=== PATIENT | male | born 1945 | race Caucasian/White ===

== ENCOUNTER 2019-11-11 06:45 | Outpatient (CLI) | payer OTHER, SELFPAY ==
--- NOTE | 2019-11-11 07:15 | US_ITS ---
WS: [id number] RIGHT UPPER QUADRANT ULTRASOUND HISTORY: epigastric pain COMPARISON: None available. Liver: 11.0 cm in length. Normal size and echogenicity with no intrahepatic dilatation. No mass. Gallbladder: Normally distended gallbladder with no stones or wall thickening. CBD: 0.3 cm Pancreas: Normal size and echogenicity. Right kidney: 10.6 cm in length. Normal echogenicity with no mass or hydronephrosis. Aorta and IVC: Unremarkable. No ascites. Stomach mucosa was prominent and the antrum was distended during the examination. US/US gall bladder [id number] IMPRESSION: Normal RIGHT upper quadrant ultrasound. Thickening of the stomach mucosa and distention of the antrum. Consider gastroe nteritis.
== END 2019-11-11 06:46 | disposition home or self-care (01) ==
PROVIDERS: Visit Provider Surgery
DX: R10.13 Epigastric pain (principal)
CPT/HCPCS: 76705

== ENCOUNTER 2019-11-18 07:29 | Outpatient (CLI) | payer OTHER, SELFPAY ==
--- NOTE | 2019-11-18 08:00 | NM_ITS ---
WS: [id number] NUCLEAR MEDICINE HIDA SCAN CLINICAL INFORMATION: epigastric pain TECHNIQUE: Following intravenous administration of 8.1 mCi of technetium 99m mebrofenin, images of th e abdomen were obtained over the course of 60 minutes. Next, gallbladder ejection fraction was determ ined by obtaining preprandial and one-hour postprandial images of the gallbladder following oral vijaya stion of Ensure. COMPARISON: None. FINDINGS: Normal hepatic uptake at 5 minutes. Gallbladder is visualized by 20 minutes. Normal common bile duct and small bowel. No evidence of acute cholecystitis or choledocholithiasis. Gallbladder ejection fraction 38% at the lower end of the range but within normal limits. No evidence of chronic cholecystitis. NM/NM hepatobiliary w phar* [id number] IMPRESSION: 1. No evidence of acute cholecystitis. 2. Gallbladder ejection fraction 38% at the lower end of the range within norm al limits. No evidence of chronic cholecystitis.
== END 2019-11-18 07:30 | disposition home or self-care (01) ==
LOC: RAD 07:30
PROVIDERS: PCP Internal Medicine; Visit Provider Surgery
DX: R10.13 Epigastric pain (principal)
CPT/HCPCS: 78227; A9537

== ENCOUNTER 2019-12-01 05:51 | Day surgery (SDC) | payer OTHER, SELFPAY ==
[2019-12-01] VITALS (9 sets, daily range): BP systolic 99–128; BP diastolic 48–62; PULSE 60–75; RESP 14–18; TEMP 36–36.9; O2SAT 95–100
[2019-12-01] MEDS: sodium chloride 0.9% 1,000 ML 30 ML IV (06:25)
--- NOTE | 2019-12-01 06:30 | ANES.PREANE2 ---
Pre-Anesthetic Assessment Pre-Anesthetic Assessment: Height/Weight: Height 1.78 m Weight 86.183 kg Temp Pulse Resp BP Pulse Ox 96.8 F L 65 18 128/62 98 12/01/19 06:06 12/01/19 06:06 12/01/19 06:06 12/01/19 06:06 12/01/19 06:06 Preop Diagnosis: Chronic cholecystitis Proposed Procedure: Operation Date: 12/01/19 07:00 Proposed Procedures p Laparoscopic Cholecystectomy 16353 R10.9(Not Applicable) - Ever De Souza MD Familial anesthetic complications: None Was Beta Tressa taken within 24 hours: Yes Last intake: Intake Last Liquid Date 11/30/19 Last Liquid Time 21:30 Last Solid Date 11/30/19 Last Solid Time 21:30 Social: Social History: No alcohol and No tobacco Exam: Pre-Anes Outpt Exam: alert, oriented x 3, clear to auscultation bilaterally and regular rate & rhythm Airway: Cervical ROM: WNL MP: 4 Additional comments: plates Pulmonary: Pulmonary: COPD and Sleep apnea (cpap) CV/HEM: CV/HEM: HTN : : None reported Hepatic: Hepatic: None reported GI: GI: None reported Metabolic: Metabolic: DM (on insulin) Musc/skel: Musc/skel: Lower Back Pain Neuropsych: Neuropsych: CVA (8 years ago - L carotid now has stent (residual numbness on R side, some trouble gripping and walking with right leg))), Neuropathy and Seizure (prior to stroke) Anesthetic Plan: ASA status: 3 Anesthesia: General Risk of > 500 ml blood loss (7ml/kg in children): No Meds/Allergies Current Medications: Current Medications Generic Name Dose Route Start Last Admin Trade Name Freq PRN Reason Stop Dose Admin Sodium Chloride 1,000 mls @ 30 ml s/hr 12/01/19 06:00 12/01/19 06:25 Sodium Chloride 0.9% IV 12/02/19 05:59 30 mls/hr .Q24H TRISH Administration PFSH Anesthesia PFSH: Social History Smoking and tobacco status: former smoker Data Anesthesia Cardiac Studies: No Data to Display
[2019-12-01 06:53] LABS: Glucose Point of Care 127 mg/dL (70-110)
--- NOTE | 2019-12-01 06:54 | W.PM.OPSUD ---
Surgery/Procedure H&P Update DATE OF PROCEDURE: December 01, 2019 DATE H&P PERFORMED: 11/26/19 H&P UPDATE INFORMATION: I have reviewed H&P completed within last 30 days, I have examined patient prior to procedure and No changes to prior documentation PREOP DIAGNOSIS: Chronic cholecystitis PLANNED PROCEDURE: Operation Date: 12/01/19 07:00 Proposed Procedures p Laparoscopic Cholecystectomy 19943 R10.9(Not Applicable) - Ever De Souza MD
--- NOTE | 2019-12-01 07:36 | PM.OP ---
Operative Report Date of procedure: December 01, 2019 Pre-op Diagnosis: Chronic cholecystitis Post-op diagnosis: same Procedure Done: Laparoscopic cholecystectomy. Specimens removed/disposition: Gallbladder Surgeon: Ever De Souza Anesthesia: General Estimated blood loss (mL): 5 Condition: stable Disposition: PACU Procedure: The patient was taken to the operating room and was intubated under general anesthesia. After the antibiotic had been administered, the abdomen was prepped and draped in a sterile manner. Using a #15 blade, a 1 centimeter infraumbilical curvilinear incision was made and using an open Christiane technique the peritoneal cavity was entered. A 10 millimeter port was placed and 15 millimeters of pneumoperitoneum was created. A 10 millimeter, 30 degrees scope was then introduced. Three 5 millimeter ports were placed in the epigastric, midclavicular and the anterior axillary line two fingerbreadths below the costal margin on the right side under the direct visualization. Ratcheted forceps were introduced into the lateral most port and was used to retract the fundus of the gallbladder cephalad and using forceps the infundibulum of the gallbladder was retracted laterally. Using L-hook cautery the peritoneum overlying the Calot's triangle was opened medially and laterally until the cystic duct and the cystic artery were skeletonized. Dissection was carried along the body of the gallbladder and after ensuring critical view of safety, 4 clips applied on the cystic duct and 3 clips applied on the cystic artery and cut leaving, 3 clips on the remaining portion of the duct and 2 clips on the remaining portion of the artery. The rest of the gallbladder was dissected off the liver using L-hook cautery. There was no bleeding or bile leaking noted from the gallbladder fossa and the clips appeared to be in place. An EndoCatch bag was introduced to remove the gallbladder. All the ports were removed under direct visualization and there was no bleeding noted from the port sites. The fascia of the umbilicus was closed using [id number] 0 Vicryl sutures and the subcutaneous tissue was approximated using 3-0 Vicryl sutures. The skin at all four ports were closed using 4-0 Monocryl and Dermabond. A total of 10 millimeters of 0.5% Marcaine was infiltrated around the port sites. The patient was stable throughout the procedure.
--- NOTE | 2019-12-01 08:04 | SUR.PHASEI ---
0755 pt awakeseasily to voice oral airway out pt verbalized no pain or nausea, pt on ra trial.
[2019-12-01 08:07] LABS: Glucose Point of Care 130 mg/dL (70-110)
== END 2019-12-01 09:00 | disposition home or self-care (01) ==
PROVIDERS: PCP Emergency Medicine Emergency Medical Services; Visit Provider Surgery
PROC: 0FT44ZZ Resection of Gallbladder, Percutaneous Endoscopic Approach (ICD-10-PCS; CPT 47562; principal; 2019-12-01 07:00)
DX: K81.1 Chronic cholecystitis (principal); J44.9 Chronic obstructive pulmonary disease, unspecified; I10 Essential (primary) hypertension; G47.30 Sleep apnea, unspecified; E11.9 Type 2 diabetes mellitus without complications; I69.851 Hemiplegia and hemiparesis following other cerebrovascular disease affecting right dominant side; Z87.891 Personal history of nicotine dependence; Z79.4 Long term (current) use of insulin
CPT/HCPCS: 47562; 12345; 36416; 82962; 88304; J0131; J0690; J2001; J2405; J2704; J2710; J2765; J3010; J3490; J7030

== ENCOUNTER 2020-08-14 06:53 | Outpatient (CLI) | payer OTHER, SELFPAY ==
--- NOTE | 2020-08-14 07:06 | USCV_ITS ---
Fidel Holliday Age: 75 Gender: M : 1945 Exam Date: 08/14/2020 07:14 Ordering Phys: Pete Pope DO Technologist: Iram Espana [place] [facility] [place]ication: BLE PAIN IN FEET, NUMBNESS, DM Risk Factors: DM X 50 YEARS, EX SMOKER Previous Vascular Surgery: CAROTID STENT RIGHT LEFT BP: 154.0 / 63.00 BP: 156.0/ 75.00 0 0 Waveform Velocity (cm/s) Velocity (cm/s) Waveform Triphasic 143.3 Iliac Prox 151.2 Triphasic Triphasic Iliac Mid Triphasic 120.9 144.6 Triphasic 127.5 Iliac Distal 159.1 Triphasic Monophasic 149.9 ASSEMBLY LINE WORKER 130.1 Triphasic Monophasic 77.6 SFA Prox 103.9 Triphasic Monophasic 69.7 SFA Mid 145.9 Triphasic Monophasic 76.2 SFA Dist 188.0 Triphasic Monophasic 34.2 POP 166.2 Biphasic SUPERVISOR COLD ROLLING 60.6 Biphasic MYRTLE 0.2 FINDINGS NO FLOW DETECTED RT SUPERVISOR COLD ROLLING DPA NO FLOW DETECTED LT DPA. LT PT PRESSURE 32 Abnormal Doppler waveforms in the femoral and popliteal artery on the right side; popliteal artery and posterior tibial artery on the left side CONCLUSIONS 1. Features of total occlusion of the posterior tibial and dorsalis pedis artery on the right side 2. Features of total occlusion of the dorsalis pedis artery on the left side. 3. Markedly diminished resting MYRTLE on the left side, suggestive of severe obstructive arterial disease, possibly multisegmental. No similar previous studies are available for comparison Dr Lois Last MD [facility] (Electronically Signed) Final Date: 14 August 2020 13:59 S
== END 2020-08-14 06:54 | disposition home or self-care (01) ==
LOC: US 07:01
PROVIDERS: PCP Emergency Medicine Emergency Medical Services; Visit Provider Emergency Medicine Emergency Medical Services
DX: M79.604 Pain in right leg (principal); M79.605 Pain in left leg; R20.0 Anesthesia of skin; E11.9 Type 2 diabetes mellitus without complications
CPT/HCPCS: 93925

== ENCOUNTER 2020-08-31 08:11 | Inpatient (IN) | payer OTHER, MEDICARE, SELFPAY ==
[2020-08-31] VITALS (8 sets, daily range): BP systolic 110–165; BP diastolic 57–86; PULSE 100–128; RESP 15–24; TEMP 37.1–38.1; O2SAT 92–98; BMI 27.2
--- NOTE | 2020-08-31 08:33 | XR_ITS ---
WS: [id number] PORTABLE CHEST HISTORY: sob COMPARISON: None available. Benign granuloma RIGHT lung. No pneumonia. Very slight blunting of the LEFT costophrenic angle. No pn eumothorax. Cardiac size: Normal. Mediastinum/Aorta: Normal mediastinum. Mild bilateral AC joint arthritis. XR/XR chest 1V portable [id number] IMPRESSION: 1. No pneumonia. 2. Prior granulomatous disease. 3. Very tiny LEFT pleural effusion versus pleural thickening.
--- NOTE | 2020-08-31 08:34 | ECG_ITS ---
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 Measurements Intervals [place] Rate: 99 P: 50 AL: 210 QRS: -58 QRSD: 153 T: 58 QT: 341 QTc: 438 Interpretive Statements SINUS RHYTHM WITH FIRST DEGREE AV BLOCK RIGHT BUNDLE BRANCH BLOCK [120+ ms QRS DURATION, UPRIGHT V1, 40+ ms S IN I/aVL/V4/V5/V6] LEFT ANTERIOR FASCICULAR BLOCK [QRS AXIS <= -45, QR IN I, RS IN II] MINIMAL VOLTAGE CRITERIA FOR LVH, CONSIDER NORMAL VARIANT [MEETS CRITERIA IN ONE OF: R(aVL), S(V1), R(V5), R(V5/V6)+S(V1)] POSSIBLE SEPTAL MYOCARDIAL INFARCTION , OF INDETERMINATE AGE [30 ms Q WAVE IN V1/V2] No previous ECG available for comparison Electronically Signed On 08-31-2020 20:21:54 NAVIGATING OFFICER by Em Chand M.D. [email or web address]
--- NOTE | 2020-08-31 08:53 | ED_ITS ---
HPI - COVID General: Chief Complaint: COVID symptoms Stated Complaint: SOB/Neck pain/Fever Time Seen by Provider: 08/31/20 08:31 Triage information: Has fever, cough or shortness of breath . No known COVID + exposure last 14 days History of Present Illness: HPI Narrative: 75-year-old male presents emergency room complaining of fever and neck pain. Has had a temp of 100.5. He is also tachycardic and a little bit tachypneic his oxygen sats are in the mid to low 90s. He has been short of breath along with a neck pain for the last couple of days. Patient has a history of hypertension diabetes mellitus. No diarrhea no nausea or vomiting. He had been doing some heavy lifting several days ago and the neck pain started that seem to precipitate his neck and back pain. He had received his first Covid vaccine 1 week ago he thinks that is when his fever started. MD complaint: has COVID symptoms Prior covid testing: no COVID 19 common symptoms: positive fever(s), chills, cough, productive cough, dyspnea, fatigue and nasal congestion; negative loss of sense of smell and/or taste, nausea or vomiting COVID 19 other sytmptoms: negative chest pain or requiring oxygen Onset (ago): day(s) (3) Severity: mild Pertinent comorbid conditions: diabetes, hypertension and COPD/respiratory disease Treatment prior to arrival: none COVID Results: SARS-CoV-2 Antigen (Rapid) Negative (Negative) 08/31/20 09:04 08/31/20 Nasal/Oral Coronavirus 2019 PCR Pending 08/31/20 14:36 08/31/20 Review of Systems Const: Reports: fever(s) and chills ENMT: Reports: nasal congestion Card: Denies: chest pain Resp: Reports: dyspnea and productive cough GI: Denies: nausea or vomiting : Denies: flank pain, dysuria, urinary frequency or urinary urgency Skin/Breast: Denies: rash or pruritus PFSH ED PFSH: Medical History (Updated 09/01/20 @ 09:13 by Chin Correa DO) Bilateral carotid artery stenosis COPD (chronic obstructive pulmonary disease) Diabetes GERD (gastroesophageal reflux disease) Hearing loss History of left common carotid artery stent placement Hypertension PAD (peripheral artery disease) Peripheral vascular disease Peripheral vascular disease Seizure disorder Sleep apnea Surgical History H/O carotid endarterectomy H/O esophagogastroduodenoscopy H/O knee surgery History of back surgery S/P appendectomy Status post colonoscopy with polypectomy Status post laparoscopic cholecystectomy (12/01/19) Family History Other CAD (coronary artery disease) Cancer Dementia Diabetes Hyperlipidemia Hypertension Pacemaker Stroke Denies family history of Chronic kidney disease (CKD) Anesthesia complication Bleeding disorder Family history of premature coronary artery disease Lung disease Social History Smoking and tobacco status: former smoker Quit status (tobacco): has quit using tobacco Alcohol intake: current Alcohol intake frequency: holidays/special occasions only Physical Exam Const: COMMON NORMALS: no acute distress GENERAL APPEARANCE: cooperative and comfortable ORIENTATION/CONSCIOUSNESS: Yes awake, Yes oriented to person, Yes oriented to place and Yes oriented to time HENMT: COMMON NORMALS: normocephalic, atraumatic and hearing grossly normal bilaterally HEAD & SCALP: normocephalic and atraumatic Neck/C-Spine: COMMON NORMALS: no JVD Resp: COMMON NORMALS: normal respiratory effort, No retractions, No use of accessory muscles and clear to auscultation bilaterally AUSCULTATION: clear to auscultation bilaterally Cardio: COMMON NORMALS: no JVD, regular rate, regular rhythm and No murmurs present (Cardio) RATE: regular rate RHYTHM: regular rhythm GI: COMMON NORMALS: Soft to palpation and No hepatosplenomegaly present AUSCULTATION: Yes normoactive bowel sounds PALPATION: Yes Soft to palpation, No Tenderness to palpation present (GI), No Guarding due to palpation present (GI) and Yes No hepatosplenomegaly present Extremity: COMMON NORMALS: normal to inspection, capillary refill normal, no clubbing, cyanosis or edema, no calf tenderness and no pedal edema Neuro: SENSORIUM/ORIENTATION: Yes oriented to person, Yes oriented to place and Yes oriented to time Skin: COMMON NORMALS: no rashes or lesions noted GENERAL SKIN EXAM: no rashes or lesions noted Course Vital Signs: Vital signs: Vital Signs Temperature 98.4 F 09/01/20 07:25 Pulse Rate 94 09/01/20 07:25 Respiratory Rate 18 09/01/20 07:25 Blood Pressure 152/69 09/01/20 07:25 Pulse Oximetry 95 09/01/20 07:25 MDM - COVID Lab Data: Labs: Lab Results 08/31/20 08/31/20 08/31/20 Range/Units 08:55 08:56 08:56 WBC 18.3 H (4.0-10.0) 10^3/ uL RBC 3.59 L (4.1-5.3) 10^6/u L Hgb 11.3 L (11.7-16.6) g/dL Hct 33.3 L (42.0-52.0) % MCV 92.8 (80-94) fL MCH 31.5 (28.0-34.0) pg MCHC 33.9 (30.0-36.0) g/dL RDW 12.9 (12.1-15.1) % Plt Count 274 (130-400) 10^3/c mm MPV 10.7 H (7.4-10.4) fL Neut % (Auto) 83.2 % Lymph % (Auto) 4.5 % Anderson % (Auto) 11.4 % Eos % (Auto) 0.0 % Baso % (Auto) 0.2 % Neut # (Auto) 15.24 H (1.8-7.7) 10^3/u L Lymph # (Auto) 0.8 (0.8-4.8) 10^3/u L Anderson # (Auto) 2.1 H (0.2-0.9) 10^3/u L Eos # (Auto) 0.0 (0.0-0.8) 10^3/u L Baso # (Auto) 0.0 (0.0-0.1) 10^3/u L Nucleated RBC % (a uto) 0 % Nucleated RBCs # 0.0 /100WBC D-Dimer (0-0.59) ug/mIFE U Sodium 125 L (136-145) mmol/L Potassium 4.6 (3.5-5.1) mmol/L Chloride 94 L (98-107) mmol/L Carbon Dioxide 21 L (22-29) mmol/L Anion Gap 14.6 (5-19) BUN 19 (8-23) mg/dL Creatinine 1.0 (0.7-1.2) mg/dL GFR Calculation Not Reportable Glucose 307 H (65-115) mg/dL POC Glucose 330 H (70-110) mg/dL Calculated Osmolal ity 274 L (285-295) mOsm/k g Lactic Acid (0.5-2.2) mmol/L Calcium 9.1 (8.5-10.5) mg/dL Total Bilirubin 0.8 (0.15-1.2) mg/dL AST 15 (0-40) U/L ALT 14 (0-41) U/L Alkaline Phosphata se 73 (40-130) IU/L Troponin T Baselin e (0-15) ng/L Troponin T 120 Min grand traverse (0-15) ng/L Delta Troponin T (0-10) ABS# Troponin T Hi Sens 6Hr (0-15) ng/L Troponin T Hi Sens 6Hr Delta (0-12) ng/L NT-Pro-B Natriuret Pep 1116 H (0-450) pg/mL Total Protein 6.2 L (6.6-8.7) g/dL Albumin 3.5 (3.5-5.2) g/dL Globulin 2.7 (1.3-4.6) g/dL Urine Color Urine Appearance Urine pH Ur Specific Gravit y Urine Protein Urine Glucose (UA) Urine Ketones Urine Blood Urine Nitrate Urine Bilirubin Prot Sulfosalicyli c Acd Urine Urobilinogen Ur Leukocyte Soila ase Urine RBC Urine WBC Ur Squamous Epith Cells Ur Transition Epit h Cell Ur Renal Epithelia l Cell Calcium Oxalate Cr ystal Uric Acid Crystals Triple Phos Leticia ls Other Crystals Amorphous Sediment Urine Bacteria Hyaline Casts Fine Granular Cast s Coarse Granular Ca sts RBC Casts Other Casts Urine Mucus Urine Trichomonas Urine Yeast Urine Sperm Ur Oval Fat Bodies SARS-CoV-2 Ag (Rap id) (Negative) 08/31/20 08/31/20 08/31/20 Range/Units 08:56 08:56 08:56 WBC (4.0-10.0) 10^3/ uL RBC (4.1-5.3) 10^6/u L Hgb (11.7-16.6) g/dL Hct (42.0-52.0) % MCV (80-94) fL MCH (28.0-34.0) pg MCHC (30.0-36.0) g/dL RDW (12.1-15.1) % Plt Count (130-400) 10^3/c mm MPV (7.4-10.4) fL Neut % (Auto) % Lymph % (Auto) % Anderson % (Auto) % Eos % (Auto) % Baso % (Auto) % Neut # (Auto) (1.8-7.7) 10^3/u L Lymph # (Auto) (0.8-4.8) 10^3/u L Anderson # (Auto) (0.2-0.9) 10^3/u L Eos # (Auto) (0.0-0.8) 10^3/u L Baso # (Auto) (0.0-0.1) 10^3/u L Nucleated RBC % (a uto) % Nucleated RBCs # /100WBC D-Dimer 2.29 H (0-0.59) ug/mIFE U Sodium (136-145) mmol/L Potassium (3.5-5.1) mmol/L Chloride (98-107) mmol/L Carbon Dioxide (22-29) mmol/L Anion Gap (5-19) BUN (8-23) mg/dL Creatinine (0.7-1.2) mg/dL GFR Calculation Glucose (65-115) mg/dL POC Glucose (70-110) mg/dL Calculated Osmolal ity (285-295) mOsm/k g Lactic Acid 1.5 (0.5-2.2) mmol/L Calcium (8.5-10.5) mg/dL Total Bilirubin (0.15-1.2) mg/dL AST (0-40) U/L ALT (0-41) U/L Alkaline Phosphata se (40-130) IU/L Troponin T Baselin e 41 H (0-15) ng/L Troponin T 120 Min grand traverse (0-15) ng/L Delta Troponin T (0-10) ABS# Troponin T Hi Sens 6Hr (0-15) ng/L Troponin T Hi Sens 6Hr Delta (0-12) ng/L NT-Pro-B Natriuret Pep (0-450) pg/mL Total Protein (6.6-8.7) g/dL Albumin (3.5-5.2) g/dL Globulin (1.3-4.6) g/dL Urine Color Urine Appearance Urine pH Ur Specific Gravit y Urine Protein Urine Glucose (UA) Urine Ketones Urine Blood Urine Nitrate Urine Bilirubin Prot Sulfosalicyli c Acd Urine Urobilinogen Ur Leukocyte Soila ase Urine RBC Urine WBC Ur Squamous Epith Cells Ur Transition Epit h Cell Ur Renal Epithelia l Cell Calcium Oxalate Cr ystal Uric Acid Crystals Triple Phos Leticia ls Other Crystals Amorphous Sediment Urine Bacteria Hyaline Casts Fine Granular Cast s Coarse Granular Ca sts RBC Casts Other Casts Urine Mucus Urine Trichomonas Urine Yeast Urine Sperm Ur Oval Fat Bodies SARS-CoV-2 Ag (Rap id) (Negative) 08/31/20 08/31/20 08/31/20 Range/Units 09:04 11:00 13:59 WBC (4.0-10.0) 10^3/ uL RBC (4.1-5.3) 10^6/u L Hgb (11.7-16.6) g/dL Hct (42.0-52.0) % MCV (80-94) fL MCH (28.0-34.0) pg MCHC (30.0-36.0) g/dL RDW (12.1-15.1) % Plt Count (130-400) 10^3/c mm MPV (7.4-10.4) fL Neut % (Auto) % Lymph % (Auto) % Anderson % (Auto) % Eos % (Auto) % Baso % (Auto) % Neut # (Auto) (1.8-7.7) 10^3/u L Lymph # (Auto) (0.8-4.8) 10^3/u L Anderson # (Auto) (0.2-0.9) 10^3/u L Eos # (Auto) (0.0-0.8) 10^3/u L Baso # (Auto) (0.0-0.1) 10^3/u L Nucleated RBC % (a uto) % Nucleated RBCs # /100WBC D-Dimer (0-0.59) ug/mIFE U Sodium (136-145) mmol/L Potassium (3.5-5.1) mmol/L Chloride (98-107) mmol/L Carbon Dioxide (22-29) mmol/L Anion Gap (5-19) BUN (8-23) mg/dL Creatinine (0.7-1.2) mg/dL GFR Calculation Glucose (65-115) mg/dL POC Glucose (70-110) mg/dL Calculated Osmolal ity (285-295) mOsm/k g Lactic Acid (0.5-2.2) mmol/L Calcium (8.5-10.5) mg/dL Total Bilirubin (0.15-1.2) mg/dL AST (0-40) U/L ALT (0-41) U/L Alkaline Phosphata se (40-130) IU/L Troponin T Baselin e (0-15) ng/L Troponin T 120 Min grand traverse 40.20 H (0-15) ng/L Delta Troponin T -0.80 L (0-10) ABS# Troponin T Hi Sens 6Hr (0-15) ng/L Troponin T Hi Sens 6Hr Delta (0-12) ng/L NT-Pro-B Natriuret Pep (0-450) pg/mL Total Protein (6.6-8.7) g/dL Albumin (3.5-5.2) g/dL Globulin (1.3-4.6) g/dL Urine Color Cancelled Urine Appearance Cancelled Urine pH Cancelled Ur Specific Gravit y Cancelled Urine Protein Cancelled Urine Glucose (UA) Cancelled Urine Ketones Cancelled Urine Blood Cancelled Urine Nitrate Cancelled Urine Bilirubin Cancelled Prot Sulfosalicyli c Acd Cancelled Urine Urobilinogen Cancelled Ur Leukocyte Soila ase Cancelled Urine RBC Cancelled Urine WBC Cancelled Ur Squamous Epith Cells Cancelled Ur Transition Epit h Cell Cancelled Ur Renal Epithelia l Cell Cancelled Calcium Oxalate Cr ystal Cancelled Uric Acid Crystals Cancelled Triple Phos Leticia ls Cancelled Other Crystals Cancelled Amorphous Sediment Cancelled Urine Bacteria Cancelled Hyaline Casts Cancelled Fine Granular Cast s Cancelled Coarse Granular Ca sts Cancelled RBC Casts Cancelled Other Casts Cancelled Urine Mucus Cancelled Urine Trichomonas Cancelled Urine Yeast Cancelled Urine Sperm Cancelled Ur Oval Fat Bodies Cancelled SARS-CoV-2 Ag (Rap id) Negative (Negative) 08/31/20 08/31/20 Range/Units 15:19 15:39 WBC (4.0-10.0) 10^3/ uL RBC (4.1-5.3) 10^6/u L Hgb (11.7-16.6) g/dL Hct (42.0-52.0) % MCV (80-94) fL MCH (28.0-34.0) pg MCHC (30.0-36.0) g/dL RDW (12.1-15.1) % Plt Count (130-400) 10^3/c mm MPV (7.4-10.4) fL Neut % (Auto) % Lymph % (Auto) % Anderson % (Auto) % Eos % (Auto) % Baso % (Auto) % Neut # (Auto) (1.8-7.7) 10^3/u L Lymph # (Auto) (0.8-4.8) 10^3/u L Anderson # (Auto) (0.2-0.9) 10^3/u L Eos # (Auto) (0.0-0.8) 10^3/u L Baso # (Auto) (0.0-0.1) 10^3/u L Nucleated RBC % (a uto) % Nucleated RBCs # /100WBC D-Dimer (0-0.59) ug/mIFE U Sodium (136-145) mmol/L Potassium (3.5-5.1) mmol/L Chloride (98-107) mmol/L Carbon Dioxide (22-29) mmol/L Anion Gap (5-19) BUN (8-23) mg/dL Creatinine (0.7-1.2) mg/dL GFR Calculation Glucose (65-115) mg/dL POC Glucose (70-110) mg/dL Calculated Osmolal ity (285-295) mOsm/k g Lactic Acid (0.5-2.2) mmol/L Calcium (8.5-10.5) mg/dL Total Bilirubin (0.15-1.2) mg/dL AST (0-40) U/L ALT (0-41) U/L Alkaline Phosphata se (40-130) IU/L Troponin T Baselin e (0-15) ng/L Troponin T 120 Min grand traverse (0-15) ng/L Delta Troponin T (0-10) ABS# Troponin T Hi Sens 6Hr 38.07 H (0-15) ng/L Troponin T Hi Sens 6Hr Delta -2.93 L (0-12) ng/L NT-Pro-B Natriuret Pep (0-450) pg/mL Total Protein (6.6-8.7) g/dL Albumin (3.5-5.2) g/dL Globulin (1.3-4.6) g/dL Urine Color Yellow Urine Appearance Clear Urine pH 5 Ur Specific Gravit y 1.015 Urine Protein 1+ H Urine Glucose (UA) 4+ H Urine Ketones Negative Urine Blood Neg Urine Nitrate Negative Urine Bilirubin Neg Prot Sulfosalicyli c Acd Urine Urobilinogen 1 H Ur Leukocyte Soila ase Negative Urine RBC 0-4 H Urine WBC 0-4 H Ur Squamous Epith Cells 0-4 H Ur Transition Epit h Cell Ur Renal Epithelia l Cell Calcium Oxalate Cr ystal Uric Acid Crystals Triple Phos Leticia ls Other Crystals Amorphous Sediment 2+ Urine Bacteria Trace Hyaline Casts Fine Granular Cast s Coarse Granular Ca sts RBC Casts Other Casts Urine Mucus 2+ Urine Trichomonas Urine Yeast Urine Sperm Ur Oval Fat Bodies SARS-CoV-2 Ag (Rap id) (Negative) COVID Results: SARS-CoV-2 Antigen (Rapid) Negative (Negative) 08/31/20 09:04 08/31/20 Nasal/Oral Coronavirus 2019 PCR Pending 08/31/20 14:36 08/31/20 Discharge Plan Discharge Patient Disposition: Admitted As Inpatient Admit Provider: Sudeep Bhatti Clinical Impression: Acute pyelonephritis, Community acquired pneumonia, Dehydration with hyponatremia, Diabetes mellitus type 2 in nonobese, COPD (chronic obstructive pulmonary disease) Condition: Stable Coding Level of Care Code ED It Security Consultant for Katherine Fwd Exam Comprehensive
[2020-08-31 09:01] LABS: Glucose Point of Care 330 mg/dL (70-110)
[2020-08-31 09:11] LABS: Basophils % 0.2 %; Hematocrit 33.3 % (42.0-52.0); Hemoglobin 11.3 g/dL (11.7-16.6); Lymphocytes # 0.8 10^3/uL (0.8-4.8); Lymphocytes % 4.5 %; Mean Corpuscular HGB Conc 33.9 g/dL (30.0-36.0); Mean Corpuscular Hemoglobin 31.5 pg (28.0-34.0); Mean Corpuscular Volume 92.8 fL (80-94); Mean Platelet Volume 10.7 fL (7.4-10.4); Monocytes # 2.1 10^3/uL (0.2-0.9); Monocytes % 11.4 %; Neutrophils # 15.24 10^3/uL (1.8-7.7); Neutrophils % 83.2 %; Nucleated Red Blood Cells % 0 %; Platelet Count 274 10^3/cmm (130-400); Red Blood Count 3.59 10^6/uL (4.1-5.3); Red Cell Distribution Width 12.9 % (12.1-15.1); White Blood Count 18.3 10^3/uL (4.0-10.0)
[2020-08-31 09:33] LABS: Lactic Sepsis W/Reflex 1.5 mmol/L (0.5-2.2)
[2020-08-31 09:36] LABS: Troponin(5th) Baseline 41 ng/L (0-15)
[2020-08-31 09:41] LABS: Alanine Aminotransferase 14 U/L (0-41); Albumin Level 3.5 g/dL (3.5-5.2); Alkaline Phosphatase 73 IU/L (40-130); Anion Gap 14.6 (5-19); Aspartate Amino Transferase 15 U/L (0-40); Blood Urea Nitrogen 19 mg/dL (8-23); Calcium 9.1 mg/dL (8.5-10.5); Carbon Dioxide 21 mmol/L (22-29); Chloride 94 mmol/L (98-107); Creatinine Clr Calc Pharmacy 68.4891; Globulin 2.7 g/dL (1.3-4.6); Glucose 307 mg/dL (65-115); NT Pro B Type Natriuretic Pept 1116 pg/mL (0-450); Osmolality Calculated 274 mOsm/kg (285-295); Potassium 4.6 mmol/L (3.5-5.1); Sodium 125 mmol/L (136-145); Total Bilirubin 0.8 mg/dL (0.15-1.2); Total Protein 6.2 g/dL (6.6-8.7)
[2020-08-31 09:49] LABS: D Dimer 2.29 ug/mIFEU (0-0.59)
[2020-08-31 09:55] LABS: SARS Covid-2 Antigen Negative (Negative)
--- NOTE | 2020-08-31 10:34 | ECG_ITS ---
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 Measurements Intervals [place] Rate: 116 P: 199 WA: 203 QRS: -58 QRSD: 135 T: 71 QT: 329 QTc: 457 Interpretive Statements SINUS TACHYCARDIA RIGHT BUNDLE BRANCH BLOCK [120+ ms QRS DURATION, UPRIGHT V1, 40+ ms S IN I/aVL/V4/V5/V6] LEFT ANTERIOR FASCICULAR BLOCK [QRS AXIS <= -45, QR IN I, RS IN II] WARNING: DATA QUALITY MAY AFFECT INTERPRETATION Compared to ECG 08/31/2020 14:57:54 Atrial flutter no longer present Myocardial infarct finding no longer present Electronically Signed On 08-31-2020 20:26:13 TRANSMISSION OPERATOR by Em Chand M.D. [id number]
[2020-08-31] MEDS: sodium chloride 0.9% 1,000 ML 999 ML IV ×2 (10:41→15:36)
--- NOTE | 2020-08-31 11:53 | CT_ITS ---
WS: [id number] CT CHEST ANGIOGRAPHY WITH REFORMATS HISTORY: dyspnea TECHNIQUE: Contiguous axial images are obtained through the chest during arterial injection of intrav enous contrast. Images are reconstructed to evaluate the pulmonary arteries. MIP imaging also reviewe d. All CT scans at [facility] use at least one of these dose optimization techniques: aut omated exposure control; mA and/or kV adjustment per patient size (includes targeted exams where dose is matched to clinical indication); or iterative reconstruction. CONTRAST: Omnipaque 350; 95 mL IV. DLP: 552.93 mGy.cm COMPARISON: 01/31/2010 Good opacification of the pulmonary arteries. There are no filling defects or pulmonary emboli. Nan l size pulmonary artery. Mild atherosclerosis aorta with no aneurysm. Heart size is mildly enlarged. Small amount of pericardial fluid versus pericardial thickening. Mildly prominent mediastinal and hil ar lymph nodes are indeterminate measuring up to 11 mm in diameter. Prior granulomatous disease. No pulmonary congestion. Atelectasis in the medial LEFT lower lobe. Ther e is additional bronchiectasis within the area of atelectasis which has progressed since the prior st udy. Very minimal dependent changes at the lung bases bilaterally. Bilateral perinephric stranding and edema. Increase in thoracic kyphosis. CT/CT angio chest PE protcl [id number] IMPRESSION: 1. No pulmonary embolism. 2. Subsegmental but progressive atelectasis in the medial LEFT lower lobe with associated bronchiectasis. 3. Mild cardiomegaly with a small pericardial effusion. 4. Mild bilateral perinephric stranding. This may be chronic or acute. Correla te for possible pyelonephritis.
[2020-08-31] MEDS: iohexol 350 mg/mL 100 mL Btl IV (13:12)
--- NOTE | 2020-08-31 13:32 | CT_ITS ---
WS: [id number] CT ABDOMEN AND PELVIS WITH CONTRAST HISTORY: Diffuse abdominal pain. TECHNIQUE: Imaging performed of the abdomen and pelvis with IV contrast. Single phase imaging of the abdomen. Coronal and sagittal reformats are submitted. All CT scans at [facility] use at least one of these dose optimization techniques: automated exposure control; mA and/or kV adjustment per patient size (includes targeted exams where dose is matched to clinical indication); or iterativ e reconstruction. IV CONTRAST: Omnipaque 300; 95 mL IV. Oral contrast: No DLP: 1049.81 mGy.cm COMPARISON: 02/25/2011. Lower thorax: Dependent changes at the lung bases. Partial atelectasis medial LEFT lower lobe with as sociated bronchiectasis. Mild enlargement of the heart and a small amount of pericardial fluid versus pericardial thickening. No hiatal hernia. Liver/biliary system: Normal size with no intrahepatic dilatation. Gallbladder: Status post cholecystectomy. Pancreas: Moderate atrophy of the pancreas. No adjacent inflammation. No duct dilatation. Spleen: Normal. Adrenal glands: Normal. Right kidney: Normal size RIGHT kidney with no obstruction. There is moderate to severe perinephric s tranding. Increasing fluid along the inferior pole. Left kidney: Moderate amount of perinephric stranding. No obstruction or mass. Aorta: Severe atherosclerosis of aorta and mesenteric branches. There is mild narrowing of the infrar enal aorta with at least moderate stenosis involving the proximal iliac arteries. Lymphadenopathy: None. Free fluid: None. GI tract: There is marked fecal retention throughout the colon with constipation. No focal area of ob struction. There are a few small bowel loops which are mildly distended with fluid measuring up to 2. 6 cm. The appendix is normal. Mild thickening of the pylorus and antrum of the stomach. May be due to peristalsis. Abdominal wall: Unremarkable abdominal wall. No hernia. Pelvis: Moderately well distended urinary bladder. High density contrast fills a large portion of the bladder from a prior contrast injection the same day. No free fluid in the pelvis. Bones: L4 anterolisthesis by 7 mm with bilateral pars defects at L4. CT/CT abdomen pelvis w con* [id number] IMPRESSION: 1. Significant bilateral perinephric stranding and fluid. Correlate for possib le pyelonephritis. No focal abscess or obstruction. 2. Mild thickening of the pylorus and antrum. May be due to peristalsis or mil d gastritis. 3. Marked constipation. 4. No GI tract obstruction. 5. Prior cholecystectomy. 6. Advanced atherosclerosis in the infrarenal aorta with stenosis involving th e proximal iliac arteries bilaterally, LEFT greater than RIGHT. 7. Grade 1 spondylolisthesis of L4 with bilateral pars defects.
[2020-08-31] MEDS: cefTRIAXone 1,000 MG in sodium chloride 0.9% (plus) 50 ML 100 MG IV (14:10)
--- NOTE | 2020-08-31 14:34 | ECG_ITS ---
[facility] Test Date: 2020-08-31 Pat Name: Fidel Holliday Department: Room: Gender: Male Transitional Care Nurse: : 1945 Requested By: Randall Duarte Order Number: [id number] Hortensia MD: VENICE TREVINO Measurements Intervals [place] Rate: 112 P: HI: QRS: -61 QRSD: 134 T: 72 QT: 328 QTc: 448 Interpretive Statements ATRIAL FLUTTER/TACHYCARDIA WITH RAPID VENTRICULAR RESPONSE RIGHT BUNDLE BRANCH BLOCK [120+ ms QRS DURATION, UPRIGHT V1, 40+ ms S IN I/aVL/V4/V5/V6] LEFT ANTERIOR FASCICULAR BLOCK [QRS AXIS <= -45, QR IN I, RS IN II] POSSIBLE SEPTAL MYOCARDIAL INFARCTION , PROBABLY OLD [30 ms Q WAVE IN V1/V2] Compared to ECG 08/31/2020 10:33:12 Sinus rhythm no longer present First degree AV block no longer present Myocardial infarct finding still present Electronically Signed On 09-02-2020 21:35:40 VEGETABLE HANDLER by VENICE TREVINO [id number]
[2020-08-31] MEDS: iodixanol 320 mg/mL 100mL Btl IV (14:51)
--- NOTE | 2020-08-31 15:02 | PC.NURSE ---
EKG done at 1500 and shown to ER doctor
[2020-08-31] MEDS: dexamethasone 4 mg/mL INJ 6 MG IVP (15:34)
[2020-08-31 15:50] LABS: Troponin 5 6HR 38.07 ng/L (0-15)
[2020-08-31 15:51] LABS: Troponin 5 6HR Delta -2.93 ng/L (0-12)
[2020-08-31 16:05] LABS: Amorphous Sediment Urine 2+ /hpf; Bacteria Urine TRACE /hpf; Bilirubin Urine Neg (Negative); Blood Urine Neg (Negative); Glucose Urine UA 4+ (Normal); Ketones Urine Negative (Negative); Leukocyte Esterase Urine Negative (Negative); Mucus Urine 2+ /hpf; Nitrate Urine Negative (Negative); Protein Urine 1+ (Negative); RBC Urine 0-4 /hpf (0-2); Specific Gravity, Urine 1.015 (1.005-1.030); Squamous Epithelial Cell Urine 0-4 /hpf (0-5); Urine Appearance Clear (CLEAR); Urine Color Yellow (Yellow); Urobilinogen Urine 1 mg/dL (Negative); WBC Urine 0-4 /hpf (0-5); pH Urine 5 (5-7)
--- NOTE | 2020-08-31 17:07 | P.HP_ITS ---
Providers/Chief Complaint Admitting Physician: Sudeep Bhatti MD Primary Care Provider: Pete Pope DO Chief Complaint: DIABETIC, FLUNCUATING BLOOD SUGAR, SOB History of Present Illness Fidel Holliday is a 75 year old male presents to emergency department with gradually worsening generalized weakness/malaise and some dyspnea on exertion. Patient has been febrile in the last couple of days with temperature 101 yesterday. He reports having clear phlegm productive cough which is chronic due to environmental allergies. He reports having difficulty with urination. Slow stream and frequent urinations but otherwise denies any significant odynuria. Reports that in the last couple days he has been more constipated. He has been having decreased appetite and oral intake. He denies any problems with tasting food. For the last 1 week he has been having neck and bilateral shoulder pain but mostly on the right. Reports that this reminded him similar pain approxima tely [address] Pope was treated with muscle relaxant. Reports that in the last 1 week he feels his pain slightly improved. Kernig's and Brudzinski test performed in ER were negative. Patient reports that lately he has not been able to ambulate much because of right lower extremity pain/claudication. He has severe peripheral vascular disease and Dr. Dennis ordered CT angiogram which was not done yet. He denies any sick contacts. He lives with his who is doing well. His rapid COVID-19 test was negative. He does report some lightheadedness whenever he gets up and walks. He has been having trouble with urination and previously was on finasteride which was discontinued because it did not do any good. In emergency department Harris catheter was placed there is very minimal urinary return after he was given IV fluids. CT scan showed mild bilateral perinephric stranding which was concerning for pyelonephritis. There was also a concern for left lower lobe pneumonia. Patient met sepsis criteria. Review of Systems Const: Reports: fever(s); Denies: chills Eyes: Denies: change in vision ENMT: Denies: throat pain or change in hearing Card: Reports: lightheadedness; Denies: chest pain or edema Resp: Reports: dyspnea; Denies: productive cough (Except as mentioned.) GI: Reports: constipation; Denies: abdominal pain, nausea, vomiting, dysphagia, diarrhea, hematochezia or melena : Reports: difficulty urinating, urinary frequency, urinary urgency and difficulty starting urination; Denies: dysuria Musc: Denies: joint pain or joint swelling Skin/Breast: Denies: rash or erythema Neuro: Denies: headache(s) or weakness in extremities (Except may be very minimal weakness on the right side after he had stroke.) Psych: Denies: depression or suicidal ideation Endo: Denies: excessive sweating Brando/Lymph: Denies: easy bleeding or tender lymph nodes All/Imm: Denies: throat swelling Medications/Allergies Home Medications Medication Instructions Recorded Confirmed Last Taken Type albuterol sulfate 90 mcg/actuation 2 inh INHALATION Q6H PRN 11/08/19 08/31/20 11/29/19 History breath activated powder inhaler cetirizine 10 mg capsule 10 mg PO DAILY@1800 cap 11/08/19 08/31/20 08/30/20 History fluticasone propionate 50 2 inh INHALATION DAILY PRN each 11/08/19 08/31/20 Unknown History mcg/actuation blister powder for inhalation insulin glargine 100 unit/mL (3 50 unit SUBCUT DAILY@2100 ml 11/08/19 08/31/20 08/30/20 History mL) subcutaneous pen losartan 100 mg tablet 100 mg PO DAILY@0800 11/08/19 08/31/20 08/31/20 History montelukast 10 mg tablet 10 mg PO DAILY@0800 11/08/19 08/31/20 08/31/20 History pantoprazole 40 mg tablet,delayed 40 mg PO DAILY@0800 11/08/19 08/31/20 08/31/20 History release simvastatin 20 mg tablet 10 mg PO DAILY@1800 tab 11/08/19 08/31/20 08/30/20 History aspirin 325 mg PO DAILY@1800 11/30/19 08/31/20 08/30/20 History amlodipine 10 mg tablet 5 mg PO DAILY@1800 tab 08/28/20 08/31/20 08/30/20 History metoprolol tartrate 50 mg tablet 25 mg PO BID@0800,1800 tab 08/28/20 08/31/20 08/31/20 History Probiotic 1 tab PO DAILY@0800 08/31/20 08/31/20 08/31/20 History Vitamin D3 1 tab PO DAILY@0800 08/31/20 08/31/20 08/31/20 History cilostazol 50 mg PO BID@0800,1800 08/31/20 08/31/20 08/30/20 History docusate sodium [Colace] 100 mg PO BID@0800,1800 08/31/20 08/31/20 Unknown History fluticasone propionate [Flonase See Rx Instructions .ROUTE .COMPLEX 08/31/20 08/31/20 08/31/20 History Allergy Relief] insulin aspart U-100 [Novolog 10 unit SUBCUT DAILY@0800 08/31/20 08/31/20 08/31/20 History Flexpen U-100 Insulin] Allergies Allergy/AdvReac Type Severity Reaction Status Date / Time No Known Allergies Allergy Verified 12/13/19 15:06 PFSH Acute PFSH: Medical History Bilateral carotid artery stenosis COPD (chronic obstructive pulmonary disease) Diabetes GERD (gastroesophageal reflux disease) Hearing loss History of left common carotid artery stent placement Hypertension PAD (peripheral artery disease) Peripheral vascular disease Seizure disorder Sleep apnea Surgical History H/O carotid endarterectomy H/O esophagogastroduodenoscopy H/O knee surgery History of back surgery S/P appendectomy Status post colonoscopy with polypectomy Status post laparoscopic cholecystectomy (12/01/19) Family History Other CAD (coronary artery disease) Cancer Dementia Diabetes Hyperlipidemia Hypertension Pacemaker Stroke Denies family history of Chronic kidney disease (CKD) Anesthesia complication Bleeding disorder Family history of premature coronary artery disease Lung disease Social History Smoking and tobacco status: former smoker Quit status (tobacco): has quit using tobacco Alcohol intake: current Alcohol intake frequency: holidays/special occasions only Vitals/I&O/Wt Last Vital Signs Temp 100.5 F H 08/31/20 08:16 Pulse 107 H 08/31/20 16:49 Resp 18 08/31/20 16:49 BP 158/76 08/31/20 16:49 Pulse Ox 98 08/31/20 16:49 08/31/20 08/31/20 08/31/20 06:59 14:59 22:59 Intake Total 1050 / 1050 999 / 0 Balance 1050 / 1050 999 / 2049 Weight last 48 hrs Weight 86.183 kg Physical Exam Const: COMMON NORMALS: no acute distress, patient oriented x3 and alert HENMT: COMMON NORMALS: normocephalic and atraumatic HEAD & SCALP: normocephalic and atraumatic Eye: COMMON NORMALS: EOMs intact bilaterally, conjunctivae normal and no s cleral icterus CONJUNCTIVA: Yes conjunctivae normal Neck/C-Spine: COMMON NORMALS: no lymphadenopathy and no meningeal signs Lymph: LYMPHATIC: no lymphadenopathy noted Chest: COMMONS NORMALS: normal palpation of entire chest wall Resp: COMMON NORMALS: No use of accessory muscles and clear to auscultation bilaterally AUSCULTATION: clear to auscultation bilaterally Cardio: COMMON NORMALS: regular rate, regular rhythm and No murmurs present (Cardio) RATE: regular rate RHYTHM: regular rhythm OTHER: No lower extremity edema GI: COMMON NORMALS: Soft to palpation and non-tender PALPATION: Yes Soft to palpation RECTAL EXAM: Yes deferred : COMMON NORMALS: Yes no CVA tenderness BLADDER/KIDNEY EXAM: Yes no CVA tenderness Back/Pelvis: COMMON NORMALS: no CVA tenderness and thoracic and lumbar spine normal to inspection Extremity: COMMON NORMALS: normal to inspection and capillary refill normal Neuro: COMMON NORMALS: patient oriented x3 and no focal motor deficits SENSORIUM/ORIENTATION: Yes alert MENINGEAL SIGNS: Yes no meningeal signs Psych: COMMON NORMALS: mental status grossly normal, Normal thought process present and cooperative THOUGHT PROCESS: Normal thought process present Skin: COMMON NORMALS: no rashes or lesions noted GENERAL SKIN EXAM: no rashes or lesions noted Urinary Catheter Management^: Harris: Cath Placed During This Visit: yes Urinary Catheter Date of Insertion: 08/31/20 Urinary Catheter Time of Insertion: 15:40 Data : 08/31/20 08:56 08/31/20 08:56 Micro: Microbiology 08/31/20 09:04 Blood Culture - Preliminary Blood SPECIMEN COLLECTED 08/31/20 08:56 Blood Culture - Preliminary Blood SPECIMEN COLLECTED A&P Assessment and plan (1) Acute pyelonephritis: Status: Acute (2) Community acquired pneumonia: Status: Acute (3) Sepsis: Status: Acute (4) Dehydration with hyponatremia: Status: Acute (5) Diabetes mellitus type 2 in nonobese: Status: Acute (6) Peripheral vascular disease: Status: Acute (7) Benign prostatic hyperplasia: Status: Acute (8) COPD (chronic obstructive pulmonary disease): Not in exacerbation. Status: Acute Additional A&P Information PLAN: We will start patient on ceftriaxone and Levaquin and closely monitor. Gentle IV hydration with close monitoring of respiratory status. We will obtain echocardiogram to evaluate wall motion and ejection fraction. We have discussed regarding possibility of meningitis and although at this point it felt unlikely as patient has been having pain for the last 1 week and it is clinically getting better but meningitis cannot be completely ruled out. We have decided to consider lumbar puncture tomorrow if his neck/shoulder pain is not improving. If blood pressure permits we will start patient on Flomax and request outpatient follow-up with Dr. Phan. We will keep Harris catheter for now in. Awaiting culture results. Attestations Medical Necessity Statement*: Patient with sepsis requires close inpatient monitoring and treatment. I expect patient will require more than 2 midnights. 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
[2020-08-31] MEDS: lactated ringers 1,000 ML 50 ML IV (19:32)
[2020-08-31] MEDS: enoxaparin 40 mg/0.4 mL Syringe SUBCUT (19:32)
[2020-08-31] MEDS: levofloxacin-dextrose 5 % 750 MG/150 ML PREMIX 100 MG IV (19:32)
[2020-08-31 21:05] LABS: Glucose Urine UA 2+ (Normal); Ketones Urine 1+ (Negative); Protein Urine 1+ (Negative); Urine Appearance SL Hazy (CLEAR); Urine Color Yellow (Yellow); pH Urine 6.5 (5-7)
[2020-08-31 21:06] LABS: Bilirubin Urine Neg (Negative); Blood Urine 2+ (Negative); Leukocyte Esterase Urine Trace (Negative); Nitrate Urine Negative (Negative); Urobilinogen Urine 1 mg/dL (Negative)
[2020-08-31 21:26] LABS: Glucose Point of Care 262 mg/dL (70-110)
[2020-08-31 21:41] LABS: Add Urine Microscopic? YES
[2020-09-01] VITALS (8 sets, daily range): BP systolic 141–156; BP diastolic 62–71; PULSE 94–117; RESP 16–22; TEMP 36.5–37.1; O2SAT 94–96
[2020-09-01 06:22] LABS: Basophils % 0.1 %; Hematocrit 32.3 % (42.0-52.0); Lymphocytes # 0.6 10^3/uL (0.8-4.8); Lymphocytes % 4.9 %; Mean Corpuscular HGB Conc 34.1 g/dL (30.0-36.0); Mean Corpuscular Hemoglobin 31.3 pg (28.0-34.0); Mean Corpuscular Volume 91.8 fL (80-94); Mean Platelet Volume 10.4 fL (7.4-10.4); Monocytes # 0.6 10^3/uL (0.2-0.9); Monocytes % 5.1 %; Neutrophils # 10.52 10^3/uL (1.8-7.7); Neutrophils % 89.5 %; Nucleated Red Blood Cells % 0 %; Platelet Count 267 10^3/cmm (130-400); Red Blood Count 3.52 10^6/uL (4.1-5.3); Red Cell Distribution Width 12.7 % (12.1-15.1); White Blood Count 11.8 10^3/uL (4.0-10.0)
[2020-09-01 06:45] LABS: Estmated Average Glucose 157; Hemoglobin A1C 7.1 % (4.0-6.0)
[2020-09-01 06:51] LABS: Glucose Point of Care 353 mg/dL (70-110)
[2020-09-01 06:52] LABS: NT Pro B Type Natriuretic Pept 1414 pg/mL (0-450); Procalcitonin 0.26 ng/mL (0-0.5)
[2020-09-01 07:09] LABS: Alanine Aminotransferase 14 U/L (0-41); Albumin Level 3.1 g/dL (3.5-5.2); Alkaline Phosphatase 72 IU/L (40-130); Anion Gap 15.7 (5-19); Aspartate Amino Transferase 15 U/L (0-40); Blood Urea Nitrogen 21 mg/dL (8-23); Carbon Dioxide 18 mmol/L (22-29); Chloride 94 mmol/L (98-107); Globulin 3.5 g/dL (1.3-4.6); Glucose 353 mg/dL (65-115); Magnesium 1.9 mg/dL (1.7-2.3); Osmolality Calculated 273 mOsm/kg (285-295); Phosphorus 3.4 mg/dL (2.5-4.5); Potassium 4.7 mmol/L (3.5-5.1); Sodium 123 mmol/L (136-145); Total Bilirubin 0.6 mg/dL (0.15-1.2); Total Protein 6.6 g/dL (6.6-8.7)
[2020-09-01] MEDS: pantoprazole DR 40 mg Tablet PO (08:34)
--- NOTE | 2020-09-01 10:47 | PC.OT ---
OT EVALUATION ORDERS RECEIVED. OT SCREEN COMPLETED. PATIENT DEMONSTRATED NO DEFICITS IN ADL. NO FURTHER SKILLED OT REQUIRED AT THIS TIME.
--- NOTE | 2020-09-01 10:54 | P.PN_ITS ---
Subjective Subjective: Interval history: Patient reports that he is doing much better this morning but did have 2 episodes of diarrhea since 4 AM this morning. His neck and shoulder pain much improved and only has residual discomfort whenever he moves his head to the right. He denies chest pain but does report some shortness of breath which overall better. Reports that he has some residual c ough which is dry now. Vitals/I&O/Wt Last Vital Signs Temp 98.4 F 09/01/20 07:25 Pulse 94 09/01/20 07:25 Resp 18 09/01/20 07:25 BP 152/69 09/01/20 07:25 Pulse Ox 95 09/01/20 07:25 08/31/20 09/01/20 09/01/20 22:59 06:59 14:59 Intake Total 999 / 0 150 / 2200 240 / 240 Output Total 600 / 600 Balance 999 / 2049 -450 / 1600 240 / 240 Weight last 48 hrs Weight 86.183 kg Physical Exam Narrative: EXAM NARRATIVE: Minimal right basilar Rales. Heart is regular. Lower extremities no edema. Abdomen is soft and nontender with positive bowel sounds. Urinary Catheter Management^: Harris: Cath Placed During This Visit: yes Urinary Catheter Date of Insertion: 08/31/20 Urinary Catheter Time of Insertion: 15:40 Data : 09/01/20 06:06 09/01/20 06:06 Micro: Microbiology 08/31/20 09:04 Blood Culture - Preliminary Blood NEGATIVE TO DATE 08/31/20 08:56 Blood Culture - Preliminary Blood NEGATIVE TO DATE A&P Assessment and plan (1) Acute pyelonephritis: Status: Acute (2) Community acquired pneumonia: Status: Acute (3) Sepsis: Status: Acute (4) Dehydration with hyponatremia: Status: Acute (5) Diabetes mellitus type 2 in nonobese: Status: Acute (6) Peripheral vascular disease: Status: Acute (7) Benign prostatic hyperplasia: Status: Acute (8) COPD (chronic obstructive pulmonary disease): Not in exacerbation. Status: Acute (9) Diarrhea: Status: Acute Additional A&P Information PLAN: Discontinue Levaquin and continue ceftriaxone for now. Obtain stool studies if patient continues to have diarrhea. Awaiting echocardiogram. Continue with physical therapy. We will start patient on Flomax and monitor blood pressure. Start patient on small dose aspirin and continue PPI. Attestations Medical Necessity Statement*: Patient with significant infectious process and now with diarrhea requires close inpatient monitoring and treatment. 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
[2020-09-01 11:31] LABS: Glucose Point of Care 417 mg/dL (70-110)
[2020-09-01] MEDS: tamsulosin 0.4 mg Capsule PO (13:13)
[2020-09-01] MEDS: cefTRIAXone 2,000 MG in sodium chloride 0.9% (plus) 50 ML 100 MG IV (15:41)
[2020-09-01 16:34] LABS: Coronavirus Test Green County Not Detected
[2020-09-01 17:39] LABS: Glucose Point of Care 386 mg/dL (70-110)
[2020-09-01] MEDS: metoprolol tartrate 25 mg Tablet PO (17:39)
[2020-09-01] MEDS: atorvastatin 40 mg Tablet 20 MG PO (17:39)
[2020-09-01] MEDS: lactated ringers 1,000 ML 50 ML IV (17:50)
[2020-09-01] MEDS: enoxaparin 40 mg/0.4 mL Syringe SUBCUT (18:11)
--- NOTE | 2020-09-01 18:32 | USCV_ITS ---
Fidel Holliday Age: 75 Gender: M : 1945 Exam Date: 09/01/2020 06:18 Ordering Phys: Sudeep Bhatti MD Technologist: Gina Munoz [place] [facility] [place]: DYSPNEA BP: 146 / 62 HR: 115 Rhythm: Sinus Technical Quality: Adequate MEASUREMENTS (Male / Female) Normal Values 2D ECHO LV Diastolic Diameter PLAX 4.0 cm 4.2 - 5.9 / 3.9 - 5.3 cm LV Systolic Diameter PLAX 3.1 cm LV Chamber Size 2.6 cm IVS Diastolic Thickness 1.0 cm 0.6 - 1.0 / 0.6 - 0.9 cm IVS Systolic Thickness 1.5 cm LVPW Diastolic Thickness 1.4 cm 0.6 - 1.0 / 0.6 - 0.9 cm LVPW Systolic Thickness 1.5 cm RV Chamber Size 3.3 cm LVOT Diameter 2.1 cm LV Ejection Fraction 2D Teich 43.7 % LV Ejection Fraction MOD 2C 54.9 % LV Ejection Fraction 2C AL 54.3 % LA Diameter 3.2 cm LA Width 3.4 cm LA Height 3.4 cm RA Width 2.9 cm RA Height 3.7 cm Aorta at Sinotubular Diameter 3.2 cm M-MODE LV Diastolic Diameter MM 5.1 cm 4.2 - 5.9 / 3.9 - 5.3 cm LV Systolic Diameter MM 2.9 cm LV Ejection Fraction MM Teich 75.3 % IVS Diastolic Thickness MM 1.1 cm 0.6 - 1.0 / 0.6 - 0.9 cm IVS Systolic Thickness MM 1.5 cm LVPW Diastolic Thickness MM 1.2 cm 0.6 - 1.0 / 0.6 - 0.9 cm LVPW Systolic Thickness MM 1.5 cm Aortic Annulus Diameter 3.3 cm LA Ao Ratio MM 1.1 MV E Point Septal Separation 0.4 cm DOPPLER AV Peak Velocity 119.0 cm/s LVOT Peak Velocity 93.0 cm/s AV Area Cont Eq vti 3.2 cm squared AV Area Cont Eq pk 2.7 cm squared MV Area PHT 5.4 cm squared MV E' Velocity 71.5 cm/s Mitral E to MV E' Ratio 13.9 Mitral E to LV E' Lateral Ratio 15.7 Mitral E to LV E' Septal Ratio 12.6 TR Peak Velocity 104.1 cm/s TR Peak Gradient 4.3 mmHg TR Mean Velocity 122.8 cm/s TR Mean Gradient 6.5 mmHg TR Velocity Time Integral 36.5 cm TV Peak E Velocity 96.0 cm/s Right Atrial Pressure 3.0 mmHg Pulmonary Artery Systolic Pressu 7.3 mmHg PV Peak Velocity 116.0 cm/s RV Acceleration Time 0.1 s RV Ejection Time 0.3 s RV AcT/ET 0.4 FINDINGS Left Ventricle Normal left ventricular cavity size. Normal left ventricular systolic function. No regional wall motion abnormalities. Left ventricular ejection fraction is estimated at 65 %. Right Ventricle The right ventricle is normal in size and function. Right Atrium The right atrium is normal in size. Left Atrium The left atrium is normal in size. Mitral Valve Mildly thickened mitral valve. No mitral valve stenosis. Trace mitral valve regurgitation. Aortic Valve Severe aortic valve calcification. No aortic valve stenosis. No aortic valve regurgitation. Tricuspid Valve Structurally normal tricuspid valve without significant stenosis or regurgitation. Pulmonary artery systolic pressure is normal. Pulmonic Valve Structurally normal pulmonic valve without significant stenosis. There is no pulmonic regurgitation. Pericardium Normal pericardium without effusion. Aorta Normal ascending aorta dimension. CONCLUSIONS 1-Normal left ventricular cavity size. Normal left ventricular systolic function. No regional wall motion abnormalities. Left ventricular ejection fraction is estimated at 65 %. 2-Severe aortic valve calcification. No aortic valve stenosis. No aortic valve regurgitation. 3-There is no pericardial effusion. 4-Pulmonary artery systolic pressure is within normal limits. 5-Right atrial pressure is around 5 mm of mercury. 6-There are no prior echocardiogram studies to compare. Kishan Johnson MD (Electronically Signed) Final Date: 01 September 2020 19:26 S
[2020-09-01 20:31] LABS: Glucose Point of Care 394 mg/dL (70-110)
[2020-09-02] VITALS (7 sets, daily range): BP systolic 122–172; BP diastolic 68–82; PULSE 87–120; RESP 18–24; TEMP 36.3–36.8; O2SAT 93–98
[2020-09-02 06:22] LABS: Alanine Aminotransferase 24 U/L (0-41); Albumin Level 3.2 g/dL (3.5-5.2); Alkaline Phosphatase 79 IU/L (40-130); Aspartate Amino Transferase 27 U/L (0-40); Blood Urea Nitrogen 28 mg/dL (8-23); Carbon Dioxide 20 mmol/L (22-29); Chloride 93 mmol/L (98-107); Creatinine Clr Calc Pharmacy 76.0989; Globulin 3.6 g/dL (1.3-4.6); Glucose 457 mg/dL (65-115); Magnesium 2.1 mg/dL (1.7-2.3); Osmolality Calculated 287 mOsm/kg (285-295); Phosphorus 2.8 mg/dL (2.5-4.5); Sodium 126 mmol/L (136-145); Total Bilirubin 0.5 mg/dL (0.15-1.2); Total Protein 6.8 g/dL (6.6-8.7)
[2020-09-02 06:54] LABS: Glucose Point of Care 399 mg/dL (70-110)
[2020-09-02 07:37] LABS: Glucose Point of Care 451 mg/dL (70-110)
[2020-09-02] MEDS: pantoprazole DR 40 mg Tablet PO (08:14)
[2020-09-02] MEDS: aspirin 81 mg EC Tablet PO (08:14)
[2020-09-02] MEDS: tamsulosin 0.4 mg Capsule PO (08:14)
[2020-09-02] MEDS: cholecalciferol (vitamin D3) 1,000 unit Tablet 1000 UNIT PO (08:14)
[2020-09-02] MEDS: lactobacillus 1 Tablet 1 TAB PO (08:14)
[2020-09-02] MEDS: metoprolol tartrate 25 mg Tablet PO ×2 (09:32→16:59)
[2020-09-02 11:38] LABS: Glucose Point of Care 391 mg/dL (70-110)
[2020-09-02] MEDS: cefTRIAXone 2,000 MG in sodium chloride 0.9% (plus) 50 ML 100 MG IV (12:56)
--- NOTE | 2020-09-02 15:56 | PM.PN ---
Subjective Subjective: Interval history: Patient reports feeling much better. Reports that his oral intake improved. He is neck pain is gone. Patient denies significant heartburn. Reports that his physician switched patient to full dose aspirin from Plavix for stroke prevention. Apparently patient had stroke while on baby aspirin therefore it felt that full dose aspirin would be beneficial. Reports that he has Jell-O like bowel movements but denies watery diarrhea. Vitals/I&O/Wt Last Vital Signs Temp 98.2 F 09/02/20 15:32 Pulse 94 09/02/20 15:32 Resp 18 09/02/20 15:32 BP 136/68 09/02/20 15:32 Pulse Ox 96 09/02/20 15:32 09/02/20 09/02/20 09/02/20 06:59 14:59 22:59 Intake Total 2250 / 2250 Output Total 1700 / 3375 Balance -1700 / -1485 2250 / 2250 Physical Exam Narrative: EXAM NARRATIVE: Lungs are clear heart is regular. Lower extremities no edema. Abdomen is soft and nontender with positive bowel sounds. Urinary Catheter Management^: Harris: Cath Placed During This Visit: yes, but has since been removed by the nurse Reason for Continuing Indwelling Catheter: Decision to DC Catheter Urinary Catheter Date of Insertion: 08/31/20 Urinary Catheter Time of Insertion: 15:40 Date Urinary Catheter Removed: 09/02/20 Time Urinary Catheter Discontinued: 14:32 Data : 09/01/20 06:06 09/02/20 05:38 Micro: Microbiology 08/31/20 20:30 Urine Culture - Preliminary Urine Catheterized 09/01/20 14:52 C.difficile Toxin B Gene (PCR) - Final Stool Routine Collection Occult Blood (FIT) - Final A&P Assessment and plan (1) Acute pyelonephritis: Status: Acute (2) Community acquired pneumonia: Status: Acute (3) Sepsis: Status: Acute (4) Dehydration with hyponatremia: Status: Acute (5) Diabetes mellitus type 2 in nonobese: Status: Acute (6) Peripheral vascular disease: Status: Acute (7) Benign prostatic hyperplasia: Status: Acute (8) COPD (chronic obstructive pulmonary disease): Not in exacerbation. Status: Acute (9) Diarrhea: Status: Acute Additional A&P Information PLAN: We will remove Harris catheter make sure patient can urinate. We will get physical therapy and get patient up and walking. Continue antibiotic with plan to transition to Omnicef for several more days. If continues to improve we will likely be able to dismiss patient home tomorrow. Attestations Medical Necessity Statement*: Patient with pneumonia and pyelonephritis requires close inpatient monitoring and treatment until deemed safe for discharge. Time Spent in Patient Care: 16 - 35 minutes Coding Level of Care Code Acute Lan/Wan Engineer for [facility] Fwd Diagnoses Acute pyelonephritis N10 Community acquired pneumonia J18.9 Sepsis A41.9 Dehydration with hyponatremia E86.0; E87.1 Diabetes mellitus type 2 in nonobese E11.9 Peripheral vascular disease I73.9 Benign prostatic hyperplasia N40.0 COPD (chronic obstructive pulmonary disease) J44.9 Diarrhea R19.7
[2020-09-02] MEDS: atorvastatin 40 mg Tablet 20 MG PO (16:58)
[2020-09-02] MEDS: enoxaparin 40 mg/0.4 mL Syringe SUBCUT (16:59)
[2020-09-02 17:10] LABS: Glucose Point of Care 372 mg/dL (70-110)
[2020-09-02 20:42] LABS: Glucose Point of Care 339 mg/dL (70-110)
[2020-09-02] MEDS: insulin glargine 100 units/1 mL 50 UNIT SUBCUT (21:47)
[2020-09-03] VITALS: BP 160/74; PULSE 94; RESP 20; TEMP 36.8
[2020-09-03 00:27] VITALS: BP 160/74; O2SAT 94
[2020-09-03 04:00] VITALS: BP 163/82; PULSE 91; RESP 19; TEMP 36.7; O2SAT 94
[2020-09-03 04:57] LABS: Basophils % 0.2 %; Eosinophils # 0.7 10^3/uL (0.0-0.8); Eosinophils % 6.8 %; Hematocrit 33.8 % (42.0-52.0); Hemoglobin 11.4 g/dL (11.7-16.6); Lymphocytes # 1.9 10^3/uL (0.8-4.8); Lymphocytes % 19.2 %; Mean Corpuscular HGB Conc 33.7 g/dL (30.0-36.0); Mean Corpuscular Hemoglobin 31.2 pg (28.0-34.0); Mean Corpuscular Volume 92.6 fL (80-94); Mean Platelet Volume 10.1 fL (7.4-10.4); Monocytes # 1.2 10^3/uL (0.2-0.9); Monocytes % 12.3 %; Neutrophils # 6.15 10^3/uL (1.8-7.7); Neutrophils % 61.1 %; Nucleated Red Blood Cells % 0 %; Platelet Count 324 10^3/cmm (130-400); Red Blood Count 3.65 10^6/uL (4.1-5.3); Red Cell Distribution Width 12.8 % (12.1-15.1); White Blood Count 10.1 10^3/uL (4.0-10.0)
[2020-09-03 05:27] LABS: Alanine Aminotransferase 22 U/L (0-41); Alkaline Phosphatase 61 IU/L (40-130); Anion Gap 13.5 (5-19); Aspartate Amino Transferase 21 U/L (0-40); Blood Urea Nitrogen 21 mg/dL (8-23); Calcium 8.3 mg/dL (8.5-10.5); Carbon Dioxide 24 mmol/L (22-29); Chloride 93 mmol/L (98-107); Globulin 3.3 g/dL (1.3-4.6); Glucose 291 mg/dL (65-115); Magnesium 1.9 mg/dL (1.7-2.3); NT Pro B Type Natriuretic Pept 884 pg/mL (0-450); Osmolality Calculated 276 mOsm/kg (285-295); Phosphorus 2.2 mg/dL (2.5-4.5); Potassium 4.5 mmol/L (3.5-5.1); Sodium 126 mmol/L (136-145); Total Bilirubin 0.3 mg/dL (0.15-1.2); Total Protein 6.3 g/dL (6.6-8.7)
[2020-09-03 06:31] LABS: Glucose Point of Care 306 mg/dL (70-110)
[2020-09-03 07:50] VITALS: BP 166/80; PULSE 87; RESP 18; TEMP 36.8; O2SAT 95
[2020-09-03] MEDS: aspirin 81 mg EC Tablet PO (08:20)
[2020-09-03] MEDS: cholecalciferol (vitamin D3) 1,000 unit Tablet 1000 UNIT PO (08:20)
[2020-09-03] MEDS: pantoprazole DR 40 mg Tablet PO (08:20)
[2020-09-03] MEDS: tamsulosin 0.4 mg Capsule PO (08:20)
[2020-09-03] MEDS: lactobacillus 1 Tablet 1 TAB PO (08:20)
[2020-09-03] MEDS: metoprolol tartrate 25 mg Tablet PO (08:28)
--- NOTE | 2020-09-03 09:18 | DCPLANNER ---
Pg 2 of IM updated and reviewed with pt. No questions. Copy provided.
--- NOTE | 2020-09-03 09:20 | PM.DCS ---
Discharge Providers Date of Admission: 08/31/20 15:50 Date of Discharge: September 03, 2020 Attending Provider at Admission: Sudeep Bhatti MD Attending Provider at Discharge: Sudeep Bhatti MD Primary Care Provider: Pete Pope DO Diagnoses at Discharge Discharge Diagnosis (1) Acute pyelonephritis: Status: Acute (2) Community acquired pneumonia: Status: Acute (3) Sepsis: Status: Acute (4) Dehydration with hyponatremia: Status: Acute (5) Diabetes mellitus type 2 in nonobese: Status: Acute (6) Peripheral vascular disease: Status: Acute (7) Benign prostatic hyperplasia: Status: Acute (8) COPD (chronic obstructive pulmonary disease): Status: Acute (9) Diarrhea: Status: Acute Reason for Visit Reason for Visit: DIABETIC, FLUNCUATING BLOOD SUGAR, SOB Hospital Course Hospital Course Patient presented septic and dehydrated. He was found to have evidence of community-acquired pneumonia and acute pyelonephritis. He has been complaining of neck and shoulder pain which felt to be musculoskeletal in origin. He was started on antibiotics and gradually improved and this morning reports feeling much better and wants to go home. This morning patient denies shortness of breath or chest pain. Denies any headache. Ambulates without difficulty. Harris catheter was removed and patient urinates well. Because of concern for acute pyelonephritis patient was started on Flomax and therefore amlodipine will be discontinued at this point. Patient was told to keep blood pressure and heart rate log to present to PCP for further medication adjustment. I will continue Omnicef for 5 more days. Patient's diarrhea completely resolved and he had normal formed stool this morning without evidence of melena or hematochezia. Patient is scheduled to see Dr. Johnson on outpatient basis for further evaluation and treatment of his peripheral vascular disease. I will continue patient's full dose aspirin as was recommended by his physician and add small dose of omeprazole for GI protection. Physical Exam Narrative: EXAM NARRATIVE: Exam this morning shows clear lungs and regular heart. No lower extremity edema. Abdomen is soft and nontender with positive bowel sounds. Patient has no Harris catheter. Urinary Catheter Management^: Harris: Cath Placed During This Visit: yes, but has since been removed by the nurse Reason for Continuing Indwelling Catheter: Decision to DC Catheter Urinary Catheter Date of Insertion: 08/31/20 Urinary Catheter Time of Insertion: 15:40 Date Urinary Catheter Removed: 09/02/20 Time Urinary Catheter Discontinued: 14:32 Discharge Data Data Completed and Pending: Completed Studies During Hospitalization Category Date Time Status CT abdomen pelvis w con* [id number] Stat Cat Scan 08/31/20 13:[address] angio chest PE protcl [id number] Stat Cat Scan 08/31/20 11:53 Completed XR chest 1V osito ble [id number] Stat Exams 08/31/20 08:33 Completed CV echo complete* [id number] Routine Ultrasound 09/01/20 18:32 Completed Pending at discharge Category Date Time Status Blood Culture Sta t Lab 08/31/20 09:04 Results Complete Blood Co unt w/Auto AM LABS Lab 09/04/20 04:00 Ordered Complete Blood Co unt w/Auto AM LABS Lab 09/05/20 04:00 Ordered Enteric Bacterial Panel by PCR Rout ine Lab 09/02/20 07:13 Uncollected Immunochemical Fe kate OCB Routine Lab 09/02/20 07:13 Uncollected Urine Culture Sta t Lab 08/31/20 20:30 Results Labs from last 24 hours 09/03/20 09/03/20 09/03/20 06:15 04:44 04:44 WBC 10.1 H RBC 3.65 L Hgb 11.4 L Hct 33.8 L MCV 92.6 MCH 31.2 MCHC 33.7 RDW 12.8 Plt Count 324 MPV 10.1 Neut % (Auto) 61.1 Lymph % (Auto) 19.2 [place] % (Auto) 12.3 Eos % (Auto) 6.8 Baso % (Auto) 0.2 Neut # (Auto) 6.15 Lymph # (Auto) 1.9 [place] # (Auto) 1.2 H Eos # (Auto) 0.7 Baso # (Auto) 0.0 Nucleated RBC % (a uto) 0 Nucleated RBCs # 0.0 Sodium 126 L Potassium 4.5 Chloride 93 L Carbon Dioxide 24 Anion Gap 13.5 BUN 21 Creatinine 0.7 GFR Calculation Not Reportable Glucose 291 H POC Glucose 306 H Calculated Osmolal ity 276 L Calcium 8.3 L Phosphorus 2.2 L Magnesium 1.9 Total Bilirubin 0.3 AST 21 ALT 22 Alkaline Phosphata se 61 NT-Pro-B Natriuret Pep 884 H Total Protein 6.3 L Albumin 3.0 L Globulin 3.3 02/01/1509/02/20 09/02/20 20:33 17:02 11:20 WBC RBC Hgb Hct MCV MCH MCHC RDW Plt Count MPV Neut % (Auto) Lymph % (Auto) [place] % (Auto) Eos % (Auto) Baso % (Auto) Neut # (Auto) Lymph # (Auto) [place] # (Auto) Eos # (Auto) Baso # (Auto) Nucleated RBC % (a uto) Nucleated RBCs # Sodium Potassium Chloride Carbon Dioxide Anion Gap BUN Creatinine GFR Calculation Glucose POC Glucose 339 H 372 H 391 H Calculated Osmolal ity Calcium Phosphorus Magnesium Total Bilirubin AST ALT Alkaline Phosphata se NT-Pro-B Natriuret Pep Total Protein Albumin Globulin Vitals: Last Vital Signs Temp 98.3 F 09/03/20 07:50 Pulse 87 09/03/20 07:50 Resp 18 09/03/20 07:50 BP 166/80 09/03/20 07:50 Pulse Ox 95 09/03/20 07:50 Discharge Plan Discharge Patient Disposition: Home Condition: Stable Prescriptions: New tamsulosin 0.4 mg Capsule 0.4 mg PO DAILY Qty: 30 RF: 0 cefdinir 300 mg capsule 300 mg PO BID 5 Days Qty: 10 RF: 0 omeprazole 10 mg capsule,delayed release(DR/EC) 10 mg PO DAILY Qty: 30 RF: 0 Continued albuterol sulfate 90 mcg/actuation aerosol powdr breath activated 2 inh INHALATION Q6H PRN (Reason: breathing) RF: 0 fluticasone propionate 50 mcg/actuation blister with device 2 inh INHALATION DAILY PRN (Reason: Dry Nasal Passages) RF: 0 cetirizine 10 mg capsule 10 mg PO DAILY@1800 RF: 0 insulin glargine 100 unit/mL (3 mL) insulin pen 50 unit SUBCUT DAILY@2100 RF: 0 losartan 100 mg tablet 100 mg PO DAILY@0800 RF: 0 montelukast [Singulair] 10 mg tablet 10 mg PO DAILY@0800 RF: 0 pantoprazole 40 mg tablet,delayed release (DR/EC) 40 mg PO DAILY@0800 RF: 0 simvastatin 20 mg tablet 10 mg PO DAILY@1800 RF: 0 metoprolol tartrate 50 mg tablet 25 mg PO BID@0800,1800 RF: 0 aspirin 325 mg 325 mg PO DAILY@1800 RF: 0 Hold Instructions: Resume on 12/04/19. Flonase Allergy Relief 50 mcg/actuation [place],Suspension See Rx Instructions .ROUTE .COMPLEX RF: 0 Novolog Flexpen U-100 Insulin 100 unit/mL (3 mL) insulin pen 10 unit SUBCUT DAILY@0800 RF: 0 Probiotic 1 tab PO DAILY@0800 RF: 0 Vitamin D3 1 tab PO DAILY@0800 RF: 0 cilostazol 50 mg tablet 50 mg PO BID@0800,1800 RF: 0 Colace 100 mg capsule 100 mg PO BID@0800,1800 RF: 0 Discontinued amlodipine 10 mg tablet 5 mg PO DAILY@1800 RF: 0 Discharge Orders: Discharge Order (Routine); Ordered 09/03/20 Ordered By: Sudeep Bhatti Other Ambulatory Orders: DME: Pritesh (Order) Location: None Selected Ordered By: Sudeep Bhatti Referrals: Pete Pope, [Primary Care Provider] - 4-7 days (Please call Friday and make an appointment with your Primary care Dr Pope at [phone] for 4 to 7 days.) Discharge Diet: Usual diet Discharge Activity: Increase activity as tolerated Activity Restrictions/Additional Instructions: Please call your doctor or present to emergency department if your condition worsens or you develop diarrhea, lightheadedness, fatigue or see blood in your stool or black stool. Please keep blood sugar, blood pressure and heart rate log 3 times daily to present to primary care physician next visit for medication adjustment. Please note that amlodipine is currently discontinued because of initiation of Flomax and your blood pressure medication may need to be further adjusted. Discharge Attestations Time Spent in Discharge Care*: greater than 30 min Quality Metrics Clinical Quality Measures During this hospital stay, did patient experience: None Coding Level of Care Code Acute Filteration Operator for g Fwd Diagnoses Acute pyelonephritis N10 Community acquired pneumonia J18.9 Sepsis A41.9 Dehydration with hyponatremia E86.0; E87.1 Diabetes mellitus type 2 in nonobese E11.9 Peripheral vascular disease I73.9 Benign prostatic hyperplasia N40.0 COPD (chronic obstructive pulmonary disease) J44.9 Diarrhea R19.7
[2020-09-03 10:06] VITALS: BP 166/80; PULSE 87; RESP 18; TEMP 36.8; O2SAT 95
--- NOTE | 2020-09-03 10:19 | PC.NURSE ---
DISCHARGE INSTRUCTIONS DISCHARGE INSTRUCTIONS GIVEN TO PATIENT PER THIS NURSE - PT VERBALIZES UNDERSTANDING - TAKEN TO PRIVATE CARE VIA W/C WITH STAFF AT SIDE
--- NOTE | 2020-09-04 16:16 | PC.RESP ---
Pulmonary Rehab information sent to patient.
== END 2020-09-03 10:21 | disposition home or self-care (01) | DRG 871 ==
LOC: ER 08:31 → MEDSURG 16:19
PROVIDERS: Physician Assistant; Admitting Provider Internal Medicine; Emergency Provider Family Medicine; PCP Emergency Medicine Emergency Medical Services; Visit Provider Internal Medicine
DX: A41.9 Sepsis, unspecified organism (principal); J18.9 Pneumonia, unspecified organism; N10 Acute pyelonephritis; J44.0 Chronic obstructive pulmonary disease with (acute) lower respiratory infection; E87.1 Hypo-osmolality and hyponatremia; N40.1 Benign prostatic hyperplasia with lower urinary tract symptoms; R35.0 Frequency of micturition; R39.12 Poor urinary stream; K59.00 Constipation, unspecified; I65.23 Occlusion and stenosis of bilateral carotid arteries; Z95.820 Peripheral vascular angioplasty status with implants and grafts; E11.51 Type 2 diabetes mellitus with diabetic peripheral angiopathy without gangrene; K21.9 Gastro-esophageal reflux disease without esophagitis; I10 Essential (primary) hypertension; G40.909 Epilepsy, unspecified, not intractable, without status epilepticus; G47.30 Sleep apnea, unspecified; Z87.891 Personal history of nicotine dependence; E86.0 Dehydration; R19.7 Diarrhea, unspecified; M25.519 Pain in unspecified shoulder; M54.2 Cervicalgia; Z79.4 Long term (current) use of insulin
CPT/HCPCS: 12345; 36415; 36416; 51702; 71045; 71275; 74177; 80053; 81001; 82274; 82962; 83036; 83605; 83735; 83880; 84100; 84145; 84484; 85025; 85378; 87040; 87086; 87426; 87493; 87506; 87635; 93005; 93306; 96372; 97161; 99283; J0696; J1100; J1650; J1815 ×2; J1956; J7030; Q9967

== ENCOUNTER 2020-09-18 11:05 | Outpatient (CLI) | payer OTHER, SELFPAY ==
--- NOTE | 2020-09-18 11:00 | CT_ITS ---
WS: [id number] CT ANGIOGRAPHY OF THE ABDOMINAL AORTA WITH RUNOFF TO THE ANKLES HISTORY: I73.9 - Peripheral vascular disease, unspecified TECHNIQUE: Arterial injection is performed during imaging to evaluate the aorta and runoff vessels to the ankles. MIP and volume rendering imaging has also been performed. All images are reviewed. All C T scans at [facility] use at least one of these dose optimization techniques: automated ex posure control; mA and/or kV adjustment per patient size (includes targeted exams where dose is match ed to clinical indication); or iterative reconstruction. Contrast: Omnipaque 350; 95 mL IV. DLP: 1437.42 mGycm COMPARISON: 08/14/2020 Abdominal aorta: Moderate atherosclerotic plaque is nearly circumferential. Stenosis in the infrarena l aorta at 6 mm in diameter. No aneurysm. High-grade stenosis involving the origin of the celiac axis , greater than 70%. Intact origin of the SMA. Within the mid to distal SMA there is heavy calcificati on with areas of stenosis approaching and greater than 50%. Origin of the renal arteries are both pat ent. Greater atherosclerotic plaque on the LEFT. Normal enhancement of each kidney. RIGHT lower extremity arterial system: There is heavy calcified plaque throughout the RIGHT common il iac artery with a high-grade stenosis greater than 70% distally. Calcifications continue into the int ernal and external iliac arteries. Multifocal areas of [id number] stenosis through the external iliac and the femoral artery. There is significant atherosclerotic plaque with multifocal areas of s ignificant stenosis throughout the SFA. Reconstitution distally near Farnk's canal. Complete occlusi on involving distal Frank's canal. Very limited flow through the popliteal artery. Multifocal areas of high-grade stenosis and plaque. Calcified plaque throughout the posterior tibial and the peroneal artery. Small vessel runoff to the ankle. LEFT lower extremity just system: High-grade stenosis involving the LEFT common iliac artery at multi ple levels. Severe plaque and stenoses throughout a large portion of the external iliac artery. Mild stenosis in the external iliac artery. There is heavy calcified plaque in the femoral artery. Multifo kate areas of significant plaque in the SFA and deep profunda. Multiple areas of stenoses greater than 60% in the mid to distal SFA. SFA may be completely occluded as the plaque may be obscuring the enha ncing lumen. Multifocal areas of high-grade stenosis through Frank's canal and the popliteal artery. Small vessel runoff to the ankle. Peroneal artery is probably completely occluded. Calcification in the anterior tibial artery and the lumen may also be occluded. Visualized liver, spleen and pancreas are negative. Gallbladder is not identified. No adrenal mass. D iffuse mild constipation. No ascites or adenopathy. Mildly enlarged prostate gland. L4 anterolisthesis by 8 mm with bilateral L4 pars defects. CT/CT angio abd aorta runof [id number] IMPRESSION: 1. Multifocal areas of moderate to severe stenoses and occlusions bilaterally from the common iliac arteries to the popliteal arteries. 2. Bilateral high-grade stenoses involving the common iliac arteries, LEFT gre ater than RIGHT. 3. Multifocal areas of high-grade stenosis and occlusions involving the superf icial femoral arteries through Frank's canal and the popliteal arteries. 4. Small caliber arterial runoff to the ankles. Intermittent visualization of the tibial and peroneal arteries with calcification obscuring the lumen. 5. Distal SMA moderate atherosclerosis.
[2020-09-18] MEDS: iohexol 350 mg/mL 100 mL Btl IV (11:40)
== END 2020-09-18 11:06 | disposition home or self-care (01) ==
LOC: RADWPI 11:12
PROVIDERS: PCP Emergency Medicine Emergency Medical Services; Visit Provider Internal Medicine Cardiovascular Disease
DX: I73.9 Peripheral vascular disease, unspecified (principal); I70.8 Atherosclerosis of other arteries
CPT/HCPCS: 75635; Q9967

== ENCOUNTER 2020-10-11 08:29 | Outpatient (CLI) | payer OTHER, SELFPAY ==
[2020-10-11 08:57] LABS: Basophils # 0.1 10^3/uL (0.0-0.1); Eosinophils # 0.4 10^3/uL (0.0-0.8); Eosinophils % 5.4 %; Hematocrit 40.4 % (42.0-52.0); Hemoglobin 13.2 g/dL (11.7-16.6); Lymphocytes # 1.4 10^3/uL (0.8-4.8); Lymphocytes % 19.8 %; Mean Corpuscular HGB Conc 32.7 g/dL (30.0-36.0); Mean Corpuscular Hemoglobin 30.6 pg (28.0-34.0); Mean Corpuscular Volume 93.5 fL (80-94); Mean Platelet Volume 10.6 fL (7.4-10.4); Monocytes # 0.8 10^3/uL (0.2-0.9); Monocytes % 11.3 %; Neutrophils # 4.36 10^3/uL (1.8-7.7); Neutrophils % 62.2 %; Nucleated Red Blood Cells % 0 %; Platelet Count 272 10^3/cmm (130-400); Red Blood Count 4.32 10^6/uL (4.1-5.3); Red Cell Distribution Width 13.8 % (12.1-15.1)
[2020-10-11 09:14] LABS: Blood Urea Nitrogen 12 mg/dL (8-23); Calcium 9.2 mg/dL (8.5-10.5); Carbon Dioxide 27 mmol/L (22-29); Chloride 97 mmol/L (98-107); Glucose 117 mg/dL (65-115); Osmolality Calculated 279 mOsm/kg (285-295); Sodium 134 mmol/L (136-145)
== END 2020-10-11 08:30 | disposition home or self-care (01) ==
LOC: LAB 08:35
PROVIDERS: PCP Emergency Medicine Emergency Medical Services; Visit Provider Internal Medicine Cardiovascular Disease
DX: I73.9 Peripheral vascular disease, unspecified (principal)
CPT/HCPCS: 36415; 80048; 85025; 87635

== ENCOUNTER 2020-10-16 06:55 | Day surgery (SDC) | payer OTHER, MEDICARE, SELFPAY ==
[2020-10-13 12:54] VITALS: BMI 26.8
[2020-10-16] VITALS (40 sets, daily range): BP systolic 102–164; BP diastolic 45–91; PULSE 59–78; RESP 5–20; TEMP 36.6–36.9; O2SAT 83–100; BMI 26.8
--- NOTE | 2020-10-16 07:30 | XACV_ITS ---
Wt: 85 kg BSA: 2.06 m2 Any Known Allergies: No known allergies Gender: Male : 1945 Exam Type: Invasive Peripheral Vascular Procedure(s): Procedure Description: Peripheral Cath Diagnostic Procedure Procedure Description: Abdominal aortic angiography Procedure Description: Iliac arterial aortic angiography Procedure Description: Lower extremities' angiography Procedure Description: Peripheral vascular Intervention Procedure Description: PV Balloon Procedure Description: PV Atherectomy Exam Priority: Routine Lower Extremity Interventional Findings Left common femoral artery approach was used to engage and cross the lesion in the proximal to mid common femoral artery on the right side. We were able to cross with the help of seeker and Glidewire through right proximal superficial femoral artery and mid to distal superficial femoral artery and proximal popliteal artery into the tibioperoneal trunk. CSI atherectomy was performed after exchanging Glidewire with Viper wire in the proximal to distal SFA through the lesion in the proximal SFA and mid to distal SFA and popliteal lesion. It was also noted the proximal common iliac artery there was dampening of the pressure when we were able to cross through the proximal common iliac vessel with somewhat difficulty. Proximal common right iliac artery was treated with balloon angioplasty. Multiple balloon angioplasty of the proximal and distal SFA was performed please see inventory. Relatively good result in the proximal SFA was noted however excellent angiographic result in the mid to distal right SFA and the popliteal artery was noted. Good three-vessel runoff was noted below the right knee.. Conclusions Indication for peripheral angiogram: Lifestyle limiting claudicationAbdominal aortogram: Normal abdominal aortaRight renal artery has luminal irregularity left renal artery is not well visualizedRight common iliac artery appeared to have calcified moderate stenosis left common iliac artery does not have any significant stenosisRight and left external and internal iliac arteries has luminal irregularitiesRight proximal severely calcified common femoral artery has significant stenosis, left common femoral artery has luminal irregularityRight and left profundofemoral artery has luminal irregularityRight SFA in the mid to distal segment has moderate to severe long stenosis which is highly calcified.Right popliteal artery has proximal severe stenosisRight tibioperoneal trunk has luminal irregularity below the knee three-vessel runoff was noted it appeared to me that patient has proximal left posterior tibial artery occlusion which may constitute in the distal segment.Left SFA has mid to distal moderate stenosis with calcification. Left tibioperoneal trunk has luminal irregularity, below the knee artery was not able to be assessed due to insufficient injection.. Recommendations 1-Return to inpatient for close monitoring and routine cath care 2-Risk factor modification for secondary prevention 3-Statin and aspirin 81 mg life--long, if tolerated 4-Patient was pre-loaded with 300 mg of Plavix, continue Plavix 75mg p.o. daily for at least three months. We will assess at the end of one year again to continue if further or not 5-Continue optimal medical management, if patient continues to have problem in the right leg may will consider stenting of the proximal SFA on the right side. 6-Follow up with Dr. Johnson in four weeks and your primary care in 10 days. Hemodynamic Data Phase:Rest AO : 146.0 / 44.0 ( 80.0 ) @ 4:37:00 AM 106.0 / 46.0 ( 70.0 ) @ 4:55:00 AM 127.0 / 52.0 ( 81.0 ) @ 5:51:00 AM 97.0 / 47.0 ( 69.0 ) @ 5:58:00 AM Access Site Site: Left Femoral artery Sheath Size: 6 Fr Hemost... Method: Suture Hemost... Success: Successful Procedure Details Findings Procedure Consent Obtained. Pre-Procedure Time Out. Identified patient by full name and date of as verbalized by the patient/guarantor. Does the consent match the physician's order: Yes. Accurate & Complete Informed Consent: Yes. Inpatient/Outpatient History & Physical on Chart: Yes. If H&P is completed, is and addenduem needed: No; If yes, is the addendum complete: N/A. Visualize and Verify Site with Patient/Guarantor: N/A. Relevant Radiology Images available: N/A. Pre-op teaching completed and patient verbalized understanding. The risks, benefits, and alternatives of sedation and/or procedure were discussed by physician. The patient agrees to continue. Procedure started. Correct patient, site and procedure confirmed by cath team. PERRLA. Strong, equal hand case mgr bilaterally. Lungs clear x 5 lobes. IV Site on Arrival: 20 gauge in the left anticubital. IV Fluids: D50 at KVO. 0 mL infused prior to [place] laborer. Pre Procedural Pulses: right dorsalis pedis was Doppled. Pre Procedural Pulses: left dorsalis pedis was Absent. Pre Procedural Pulses: bilateral posterior tibial was 1+. Oxygen started at 2liters/min via nasal canula. Baseline sample Acquired. HR: 62 BPM. Physician notified. bilateral groins was prepped with chloroprep then draped in the usual sterile fashion. Equipment: Peripheral. Cardiac Cath Pack. ACIST Manifold Kit Model BT 2000. Heparinized Saline (2 units/mL), 1000 mL bag. Inventory is JJ 6F 11cm Sierra Plus Sheath. Physician scrubbed in. Immediate Pre-Procedure Time Out. Correct Patient: Yes; Correct Procedure: Yes; Correct Site: Yes; Correct Patient Position: Yes; Correct Supplies: Yes; Dried Flammable Prep: Yes; Blood Products Available: N/A;. Lidocaine 1% infiltrated to the left groin. Arterial access obtained with micropuncture set. A 5 kiswahili Short Straight Marker Pig catheter in over wire. Abdominal aortogram performed in AP @ 10 mL/sec for a total of 30 mL. Glidewire inserted. PIG catheter removed over glidewire. Glidewire out. A JJ 5F RIM 65 cm Diagnostic Catheter was advanced over the wire and used for Lower extremity arteriography. Glidewire out. Right leg runoff 10 ml for total of 30 ml. Glidewire inserted. Glidewire inserted. Catheter removed over the glide wire. Short 6 fr sheath exchanged for 45 cm 6 fr Flexor sheath. Inventory is 6 FR FLEXOR SHEATH 45CM. Right common iliac selected and arteriogram performed. Side port of sheath attached to Normal Saline flush at KVO to maintain patency. Inflation number : 1 A AB ARMADA 35 OTW [id number] was prepped and advanced across the Common Iliac, Right , then inflated to 12 JAVIER for 1:02 seconds. Balloon out over wire. Results checked. A EV3 5 Fr Trailblazer Support Catheter was advanced over the wire and used for Lower extremity arteriography. Hand injection through Trailblazer. Glidewire out. Hand injection through Trailblazer. Command wire inserted. Command wire out. Hand injection through Trailblazer. Inventory: Viper wire. Viper wire inserted. Catheter removed over the Viper wire. VIPER wire seated below the knee. 2.00 Diamondback 360 Orbital atherectomy device inserted over VIPER wire. Orbital atherectomy performed in prox SFA. Orbital atherectomy performed in Mid to Distal SFA. Orbital atherectomy performed in Mid to Distal SFA. Orbital atherectomy performed in Mid to Distal SFA. Orbital atherectomy performed in Distal SFA. Atherectomy device removed over wire. Trailblazer catheter inserted over VIPER wire. Viper wire out. Glidewire inserted. Catheter removed over the glide wire. Inflation number : 1 A AB [place] 35 SUPERVISOR [employer] DIV[employer] Catheter [id number] was prepped and advanced across the Superficial Femoral, Right , then inflated to 7 JAVIER for 1:03 seconds. Inflation number: 2 The AB [place] 35 SUPERVISOR [employer] DIV[employer] Catheter [id number] was reinflated across the Superficial Femoral, Right, to 12 JAVIER for 1:04 seconds. Balloon out over glidewire. Inflation number : 3 A BARD 5FR Lutinox [id number] drug coated balloon was prepped and advanced across the Superficial Femoral, Right , then inflated to 4 JAVIER for 1:03 seconds. Inflation number: 4 The BARD 5FR Lutinox [id number] drug coated balloon was reinflated across the Superficial Femoral, Right, to 12 JAVIER for 2:03 seconds. Balloon out over wire. Inflation number: 1 The AB ARMADA 35 OTW [id number] was reinflated across the Superficial Femoral, Right1, to 6 JAVIER for 1:04 seconds. Inflation number: 2 The AB ARMADA 35 OTW [id number] was reinflated across the Superficial Femoral, Right1, to 6 JAVIER for 0:34 seconds. Inflation number: 3 The AB ARMADA 35 OTW [id number] was reinflated across the Superficial Femoral, Right1, to 6 JVAIER for 0:12 seconds. Inflation number: 4 The AB ARMADA 35 OTW [id number] was reinflated across the Superficial Femoral, Right1, to 10 JAVIER for 0:43 seconds. Inflation number: 5 The AB ARMADA 35 OTW [id number] was reinflated across the Superficial Femoral, Right1, to 10 JAVIER for 0:54 seconds. Balloon out over wire. Results checked. Long 45 cm 6 fr Flexor sheath exchanged for short 6 fr sheath. Left leg runoff through the sheath 10 ml for total of 30 ml. A Suture was successful obtaining hemostatsis at the Left Femoral artery insertion site. Sheath(s) sutured into position with 2-0 silk and sterile 4x4's and Op-site applied over the site. No oozing or signs and symptoms of hematoma noted. Post Procedure: Pulses reassessed and unchanged. PERRLA. Strong, equal hand case mgr bilaterally. No VTE prophylaxis required. Medication's Wasted: Heparin = 3000 units. Medication's Wasted: Nitro = 48.6 mg. Medication's Wasted: Other = fentanyl 50 mcg. Total IV fluids: 125 mL. Contrast type used: Visipaque 320 mgI/mL, 500 mL bottle. Post-op diagnosis: severe PVD. Complications: none. Estimated blood loss: 5mL-10mL. Procedure completed. Patient transferred by bed to 1st floor. Vital chart was stopped. Procedure Medications Start: 9:28 AM Stop: 9:28 AM Medication: D50W Amount: 1 Route: I.V. Start: 9:29 AM Stop: 9:29 AM Medication: Versed Amount: 1 mg Route: I.V. Start: 9:29 AM Stop: 9:29 AM Medication: Fentanyl Amount: 50 mcg Route: I.V. Start: 9:41 AM Stop: 9:41 AM Medication: Versed Amount: 1 mg Route: I.V. Start: 9:42 AM Stop: 9:42 AM Medication: Fentanyl Amount: 25 mcg Route: I.V. Start: 9:55 AM Stop: 9:55 AM Medication: Versed Amount: 1 mg Route: I.V. Start: 10:04 AM Stop: 10:04 AM Medication: Heparin Amount: 4000 units Route: I.V. Start: 10:25 AM Stop: 10:25 AM Medication: Fentanyl Amount: 25 mcg Route: I.V. Start: 10:31 AM Stop: 10:31 AM Medication: Heparin Amount: 2000 units Route: I.V. Start: 10:32 AM Stop: 10:32 AM Medication: Versed Amount: 1 mg Route: I.V. Start: 10:48 AM Stop: 10:48 AM Medication: Versed Amount: 1 mg Route: I.V. Start: 10:57 AM Stop: 10:57 AM Medication: Fentanyl Amount: 50 mcg Route: I.V. Start: 10:57 AM Stop: 10:57 AM Medication: Nitrogylcerin Amount: 400 mcg Route: I.A. I, the attending physician, have reviewed and verified all procedure medications. Yes, all medications given per verbal order History/Risk Factors Hypertension: Yes Dyslipidemia: Yes Peripheral Arterial Disease (PAD): Yes Obesity: No Renal Disease: No Tobacco Use: Former Prior Interventions PCI: No CABG: No Valve Surgery: No Report Signatures Finalized by Kishan Johnson MD on 10/29/2020 07:48 PM
[2020-10-16] MEDS: diphenhydrAMINE 50 mg Capsule PO (08:30)
--- NOTE | 2020-10-16 09:10 | W.PM.OPSUD ---
Surgery/Procedure H&P Update DATE OF PROCEDURE: October 16, 2020 DATE H&P PERFORMED: 10/05/20 H&P UPDATE INFORMATION: I have reviewed H&P completed within last 30 days, I have examined patient prior to procedure and No changes to prior documentation PREOP DIAGNOSIS: life style limiting claudication PLANNED PROCEDURE: Operation Date: 10/16/20 08:30 Proposed Procedures p Peripheral Angiogram 83455 I73.9(Not Applicable) - Kishan Johnson MD PATIENT REASSESSED PRIOR TO SEDATION, WITH NO CHANGE NOTED: Yes PHYSICAL EXAM: alert, oriented x 3 and clear to auscultation bilaterally AIRWAY EVAL/ANESTHESIA PLAN: ASA II, Risks, benefits & alternatives of sedation and/or procedure discussed and Patient agrees to continue as planned
[2020-10-16 10:02] LABS: Glucose Point of Care 71 mg/dL (70-110)
[2020-10-16 12:07] LABS: Glucose Point of Care 132 mg/dL (70-110)
--- NOTE | 2020-10-16 13:25 | PC.RESP ---
PULMONARY REHAB INFORMATION SENT TO PATIENT.
[2020-10-16] MEDS: tamsulosin 0.4 mg Capsule PO (13:50)
[2020-10-16] MEDS: losartan 50 mg Tablet 100 MG PO (13:50)
[2020-10-16] MEDS: atorvastatin 40 mg Tablet 20 MG PO (13:51)
[2020-10-16] MEDS: clopidogrel 300 mg Tablet PO (13:51)
[2020-10-16] MEDS: montelukast sodium 10 mg Tablet PO (13:51)
[2020-10-16] MEDS: amlodipine 5 mg Tablet PO (13:51)
[2020-10-16] MEDS: pantoprazole DR 40 mg Tablet PO (13:54)
[2020-10-16 15:00] LABS: Partial Thromboplastin Time 28.9 SECONDS (23.9-36.7)
--- NOTE | 2020-10-16 15:30 | PC.NURSE ---
[address] browne ok to pull sheath from groin PTT noted 28.[address] browne to pull sheath per protocol
--- NOTE | 2020-10-16 16:18 | PC.NURSE ---
Sheath Removal Left femoral sheath removed per protocol. Pt tolerated well. No hematoma present. Vital signs stable throughout. Will continue to monitor.
[2020-10-16 17:11] LABS: Glucose Point of Care 119 mg/dL (70-110)
--- NOTE | 2020-10-16 20:04 | ECG_ITS ---
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 Measurements Intervals [place] Rate: 64 P: 52 MI: 242 QRS: -68 QRSD: 137 T: 61 QT: 403 QTc: 416 Interpretive Statements SINUS RHYTHM WITH FIRST DEGREE AV BLOCK RIGHT BUNDLE BRANCH BLOCK [120+ ms QRS DURATION, UPRIGHT V1, 40+ ms S IN I/aVL/V4/V5/V6] LEFT ANTERIOR FASCICULAR BLOCK [QRS AXIS <= -45, QR IN I, RS IN II] POSSIBLE SEPTAL MYOCARDIAL INFARCTION [30 ms Q WAVE IN V1/V2], OF INDETERMINATE AGE Compared to ECG 08/31/2020 19:52:18 First degree AV block now present Myocardial infarct finding now present Sinus tachycardia no longer present Electronically Signed On 10-17-2020 20:14:31 CDT by Lois Last M.D. [id number]
--- NOTE | 2020-10-16 20:47 | PC.NURSE ---
Dr. Johnson notified of patient having two short episodes, only lasting a few seconds, of nausea, bradycardia, and hypotension. Patient reports not feeling well. EKG taken.
[2020-10-16 20:58] LABS: Glucose Point of Care 142 mg/dL (70-110)
--- NOTE | 2020-10-16 21:21 | PC.NURSE ---
Addendum entered by Nora Echeverria RN 10/16/20 22:12: Awaiting orders. Original Note: Dr. Medeiros notified of patient having a blood sugar of 142. 46 units Lantus due at this time. Patient is asking that his Lantus dose be decreased, stating, I don't want my sugar to bottom out.
[2020-10-16] MEDS: metoprolol tartrate 25 mg Tablet PO (21:24)
--- NOTE | 2020-10-16 22:38 | PC.NURSE ---
Patient's laying blood pressure is 116/49. Patient's sitting blood pressure is 93/41. There was no change in heart rate. Patient became very dizzy when sitting on the side and was unable to get up to walk. Dr. Johnson notified. Ordered to give NS at 150 ml/hr for one bag only and check CBC and BMP in AM.
--- NOTE | 2020-10-16 22:42 | PC.NURSE ---
Addendum entered by Nora Echeverria RN 10/16/20 22:46: Dr. Medeiros notified. Original Note: Patient is refusing Lantus at this time.
[2020-10-16] MEDS: sodium chloride 0.9% 1,000 ML 150 ML IV (23:50)
--- NOTE | 2020-10-16 23:54 | PC.NURSE ---
Addendum entered by Nora Echeverria RN 10/16/20 23:59: Dr. Johnson notified of patient already having Protonix ordered daily. Original Note: Dr. Johnson notified of patient complaining of right leg pain, nausea, and being diaphoretic. Ordered to give Hydrocodone, Zofran, and Protonix.
[2020-10-17] VITALS (7 sets, daily range): BP systolic 117–130; BP diastolic 44–60; PULSE 69–93; RESP 14–17; TEMP 36.8–37.3; O2SAT 92–96
[2020-10-17 00:08] LABS: Glucose Point of Care 100 mg/dL (70-110)
[2020-10-17] MEDS: ondansetron 2 mg/ML SDV 2 mL 4 MG IVP (00:13)
[2020-10-17] MEDS: HYDROcodone-acetaminophen 5-325 mg Tablet 1 TAB PO (00:13)
[2020-10-17 04:56] LABS: Basophils % 0.2 %; Eosinophils % 0.2 %; Hematocrit 36.2 % (42.0-52.0); Lymphocytes # 0.9 10^3/uL (0.8-4.8); Lymphocytes % 7.6 %; Mean Corpuscular HGB Conc 33.1 g/dL (30.0-36.0); Mean Corpuscular Hemoglobin 30.8 pg (28.0-34.0); Mean Corpuscular Volume 93.1 fL (80-94); Mean Platelet Volume 10.6 fL (7.4-10.4); Monocytes # 1.1 10^3/uL (0.2-0.9); Monocytes % 8.6 %; Neutrophils # 10.23 10^3/uL (1.8-7.7); Nucleated Red Blood Cells % 0 %; Platelet Count 218 10^3/cmm (130-400); Red Blood Count 3.89 10^6/uL (4.1-5.3); Red Cell Distribution Width 13.8 % (12.1-15.1); White Blood Count 12.3 10^3/uL (4.0-10.0)
[2020-10-17 05:19] LABS: Anion Gap 13.8 (5-19); Blood Urea Nitrogen 15 mg/dL (8-23); Calcium 8.6 mg/dL (8.5-10.5); Carbon Dioxide 23 mmol/L (22-29); Chloride 96 mmol/L (98-107); Glucose 199 mg/dL (65-115); Osmolality Calculated 272 mOsm/kg (285-295); Potassium 4.8 mmol/L (3.5-5.1); Sodium 128 mmol/L (136-145)
--- NOTE | 2020-10-17 06:40 | PC.NURSE ---
Patient ambulated with nurse at this time. Blood pressure is 130/66. Patient stated he did not feel dizzy, but did have some right leg pain.
--- NOTE | 2020-10-17 06:41 | PC.NURSE ---
Addendum entered by Nora Echeverria RN 10/17/20 06:41: *left* Original Note: Right groin site WNL.
[2020-10-17 06:55] LABS: Glucose Point of Care 259 mg/dL (70-110)
[2020-10-17] MEDS: aspirin 325 mg Tablet PO (09:12)
[2020-10-17] MEDS: tamsulosin 0.4 mg Capsule PO (09:12)
[2020-10-17] MEDS: montelukast sodium 10 mg Tablet PO (09:12)
[2020-10-17] MEDS: pantoprazole DR 40 mg Tablet PO (09:12)
[2020-10-17] MEDS: atorvastatin 40 mg Tablet 20 MG PO (09:12)
[2020-10-17] MEDS: losartan 50 mg Tablet 100 MG PO (09:12)
[2020-10-17] MEDS: metoprolol tartrate 25 mg Tablet PO (09:54)
--- NOTE | 2020-10-17 10:26 | PC.CHAP ---
Pastoral Care Encounter/Spiritual Assessment Type of Contact [] Declined cable tool operator visit [] Patient/Family/Request visit [] Outpatient visit [] Follow-up visit [] Physician referral [] Code/Alert [x] Routine visit [] Staff referral [] Actively dying [] Patient sleeping [] Family support [] [] Out of room [] Palliative care [] [] Receiving care in room [] Pre-surgical visit [] Trauma [] Long length of stay [] ICU visit [] Other: Relational/Emotional Strength [] Patient feels connected with others/family/visitors/staff [] Distress [] Loneliness/isolation [] Abandonment Spirituality of Patient [] Person of Jen [] Attends Sikhism of their Jen [] Believes in Prayer [] Reads Bible or Jain materials [] There are Spiritual issues to be addressed Retirement Officer Interventions [x] Prayer [x] Active listening [x] Non-anxious presence [x] Spiritual/emotional support [] Crisis/trauma care [] Spiritual counseling [] Bereavement support [] Provided bereavement packet [] Provided Bible/devotional materials [] Provided toy/stuffed animal, coloring book to patient or family member [] Provided Communion [] Anointing/[place] [] Salvation [x] Completed spiritual assessment [] Other: Impact on Illness or Injury [] Angry [] Fearful [] Anxious [] Often cries [] Exhaustion [] Unable to work [] Unable to attend mosque [] Unable to walk/stand [] Unable to read [] Unable to drive [] Unable to eat/drink [] Unable to sleep [] Unable to be with family [] Patient intubated [] Other: Summary feeling stronger.. gets to go home today... good spirits Time spent with patient 10 min
[2020-10-17 10:54] LABS: Glucose Point of Care 181 mg/dL (70-110)
--- NOTE | 2020-10-17 11:45 | P.SS_ITS ---
Short Stay Summary Providers Date of Admit/Discharge: 10/29/20 Attending Provider: Kishan Johnson MD Primary Care Provider: Pete Pope DO Chief Complaint: Peripheral Diagnostic HPI History of Present Illness Fidel Holliday is a 75 year old male who underwent with balloon angioplasty of right common iliac, proximal mid to distal right SFA and proximal right popliteal artery for lifestyle limiting claudication. CSI atherectomy was also performed followed by drug-coated balloon of the proximal right SFA and mid to distal SFA. Good angiographic result was obtained. There was residual 50% stenosis of the proximal SFA, it was left alone as I try to avoid the stenting. We will see how the patient perform over period of time. Post balloon angioplasty moderate hematoma observed after pulling the sheath of the left groin. In the morning large bruise was noted. Vascular ultrasound rule out pseudoaneurysm. Overall he is doing fine from a vascular perspective. He will be discharged home and followed up by us in the clinic. We will assess him in few weeks for any worsening of claudication to consider any further angioplasty of the right proximal SFA. Home Meds/Allergies Home Medications and Allergies Home Medications Medication Instructions Recorded Confirmed Type albuterol sulfate 90 mcg/actuation 2 inh INHALATION Q6H PRN 11/08/19 10/26/20 History breath activated powder inhaler cetirizine 10 mg capsule 10 mg PO DAILY cap 11/08/19 10/26/20 History fluticasone propionate 50 2 inh INHALATION DAILY PRN each 11/08/19 10/26/20 History mcg/actuation blister powder for inhalation insulin glargine 100 unit/mL (3 46 unit SUBCUT DAILY@2100 ml 11/08/19 10/26/20 History mL) subcutaneous pen losartan 100 mg tablet 100 mg PO DAILY 11/08/19 10/26/20 History montelukast 10 mg tablet 10 mg PO DAILY 11/08/19 10/26/20 History pantoprazole 40 mg tablet,delayed 40 mg PO DAILY 11/08/19 10/26/20 History release simvastatin 20 mg tablet 10 mg PO DAILY tab 11/08/19 10/26/20 History metoprolol tartrate 50 mg tablet 25 mg PO BID tab 08/28/20 10/26/20 History Probiotic 1 tab PO DAILY 08/31/20 10/26/20 History Vitamin D3 1 tab PO DAILY 08/31/20 10/26/20 History fluticasone propionate [Flonase See Rx Instructions .ROUTE .COMPLEX 08/31/20 10/26/20 History Allergy Relief] insulin aspart U-100 [Novolog 10 unit SUBCUT TIDWM 08/31/20 10/26/20 History Flexpen U-100 Insulin] amlodipine 5 mg PO DAILY 10/13/20 10/26/20 History Allergies Allergy/AdvReac Type Severity Reaction Status Date / Time No Known Allergies Allergy Verified 10/26/20 10:43 PFSH Acute PFSH: Medical History Bilateral carotid artery stenosis COPD (chronic obstructive pulmonary disease) Diabetes GERD (gastroesophageal reflux disease) Hearing loss History of left common carotid artery stent placement Hypertension PAD (peripheral artery disease) Peripheral vascular disease Peripheral vascular disease Seizure disorder Sleep apnea Surgical History H/O carotid endarterectomy H/O esophagogastroduodenoscopy H/O knee surgery History of back surgery S/P appendectomy Status post colonoscopy with polypectomy Status post laparoscopic cholecystectomy (12/01/19) Family History Other CAD (coronary artery disease) Cancer Dementia Diabetes Hyperlipidemia Hypertension Pacemaker Stroke Denies family history of Chronic kidney disease (CKD) Anesthesia complication Bleeding disorder Family history of premature coronary artery disease Lung disease Social History Smoking and tobacco status: former smoker Quit status (tobacco): has quit using tobacco Alcohol intake: current Alcohol intake frequency: holidays/special occasions only Dietary Habits: Current diet type/program: regular Caffeine: Yes High- fat food intake: 2 times daily Daily servings fruits/vegetables: 0-1 Daily servings of milk/calcium: 0-1 Eating out: rarely or never Reads food labels: usually or always During the past year weight has: remained stable Exercise: What type of physical activity do you participate in?: walking Physical activity functional status: independent ambulation How many days of moderate to strenuous exercise, like a brisk walk, did you do in the last 7 days: 2 Safety: Seatbelt use: always Helmet use: No Drive intoxicated or ride with intoxicated auto crane driver?: never Home Safety: Water heater temperature set < 120 degrees: No Working smoke detector in home: Yes Fire extinguisher in home: No Carbon monoxide detector in home: Yes Firearms in home: Yes Personal Safety: Do you feel safe at home: No Victim of physical abuse: No Victim of emotional abuse: No Victim of sexual abuse: No Would you like help information on resources?: No NHANES Social Connection/Isolation: Are you now , , , , never or living with a partner?: In a typical week, how many times do you talk on the telephone with family, friends, or neighbors?: Three or More Times per Week How often do you get together with friends or relatives?: Three or More Times per Week Do you belong to any clubs or organizations such as jainism groups unions, fraternal or athletic groups, or school groups?: No Social isolation score (0-1 are the most socially isolated patients): 2 Social isolation score reviewed/action taken: No Vitals/I&O/Wt Last Vital Signs Temp 99.2 F 10/17/20 04:08 Pulse 77 10/17/20 07:15 Resp 17 10/17/20 07:15 BP 129/56 10/17/20 09:12 Pulse Ox 94 10/17/20 07:15 10/16/20 10/17/20 10/17/20 22:59 06:59 14:59 Intake Total 300 / 300 1200 / 1500 120 / 120 Output Total 100 / 100 225 / 325 Balance 200 / 200 975 / 1175 120 / 120 Weight last 48 hrs Weight 187 lb Physical Exam Narrative: EXAM NARRATIVE: GENERAL: Patient is alert, awake and oriented x3. NECK: No jugular vein distension. HEENT: No cyanosis. No icterus. No pallor. HEART: Regular S1 and S2. No murmur, rub or gallop. LUNGS: Clear to auscultate bilaterally. ABDOMEN: Soft, nontender and nondistended. Positive bowel sounds. No guarding, rebound or tenderness. CENTRAL NERVOUS SYSTEM: Grossly nonfocal. EXTREMITIES: Lower extremities without edema bilaterally. Left mild hematoma with large bruising. 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 Routin e Exams 10/16/20 07:30 Taken Discharge Plan Discharge Patient Disposition: Home Condition: Stable Prescriptions: New clopidogrel 75 mg tablet 75 mg PO DAILY Qty: 90 RF: 0 Adult Aspirin Regimen 81 mg tablet,delayed release (DR/EC) 81 mg PO DAILY Qty: 90 RF: 5 Continued albuterol sulfate 90 mcg/actuation aerosol powdr breath activated 2 inh INHALATION Q6H PRN (Reason: breathing) RF: 0 fluticasone propionate 50 mcg/actuation blister with device 2 inh INHALATION DAILY PRN (Reason: Dry Nasal Passages) RF: 0 cetirizine 10 mg capsule 10 mg PO DAILY RF: 0 insulin glargine 100 unit/mL (3 mL) insulin pen 46 unit SUBCUT DAILY@2100 RF: 0 losartan 100 mg tablet 100 mg PO DAILY RF: 0 montelukast [Singulair] 10 mg tablet 10 mg PO DAILY RF: 0 pantoprazole 40 mg tablet,delayed release (DR/EC) 40 mg PO DAILY RF: 0 simvastatin 20 mg tablet 10 mg PO DAILY RF: 0 metoprolol tartrate 50 mg tablet 25 mg PO BID RF: 0 amlodipine 5 mg Tablet 5 mg PO DAILY RF: 0 fluticasone propionate [Flonase Allergy Relief] 50 mcg/actuation [place],Suspension See Rx Instructions .ROUTE .COMPLEX RF: 0 insulin aspart U-100 [Novolog Flexpen U-100 Insulin] 100 unit/mL (3 mL) insulin pen 10 unit SUBCUT TIDWM RF: 0 Probiotic 1 tab PO DAILY RF: 0 Vitamin D3 1 tab PO DAILY RF: 0 tamsulosin 0.4 mg Capsule 0.4 mg PO DAILY Qty: 30 RF: 0 Discontinued aspirin 325 mg 325 mg PO DAILY RF: 0 Hold Instructions: Resume on 12/04/19. Discharge Orders: Discharge Order (Routine); Ordered 10/17/20 Ordered By: Kishan Johnson Referrals: Kishan Johnson MD [Physician] - 1 month (Please follow-up with Dr. Johnson on November 30 at 3:00P.M. If you have any questions or need to reschedule. Please call ) Mansi Moreno FNP [Nurse Practitioner] - 1 week (Please follow-up with Mansi Moreno on at 10:30A.M. If you have any questions or need to reschedule. Please call ) Discharge Diet: Cardiac and Diabetic Discharge Activity: Increase activity as tolerated Patient Instructions: Aspirin (By mouth), Clopidogrel (By mouth), Peripheral Vascular Angioplasty (DC), Post Angiogram Home Care Instructions Activity Restrictions/Additional Instructions: Follow-up with Mansi Moreno cardiology nurse practitioner in 7 to 10 days. Follow-up with Dr. Johnson in 6 to 8 weeks. Attestations Medical Necessity Statement*: Patient can be discharged home today Time Spent in Patient Care*: other Specific Discharge Activities: Specific discharge activities: educating patient and educating and/or supporting family/caregiver Quality Metrics Clinical Quality Measures: During this hospital stay, did patient experience: None Coding Level of Care Code Acute Career Development Specialist for Chg Fwd Exam Expanded Problem Focused
--- NOTE | 2020-10-17 14:09 | PC.NURSE ---
Discharge Discharge instructions, new medication education, and follow-up appointments explained to patient. Patient verbalized understanding. Patient transported via wheelchair to spouse waiting outside.
== END 2020-10-17 13:58 | disposition home or self-care (01) ==
LOC: CCL 06:55 → CSU 10-17 07:49
PROVIDERS: PCP Emergency Medicine Emergency Medical Services; Visit Provider Internal Medicine Cardiovascular Disease
DX: I70.203 Unspecified atherosclerosis of native arteries of extremities, bilateral legs (principal); J44.9 Chronic obstructive pulmonary disease, unspecified; E11.9 Type 2 diabetes mellitus without complications; K21.9 Gastro-esophageal reflux disease without esophagitis; I10 Essential (primary) hypertension; G47.30 Sleep apnea, unspecified; Z87.891 Personal history of nicotine dependence; Z82.49 Family history of ischemic heart disease and other diseases of the circulatory system; Z83.3 Family history of diabetes mellitus
CPT/HCPCS: 36415; 36416; 37220; 37225; 75625; 75716; 80048; 82962; 85025; 85730; 93005; 96372; C1724; C1725; C1769; C1887; C1894; C2623; J1644; J1815; J2250; J2405; J3010; J3490; J7030; Q0163; Q9967

== ENCOUNTER → 2020-10-26 11:22 | Outpatient (BNVA) | payer OTHER, MEDICARE, SELFPAY | PROVIDERS: PCP Emergency Medicine Emergency Medical Services; Visit Provider Nurse Practitioner Family | DX: I73.9 Peripheral vascular disease, unspecified (principal); I10 Essential (primary) hypertension; J44.9 Chronic obstructive pulmonary disease, unspecified; E11.9 Type 2 diabetes mellitus without complications | CPT/HCPCS: 80048 ==

== ENCOUNTER → 2020-11-15 09:21 | Outpatient (BNVA) | payer OTHER, MEDICARE, SELFPAY | PROVIDERS: PCP Emergency Medicine Emergency Medical Services; Visit Provider Internal Medicine Cardiovascular Disease | DX: I73.9 Peripheral vascular disease, unspecified (principal); Z20.822 Contact with and (suspected) exposure to COVID-19 | CPT/HCPCS: 87635 ==

== ENCOUNTER 2020-11-20 08:43 | Day surgery (SDC) | payer OTHER, MEDICARE, SELFPAY ==
[2020-11-15 09:17] LABS: Basophils # 0.1 10^3/uL (0.0-0.1); Basophils % 1.1 %; Eosinophils # 0.4 10^3/uL (0.0-0.8); Eosinophils % 5.7 %; Hematocrit 42.8 % (42.0-52.0); Lymphocytes # 1.4 10^3/uL (0.8-4.8); Lymphocytes % 18.8 %; Mean Corpuscular HGB Conc 32.7 g/dL (30.0-36.0); Mean Corpuscular Hemoglobin 30.4 pg (28.0-34.0); Mean Corpuscular Volume 92.8 fL (80-94); Mean Platelet Volume 10.3 fL (7.4-10.4); Monocytes % 13.2 %; Neutrophils # 4.65 10^3/uL (1.8-7.7); Neutrophils % 61.1 %; Nucleated Red Blood Cells % 0 %; Platelet Count 271 10^3/cmm (130-400); Red Blood Count 4.61 10^6/uL (4.1-5.3); Red Cell Distribution Width 13.8 % (12.1-15.1); White Blood Count 7.6 10^3/uL (4.0-10.0)
[2020-11-15 09:29] LABS: INR 1.04 (0.83-1.21); Prothrombin Time (Patient) 13.9 Seconds (12.0-15.1)
[2020-11-15 09:39] LABS: Anion Gap 10.4 (5-19); Blood Urea Nitrogen 11 mg/dL (8-23); Calcium 9.5 mg/dL (8.5-10.5); Carbon Dioxide 31 mmol/L (22-29); Chloride 97 mmol/L (98-107); Glucose 62 mg/dL (65-115); Osmolality Calculated 275 mOsm/kg (285-295); Potassium 4.4 mmol/L (3.5-5.1); Sodium 134 mmol/L (136-145)
[2020-11-17 08:57] VITALS: BMI 27.2
[2020-11-20] VITALS (44 sets, daily range): BP systolic 133–189; BP diastolic 7–117; PULSE 59–83; RESP 12–19; TEMP 36.4–36.8; O2SAT 91–99; BMI 27.2
[2020-11-20] MEDS: diphenhydrAMINE 50 mg Capsule PO (10:00)
--- NOTE | 2020-11-20 10:00 | XACV_ITS ---
Ht: 178 cm Wt: 86 kg BSA: 2.08 m2 Any Known Allergies: No known allergies Gender: Male : 1945 Exam Type: Invasive Peripheral Vascular Procedure(s): Procedure Description: Peripheral Cath Diagnostic Procedure Procedure Description: Iliac arterial aortic angiography Procedure Description: Lower extremities' angiography Procedure Description: Peripheral vascular Intervention Procedure Description: PV Balloon Procedure Description: PV Atherectomy Exam Priority: Routine Lower Extremity Interventional Findings Using left common femoral artery approach we were able to cross into the right SFA. Viper wire was exchanged with a Glidewire. Using 2.0 CSI atherectomy device atherectomy was performed with multiple runs. Ostial right SFA lesion was then dilated with 7.0x20 ARMADA balloon. Excellent angiographic result was noted. Good flow was noted from common iliac to below the knee three-vessel runoff.. Conclusions Recently patient underwent percutaneous angioplasty of ostial to distal SFA with excellent result however after a few weeks he started having lifestyle limiting claudication therefore he was brought back and noted to have ostial significant stenosis of the right SFA though in short segment.Right common iliac, external iliac, internal iliac, profunda femoral artery has luminal irregularity. Right ostial SFA has significant calcified 80% stenosis which appear to be hemodynamically significant. Right SFA, popliteal, tibioperoneal trunk has luminal irregularity. Below the knee three-vessel runoff was noted.. Recommendations Continue medical management and risk factor modification. Hemodynamic Data Phase:Rest AO : 120.0 / 52.0 ( 80.0 ) @ 10:15:00 AM 115.0 / 48.0 ( 75.0 ) @ 10:27:00 AM 125.0 / 51.0 ( 80.0 ) @ 10:49:00 AM 146.0 / 53.0 ( 89.0 ) @ 10:50:00 AM 154.0 / 51.0 ( 90.0 ) @ 10:51:00 AM Access Site Site: Left Femoral artery Sheath Size: 6 Fr Hemost... Method: Suture Hemost... Success: Successful Procedure Details Findings Procedure Consent Obtained. Pre-Procedure Time Out. Identified patient by full name and date of as verbalized by the patient/guarantor. Does the consent match the physician's order: Yes. Accurate & Complete Informed Consent: Yes. Inpatient/Outpatient History & Physical on Chart: Yes. If H&P is completed, is and addenduem needed: No; If yes, is the addendum complete: N/A. Visualize and Verify Site with Patient/Guarantor: N/A. Relevant Radiology Images available: N/A. Pre-op teaching completed and patient verbalized understanding. The risks, benefits, and alternatives of sedation and/or procedure were discussed by physician. The patient agrees to continue. Inventory is TR Glidewire Angled Stiff Shaft .035 260cm. Equipment: Peripheral. Physician arrived. Cardiac Cath Pack. ACIST Manifold Kit Model BT 2000. Heparinized Saline (2 units/mL), 1000 mL bag. Inventory is JJ 6F 11cm Sierra Plus Sheath. Procedure started. Correct patient, site and procedure confirmed by cath team. PERRLA. Strong, equal hand chain maker bilaterally. Lungs clear x 5 lobes. IV Site on Arrival: 20 gauge in the left anticubital. IV Fluids: 0.9% NaCl at KVO. 0 mL infused prior to calibration laboratory technician. Pre Procedural Pulses: bilateral dorsalis pedis was Doppled. Pre Procedural Pulses: bilateral posterior tibial was Doppled. Pre Procedural Pulses: bilateral radial was 3+. Oxygen started at 2liters/min via nasal canula. Baseline sample Acquired. HR: 75 BPM. Physician scrubbed in. Immediate Pre-Procedure Time Out. Time out performed with cath team. Lidocaine 1% infiltrated to the left groin. Arterial access obtained with micropuncture set. A JJ 5F RIM 65 cm Diagnostic Catheter was advanced over the glidewire and used to advance wire to mid SFA. Catheter out over glide wire. Short 6 fr sheath exchanged for long 45 cm 6 fr Flexor sheath. Right leg runoff 10 ml for total of 30 ml. Side port of sheath attached to Normal Saline flush at KVO to maintain patency. SEEKER support catheter inserted over glidewire. Glidewire out. VIPER wire inserted into right SFA. SEEKER removed over Viper wire. A 2.00 Diamondback 360 orbital atherectomy device inserted over VIPER wire. Orbital atherectomy performed in ostial Right SFA. Orbital atherectomy performed in ostial Right SFA. Atherectomy device removed over VIPER wire. SEEKER support catheter inserted over VIPER wire. Viper wire out. Glidewire inserted. Seeker catheter removed over glidewire. Inflation number : 1 A AB ARMADA 35 OTW [id number] was prepped and advanced across the Ostial Superficial Femoral, Right , then inflated to 16 JAVIER for 1:05 seconds. Inflation number: 2 The AB ARMADA 35 OTW [id number] was reinflated across the Ostial Superficial Femoral, Right, to 8 JAVIER for 0:09 seconds. Inflation number: 3 The AB ARMADA 35 OTW [id number] was reinflated across the Ostial Superficial Femoral, Right, to 16 JAVIER for 1:01 seconds. Inflation number: 4 The AB ARMADA 35 OTW [id number] was reinflated across the Ostial Superficial Femoral, Right, to 16 JAVIER for 1:02 seconds. Inflation number: 5 The AB ARMADA 35 OTW [id number] was reinflated across the Ostial Superficial Femoral, Right, to 18 JAVIER for 1:01 seconds. Balloon out over wire. Results checked. Iliac angiography performed with DSA. Right leg runoff 10 ml for total of 30 ml. Long 45 cm 6 fr flexor sheath exchanged for short 6 fr sheath. Angiography with DSA performed to left iliacs. Angiography with DSA performed to left SFA. Dr Johnson scrubbed out. A Suture was successful obtaining hemostatsis at the Left Femoral artery insertion site. Sheath(s) sutured into position with 2-0 silk and sterile 4x4's and Op-site applied over the site. No oozing or signs and symptoms of hematoma noted. Arterial sheath flushed and connected to tranducer and pressure bag with heparinized saline. Post Procedure: Pulses reassessed and unchanged. PERRLA. Strong, equal hand chain maker bilaterally. No VTE prophylaxis required. Medication's Wasted: Nitro = 49 mg. Total IV fluids: 50 mL. Contrast type used: Visipaque 320 mgI/mL, 500 mL bottle. Complications: none. Estimated blood loss: 5mL-10mL. Post-op diagnosis: lifestyle limiting claudication, severe ostial lesion of right SFA. Procedure completed. Patient transferred by bed to ICU. Vital chart was stopped. Procedure Medications Start: 10:50 AM Stop: 10:50 AM Medication: Versed Amount: 1 mg Route: I.V. Start: 10:50 AM Stop: 10:50 AM Medication: Fentanyl Amount: 50 mcg Start: 11:20 AM Stop: 11:20 AM Medication: Heparin Amount: 5000 units Route: I.V. Start: 11:35 AM Stop: 11:35 AM Medication: Versed Amount: 1 mg Route: I.V. Start: 11:35 AM Stop: 11:35 AM Medication: Fentanyl Amount: 50 mcg Start: 11:55 AM Stop: 11:55 AM Medication: Heparin Amount: 2000 units Route: I.V. I, the attending physician, have reviewed and verified all procedure medications. Yes, all medications given per verbal order History/Risk Factors Hypertension: Yes Dyslipidemia: No Peripheral Arterial Disease (PAD): Yes Obesity: No Renal Disease: No Tobacco Use: Former Prior Interventions PCI: No CABG: No Valve Surgery: No Report Signatures Finalized by Kishan Johnson MD on 12/03/2020 06:13 PM
--- NOTE | 2020-11-20 10:45 | W.PM.OPSUD ---
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 He was also noted to have moderate lesion in mid to distal left SFA on angiogram. Since patient continues to have claudication in both legs it was decided that we will bring him back for left SFA however according to the patient for the past 3-week he did good with the right leg which underwent balloon angioplasty but started back in hurting again and not to the point that he cannot walk 100 feet without having pain cramps aching and sometimes at rest. During our balloon angioplasties and arthrectomy of the right SFA there was ostial SFA lesion which was very calcified and stubborn to balloon angioplasty after multiple balloon angioplasty with noted to have suboptimal result. At that time we thought that we will see how patient perform if he continues to have claudication I may will bring him back and proceed with possible stent placement of ostial SFA. As defined above post intervention patient did fine for 3 weeks but he think he is back to symptomatic again in the right leg which is bothering him more than the left at this point instead of doing left angiogram we will proceed with right angiogram and fixed if there is any problem. Patient has been explained all risk benefit and already for the procedure. Patient has been explained the risk of stroke major minor bleed urgent emergent surgery. Patient has been explained the risk and FDA warning regarding drug-coated balloon. He would like to proceed with it. PLANNED PROCEDURE: Operation Date: 11/20/20 10:00 Proposed Procedures p Peripheral Diagnostic [id number] I73.9(Left) - Kishan Johnson MD PATIENT REASSESSED PRIOR TO SEDATION, WITH NO CHANGE NOTED: Yes PHYSICAL EXAM: alert, oriented x 3 and clear to auscultation bilaterally AIRWAY EVAL/ANESTHESIA PLAN: ASA II, Risks, benefits & alternatives of sedation and/or procedure discussed and Patient agrees to continue as planned
--- NOTE | 2020-11-20 12:29 | PC.CHAP ---
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 operator visit [] Patient/Family/Request visit [] Outpatient visit [] Follow-up visit [] Physician referral [] Code/Alert [] Routine visit [] Staff referral [] Actively dying [] Patient sleeping [] Family support [] [] Out of room [] Palliative care [] [] Receiving care in room [] Pre-surgical visit [] Trauma [] Long length of stay [] ICU visit [] Other: Relational/Emotional Strength [] Patient feels connected with others/family/visitors/staff [] Distress [] Loneliness/isolation [] Abandonment Spirituality of Patient [] Person of Jen [] Attends Jain of their Jen [] Believes in Prayer [] Reads Bible or Tenriism materials [] There are Spiritual issues to be addressed Front Desk Assistant Interventions [] Prayer [] Active listening [] Non-anxious presence [] Spiritual/emotional support [] Crisis/trauma care [] Spiritual counseling [] Bereavement support [] Provided bereavement packet [] Provided Bible/devotional materials [] Provided toy/stuffed animal, coloring book to patient or family member [] Provided Communion [] Anointing/[place] [] Salvation [] Completed spiritual assessment [] Other: Impact on Illness or Injury [] Angry [] Fearful [] Anxious [] Often cries [] Exhaustion [] Unable to work [] Unable to attend muslim [] Unable to walk/stand [] Unable to read [] Unable to drive [] Unable to eat/drink [] Unable to sleep [] Unable to be with family [] Patient intubated [] Other: Summary Time spent with patient
[2020-11-20] MEDS: montelukast sodium 10 mg Tablet PO (13:08)
[2020-11-20] MEDS: pantoprazole DR 40 mg Tablet PO (13:08)
[2020-11-20] MEDS: sodium chloride 0.9% 1,000 ML 100 ML IV (13:13)
--- NOTE | 2020-11-20 13:29 | PC.NURSE ---
Recieved patient from lab instructor staff at 120. Vitals within normal limits: HR: 75, O@: 96% on Room air, BP: 142/107, Temp: 97.6, RR: 20. No pain reported. Patient recovered in ICU. VItals continued to be within normal limits and charted in worklist.
[2020-11-20 14:27] LABS: Glucose Point of Care 41 mg/dL (70-110)
[2020-11-20 14:27] LABS: Glucose Point of Care 38 mg/dL (70-110)
[2020-11-20 14:31] LABS: Glucose Point of Care 79 mg/dL (70-110)
--- NOTE | 2020-11-20 14:32 | PC.NURSE ---
Patient continues to be alert, but still lethargic after procedure. Nurse checked his Blood glucose levels. Result is 41. Nurse gave patient 240 mL of orange juice. Nurse reched blood sugar. it is now 79 and patient is less lethargic.
[2020-11-20 15:47] LABS: Partial Thromboplastin Time 57.4 SECONDS (23.9-36.7)
--- NOTE | 2020-11-20 16:09 | PC.NURSE ---
PTT resulted: 57. Too high to pull sheath. New order placed for another ptt check. Timed for 1700.
--- NOTE | 2020-11-20 16:42 | PC.RESP ---
Pulmonary Rehab information sent to patient.
[2020-11-20 17:02] LABS: Glucose Point of Care 81 mg/dL (70-110)
--- NOTE | 2020-11-20 17:31 | PC.NURSE ---
Patient continues to produce urine, but his blood pressure is increasing and he has some abdominal discomfort. nurse bladder scanned patient. Retaining 800mL. Nurse explained to patient urinary retention and likelihood of catheter if he is unable to void. Patient attempted to urinate more freequently and was able to have 650 more mL of urine output. Abdominal discomfort relieved.
[2020-11-20] MEDS: metoprolol tartrate 50 mg Tablet 25 MG PO (17:59)
[2020-11-20 18:02] LABS: Partial Thromboplastin Time 25.8 SECONDS (23.9-36.7)
--- NOTE | 2020-11-20 18:07 | PC.NURSE ---
Report Given to Maria Guadalupe in [facility]. Pt transferred to [facility]. Swapped beds with [facility] rather than moving patient to prevent disturbing the Sheath site.
--- NOTE | 2020-11-20 19:13 | PC.NURSE ---
Patient brought to [facility] per EL Franks and EL Munoz. Patient sheath pulled at 1814 per newspaper writer. No complaints by patient. No hematomas or other complications noted. Will continue to monitor patient.
[2020-11-20 19:59] LABS: Glucose Point of Care 176 mg/dL (70-110)
--- NOTE | 2020-11-20 20:00 | PC.NURSE ---
Patient's blood glucose is 176 at this time. Patient is refusing Lantus.
--- NOTE | 2020-11-20 22:46 | PC.NURSE ---
Left groin WNL. Pedal pulse present. VSS. Will monitor.
[2020-11-21] VITALS (7 sets, daily range): BP systolic 144–164; BP diastolic 62–66; PULSE 65–75; RESP 12–19; TEMP 36.6–36.8; O2SAT 94–98
[2020-11-21] MEDS: sodium chloride 0.9% 1,000 ML 100 ML IV
--- NOTE | 2020-11-21 00:21 | PC.NURSE ---
Patient ambulated with nurse as stand by assist. VSS. Left groin site WNL. Will monitor.
[2020-11-21 05:13] LABS: Basophils # 0.1 10^3/uL (0.0-0.1); Basophils % 0.7 %; Eosinophils # 0.4 10^3/uL (0.0-0.8); Eosinophils % 3.4 %; Hematocrit 41.1 % (42.0-52.0); Hemoglobin 13.4 g/dL (11.7-16.6); Lymphocytes # 1.3 10^3/uL (0.8-4.8); Mean Corpuscular HGB Conc 32.6 g/dL (30.0-36.0); Mean Corpuscular Hemoglobin 30.2 pg (28.0-34.0); Mean Corpuscular Volume 92.8 fL (80-94); Mean Platelet Volume 10.8 fL (7.4-10.4); Monocytes # 1.3 10^3/uL (0.2-0.9); Neutrophils # 8.58 10^3/uL (1.8-7.7); Neutrophils % 73.6 %; Nucleated Red Blood Cells % 0 %; Platelet Count 248 10^3/cmm (130-400); Red Blood Count 4.43 10^6/uL (4.1-5.3); Red Cell Distribution Width 13.9 % (12.1-15.1); White Blood Count 11.6 10^3/uL (4.0-10.0)
[2020-11-21 05:59] LABS: Anion Gap 14.5 (5-19); Blood Urea Nitrogen 9 mg/dL (8-23); Calcium 8.7 mg/dL (8.5-10.5); Carbon Dioxide 24 mmol/L (22-29); Chloride 97 mmol/L (98-107); Glucose 152 mg/dL (65-115); Osmolality Calculated 274 mOsm/kg (285-295); Potassium 4.5 mmol/L (3.5-5.1); Sodium 131 mmol/L (136-145)
[2020-11-21 06:51] LABS: Glucose Point of Care 179 mg/dL (70-110)
[2020-11-21] MEDS: clopidogrel 75 mg Tablet PO (08:07)
[2020-11-21] MEDS: tamsulosin 0.4 mg Capsule PO (08:07)
[2020-11-21] MEDS: pantoprazole DR 40 mg Tablet PO (08:07)
[2020-11-21] MEDS: atorvastatin 40 mg Tablet 20 MG PO (08:07)
[2020-11-21] MEDS: cetirizine 10 mg Tablet PO (08:08)
[2020-11-21] MEDS: aspirin 81 mg EC Tablet PO (08:08)
[2020-11-21] MEDS: metoprolol tartrate 50 mg Tablet 25 MG PO (08:08)
[2020-11-21] MEDS: losartan 50 mg Tablet 100 MG PO (08:08)
[2020-11-21] MEDS: amlodipine 5 mg Tablet PO (08:08)
[2020-11-21] MEDS: montelukast sodium 10 mg Tablet PO (08:08)
--- NOTE | 2020-11-21 09:10 | PM.SDS ---
Short Stay Summary Providers Date of Admit/Discharge: 11/21/20 Attending Provider: Kishan Johnson MD Consults: 75-year-old male past medical history significant for severe peripheral vascular disease hypertension hyperlipidemia diabetes mellitus underwent peripheral angiogram for worsening of lifestyle limiting claudication of previously treated right leg. Patient few weeks ago underwent percutaneous intervention of right common, external iliac and proximal to distal SFA with good angiographic result. Patient did fine for couple of weeks after that he started noticing similar kind of heaviness cramps pain in the legs upon walking. He was scheduled to undergo peripheral angiogram of the left leg however since right leg got worse he decided to get it treated for it first. It is the reason yesterday he went through peripheral angiogram. He was noted to have ostial right SFA restenosis for heavily calcified lesion which was previously dilated with the balloon angioplasty. Rest of all vessel including common, external iliac and proximal to distal right SFA was patent with good angiographic runoff. Since right ostial SFA restenosis was the culprit we treated with 2.0 mm bur CSI atherectomy using multiple passes followed by 7.0 x 20 mm [place] balloon angioplasty. Excellent angiographic result was achieved. Good runoff was confirmed from common iliac to pedal arteries. Postprocedure patient denies any complaint. Left groin looks good no hematoma no bruising he is walking around without any difficulty. He is being discharged. Continue Plavix. Continue aspirin statin. Primary Care Provider: Pete Pope DO Chief Complaint: left peripheral HPI History of Present Illness Fidel Holliday is a 75 year old male Home Meds/Allergies Home Medications and Allergies Home Medications Medication Instructions Recorded Confirmed Type albuterol sulfate 90 mcg/actuation 2 inh INHALATION Q6H PRN 11/08/19 11/20/20 History breath activated powder inhaler cetirizine 10 mg capsule 10 mg PO DAILY cap 11/08/19 11/17/20 History fluticasone propionate 50 2 inh INHALATION DAILY PRN each 11/08/19 11/17/20 History mcg/actuation blister powder for inhalation insulin glargine 100 unit/mL (3 52 unit SUBCUT DAILY@2100 ml 11/08/19 11/17/20 History mL) subcutaneous pen losartan 100 mg tablet 100 mg PO DAILY 11/08/19 11/17/20 History montelukast 10 mg tablet 10 mg PO DAILY 11/08/19 11/17/20 History pantoprazole 40 mg tablet,delayed 40 mg PO DAILY 11/08/19 11/17/20 History release simvastatin 20 mg tablet 10 mg PO DAILY tab 11/08/19 11/17/20 History metoprolol tartrate 50 mg tablet 25 mg PO BID tab 08/28/20 11/17/20 History Probiotic 1 tab PO DAILY 08/31/20 10/26/20 History Vitamin D3 1 tab PO DAILY 08/31/20 10/26/20 History fluticasone propionate [Flonase See Rx Instructions .ROUTE .COMPLEX 08/31/20 11/17/20 History Allergy Relief] insulin aspart U-100 [Novolog 10 unit SUBCUT TIDWM 08/31/20 11/17/20 History Flexpen U-100 Insulin] amlodipine 5 mg PO DAILY 10/13/20 11/17/20 History Allergies Allergy/AdvReac Type Severity Reaction Status Date / Time No Known Allergies Allergy Verified 11/17/20 08:47 PFSH Acute PFSH: Medical History Bilateral carotid artery stenosis COPD (chronic obstructive pulmonary disease) Diabetes GERD (gastroesophageal reflux disease) Hearing loss History of left common carotid artery stent placement Hypertension PAD (peripheral artery disease) Peripheral vascular disease Peripheral vascular disease Seizure disorder Sleep apnea Surgical History H/O carotid endarterectomy H/O esophagogastroduodenoscopy H/O knee surgery History of back surgery S/P appendectomy Status post colonoscopy with polypectomy Status post laparoscopic cholecystectomy (12/01/19) Family History Other CAD (coronary artery disease) Cancer Dementia Diabetes Hyperlipidemia Hypertension Pacemaker Stroke Denies family history of Chronic kidney disease (CKD) Anesthesia complication Bleeding disorder Family history of premature coronary artery disease Lung disease Social History Smoking and tobacco status: former smoker Quit status (tobacco): has quit using tobacco Alcohol intake: current Alcohol intake frequency: holidays/special occasions only Vitals/I&O/Wt Last Vital Signs Temp 98.1 F 11/21/20 07:25 Pulse 75 11/21/20 07:25 Resp 12 11/21/20 07:25 BP 164/66 11/21/20 08:08 Pulse Ox 96 11/21/20 07:25 11/20/20 11/21/20 11/21/20 22:59 06:59 14:59 Intake Total 1300 / 1300 766.667 / 766.667 Output Total 1350 / 1350 300 / 1650 Balance -1350 / -1350 1000 / -350 766.667 / 766.667 Weight last 48 hrs Weight 190 lb Physical Exam Narrative: EXAM NARRATIVE: GENERAL: Patient is alert, awake and oriented x3. NECK: No jugular vein distension. HEENT: No cyanosis. No icterus. No pallor. HEART: Regular S1 and S2. No murmur, rub or gallop. LUNGS: Clear to auscultate bilaterally. ABDOMEN: Soft, nontender and nondistended. Positive bowel sounds. No guarding, rebound or tenderness. CENTRAL NERVOUS SYSTEM: Grossly nonfocal. EXTREMITIES: Lower extremities without edema bilaterally. Good palpable anterior posterior tibial pulse of the left. Hospital Course Discharge Summary As above SSS Data Data Completed and Pending: Pending at discharge Category Date Time Status ENGINEERING TECHNOLOGIST request for service Routin e Exams 11/20/20 10:00 Taken Discharge Plan Discharge Patient Disposition: Home Condition: Stable Prescriptions: Continued albuterol sulfate 90 mcg/actuation aerosol powdr breath activated 2 inh INHALATION Q6H PRN (Reason: breathing) RF: 0 fluticasone propionate 50 mcg/actuation blister with device 2 inh INHALATION DAILY PRN (Reason: Dry Nasal Passages) RF: 0 cetirizine 10 mg capsule 10 mg PO DAILY RF: 0 insulin glargine 100 unit/mL (3 mL) insulin pen 52 unit SUBCUT DAILY@2100 RF: 0 losartan 100 mg tablet 100 mg PO DAILY RF: 0 montelukast [Singulair] 10 mg tablet 10 mg PO DAILY RF: 0 pantoprazole 40 mg tablet,delayed release (DR/EC) 40 mg PO DAILY RF: 0 simvastatin 20 mg tablet 10 mg PO DAILY RF: 0 metoprolol tartrate 50 mg tablet 25 mg PO BID RF: 0 amlodipine 5 mg Tablet 5 mg PO DAILY RF: 0 clopidogrel 75 mg tablet 75 mg PO DAILY Qty: 90 RF: 0 aspirin [Adult Aspirin Regimen] 81 mg tablet,delayed release (DR/EC) 81 mg PO DAILY Qty: 90 RF: 5 fluticasone propionate [Flonase Allergy Relief] 50 mcg/actuation [place],Suspension See Rx Instructions .ROUTE .COMPLEX RF: 0 insulin aspart U-100 [Novolog Flexpen U-100 Insulin] 100 unit/mL (3 mL) insulin pen 10 unit SUBCUT TIDWM RF: 0 Probiotic 1 tab PO DAILY RF: 0 Vitamin D3 1 tab PO DAILY RF: 0 tamsulosin 0.4 mg Capsule 0.4 mg PO DAILY Qty: 30 RF: 0 Discharge Orders: Discharge Order (Routine); Ordered 11/21/20 Ordered By: Kishan Johnson Referrals: Kishan Johnson MD [Physician] - Mansi Moreno FNP [Nurse Practitioner] - Discharge Diet: Diabetic Discharge Activity: Increase activity as tolerated Patient Instructions: Peripheral Vascular Angioplasty (DC), Post Angiogram Home Care Instructions Activity Restrictions/Additional Instructions: Follow-up with Mansi Moreno in 7 days, follow-up with Dr. Johnson in 3 months Attestations Medical Necessity Statement*: Patient can be discharged home Time Spent in Patient Care*: less than 30 min Specific Discharge Activities: Specific discharge activities: educating patient Quality Metrics Clinical Quality Measures: During this hospital stay, did patient experience: None Coding Level of Care Code Established Pt Acute Staff Nurse Midwife for Carmelog Fwd Patient Type Established History Expanded Problem Focused Exam Expanded Problem Focused Medical Decision Making Moderate Complexity
== END 2020-11-21 10:17 | disposition home or self-care (01) ==
LOC: CCL 08:44 → ICU 11-21 08:13 → CSU 11-21 08:14
PROVIDERS: PCP Emergency Medicine Emergency Medical Services; Visit Provider Internal Medicine Cardiovascular Disease
DX: I70.201 Unspecified atherosclerosis of native arteries of extremities, right leg (principal); Z87.891 Personal history of nicotine dependence; E11.9 Type 2 diabetes mellitus without complications; I10 Essential (primary) hypertension; I25.10 Atherosclerotic heart disease of native coronary artery without angina pectoris; Z95.5 Presence of coronary angioplasty implant and graft; Z86.73 Personal history of transient ischemic attack (TIA), and cerebral infarction without residual deficits; Z79.82 Long term (current) use of aspirin; Z79.4 Long term (current) use of insulin; J44.9 Chronic obstructive pulmonary disease, unspecified; K21.9 Gastro-esophageal reflux disease without esophagitis; G47.30 Sleep apnea, unspecified; Z82.49 Family history of ischemic heart disease and other diseases of the circulatory system
CPT/HCPCS: 36415; 36416; 37225; 75625; 75716; 80048; 82962; 85025; 85610; 85730; 96372; C1724; C1725; C1769; C1887; C1894; J1644; J1815; J2250; J3010; J3490; J7030; Q0163; Q9967

== ENCOUNTER → 2020-11-28 11:41 | Outpatient (BNVA) | payer OTHER, MEDICARE, SELFPAY | PROVIDERS: PCP Emergency Medicine Emergency Medical Services; Visit Provider Nurse Practitioner Family | DX: I73.9 Peripheral vascular disease, unspecified (principal) | CPT/HCPCS: 80048 ==

== ENCOUNTER 2020-12-05 09:14 | Emergency (ER) | payer OTHER, MEDICARE, SELFPAY ==
[2020-12-05 09:16] VITALS: BP 155/62; PULSE 84; RESP 18; TEMP 36.6; O2SAT 98; BMI 27.2
--- NOTE | 2020-12-05 10:02 | XRR_ITS ---
PROCEDURE INFORMATION: Exam: XR Chest Exam date and time: 12/05/2020 10:04 AM Age: 75 years old Clinical indication: Cough TECHNIQUE: Imaging protocol: XR of the chest. Views: 1 view. COMPARISON: CR XR chest 1V portable [id number] 08/31/2020 8:33 AM FINDINGS: Lungs: Calcified granuloma is seen in the right upper lobe. The lungs are otherwise expanded and clear. No consolidation. Pleural spaces: Unremarkable. No pleural effusion. No pneumothorax. Heart/Mediastinum: Unremarkable. No cardiomegaly. Bones/joints: Unremarkable. Similar findings seen comparing to prior examination. XR/XR chest 1V portable [id number] IMPRESSION: No acute findings. Stable granulomas right upper lobe
--- NOTE | 2020-12-05 10:03 | ED_ITS ---
HPI - URI/Sore Throat General: Chief Complaint: Upper Respiratory Infection Stated Complaint: POSS SINUS INFECTION[facility] Time Seen by Provider: 12/05/20 09:17 Source: patient and family Mode of arrival: ambulatory Limitations: no limitations History of Present Illness: HPI Narrative: Patient is a nice 75-year-old male who presents to ED today along with his for complaints of nasal congestion, sinus pain/pressure, postnasal drainage, and a cough. Patient states symptoms have been present over the past few days. He does have a history of allergic rhinitis in which he treats with montelukast and cetirizine. He states he also uses Flonase regularly. Patient states he is having more pain and pressure than normal and feels like a lot of the drainage is going down the back of his throat causing his throat to feel sore. He feels like his cough is secondary to the postnasal drainage. He does not complain of chest pain, shortness of breath, difficulty breathing. No fevers. MD elicited complaint: cough, nasal congestion and sinus pain Pertinent past history: sinusitis and seasonal allergies Onset (ago): day(s) Consistency: constant Severity: moderate Description of mucous: clear Able to tolerate fluids by mouth: Yes Exacerbating factors: nothing Relieving factors: nothing Associated symptoms: Reports nasal congestion and sinus pain; Deny chills, chest pain, ear or mastoid pain, fever(s), headache(s), nausea or vomiting Treatments prior to arrival: other (normally takes allergy medication and intranasal steroids) Review of Systems Const: Denies: fever(s), chills, body aches, fatigue or malaise Eyes: Denies: change in vision, blurry vision, photophobia, eye discomfort, eye discharge, floaters or seeing flashes ENMT: Reports: throat pain, nasal discharge, nasal congestion, post nasal drip and sinus pain; Denies: hoarseness, oral sores, ear or mastoid pain, ear discharge, change in hearing, tinnitus or disequilibrium Card: Denies: chest pain Resp: Reports: productive cough and chest congestion; Denies: dyspnea, wheezing, stridor, pain on inspiration or hemoptysis GI: Denies: nausea or vomiting Musc: Denies: neck pain or back pain Skin/Breast: Denies: rash Neuro: Denies: headache(s) PFSH ED PFSH: Medical History Bilateral carotid artery stenosis COPD (chronic obstructive pulmonary disease) Diabetes GERD (gastroesophageal reflux disease) Hearing loss History of left common carotid artery stent placement Hypertension PAD (peripheral artery disease) Peripheral vascular disease Peripheral vascular disease Seizure disorder Sleep apnea Surgical History H/O carotid endarterectomy H/O esophagogastroduodenoscopy H/O knee surgery History of back surgery S/P appendectomy Status post colonoscopy with polypectomy Status post laparoscopic cholecystectomy (12/01/19) Family History Other CAD (coronary artery disease) Cancer Dementia Diabetes Hyperlipidemia Hypertension Pacemaker Stroke Denies family history of Chronic kidney disease (CKD) Anesthesia complication Bleeding disorder Family history of premature coronary artery disease Lung disease Social History Smoking and tobacco status: former smoker Quit status (tobacco): has quit using tobacco Alcohol intake: current Alcohol intake frequency: holidays/special occasions only Physical Exam Const: COMMON NORMALS: no acute distress, average body habitus, patient oriented x3, no limitations, healthy appearing, alert and well nourished GENERAL APPEARANCE: cooperative ORIENTATION/CONSCIOUSNESS: Yes awake, Yes oriented to person, Yes oriented to place and Yes oriented to time HENMT: COMMON NORMALS: normocephalic, atraumatic, hearing grossly normal bilaterally, external ears normal, EAC's normal, TM's normal bilaterally, Normal external nose present, moist oral mucous membranes, oropharynx normal, dentition normal and gingiva normal HEAD & SCALP: normal to inspection, normocephalic and atraumatic FACE & SINUS: sinus tenderness maxillary NOSE: Normal external nose present and Other nasal findings present (sounds congested) EXTERNAL EAR: Yes external ears normal EXTERNAL AUDITORY CANAL: EAC's normal TYMPANIC MEMBRANE: TM's normal bilaterally MOUTH: Normal oral and palatal mucosa present, lip normal and tongue normal THROAT: posterior oropharynx normal, tonsils normal and uvula midline Neck/C-Spine: COMMON NORMALS: full ROM and no lymphadenopathy Resp: COMMON NORMALS: normal respiratory effort and clear to auscultation bilaterally AUSCULTATION: clear to auscultation bilaterally Cardio: COMMON NORMALS: regular rate and regular rhythm RATE: regular rate RHYTHM: regular rhythm Neuro: COMMON NORMALS: patient oriented x3 SENSORIUM/ORIENTATION: Yes alert, Yes oriented to person, Yes oriented to place and Yes oriented to time Skin: COMMON NORMALS: no rashes or lesions noted GENERAL SKIN EXAM: no rashes or lesions noted Course Vital Signs: Vital signs: Vital Signs Temperature 97.9 F 12/05/20 09:16 Pulse Rate 84 12/05/20 09:16 Respiratory Rate 18 12/05/20 09:16 Blood Pressure 155/62 12/05/20 09:16 Pulse Oximetry 98 12/05/20 09:16 MDM - URI/Sore Throat Imaging Data^: CXR: Radiologist's impression: [address] [address] XRay Report Signed Patient: Fidel Holliday Unit #: [id number] : 1945 Age/Sex: 75 / M ADM Date: 12/05/20 Loc: ER Room/Bed: Attending Dr: Ordering Provider/Ordering MD: Jennifer Hurtado Date of Service: 12/05/20 Procedure(s): XR chest 1V portable [id number] Accession Number(s): [id number] Report Number: [id number] PROCEDURE INFORMATION: Exam: XR Chest Exam date and time: 12/05/2020 10:04 AM Age: 75 years old Clinical indication: Cough TECHNIQUE: Imaging protocol: XR of the chest. Views: 1 view. COMPARISON: CR XR chest 1V portable [id number] 08/31/2020 8:33 AM FINDINGS: Lungs: Calcified granuloma is seen in the right upper lobe. The lungs are otherwise expanded and clear. No consolidation. Pleural spaces: Unremarkable. No pleural effusion. No pneumothorax. Heart/Mediastinum: Unremarkable. No cardiomegaly. Bones/joints: Unremarkable. Similar findings seen comparing to prior examination. XR/XR chest 1V portable [id number] IMPRESSION: No acute findings. Stable granulomas right upper lobe Dictated By: Constantin Robison Signed By: Constantin Robison Signed Date/Time: 105 DD/ 1052 Discharge Plan Discharge Patient Disposition: Home Clinical Impression: Sinusitis Qualifiers: Sinusitis location: maxillary Chronicity: acute Recurrence: non-recurrent Qualified Code(s): J01.00 - Acute maxillary sinusitis, unspecified Condition: Stable Prescriptions: New levofloxacin 750 mg tablet 750 mg PO DAILY 5 Days Qty: 5 RF: 0 No Action albuterol sulfate 90 mcg/actuation aerosol powdr breath activated 2 inh INHALATION Q6H PRN (Reason: breathing) RF: 0 cetirizine 10 mg capsule 10 mg PO QPM RF: 0 losartan 100 mg tablet 100 mg PO QAM RF: 0 montelukast [Singulair] 10 mg tablet 10 mg PO QPM RF: 0 pantoprazole 40 mg tablet,delayed release (DR/EC) 40 mg PO QAM RF: 0 simvastatin 20 mg tablet 10 mg PO QPM RF: 0 metoprolol tartrate 50 mg tablet 25 mg PO BID RF: 0 gabapentin 300 mg capsule 300 mg PO BID 7 Days Qty: 14 RF: 0 fluticasone propionate [Flonase Allergy Relief] 50 mcg/actuation [place],Suspension 1 spray intranasal BID RF: 0 insulin aspart U-100 [Novolog Flexpen U-100 Insulin] 100 unit/mL (3 mL) insulin pen 10 unit SUBCUT TIDWM RF: 0 Probiotic 1 tab PO QPM RF: 0 Vitamin D3 1 tab PO QAM RF: 0 Lantus U-100 Insulin 100 unit/mL Solution 52 unit SUBCUT DAILY@21 RF: 0 clopidogrel 75 mg tablet 75 mg PO QAM RF: 0 aspirin 81 mg tablet,delayed release (DR/EC) 81 mg PO QAM RF: 0 Tylenol Extra Strength 500 mg Tablet 1,000 mg PO PRN RF: 0 tamsulosin 0.4 mg capsule 0.4 mg PO QAM RF: 0 amlodipine 10 mg tablet 10 mg PO BEDTIME RF: 0 ibuprofen 200 mg Tablet 200 mg PO PRN RF: 0 ipratropium bromide 21 mcg (0.03 %) spray,non-aerosol 1 spray INTRANASAL BID RF: 0 Multivitamin-Minerals Tablet 1 tab PO QAM RF: 0 Discharge Orders: Discharge ED (Routine); Ordered 12/05/20 Ordered By: Jennifer Hurtado Referrals: Pete Pope DO [Primary Care Provider] - Patient Instructions: Bronchitis (Acute) - Adult, Sinusitis (ED) Activity Restrictions/Additional Instructions: [facility] if symptoms do not seem to be improving. You may return to the emergency department for chest pain, shortness of breath, difficulty breathing, fevers, or any other concerns you may have. Hope you begin to feel better soon. Coding Level of Care Code ED Telegraphic Typewriter Operator for Katherine Fwd Exam Detailed
== END 2020-12-05 10:32 | disposition home or self-care (01) ==
PROVIDERS: Emergency Provider Physician Assistant; PCP Emergency Medicine Emergency Medical Services
DX: J01.00 Acute maxillary sinusitis, unspecified (principal); Z79.82 Long term (current) use of aspirin; Z79.4 Long term (current) use of insulin; J44.9 Chronic obstructive pulmonary disease, unspecified; E11.9 Type 2 diabetes mellitus without complications; I10 Essential (primary) hypertension; Z87.891 Personal history of nicotine dependence
CPT/HCPCS: 71045; 99282

== ENCOUNTER → 2021-10-09 08:22 | Outpatient (BNVA) | payer OTHER, SELFPAY | PROVIDERS: PCP Emergency Medicine Emergency Medical Services; Visit Provider Nurse Practitioner Family | DX: I73.9 Peripheral vascular disease, unspecified (principal); I10 Essential (primary) hypertension; Z87.891 Personal history of nicotine dependence | CPT/HCPCS: 99214 ==

== ENCOUNTER 2021-11-01 09:18 | Outpatient (RCR) | payer OTHER, SELFPAY | END 2021-11-24 23:59 | disposition home or self-care (01) | LOC: SPT 09:18 | PROVIDERS: PCP Emergency Medicine Emergency Medical Services; Referring Provider Emergency Medicine Emergency Medical Services; Visit Provider Emergency Medicine Emergency Medical Services | DX: R42 Dizziness and giddiness (principal) | CPT/HCPCS: 95992; 97162 ==

== ENCOUNTER 2021-11-13 07:10 | Outpatient (CLI) | payer OTHER, SELFPAY ==
--- NOTE | 2021-11-13 07:20 | USCV_ITS ---
Fidel Holliday Age: 76 Gender: M : 1945 Exam Date: 11/13/2021 07:40 Ordering Phys: Pete Pope DO Technologist: Exam Location: [facility] – [place] Indication: lt cca stent Risk Factors: Previous Vascular Surgery: Right Brachial BP: / Left Brachial BP: / Right Left Velocity (cm/s) Spectral Plaque Velocity (cm/s) Spectral Plaque Syst/Diast Broadening Syst/Diast Broadening 103.60/9.90 Prox CCA 71.70 / 5.50 102.50/7.70 Mid CCA 68.40 / 7.70 93.70/ 7.70 Hetro Distal CCA 68.40 / 13.20 147.60/23.30 Hetro Prox ICA 60.60 / 6.60 172.50/26.40 Hetro Mid ICA 133.40/ 20.90 188.00/18.60 Distal ICA 133.40/ 20.90 177.10 ECA 136.70 1.81 ICA/CCA 1.86 Antegrade Vertebral Antegrade 55.10/ 18.70 cm/s / cm/s Bi Subclavian Tri 104.7 108.8 0 0 FINDINGS Comparison: none available. Irregular plaque proximal right CCA and bifurcation. No stenosis on the right of significance. Left common carotid stent is patent. Variable waveform left ICA but patent , no stenosis. Bilateral antegrade vertebral arteries. CONCLUSIONS Bilateral ICA stenosis less than 50%. Patent left CCA stent. Dr. Tammy Bradley DO (Electronically Signed) Final Date: 13 November 2021 08:20 S
== END 2021-11-13 07:11 | disposition home or self-care (01) ==
LOC: RAD 07:11
PROVIDERS: PCP Emergency Medicine Emergency Medical Services; Visit Provider Emergency Medicine Emergency Medical Services
DX: I65.21 Occlusion and stenosis of right carotid artery (principal)
CPT/HCPCS: 93880

== ENCOUNTER → 2021-12-10 11:09 | Outpatient (BNVA) | payer OTHER, SELFPAY | PROVIDERS: PCP Emergency Medicine Emergency Medical Services; Visit Provider Internal Medicine Cardiovascular Disease | DX: I10 Essential (primary) hypertension (principal); I73.9 Peripheral vascular disease, unspecified; I45.2 Bifascicular block; I44.0 Atrioventricular block, first degree; R94.31 Abnormal electrocardiogram [ECG] [EKG]; J44.9 Chronic obstructive pulmonary disease, unspecified; E11.9 Type 2 diabetes mellitus without complications; Z87.891 Personal history of nicotine dependence; Z79.4 Long term (current) use of insulin; M79.89 Other specified soft tissue disorders | CPT/HCPCS: 93005; 99214 ==

== ENCOUNTER 2022-03-21 14:46 | Outpatient (CLI) | payer OTHER, SELFPAY ==
--- NOTE | 2022-03-21 15:00 | USCV_ITS ---
Fidel Holliday Age: 76 Gender: M : 1945 Exam Date: 03/21/2022 15:08 Ordering Phys: Mansi Moreno Technologist: WILLY Exam Location: [facility] [place]_ Indication: RLE PAIN HISTORY: Lower extremity pain. PROCEDURES: Venous duplex imaging was performed in only the right lower extremity. The following venous structures were evaluated: common femoral vein, profunda vein, proximal portion of the greater saphenous vein, superficial femoral vein, and the popliteal vein. In addition, the posterior tibial and peroneal trunk were evaluated. Serial compression, augmentation maneuvers, and spectral Doppler flow evaluation were performed. FINDINGS: No evidence of DVT seen in any vessel visualized at this time. CONCLUSIONS No evidence of right lower extremity DVT. Adebayo Lu MD (Electronically Signed) Final Date: 22 March 2022 09:52 S
== END 2022-03-21 14:47 | disposition home or self-care (01) ==
PROVIDERS: PCP Emergency Medicine Emergency Medical Services; Visit Provider Nurse Practitioner Family
DX: I73.9 Peripheral vascular disease, unspecified (principal); M79.604 Pain in right leg
CPT/HCPCS: 93971

== ENCOUNTER 2022-03-27 09:23 | Outpatient (CLI) | payer OTHER, SELFPAY ==
--- NOTE | 2022-03-27 09:30 | USCV_ITS ---
Fidel Holliday Age: 76 Gender: M : 1945 Exam Date: 03/27/2022 09:51 Ordering Phys: Mansi Moreno Technologist: SHANE Exam Location: [facility] – [place] Indication: Worsening symptoms in Rt Leg Risk Factors: DM Previous Vascular Surgery: Pt has had Plasty on vessels RIGHT LEFT BP: 152.0 / 50.00 BP: 159.0/ 50.00 0 0 Waveform Velocity (cm/s) Velocity (cm/s) Waveform Biphasic 83.5 Iliac Prox Monophasic 69.7 Iliac Mid Monophasic Iliac Distal 55.7 Monophasic 53.1 TIRE SETTER Monophasic 37.1 SFA Prox Monophasic 130.2 SFA Mid Monophasic 37.1 SFA Dist Monophasic 51.1 POP Monophasic 12.5 BUSINESS INTELLIGENCE REPORTING ANALYST Monophasic 112.2 DPA 0.4 MYRTLE FINDINGS Rt BUSINESS INTELLIGENCE REPORTING ANALYST 50 Rt DP moderate to heavy plaque in the iliac and femoral artery on the right side. Resting MYRTLE of 0.4 CONCLUSIONS 1. Abnormal resting MYRTLE on the right side, suggesting severe peripheral artery disease, possibly multisegmental Compared to the study from 08/14/2020, the dorsalis pedis and posterior tibial arteries appear to be patent now. Dr Lois Last MD [facility] (Electronically Signed) Final Date: 27 March 2022 16:57 S
== END 2022-03-27 09:24 | disposition home or self-care (01) ==
LOC: RAD 09:23
PROVIDERS: PCP Emergency Medicine Emergency Medical Services; Visit Provider Nurse Practitioner Family
DX: I73.9 Peripheral vascular disease, unspecified (principal); E11.9 Type 2 diabetes mellitus without complications
CPT/HCPCS: 93926

== ENCOUNTER 2022-04-11 06:00 | Outpatient (RCR) | payer OTHER, SELFPAY | END 2022-04-26 23:59 | disposition home or self-care (01) | LOC: SPT 06:00 | PROVIDERS: PCP Emergency Medicine Emergency Medical Services; Visit Provider Emergency Medicine Emergency Medical Services | DX: H81.4 Vertigo of central origin (principal) | CPT/HCPCS: 97110; 97162 ==

== ENCOUNTER 2022-04-27 06:00 | Outpatient (RCR) | payer OTHER, SELFPAY | END 2022-05-15 23:59 | disposition home or self-care (01) | LOC: SPT 06:00 | PROVIDERS: PCP Emergency Medicine Emergency Medical Services; Visit Provider Emergency Medicine Emergency Medical Services | DX: H81.90 Unspecified disorder of vestibular function, unspecified ear (principal); H81.4 Vertigo of central origin | CPT/HCPCS: 97110; 97112 ==

== ENCOUNTER 2022-05-21 07:57 | Outpatient (CLI) | payer OTHER, SELFPAY ==
--- NOTE | 2022-05-21 08:00 | CT_ITS ---
WS: [id number] CT ANGIOGRAPHY OF THE ABDOMINAL AORTA WITH RUNOFF TO THE ANKLES HISTORY: MYRTLE of 0.4 right leg, claudication, prior RIGHT leg angioplasty. TECHNIQUE: Arterial injection is performed during imaging to evaluate the aorta and runoff vessels to the ankles. MIP and volume rendering imaging has also been performed. All images are reviewed. All C T scans at [facility] use at least one of these dose optimization techniques: automated exposu re control; mA and/or kV adjustment per patient size (includes targeted exams where dose is matched t o clinical indication); or iterative reconstruction. Contrast: Omnipaque 350; 95 mL IV. DLP: 917.88 mGy.cm COMPARISON: 09/16/2020 Abdominal aorta: Heavy calcified plaque throughout the abdominal aorta. No aneurysm. Moderate stenosi s due to multilevel of the renal arteries. High-grade stenosis origin of the celiac axis. Patent orig in of the SMA. Mid to distal SMA contains increasing calcified plaque in the lumen is narrowed. Renal arteries are patent with atherosclerotic plaque. PAMELA is patent. RIGHT lower extremity arterial system: Extensive calcified plaque with luminal narrowing extends into the common iliac artery. Multifocal areas of stenosis near 50%. Calcified plaque continues into the internal and external iliac arteries. Internal iliac artery is occluded with distal reconstitution. E xternal iliac artery and femoral artery patent. Deep profunda and SFA bifurcation is intact. High-gra de stenosis with intimal thickening and calcified plaque involving entire SFA. There may be areas of complete occlusion with reconstitution. Very little flow was noted in the distal SFA to popliteal art jesusita. This represents progression of disease. Reconstitution into a small popliteal artery. Anterior t ibial artery is nonenhancing. Calcified plaque in the posterior tibial and peroneal arteries. Poor ru noff to the ankle. LEFT lower extremity arterial system: Moderate stenosis throughout the common iliac artery. Internal iliac artery is occluded. The external iliac artery moderately diseased with no high-grade stenosis. Increasing plaque proximal superficial femoral artery and deep profunda. Greater than 50% stenosis at the origin of the SFA. There is extensive plaque and multifocal areas of stenosis and luminal narrow ing. There may be areas of complete occlusion to the popliteal artery. Very heavily diseased. Intermi ttent flow in the popliteal artery. Small caliber artery runoff to the ankle. There may be areas of s tenosis. Plaque is obscuring the lumen. Atelectasis with bronchiectasis involving a segment of the LEFT lower lobe. Liver and spleen are nega tive. No adrenal mass. Atrophied pancreas. No duct dilatation. No renal obstruction. No GI tract obst ruction. No adenopathy or free fluid. L4 anterolisthesis by 6 mm and bilateral pars defects. CT/CT angio abd aorta runof [id number] IMPRESSION: 1. Progression of peripheral arterial disease with multifocal areas of stenosi s and occlusion since 09/18/2020. 2. Extensive high-grade stenosis throughout the RIGHT SFA with areas of comple te occlusion. 3. Moderate stenosis LEFT common iliac artery. 4. Extensive atherosclerotic plaque continues through the LEFT external iliac artery. Increasing plaque with multifocal areas of stenosis throughout the LEFT SFA to popliteal artery. 5. Bilateral small caliber vessel runoff to the ankles. Segments of the arteri es below the knee. Difficult to evaluate accurately. This is due to the small c aliber vessels and calcified plaque. 6. Severe stenosis with near complete occlusion origin of the celiac axis. 7. Moderate calcified plaque in the mid to distal SMA. 8. Moderate stenosis abdominal aorta but no aneurysm.
[2022-05-21 08:30] LABS: Blood Urea Nitrogen 12 mg/dL (8-23)
[2022-05-21] MEDS: iohexol 350 mg/mL 100 mL Btl IV (08:46)
== END 2022-05-21 07:58 | disposition home or self-care (01) ==
LOC: RAD 07:58
PROVIDERS: PCP Emergency Medicine Emergency Medical Services; Visit Provider Nurse Practitioner Family
DX: I73.9 Peripheral vascular disease, unspecified (principal); I70.0 Atherosclerosis of aorta; I77.1 Stricture of artery
CPT/HCPCS: 75635; 82565; 84520

== ENCOUNTER → 2022-05-31 10:21 | Outpatient (BNVA) | payer OTHER, SELFPAY | PROVIDERS: PCP Emergency Medicine Emergency Medical Services; Visit Provider Internal Medicine Cardiovascular Disease | DX: I10 Essential (primary) hypertension (principal); I73.9 Peripheral vascular disease, unspecified; Z87.891 Personal history of nicotine dependence | CPT/HCPCS: 99214 ==

== ENCOUNTER → 2022-09-24 14:53 | Outpatient (BNVA) | payer OTHER, SELFPAY | PROVIDERS: PCP Emergency Medicine Emergency Medical Services; Visit Provider Nurse Practitioner Family | DX: I73.9 Peripheral vascular disease, unspecified (principal); Z87.891 Personal history of nicotine dependence | CPT/HCPCS: 99213 ==

== ENCOUNTER → 2022-10-23 13:20 | Outpatient (BNVA) | payer OTHER, SELFPAY | PROVIDERS: PCP Emergency Medicine Emergency Medical Services; Visit Provider Internal Medicine | DX: I73.9 Peripheral vascular disease, unspecified (principal); Z98.890 Other specified postprocedural states; E11.621 Type 2 diabetes mellitus with foot ulcer; Z79.4 Long term (current) use of insulin; L97.519 Non-pressure chronic ulcer of other part of right foot with unspecified severity; I10 Essential (primary) hypertension; J44.9 Chronic obstructive pulmonary disease, unspecified; Z87.891 Personal history of nicotine dependence; Z79.82 Long term (current) use of aspirin | CPT/HCPCS: 99214 ==

== ENCOUNTER 2022-11-20 13:25 | Outpatient (CLI) | payer OTHER, SELFPAY ==
[2022-11-20 15:04] LABS: Basophils # 0.1 10^3/uL (0.0-0.1); Basophils % 0.7 %; Eosinophils # 0.5 10^3/uL (0.0-0.8); Eosinophils % 4.3 %; Hematocrit 35.9 % (42.0-52.0); Hemoglobin 12.2 g/dL (11.7-16.6); Lymphocytes # 1.5 10^3/uL (0.8-4.8); Lymphocytes % 14.4 %; Mean Corpuscular Hemoglobin 31.4 pg (28.0-34.0); Mean Corpuscular Volume 92.5 fl (80-94); Mean Platelet Volume 10.1 fL (7.4-10.4); Monocytes # 1.3 10^3/uL (0.2-0.9); Monocytes % 12.1 %; Neutrophils # 7.19 10^3/uL (1.8-7.7); Neutrophils % 68.2 %; Nucleated Red Blood Cells % 0 %; Platelet Count 331 10^3/cmm (130-400); Red Blood Count 3.88 10^6/uL (4.1-5.3); White Blood Count 10.5 10^3/uL (4.0-10.0)
[2022-11-20 15:24] LABS: INR 1.02 (0.83-1.21); Prothrombin Time (Patient) 13.8 Seconds (12.0-15.1)
[2022-11-20 15:30] LABS: Anion Gap 14.4 (5-19); Blood Urea Nitrogen 12 mg/dL (8-23); Calcium 9.3 mg/dL (8.5-10.5); Carbon Dioxide 26 mmol/L (22-29); Chloride 91 mmol/L (98-107); Glucose 128 mg/dL (65-115); Osmolality Calculated 265 mOsm/kg (285-295); Potassium 4.4 mmol/L (3.5-5.1); Sodium 127 mmol/L (136-145)
== END 2022-11-20 13:26 | disposition home or self-care (01) ==
LOC: LAB 13:53
PROVIDERS: PCP Emergency Medicine Emergency Medical Services; Visit Provider Internal Medicine
DX: I73.9 Peripheral vascular disease, unspecified (principal); I10 Essential (primary) hypertension
CPT/HCPCS: 36415; 80048; 85025; 85610

== ENCOUNTER 2022-11-21 05:46 | Outpatient (CLI) | payer OTHER, SELFPAY ==
[2022-11-21] VITALS (21 sets, daily range): BP systolic 80–141; BP diastolic 38–61; PULSE 56–94; RESP 8–27; TEMP 36.9; O2SAT 93–96; BMI 27.2
--- NOTE | 2022-11-21 06:00 | XACV_ITS ---
Ht: 178 cm Wt: 86 kg BSA: 2.08 m2 Any Known Allergies: No known allergies Gender: Male : 1945 Exam Type: Invasive Peripheral Vascular Procedure(s): Procedure Description: Diagnostic procedure Procedure Description: Peripheral Cath Diagnostic Procedure Procedure Description: Abdominal aortic angiography Procedure Description: Lower extremities' angiography Procedure Description: Peripheral vascular Intervention Procedure Description: PV Balloon Procedure Description: PV Atherectomy Procedure Description: Miscellaneous Procedure Description: ACT Exam Priority: Routine Abdominal Diagnostic Findings Distal abdominal aorta: Patent. Lower Extremity Diagnostic Findings INDICATION: Non healing right foot ulcer/ Severe peripheral artery disease. Right lower extremity findings: Right common iliac artery is patent. Right external iliac artery is patent. Right common femoral artery is patent. Patient has high bifurcation of the profunda and SFA. Profunda is patent. SFA has diffuse severe disease from ostium to mid segment. Distal SFA is totally occluded with reconstitution of popliteal artery via collaterals. TP segment is patent. Patient has three-vessel runoff to the foot.. Left lower extremity: Left common iliac artery is patent. Left external iliac artery is patent. Left common femoral artery is a calcified vessel but is patent. Access was obtained in it. Runoff of left leg was not performed.. Right Mid-longitudinal Superficial Femoral Artery: 70% stenosis. Lower Extremity Interventional Findings Right Mid-longitudinal Superficial Femoral Artery: 100% stenosis treated with AB [place] 35 RABIES INSPECTOR Catheter [id number] and AB ARMADA 35 OTW [id number]. Procedure detail: After performing peripheral angiogram we decided to intervene on right lower extremity. IV heparin was administered to maintain anticoagulation. Using a seeker support catheter and Glidewire we crossed totally occluded mid to distal SFA and was put in popliteal artery. Through this a seeker support catheter Glidewire was switched to a [employer] wire for arthrectomy. Multiple runs of orbital atherectomy were performed from proximal to distal SFA. We then proceeded with balloon angioplasty of mid to distal SFA with 5.0 x 250 mm balloon. This was followed by proximal vessel balloon angioplasty with same balloon. There was an area of underexpansion in the proximal vessel. We performed balloon angioplasty with 6.0 x 100 mm balloon. Patient had faith of flow through SFA and final angiogram showed brisk flow. Patient left the Hand Paint Mixer in a stable condition. Conclusions Severe right lower extremity peripheral artery disease with total occlusion of mid to distal SFA . S/p successful revascularization with orbital arthrectomy and balloon angioplasty. Right Mid-longitudinal Superficial Femoral Artery was treated with two Balloon. Recommendations Dual antiplatelet therapy with aspirin and Plavix. Continue following with wound care clinic. Outpatient cardiology follow-up in 2 to 4 weeks. Hemodynamic Data Phase:Rest AO : 139.0 / 48.0 ( 80.0 ) @ 9:00:00 AM 90.0 / 55.0 ( 72.0 ) @ 9:10:00 AM 93.0 / 54.0 ( 73.0 ) @ 9:15:00 AM 115.0 / 46.0 ( 72.0 ) @ 9:23:00 AM 107.0 / 47.0 ( 70.0 ) @ 9:37:00 AM 122.0 / 49.0 ( 77.0 ) @ 9:56:00 AM Access Site Site: Left Femoral artery Sheath Size: 6 Fr Hemost... Method: Suture Hemost... Success: Successful Procedure Details Findings Procedure Consent Obtained. Admit Source: Out Patient. Pre-Procedure Time Out. Identified patient by full name and date of as verbalized by the patient/guarantor. Does the consent match the physician's order: Yes. Accurate & Complete Informed Consent: Yes. Inpatient/Outpatient History & Physical on Chart: Yes. If H&P is completed, is and addenduem needed: No; If yes, is the addendum complete: N/A. Visualize and Verify Site with Patient/Guarantor: N/A. Relevant Radiology Images available: Yes. The risks, benefits, and alternatives of sedation and/or procedure were discussed by physician. The patient agrees to continue. Procedure started. PERRLA. Strong, equal hand cyber security instructor bilaterally. Lungs clear x 5 lobes. IV Site on Arrival: 20 gauge in the right anticubital. IV Fluids: 0.9% NaCl at KVO. 0 mL infused prior to farm laborer. Pre Procedural Pulses: bilateral posterior tibial was Doppled. Pre Procedural Pulses: bilateral dorsalis pedis was Doppled. Pre Procedural Pulses: bilateral radial was 1+. Oxygen started at 2liters/min via nasal canula. bilateral groins was prepped with chloroprep then draped in the usual sterile fashion. Physician notified. Baseline sample Acquired. HR: 71 BPM. Physician arrived. Physician scrubbed in. Time out performed with cath team. Lidocaine 1% infiltrated to the left groin. An attempt to gain access to the left femoral artery was unsuccessful. Manual pressure was held as needed to stop the bleeding. Ultrasound requested by Dr to assist in access. Arterial access obtained with micropuncture set. Hand injection perfomed. A 5FrFr UF catheter in over wire. Abdominal aortogram performed in STEELE @ 10 mL/sec for a total of 30 mL. Glidewire inserted. UF out over glidewire. 6F Short sheath exchanged for 6F flexor sheath. Right common femoral selected and arteriogram with runoff performed @ 10 mL/sec for a total of 30 mL. Seeker inserted over the glidewire. Seeker seated in popliteal artery. Viper wire in through seeker. Seeker out over viper wire. Athrectomy device Diamondback 360 inserted over viper wire. 1.50mm solid 145 cm. Athrectomy run of Right SFA performed. Athrectomy device removed. Seeker inserted over the viper wire. Viper wire out. Hand injection in DSA through seeker to help better visialize below the knee artery. Glidewire in through seeker. Seeker out over glidewire. Balloon inserted over the wire to the superficial femoral. Inflation number : 1 A AB [place] 35 RABIES INSPECTOR Catheter [id number] was prepped and advanced across the Superficial Femoral, Right , then inflated to 8 JAVIER for 1:31 seconds. Inflation number: 2 The AB [place] 35 RABIES INSPECTOR Catheter [id number] was reinflated across the Superficial Femoral, Right, to 8 JAVIER for 1:28 seconds. Inflation number: 3 The AB [place] 35 RABIES INSPECTOR Catheter [id number] was reinflated across the Superficial Femoral, Right, to 8 JAVIER for 1:27 seconds. Balloon out over wire. Right common femoral selected and arteriogram with runoff performed @ 10 mL/sec for a total of 30 mL. Flexor dilator in over wire. Dilator out over wire. Balloon inserted over the wire to the superficial femoral. Inflation number : 4 A AB ARMADA 35 OTW [id number] was prepped and advanced across the Superficial Femoral, Right , then inflated to 6 JAVIER for 1:02 seconds. Inflation number: 5 The AB ARMADA 35 OTW [id number] was reinflated across the Superficial Femoral, Right, to 5 JAVIER for 0:47 seconds. Balloon out. Right common femoral selected and arteriogram with runoff performed @ 10 mL/sec for a total of 30 mL. ACT drawn. Results 262 seconds. Therapeutic limits - pre-heparin administration 90-150 seconds and monitoring heparin during a vascular procedure >250 seconds. Exchanging 6F flexor for short sheath. Glidewire out. A Suture was successful obtaining hemostatsis at the Left Femoral artery insertion site. PERRLA. Strong, equal hand cyber security instructor bilaterally. No VTE prophylaxis required. Post-op diagnosis: totally occluded SFA, status post angioplasty and athrectomy of R SFA. Medication's Wasted: Nitro = 49.7 mL. Medication's Wasted: Heparin = 200 units. Total IV fluids: 120 mL. Complications: none. Estimated blood loss: 5mL-10mL. Responsiveness - Normal response to verbal stimuli; alert and oriented, PERRLA. Airway - Unaffected, no intervention required; spontaneous ventilation. Circulation: W/N/L, pulses unchanged. Nausea/Vomiting: No. Procedure completed. Patient transferred by bed to 1st floor. Vital chart was stopped. Procedure Medications Start: 7:45 AM Stop: 7:45 AM Medication: Versed Amount: 1 mg Route: I.V. Start: 7:45 AM Stop: 7:45 AM Medication: Fentanyl Amount: 50 mcg Route: I.V. Start: 7:58 AM Stop: 7:58 AM Medication: Versed Amount: 1 mg Route: I.V. Start: 8:13 AM Stop: 8:13 AM Medication: Versed Amount: 1 mg Route: I.V. Start: 8:16 AM Stop: 8:16 AM Medication: Heparin Amount: 4000 units Route: I.V. Start: 8:32 AM Stop: 8:32 AM Medication: Fentanyl Amount: 25 mcg Route: I.V. Start: 8:45 AM Stop: 8:45 AM Medication: Heparin Amount: 2000 units Route: I.V. Start: 8:52 AM Stop: 8:52 AM Medication: Fentanyl Amount: 25 mcg Route: I.V. Start: 8:55 AM Stop: 8:55 AM Medication: Versed Amount: 1 mg Route: I.V. Start: 9:04 AM Stop: 9:04 AM Medication: Heparin Amount: 1000 units Route: I.V. Start: 9:05 AM Stop: 9:05 AM Medication: Nitrogylcerin Amount: 300 mcg Route: I.A. Start: 9:18 AM Stop: 9:18 AM Medication: Plavix Amount: 300 mg Route: P.O. I, the attending physician, have reviewed and verified all procedure medications. Yes, all medications given per verbal order History/Risk Factors Hypertension: Yes Dyslipidemia: No Peripheral Arterial Disease (PAD): Yes Obesity: No Tobacco Use: Former Prior Interventions PCI: No CABG: No Valve Surgery: No Report Signatures Finalized by Deniz Buckley MD on 11/24/2022 03:56 PM
[2022-11-21 06:33] LABS: Basophils # 0.1 10^3/uL (0.0-0.1); Basophils % 0.6 %; Eosinophils # 0.5 10^3/uL (0.0-0.8); Eosinophils % 5.7 %; Hematocrit 35.2 % (42.0-52.0); Lymphocytes # 1.5 10^3/uL (0.8-4.8); Lymphocytes % 17.3 %; Mean Corpuscular HGB Conc 34.1 g/dL (30.0-36.0); Monocytes # 1.1 10^3/uL (0.2-0.9); Monocytes % 13.4 %; Neutrophils # 5.32 10^3/uL (1.8-7.7); Neutrophils % 62.6 %; Nucleated Red Blood Cells % 0 %; Platelet Count 306 10^3/cmm (130-400); Red Blood Count 3.87 10^6/uL (4.1-5.3); Red Cell Distribution Width 12.8 % (12.1-15.1); White Blood Count 8.5 10^3/uL (4.0-10.0)
[2022-11-21 06:47] LABS: Anion Gap 13.4 (5-19); Blood Urea Nitrogen 11 mg/dL (8-23); Calcium 9.2 mg/dL (8.5-10.5); Carbon Dioxide 25 mmol/L (22-29); Chloride 86 mmol/L (98-107); Glucose 285 mg/dL (65-115); Osmolality Calculated 260 mOsm/kg (285-295); Potassium 4.4 mmol/L (3.5-5.1); Sodium 120 mmol/L (136-145)
[2022-11-21] MEDS: diphenhydrAMINE 50 mg Capsule PO (06:50)
[2022-11-21] MEDS: aspirin 325 mg Tablet PO (06:50)
--- NOTE | 2022-11-21 07:41 | W.PM.OPSUD ---
Surgery/Procedure H&P Update DATE OF PROCEDURE: November 21, 2022 DATE H&P PERFORMED: 10/23/22 H&P UPDATE INFORMATION: I have reviewed H&P completed within last 30 days, I have examined patient prior to procedure and Changes to prior documentation as noted here CHANGES TO PREVIOUS DOCUMENTATION: Patient has chronic hyponatremia and sodium level is significantly low today. I discussed all options,he is asymptomatic and wants to proceed with the procedure. PREOP DIAGNOSIS: Non healing right foot ulcer/ Severe peripheral artery disease PRIMARY INDICATION FOR PROCEDURE: Non healing right foot ulcer/ Severe peripheral artery disease PLANNED PROCEDURE: Operation Date: 11/21/22 07:00 Proposed Procedures p PERIP ANGIOGRAM 64421,R94.39(Not Applicable) - Deniz Buckley M.D Possible percutaneous intervention PATIENT REASSESSED PRIOR TO SEDATION, WITH NO CHANGE NOTED: Yes PHYSICAL EXAM: alert, oriented x 3, clear to auscultation bilaterally and regular rate & rhythm AIRWAY EVAL/ANESTHESIA PLAN: normal airway, ASA III, Local Anesthesia, Risks, benefits & alternatives of sedation and/or procedure discussed and Patient agrees to continue as planned ADDITIONAL INFORMATION: Moderate sedation
[2022-11-21 08:36] LABS: Glucose Point of Care 287 mg/dL (70-110)
--- NOTE | 2022-11-21 10:12 | PC.NURSE ---
Patient arrived via bed around 0930am from [facility]. Patient has a left arterial sheath in place connected to a pressure bag. No hematoma formation or bleeding at site. Patient and family oriented to room and call james. Nurse educated on activity restrictions and will continue to monitor q15m.
[2022-11-21 11:55] LABS: Glucose Point of Care 290 mg/dL (70-110)
[2022-11-21] MEDS: insulin lispro 100 unit/1 mL SUBCUT ×3 (12:03→20:41)
[2022-11-21 12:42] LABS: Partial Thromboplastin Time 49.7 SECONDS (23.9-36.7)
[2022-11-21 12:46] LABS: Blood Urea Nitrogen 10 mg/dL (8-23); Carbon Dioxide 24 mmol/L (22-29); Chloride 87 mmol/L (98-107); Glucose 294 mg/dL (65-115); Osmolality Calculated 260 mOsm/kg (285-295); Sodium 120 mmol/L (136-145)
[2022-11-21 13:04] LABS: Anion Gap 13.7 (5-19); Potassium 4.7 mmol/L (3.5-5.1)
--- NOTE | 2022-11-21 13:49 | PC.NURSE ---
Sheath pulled and pressure applied for 20min. No hematoma present, dressing applied. Nurse will continue to monitor.
[2022-11-21] MEDS: montelukast sodium 10 mg Tablet PO (16:41)
[2022-11-21 16:48] LABS: Glucose Point of Care 183 mg/dL (70-110)
[2022-11-21 19:32] LABS: Glucose Point of Care 193 mg/dL (70-110)
[2022-11-21] MEDS: atorvastatin 40 mg Tablet 20 MG PO (20:26)
[2022-11-21] MEDS: pregabalin 50 mg Capsule PO (20:28)
[2022-11-22] VITALS (40 sets, daily range): BP systolic 117–156; BP diastolic 48–69; PULSE 79–111; RESP 7–26; TEMP 36.8–36.9; O2SAT 90–98
[2022-11-22 03:23] LABS: Basophils # 0.1 10^3/uL (0.0-0.1); Basophils % 0.4 %; Eosinophils # 0.2 10^3/uL (0.0-0.8); Eosinophils % 1.4 %; Hematocrit 35.8 % (42.0-52.0); Lymphocytes # 0.9 10^3/uL (0.8-4.8); Lymphocytes % 7.6 %; Mean Corpuscular HGB Conc 33.5 g/dL (30.0-36.0); Mean Corpuscular Hemoglobin 30.6 pg (28.0-34.0); Mean Corpuscular Volume 91.3 fl (80-94); Mean Platelet Volume 10.5 fL (7.4-10.4); Monocytes # 1.2 10^3/uL (0.2-0.9); Monocytes % 10.8 %; Neutrophils # 8.94 10^3/uL (1.8-7.7); Neutrophils % 79.5 %; Nucleated Red Blood Cells % 0 %; Platelet Count 294 10^3/cmm (130-400); Red Blood Count 3.92 10^6/uL (4.1-5.3); Red Cell Distribution Width 12.9 % (12.1-15.1); White Blood Count 11.3 10^3/uL (4.0-10.0)
[2022-11-22 03:49] LABS: Anion Gap 16.5 (5-19); Blood Urea Nitrogen 12 mg/dL (8-23); Calcium 9.1 mg/dL (8.5-10.5); Carbon Dioxide 24 mmol/L (22-29); Chloride 90 mmol/L (98-107); Glucose 188 mg/dL (65-115); Osmolality Calculated 267 mOsm/kg (285-295); Potassium 4.5 mmol/L (3.5-5.1); Sodium 126 mmol/L (136-145)
[2022-11-22] MEDS: pantoprazole DR 40 mg Tablet PO (05:34)
[2022-11-22] MEDS: tamsulosin 0.4 mg Capsule PO (05:34)
[2022-11-22 06:02] LABS: Glucose Point of Care 164 mg/dL (70-110)
[2022-11-22 06:23] LABS: Glucose Point of Care 278 mg/dL (70-110)
--- NOTE | 2022-11-22 07:29 | PM.DCS ---
Discharge Providers Date of Admission: 11/21/22 09:47 Date of Discharge: November 22, 2022 Attending Provider at Admission: Deniz Buckley MD Attending Provider at Discharge: Deniz Buckley M.D Primary Care Provider: Pete Pope DO Reason for Visit Reason for Visit: R94.39 Brief History: 77-year-old man with past medical history of peripheral artery disease, diabetes who has nonhealing right foot ulcer and has been referred for revascularization attempt of right lower extremity. On day of procedure, his sodium level was significantly low at 120. However he has chronic hyponatremia. He is asymptomatic. All options, risks and benefits discussed with patient and family Hospital Course Hospital Course Peripheral angiogram demonstrated severe peripheral artery disease of right lower extremity with severe stenosis of ostial to mid SFA and then total occlusion with reconstitution of popliteal artery via collaterals. He underwent successful revascularization of right SFA with balloon angioplasty and orbital arthrectomy. Patient was observed overnight and received IV fluids. Today his sodium level has improved to 126. Patient feels well. He will be discharged home on 2 antiplatelet therapy and with close follow-up with cardiology. Physical Exam Narrative: GENERAL: Patient is alert, awake and oriented x3. [] NECK: No jugular vein distension. [] HEENT: No cyanosis. No icterus. No pallor. [] HEART: Regular S1 and S2. No murmur, rub or gallop. [] LUNGS: Clear to auscultate bilaterally. [] CENTRAL NERVOUS SYSTEM: Grossly nonfocal. [] EXTREMITIES: Lower extremities are warm with palpable pulses on right lower extremity. No access site complications. 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 request for service Routine Exams 11/21/22 06:00 Taken Laboratory Results WBC 11.3 10^3/uL (4.0-10.0) H 11/22/22 02:00 RBC 3.92 10^6/uL (4.1-5.3) L 11/22/22 02:00 Hgb 12.0 g/dL (11.7-16.6) 11/22/22 02:00 Hct 35.8 % (42.0-52.0) L 11/22/22 02:00 MCV 91.3 fl (80-94) 11/22/22 02:00 MCH 30.6 pg (28.0-34.0) 11/22/22 02:00 MCHC 33.5 g/dL (30.0-36.0) 11/22/22 02:00 RDW 12.9 % (12.1-15.1) 11/22/22 02:00 Plt Count 294 10^3/cmm (130-400) 11/22/22 02:00 MPV 10.5 fL (7.4-10.4) H 11/22/22 02:00 Neut % (Auto) 79.5 % 11/22/22 02:00 Lymph % (Auto) 7.6 % 11/22/22 02:00 Hooker % (Auto) 10.8 % 11/22/22 02:00 Eos % (Auto) 1.4 % 11/22/22 02:00 Baso % (Auto) 0.4 % 11/22/22 02:00 Neut # (Auto) 8.94 10^3/uL (1.8-7.7) H 11/22/22 02:00 Lymph # (Auto) 0.9 10^3/uL (0.8-4.8) 11/22/22 02:00 [place]er # (Auto) 1.2 10^3/uL (0.2-0.9) H 11/22/22 02:00 Eos # (Auto) 0.2 10^3/uL (0.0-0.8) 11/22/22 02:00 Baso # (Auto) 0.1 10^3/uL (0.0-0.1) 11/22/22 02:00 Nucleated RBC % (auto) 0 % 11/22/22 02:00 Nucleated RBCs # 0.0 /100WBC 11/22/22 02:00 APTT 49.7 SECONDS (23.9-36.7) H 11/21/22 12:02 Sodium 126 mmol/L (136-145) L 11/22/22 02:00 Potassium 4.5 mmol/L (3.5-5.1) 11/22/22 02:00 Chloride 90 mmol/L (98-107) L 11/22/22 02:00 Carbon Dioxide 24 mmol/L (22-29) 11/22/22 02:00 Anion Gap 16.5 (5-19) 11/22/22 02:00 BUN 12 mg/dL (8-23) 11/22/22 02:00 Creatinine 0.9 mg/dL (0.7-1.2) 11/22/22 02:00 GFR Calculation Not Reportable 11/22/22 02:00 Glucose 188 mg/dL (65-115) H 11/22/22 02:00 POC Glucose 278 mg/dL (70-110) H 11/22/22 06:08 Calculated Osmolality 267 mOsm/kg (285-295) L 11/22/22 02:00 Calcium 9.1 mg/dL (8.5-10.5) 11/22/22 02:00 Vitals Last Vital Signs Temp 98.4 F 11/22/22 04:54 Pulse 90 11/22/22 04:54 Resp 19 H 11/22/22 04:54 BP 156/69 11/22/22 04:54 Pulse Ox 98 11/22/22 04:54 O2 Del Method Room Air 11/22/22 04:54 Discharge Plan Discharge Patient Disposition: Home Health Service Prescriptions: New Plavix 75 mg tablet 75 mg PO DAILY Qty: 90 0RF Continued albuterol sulfate 90 mcg/actuation aerosol powdr breath activated 2 inh INHALATION Q6H PRN (Reason: breathing) cetirizine 10 mg capsule 10 mg PO QPM losartan 100 mg tablet 100 mg PO QAM montelukast [Singulair] 10 mg tablet 10 mg PO QPM pantoprazole 40 mg tablet,delayed release (DR/EC) 40 mg PO QAM simvastatin 20 mg tablet 10 mg PO QPM metoprolol tartrate 50 mg tablet 25 mg PO BID pregabalin 50 mg capsule 50 mg PO BID hydrocodone-acetaminophen 5-325 mg tablet 1 tab PO Q6H PRN (Reason: Pain) fluticasone propionate [Flonase Allergy Relief] 50 mcg/actuation [place],Suspension 1 spray intranasal BID Probiotic 1 tab PO QPM Vitamin D3 1 tab PO QAM insulin aspart U-100 [Novolog FlexPen U-100 Insulin] 100 unit/mL (3 mL) insulin pen 10 unit SUBCUT TID Rx Instructions: sometimes uses less and sometimes uses more-pt states mostly 10 units tid acetaminophen [Tylenol Extra Strength] 500 mg Tablet 1,000 mg PO PRN tamsulosin 0.4 mg capsule 0.4 mg PO QAM amlodipine 10 mg tablet 10 mg PO BEDTIME ibuprofen 200 mg Tablet 200 mg PO PRN multivitamin with iron-mineral Tablet 1 tab PO QAM Lantus U-100 Insulin 100 unit/mL solution 54 unit SUBCUT DAILY@21 ipratropium bromide 21 mcg (0.03 %) spray,non-aerosol 1 spray INTRANASAL BID PRN (Reason: Allergy Symptoms) No Action aspirin [Adult Low Dose Aspirin] 81 mg tablet,delayed release (DR/EC) 81 mg PO DAILY Discharge Orders: Discharge Order (Routine); Ordered 11/22/22 Ordered By: Deniz Buckley Referrals: [facility] [Outside] Mansi Moreno FNP [Nurse Practitioner] - 12/04/22 9:00 am Diet: Diabetic Activity: Increase activity as tolerated Patient Instructions: Clopidogrel (By mouth) (Plavix), Peripheral Vascular Angioplasty (DC), Opioid Safety, Post Angiogram Home Care Instructions Discharge Date/Time: 11/22/22 09:35 Discharge Attestations Time Spent in Discharge Care*: less than 30 min Quality Metrics Clinical Quality Measures [ No reported AMI, CVA or VTE this stay] Coding Level of Care Code Acute Code for Chg Fwd Diagnoses
[2022-11-22] MEDS: metoprolol tartrate 25 mg Tablet PO (08:00)
[2022-11-22] MEDS: aspirin 325 mg Tablet PO (08:00)
[2022-11-22] MEDS: pregabalin 50 mg Capsule PO (08:00)
[2022-11-22] MEDS: clopidogrel 75 mg Tablet PO (08:00)
[2022-11-22] MEDS: insulin lispro 100 unit/1 mL SUBCUT (08:00)
--- NOTE | 2022-11-22 09:34 | PC.NURSE ---
Discharge Note Patient discharged to home via POV accompanied by spouse. Discharge instructions reviewed with patient and/or enrollment representative. Mobile pharmacy medications and/or prescriptions provided. Belongings/home medications returned.
--- NOTE | 2022-11-22 10:17 | PC.NURSE ---
Called two week supply of plavix into [facility] in [place] for patient until [facility] can deliver.
== END 2022-11-22 09:35 | disposition home health service (06) ==
LOC: CCL 05:48 → CSU 13:19
PROVIDERS: PCP Emergency Medicine Emergency Medical Services; Visit Provider Internal Medicine
DX: R94.39 Abnormal result of other cardiovascular function study (principal); E87.1 Hypo-osmolality and hyponatremia; I73.9 Peripheral vascular disease, unspecified; E11.621 Type 2 diabetes mellitus with foot ulcer; L97.519 Non-pressure chronic ulcer of other part of right foot with unspecified severity; E11.51 Type 2 diabetes mellitus with diabetic peripheral angiopathy without gangrene; Z79.82 Long term (current) use of aspirin; Z79.891 Long term (current) use of opiate analgesic; Z79.4 Long term (current) use of insulin; J44.9 Chronic obstructive pulmonary disease, unspecified; G47.30 Sleep apnea, unspecified; I10 Essential (primary) hypertension; K21.9 Gastro-esophageal reflux disease without esophagitis; Z87.891 Personal history of nicotine dependence; I77.1 Stricture of artery
CPT/HCPCS: 36415; 36416; 37225; 37227; 75625; 75710; 80048; 82962; 85025; 85347; 85730; 96365; 96372; 99152; 99153; C1725; C1769; C1887; C1894; J1644; J1815; J2250; J3010; J3490; J7030; Q0163; Q9967

== ENCOUNTER 2022-11-24 09:40 | Emergency (ER) | payer OTHER, SELFPAY ==
[2022-11-24 09:51] VITALS: BP 145/55; PULSE 70; RESP 16; TEMP 36.4; O2SAT 97
--- NOTE | 2022-11-24 10:47 | USR_ITS ---
PROCEDURE INFORMATION: Exam: US Duplex Left Lower Extremity Veins, Limited Exam date and time: 11/24/2022 11:21 AM Age: 77 years old Clinical indication: Pain; Leg, lower; Left; Prior surgery; Surgery date: 3-7 days post-operative; Surgery type: Post cfv access for RT leg angioplasty; Additional info: Left leg pain post 4 days postop angioplasty TECHNIQUE: Imaging protocol: Real-time duplex ultrasound of the left extremity with 2-D brush scale, color Doppler flow and spectral waveform analysis including responses to compression and other maneuvers (when performed) with image documentation. Limited exam focused on the left lower extremity veins. COMPARISON: CT abdomen pelvis w con* [id number] 08/31/2020 2:38 PM FINDINGS: Left deep veins: Unremarkable. The common femoral, femoral, popliteal, posterior tibial and peroneal veins are patent without thrombus. Normal compressibility, augmentation response and Doppler waveforms. Left superficial veins: Unremarkable. Saphenofemoral junction is patent without thrombus. Soft tissues: Unremarkable. US/CV venous duplex [facility] [id number] IMPRESSION: No sonographic evidence of deep vein thrombosis.
--- NOTE | 2022-11-24 10:47 | USR_ITS ---
PROCEDURE INFORMATION: Exam: US Duplex Left Lower Extremity Arteries Or Arterial Bypass Grafts Exam date and time: 11/24/2022 11:26 AM Age: 77 years old Clinical indication: Pain; Leg, lower; Left; Additional info: Left leg pain TECHNIQUE: Imaging protocol: Left Real-time duplex scan of the arteries or arterial bypass grafts of the left lower extremity with 2-D brush scale, color Doppler flow and spectral waveform analysis. Images documented and saved. COMPARISON: [place] [id number] 11/24/2022 11:21 AM FINDINGS: Left common femoral artery: No occlusion or significant stenosis. Monophasic waveform. Left superficial femoral artery: No occlusion or significant stenosis. Monophasic waveform. Left popliteal artery: No occlusion or significant stenosis. Monophasic waveform. Left calf/foot arteries: No occlusion or significant stenosis in the visualized arteries. Monophasic waveforms. Dorsalis pedis artery is patent. US/[place] [id number] IMPRESSION: No hemodynamically significant stenosis or occlusion.
--- NOTE | 2022-11-24 10:49 | W.ED.EXTPRO ---
HPI - Extremity Problem General: Chief complaint: Extremity Problem,Nontraumatic Stated complaint: left leg hurts Time Seen by Provider: 11/24/22 10:23 History of Present Illness: Patient is a 77-year-old male comes to the ED with left leg pain. Past medical history of hypertension, PAD, COPD, GERD and diabetes. Patient had an angioplasty done for right leg back on November 21, 2022. The entry site for the angioplasty is in the left groin region. Yesterday patient started having some pain in his left leg. Pain started in his feet and has radiated up his entire leg. He has soreness in his thigh and calf. Denies any chest pain, shortness of breath or hemoptysis. Associated symptoms: Deny chest pain, fever(s) or rash Review of Systems Const: Denies: fever(s), chills or fatigue Eyes: Denies: change in vision or eye discomfort ENMT: Denies: throat pain, odynophagia, nasal discharge or nasal congestion Card: Denies: chest pain, palpitations, edema, swelling of feet/ankles, dyspnea on exertion or orthopnea Resp: Denies: dyspnea, productive cough or non-productive cough GI: Denies: abdominal pain, nausea, vomiting, diarrhea, constipation or hematochezia : Denies: flank pain, difficulty urinating, dysuria or hematuria Musc: Reports: extremity pain (Left leg pain); Denies: neck pain, back pain or extremity swelling Skin/Breast: Denies: rash or new lesions Neuro: Denies: headache(s), numbness in extremities or weakness in extremities [facility] ED PFSH: Medical History Bilateral carotid artery stenosis COPD (chronic obstructive pulmonary disease) Diabetes GERD (gastroesophageal reflux disease) Hearing loss History of left common carotid artery stent placement Hypertension PAD (peripheral artery disease) Peripheral vascular disease Peripheral vascular disease Seizure disorder Sleep apnea Surgical History H/O carotid endarterectomy H/O esophagogastroduodenoscopy H/O knee surgery History of back surgery S/P appendectomy Status post colonoscopy with polypectomy Status post laparoscopic cholecystectomy (12/01/19) Family History Other CAD (coronary artery disease) Cancer Dementia Diabetes Hyperlipidemia Hypertension Pacemaker Stroke Social History Smoking and tobacco status: former smoker Quit status (tobacco): has quit using tobacco Alcohol intake: current Alcohol intake frequency: holidays/special occasions only Substance/Drug Use: never Physical Exam Const: COMMON NORMALS: patient oriented x3 HENMT: COMMON NORMALS: normocephalic HEAD & SCALP: normocephalic MOUTH: Normal oral and palatal mucosa present THROAT: posterior oropharynx normal and uvula midline Neck/C-Spine: COMMON NORMALS: supple GENERAL: Yes normal visual inspection Resp: COMMON NORMALS: normal respiratory effort, No retractions, No use of accessory muscles and clear to auscultation bilaterally AUSCULTATION: clear to auscultation bilaterally Cardio: COMMON NORMALS: regular rate, regular rhythm, S1 normal heart sound present, S2 normal heart sound present, No gallops present (Cardio), No clicks present (Cardio), No murmurs present (Cardio) and Peripheral pulses 2+ throughout RATE: regular rate RHYTHM: regular rhythm HEART SOUNDS: S1 normal heart sound present and S2 normal heart sound present PERIPHERAL PULSES: Peripheral pulses 2+ throughout GI: COMMON NORMALS: Normal to inspection, nondistended, normoactive bowel sounds present, Soft to palpation, non-tender and no masses PALPATION: Yes Soft to palpation : COMMON NORMALS: Yes no CVA tenderness BLADDER/KIDNEY EXAM: Yes no CVA tenderness Back/Pelvis: COMMON NORMALS: no CVA tenderness Extremity: NARRATIVE EXTREMITY EXAM: Left leg?angioplasty insertion site has some mild ecchymosis and swelling but is not tender. No purulent drainage seen. Patient does have some left calf tenderness upon palpation. rest of exam of the leg is unremarkable. Neuro: COMMON NORMALS: patient oriented x3 GAIT: Yes Normal gait present Skin: GENERAL SKIN EXAM: dry skin Course Vital Signs: Vital signs: Vital Signs Temperature 97.5 F L 11/24/22 09:51 Pulse Rate 70 11/24/22 09:51 Respiratory Rate 16 11/24/22 09:51 Blood Pressure 145/55 11/24/22 09:51 Pulse Oximetry 97 11/24/22 09:51 Oxygen Delivery Me thod Room Air 04/30/23 09:51 MDM - Extremity (Nontraumatic) Medical Decision Making Patient is a 77-year-old male comes to the ED with left leg pain. Patient had an angioplasty done for right leg back on November 21, 2022. The entry site for the angioplasty is in the left groin region. Yesterday patient started having some pain in his left leg. Pain started in his feet and has radiated up his entire leg. He has soreness in his thigh and calf. Denies any chest pain, shortness of breath or hemoptysis. Left leg?angioplasty insertion site has some mild ecchymosis and swelling but is not tender. No purulent drainage seen. Patient does have some left calf tenderness upon palpation. rest of exam of the leg is unremarkable. Vitals are stable. Ultrasound venous duplex of left lower extremity showed no DVTs. Ultrasound arterial duplex scan of left lower extremity showed no significant stenosis or occlusion. Patient was stable for discharge home and diagnosed with left leg pain. Told to follow-up with the doctor performed angioplasty on Friday. Strict return to ED precautions given. Patient understood and agreed with plan Lab Data Radiology Impressions Duplex Scan Lower Extremity Artery 11/24/22 10:47 IMPRESSION: No hemodynamically significant stenosis or occlusion. Venous Duplex 11/24/22 10:47 IMPRESSION: No sonographic evidence of deep vein thrombosis. Discharge Plan Discharge Patient Disposition: Home Clinical Impression: Pain of left leg Condition: Stable Prescriptions: No Action albuterol sulfate 90 mcg/actuation aerosol powdr breath activated 2 inh INHALATION Q6H PRN (Reason: breathing) cetirizine 10 mg capsule 10 mg PO QPM losartan 100 mg tablet 100 mg PO QAM montelukast [Singulair] 10 mg tablet 10 mg PO QPM pantoprazole 40 mg tablet,delayed release (DR/EC) 40 mg PO QAM simvastatin 20 mg tablet 10 mg PO QPM metoprolol tartrate 50 mg tablet 25 mg PO BID pregabalin 50 mg capsule 50 mg PO BID hydrocodone-acetaminophen 5-325 mg tablet 1 tab PO Q6H PRN (Reason: Pain) aspirin [Adult Low Dose Aspirin] 81 mg tablet,delayed release (DR/EC) 81 mg PO DAILY fluticasone propionate [Flonase Allergy Relief] 50 mcg/actuation [place],Suspension 1 spray intranasal BID Probiotic 1 tab PO QPM Vitamin D3 1 tab PO QAM insulin aspart U-100 [Novolog FlexPen U-100 Insulin] 100 unit/mL (3 mL) insulin pen 10 unit SUBCUT TID Rx Instructions: sometimes uses less and sometimes uses more-pt states mostly 10 units tid acetaminophen [Tylenol Extra Strength] 500 mg Tablet 1,000 mg PO PRN tamsulosin 0.4 mg capsule 0.4 mg PO QAM amlodipine 10 mg tablet 10 mg PO BEDTIME ibuprofen 200 mg Tablet 200 mg PO PRN multivitamin with iron-mineral Tablet 1 tab PO QAM Lantus U-100 Insulin 100 unit/mL solution 54 unit SUBCUT DAILY@21 ipratropium bromide 21 mcg (0.03 %) spray,non-aerosol 1 spray INTRANASAL BID PRN (Reason: Allergy Symptoms) Plavix 75 mg tablet 75 mg PO DAILY Qty: 90 0RF Discharge Orders: Discharge ED (Routine); Ordered 11/24/22 Ordered By: Randall Duarte Referrals: Pete Pope DO [Primary Care Provider] - Discharge Diet: Regular Discharge Activity: Increase activity as tolerated Activity Restrictions/Additional Instructions: Follow-up with medical provider as directed. Contact the surgeon who performed angioplasty on Friday morning to let them know about your symptoms and left leg. Continue taking all home medications as previously prescribed. return to the ER or your medical provider if condition worsens. Please read and understand discharge instructions. Thank you for choosing [facility] for your healthcare needs today. Please realize this is an emergency room and that we are providing you with a medical screening exam and this may not be complete and all inclusive of all the testing and or work up that you may need to determine your ailment or severity of your illness. It is very important that you follow up as instructed or that you return to the Emergency Department should you have concerns or if your condition changes or worsens in any way. Print Language: Afghan Coding Level of Care Code ED Restorative Coordinator for Katherine Jalloh
== END 2022-11-24 13:17 | disposition home or self-care (01) ==
PROVIDERS: Emergency Provider Physician Assistant; PCP Emergency Medicine Emergency Medical Services
DX: M79.605 Pain in left leg (principal); Z79.82 Long term (current) use of aspirin; Z79.4 Long term (current) use of insulin; Z87.891 Personal history of nicotine dependence; J44.9 Chronic obstructive pulmonary disease, unspecified; E11.9 Type 2 diabetes mellitus without complications; I10 Essential (primary) hypertension
CPT/HCPCS: 93926; 93971; 99284

== ENCOUNTER → 2022-12-04 08:48 | Outpatient (BNVA) | payer OTHER, SELFPAY | PROVIDERS: PCP Emergency Medicine Emergency Medical Services; Visit Provider Nurse Practitioner Family | DX: I73.9 Peripheral vascular disease, unspecified (principal); I10 Essential (primary) hypertension; Z87.891 Personal history of nicotine dependence | CPT/HCPCS: 99214 ==

== ENCOUNTER → 2023-01-29 14:45 | Outpatient (BNVA) | payer OTHER, SELFPAY | PROVIDERS: PCP Emergency Medicine Emergency Medical Services; Visit Provider Internal Medicine Cardiovascular Disease | DX: I73.9 Peripheral vascular disease, unspecified (principal); I10 Essential (primary) hypertension; Z87.891 Personal history of nicotine dependence | CPT/HCPCS: 99214 ==

== ENCOUNTER 2023-02-11 16:41 | Emergency (ER) | payer OTHER, SELFPAY ==
[2023-02-11] VITALS (9 sets, daily range): BP systolic 154–195; BP diastolic 71–90; PULSE 76–79; RESP 12–18; TEMP 36.7; O2SAT 95–98; BMI 27.5
--- NOTE | 2023-02-11 16:45 | W.ED.RECABL ---
HPI - Recheck/Abnormal Lab/Rx General: Chief Complaint: Recheck/Abnormal Lab/Rx Stated Complaint: sent by va/abn labs Time Seen by Provider: 02/11/23 16:45 History of Present Illness: Mr. Holliday is a 77-year-old gentleman with significant past medical history of insulin-dependent diabetes and chronic hyponatremia presenting due to abnormal labs. He reports feeling generalized fatigue and had labs drawn by PCP yesterday. He was called today for sodium of 120. He does report typically running in the high 120s however has never been this low before. He has had lightheadedness and generalized malaise. Denies fevers or other specific focal neuro symptoms. Intensity is moderate. He is on hydrochlorothiazide. No other specific changes in health, exacerbating, or alleviating factors identified. Review of Systems General: Reports: 10 or more systems reviewed and unremarkable except in HPI and below PFSH ED PFSH: Medical History Bilateral carotid artery stenosis COPD (chronic obstructive pulmonary disease) Diabetes GERD (gastroesophageal reflux disease) Hearing loss History of left common carotid artery stent placement Hypertension PAD (peripheral artery disease) Peripheral vascular disease Peripheral vascular disease Seizure disorder Sleep apnea Surgical History H/O carotid endarterectomy H/O esophagogastroduodenoscopy H/O knee surgery History of back surgery S/P appendectomy Status post colonoscopy with polypectomy Status post laparoscopic cholecystectomy (12/01/19) Family History Other CAD (coronary artery disease) Cancer Dementia Diabetes Hyperlipidemia Hypertension Pacemaker Stroke Social History Smoking and tobacco status: former smoker Quit status (tobacco): has quit using tobacco Alcohol intake: current Alcohol intake frequency: holidays/special occasions only Substance/Drug Use: never Physical Exam Const: COMMON NORMALS: patient oriented x3 and alert GENERAL APPEARANCE: cooperative and well developed HENMT: COMMON NORMALS: normocephalic and atraumatic HEAD & SCALP: normocephalic and atraumatic Eye: COMMON NORMALS: conjunctivae normal CONJUNCTIVA: Yes conjunctivae normal SCLERA: sclerae normal Neck/C-Spine: COMMON NORMALS: supple GENERAL: Yes trachea midline Resp: COMMON NORMALS: clear to auscultation bilaterally EFFORT & INSPECTION: Yes able to speak in complete sentences AUSCULTATION: clear to auscultation bilaterally Cardio: COMMON NORMALS: regular rate and regular rhythm RATE: regular rate RHYTHM: regular rhythm GI: COMMON NORMALS: Soft to palpation PALPATION: Yes Soft to palpation and No Tenderness to palpation present (GI) Extremity: GENERAL: Yes normal exam except as noted and No edema Neuro: COMMON NORMALS: patient oriented x3, CN's II-XII intact bilaterally, moves all extremities, no focal motor deficits and no sensory deficits noted SENSORIUM/ORIENTATION: Yes alert and No Orientation impaired Psych: COMMON NORMALS: mental status grossly normal and Normal thought process present THOUGHT PROCESS: Normal thought process present Course Vital Signs: Vital signs: Vital Signs Temperature 98.0 F 02/11/23 16:43 Pulse Rate 79 02/11/23 19:41 Respiratory Rate 18 02/11/23 19:41 Blood Pressure 154/90 02/11/23 19:41 Pulse Oximetry 96 02/11/23 19:41 Oxygen Delivery Me thod Room Air 02/11/23 16:43 MDM - Recheck/Abnormal Lab/Rx Medical Decision Making 77-year-old gentleman with history of hyponatremia presenting with generalized illness and abnormal labs. Exam as above. No focal neurodeficits. Nontoxic. Labs without significant mortality. Repeat sodium 126. Hyperglycemia without evidence of DKA. No UTI. No indication for imaging. Likely some degree of lab variability however overall low risk for significant osmotic changes with eyelids. LR given. Patient feels improved. The results of ED evaluation were discussed with the patient including prescriptions and/or symptomatic cares (if applicable) including appropriate and responsible use, followup plan, and return precautions. The patient verbalized understanding and felt safe for discharge. Medical Records I reviewed the patient's medical records. Lab Data I reviewed the patient's lab results. 02/11/23 17:20 02/11/23 17:20 Laboratory Results WBC 8.0 10^3/uL (4.0-10.0) 02/11/23 17:20 RBC 4.17 10^6/uL (4.1-5.3) 02/11/23 17:20 Hgb 12.8 g/dL (11.7-16.6) 02/11/23 17:20 Hct 37.2 % (42.0-52.0) L 02/11/23 17:20 MCV 89.2 fl (80-94) 02/11/23 17:20 MCH 30.7 pg (28.0-34.0) 02/11/23 17:20 MCHC 34.4 g/dL (30.0-36.0) 02/11/23 17:20 RDW 12.9 % (12.1-15.1) 02/11/23 17:20 Plt Count 241 10^3/cmm (130-400) 02/11/23 17:20 MPV 10.3 fL (7.4-10.4) 02/11/23 17:20 Neut % (Auto) 62.7 % 02/11/23 17:20 Lymph % (Auto) 16.9 % 02/11/23 17:20 [place] % (Auto) 13.4 % 02/11/23 17:20 Eos % (Auto) 6.3 % 02/11/23 17:20 Baso % (Auto) 0.6 % 02/11/23 17:20 Neut # (Auto) 4.99 10^3/uL (1.8-7.7) 02/11/23 17:20 Lymph # (Auto) 1.4 10^3/uL (0.8-4.8) 02/11/23 17:20 [place] # (Auto) 1.1 10^3/uL (0.2-0.9) H 02/11/23 17:20 Eos # (Auto) 0.5 10^3/uL (0.0-0.8) 02/11/23 17:20 Baso # (Auto) 0.1 10^3/uL (0.0-0.1) 02/11/23 17:20 Nucleated RBC % (auto) 0 % 02/11/23 17:20 Nucleated RBCs # 0.0 /100WBC 02/11/23 17:20 Sodium 126 mmol/L (136-145) L 02/11/23 17:20 Potassium 4.3 mmol/L (3.5-5.1) 02/11/23 17:20 Chloride 90 mmol/L (98-107) L 02/11/23 17:20 Carbon Dioxide 25 mmol/L (22-29) 02/11/23 17:20 Anion Gap 15.3 (5-19) 02/11/23 17:20 BUN 13 mg/dL (8-23) 02/11/23 17:20 Creatinine 0.8 mg/dL (0.7-1.2) 02/11/23 17:20 GFR Calculation Not Reportable 02/11/23 17:20 Glucose 201 mg/dL (65-115) H 02/11/23 17:20 POC Glucose 241 mg/dL (70-110) H 02/11/23 17:16 Calculated Osmolality 268 mOsm/kg (285-295) L 02/11/23 17:20 Calcium 9.1 mg/dL (8.5-10.5) 02/11/23 17:20 Total Bilirubin 0.4 mg/dL (0.15-1.2) 02/11/23 17:20 AST 13 U/L (0-40) 02/11/23 17:20 ALT 13 U/L (0-41) 02/11/23 17:20 Alkaline Phosphatase 76 U/L (40-130) 02/11/23 17:20 Total Protein 7.1 g/dL (6.6-8.7) 02/11/23 17:20 Albumin 4.2 g/dL (3.5-5.2) 02/11/23 17:20 Globulin 2.9 g/dL (1.3-4.6) 02/11/23 17:20 Urine Color Yellow (Yellow) 02/11/23 17:59 Urine Appearance Clear (CLEAR) 02/11/23 17:59 Urine pH 8 (5-7) H 02/11/23 17:59 Ur Specific [place] 1.005 (1.005-1.030) 02/11/23 17:59 Urine Protein Neg (Negative) 02/11/23 17:59 Urine Glucose (UA) 1+ (Normal) H 02/11/23 17:59 Urine Ketones Negative (Negative) 02/11/23 17:59 Urine Blood Neg (Negative) 02/11/23 17:59 Urine Nitrate Negative (Negative) 02/11/23 17:59 Urine Bilirubin Neg (Negative) 02/11/23 17:59 Prot Sulfosalicylic Acd Negative (Negative) 02/11/23 17:59 Urine Urobilinogen Norm mg/dL (Negative) 02/11/23 17:59 Ur Leukocyte Esterase Negative (Negative) 02/11/23 17:59 Serum Ketones Negative (Negative) 02/11/23 17:20 Discharge Plan Discharge Patient Disposition: Home Clinical Impression: Dehydration with hyponatremia, Chronic hyponatremia Condition: Stable Prescriptions: No Action albuterol sulfate 90 mcg/actuation aerosol powdr breath activated 2 inh INHALATION Q6H PRN (Reason: breathing) cetirizine 10 mg capsule 10 mg PO QPM losartan 100 mg tablet 100 mg PO QAM montelukast [Singulair] 10 mg tablet 10 mg PO QPM pantoprazole 40 mg tablet,delayed release (DR/EC) 40 mg PO QAM simvastatin 20 mg tablet 10 mg PO QPM metoprolol tartrate 50 mg tablet 25 mg PO BID pregabalin 50 mg capsule 50 mg PO BID hydrocodone-acetaminophen 5-325 mg tablet 1 tab PO Q6H PRN (Reason: Pain) aspirin [Adult Low Dose Aspirin] 81 mg tablet,delayed release (DR/EC) 81 mg PO DAILY fluticasone propionate [Flonase Allergy Relief] 50 mcg/actuation [place],Suspension 1 spray intranasal BID Probiotic 1 tab PO QPM Vitamin D3 1 tab PO QAM insulin aspart U-100 [Novolog FlexPen U-100 Insulin] 100 unit/mL (3 mL) insulin pen 10 unit SUBCUT TID Rx Instructions: sometimes uses less and sometimes uses more-pt states mostly 10 units tid acetaminophen [Tylenol Extra Strength] 500 mg Tablet 1,000 mg PO PRN tamsulosin 0.4 mg capsule 0.4 mg PO QAM amlodipine 10 mg tablet 10 mg PO BEDTIME ibuprofen 200 mg Tablet 200 mg PO PRN multivitamin with iron-mineral Tablet 1 tab PO QAM Lantus U-100 Insulin 100 unit/mL solution 54 unit SUBCUT DAILY@21 ipratropium bromide 21 mcg (0.03 %) spray,non-aerosol 1 spray INTRANASAL BID PRN (Reason: Allergy Symptoms) Plavix 75 mg tablet 75 mg PO DAILY Qty: 90 0RF Discharge Orders: Discharge ED (Routine); Ordered 02/11/23 Ordered By: Jermaine Burden Referrals: Pete Pope DO [Primary Care Provider] - Discharge Diet: Usual diet Discharge Activity: Increase activity as tolerated Patient Instructions: Hyponatremia (ED) Activity Restrictions/Additional Instructions: Thank you for visiting the emergency department. You were seen and evaluated for abnormal labs. On repeat your sodium is mildly improved and should continue to improve with IV fluids. We are pleased that you had improvement in symptoms. Follow-up with your primary care provider. Return for worsening symptoms, any new neurologic symptoms, or anything else that you are concerned about and feel needs emergency department evaluation. Coding Level of Care Code ED Senior Unix Administrator for Katherine Jalloh
[2023-02-11 17:28] LABS: Basophils # 0.1 10^3/uL (0.0-0.1); Basophils % 0.6 %; Eosinophils # 0.5 10^3/uL (0.0-0.8); Eosinophils % 6.3 %; Hematocrit 37.2 % (42.0-52.0); Hemoglobin 12.8 g/dL (11.7-16.6); Lymphocytes # 1.4 10^3/uL (0.8-4.8); Lymphocytes % 16.9 %; Mean Corpuscular HGB Conc 34.4 g/dL (30.0-36.0); Mean Corpuscular Hemoglobin 30.7 pg (28.0-34.0); Mean Corpuscular Volume 89.2 fl (80-94); Mean Platelet Volume 10.3 fL (7.4-10.4); Monocytes # 1.1 10^3/uL (0.2-0.9); Monocytes % 13.4 %; Neutrophils # 4.99 10^3/uL (1.8-7.7); Neutrophils % 62.7 %; Nucleated Red Blood Cells % 0 %; Platelet Count 241 10^3/cmm (130-400); Red Blood Count 4.17 10^6/uL (4.1-5.3); Red Cell Distribution Width 12.9 % (12.1-15.1)
[2023-02-11 17:47] LABS: Alanine Aminotransferase 13 U/L (0-41); Albumin Level 4.2 g/dL (3.5-5.2); Alkaline Phosphatase 76 U/L (40-130); Anion Gap 15.3 (5-19); Aspartate Amino Transferase 13 U/L (0-40); Blood Urea Nitrogen 13 mg/dL (8-23); Calcium 9.1 mg/dL (8.5-10.5); Carbon Dioxide 25 mmol/L (22-29); Chloride 90 mmol/L (98-107); Globulin 2.9 g/dL (1.3-4.6); Glucose 201 mg/dL (65-115); Ketone (Acetest) Serum Negative (Negative); Osmolality Calculated 268 mOsm/kg (285-295); Potassium 4.3 mmol/L (3.5-5.1); Sodium 126 mmol/L (136-145); Total Bilirubin 0.4 mg/dL (0.15-1.2); Total Protein 7.1 g/dL (6.6-8.7)
[2023-02-11 17:50] LABS: Glucose Point of Care 241 mg/dL (70-110)
[2023-02-11] MEDS: lactated ringers 1,000 ML 999 ML IV (18:10)
[2023-02-11 18:11] LABS: Add Urine Microscopic? NO; Charge for UA Resulting for Rev
[2023-02-11 18:22] LABS: Bilirubin Urine Neg (Negative); Blood Urine Neg (Negative); Glucose Urine UA 1+ (Normal); Ketones Urine Negative (Negative); Leukocyte Esterase Urine Negative (Negative); Nitrate Urine Negative (Negative); Protein Urine Neg (Negative); Specific Gravity, Urine 1.005 (1.005-1.030); Sulfosalicylic Acid Urine Negative (Negative); Urine Appearance Clear (CLEAR); Urine Color Yellow (Yellow); Urobilinogen Urine Norm (Negative); pH Urine 8 (5-7)
== END 2023-02-11 19:43 | disposition home or self-care (01) ==
PROVIDERS: Emergency Provider Emergency Medicine; PCP Emergency Medicine Emergency Medical Services
DX: E87.1 Hypo-osmolality and hyponatremia (principal); E86.0 Dehydration; Z79.82 Long term (current) use of aspirin; Z79.4 Long term (current) use of insulin; J44.9 Chronic obstructive pulmonary disease, unspecified; E11.9 Type 2 diabetes mellitus without complications; I10 Essential (primary) hypertension; Z87.891 Personal history of nicotine dependence
CPT/HCPCS: 36415; 36416; 80053; 81003; 82009; 82962; 85025; 99284; J7120

== ENCOUNTER 2023-02-21 08:24 | Outpatient (CLI) | payer OTHER, MEDICARE, SELFPAY ==
--- NOTE | 2023-02-21 08:33 | XR_ITS ---
WS: [id number] EXAMINATION: XR lumbar spine 2-3V* [id number] REASON FOR EXAM: LUMBAR STENOSIS/S/P ARTHRODESIS COMPARISON: None available. ORDER DATE: 02/21/2023 8:33 AM FINDINGS/IMPRESSION: The upper lumbar vertebral bodies and the disc spaces are normal in width there is posterior fusion f rom L4 to S1 with anterolisthesis of 6 mm of L4 compared with L5. There is prominent aortoiliac calci fied plaque There are areas of significant fecal content in the right colon and small air-fluid levels are presen t small bowel which could reflect either partial obstruction or developing ileus.
== END 2023-02-21 08:25 | disposition home or self-care (01) ==
LOC: RAD 08:29
PROVIDERS: PCP Emergency Medicine Emergency Medical Services; Visit Provider Emergency Medicine Emergency Medical Services
DX: M48.061 Spinal stenosis, lumbar region without neurogenic claudication (principal); Z98.1 Arthrodesis status; I70.0 Atherosclerosis of aorta
CPT/HCPCS: 72100

== ENCOUNTER 2023-04-09 07:02 | Outpatient (CLI) | payer OTHER, SELFPAY ==
--- NOTE | 2023-04-09 | USCV_ITS ---
Fidel Holliday Age: 77 Gender: M : 1945 Exam Date: 04/09/2023 07:18 Ordering Phys: Pete Pope DO Technologist: WILLY [place] [facility] [place]: BRUIT Risk Factors: Previous Vascular Surgery: Right Brachial BP: / Left Brachial BP: / Right Left Velocity (cm/s) Spectral Plaque Velocity (cm/s) Spectral Plaque Syst/Diast Broadening Syst/Diast Broadening 77.80/ 10.30 Prox CCA 95.00 / 10.70 79.80/ 10.50 Mid CCA 82.00 / 12.00 79.80/ 10.50 Distal CCA 76.90 / 12.00 145.70/21.60 Prox ICA 125.80/ 20.20 195.70/24.00 Mid ICA 130.50/ 23.30 101.30/12.80 Distal ICA 91.70 / 17.40 213.90 ECA 287.10 2.45 ICA/CCA 1.37 Antegrade Vertebral Antegrade 52.10/ 8.10 cm/s 59.50/ 12.10 cm/s Tri Subclavian Tri 153.8 141.1 0 0 FINDINGS Comparison:. 11/13/21. Mild increase in plaque and velocity right ICA. Left carotid stent is patent, no stenosis. Mild carotid plaque left ICA. Antegrade vertebral arteries. CONCLUSIONS Right ICA stenosis 50-69%. Mild progression right ICA stenosis. Left ICA stenosis < 50%. Dr. Tammy Bradley DO (Electronically Signed) Final Date: 09 April 2023 08:43 S
== END 2023-04-09 07:03 | disposition home or self-care (01) ==
PROVIDERS: PCP Emergency Medicine Emergency Medical Services; Visit Provider Emergency Medicine Emergency Medical Services
DX: I65.21 Occlusion and stenosis of right carotid artery (principal)
CPT/HCPCS: 93880

== ENCOUNTER → 2023-05-06 13:17 | Outpatient (BNVA) | payer OTHER, SELFPAY | PROVIDERS: PCP Emergency Medicine Emergency Medical Services; Visit Provider Thoracic Surgery (Cardiothoracic Vascular Surgery) | DX: I65.23 Occlusion and stenosis of bilateral carotid arteries (principal); Z87.891 Personal history of nicotine dependence; I10 Essential (primary) hypertension | CPT/HCPCS: 99203 ==

== ENCOUNTER 2023-05-09 15:26 | Outpatient (CLI) | payer OTHER, SELFPAY ==
--- NOTE | 2023-05-09 16:00 | CT_ITS ---
WS: [id number] CTA NECK TECHNIQUE: Contrast enhanced CTA of the neck with coronal and sagittal reformatted images and maximum intensity projection (MIP) images. NASCET criteria utilized. CLINICAL INFORMATION: carotid stenosis COMPARISON: Ultrasound 04/09/2023 DLP: 624.[address] scans at [facility] use at least one of these dose optimization techniques: automated e xposure control; mA and/or kV adjustment per patient size (includes targeted exams where dose is matc hed to clinical indication); or iterative reconstruction. FINDINGS: RIGHT: RIGHT common carotid artery is patent. Moderate atheromatous plaque RIGHT carotid bulb extendi ng into the ICA. RIGHT ICA stenosis measures 76%. RIGHT ICA is patent to the skull base. Cavernous ca rotid calcification. LEFT: LEFT common carotid artery is patent. LEFT carotid stent is patent. No recurrent stenosis. LEFT ICA is patent to the skull base. Chronic calcification LEFT carotid bulb and proximal ICA. Both vertebral arteries are patent. Calcification at both vertebral artery origins with moderate RIGH T and mild LEFT origin stenosis. Proximal basilar artery is patent. Calcified granuloma RIGHT upper lobe. Small bilateral thyroid nodules. Mastoid air cells are well aer ated. Paranasal sinuses are well aerated. Normal posterior nasopharynx. Aortic arch calcification. St raightening normal cervical lordosis. Moderate spondylitic changes. Mild central canal stenosis C5-C6 and C6-C7 due to disc osteophyte complexes. IMPRESSION: 1. RIGHT ICA stenosis measures 76% 2. LEFT carotid stent is patent. No recurrent stenosis. 3. Vertebral arteries are patent with moderate RIGHT and mild LEFT calcified origin stenosis. 4. Mild central canal stenosis C5-C6 and C6-C7 due to disc osteophyte complexes.
[2023-05-09] MEDS: iohexol 350 mg/mL 500 mL Btl (per mL) IV (16:08)
[2023-05-09 16:09] LABS: Blood Urea Nitrogen 17 mg/dL (8-23)
== END 2023-05-09 15:27 | disposition home or self-care (01) ==
LOC: RAD 15:28
PROVIDERS: PCP Emergency Medicine Emergency Medical Services; Visit Provider Thoracic Surgery (Cardiothoracic Vascular Surgery)
DX: I65.23 Occlusion and stenosis of bilateral carotid arteries (principal); M25.78 Osteophyte, vertebrae
CPT/HCPCS: 70498; 82565; 84520; Q9967

== ENCOUNTER → 2023-05-27 13:03 | Outpatient (BNVA) | payer OTHER, SELFPAY | PROVIDERS: PCP Emergency Medicine Emergency Medical Services; Visit Provider Thoracic Surgery (Cardiothoracic Vascular Surgery) | DX: I65.23 Occlusion and stenosis of bilateral carotid arteries (principal); I10 Essential (primary) hypertension; Z87.891 Personal history of nicotine dependence | CPT/HCPCS: 99213 ==

== ENCOUNTER → 2023-08-15 09:49 | Outpatient (BNVA) | payer OTHER, SELFPAY | PROVIDERS: PCP Emergency Medicine Emergency Medical Services; Visit Provider Internal Medicine Cardiovascular Disease | DX: I10 Essential (primary) hypertension (principal); I65.23 Occlusion and stenosis of bilateral carotid arteries; I73.9 Peripheral vascular disease, unspecified; I45.2 Bifascicular block; E11.9 Type 2 diabetes mellitus without complications; J44.9 Chronic obstructive pulmonary disease, unspecified; Z98.890 Other specified postprocedural states; Z95.828 Presence of other vascular implants and grafts | CPT/HCPCS: 99214 ==

== ENCOUNTER 2023-08-27 12:37 | Outpatient (CLI) | payer OTHER, SELFPAY ==
--- NOTE | 2023-08-27 13:00 | USCV_ITS ---
Fidel Holliday Age: 78 Gender: M : 1945 Exam Date: 08/27/2023 12:48 Ordering Phys: Guillermo Duenas MD (Andy) ([email or web address] [place] Technologist: Exam Location: [facility] [place] Indication: bilat stenosis Risk Factors: Previous Vascular Surgery: lt side ica stent Right Brachial BP: / Left Brachial BP: / Right Left Velocity (cm/s) Spectral Plaque Velocity (cm/s) Spectral Plaque Syst/Diast Broadening Syst/Diast Broadening 63.90/ 8.80 Prox CCA 69.70 / 10.50 60.60/ 2.20 Mid CCA 72.30 / 11.80 48.50/ 0.00 Yovani Distal CCA 71.00 / 11.80 179.40/22.80 Hetro Prox ICA 64.90 / 7.70 239.30/31.30 Yovani Mid ICA 166.30/ 27.30 225.00/34.20 Hetro Distal ICA 161.80/ 25.10 146.00 ECA 213.10 3.74 ICA/CCA 2.30 Antegrade Vertebral Antegrade 60.30/ 4.00 cm/s 57.80/ 13.10 cm/s Bi Subclavian Bi 116.6 102.5 0 0 FINDINGS Comparison:. 04/09/23 Increase in velocity and loss of normal waveform right carotid artery. Increase in plaque on the right. Left carotid stent is patent. Mild increase in left carotid velocity. Antegrade vertebral arteries. CONCLUSIONS Right ICA stenosis 50-69%. Increasing velocity and abnormal waveforms. Suspect the stenosis may be greater than 69%. Consider CTA carotid arteries. Left ICA stenosis 50-69%. Dr. Tammy Bradley DO (Electronically Signed) Final Date: 27 August 2023 13:42 S
== END 2023-08-27 12:38 | disposition home or self-care (01) ==
LOC: RAD 12:37
PROVIDERS: PCP Emergency Medicine Emergency Medical Services; Visit Provider Thoracic Surgery (Cardiothoracic Vascular Surgery)
DX: I65.23 Occlusion and stenosis of bilateral carotid arteries (principal)
CPT/HCPCS: 93880

== ENCOUNTER → 2023-09-08 13:31 | Outpatient (BNVA) | payer OTHER, SELFPAY | PROVIDERS: PCP Emergency Medicine Emergency Medical Services; Visit Provider Thoracic Surgery (Cardiothoracic Vascular Surgery) | DX: I65.21 Occlusion and stenosis of right carotid artery (principal); Z87.891 Personal history of nicotine dependence; I10 Essential (primary) hypertension | CPT/HCPCS: 99212 ==

== ENCOUNTER 2023-10-13 12:20 | Inpatient (IN) | payer OTHER, MEDICARE, SELFPAY ==
--- NOTE | 2023-10-09 09:22 | ECG_ITS ---
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 Measurements Intervals [place] Rate: 57 P: 33 VT: 245 QRS: -59 QRSD: 143 T: 32 QT: 407 QTc: 397 Interpretive Statements SINUS BRADYCARDIA WITH FIRST DEGREE AV BLOCK INTRAVENTRICULAR CONDUCTION DELAY [130+ ms QRS DURATION] PROBABLE LATERAL MYOCARDIAL INFARCTION , PROBABLY OLD [35 ms Q WAVE IN I/aVL/V5/V6] Compared to ECG 10/16/2020 20:21:25 Intraventricular conduction delay now present Sinus rhythm no longer present Right bundle-branch block no longer present Left anterior fascicular block no longer present Myocardial infarct finding still present Electronically Signed On 10-09-2023 15:21:07 CDT by Amadeo Aguilar M.D. [id number]
--- NOTE | 2023-10-09 09:53 | ANES.PREANE2 ---
Pre-Anesthetic Assessment Height/Weight: Height 1.78 m Operation Date: 10/13/23 08:35 Proposed Procedures p right carotid surgery 41152,I65.29(Right) - Guillermo Duenas MD Familial anesthetic complications: None Social No alcohol and No tobacco Exam alert, oriented x 3, clear to auscultation bilaterally and regular rate & rhythm Airway Mallampati: Class II Dentition: other (none) Pulmonary Chronic Obstructive Pulmonary Disease and Sleep Apnea CV/HEM Hypertension and Peripheral Vascular Disease hx bifasicular block GI Gastroesophageal Reflux Disease Metabolic hx hypnonatremia Neuropsych Cerebrovascular Accident (stent in L carotid already) Anesthetic Plan ASA status: 3 Anesthesia: General Other: A-line Risk of > 500 ml blood loss (7ml/kg in children): No Medications/Allergies Home Medications Medication Instructions Recorded Confirmed Last Taken Type albuterol sulfate 90 mcg/actuation 2 inh inhalation Q6H PRN breathing 11/08/19 10/09/23 10/15/20 08:00 History breath activated powder inhaler cetirizine 10 mg capsule 10 mg PO QPM 11/08/19 10/09/23 1 Day Ago History ~10/08/23 losartan 100 mg tablet 100 mg PO QAM 11/08/19 10/09/23 1 Day Ago History ~10/08/23 montelukast 10 mg tablet 10 mg PO QPM 11/08/19 10/09/23 1 Day Ago History (Singulair) ~10/08/23 pantoprazole 40 mg tablet,delayed 40 mg PO QAM 11/08/19 10/09/23 1 Day Ago History release ~10/08/23 simvastatin 20 mg tablet 10 mg PO QPM 11/08/19 10/09/23 1 Day Ago History ~10/08/23 metoprolol tartrate 50 mg tablet 25 mg PO BID 08/28/20 10/09/23 1 Day Ago History ~10/08/23 Probiotic 1 tab PO QPM 08/31/20 10/09/23 1 Day Ago History ~10/08/23 Vitamin D3 1 tab PO QAM 08/31/20 10/09/23 1 Day Ago History ~10/08/23 fluticasone propionate 50 1 spray intranasal BID 08/31/20 10/09/23 1 Day Ago History mcg/actuation nasal ~10/08/23 spray,suspension (Flonase Allergy Relief) acetaminophen 500 mg tablet 1,000 mg PO PRN 11/21/20 10/09/23 Unknown History (Tylenol Extra Strength) amlodipine 10 mg tablet 10 mg PO BEDTIME 11/21/20 10/09/23 1 Day Ago History ~10/08/23 ibuprofen 200 mg tablet 200 mg PO PRN 11/21/20 10/09/23 Unknown History multivitamin with iron-mineral 1 tab PO QAM 11/21/20 10/09/23 1 Day Ago History ~10/08/23 tamsulosin 0.4 mg capsule 0.4 mg PO QAM 11/21/20 10/09/23 1 Day Ago History ~10/08/23 insulin aspart U-100 100 unit/mL 10 unit SUBCUT TID 02/16/21 10/09/23 1 Day Ago History (3 mL) subcutaneous pen (Novolog ~10/08/23 FlexPen U-100 Insulin aspart) insulin glargine 100 unit/mL 54 unit SUBCUT DAILY@02/16/21 10/09/23 1 Day Ago History subcutaneous solution (Lantus ~10/08/23 U-100 Insulin) ipratropium bromide 21 mcg (0.03 1 spray intranasal BID PRN Allergy 02/16/21 10/09/23 11/21/22 05:00 History %) nasal spray Symptoms aspirin 81 mg tablet,delayed 81 mg PO DAILY 11/22/22 10/09/23 10/09/23 History release (Adult Low Dose Aspirin) pregabalin 50 mg capsule 75 mg PO BID 05/27/23 10/09/23 1 Day Ago History ~10/08/23 Allergies Allergy/AdvReac Type Severity Reaction Status Date / Time No Known Allergies Allergy Verified 10/09/23 08:53 [facility] Anesthesia Medical History (Updated 09/08/23 @ 14:09 by Guillermo Duenas MD) Peripheral vascular disease PAD (peripheral artery disease) Peripheral vascular disease Bilateral carotid artery stenosis Sleep apnea COPD (chronic obstructive pulmonary disease) Hypertension Seizure disorder Hearing loss History of left common carotid artery stent placement GERD (gastroesophageal reflux disease) Diabetes Surgical History (Updated 09/08/23 @ 14:09 by Guillermo Duenas MD) Status post laparoscopic cholecystectomy (12/01/19) H/O knee surgery History of back surgery S/P appendectomy Status post colonoscopy with polypectomy H/O esophagogastroduodenoscopy Family History Other CAD (coronary artery disease) Cancer Dementia Diabetes Hyperlipidemia Hypertension Postsurgical cardiac pacemaker in situ Stroke Social History Smoking and tobacco/nicotine status: former use of tobacco/nicotine Quit status (tobacco/nicotine): has quit using Alcohol intake: current Alcohol intake frequency: holidays/special occasions only Substance/Drug Use: never Data Anesthesia Cardiac Studies: Echocardiogram Ultrasound 09/01/20
[2023-10-09 10:16] LABS: Add Urine Microscopic? NO; Charge for UA Resulting for Rev
[2023-10-09 10:27] LABS: Basophils # 0.1 10^3/uL (0.0-0.1); Basophils % 0.7 %; Eosinophils # 0.4 10^3/uL (0.0-0.8); Eosinophils % 6.2 %; Hematocrit 40.8 % (37-53); Lymphocytes # 1.1 10^3/uL (0.8-4.8); Lymphocytes % 15.6 %; Mean Corpuscular HGB Conc 33.8 g/dL (30-55); Mean Corpuscular Hemoglobin 31.8 pg (27-33); Mean Platelet Volume 11.6 fL (7.4-10.4); Monocytes # 0.8 10^3/uL (0.2-0.9); Monocytes % 11.8 %; Neutrophils # 4.52 10^3/uL (1.8-7.7); Neutrophils % 65.4 %; Nucleated Red Blood Cells % 0 %; Platelet Count 202 10^3/cmm (157-399); Red Blood Count 4.34 10^6/uL (3.85-5.65); Red Cell Distribution Width 13.5 % (12.1-15.1); White Blood Count 6.92 10^3/uL (3.29-11.43)
[2023-10-09 10:28] LABS: Protein Urine Neg (Negative); Specific Gravity, Urine 1.015 (1.005-1.030); Urine Appearance Clear (CLEAR); Urine Color Yellow (Yellow); pH Urine 6.5 (5-7)
[2023-10-09 10:29] LABS: Bilirubin Urine Neg (Negative); Blood Urine Neg (Negative); Glucose Urine UA 1+ (Normal); Ketones Urine Negative (Negative); Leukocyte Esterase Urine Negative (Negative); Nitrate Urine Negative (Negative); Urobilinogen Urine Norm (Negative)
[2023-10-09 10:41] LABS: Anion Gap 15.5 (5-19); Blood Urea Nitrogen 11 mg/dL (8-23); Carbon Dioxide 27 mmol/L (22-29); Chloride 96 mmol/L (98-107); Glucose 238 mg/dL (65-115); Osmolality Calculated 285 mOsm/kg (285-295); Potassium 4.5 mmol/L (3.5-5.1); Sodium 134 mmol/L (136-145)
--- NOTE | 2023-10-13 06:43 | XRR_ITS ---
PROCEDURE INFORMATION: Exam: XR Chest Exam date and time: 10/13/2023 7:22 AM Age: 78 years old Clinical indication: Pre-operative exam; Cardiovascular screening and respiratory screening exam; Additional info: Pre-op carotid surgery; HX of granulomas TECHNIQUE: Imaging protocol: Radiologic exam of the chest. Views: 1 view. COMPARISON: CR XR chest 1V portable [id number] 12/05/2020 10:03 AM FINDINGS: Lungs: Unremarkable. No consolidation. Pleural spaces: Unremarkable. No pleural effusion. No pneumothorax. Heart/Mediastinum: Unremarkable. No cardiomegaly. Bones/joints: Unremarkable. XR/XR chest 1V portable [id number] IMPRESSION: No acute findings.
[2023-10-13 07:01] VITALS: BP 164/60; PULSE 68; RESP 18; TEMP 36.4; O2SAT 98
[2023-10-13 07:02] VITALS: BMI 28.4
[2023-10-13 07:13] LABS: Glucose Point of Care 142 mg/dL (70-110)
[2023-10-13] MEDS: sodium chloride 0.9% 1,000 ML 30 ML IV (07:26)
--- NOTE | 2023-10-13 08:09 | P.HP_ITS ---
Providers/Chief Complaint 2 Admitting Physician: Dr. Duenas Primary Care Provider: Pete Pope DO Chief Complaint: I65.29 History of Present Illness Fidel Holliday is an 78 year old male whom I first met back in April of last year upon referral for a right carotid bruit. He has a prior history for stenting of the left internal carotid artery back in 2014 following a left hemispheric CVA in [place], [place]. Carotid duplex imaging performed after his noted bruit revealed an ICA/CCA ratio of 2.45 on the right and 1.37 on the left. Peak velocity of 195 cm/s in the right mid ICA at that time. We separately ordered a CTA and he followed back up with us on May 27 of last year. CTA documented a 76% right ICA stenosis. He remained asymptomatic. At that time, he was planning to travel to [place] for a family wedding in June and wished for follow-up back in July. Repeat duplex imaging was completed August 27 and indeed revealed further increase in the velocities of the right ICA up to 239 cm/s with an ICA/CCA ratio 3.74. We discussed these findings with he and his by phone and confirmed that we still recommended consideration for intervention to his right carotid artery. With original presentation and discussion concerning intervention, he had tentatively planned for a carotid stent on the right side similar to what he had performed on the left in [place] in 2014. We therefore recommended referral for carotid stenting as this is not performed here at [facility]. Upon this referral, he reported to us that he was informed that this would be 2 to 3 months prior to his planned intervention. After further discussions with his and family, he subsequently notified us that he wished to proceed with plans for right carotid endarterectomy, stating he has summer travel plans. I discussed very frankly with he and his about the different technique for carotid endarterectomy versus carotid stenting as well as the intrinsic risks related to open procedure including potential for temporary or permanent vocal cord paralysis from nerve injury, hypoglossal nerve injury resulting in deviation of the tongue, infection risk, as well as facial paresthesias with possible facial asymmetry and a 2 to 3% intrinsic stroke risk related to the procedure. He stated he and his have discussed this matter extensively and performed their own research and wishes to proceed with plans for open carotid endarterectomy. Again, he has no neurologic symptoms, amaurosis, or history for recent TIA. Review of Systems 2 Const: Denies: fever(s), chills, change in appetite, change in weight, fatigue or night sweats Eyes: Denies: change in vision or blurry vision ENMT: Denies: odynophagia or hoarseness Card: Denies: chest pain, palpitations, irregular heart rhythm or edema Resp: Denies: dyspnea or productive cough GI: Denies: abdominal pain, nausea, vomiting, dysphagia, heartburn or change in bowel habits : Denies: difficulty urinating, dysuria, urinary frequency, urinary urgency or urinary hesitancy Musc: Denies: extremity pain or extremity swelling Skin/Breast: Denies: rash Neuro: Denies: headache(s), numbness in extremities, weakness in extremities or sensory changes Psych: Denies: anxiety, depression or change in appetite Endo: Denies: polyuria, polydipsia or cold intolerance Brando/Lymph: Denies: easy bruising, easy bleeding, petechiae or enlarged lymph nodes Medications/Allergies Home Medications Medication Instructions Recorded Confirmed Last Taken Type albuterol sulfate 90 mcg/actuation 2 inh inhalation Q6H PRN breathing 11/08/19 10/09/23 10/15/20 08:00 History breath activated powder inhaler cetirizine 10 mg capsule 10 mg PO QPM 11/08/19 10/13/23 10/12/23 History losartan 100 mg tablet 100 mg PO QAM 11/08/19 10/13/23 10/12/23 History montelukast 10 mg tablet 10 mg PO QPM 11/08/19 10/13/23 10/12/23 History (Singulair) pantoprazole 40 mg tablet,delayed 40 mg PO QAM 11/08/19 10/13/23 10/12/23 History release simvastatin 20 mg tablet 10 mg PO QPM 11/08/19 10/13/23 10/12/23 History metoprolol tartrate 50 mg tablet 25 mg PO BID 08/28/20 10/13/23 10/12/23 History Probiotic 1 tab PO QPM 08/31/20 10/13/23 10/12/23 History Vitamin D3 1 tab PO QAM 08/31/20 10/13/23 10/12/23 History fluticasone propionate 50 1 spray intranasal BID 08/31/20 10/13/23 10/12/23 History mcg/actuation nasal spray,suspension (Flonase Allergy Relief) acetaminophen 500 mg tablet 1,000 mg PO PRN 11/21/20 10/09/23 Unknown History (Tylenol Extra Strength) amlodipine 10 mg tablet 10 mg PO BEDTIME 11/21/20 10/13/23 10/12/23 History ibuprofen 200 mg tablet 200 mg PO PRN 11/21/20 10/09/23 Unknown History multivitamin with iron-mineral 1 tab PO QAM 11/21/20 10/13/23 10/12/23 History tamsulosin 0.4 mg capsule 0.4 mg PO QAM 11/21/20 10/13/23 10/12/23 History insulin aspart U-100 100 unit/mL 10 unit SUBCUT TID 02/16/21 10/13/23 10/12/23 History (3 mL) subcutaneous pen (Novolog FlexPen U-100 Insulin aspart) insulin glargine 100 unit/mL 54 unit SUBCUT DAILY@02/16/21 10/13/23 10/12/23 History subcutaneous solution (Lantus U-100 Insulin) ipratropium bromide 21 mcg (0.03 1 spray intranasal BID PRN Allergy 02/16/21 10/09/23 11/21/22 05:00 History %) nasal spray Symptoms aspirin 81 mg tablet,delayed 81 mg PO DAILY 11/22/22 10/09/23 10/09/23 History release (Adult Low Dose Aspirin) pregabalin 50 mg capsule 75 mg PO BID 05/27/23 10/13/23 10/12/23 History Allergies Allergy/AdvReac Type Severity Reaction Status Date / Time No Known Allergies Allergy Verified 10/13/23 06:47 PFSH Acute 2 PFSH: Medical History Peripheral vascular disease PAD (peripheral artery disease) Peripheral vascular disease Bilateral carotid artery stenosis Sleep apnea COPD (chronic obstructive pulmonary disease) Hypertension Seizure disorder Hearing loss History of left common carotid artery stent placement GERD (gastroesophageal reflux disease) Diabetes Surgical History Status post laparoscopic cholecystectomy (12/01/19) H/O knee surgery History of back surgery S/P appendectomy Status post colonoscopy with polypectomy H/O esophagogastroduodenoscopy Family History Other CAD (coronary artery disease) Cancer Dementia Diabetes Hyperlipidemia Hypertension Postsurgical cardiac pacemaker in situ Stroke Social History Smoking and tobacco/nicotine status: former use of tobacco/nicotine Quit status (tobacco/nicotine): has quit using Alcohol intake: current Alcohol intake frequency: holidays/special occasions only Substance/Drug Use: never Vitals/I&O/Wt Last Vital Signs Temp 97.6 F 10/13/23 07:01 Pulse 68 10/13/23 07:01 Resp 18 10/13/23 07:01 BP 164/60 10/13/23 07:01 Pulse Ox 98 10/13/23 07:01 O2 Del Method Room Air 10/13/23 07:01 Weight last 48 hrs Weight 198 lb Physical Exam 2 Const: COMMON NORMALS: patient oriented x3 and alert O RIENTATION/CONSCIOUSNESS: Yes oriented to person, Yes oriented to place and Yes oriented to time HENMT: COMMON NORMALS: normocephalic HEAD & SCALP: normocephalic Neck/C-Spine: COMMON NORMALS: full ROM and supple GENERAL: Yes trachea midline CAROTIDS: Yes bruit positive right and No Carotid tenderness present CERVICAL SPINE: Yes cervical ROM normal Chest: COMMONS NORMALS: normal inspection of the chest and normal palpation of entire chest wall Resp: COMMON NORMALS: normal respiratory effort, No use of accessory muscles, clear to auscultation bilaterally and percussion normal EFFORT & INSPECTION: Yes able to speak in complete sentences and Yes symmetric chest movement A USCULTATION: clear to auscultation bilaterally PERCUSSION: percussion normal Cardio: COMMON NORMALS: regular rate, regular rhythm, S1 normal heart sound present, S2 normal heart sound present, No gallops present (Cardio), No murmurs present (Cardio), No rub (Cardio) and Peripheral pulses 2+ throughout RATE: r egular rate RHYTHM: regular rhythm HEART SOUNDS: S1 normal heart sound present and S2 normal heart sound present PERIPHERAL PULSES: radial pulses present positive bilateral 2+ GI: COMMON NORMALS: Normal to inspection, nondistended, normoactive bowel sounds present, Soft to palpation and non-tender INSPECTION: Yes central obesity Extremity: COMMON NORMALS: no clubbing, cyanosis or edema Neuro: COMMON NORMALS: patient oriented x3, no focal motor deficits and no sensory deficits noted SENSORIUM/ORIENTATION: Yes alert, Yes oriented to person, Yes oriented to place and Yes oriented to time GAIT: Yes Normal gait present Data 10/09/23 09:40 10/09/23 09:40 A&P Assessment and plan (1) Asymptomatic stenosis of right carotid artery without infarction: 78-year-old gentleman with 76% right ICA stenosis. Options for intervention to reduce his statistically increased risk for spontaneous CVA related to this lesion were discussed. Option to consider carotid stenting with referral to a tertiary facility versus open endarterectomy at [facility] was again carefully discussed. He and his have had extensive conversations about this and wished to proceed with plans for surgery here. Increased risk related to open endarterectomy were again carefully discussed as well as unique aspects and potential risk as compared to carotid stenting. They both stated understanding of this and reviewed our informed consent form prior to signing. I again carefully reviewed with him that this would not eliminate his risk for stroke but hopefully reduce it to that of the normal population without substantial carotid stenosis. He stated understanding and his stated we will put it in God's hands . They appear comfortable with the decision for open endarterectomy and stated I have discussed this with her children as well. Attestations 2 Medical Necessity Statement*: 76% right internal carotid artery stenos is with prior history for left hemispheric CVA status post left carotid stenting Coding Level of Care Code Acute Code for [facility] Fwd Diagnoses Asymptomatic stenosis of right carotid artery without infarction I65.21
[2023-10-13] MEDS: ceFAZolin 2,000 MG in sodium chloride 0.9% (plus) 50 ML 100 MG IV (08:32)
[2023-10-13] MEDS: heparin, porcine 1,000 unit/mL INJ 10 mL 1000 UNIT IRRIGATION (09:27)
[2023-10-13] MEDS: vancomycin 1,000 MG SDV 1000 MG IRRIGATION (09:27)
--- NOTE | 2023-10-13 12:35 | ANE.PACU2 ---
Inpatient post-anesthesia follow up: Airway intact: Yes Vital signs: Temperature 97.6 F Pulse Rate 57 Respiratory Rate 14 Blood Pressure 164/60 Pulse Oximetry 94 Oxygen Delivery Me thod Room Air Oxygen Flow Rate Fraction of Inspir ed Oxygen Hydration adequate: Yes Nausea and vomiting: No Pain level: 1 Mental status: Baseline
--- NOTE | 2023-10-13 12:36 | PM.OP ---
Operative Report Date of procedure: October 13, 2023 Pre-op diagnosis: 76% right cervical internal carotid artery stenosis Post-op diagnosis: same Procedure done: Right carotid endarterectomy with patch angioplasty Implants: Initial patch Specimens removed/disposition: Carotid plaque Surgeon: Guillermo Duenas MD Anesthesia: General Complications: None: Neurologically intact immediately postop Condition: stable Disposition: ICU Brief History: Mr. Holliday is a pleasant 78-year-old gentleman with a 76% right cervical internal carotid artery stenosis. Recommendation was made for correction related to his increasing physical risk for spontaneous CVA related to this high-grade lesion. Options to consider carotid stenting, which have been previously performed in 2015 on his left side following a CVA in [facility], or open carotid endarterectomy were discussed. After consideration and discussion with family members as well as timing of availability for either procedure, he was to proceed with carotid endarterectomy at [facility]. Details the risk of the procedure were carefully and frankly discussed as well as the attendant risk related to open surgery including nerve injury resulting in deviation of the tongue, temporary or permanent hoarseness, facial symmetry, or major stroke. He and his stated understanding, appropriate consents were reviewed and signed, and he wished to proceed. Procedure: Mr. Holliday was placed on the OR table and underwent general endotracheal anesthesia with a neurological monitoring endotracheal tube as well as placement of a [right/left] radial arterial line. Bihemispheric monitoring pads were placed as well as grounding and sensing pads for nerve conduction evaluation during neck dissection.The entire upper chest and [right/left] neck were sterilely prepped and draped. Preoperative timeout was performed and completed by all surgical and anesthesia members present. Incision was made along the anterior border of the sternomastoid muscle and carried down to the platysma with cautery. Dissection from this point forward was carried out utilizing Metzenbaum scissors and limited use of bipolar cautery. The internal jugular vein was dissected free and the facial vein was ligated, oversewn, and divided. Dissection was continued down through the ansa cervicalis with preservation of major branches. Minor branches were divided if required to allow for adequate exposure. Nerve conduction evaluation was performed throughout the dissection for protection of the recurrent nerve. We subsequently reached the common carotid artery. Dissection was then continued proximally to distally across the bifurcation. Vessel loops were placed around the common carotid artery, internal carotid artery, and external carotid artery. Distally, the base of the hypoglossal nerve could be identified and was protected. The internal carotid artery disease went fairly high and extended above the level of the mandibular angle. This did require some traction in this region, but great care was taken to minimize pressure to the hypoglossal nerve, which was protected. Care was taken during this dissection to avoid injury to the vagus nerve. The patient was then heparinized with 10,000 units. The systolic blood pressure was elevated to 160. Following this, in a rapid sequenced fashion, the distal internal carotid artery was clamped followed by clamping of the common carotid artery and external carotid artery. #11 scalpel blade was used to open the common carotid artery proximally. Gaming scissors were then utilized to extend this arteriotomy across the distal common carotid artery and ulcerated very stenotic plaque and continue this further at the bifurcation across the calcific plaque in the internal carotid artery until we had reached normal intima. The internal carotid artery clamp was briefly flashed with evidence of brisk back bleeding, therefore we elected not to shunt. It should be noted that bi-hemispheric oximetry was recorded throughout the procedure. Next, a freer elevator was utilized to create a dissection plane the plaque from intima at the proximal portion of the arteriotomy. This was then divided with a #11 scalpel blade. This plaque was then further dissected along the intimal plane proximally to distally across the bifurcation. Utilizing an everting technique, plaque was removed from the external carotid artery with brisk flow. This plaque was then dissected free up the internal carotid artery to a feathered edge. Heparinized saline solution was utilized to remove any loose debris. Next, a Hemashield patch was brought into the field and sewn into position utilizing a running 6-0 Prolene suture, thereby completing our patch angioplasty. At the completion of the patch, the external carotid artery was opened followed by the common carotid artery and finally the internal carotid artery, thereby reestablishing cerebral flow. Areas of extravasation were repaired with 6-0 Prolene suture. After 5 minutes, heparin was reversed with protamine. Hemostasis was confirmed. The wound was irrigated with antibiotic solution. A small, flat, Edilberto-Kent drain was placed in the wound and connected to bulb suction. Sponge and needle count was correct. The wound was then closed in 2 layers of 3-0 Vicryl suture. Skin was reapproximated in a subcuticular manner with 4-0 Monocryl suture. A pressure dressing was then applied. Mr. Holliday was awakened from anesthesia and spontaneous movement of all extremities as well as movement to command was noted. He was then transferred to the ICU in stable condition. I did educational guidance counselor with his at completion of the procedure. Mr. Holliday will be monitored in the ICU for the next 24 hours.
[2023-10-13 12:37] VITALS: BMI 28.8
[2023-10-13 13:05] VITALS: PULSE 57; RESP 14; O2SAT 94
[2023-10-13] MEDS: lactated ringers 1,000 ML 100 ML IV ×2 (13:18→23:29)
[2023-10-13] MEDS: aspirin 81 mg Chew Tablet PO (13:18)
[2023-10-13 13:32] LABS: Glucose Point of Care 179 mg/dL (70-110)
[2023-10-13] MEDS: insulin lispro 100 unit/1 mL SUBCUT ×3 (13:59→21:09)
--- NOTE | 2023-10-13 17:10 | P.PN_ITS ---
Subjective 2 Subjective: Patient is doing well conversing with his . Vital signs have been stable. He does complain of a light headache but has refused Tylenol. No neurologic concerns. Low YEMI drain output. Phonation is normal. No swallowing difficulties. Vitals/I&O/Wt Last Vital Signs Temp 97.6 F 10/13/23 07:01 Pulse 57 L 10/13/23 13:05 Resp 14 10/13/23 13:05 BP 164/60 10/13/23 07:01 Pulse Ox 94 10/13/23 13:05 O2 Del Method Room Air 10/13/23 13:05 10/13/23 10/13/23 10/13/23 06:59 14:59 22:59 Intake Total 206 / 206 Balance 206 / 206 Weight last 48 hrs Weight 200 lb 9 oz Weight 198 lb Physical Exam 2 Const: COMMON NORMALS: patient oriented x3 Neck/C-Spine: OTHER: Neck dressing is clean and dry. There is no evidence for slow swelling or fluid collection. No breathing difficulties. Neuro: COMMON NORMALS: patient oriented x3, moves all extremities, no focal motor deficits, no sensory deficits noted and gait normal Urinary Catheter Management: Harris: Cath Placed During This Visit: yes Urinary Catheter Date of Insertion: 10/13/23 Urinary Catheter Time of Insertion: 09:14 Data 10/09/23 09:40 10/09/23 09:40 A&P Assessment and plan (1) History of right-sided carotid endarterectomy: Right CEA ordered today. Appears to be recovering well in the early postop period. Plan: DC Harris catheter. DC arterial line. Patient has received 81 mg aspirin earlier today. 81 mg aspirin in AM. Up in chair with assist. Discharge planning. Attestations 2 Medical Necessity Statement*: Status post right CEA Coding Level of Care Code Acute Code for [facility] Fwd Diagnoses History of right-sided carotid endarterectomy Z98.890
[2023-10-13] MEDS: atorvastatin 40 mg Tablet PO (18:31)
[2023-10-13] MEDS: cetirizine 10 mg Tablet PO (18:31)
[2023-10-13] MEDS: metoprolol tartrate 50 mg Tablet 25 MG PO (18:32)
[2023-10-13] MEDS: montelukast sodium 10 mg Tablet PO (18:32)
[2023-10-13 18:40] LABS: Glucose Point of Care 187 mg/dL (70-110)
[2023-10-13] MEDS: pregabalin 75 mg Capsule PO (18:45)
[2023-10-13 21:00] LABS: Glucose Point of Care 160 mg/dL (70-110)
[2023-10-13] MEDS: amlodipine 10 mg Tablet PO (21:09)
[2023-10-13] MEDS: fluticasone nasal spray 16gm Btl 1 SPRAY INTRANASAL (21:10)
--- NOTE | 2023-10-14 01:58 | PC.NURSE ---
Arterial line removed from right wrist, no hematoma at insertion site, dressing applied, has remained CDI.
[2023-10-14 05:20] VITALS: BP 132/56
[2023-10-14] MEDS: tamsulosin 0.4 mg Capsule 0.400000000000000022 MG PO (05:20)
[2023-10-14] MEDS: losartan 50 mg Tablet 100 MG PO (05:20)
--- NOTE | 2023-10-14 06:46 | PM.DCS ---
Discharge Providers Date of Admission: 10/13/23 12:20 Date of Discharge: October 14, 2023 Attending Provider at Admission: Guillermo Duenas MD Attending Provider at Discharge: Guillermo Duenas MD Primary Care Provider: Pete Pope DO Diagnoses at Discharge Discharge Diagnosis (1) History of right-sided carotid endarterectomy: Details from hospital stay: Mr. Holliday is an 78-year-old gentleman with an 76% right ICA stenosis. Recommendation for prophylactic endarterectomy versus carotid stenting was carefully discussed to reduce his statistical increased risk for spontaneous CVA related to his high-grade lesion. Related to scheduling of summer activities and after conversation and discussions with his and family, he was to proceed with open repair with carotid endarterectomy versus carotid stenting. Details and risk of the surgery were carefully and frankly discussed and preoperative planning was completed. He was electively admitted to the on October 12 and underwent right carotid endarterectomy with patch angioplasty. Postoperatively, he has convalesced in the ICU where he was remained hemodynamically and neurologically stable. No phonation or swallowing difficulties. Tongue is midline with protrusion. Surgical dressing is remain clean and dry. Drain output has been 25 cc overnight. YEMI drain was discontinued this morning. Surgical dressing was removed and replaced. Incision line is clean, dry and intact. He is tolerating diet well without difficulties. He is in good spirits. No neurologic concerns or abnormal findings identified. Mr. Holliday will be discharged to home today in stable condition. Discharge instructions have been carefully reviewed with him and will be reviewed with his when she arrives prior to his exit from the facility later this morning. He will follow-up in our clinic in 1 week. Contact information has been provided and he has been encouraged to call us should he have any concerns or questions. At the time of discharge, he is in stable condition. Status: Acute Reason for Visit Reason for Visit: I65.29 Physical Exam Const: COMMON NORMALS: patient oriented x3 Neck/C-Spine: COMMON NORMALS: full ROM and no lymphadenopathy OTHER: Surgical site is clean and dry. YEMI drain was removed without difficulty. Resp: COMMON NORMALS: normal respiratory effort and clear to auscultation bilaterally AUSCULTATION: clear to auscultation bilaterally Cardio: COMMON NORMALS: regular rate, regular rhythm, S1 normal heart sound present and No murmurs present (Cardio) RATE: regular rate RHYTHM: regular rhythm HEART SOUNDS: S1 normal heart sound present Extremity: COMMON NORMALS: no clubbing, cyanosis or edema Neuro: COMMON NORMALS: patient oriented x3, moves all extremities, no focal motor deficits and no sensory deficits noted Urinary Catheter Management: Harris: Cath Placed During This Visit: yes, but has since been removed by the nurse Reason for Continuing Indwelling Catheter: Accurate Measurement of Urinary Output in Critically Ill Patients Urinary Catheter Date of Insertion: 10/13/23 Urinary Catheter Time of Insertion: 09:14 Date Urinary Catheter Removed: 10/13/23 Time Urinary Catheter Discontinued: 18:25 Discharge Data Studies Completed and Pending Completed Studies During Hospitalization Category Date Time Status XR chest 1V portable 30005 Routine Exams 10/13/23 06:43 Completed Pending at discharge Category Date Time Status Leukocyte Reduced RBC Routine Lab 10/09/23 09:40 Results Type and Screen - Cardiac Routine Lab 10/09/23 09:40 Results Type and Screen Routine Lab 10/09/23 08:47 Uncollected Pathology: Surgical [PTH] Routine Pth 10/13/23 10:08 Received Radiology Impressions Chest X-Ray 10/13/23 06:43 IMPRESSION: No acute findings. Laboratory Results WBC 6.92 10^3/uL (3.29-11.43) 10/09/23 09:40 RBC 4.34 10^6/uL (3.85-5.65) 10/09/23 09:40 Hgb 13.80 g/dL (11.27-16.99) 10/09/23 09:40 Hct 40.8 % (37-53) 10/09/23 09:40 MCV 94.0 fl (82-101) 10/09/23 09:40 MCH 31.8 pg (27-33) 10/09/23 09:40 MCHC 33.8 g/dL (30-55) 10/09/23 09:40 RDW 13.5 % (12.1-15.1) 10/09/23 09:40 Plt Count 202 10^3/cmm (157-399) 10/09/23 09:40 MPV 11.6 fL (7.4-10.4) H 10/09/23 09:40 Neut % (Auto) 65.4 % 10/09/23 09:40 Lymph % (Auto) 15.6 % 10/09/23 09:40 Brantley % (Auto) 11.8 % 10/09/23 09:40 Eos % (Auto) 6.2 % 10/09/23 09:40 Baso % (Auto) 0.7 % 10/09/23 09:40 Neut # (Auto) 4.52 10^3/uL (1.8-7.7) 10/09/23 09:40 Lymph # (Auto) 1.1 10^3/uL (0.8-4.8) 10/09/23 09:40 Brantley # (Auto) 0.8 10^3/uL (0.2-0.9) 10/09/23 09:40 Eos # (Auto) 0.4 10^3/uL (0.0-0.8) 10/09/23 09:40 Baso # (Auto) 0.1 10^3/uL (0.0-0.1) 10/09/23 09:40 Nucleated RBC % (auto) 0 % 10/09/23 09:40 Nucleated RBCs # 0.0 /100WBC 10/09/23 09:40 Sodium 134 mmol/L (136-145) L 10/09/23 09:40 Potassium 4.5 mmol/L (3.5-5.1) 10/09/23 09:40 Chloride 96 mmol/L (98-107) L 10/09/23 09:40 Carbon Dioxide 27 mmol/L (22-29) 10/09/23 09:40 Anion Gap 15.5 (5-19) 10/09/23 09:40 BUN 11 mg/dL (8-23) 10/09/23 09:40 Creatinine 0.8 mg/dL (0.7-1.2) 10/09/23 09:40 GFR Calculation Not Reportable 10/09/23 09:40 Glucose 238 mg/dL (65-115) H 10/09/23 09:40 POC Glucose 160 mg/dL (70-110) H 10/13/23 20:56 Calculated Osmolality 285 mOsm/kg (285-295) 10/09/23 09:40 Calcium 9.0 mg/dL (8.5-10.5) 10/09/23 09:40 Urine Color Yellow (Yellow) 10/09/23 09:40 Urine Appearance Clear (CLEAR) 10/09/23 09:40 Urine pH 6.5 (5-7) 10/09/23 09:40 Ur Specific Guthrie 1.015 (1.005-1.030) 10/09/23 09:40 Urine Protein Neg (Negative) 10/09/23 09:40 Urine Glucose (UA) 1+ (Normal) H 10/09/23 09:40 Urine Ketones Negative (Negative) 10/09/23 09:40 Urine Blood Neg (Negative) 10/09/23 09:40 Urine Nitrate Negative (Negative) 10/09/23 09:40 Urine Bilirubin Neg (Negative) 10/09/23 09:40 Urine Urobilinogen Norm mg/dL (Negative) 10/09/23 09:40 Ur Leukocyte Esterase Negative (Negative) 10/09/23 09:40 Blood Type A Positive 10/09/23 09:40 Rho(D) Type Rh positive 10/09/23 09:40 Antibody Screen Negative 10/09/23 09:40 Crossmatch See Detail 10/09/23 09:40 Procedures Performed Right carotid endarterectomy with patch angioplasty on October 13, 2023 Vitals Last Vital Signs Temp 97.6 F 10/13/23 07:01 Pulse 57 L 10/13/23 13:05 Resp 14 10/13/23 13:05 BP 132/56 10/14/23 05:20 Pulse Ox 94 10/13/23 13:05 O2 Del Method Room Air 10/13/23 13:05 Discharge Plan Discharge Prescriptions: New hydrocodone-acetaminophen 5-325 mg Tablet 1 tab PO Q6H PRN (Reason: Moderate Pain) Qty: 16 0RF sulfamethoxazole-trimethoprim [Bactrim DS] 800-160 mg tablet 1 tab PO BID Qty: 6 0RF Continued albuterol sulfate 90 mcg/actuation aerosol powdr breath activated 2 inh INHALATION Q6H PRN (Reason: breathing) cetirizine 10 mg capsule 10 mg PO QPM losartan 100 mg tablet 100 mg PO QAM montelukast [Singulair] 10 mg tablet 10 mg PO QPM pantoprazole 40 mg tablet,delayed release (DR/EC) 40 mg PO QAM simvastatin 20 mg tablet 10 mg PO QPM metoprolol tartrate 50 mg tablet 25 mg PO BID pregabalin 50 mg capsule 75 mg PO BID aspirin [Adult Low Dose Aspirin] 81 mg tablet,delayed release (DR/EC) 81 mg PO DAILY fluticasone propionate [Flonase Allergy Relief] 50 mcg/actuation Paton,Suspension 1 spray intranasal BID Probiotic 1 tab PO QPM Vitamin D3 1 tab PO QAM insulin aspart U-100 [Novolog FlexPen U-100 Insulin] 100 unit/mL (3 mL) insulin pen 10 unit SUBCUT TID Rx Instructions: sometimes uses less and sometimes uses more-pt states mostly 10 units tid acetaminophen [Tylenol Extra Strength] 500 mg Tablet 1,000 mg PO PRN tamsulosin 0.4 mg capsule 0.4 mg PO QAM amlodipine 10 mg tablet 10 mg PO BEDTIME ibuprofen 200 mg Tablet 200 mg PO PRN multivitamin with iron-mineral Tablet 1 tab PO QAM Lantus U-100 Insulin 100 unit/mL solution 54 unit SUBCUT DAILY@21 ipratropium bromide 21 mcg (0.03 %) spray,non-aerosol 1 spray INTRANASAL BID PRN (Reason: Allergy Symptoms) Discharge Orders: Discharge Order (Routine); Ordered 10/14/23 Ordered By: Guillermo Duenas Referrals: Guillermo Duenas MD [Physician] - 1 week Discharge Diet: Diabetic Discharge Activity: Limit activity as instructed Patient Instructions: Opioid Safety Activity Restrictions/Additional Instructions: May remove bandage in 2 days May begin daily showers in 3 days Dry incision carefully after showers. May re-cover if desired to prevent irritation from clothing. No swimming or tub baths x 2 weeks No ointments on incision Report drainage, redness, heat, fever, increased pain, or swelling to clinic No heavy lifting or pulling x 2 weeks Take Bactrim DS 1 p.o. twice daily for next 3 days May resume all home medications Discharge Attestations Time Spent in Discharge Care*: less than 30 min Specific Discharge Activities: educating patient, discussing with child welfare caseworker/social workers/dc planners, documenting/other paperwork and evaluating patient/reviewing data Status at Discharge: Cognitive status at discharge: cognitively intact, Behavioral status at discharge: cooperative, Functional status at discharge: independent ambulation, Overall status at discharge: patient is back to baseline Quality Metrics Clinical Quality Measures [ No reported AMI, CVA or VTE this stay] Coding Level of Care Code Acute Code for Chg Fwd Diagnoses History of right-sided carotid endarterectomy Z98.890
[2023-10-14 07:00] VITALS: BP 126/52; PULSE 62; RESP 15; O2SAT 96
--- NOTE | 2023-10-14 07:17 | PC.NURSE ---
Dr. Ferrera came to bedside, removed drain, gave D/C orders
[2023-10-14 08:11] LABS: Glucose Point of Care 210 mg/dL (70-110)
[2023-10-14 08:12] LABS: Glucose Point of Care 354 mg/dL (70-110)
--- NOTE | 2023-10-14 08:14 | PC.NURSE ---
All D/C instructions educated to patient, signed D/C form
[2023-10-14] MEDS: aspirin 81 mg Chew Tablet PO (08:24)
[2023-10-14] MEDS: insulin lispro 100 unit/1 mL SUBCUT (08:24)
[2023-10-14] MEDS: metoprolol tartrate 50 mg Tablet 25 MG PO (08:24)
[2023-10-14] MEDS: pregabalin 75 mg Capsule PO (08:25)
[2023-10-14] MEDS: pantoprazole DR 40 mg Tablet PO (08:25)
[2023-10-14 08:38] VITALS: BP 135/49; PULSE 79; TEMP 37.1; O2SAT 96
[2023-10-14 09:19] VITALS: PULSE 60; RESP 16; O2SAT 93
--- NOTE | 2023-10-14 09:50 | PC.NURSE ---
patient out of facility transported by
== END 2023-10-14 09:55 | disposition home health service (06) | DRG 39 ==
LOC: ICU 12:32
PROVIDERS: Admitting Provider Thoracic Surgery (Cardiothoracic Vascular Surgery); PCP Emergency Medicine Emergency Medical Services; Visit Provider Thoracic Surgery (Cardiothoracic Vascular Surgery)
PROC: 03CK0ZZ Extirpation of Matter from Right Internal Carotid Artery, Open Approach (ICD-10-PCS; CPT 35301; principal; 2023-10-13 08:15)
DX: I65.21 Occlusion and stenosis of right carotid artery (principal); Z87.891 Personal history of nicotine dependence; E11.9 Type 2 diabetes mellitus without complications; Z79.4 Long term (current) use of insulin; I10 Essential (primary) hypertension; K21.9 Gastro-esophageal reflux disease without esophagitis; I73.9 Peripheral vascular disease, unspecified; Z86.73 Personal history of transient ischemic attack (TIA), and cerebral infarction without residual deficits; Z95.828 Presence of other vascular implants and grafts
CPT/HCPCS: 36416; 51702; 71045; 80048; 81003; 82962; 85025; 86850; 86900; 86920; 88304; 93005; 96372; J0330; J0690; J1100; J1644; J1815; J2371; J2405; J2704; J2720; J3010; J3370; J3490; J7030; J7120

== ENCOUNTER → 2023-10-27 14:59 | Outpatient (BNVA) | payer OTHER, SELFPAY | PROVIDERS: PCP Emergency Medicine Emergency Medical Services; Visit Provider Thoracic Surgery (Cardiothoracic Vascular Surgery) | DX: Z98.890 Other specified postprocedural states (principal) | CPT/HCPCS: 99024 ==

== ENCOUNTER 2023-12-08 08:35 | Outpatient (CLI) | payer OTHER, SELFPAY ==
--- NOTE | 2023-12-08 09:00 | USCV_ITS ---
Fidel Holliday Age: 78 Gender: M : 1945 Exam Date: 12/08/2023 08:46 Ordering Phys: Guillermo Duenas MD (Andy) ([email or web address]) Technologist: GENOVEVA Exam Location: [facility] [place] Indication: Stenosis. Recent Rt endarterectomy. Lt stent surg as well Risk Factors: Previous Vascular Surgery: Right Brachial BP: / Left Brachial BP: / Right Left Velocity (cm/s) Spectral Plaque Velocity (cm/s) Spectral Plaque Syst/Diast Broadening Syst/Diast Broadening 89.30/ 8.90 Prox CCA 101.50/ 19.50 100.20/0.00 Mid CCA 83.20 / 15.70 80.80/ 11.40 Distal CCA 74.50 / 15.70 76.50/ 11.30 Prox ICA 146.10/ 22.00 61.70/ 5.70 Mid ICA 119.10/ 18.60 97.10/ 8.70 Distal ICA 106.10/ 10.00 203.50 ECA 243.70 1.20 ICA/CCA 2.00 Antegrade Vertebral Antegrade 63.20/ 13.10 cm/s 75.40/ 14.10 cm/s Tri Subclavian Tri 201.9 140.8 0 0 FINDINGS comp 08/20 Velocities RIght ica improved post cea Left stent is patent CONCLUSIONS Intimal thickening in the common carotid arteries and internal carotid arteries bilaterally. Right ICA stenosis <50%. Right CEA Left ICA stenosis 50-69%. Stent is patent Normal antegrade Doppler flow noted in the right vertebral artery. Normal antegrade Doppler flow noted in the left vertebral artery. Adebayo Lu MD (Electronically Signed) Final Date: 08 Dec 2023 10:11 S
== END 2023-12-08 08:36 | disposition home or self-care (01) ==
LOC: RAD 08:36
PROVIDERS: PCP Emergency Medicine Emergency Medical Services; Visit Provider Thoracic Surgery (Cardiothoracic Vascular Surgery)
DX: I65.23 Occlusion and stenosis of bilateral carotid arteries (principal)
CPT/HCPCS: 93880

== ENCOUNTER 2023-12-27 19:09 | Inpatient (IN) | payer OTHER, MEDICARE, SELFPAY ==
[2023-12-27] VITALS (20 sets, daily range): BP systolic 166–225; BP diastolic 77–116; PULSE 88–108; RESP 10–20; O2SAT 91–97; BMI 28.4
--- NOTE | 2023-12-27 19:15 | ECG_ITS ---
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 Measurements Intervals Quinter Rate: 105 P: -85 IL: 231 QRS: -69 QRSD: 142 T: 80 QT: 337 QTc: 447 Interpretive Statements SINUS TACHYCARDIA WITH FIRST DEGREE AV BLOCK WITH OCCASIONAL VENTRICULAR PREMATURE COMPLEXES RIGHT BUNDLE BRANCH BLOCK [120+ ms QRS DURATION, UPRIGHT V1, 40+ ms S IN I/aVL/V4/V5/V6] LEFT ANTERIOR FASCICULAR BLOCK [QRS AXIS <= -45, QR IN I, RS IN II] LEFT VENTRICULAR HYPERTROPHY AND ST-T CHANGE [VOLTAGE CRITERIA PLUS ST/T ABNORMALITY] POSSIBLE SEPTAL MYOCARDIAL INFARCTION , OF INDETERMINATE AGE [30 ms Q WAVE IN V1/V2] Diffuse nonspecific ST changes Compared to ECG 10/09/2023 09:22:57 Right bundle-branch block now present Electronically Signed On 12-28-2023 11:40:46 CDT by Amadeo Aguilar M.D. [id number]
--- NOTE | 2023-12-27 19:24 | ECG_ITS ---
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 Measurements Intervals Rosalia Rate: 92 P: 99 ND: 255 QRS: -65 QRSD: 141 T: 77 QT: 380 QTc: 472 Interpretive Statements SINUS RHYTHM WITH FIRST DEGREE AV BLOCK WITH OCCASIONAL VENTRICULAR PREMATURE COMPLEXES RIGHT BUNDLE BRANCH BLOCK [120+ ms QRS DURATION, UPRIGHT V1, 40+ ms S IN I/aVL/V4/V5/V6] LEFT ANTERIOR FASCICULAR BLOCK [QRS AXIS <= -45, QR IN I, RS IN II] LEFT VENTRICULAR HYPERTROPHY AND ST-T CHANGE [VOLTAGE CRITERIA PLUS ST/T ABNORMALITY] POSSIBLE SEPTAL MYOCARDIAL INFARCTION , OF INDETERMINATE AGE [30 ms Q WAVE IN V1/V2] Compared to ECG 10/09/2023 09:22:57 Ventricular premature complex(es) now present Right bundle-branch block now present Left anterior fascicular block now present Left ventricular hypertrophy now present Electronically Signed On 12-28-2023 11:41:15 CDT by Amadeo Aguilar M.D. [id number]
--- NOTE | 2023-12-27 19:24 | XRR_ITS ---
PROCEDURE INFORMATION: Exam: XR Chest Exam date and time: 12/27/2023 7:41 PM Age: 78 years old Clinical indication: Angina pectoris; Patient HX: Chest pain; Copd; Cad TECHNIQUE: Imaging protocol: Radiologic exam of the chest. Views: 1 view. COMPARISON: CR XR chest 1V portable [id number] 10/13/2023 7:22 AM FINDINGS: Lungs: Unremarkable. No consolidation. Pleural spaces: Unremarkable. No pleural effusion. No pneumothorax. Heart/Mediastinum: Unremarkable. No cardiomegaly. Bones/joints: Unremarkable. XR/XR chest 1V portable [id number] IMPRESSION: No acute findings.
[2023-12-27 19:36] LABS: Basophils # 0.1 10^3/uL (0.0-0.1); Basophils % 0.5 %; Eosinophils # 0.4 10^3/uL (0.0-0.8); Eosinophils % 4.2 %; Hematocrit 42.7 % (37-53); Lymphocytes # 1.9 10^3/uL (0.8-4.8); Lymphocytes % 20.7 %; Mean Corpuscular HGB Conc 34.2 g/dL (30-55); Mean Corpuscular Hemoglobin 31.2 pg (27-33); Mean Corpuscular Volume 91.2 fl (82-101); Mean Platelet Volume 10.9 fL (7.4-10.4); Monocytes # 1.1 10^3/uL (0.2-0.9); Monocytes % 11.9 %; Neutrophils # 5.69 10^3/uL (1.8-7.7); Neutrophils % 62.5 %; Nucleated Red Blood Cells % 0 %; Platelet Count 249 10^3/cmm (157-399); Red Blood Count 4.68 10^6/uL (3.85-5.65); Red Cell Distribution Width 13.2 % (12.1-15.1)
[2023-12-27] MEDS: sodium chloride 0.9% 500 ML 999 ML IV (19:37)
[2023-12-27] MEDS: ondansetron 2 mg/ML SDV 2 mL 4 MG IVP (19:38)
[2023-12-27] MEDS: nitroglycerin 1 gm/inch oint Pkt 0.5 INCH TOPICAL (19:40)
[2023-12-27 19:43] LABS: INR 0.97 (0.8-1.2)
[2023-12-27 19:44] LABS: Partial Thromboplastin Time 24.6 SECONDS (23.9-36.7)
[2023-12-27 19:50] LABS: Troponin(5th) Baseline 19 ng/L (0-15)
[2023-12-27 20:00] LABS: Alanine Aminotransferase 17 U/L (0-41); Albumin Level 4.7 g/dL (3.5-5.2); Alkaline Phosphatase 91 U/L (40-130); Aspartate Amino Transferase 19 U/L (0-40); Blood Urea Nitrogen 15 mg/dL (8-23); Calcium 9.1 mg/dL (8.5-10.5); Carbon Dioxide 23 mmol/L (22-29); Chloride 95 mmol/L (98-107); Creatinine Clr Calc Pharmacy 73.8189; Globulin 3.2 g/dL (1.3-4.6); Glucose 262 mg/dL (65-115); NT Pro B Type Natriuretic Pept 263 pg/mL (0-450); Osmolality Calculated 284 mOsm/kg (285-295); Sodium 132 mmol/L (136-145); Total Bilirubin 0.4 mg/dL (0.15-1.2); Total Protein 7.9 g/dL (6.6-8.7)
[2023-12-27] MEDS: morphine 4 mg/mL SDV 1 mL 2 MG IVP (20:46)
--- NOTE | 2023-12-27 21:24 | ECG_ITS ---
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 Measurements Intervals Vida Rate: 86 P: 90 IN: 265 QRS: -64 QRSD: 141 T: 70 QT: 384 QTc: 460 Interpretive Statements SINUS RHYTHM WITH FIRST DEGREE AV BLOCK RIGHT BUNDLE BRANCH BLOCK [120+ ms QRS DURATION, UPRIGHT V1, 40+ ms S IN I/aVL/V4/V5/V6] LEFT ANTERIOR FASCICULAR BLOCK [QRS AXIS <= -45, QR IN I, RS IN II] LEFT VENTRICULAR HYPERTROPHY AND ST-T CHANGE [VOLTAGE CRITERIA PLUS ST/T ABNORMALITY] POSSIBLE SEPTAL MYOCARDIAL INFARCTION , OF INDETERMINATE AGE [30 ms Q WAVE IN V1/V2] Compared to ECG 12/27/2023 19:48:56 Ventricular premature complex(es) no longer present ST (T wave) deviation still present Myocardial infarct finding still present Electronically Signed On 12-28-2023 11:46:03 CDT by Amadeo Aguilar M.D. [id number]
[2023-12-27 21:52] LABS: Troponin 5 2HR 79.54 ng/L (0-15)
[2023-12-27 22:03] LABS: Troponin 5 2HR Delta 60.54 ABS# (0-10)
[2023-12-27] MEDS: ticagrelor 90 mg Tablet 180 MG PO (22:48)
[2023-12-27] MEDS: metoprolol tartrate 50 mg Tablet PO (22:48)
[2023-12-27] MEDS: heparin 5,000 unit/mL INJ 1 mL 4000 UNIT IVP (22:49)
[2023-12-27] MEDS: heparin drip 25,000 UNIT/500 ML PREMIX 21.5599999999999987 UNIT IV (22:53)
--- NOTE | 2023-12-27 23:17 | ED_ITS ---
HPI - Chest Pain 2 General: Chief Complaint: Chest Pain Stated Complaint: CP Time Seen by Provider: 12/27/23 19:22 Source: patient and family Mode of arrival: ambulatory Limitations: no limitations History of Present Illness: Substernal chest pain started about 1800. Patient reports it was moderate and then, went away. He got home start unloading the car had several things unload and chest right hurting much worse. Minerva like nothing is ever felt before. Very heavy substernal pain Review of Systems 2 General: Reports: 10 or more systems reviewed and unremarkable except in HPI and below PFSH ED 2 PFSH: Medical History Peripheral vascular disease PAD (peripheral artery disease) Peripheral vascular disease Bilateral carotid artery stenosis Sleep apnea COPD (chronic obstructive pulmonary disease) Hypertension Seizure disorder Hearing loss History of left common carotid artery stent placement GERD (gastroesophageal reflux disease) Diabetes Surgical History Status post laparoscopic cholecystectomy (12/01/19) H/O knee surgery History of back surgery S/P appendectomy Status post colonoscopy with polypectomy H/O esophagogastroduodenoscopy Family History Other CAD (coronary artery disease) Cancer Dementia Diabetes Hyperlipidemia Hypertension Postsurgical cardiac pacemaker in situ Stroke Social History Smoking and tobacco/nicotine status: former use of tobacco/nicotine Quit status (tobacco/nicotine): has quit using Alcohol intake: current Alcohol intake frequency: holidays/special occasions only Substance/Drug Use: never Physical Exam 2 Const: COMMON NORMALS: no acute distress, average body habitus, patient oriented x3, healthy appearing, alert and well nourished GENERAL APPEARANCE: well kempt and well developed HENMT: COMMON NORMALS: normocephalic, atraumatic, external ears normal and moist oral mucous membranes HEAD & SCALP: normocephalic and atraumatic E XTERNAL EAR: Yes external ears normal Eye: COMMON NORMALS: Equal, round and reactive pupils present, EOMs intact bilaterally and conjunctivae normal CONJUNCTIVA: Yes conjunctivae normal P UPIL: Yes Equal, round and reactive pupils present Neck/C-Spine: COMMON NORMALS: full ROM, no lymphadenopathy and supple Chest: CHEST: Yes Symmetrical chest wall rise and No Surgical scars present (Chest) Resp: COMMON NORMALS: normal respiratory effort, No retractions, No use of accessory muscles and clear to auscultation bilaterally AUSCULTATION: clear to auscultation bilaterally Cardio: COMMON NORMALS: regular rate, regular rhythm, S1 normal heart sound present, S2 normal heart sound present, No gallops present (Cardio), No clicks present (Cardio), No murmurs present (Cardio) and No rub (Cardio) RATE: r egular rate RHYTHM: regular rhythm HEART SOUNDS: S1 normal heart sound present, S2 normal heart sound present and no murmurs PERIPHERAL PULSES: o ther (Radial pulses 2+ and symmetric) GI: COMMON NORMALS: Soft to palpation, non-tender and no masses INSPECTION: No abdominal distension PALPATION: Yes Soft to palpation, No Guarding due to palpation present (GI) and No Rebound tenderness present : COMMON NORMALS: Yes no CVA tenderness BLADDER/KIDNEY EXAM: Yes no CVA tenderness Back/Pelvis: COMMON NORMALS: no CVA tenderness Extremity: COMMON NORMALS: normal to inspection, full ROM, capillary refill normal and no clubbing, cyanosis or edema Neuro: COMMON NORMALS: patient oriented x3 SENSORIUM/ORIENTATION: Yes alert Psych: APPEARANCE: Yes well kempt Skin: COMMON NORMALS: no rashes or lesions noted, no wounds, turgor normal and no jaundice GENERAL SKIN EXAM: no rashes or lesions noted and turgor normal Course 2 Vital Signs: Vital signs: Vital Signs Pulse Rate 98 12/27/23 22:55 Respiratory Rate 17 12/27/23 22:55 Blood Pressure 175/87 12/27/23 22:55 Pulse Oximetry 91 12/27/23 21:45 Oxygen Delivery Me thod Room Air 12/27/23 19:17 MDM - Chest Pain Medical Decision Making Patient is a insulin-dependent diabetic, with a history of a left carotid stent and a right carotid endarterectomy more recently. No cardiac history besides hypertension. Patient blood pressure is running 225. Came down with Nitropatch chest pain also eased off with nitro and morphine. Chest pain now gone. Troponin initial was 19 repeat was 79 for a delta of 60. Patient will be admitted to the hospital on NSTEMI protocols for further evaluation and treatment. Heparin bolus and drip was given. Brilinta given. Metoprolol given. Slightly higher than patient's baseline dose. Patient is aware to alert staff if he starts to have increasing chest pain. Blood pressure currently down to 170/82. Case has been discussed with the hospitalist. Regarding his imaging his EKG shows sinus tach at 105 initially. Study was performed at 191 and interpreted at 191. Sinus 105 prolonged IL interval with right bundle branch block and some LVH normal QTc no ST elevation. Repeat EKG was done at 1947 interpreted at 195 and showed sinus rate 92 still with first-degree block normal QTc normal QRS. Possibly some lateral lead very mild ST depression. X- ray of the chest was done ER physician interpreted as no acute radiology agrees. Differential Diagnosis Likely acute myocardial infarction Medical Records I reviewed the patient's medical records. Lab Data I reviewed the patient's lab results. 12/27/23 19:25 12/27/23 19:25 Radiology Impressions Chest X-Ray 12/27/23 19:24 IMPRESSION: No acute findings. Laboratory Results WBC 9.10 10^3/uL (3.29-11.43) 12/27/23 19:25 RBC 4.68 10^6/uL (3.85-5.65) 12/27/23 19:25 Hgb 14.60 g/dL (11.27-16.99) 12/27/23 19:25 Hct 42.7 % (37-53) 12/27/23 19:25 MCV 91.2 fl (82-101) 12/27/23 19:25 MCH 31.2 pg (27-33) 12/27/23 19:25 MCHC 34.2 g/dL (30-55) 12/27/23 19:25 RDW 13.2 % (12.1-15.1) 12/27/23 19:25 Plt Count 249 10^3/cmm (157-399) 12/27/23 19:25 MPV 10.9 fL (7.4-10.4) H 12/27/23 19:25 Neut % (Auto) 62.5 % 12/27/23 19:25 Lymph % (Auto) 20.7 % 12/27/23 19:25 [place] % (Auto) 11.9 % 12/27/23 19:25 Eos % (Auto) 4.2 % 12/27/23 19:25 Baso % (Auto) 0.5 % 12/27/23 19:25 Neut # (Auto) 5.69 10^3/uL (1.8-7.7) 12/27/23 19:25 Lymph # (Auto) 1.9 10^3/uL (0.8-4.8) 12/27/23 19:25 [place] # (Auto) 1.1 10^3/uL (0.2-0.9) H 12/27/23 19:25 Eos # (Auto) 0.4 10^3/uL (0.0-0.8) 12/27/23 19:25 Baso # (Auto) 0.1 10^3/uL (0.0-0.1) 12/27/23 19:25 Nucleated RBC % (auto) 0 % 12/27/23 19:25 Nucleated RBCs # 0.0 /100WBC 12/27/23 19:25 PT 13.20 SECONDS (12.1-14.9) 12/27/23 19:25 INR 0.97 (0.8-1.2) 12/27/23 19:25 APTT 24.6 SECONDS (23.9-36.7) 12/27/23 19:25 Sodium 132 mmol/L (136-145) L 12/27/23 19:25 Potassium 4.0 mmol/L (3.5-5.1) 12/27/23 19:25 Chloride 95 mmol/L (98-107) L 12/27/23 19:25 Carbon Dioxide 23 mmol/L (22-29) 12/27/23 19:25 Anion Gap 18.0 (5-19) 12/27/23 19:25 BUN 15 mg/dL (8-23) 12/27/23 19:25 Creatinine 0.9 mg/dL (0.7-1.2) 12/27/23 19:25 GFR Calculation Not Reportable 12/27/23 19:25 Glucose 262 mg/dL (65-115) H 12/27/23 19:25 Calculated Osmolality 284 mOsm/kg (285-295) L 12/27/23 19:25 Calcium 9.1 mg/dL (8.5-10.5) 12/27/23 19:25 Total Bilirubin 0.4 mg/dL (0.15-1.2) 12/27/23 19:25 AST 19 U/L (0-40) 12/27/23 19:25 ALT 17 U/L (0-41) 12/27/23 19:25 Alkaline Phosphatase 91 U/L (40-130) 12/27/23 19:25 Troponin T Baseline 19 ng/L (0-15) H 12/27/23 19:25 Troponin T 120 Minute 79.54 ng/L (0-15) H 12/27/23 21:25 Delta Troponin T 60.54 ABS# (0-10) H* 12/27/23 21:25 NT-Pro-B Natriuret Pep 263 pg/mL (0-450) 12/27/23 19:25 Total Protein 7.9 g/dL (6.6-8.7) 12/27/23 19:25 Albumin 4.7 g/dL (3.5-5.2) 12/27/23 19:25 Globulin 3.2 g/dL (1.3-4.6) 12/27/23 19:25 All radiology interpretation(s) finalized by discharge ED provider radiology interpretation(s): see MDM Critical Care Time 2 Critical Care Time: Critical Care Time: Yes Total Critical Care Time: 32 Attestation: Exclusive of other billable procedures. Includes time spent at bedside, talking with family, consulting other physicians, documenting and placing orders Discharge Plan Discharge Patient Disposition: Admitted As Inpatient Clinical Impression: Acute non-ST elevation myocardial infarction (NSTEMI) Condition: Stable Coding Level of Care Code ED Bed And Breakfast Cook for Katherine Jalloh
--- NOTE | 2023-12-27 23:24 | P.HP_ITS ---
Providers/Chief Complaint 2 Primary Care Provider: Pete Pope DO Chief Complaint: CP History of Present Illness Pleasant 78-year-old gentleman with history of carotid disease, DM2, HTN, seizure disorder, COPD, GERD, other medical problems started having chest pain while driving back from oxygen earlier today, then when unloading the car was hurting pretty badly in his chest. Reports over the last 2 days has had some dizziness , that he had previously had this type of dizziness with coronary disease but it had resolved after cardiac surgery was done on the right side. Now he had some return of the symptoms. He checked his blood pressure and it was quite elevated when he states as high as 249 systolic. He came to ER for evaluation. Here blood pressure still elevated, chest pain responded to nitroglycerin. Troponin showing an increase at 2 hours. He denies prior history of NC or stenting. He is a former smoker, long-term diabetic. Takes a small dose aspirin due to carotid disease. Review of Systems 2 Const: Denies: fever(s), chills, body aches or malaise ENMT: Denies: throat pain Card: Reports: chest pain; Denies: edema, pre-syncope or dyspnea on exertion Resp: Denies: dyspnea, productive cough, change in phlegm color or hemoptysis GI: Denies: abdominal pain, nausea, vomiting, diarrhea, constipation, hematochezia or melena : Denies: flank pain, difficulty urinating, urinary frequency or hematuria Musc: Denies: back pain, joint swelling or joint redness Skin/Breast: Denies: rash or new lesions Neuro: Reports: dizziness; Denies: headache(s) or confusion Medications/Allergies Home Medications Medication Instructions Recorded Confirmed Last Taken Type albuterol sulfate 90 mcg/actuation 2 inh inhalation Q6H PRN breathing 11/08/19 10/27/23 10/15/20 08:00 History breath activated powder inhaler cetirizine 10 mg capsule 10 mg PO QPM 11/08/19 10/27/23 10/12/23 History losartan 100 mg tablet 100 mg PO QAM 11/08/19 10/27/23 10/12/23 History montelukast 10 mg tablet 10 mg PO QPM 11/08/19 10/27/23 10/12/23 History (Singulair) pantoprazole 40 mg tablet,delayed 40 mg PO QAM 11/08/19 10/27/23 10/12/23 History release simvastatin 20 mg tablet 10 mg PO QPM 11/08/19 10/27/23 10/12/23 History metoprolol tartrate 50 mg tablet 25 mg PO BID 08/28/20 10/27/23 10/12/23 History Probiotic 1 tab PO QPM 08/31/20 10/27/23 10/12/23 History Vitamin D3 1 tab PO QAM 08/31/20 10/27/23 10/12/23 History fluticasone propionate 50 1 spray intranasal BID 08/31/20 10/27/23 10/12/23 History mcg/actuation nasal spray,suspension (Flonase Allergy Relief) acetaminophen 500 mg tablet 1,000 mg PO PRN 11/21/20 10/27/23 Unknown History (Tylenol Extra Strength) amlodipine 10 mg tablet 10 mg PO BEDTIME 11/21/20 10/27/23 10/12/23 History ibuprofen 200 mg tablet 200 mg PO PRN 11/21/20 10/27/23 Unknown History multivitamin with iron-mineral 1 tab PO QAM 11/21/20 10/27/23 10/12/23 History tamsulosin 0.4 mg capsule 0.4 mg PO QAM 11/21/20 10/27/23 10/12/23 History insulin aspart U-100 100 unit/mL 10 unit SUBCUT TID 02/16/21 10/27/23 10/12/23 History (3 mL) subcutaneous pen (Novolog FlexPen U-100 Insulin aspart) insulin glargine 100 unit/mL 54 unit SUBCUT DAILY@02/16/21 10/27/23 10/12/23 History subcutaneous solution (Lantus U-100 Insulin) ipratropium bromide 21 mcg (0.03 1 spray intranasal BID PRN Allergy 02/16/21 10/27/23 11/21/22 05:00 History %) nasal spray Symptoms aspirin 81 mg tablet,delayed 81 mg PO DAILY 11/22/22 10/27/23 10/09/23 History release (Adult Low Dose Aspirin) pregabalin 50 mg capsule 75 mg PO BID 05/27/23 10/27/23 10/12/23 History hydrocodone 5 mg-acetaminophen 325 1 tab PO Q6H PRN Moderate Pain #16 10/14/23 10/27/23 Unknown Rx mg tablet tabs Allergies Allergy/AdvReac Type Severity Reaction Status Date / Time No Known Allergies Allergy Verified 12/27/23 19:22 PFSH Acute 2 PFSH: Medical History Peripheral vascular disease PAD (peripheral artery disease) Peripheral vascular disease Bilateral carotid artery stenosis Sleep apnea COPD (chronic obstructive pulmonary disease) Hypertension Seizure disorder Hearing loss History of left common carotid artery stent placement GERD (gastroesophageal reflux disease) Diabetes Surgical History Status post laparoscopic cholecystectomy (12/01/19) H/O knee surgery History of back surgery S/P appendectomy Status post colonoscopy with polypectomy H/O esophagogastroduodenoscopy Family History Other CAD (coronary artery disease) Cancer Dementia Diabetes Hyperlipidemia Hypertension Postsurgical cardiac pacemaker in situ Stroke Social History Smoking and tobacco/nicotine status: former use of tobacco/nicotine Quit status (tobacco/nicotine): has quit using Alcohol intake: current Alcohol intake frequency: holidays/special occasions only Substance/Drug Use: never Vitals/I&O/Wt Last Vital Signs Pulse 98 12/27/23 22:55 Resp 17 12/27/23 22:55 BP 175/87 12/27/23 22:55 Pulse Ox 91 12/27/23 21:45 O2 Del Method Room Air 12/27/23 19:17 Weight last 48 hrs Weight 89.811 kg Physical Exam 2 Narrative: Accompanied by his . Very hard of hearing Const: COMMON NORMALS: patient oriented x3 and alert GENERAL APPEARANCE: c ooperative ORIENTATION/CONSCIOUSNESS: Yes awake HENMT: COMMON NORMALS: oropharynx normal Neck/C-Spine: COMMON NORMALS: no JVD Resp: COMMON NORMALS: normal respiratory effort and clear to auscultation bilaterally AUSCULTATION: clear to auscultation bilaterally Cardio: COMMON NORMALS: no JVD, regular rhythm, S1 normal heart sound present, S2 normal heart sound present and No murmurs present (Cardio) RHYTHM: regular rhythm HEART SOUNDS: S1 normal heart sound present and S2 normal heart sound present GI: COMMON NORMALS: Normal to inspection, nondistended, normoactive bowel sounds present, Soft to palpation and non-tender PALPATION: Yes Soft to palpation Extremity: COMMON NORMALS: no joint enlargement and no pedal edema Neuro: COMMON NORMALS: patient oriented x3 and moves all extremities S ENSORIUM/ORIENTATION: Yes alert Skin: COMMON NORMALS: no rashes or lesions noted GENERAL SKIN EXAM: no rashes or lesions noted Data 12/27/23 19:25 12/27/23 19:25 A&P Assessment and plan (1) Acute non-ST elevation myocardial infarction (NSTEMI): With episode of chest pain, with hypertensive urgency on presentation, reviewed vitals, CBC, INR, CMP, troponin, EKG on my interpretation with bifascicular block with RBBB and LAF, LVH, without obvious sign of acute NC, chest x-ray, reviewed ER note, discussed with ER provider. His symptoms responded to nitroglycerin, he is currently free. He does have a significant rise in troponin from 19-79.5 with positive delta of 60.5. Has been started on anticoagulation, continue. Continue aspirin, statin, home dose beta-miryam. Received ticagrelor, continue. Monitor for risk of bleeding with anticoagulation, dual antiplatelet. Continues with heparin into Nitropaste. Monitor on telemetry due to risk of arrhythmia. Assess echocardiogram. He was discussed with him, complete troponin EKG series, reassess condition, consider further assessment and management based on condition. N.p.o. for now in case we will end up requiring intervention tomorrow. Avoid NSAIDs. (2) Hypertension: Hypertensive urgency on presentation with chest pain, NSTEMI, blood pressure at home as high as 249 systolic, here still elevated 203/94. Improving with Nitropaste. Down to 170/82. She is feeling better. Continue to monitor blood pressure. Qualifiers: Hypertension type: essential hypertension Qualified Code(s): I10 - Essential (primary) hypertension Plan Carotid disease, status post unilateral carotid endarterectomy. Continue aspirin, statin. DM2, sliding scale insulin. Currently NPO. CC diet once resumed. Requesting to confirm home medications including Lantus dose. Seizure disorder, COPD, add nebs GERD, continue PPI Other medical problems Requesting to confirm home medication, please review and resume as appropriate. Attestations 2 Medical Necessity Statement*: Admission over 2 midnights anticipated for assessment management of NSTEMI, optimization of control of hypertension with hypertensive urgency on presentation. Diagnoses Acute non-ST elevation myocardial infarction (NSTEMI) I21.4 Essential hypertension I10 Hypertension type: essential hypertension
[2023-12-28] VITALS (18 sets, daily range): BP systolic 121–155; BP diastolic 55–75; PULSE 48–73; RESP 13–20; TEMP 36.6–37; O2SAT 90–97
[2023-12-28] MEDS: insulin glargine 100 units/1 mL 40 UNIT SUBCUT ×2 (00:52→20:41)
[2023-12-28] MEDS: atorvastatin 40 mg Tablet PO ×2 (00:52→20:41)
[2023-12-28 01:55] LABS: Basophils # 0.1 10^3/uL (0.0-0.1); Basophils % 0.6 %; Eosinophils # 0.3 10^3/uL (0.0-0.8); Eosinophils % 3.6 %; Hematocrit 40.1 % (37-53); Lymphocytes # 1.7 10^3/uL (0.8-4.8); Lymphocytes % 18.1 %; Mean Corpuscular HGB Conc 34.2 g/dL (30-55); Mean Corpuscular Hemoglobin 31.4 pg (27-33); Mean Platelet Volume 10.8 fL (7.4-10.4); Monocytes # 1.2 10^3/uL (0.2-0.9); Monocytes % 12.5 %; Neutrophils # 6.09 10^3/uL (1.8-7.7); Neutrophils % 64.9 %; Nucleated Red Blood Cells % 0 %; Platelet Count 211 10^3/cmm (157-399); Red Blood Count 4.36 10^6/uL (3.85-5.65); Red Cell Distribution Width 13.2 % (12.1-15.1); White Blood Count 9.39 10^3/uL (3.29-11.43)
--- NOTE | 2023-12-28 01:55 | ECG_ITS ---
[facility] Test Date: 2023-12-28 Pat Name: Fidel Holliday Department: Room: 106 Gender: Male [employer]: : 1945 Requested By: Graham Lowe Order Number: [id number] Hortensia MD: Amadeo Aguilar M.D. Measurements Intervals Dougherty Rate: 72 P: 95 ND: 256 QRS: -59 QRSD: 137 T: 44 QT: 394 QTc: 431 Interpretive Statements SINUS RHYTHM WITH FIRST DEGREE AV BLOCK RIGHT BUNDLE BRANCH BLOCK [120+ ms QRS DURATION, UPRIGHT V1, 40+ ms S IN I/aVL/V4/V5/V6] LEFT ANTERIOR FASCICULAR BLOCK [QRS AXIS <= -45, QR IN I, RS IN II] MODERATE VOLTAGE CRITERIA FOR LVH, CONSIDER NORMAL VARIANT [MEETS CRITERIA IN ONE OF: R(aVL), S(V1), R(V5), R(V5/V6)+S(V1)] POSSIBLE SEPTAL MYOCARDIAL INFARCTION , OF INDETERMINATE AGE [30 ms Q WAVE IN V1/V2] Compared to ECG 12/27/2023 21:25:53 ST (T wave) deviation no longer present Myocardial infarct finding still present Electronically Signed On 12-28-2023 11:47:17 CDT by Amadeo Aguilar M.D. [email or web address]
[2023-12-28 02:13] LABS: Alanine Aminotransferase 17 U/L (0-41); Albumin Level 4.1 g/dL (3.5-5.2); Alkaline Phosphatase 83 U/L (40-130); Anion Gap 15.4 (5-19); Aspartate Amino Transferase 41 U/L (0-40); Blood Urea Nitrogen 13 mg/dL (8-23); Calcium 9.2 mg/dL (8.5-10.5); Carbon Dioxide 25 mmol/L (22-29); Chloride 96 mmol/L (98-107); Creatinine Clr Calc Pharmacy 82.6117; Globulin 3.4 g/dL (1.3-4.6); Glucose 314 mg/dL (65-115); Osmolality Calculated 286 mOsm/kg (285-295); Potassium 4.4 mmol/L (3.5-5.1); Sodium 132 mmol/L (136-145); Total Bilirubin 0.5 mg/dL (0.15-1.2); Total Protein 7.5 g/dL (6.6-8.7)
[2023-12-28 02:26] LABS: Troponin 5 6HR 247.5 ng/L (0-15); Troponin 5 6HR Delta 228.5 ng/L (0-12)
[2023-12-28 05:29] LABS: Partial Thromboplastin Time 107.4 SECONDS (23.9-36.7)
[2023-12-28] MEDS: losartan 50 mg Tablet 100 MG PO (06:11)
[2023-12-28] MEDS: heparin drip 25,000 UNIT/500 ML PREMIX 21.5 UNIT IV (06:13)
--- NOTE | 2023-12-28 07:54 | PC.NURSE ---
Addendum entered by Valerie Gross RN 12/28/23 07:56: Patient does not want insulin at this time due to being NPO status. Will re-assess. Original Note: Patient insisting on using Pina device for blood glucose checks. Patient carmona not want to be stuck. Current blood sugar per Pina is 253
[2023-12-28] MEDS: ipratropium-albuterol 3 mL Neb INHALATION (08:02)
--- NOTE | 2023-12-28 08:43 | P.CONIM_ITS ---
Providers/Reason For Consult 2 Consulting Physician/Specialty*: Cardiovascular medicine Reason for Consult*: Chest pain, elevated troponin Requesting Physician: Hospitalist Attending Physician: Luis Alberto Hardwick Primary Care Provider: Pete Pope DO History of Present Illness History of Present Illness Fidel Holliday is a 78 year old male with longstanding vascular disease. He has vascular disease in multiple locations. Up until this point, he has never been diagnosed with coronary disease however. 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 After that he began to have discomfort in his chest. It was fairly typical burning sensation that radiated down both arms worse on the left. He described the discomfort as severe. There were no other associated symptoms. He was suspicious that it was his heart so he came to the emergency room. His EKG was not remarkable. It is unchanged from previous tracings. He has an underlying bifascicular block with LVH and a questionable history of an old septal myocardial infarction. His EKG from this visit is the same. His troponins are 19, 79 and 247. CBC, electrolytes and creatinine are normal. His chest x-ray is unremarkable. He has been placed on intravenous heparin and has been free of pain since he arrived. Currently he is comfortable. He has a fairly significant vascular history to include carotid disease. Several years ago while out of [place] he had a small stroke. He had a stent placed to his left carotid artery. Just a couple months ago he had a right- sided carotid endarterectomy. He also has peripheral arterial disease having had intervention to his right sided superficial femoral artery. He is an old smoker with COPD and sleep apnea. He has hypertension, GERD, diabetes, seizure disorder. Review of Systems 2 Narrative: Review of systems is negative Medications/Allergies Home Medications Medication Instructions Recorded Confirmed Last Taken Type albuterol sulfate 90 mcg/actuation 2 inh inhalation Q6H PRN breathing 11/08/19 12/28/23 10/15/20 08:00 History breath activated powder inhaler cetirizine 10 mg capsule 10 mg PO QPM 11/08/19 12/28/23 12/27/23 18:00 History losartan 100 mg tablet 100 mg PO QAM 11/08/19 12/28/23 12/27/23 08:00 History montelukast 10 mg tablet 10 mg PO QPM 11/08/19 12/28/23 12/27/23 18:00 History (Singulair) pantoprazole 40 mg tablet,delayed 40 mg PO QAM 11/08/19 12/28/23 12/27/23 08:00 History release simvastatin 20 mg tablet 10 mg PO QPM 11/08/19 12/28/23 12/27/23 18:00 History metoprolol tartrate 50 mg tablet 25 mg PO BID 08/28/20 12/28/23 12/27/23 18:00 History Probiotic 1 tab PO QPM 08/31/20 12/28/23 12/27/23 18:00 History Vitamin D3 1 tab PO QAM 08/31/20 12/28/23 12/27/23 08:00 History fluticasone propionate 50 1 spray intranasal BID 08/31/20 12/28/23 10/12/23 History mcg/actuation nasal spray,suspension (Flonase Allergy Relief) acetaminophen 500 mg tablet 1,000 mg PO PRN pain 11/21/20 12/28/23 Unknown History (Tylenol Extra Strength) amlodipine 10 mg tablet 10 mg PO BEDTIME 11/21/20 12/28/23 12/27/23 18:00 History ibuprofen 200 mg tablet 200 mg PO PRN pain 11/21/20 12/28/23 Unknown History multivitamin with iron-mineral 1 tab PO QAM 11/21/20 12/28/23 12/27/23 08:00 History tamsulosin 0.4 mg capsule 0.4 mg PO QAM 11/21/20 12/28/23 12/27/23 08:00 History insulin aspart U-100 100 unit/mL 10 unit SUBCUT TID 02/16/21 12/28/23 12/27/23 17:00 History (3 mL) subcutaneous pen (Novolog FlexPen U-100 Insulin aspart) insulin glargine 100 unit/mL 54 unit SUBCUT DAILY@02/16/21 12/28/23 12/26/23 21:00 History subcutaneous solution (Lantus U-100 Insulin) ipratropium bromide 21 mcg (0.03 1 spray intranasal BID PRN Allergy 02/16/21 12/28/23 12/26/23 21:00 History %) nasal spray Symptoms aspirin 81 mg tablet,delayed 81 mg PO DAILY 11/22/22 12/28/23 10/09/23 History release (Adult Low Dose Aspirin) pregabalin 50 mg capsule 75 mg PO BID 05/27/23 12/28/23 12/27/23 18:00 History bisacodyl 5 mg tablet,delayed 5 mg PO QPM 12/28/23 12/28/23 12/27/23 18:00 History release (Dulcolax (bisacodyl)) Allergies Allergy/AdvReac Type Severity Reaction Status Date / Time No Known Allergies Allergy Verified 12/27/23 19:22 Current Medications Generic Name Dose Route Start Last Admin Trade Name Freq PRN Reason Stop Dose Admin Albuterol/Ipratropium 3 ml 12/28/23 02:00 12/28/23 08:02 Ipratropium-Albuterol 3 Ml Neb INHALATION 3 ml Q6H.RESP TRISH Administration Atorvastatin Calcium 40 mg 12/27/23 23:52 12/28/23 00:52 Atorvastatin 40 Mg Tablet PO 40 mg BEDTIME TRISH Administration Heparin Sodium/Sodium Chloride 25,000 unit in 500 mls @ 0 mls/hr 12/28/23 06:00 12/28/23 06:17 Heparin Drip IV 9.33 unit/kg/hr .Q0M TRISH 16.5 mls/hr Titration Protocol Per Protocol Losartan Potassium 100 mg 12/28/23 06:00 12/28/23 06:11 Losartan 50 Mg Tablet PO 100 mg QAM TRISH Administration PFSH Acute 2 PFSH: Medical History Peripheral vascular disease PAD (peripheral artery disease) Peripheral vascular disease Bilateral carotid artery stenosis Sleep apnea COPD (chronic obstructive pulmonary disease) Hypertension Seizure disorder Hearing loss History of left common carotid artery stent placement GERD (gastroesophageal reflux disease) Diabetes Surgical History Status post laparoscopic cholecystectomy (12/01/19) H/O knee surgery History of back surgery S/P appendectomy Status post colonoscopy with polypectomy H/O esophagogastroduodenoscopy Family History Other CAD (coronary artery disease) Cancer Dementia Diabetes Hyperlipidemia Hypertension Postsurgical cardiac pacemaker in situ Stroke Social History Smoking and tobacco/nicotine status: former use of tobacco/nicotine Quit status (tobacco/nicotine): has quit using Alcohol intake: current Alcohol intake frequency: holidays/special occasions only Substance/Drug Use: never Vitals/I&O/Wt Last Vital Signs Temp 98.3 F 12/28/23 07:51 Pulse 58 L 12/28/23 08:06 Resp 18 12/28/23 08:06 BP 131/60 12/28/23 07:51 Pulse Ox 96 12/28/23 08:06 O2 Del Method Room Air 12/28/23 08:06 12/27/23 12/28/23 12/28/23 22:59 06:59 14:59 Intake Total 500 / 500 257.384 / 757.384 Output Total 700 / 700 Balance 500 / 500 -442.616 / 57.384 Weight last 48 hrs Weight 194 lb 14.4 oz Weight 195 lb 11.2 oz Weight 198 lb Physical Exam 2 Narrative: GENERAL: In general he looks and feels well HEENT: Exam within normal limits. NECK: Supple without jugular vein distention. The carotid upstroke is normal without bruits. BACK: Exam normal. LUNGS: Clear. HEART: Regular rate and rhythm. ABDOMEN: Benign without organomegaly or tenderness. EXTREMITIES: No edema. NEUROLOGIC: Exam normal. SKIN: Unremarkable. Data 12/28/23 01:42 12/28/23 01:42 A&P Assessment and plan (1) History of left common carotid artery stent placement: (2) Hypertension: Qualifiers: Hypertension type: essential hypertension Qualified Code(s): I10 - Essential (primary) hypertension (3) Bilateral carotid artery stenosis: (4) PAD (peripheral artery disease): (5) Bifascicular block: (6) History of right-sided carotid endarterectomy: (7) Acute non-ST elevation myocardial infarction (NSTEMI): (8) Diabetes mellitus type 2 in nonobese: (9) COPD (chronic obstructive pulmonary disease): Plan He would benefit from coronary angiography. We will do that this morning. I explained this to the patient and his . Consult Attestations 2 Medical Necessity Statement: Hospitalization for management of non-ST segment elevation RI. and Moderate Time for a total of 40 minutes, includes reviewing past or interval history, examining/interviewing patient, placing orders, counseling patient/family/other support, updating patient/family/other support, discussing plan of care with staff, communicating with other healthcare providers, documenting encounter and coordinating care Diagnoses History of left common carotid artery stent placement Z98.890; Z95.828 Essential hypertension I10 Hypertension type: essential hypertension Bilateral carotid artery stenosis I65.23 PAD (peripheral artery disease) I73.9 Bifascicular block I45.2 History of right-sided carotid endarterectomy Z98.890 Acute non-ST elevation myocardial infarction (NSTEMI) I21.4 Diabetes mellitus type 2 in nonobese E11.9 COPD (chronic obstructive pulmonary disease) J44.9
[2023-12-28] MEDS: pantoprazole DR 40 mg Tablet PO (08:44)
[2023-12-28] MEDS: ticagrelor 90 mg Tablet PO ×2 (08:45→17:11)
[2023-12-28] MEDS: metoprolol tartrate 50 mg Tablet 25 MG PO (08:46)
[2023-12-28] MEDS: aspirin 325 mg Tablet PO (08:48)
--- NOTE | 2023-12-28 09:20 | PC.NURSE ---
Dr Aguilar in to see patient. Discussed need for left heart cath this am. Patient verbalized understanding. Consent signed, paperwork completed and patient shaved and prepped for procedure.
--- NOTE | 2023-12-28 09:28 | XACV_ITS ---
Exam Room: [facility] Ht: 178 cm Wt: 88 kg BSA: 2.10 m2 Gender: Male : 1945 Any Known Allergies: No known allergies Exam Priority: Routine Procedure(s): Procedure Description: Diagnostic procedure Procedure Description: PCI procedure Procedure Description: Left Heart Catheterization Procedure Description: Left ventriculography Procedure Description: PTCA Procedure Description: Coronary Angiography Diagnostic Cath Status: Urgent Diagnostic Findings * Multilevel vascular disease patient with typical angina and elevated troponin. No new EKG changes. Procedure performed from the right radial artery. Coronary angiography reveals right coronary artery dominance. The left main coronary artery is normal. The left anterior descending gives off 2 marginal branches and a small septal branch. There are diffuse luminal irregularities with moderate calcification of the vessels. No significant LAD lesions. The circumflex gives off 3 obtuse marginal branches and an AV groove branch. In the second marginal branch there is a 99% stenosis in the ostial portion and then another 95% stenosis discrete in the midportion. The third obtuse marginal branch is a very small vessel and is diffusely severely diseased. The AV groove branch is normal. The right coronary artery is the dominant vessel, is heavily calcified throughout but contains no significant lesions. There is a large posterior descending artery with multiple branches and a large posterior left ventricular branch.. PCI Status: Urgent PCI LVEF Assessed: Yes PCI Indication: NSTE - ACS Interventional Findings * A wire was placed in both the second and third obtuse marginal branches. The second obtuse marginal branch is relatively small. Angioplasty with a 2.5 x 20 mm balloon was performed. This was successful with a very good angiographic result and KIRILL-3 flow. An attempt was made to angioplasty the third obtuse marginal branch but it is so small even a 1.5 mm balloon would not go down the vessel. The very proximal portion of the lesion underwent angioplasty but none further. I felt the second obtuse marginal branch was too small to stent. Additionally I would have had to stent across the third obtuse marginal branch so I chose to leave it alone. The plain old balloon angioplasty result was quite good. Decision for PCI with Surgical Consult: No PCI for Multi-vessel Disease: No Conclusions 1. None ST elevation NC from circumflex marginal disease undergoing plain old balloon angioplasty. Recommendations * Medical therapy. Interventional RX Recommendation: PCI w/o planned CABG Diagnostic RX Recommendation: PCI w/o planned CABG Anticoagulation: Heparin Ventriculography Ejection Fraction: 65.0 % Pressures Phase:Rest AO : 82 / 43 ( 61 ) @ 11:14:00 AM 130 / 46 ( 75 ) @ 11:23:00 AM 129 / 40 ( 74 ) @ 11:23:00 AM 124 / 51 ( 79 ) @ 11:32:00 AM 118 / 53 ( 81 ) @ 11:35:00 AM 151 / 66 ( 101 ) @ 11:48:00 AM LV : 143 / -7 / 14 @ 11:21:00 AM 150 / -3 / 18 @ 11:22:00 AM 147 / -3 / 19 @ 11:23:00 AM Valves Phase:DefaultPhase AV : 15.0 @ 11:24:35 AM AV Mean Gradient: 22.0 @ 11:24:35 AM 22.0 @ 11:24:35 AM Clinical Evaluation EBL: 5mL-10mL Procedural Details Procedure Consent Obtained. Pre-Procedure Time Out. Identified patient by full name and date of as verbalized by the patient/guarantor. Does the consent match the physician's order: Yes. Accurate & Complete Informed Consent: Yes. Inpatient/Outpatient History & Physical on Chart: Yes. If H&P is completed, is and addenduem needed: No. Visualize and Verify Site with Patient/Guarantor: N/A. Relevant Radiology Images available: Yes. The risks, benefits, and alternatives of sedation and/or procedure were discussed by physician. The patient agrees to continue. Procedure started. CSHA Clinical Fraility Score: 3: Managing Well. Thermal Intelligence Analyst Indications: ACS > 24 hours/NSTEMI. Chest Pain Symptom Assessment: Typical Angina Symptoms. Cardiovascular Instability: No. Correct patient, site and procedure confirmed by cath team. PERRLA. Strong, equal hand client relations representative bilaterally. Lungs clear x 5 lobes. IV Site on Arrival: 18 gauge in the right anticubital. IV Fluids: 0.9% NaCl at KVO. 0 mL infused prior to label printer. Pre Procedural Pulses: bilateral dorsalis pedis was 1+. Pre Procedural Pulses: bilateral posterior tibial was 1+. Pre Procedural Pulses: bilateral radial was 2+. Oxygen started at 2liters/min via nasal canula. right groin was prepped with chloroprep then draped in the usual sterile fashion. right radial was prepped with chloroprep then draped in the usual sterile fashion. Physician arrived. Physician notified. Baseline sample Acquired. HR: 63 BPM. Patient's family in the label printer waiting room. Dr. Aguilar will update at the completion of the procedure. Equipment: 6F - Radial. Cardiac Cath Pack. ACIST Manifold Kit Model BT 2000. Heparinized Saline (2 units/mL), 1000 mL bag. Physician scrubbed in. Immediate Pre-Procedure Time Out. Correct Patient: Yes; Correct Procedure: Yes; Correct Site: Yes; Correct Patient Position: Yes; Correct Supplies: Yes; Dried Flammable Prep: Yes; Blood Products Available: NA. Lidocaine 1% infiltrated to the right radial. Arterial access obtained. Unable to thread wire. Wire and needle out. Dr. Aguilar holding manual pressure. A 5 polish TIG catheter in over the exhange J wire. Multiple views taken of left coronary artery. Catheter redirected to the RCA. Multiple views taken of right coronary artery. Catheter removed over the exchange J wire. A 5 polish Angled Pig catheter in over the exchange J wire. EDP Sample taken: LV 143/-8,14; HR: 71 BPM; SpO2: 99%. LV gram performed in STEELE @ 10 mL/second for a total of 30 mL. EDP Sample taken: LV 150/-4,18; HR: 70 BPM; SpO2: 98%. Pullback taken: LV 147/-4,19; AO 130/46(75); Mean: 22mmHg, Peak to Peak: 15mmHg, SEP: 18sec/min; HR: 73 BPM; SpO2: 100%. 6 polish XB 3.5 guide catheter was inserted over the wire. [place] guidewire was advanced through the guide catheter to lesion in the Mid OM 2. Inflation number : 1 A AB TREK 2.50X12 RX BALLOON was prepped and advanced across the 2nd Ob Tiffanie , then inflated to 8 JAVIER for 0:30 seconds. Inflation number: 2 The AB TREK 2.50X12 RX BALLOON was reinflated across the 2nd Ob Tiffanie, to 8 JAVIER for 0:25 seconds. Inflation number: 3 The AB TREK 2.50X12 RX BALLOON was reinflated across the 2nd Ob Tiffanie, to 8 JAVIER for 0:23 seconds. Balloon out. Results checked. [place] guidewire was advanced through the guide catheter to lesion in the OM 3. Inflation number : 1 A AB TREK 2.25X20 RX BALLOON was prepped and advanced across the 3rd Ob Tiffanie , then inflated to 8 JAVIER for 0:14 seconds. AB Mini Trek 1.5 x 2 inserted and unable to cross, removed intact. Wire out. Guide catheter out. Dr. Aguilar scrubbed out. A TR Band was successful obtaining hemostatsis at the Right Radial artery insertion site. Post Procedure: Pulses reassessed and unchanged. PERRLA. Strong, equal hand client relations representative bilaterally. No VTE prophylaxis required. Medication's Wasted: Lidocaine 1% = 18 mL. Medication's Wasted: Nitro = 49.5 mg. Medication's Wasted: Heparin = 1000 units. Medication's Wasted: Other = Fentanyl 25 mcg. Total IV fluids: 100 mL. PCI Indication: NSTE. Post-op diagnosis: S/P PTCA of Om 2 and OM 3. Complications: none. Estimated blood loss: 5mL-10mL. Responsiveness - Normal response to verbal stimuli; alert and oriented, PERRLA. Airway - Unaffected, no intervention required; spontaneous ventilation. Circulation: W/N/L, pulses unchanged. Nausea/Vomiting: No. Procedure completed. Patient transferred by bed to 1st floor. Arterial access obtained. Catheter removed over the exchange J wire. Balloon out. Results checked. Vital chart was stopped. Access Site Site: Right Radial artery Sheath Size: 6 Fr Hemostasis Method: TR Band Hemostasis Success: Successful Procedure Medications Start: 9:56 AM Stop: 9:56 AM Medication: Versed Amount: 1 mg Route: I.V. Start: 9:56 AM Stop: 9:56 AM Medication: Fentanyl Amount: 25 mcg Route: I.V. Start: 9:59 AM Stop: 9:59 AM Medication: Versed Amount: 1 mg Route: I.V. Start: 9:59 AM Stop: 9:59 AM Medication: Benadryl Amount: 25 mg Route: I.V. Start: 10:11 AM Stop: 10:11 AM Medication: Nitrogylcerin Amount: 200 mcg Route: I.A. Start: 10:30 AM Stop: 10:30 AM Medication: Versed Amount: 1 mg Route: I.V. Start: 10:30 AM Stop: 10:30 AM Medication: Fentanyl Amount: 25 mcg Route: I.V. Start: 10:32 AM Stop: 10:32 AM Medication: Heparin Amount: 5000 units Route: I.V. Start: 11:08 AM Stop: 11:08 AM Medication: Nitrogylcerin Amount: 100 mcg Route: I.A. Start: 11:08 AM Stop: 11:08 AM Medication: Nitrogylcerin Amount: 200 mcg Route: I.A. Start: 11:08 AM Stop: 11:08 AM Medication: Verapamil Amount: 5 mg Route: I.A. I, the attending physician, have reviewed and verified all procedure medications. Yes, all medications given per verbal order History/Risk Factors Hypertension: Yes Dyslipidemia: No Peripheral Arterial Disease (PAD): Yes Myocardial Infarction (NC): No Obesity: No Renal Disease: No Tobacco Use: Former Prior Interventions PCI: No CABG: No Valve Surgery: No Report Signatures Finalized by Dr. Amadeo Aguilar MD on 12/28/2023 11:32 AM
[2023-12-28 11:20] LABS: Estmated Average Glucose 183
[2023-12-28 11:28] LABS: Chol HDL Ratio 2.27 mg/dL (1.0-5.00); Cholesterol 136 mg/dL (0-200); HDL Cholesterol 60 mg/dL (60-100); LDL Cholesterol Calculated 68 mg/dL (50-129); Thyroid Stimulating Hormone 4.31 uIU/mL (0.27-4.20); Triglycerides 40 mg/dL (0-150); VLDL Cholestrol Calculation 8 mg/dL (0-30)
[2023-12-28 12:08] LABS: Iron 73 ug/dL (59-158); Percent Saturation 26.8 % (20-50); Total Iron Binding Capacity 272 mcg/dl; Unsaturated Iron Binding 199 ug/dL (112-347); Vitamin B12 512 pg/mL (232-1245)
--- NOTE | 2023-12-28 12:15 | PC.NURSE ---
Patient received from [employer] s/p [facility] via right radial access with TR band in place to right wrist. No s/s of bleeding or hematoma formation observed. Instructed patient on site care and restrictions. Patient and spouse verbalized complete understanding.
--- NOTE | 2023-12-28 12:20 | PC.NURSE ---
Pina sensor blood sugar 248 at this time
[2023-12-28] MEDS: sodium chloride 0.9% 1,000 ML 100 ML IV (12:23)
[2023-12-28] MEDS: insulin lispro 100 unit/1 mL SUBCUT ×3 (12:23→20:42)
[2023-12-28 12:59] LABS: Free T4 Free Thyroxine 1.34 ng/dL (0.82-1.77); T3 Free 3.1 PG/ML (2.0-4.4)
--- NOTE | 2023-12-28 14:07 | P.PN_ITS ---
Subjective 2 Subjective: Admitted overnight. Underwent cardiac angiogram today. Complete Report Not Currently Available but I Am Told He Underwent Balloon Angioplasty of Diagonal. On Examination Patient Denies Any Nausea Vomiting, Headache or Chest Pains. Vitals/I&O/Wt Last Vital Signs Temp 98.3 F 12/28/23 07:51 Pulse 48 L 12/28/23 13:45 Resp 18 12/28/23 08:06 BP 128/57 12/28/23 13:45 Pulse Ox 91 12/28/23 13:45 O2 Del Method Room Air 12/28/23 08:06 12/27/23 12/28/23 12/28/23 22:59 06:59 14:59 Intake Total 500 / 500 257.384 / 757.384 451.575 / 451.575 Output Total 700 / 700 500 / 500 Balance 500 / 500 -442.616 / 57.384 -48.425 / -48.425 Weight last 48 hrs Weight 88.405 kg Weight 88.768 kg Weight 89.811 kg Physical Exam 2 Narrative: Accompanied by his . Very hard of hearing Const: COMMON NORMALS: patient oriented x3 and alert GENERAL APPEARANCE: c ooperative ORIENTATION/CONSCIOUSNESS: Yes awake HENMT: COMMON NORMALS: oropharynx normal Neck/C-Spine: COMMON NORMALS: no JVD Resp: COMMON NORMALS: normal respiratory effort and clear to auscultation bilaterally AUSCULTATION: clear to auscultation bilaterally Cardio: COMMON NORMALS: no JVD, regular rhythm, S1 normal heart sound present, S2 normal heart sound present and No murmurs present (Cardio) RHYTHM: regular rhythm HEART SOUNDS: S1 normal heart sound present and S2 normal heart sound present GI: COMMON NORMALS: Normal to inspection, nondistended, normoactive bowel sounds present, Soft to palpation and non-tender PALPATION: Yes Soft to palpation Extremity: COMMON NORMALS: no joint enlargement and no pedal edema Neuro: COMMON NORMALS: patient oriented x3 and moves all extremities S ENSORIUM/ORIENTATION: Yes alert Skin: COMMON NORMALS: no rashes or lesions noted GENERAL SKIN EXAM: no rashes or lesions noted Data 12/28/23 01:42 12/28/23 01:42 A&P Assessment and plan (1) Acute non-ST elevation myocardial infarction (NSTEMI): Post balloon angioplasty. Check echocardiogram. Continue with baby aspirin, Brilinta twice daily. Hold beta-miryam as patient developed bradycardia with heart rate going down to high 40s. Hold off on heparin drip for now. Check A1c, lipid panel. (2) Hypertension: Goal blood pressure less than 140/90 mmHg. Continue with home dose of amlodipine, losartan. Holding off on metoprolol given bradycardia. Uptitrate as for goal blood pressures. Qualifiers: Hypertension type: essential hypertension Qualified Code(s): I10 - Essential (primary) hypertension Plan Carotid disease, status post unilateral carotid endarterectomy. Continue aspirin, statin. DM2: Takes Lantus 54 units at bedtime along with 10 units of Humalog 3 times daily. Continue with sliding scale. Lantus 40 units nightly. Check A1c. RBBB, first-degree heart block Seizure disorder, COPD, add nebs. No exacerbation for now. GERD, continue PPI Restart other home medications Limited resuscitation Carb consistent cardiac diet Protonix for PUD prophylaxis Heparin 5000 every 12 hourly for DVT prophylaxis Attestations 2 Medical Necessity Statement*: Requires further hospitalization for management of non-ST elevation OK post balloon angioplasty uncontrolled hypertension, bradycardia Diagnoses Acute non-ST elevation myocardial infarction (NSTEMI) I21.4 Essential hypertension I10 Hypertension type: essential hypertension
[2023-12-28] MEDS: heparin 5,000 unit/mL INJ 1 mL 5000 UNIT SUBCUT (15:01)
--- NOTE | 2023-12-28 15:15 | PC.NURSE ---
Initiated TR band removal at 1300 removing 2-3ml of air every 15-20min until all air removed at this time. There are no s/s of bleeding or hematoma formation observed. Patient denies pain to site. Cleaned site with alcohol and placed folded 2x2 and coban. Instructed patient regarding site care and restrictions. Patient stated, Not my first rodeo and verbalized complete understanding.
--- NOTE | 2023-12-28 17:04 | PC.NURSE ---
Via Pina, blood sugar at this time is 288
[2023-12-28] MEDS: pregabalin 75 mg Capsule PO (17:11)
--- NOTE | 2023-12-28 17:32 | PC.NURSE ---
Right wrist dressing remains c,d,i with no s/s of bleeding or heamtoma formation observed. Patient denies pain to site. Will continue to monitor.
--- NOTE | 2023-12-28 20:30 | PC.NURSE ---
blood glucose on pt lali system- 163- 4 units given
[2023-12-28] MEDS: amlodipine 10 mg Tablet PO (20:41)
[2023-12-29] VITALS (7 sets, daily range): BP systolic 141–164; BP diastolic 63–79; PULSE 63–73; RESP 12–17; TEMP 36.9–37.1; O2SAT 93–95
[2023-12-29] MEDS: heparin 5,000 unit/mL INJ 1 mL 5000 UNIT SUBCUT (03:19)
[2023-12-29 04:58] LABS: Basophils # 0.1 10^3/uL (0.0-0.1); Basophils % 0.5 %; Eosinophils # 0.5 10^3/uL (0.0-0.8); Eosinophils % 4.8 %; Hematocrit 40.9 % (37-53); Lymphocytes # 1.3 10^3/uL (0.8-4.8); Lymphocytes % 12.5 %; Mean Corpuscular Hemoglobin 30.7 pg (27-33); Mean Platelet Volume 11.4 fL (7.4-10.4); Monocytes # 1.3 10^3/uL (0.2-0.9); Monocytes % 11.8 %; Neutrophils # 7.49 10^3/uL (1.8-7.7); Neutrophils % 70.1 %; Nucleated Red Blood Cells % 0 %; Platelet Count 228 10^3/cmm (157-399); Red Cell Distribution Width 13.6 % (12.1-15.1); White Blood Count 10.68 10^3/uL (3.29-11.43)
[2023-12-29 05:14] LABS: Alanine Aminotransferase 18 U/L (0-41); Albumin Level 3.9 g/dL (3.5-5.2); Alkaline Phosphatase 79 U/L (40-130); Aspartate Amino Transferase 41 U/L (0-40); Blood Urea Nitrogen 13 mg/dL (8-23); Calcium 8.7 mg/dL (8.5-10.5); Carbon Dioxide 26 mmol/L (22-29); Chloride 100 mmol/L (98-107); Creatinine Clr Calc Pharmacy 65.9683; Globulin 3.3 g/dL (1.3-4.6); Glucose 138 mg/dL (65-115); Osmolality Calculated 280 mOsm/kg (285-295); Sodium 134 mmol/L (136-145); Total Bilirubin 0.5 mg/dL (0.15-1.2); Total Protein 7.2 g/dL (6.6-8.7)
[2023-12-29] MEDS: tamsulosin 0.4 mg Capsule 0.400000000000000022 MG PO (05:57)
[2023-12-29] MEDS: losartan 50 mg Tablet 100 MG PO (05:57)
--- NOTE | 2023-12-29 06:23 | PC.NURSE ---
pt blood sugar on pt lali system 143
--- NOTE | 2023-12-29 07:33 | P.DS_ITS ---
Discharge Providers Date of Admission: 12/27/23 23:18 Date of Discharge: December 29, 2023 Attending Provider at Admission: Luis Alberto Hardwick Attending Provider at Discharge: Karin Keith MD Primary Care Provider: Pete Pope DO Diagnoses at Discharge Discharge Diagnosis (1) Acute non-ST elevation myocardial infarction (NSTEMI): Status: Resolved (2) Hypertension: Status: Acute Qualifiers: Hypertension type: essential hypertension Qualified Code(s): I10 - Essential (primary) hypertension Reason for Visit Reason for Visit: CP Hospital Course Hospital Course Patient admitted for NSTEMI. Cardiology was consulted he underwent coronary angiogram and balloon angioplasty was performed to marginal branch. Medical management recommended at this time. Also had uncontrolled hypertension on admission. Home antihypertensives restarted and blood pressure better controlled. Patient did have transient bradycardia post angioplasty therefore beta-blockers was discontinued. Heart rate did improve. Patient was seen and followed by cardiology. Continue all home meds. Patient will be discharged home in stable condition to follow-up with cardiology as an outpatient. Physical Exam Narrative: Resting comfortably in bed no acute distress. Very hard of hearing Const: COMMON NORMALS: patient oriented x3 and alert GENERAL APPEARANCE: cooperative ORIENTATION/CONSCIOUSNESS: Yes awake HENMT: COMMON NORMALS: oropharynx normal Resp: COMMON NORMALS: normal respiratory effort and clear to auscultation bilaterally AUSCULTATION: clear to auscultation bilaterally Cardio: COMMON NORMALS: regular rhythm, S1 normal heart sound present, S2 normal heart sound present and No murmurs present (Cardio) RHYTHM: regular rhythm HEART SOUNDS: S1 normal heart sound present and S2 normal heart sound present GI: COMMON NORMALS: Normal to inspection, nondistended, normoactive bowel sounds present, Soft to palpation and non-tender PALPATION: Yes Soft to p alpation Extremity: COMMON NORMALS: no joint enlargement and no pedal edema Neuro: COMMON NORMALS: patient oriented x3 and moves all extremities SENSORIUM/ORIENTATION: Yes alert Discharge Data Studies Completed and Pending Completed Studies During Hospitalization Category Date Time Status [employer] request for service Routine Exams 12/28/23 09:28 Completed XR chest 1V portable [id number] Stat Exams 12/27/23 19:24 Completed Pending at discharge Category Date Time Status Complete Blood Count w/Auto AM LABS Lab 12/30/23 04:00 Ordered Comprehensive Metabolic Panel AM LABS Lab 12/30/23 04:00 Ordered MAG [Magnesium] AM LABS Lab 12/30/23 04:00 Ordered MAG [Magnesium] AM LABS Lab 12/31/23 04:00 Ordered Platelet Count Q2D Lab 12/30/23 04:00 Ordered Platelet Count Q2D Lab 01/01/24 04:00 Ordered Radiology Impressions Chest X-Ray 12/27/23 19:24 IMPRESSION: No acute findings. Laboratory Results WBC 10.68 10^3/uL (3.29-11.43) 12/29/23 03:34 RBC 4.40 10^6/uL (3.85-5.65) 12/29/23 03:34 Hgb 13.50 g/dL (11.27-16.99) 12/29/23 03:34 Hct 40.9 % (37-53) 12/29/23 03:34 MCV 93.0 fl (82-101) 12/29/23 03:34 MCH 30.7 pg (27-33) 12/29/23 03:34 MCHC 33.0 g/dL (30-55) 12/29/23 03:34 RDW 13.6 % (12.1-15.1) 12/29/23 03:34 Plt Count 228 10^3/cmm (157-399) 12/29/23 03:34 MPV 11.4 fL (7.4-10.4) H 12/29/23 03:34 Neut % (Auto) 70.1 % 12/29/23 03:34 Lymph % (Auto) 12.5 % 12/29/23 03:34 [place] % (Auto) 11.8 % 12/29/23 03:34 Eos % (Auto) 4.8 % 12/29/23 03:34 Baso % (Auto) 0.5 % 12/29/23 03:34 Neut # (Auto) 7.49 10^3/uL (1.8-7.7) 12/29/23 03:34 Lymph # (Auto) 1.3 10^3/uL (0.8-4.8) 12/29/23 03:34 [place] # (Auto) 1.3 10^3/uL (0.2-0.9) H 12/29/23 03:34 Eos # (Auto) 0.5 10^3/uL (0.0-0.8) 12/29/23 03:34 Baso # (Auto) 0.1 10^3/uL (0.0-0.1) 12/29/23 03:34 Nucleated RBC % (auto) 0 % 12/29/23 03:34 Nucleated RBCs # 0.0 /100WBC 12/29/23 03:34 PT 13.20 SECONDS (12.1-14.9) 12/27/23 19:25 INR 0.97 (0.8-1.2) 12/27/23 19:25 APTT 107.4 SECONDS (23.9-36.7) H D 12/28/23 05:00 Sodium 134 mmol/L (136-145) L 12/29/23 03:34 Potassium 4.0 mmol/L (3.5-5.1) 12/29/23 03:34 Chloride 100 mmol/L (98-107) 12/29/23 03:34 Carbon Dioxide 26 mmol/L (22-29) 12/29/23 03:34 Anion Gap 12.0 (5-19) 12/29/23 03:34 BUN 13 mg/dL (8-23) 12/29/23 03:34 Creatinine 1.0 mg/dL (0.7-1.2) 12/29/23 03:34 GFR Calculation Not Reportable 12/29/23 03:34 Glucose 138 mg/dL (65-115) H 12/29/23 03:34 Estimat Average Glucose 183 12/28/23 01:42 Hemoglobin A1c 8.0 % (4.0-6.0) H 12/28/23 01:42 Calculated Osmolality 280 mOsm/kg (285-295) L 12/29/23 03:34 Calcium 8.7 mg/dL (8.5-10.5) 12/29/23 03:34 Magnesium 2.0 mg/dL (1.7-2.3) 12/29/23 03:34 Iron 73 ug/dL (59-158) 12/28/23 01:42 TIBC 272 mcg/dl 12/28/23 01:42 % Saturation 26.8 % (20-50) 12/28/23 01:42 Unsat Iron Binding 199 ug/dL (112-347) 12/28/23 01:42 Total Bilirubin 0.5 mg/dL (0.15-1.2) 12/29/23 03:34 AST 41 U/L (0-40) H 12/29/23 03:34 ALT 18 U/L (0-41) 12/29/23 03:34 Alkaline Phosphatase 79 U/L (40-130) 12/29/23 03:34 Troponin T Baseline 19 ng/L (0-15) H 12/27/23 19:25 Troponin T 120 Minute 79.54 ng/L (0-15) H 12/27/23 21:25 Delta Troponin T 60.54 ABS# (0-10) H* 12/27/23 21:25 Troponin T Hi Sens 6Hr 247.5 ng/L (0-15) H 12/28/23 01:42 Troponin T Hi Sens 6Hr Delta 228.5 ng/L (0-12) H* 12/28/23 01:42 NT-Pro-B Natriuret Pep 263 pg/mL (0-450) 12/27/23 19:25 Total Protein 7.2 g/dL (6.6-8.7) 12/29/23 03:34 Albumin 3.9 g/dL (3.5-5.2) 12/29/23 03:34 Globulin 3.3 g/dL (1.3-4.6) 12/29/23 03:34 Triglycerides 40 mg/dL (0-150) 12/28/23 01:42 Cholesterol 136 mg/dL (0-200) 12/28/23 01:42 LDL Cholesterol, Calc 68 mg/dL (50-129) 12/28/23 01:42 Total VLDL Cholesterol 8 mg/dL (0-30) 12/28/23 01:42 HDL Cholesterol 60 mg/dL (60-100) 12/28/23 01:42 Cholesterol/HDL Ratio 2.27 mg/dL (1.0-5.00) 12/28/23 01:42 Vitamin B12 512 pg/mL (232-1245) 12/28/23 01:42 Folate 17.0 ng/mL (4.5-32.2) 12/29/23 03:34 TSH 4.31 uIU/mL (0.27-4.20) H 12/28/23 01:42 Free T4 1.34 ng/dL (0.82-1.77) 12/28/23 01:42 Free T3 3.1 PG/ML (2.0-4.4) 12/28/23 01:42 Vitals Last Vital Signs Temp 98.5 F 12/29/23 07:26 Pulse 68 12/29/23 07:26 Resp 17 12/29/23 07:26 BP 141/63 12/29/23 07:26 Pulse Ox 94 12/29/23 07:26 O2 Del Method Room Air 12/29/23 07:26 Discharge Plan Discharge Patient Disposition: Home Condition: Stable Prescriptions: Continued albuterol sulfate 90 mcg/actuation aerosol powdr breath activated 2 inh INHALATION Q6H PRN (Reason: breathing) cetirizine 10 mg capsule 10 mg PO QPM losartan 100 mg tablet 100 mg PO QAM montelukast [Singulair] 10 mg tablet 10 mg PO QPM pantoprazole 40 mg tablet,delayed release (DR/EC) 40 mg PO QAM metoprolol tartrate 50 mg tablet 25 mg PO BID pregabalin 50 mg capsule 75 mg PO BID atorvastatin 40 mg tablet 40 mg PO DAILY Qty: 90 4RF fluticasone propionate [Flonase Allergy Relief] 50 mcg/actuation [place],Suspension 1 spray intranasal BID Probiotic 1 tab PO QPM Vitamin D3 1 tab PO QAM insulin aspart U-100 [Novolog FlexPen U-100 Insulin] 100 unit/mL (3 mL) insulin pen 10 unit SUBCUT TID Rx Instructions: sometimes uses less and sometimes uses more-pt states mostly 10 units tid acetaminophen [Tylenol Extra Strength] 500 mg Tablet 1,000 mg PO PRN tamsulosin 0.4 mg capsule 0.4 mg PO QAM amlodipine 10 mg tablet 10 mg PO BEDTIME multivitamin with iron-mineral Tablet 1 tab PO QAM Lantus U-100 Insulin 100 unit/mL solution 54 unit SUBCUT DAILY@21 ipratropium bromide 21 mcg (0.03 %) spray,non-aerosol 1 spray INTRANASAL BID PRN (Reason: Allergy Symptoms) bisacodyl [Dulcolax (bisacodyl)] 5 mg Tablet,Delayed Release (Dr/Ec) 5 mg PO QPM Adult Low Dose Aspirin 81 mg tablet,delayed release (DR/EC) 81 mg PO DAILY Qty: 30 0RF Discontinued ibuprofen 200 mg Tablet 200 mg PO PRN Discharge Orders: Discharge Order (Routine); Ordered 12/29/23 Ordered By: Karin Keith Referrals: Amadeo Aguilar MD [Physician] - 1 month (This appointment will be made after follow up with Mansi Moreno.) Pete Pope DO [Primary Care Provider] - Guillermo Duenas MD [Physician] - 1-3 days (You have a follow up appointment with Dr Duenas at 1:30pm today. ) Mansi Moreno FNP [Nurse Practitioner] - 1 week (You have a scheduled appointment with Mansi UMANZOR on January 27, 2024 at 1:30pm. She will make a follow up appointment for you with Dr Aguilar at that time. If you have any questions or concerns please call [facility] at .) Discharge Diet: Cardiac and Diabetic Discharge Activity: Limit activity as instructed Patient Instructions: Atorvastatin (By mouth), Chest Pain (DC), Coronary Angioplasty (DC), Heart Catheterization (DC), Opioid Safety Activity Restrictions/Additional Instructions: Activity restriction is no lifting over 5 pounds for 2 days with the right arm. Discharge Attestations Time Spent in Discharge Care*: greater than 30 min Status at Discharge: Cognitive status at discharge: cognitively intact , Behavioral status at discharge: cooperative , Quality Metrics Clinical Quality Measures [ No reported AMI, CVA or VTE this stay] Coding Level of Care Code 24917 Total time (in minutes) for Discharge: 35 Diagnoses Acute non-ST elevation myocardial infarction (NSTEMI) I21.4 Essential hypertension I10 Hypertension type: essential hypertension
--- NOTE | 2023-12-29 07:57 | P.PN_ITS ---
Subjective 2 Subjective: Fidel underwent angiography yesterday. Angioplasty of circumflex marginal branch was performed. The vessel was too small to stent. There was no disease of any significance in the right or LAD. His left ventricular function is normal by ventriculography. Today he feels well. No chest pain. No other symptoms. No complications of the right radial artery entry site. Vitals/I&O/Wt Last Vital Signs Temp 98.5 F 12/29/23 07:26 Pulse 66 12/29/23 07:43 Resp 16 12/29/23 07:43 BP 141/63 12/29/23 07:26 Pulse Ox 95 12/29/23 07:43 O2 Del Method Room Air 12/29/23 07:43 12/28/23 12/29/23 12/29/23 22:59 06:59 14:59 Intake Total 1420 / 1871.575 250 / 2121.575 Balance 1420 / 1371.575 250 / 1621.575 Weight last 48 hrs Weight 202 lb 4.8 oz Weight 194 lb 14.4 oz Weight 195 lb 11.2 oz Weight 198 lb Physical Exam 2 Narrative: GENERAL: In general he looks and feels well HEENT: Exam within normal limits. NECK: Supple without jugular vein distention. The carotid upstroke is normal without bruits. BACK: Exam normal. LUNGS: Clear. HEART: Regular rate and rhythm. ABDOMEN: Benign without organomegaly or tenderness. EXTREMITIES: No edema. The right radial artery entry site is flat, dry without bleeding, hematoma or other vascular anomaly. NEUROLOGIC: Exam normal. SKIN: Unremarkable. Data 12/29/23 03:34 12/29/23 03:34 A&P Assessment and plan (1) Acute non-ST elevation myocardial infarction (NSTEMI): (2) Status post carotid endarterectomy: (3) History of left common carotid artery stent placement: (4) Bifascicular block: (5) Diabetic neuropathy, painful: (6) Hypertension: Qualifiers: Hypertension type: essential hypertension Qualified Code(s): I10 - Essential (primary) hypertension (7) COPD (chronic obstructive pulmonary disease): (8) Benign prostatic hyperplasia: (9) Peripheral vascular disease: (10) Diabetes mellitus type 2 in nonobese: (11) CAD (coronary artery disease): Plan He may be discharged home today. Follow-up in 7 to 10 days with the nurse practitioner for right radial artery check and chemistry panel evaluation. He has an appointment with Dr. Duenas today at 130 in the office for follow-up of his carotid endarterectomy. I told him to try to keep that appointment but I will let Dr. Duenas know that he is being discharged from here today. Activity restriction is no lifting over 5 pounds for 2 days with the right arm. Home medications should be just as they are prescribed. He does not need Brilinta at home. I would continue all of the other medications as currently prescribed. Attestations 2 Medical Necessity Statement*: Discharge home today and Moderate Time for a total of 35 minutes, includes reviewing past or interval history, examining/interviewing patient, placing orders, counseling patient/family/other support, updating patient/family/other support, discussing plan of care with staff, communicating with other healthcare providers, documenting encounter and coordinating care Diagnoses Acute non-ST elevation myocardial infarction (NSTEMI) I21.4 Status post carotid endarterectomy Z98.890 History of left common carotid artery stent placement Z98.890; Z95.828 Bifascicular block I45.2 Diabetic neuropathy, painful E11.40 Essential hypertension I10 Hypertension type: essential hypertension COPD (chronic obstructive pulmonary disease) J44.9 Benign prostatic hyperplasia N40.0 Peripheral vascular disease I73.9 Diabetes mellitus type 2 in nonobese E11.9 CAD (coronary artery disease) I25.10
[2023-12-29] MEDS: insulin lispro 100 unit/1 mL SUBCUT (08:12)
[2023-12-29] MEDS: pregabalin 75 mg Capsule PO (08:12)
[2023-12-29] MEDS: pantoprazole DR 40 mg Tablet PO (08:12)
[2023-12-29] MEDS: ticagrelor 90 mg Tablet PO (08:12)
[2023-12-29] MEDS: aspirin 81 mg EC Tablet PO (08:12)
[2023-12-29] MEDS: metoprolol tartrate 50 mg Tablet 25 MG PO (10:13)
--- NOTE | 2023-12-29 12:03 | PC.NURSE ---
Patient discharged to home. Instruction provided regarding follow up needs, new medications and site care. Patient verbalized complete understanding. IV removed. Right wrist remains c,d,i with no s/s of bleeding or hematoma formation observed. Patient denies pain or needs. Patient insist on ambulating to private vehicle with spouse at side.
== END 2023-12-29 12:05 | disposition home or self-care (01) | DRG 251 ==
LOC: ER 23:18 → CSU 23:28
PROVIDERS: Internal Medicine Cardiovascular Disease; Student in an Organized Health Care Education/Training Program; Admitting Provider Internal Medicine; Emergency Provider Emergency Medicine; PCP Emergency Medicine Emergency Medical Services; Visit Provider Internal Medicine
PROC: 02703ZZ Dilation of Coronary Artery, One Artery, Percutaneous Approach (ICD-10-PCS; principal; 2023-12-28 09:45)
PROC: 02703ZZ Dilation of Coronary Artery, One Artery, Percutaneous Approach (ICD-10-PCS; 2023-12-28 09:45)
DX: I21.4 Non-ST elevation (NSTEMI) myocardial infarction (principal); I45.2 Bifascicular block; E11.51 Type 2 diabetes mellitus with diabetic peripheral angiopathy without gangrene; I10 Essential (primary) hypertension; R56.9 Unspecified convulsions; J44.9 Chronic obstructive pulmonary disease, unspecified; K21.9 Gastro-esophageal reflux disease without esophagitis; I25.10 Atherosclerotic heart disease of native coronary artery without angina pectoris; I45.10 Unspecified right bundle-branch block; I16.0 Hypertensive urgency; H91.90 Unspecified hearing loss, unspecified ear; G47.30 Sleep apnea, unspecified; Z79.4 Long term (current) use of insulin; Z79.82 Long term (current) use of aspirin; Z95.820 Peripheral vascular angioplasty status with implants and grafts; Z87.891 Personal history of nicotine dependence; Z86.73 Personal history of transient ischemic attack (TIA), and cerebral infarction without residual deficits; Z86.010 Personal history of colon polyps
CPT/HCPCS: 36415; 71045; 80053; 80061; 82607; 82746; 83036; 83540; 83550; 83735; 83880; 84439; 84443; 84481; 84484; 85025; 85610; 85730; 92920; 92921; 93005; 93458; 94640; 96365; 96372; 96374; 96375; 99152; 99153; 99285; C1725; C1769; C1887; C1894; J1200; J1644; J1815; J2250; J2270; J2405; J3010; J3490; J7030; J7040; Q9967

== ENCOUNTER → 2023-12-29 13:21 | Outpatient (BNVA) | payer OTHER, SELFPAY | PROVIDERS: PCP Emergency Medicine Emergency Medical Services; Visit Provider Thoracic Surgery (Cardiothoracic Vascular Surgery) | DX: Z98.890 Other specified postprocedural states (principal); Z87.891 Personal history of nicotine dependence | CPT/HCPCS: 99024 ==

== ENCOUNTER → 2024-01-27 13:05 | Outpatient (BNVA) | payer OTHER, SELFPAY | PROVIDERS: PCP Nurse Practitioner Family; Visit Provider Nurse Practitioner Family | DX: I25.10 Atherosclerotic heart disease of native coronary artery without angina pectoris (principal); Z87.891 Personal history of nicotine dependence; I10 Essential (primary) hypertension | CPT/HCPCS: 99213 ==

== ENCOUNTER → 2024-02-12 08:18 | Outpatient (BNVA) | payer OTHER, SELFPAY | PROVIDERS: PCP Nurse Practitioner Family; Visit Provider Podiatrist Foot & Ankle Surgery | DX: L60.3 Nail dystrophy (principal); E11.40 Type 2 diabetes mellitus with diabetic neuropathy, unspecified; I73.9 Peripheral vascular disease, unspecified; Z79.4 Long term (current) use of insulin | CPT/HCPCS: 11721; 99203 ==

== ENCOUNTER 2024-03-09 10:38 | Emergency (ER) | payer OTHER, SELFPAY ==
[2024-03-09] VITALS (8 sets, daily range): BP systolic 128–188; BP diastolic 70–78; PULSE 74–83; RESP 12–22; TEMP 36.6; O2SAT 94–97; BMI 28.4
--- NOTE | 2024-03-09 10:39 | ECG_ITS ---
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 Measurements Intervals [place] Rate: 74 P: 76 ME: 218 QRS: -73 QRSD: 135 T: 43 QT: 386 QTc: 431 Interpretive Statements SINUS RHYTHM WITH FIRST DEGREE AV BLOCK RIGHT BUNDLE BRANCH BLOCK [120+ ms QRS DURATION, UPRIGHT V1, 40+ ms S IN I/aVL/V4/V5/V6] LEFT ANTERIOR FASCICULAR BLOCK [QRS AXIS <= -45, QR IN I, RS IN II] MINIMAL VOLTAGE CRITERIA FOR LVH, CONSIDER NORMAL VARIANT [MEETS CRITERIA IN ONE OF: R(aVL), S(V1), R(V5), R(V5/V6)+S(V1)] PROBABLE SEPTAL MYOCARDIAL INFARCTION , PROBABLY OLD [35 ms Q WAVE IN V1/V2] Compared to ECG 12/28/2023 01:55:41 No significant changes Electronically Signed On 03-09-2024 16:27:14 CDT by Deniz Buckley M.D. [email or web address] f
--- NOTE | 2024-03-09 10:52 | XR_ITS ---
WS: [id number] Examination: XR chest 1V portable [id number] Reason for Exam: dizzy Date: March 19, 2024 Comparison: December 27, 2023 Findings: The heart is not grossly enlarged. The mediastinum is not widened. There is no pulmonary edema or pleural effusion. No dense consolidation is identified. XR/XR chest 1V portable [id number] Impression: No failure or dense consolidation is appreciated.
--- NOTE | 2024-03-09 11:06 | CT_ITS ---
WS: [id number] CT HEAD TECHNIQUE: Noncontrast CT of the head obtained from the skullbase to the vertex. CLINICAL INFORMATION: dizziness COMPARISON: None. DLP: 1191.[address] scans at [facility] use at least one of these dose optimization techniques: automated e xposure control; mA and/or kV adjustment per patient size (includes targeted exams where dose is matc hed to clinical indication); or iterative reconstruction. FINDINGS: No evidence of intracranial hemorrhage or mass effect. Ventricular system and basal cisterns are loyola nt. Moderate small vessel changes with moderate parenchymal volume loss. Vascular calcification. No e xtra-axial fluid collections. No evidence of mass or mass effect. Peripherally calcified incidental l ipoma along the falx measuring 10 mm. Chronic appearing infarct with encephalomalacia LEFT posterior temporal lobe. Paranasal sinuses and mastoid air cells are well aerated. .Normal visualized soft tissues. Mild centr al canal stenosis at the craniocervical junction partially visualized. CT/CT head wo con* [id number] IMPRESSION: 1. No evidence of intracranial hemorrhage or mass effect. 2. Moderate small vessel changes with moderate parenchymal volume loss. Vascul ar calcification. 3. 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 4. Chronic appearing areas of ischemia in the LEFT frontal and parietal lobes. 5. No acute intracranial findings.
--- NOTE | 2024-03-09 11:08 | ED_ITS ---
HPI - Dizziness 2 General: Chief Complaint: Dizziness Stated Complaint: Dizzy, SOB, Blurry vision Time Seen by Provider: 03/09/24 10:58 Source: patient Mode of arrival: ambulatory Limitations: no limitations History of Present Illness: HPI Narrative: 78-year-old male states he has been havi ng lightheadedness he states been going on for over a year. He states that his head just feels swimmy at times and when he gets up to walk he feels lightheaded denies any vertigo. Patient states has been seen for this multiple times he states he did have a heart cath a few months ago and did have an angioplasty done. States that today the lightheadedness and got low worsening states he had some very mild chest pressure since resolved and some mild dyspnea. Denies any vomiting. Denies any headache. Associated symptoms: Denies chest pain, chills, headache(s), nausea or vomiting Related Data Home Medications Medication Instructions Recorded Confirmed losartan 100 mg tablet 100 mg PO QAM 11/08/19 03/09/24 montelukast 10 mg tablet 10 mg PO QPM 11/08/19 03/09/24 (Singulair) pantoprazole 40 mg tablet,delayed 40 mg PO QAM 11/08/19 03/09/24 release fluticasone propionate 50 2 spray intranasal DAILY 08/31/20 03/09/24 mcg/actuation nasal spray,suspension (Flonase Allergy Relief) acetaminophen 500 mg tablet 1,000 mg PO Q6H PRN pain 11/21/20 03/09/24 (Tylenol Extra Strength) amlodipine 10 mg tablet 10 mg PO BEDTIME 11/21/20 03/09/24 tamsulosin 0.4 mg capsule 0.4 mg PO QPM 11/21/20 03/09/24 insulin aspart U-100 100 unit/mL 10 unit SUBCUT TID 02/16/21 03/09/24 (3 mL) subcutaneous pen (Novolog FlexPen U-100 Insulin aspart) insulin glargine 100 unit/mL 50 unit SUBCUT DAILY@02/16/21 03/09/24 subcutaneous solution (Lantus U-100 Insulin) ipratropium bromide 21 mcg (0.03 2 spray intranasal TID PRN Allergy 02/16/21 03/09/24 %) nasal spray Symptoms azelastine 137 mcg (0.1 %) nasal 1 spray intranasal BID PRN 03/09/24 03/09/24 spray ALLERGIC RHINITIS calcium polycarbophil 625 mg tablet 1,250 mg PO DAILY 03/09/24 03/09/24 cholecalciferol (vitamin D3) 50 50 mcg PO DAILY 03/09/24 03/09/24 mcg (2,000 unit) tablet (Vitamin D3) docusate sodium 100 mg capsule 100 mg PO TID PRN SOFTEN STOOLS 03/09/24 03/09/24 (Colace) empagliflozin 25 mg tablet 12.5 mg PO DAILY 03/09/24 03/09/24 (Jardiance) lactobacillus combination no.4 3 3,000 mmu cells PO QPM 03/09/24 03/09/24 billion cell capsule (Probiotic) loratadine 10 mg tablet 10 mg PO DAILY 03/09/24 03/09/24 multivitamin with iron 1 tab PO DAILY 03/09/24 03/09/24 pregabalin 75 mg capsule 75 mg PO BID 03/09/24 03/09/24 scopolamine base 1 mg over 3 days 1 patch transdermal Q3D PRN Motion 03/09/24 03/09/24 transdermal patch (Transderm-Scop) Sickness terbinafine HCl 1 % topical cream 1 applic topical BID 03/09/24 03/09/24 triamcinolone acetonide 0.1 % 1 applic topical BID PRN CONTACT 03/09/24 03/09/24 topical ointment DERMATITIS Previous Rx's Medication Instructions Recorded aspirin 81 mg tablet,delayed 81 mg PO DAILY #30 tabs 12/29/23 release (Adult Low Dose Aspirin) atorvastatin 40 mg tablet 40 mg PO DAILY #90 tabs 12/29/23 carvedilol 3.125 mg tablet 3.125 mg PO BID #60 tabs 02/17/24 Allergies Allergy/AdvReac Type Severity Reaction Status Date / Time artichoke Allergy ALGY-Swell Verified 02/12/24 08:24 Lip/Tongue/Throat Review of Systems 2 Const: Denies: fever(s), chills, body aches or change in appetite Eyes: Denies: blurry vision or eye discomfort ENMT: Denies: throat pain or dental pain Card: Reports: lightheadedness; Denies: chest pain Resp: Reports: dyspnea GI: Denies: abdominal pain, nausea, vomiting or diarrhea : Denies: dysuria Musc: Denies: neck pain or back pain Skin/Breast: Denies: rash Neuro: Denies: headache(s) PFSH ED 2 PFSH: Medical History CAD (coronary artery disease) Peripheral vascular disease PAD (peripheral artery disease) Peripheral vascular disease Bilateral carotid artery stenosis Sleep apnea COPD (chronic obstructive pulmonary disease) Hypertension Seizure disorder Hearing loss History of left common carotid artery stent placement GERD (gastroesophageal reflux disease) Diabetes Surgical History Status post laparoscopic cholecystectomy (12/01/19) H/O knee surgery History of back surgery S/P appendectomy Status post colonoscopy with polypectomy H/O esophagogastroduodenoscopy Family History Other CAD (coronary artery disease) Cancer Dementia Diabetes Hyperlipidemia Hypertension Postsurgical cardiac pacemaker in situ Stroke Social History Smoking and tobacco/nicotine status: former use of tobacco/nicotine Quit status (tobacco/nicotine): has quit using Alcohol intake: current Alcohol intake frequency: holidays/special occasions only Substance/Drug Use: never Physical Exam 2 Const: COMMON NORMALS: no acute distress, patient oriented x3 and healthy appearing HENMT: COMMON NORMALS: normocephalic and atraumatic HEAD & SCALP: n ormocephalic and atraumatic Eye: COMMON NORMALS: Equal, round and reactive pupils present and EOMs intact bilaterally PUPIL: Yes Equal, round and reactive pupils present Neck/C-Spine: COMMON NORMALS: full ROM and supple Chest: COMMONS NORMALS: normal inspection of the chest Resp: COMMON NORMALS: normal respiratory effort, No retractions, No use of accessory muscles and clear to auscultation bilaterally AUSCULTATION: clear to auscultation bilaterally Cardio: COMMON NORMALS: regular rate, regular rhythm and No murmurs present (Cardio) RATE: regular rate RHYTHM: regular rhythm Extremity: COMMON NORMALS: normal to inspection and full ROM Neuro: COMMON NORMALS: patient oriented x3, moves all extremities and no focal motor deficits SPEECH: speech normal GAIT: Yes Normal gait present M OTOR EXAM: 5/5 motor strength present throughout Psych: COMMON NORMALS: mental status grossly normal, Normal thought process present and cooperative THOUGHT PROCESS: Normal thought process present Skin: COMMON NORMALS: no rashes or lesions noted and no wounds GENERAL SKIN EXAM: no rashes or lesions noted Course 2 Vital Signs: Vital signs: Vital Signs Temperature 97.8 F 03/09/24 10:40 Pulse Rate 83 03/09/24 14:00 Respiratory Rate 12 03/09/24 14:00 Blood Pressure 168/74 03/09/24 14:00 Pulse Oximetry 97 03/09/24 13:00 Oxygen Delivery Me thod Room Air 03/09/24 13:00 MDM - Dizziness Medical Decision Making Patient presents here with some lightheadedness been going on for months his EKG here showed no acute findings his 2-hour troponin had a delta less than 10. 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 Lab Data I reviewed the patient's lab results. 03/09/24 11:26 03/09/24 11:26 Radiology Impressions Chest X-Ray 03/09/24 10:52 Impression: No failure or dense consolidation is appreciated. Head CT 03/09/24 11:06 IMPRESSION: 1. No evidence of intracranial hemorrhage or mass effect. 2. Moderate small vessel changes with moderate parenchymal volume loss. Vascular calcification. 3. 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 4. Chronic appearing areas of ischemia in the LEFT frontal and parietal lobes. 5. No acute intracranial findings. Laboratory Results WBC 7.89 10^3/uL (3.29-11.43) 03/09/24 11:26 RBC 4.45 10^6/uL (3.85-5.65) 03/09/24 11:26 Hgb 13.70 g/dL (11.27-16.99) 03/09/24 11:26 Hct 41.1 % (37-53) 03/09/24 11:26 MCV 92.4 fl (82-101) 03/09/24 11:26 MCH 30.8 pg (27-33) 03/09/24 11: MCHC 33.3 g/dL (30-55) 03/09/24 11: RDW 13.6 % (12.1-15.1) 03/09/24 11:26 Plt Count 252 10^3/cmm (157-399) 03/09/24 11: MPV 10.2 fL (7.4-10.4) 03/09/24 11:26 Neut % (Auto) 64.1 % 03/09/24 11:26 Lymph % (Auto) 18.5 % 03/09/24 11:26 Newton % (Auto) 10.9 % 03/09/24 11:26 Eos % (Auto) 5.3 % 03/09/24 11: Baso % (Auto) 0.9 % 03/09/24 11: Neut # (Auto) 5.06 10^3/uL (1.8-7.7) 03/09/24 11: Lymph # (Auto) 1.5 10^3/uL (0.8-4.8) 03/09/24 11:26 Newton # (Auto) 0.9 10^3/uL (0.2-0.9) 03/09/24 11:26 Eos # (Auto) 0.4 10^3/uL (0.0-0.8) 03/09/24 11:26 Baso # (Auto) 0.1 10^3/uL (0.0-0.1) 03/09/24 11: Nucleated RBC % (auto) 0 % 03/09/24 11: Nucleated RBCs # 0.0 /100WBC 03/09/24 11:26 PT 13.40 SECONDS (12.1-14.9) 03/09/24 11:26 INR 0.99 (0.8-1.2) 03/09/24 11:26 Sodium 132 mmol/L (136-145) L 03/09/24 11:26 Potassium 4.6 mmol/L (3.5-5.1) 03/09/24 11: Chloride 98 mmol/L (98-107) 03/09/24 11: Carbon Dioxide 20 mmol/L (22-29) L 03/09/24 11:26 Anion Gap 18.6 (5-19) 03/09/24 11:26 BUN 14 mg/dL (8-23) 03/09/24 11:26 Creatinine 1.0 mg/dL (0.7-1.2) 03/09/24 11:26 GFR Calculation Not Reportable 03/09/24 11:26 Glucose 137 mg/dL (65-115) H 03/09/24 11:26 Calculated Osmolality 277 mOsm/kg (285-295) L 03/09/24 11:26 Calcium 9.2 mg/dL (8.5-10.5) 03/09/24 11:26 Total Bilirubin 0.4 mg/dL (0.15-1.2) 03/09/24 11:26 AST 20 U/L (0-40) 03/09/24 11:26 ALT 17 U/L (0-41) 03/09/24 11:26 Alkaline Phosphatase 78 U/L (40-130) 03/09/24 11:26 Troponin T Baseline 63 ng/L (0-15) H 03/09/24 11:26 Troponin T 120 Minute 68.66 ng/L (0-15) H 03/09/24 13:14 Delta Troponin T 5.66 ABS# (0-10) 03/09/24 13:14 NT-Pro-B Natriuret Pep 250 pg/mL (0-450) 03/09/24 11:26 Total Protein 6.9 g/dL (6.6-8.7) 03/09/24 11:26 Albumin 4.2 g/dL (3.5-5.2) 03/09/24 11:26 Globulin 2.7 g/dL (1.3-4.6) 03/09/24 11:26 All radiology interpretation(s) finalized by discharge EKG Data EKG 1: I personally reviewed and interpreted this EKG as follows: EKG interpretation date: 03/09/24 EKG interpretation time: 10:39 Interpretation: nsr hr [address] elevation qrs 135 qtc 414 EKG 2: I personally reviewed and interpreted this EKG as follows: EKG interpretation date: 03/09/24 EKG interpretation time: 13:38 Interpretation: nsr hr [address] elevation qrs 140 qtc 426 Discharge Plan Discharge Patient Disposition: Home Clinical Impression: Light headed Condition: Stable Prescriptions: No Action losartan 100 mg tablet 100 mg PO QAM montelukast [Singulair] 10 mg tablet 10 mg PO QPM pantoprazole 40 mg tablet,delayed release (DR/EC) 40 mg PO QAM atorvastatin 40 mg tablet 40 mg PO DAILY Qty: 90 4RF carvedilol 3.125 mg tablet 3.125 mg PO BID Qty: 60 1RF Rx Instructions: must administer with a meal/food fluticasone propionate [Flonase Allergy Relief] 50 mcg/actuation Teller,Suspension 2 spray intranasal DAILY insulin aspart U-100 [Novolog FlexPen U-100 Insulin] 100 unit/mL (3 mL) insulin pen 10 unit SUBCUT TID acetaminophen [Tylenol Extra Strength] 500 mg Tablet 1,000 mg PO Q6H PRN (Reason: pain) tamsulosin 0.4 mg capsule 0.4 mg PO QPM amlodipine 10 mg tablet 10 mg PO BEDTIME Lantus U-100 Insulin 100 unit/mL solution 50 unit SUBCUT DAILY@21 ipratropium bromide 21 mcg (0.03 %) spray,non-aerosol 2 spray INTRANASAL TID PRN (Reason: Allergy Symptoms) aspirin [Adult Low Dose Aspirin] 81 mg tablet,delayed release (DR/EC) 81 mg PO DAILY Qty: 30 0RF terbinafine HCl 1 % Cream 1 applic TOPICAL BID triamcinolone acetonide 0.1 % Ointment 1 applic TOPICAL BID PRN (Reason: CONTACT DERMATITIS) calcium polycarbophil 625 mg Tablet 1,250 mg PO DAILY Colace 100 mg Capsule 100 mg PO TID PRN (Reason: SOFTEN STOOLS) azelastine 137 mcg (0.1 %) Teller,Non-Aerosol 1 spray INTRANASAL BID PRN (Reason: ALLERGIC RHINITIS) Rx Instructions: administer into each nostril Transderm-Scop 1 mg over 3 days Patch 3 Day 1 patch TRANSDERMAL Q3D PRN (Reason: Motion Sickness) loratadine 10 mg Tablet 10 mg PO DAILY multivitamin with iron Tablet 1 tab PO DAILY pregabalin 75 mg Capsule 75 mg PO BID Vitamin D3 50 mcg (2,000 unit) Tablet 50 mcg PO DAILY Probiotic 3 billion cell Capsule 3,000 mmu cells PO QPM Rx Instructions: administer with a meal Jardiance 25 mg Tablet 12.5 mg PO DAILY Discharge Orders: Discharge ED (Routine); Ordered 03/09/24 Ordered By: Kuldeep Wolfe Referrals: Michelle Burroughs, ALEJANDRA [Primary Care Provider] - Discharge Diet: Advance as tolerated Discharge Activity: Resume usual activity Patient Instructions: Lightheadedness (ED) Coding Level of Care Code ED Unit Coordinator for Katherine Jalloh
[2024-03-09] MEDS: ondansetron 2 mg/ML SDV 2 mL 4 MG IVP (11:28)
[2024-03-09 11:34] LABS: Basophils # 0.1 10^3/uL (0.0-0.1); Basophils % 0.9 %; Eosinophils # 0.4 10^3/uL (0.0-0.8); Eosinophils % 5.3 %; Hematocrit 41.1 % (37-53); Lymphocytes # 1.5 10^3/uL (0.8-4.8); Lymphocytes % 18.5 %; Mean Corpuscular HGB Conc 33.3 g/dL (30-55); Mean Corpuscular Hemoglobin 30.8 pg (27-33); Mean Corpuscular Volume 92.4 fl (82-101); Mean Platelet Volume 10.2 fL (7.4-10.4); Monocytes # 0.9 10^3/uL (0.2-0.9); Monocytes % 10.9 %; Neutrophils # 5.06 10^3/uL (1.8-7.7); Neutrophils % 64.1 %; Nucleated Red Blood Cells % 0 %; Platelet Count 252 10^3/cmm (157-399); Red Blood Count 4.45 10^6/uL (3.85-5.65); Red Cell Distribution Width 13.6 % (12.1-15.1); White Blood Count 7.89 10^3/uL (3.29-11.43)
--- NOTE | 2024-03-09 11:47 | PC.PHAR ---
PT IS [facility] MED LIST 03/09/24 11:47AM
[2024-03-09 11:52] LABS: INR 0.99 (0.8-1.2)
[2024-03-09 11:58] LABS: Troponin(5th) Baseline 63 ng/L (0-15)
[2024-03-09 12:09] LABS: Alanine Aminotransferase 17 U/L (0-41); Albumin Level 4.2 g/dL (3.5-5.2); Alkaline Phosphatase 78 U/L (40-130); Aspartate Amino Transferase 20 U/L (0-40); Blood Urea Nitrogen 14 mg/dL (8-23); Calcium 9.2 mg/dL (8.5-10.5); Carbon Dioxide 20 mmol/L (22-29); Chloride 98 mmol/L (98-107); Globulin 2.7 g/dL (1.3-4.6); Glucose 137 mg/dL (65-115); NT Pro B Type Natriuretic Pept 250 pg/mL (0-450); Osmolality Calculated 277 mOsm/kg (285-295); Sodium 132 mmol/L (136-145); Total Bilirubin 0.4 mg/dL (0.15-1.2); Total Protein 6.9 g/dL (6.6-8.7)
[2024-03-09 12:10] LABS: Anion Gap 18.6 (5-19); Potassium 4.6 mmol/L (3.5-5.1)
--- NOTE | 2024-03-09 13:06 | ECG_ITS ---
[facility] Test Date: 2024-03-09 Pat Name: Fidel Holliday Department: Room: Gender: Male Lopper: : 1945 Requested By: Kuldeep Wolfe Order Number: [id number] Hortensia MD: Deniz Buckley M.D. Measurements Intervals [place] Rate: 75 P: 78 CA: 235 QRS: -71 QRSD: 140 T: 48 QT: 396 QTc: 445 Interpretive Statements SINUS RHYTHM WITH FIRST DEGREE AV BLOCK INTRAVENTRICULAR CONDUCTION DELAY [130+ ms QRS DURATION] MINIMAL VOLTAGE CRITERIA FOR LVH, CONSIDER NORMAL VARIANT [MEETS CRITERIA IN ONE OF: R(aVL), S(V1), R(V5), R(V5/V6)+S(V1)] PROBABLE SEPTAL MYOCARDIAL INFARCTION , PROBABLY OLD [35 ms Q WAVE IN V1/V2] PROBABLE LATERAL MYOCARDIAL INFARCTION , PROBABLY OLD [35 ms Q WAVE IN I/aVL/V5/V6] Compared to ECG 03/09/2024 10:39:49 Intraventricular conduction delay now present Right bundle-branch block no longer present Left anterior fascicular block no longer present Myocardial infarct finding still present Electronically Signed On 03-09-2024 16:28:37 CDT by Deniz Buckley M.D. [id number]
[2024-03-09 13:41] LABS: Troponin 5 2HR 68.66 ng/L (0-15); Troponin 5 2HR Delta 5.66 ABS# (0-10)
--- NOTE | 2024-03-10 07:38 | DCPLANNER ---
messaged heart care for er f/u
== END 2024-03-09 14:24 | disposition home or self-care (01) ==
PROVIDERS: Emergency Provider Emergency Medicine; PCP Nurse Practitioner Family
DX: R42 Dizziness and giddiness (principal); Z79.82 Long term (current) use of aspirin; Z79.4 Long term (current) use of insulin; Z87.891 Personal history of nicotine dependence; I25.10 Atherosclerotic heart disease of native coronary artery without angina pectoris; J44.9 Chronic obstructive pulmonary disease, unspecified; I10 Essential (primary) hypertension; E11.9 Type 2 diabetes mellitus without complications
CPT/HCPCS: 36415; 70450; 71045; 80053; 83880; 84484; 85025; 85610; 93005; 96374; 99285; J2405

== ENCOUNTER 2024-03-16 13:19 | Outpatient (RCR) | payer OTHER, SELFPAY | END 2024-04-01 09:20 | disposition home or self-care (01) | LOC: CR 13:19 | PROVIDERS: PCP Nurse Practitioner Family; Referring Provider Nurse Practitioner Family; Visit Provider Nurse Practitioner Family | DX: I25.2 Old myocardial infarction (principal) | CPT/HCPCS: 93798 ==

== ENCOUNTER → 2024-03-19 10:50 | Outpatient (BNVA) | payer OTHER, SELFPAY | PROVIDERS: PCP Nurse Practitioner Family; Visit Provider Nurse Practitioner Family | DX: I25.10 Atherosclerotic heart disease of native coronary artery without angina pectoris (principal); Z09 Encounter for follow-up examination after completed treatment for conditions other than malignant neoplasm; Z87.891 Personal history of nicotine dependence | CPT/HCPCS: 99214 ==

== ENCOUNTER 2024-03-22 06:01 | Outpatient (CLI) | payer OTHER, SELFPAY ==
[2024-03-22] VITALS (48 sets, daily range): BP systolic 124–184; BP diastolic 64–111; PULSE 66–103; RESP 13–30; TEMP 36.7; O2SAT 93–99; BMI 27.6; BMI 26.9
--- NOTE | 2024-03-22 06:30 | XACV_ITS ---
Exam Room: 2 Ht: 178 cm Wt: 88 kg BSA: 2.10 m2 Gender: Male : 1945 Any Known Allergies: Other Exam Priority: Routine Procedure(s): Procedure Description: Diagnostic procedure Procedure Description: PCI procedure Procedure Description: Left Heart Catheterization Procedure Description: Left ventriculography Procedure Description: Drug Eluting Coronary Stent Procedure Description: PTCA Procedure Description: Miscellaneous Procedure Description: ACT Procedure Description: Coronary Angiography Diagnostic Cath Status: Elective Diagnostic Findings * Left Main has no significant disease. * Circumflex has moderate diffuse disease. OM 2 is totally occluded. OM 3 is small sized with severe diffuse disease. * Mid Left Anterior Descending: mild 40% stenosis, KIRILL: 3 flow. It gives rise to large sized diagonal artery that is same size as LAD. It has severe 90% stenosis. * Right Coronary Artery has mild to moderate diffuse luminal irregularities. * 1st Diagonal: severe 90% stenosis, KIRILL: 3 flow. * Second Obtuse Marginal Branch Segment: total occlusion, KIRILL: 0 flow. * Coronary angiography shows right dominance. PCI Status: Elective Interventional Findings * Procedure detail: We engaged left main artery with XB 3.5 guide catheter. IV heparin was administered to maintain anticoagulation. 0.014 run-through guidewire was used to cross the diagonal artery stenosis and was placed in distal vessel. We predilated the stenosis with 2.5 x 12 mm NC balloon. This was followed by placement of 2.5 x 22 mm resolute [place] drug-eluting stent. At this time final angiogram was performed that showed excellent stent expansion, KIRILL-3 flow and no residual stenosis. Guidewire and guide catheter were removed. Patient left the Rand Tacker in a stable condition.. * 1st Diagonal: 90% stenosis treated with a MDT NC EUPHORA RX [id number] BALLOON, and MDT R TAL 2.5X22 BRINA. 0% residual stenosis, KIRILL: 3 flow. Conclusions 1. Severe large size diagonal artery stenosis s/p successful revascularization with 1 stent.. 2. Normal left ventricular systolic function. Ejection fraction of 55%. 3. 1st Diagonal was treated with a Balloon, and Drug Eluting Stent. Recommendations * Dual antiplatelet therapy with aspirin and plavix. * High intensity statin therapy. * Outpatient cardiology follow up in 2-4 weeks. Interventional RX Recommendation: PCI w/o planned CABG Diagnostic RX Recommendation: PCI w/o planned CABG Anticoagulation: Heparin Ventriculography Ejection Fraction: 55.0 % Pressures Phase:Rest AO : 102 / 63 ( 81 ) @ 8:44:00 AM 103 / 60 ( 80 ) @ 8:48:00 AM 118 / 59 ( 84 ) @ 8:54:00 AM 128 / 65 ( 93 ) @ 8:57:00 AM 104 / 62 ( 82 ) @ 9:00:00 AM 178 / 66 ( 109 ) @ 9:07:00 AM 178 / 66 ( 110 ) @ 9:07:00 AM LV : 189 / -4 / 16 @ 9:06:00 AM 200 / 0 / 30 @ 9:07:00 AM 191 / -3 / 24 @ 9:07:00 AM Valves Phase:DefaultPhase AV : 13.0 @ 8:22:18 AM AV Mean Gradient: 15.0 @ 8:22:18 AM Clinical Evaluation EBL: 5mL-10mL Procedural Details Pre-Procedure Time Out. Identified patient by full name and date of as verbalized by the patient/guarantor. Does the consent match the physician's order: Yes. Accurate & Complete Informed Consent: Yes. Inpatient/Outpatient History & Physical on Chart: Yes. If H&P is completed, is and addenduem needed: No; If yes, is the addendum complete: N/A. Visualize and Verify Site with Patient/Guarantor: N/A. Relevant Radiology Images available: Yes. Pre-op teaching completed and patient verbalized understanding. The risks, benefits, and alternatives of sedation and/or procedure were discussed by physician. The patient agrees to continue. Procedure started. Physician arrived. Current Diagnosis : Chest Pain. [facility] Clinical Fraility Score: 4: Vulnerable. Rand Tacker Indications: Other. Chest Pain Symptom Assessment: Typical Angina Symptoms. Correct patient, site and procedure confirmed by cath team. Current diagnosis: Chest Pain. IV Site on Arrival: 20 gauge in the left forearm. IV Fluids: 0.9% NaCl at KVO. 0 mL infused prior to quality assurance qa lab analyst. Pre Procedural Pulses: bilateral dorsalis pedis was Doppled. Pre Procedural Pulses: bilateral posterior tibial was Doppled. Pre Procedural Pulses: bilateral radial was 3+. Oxygen started at 2liters/min via nasal canula. right groin was prepped with chloroprep then draped in the usual sterile fashion. Baseline sample Acquired. HR: 65 BPM. right radial was prepped with chloroprep then draped in the usual sterile fashion. Physician scrubbed in. Immediate Pre-Procedure Time Out. Correct Patient: Yes; Correct Procedure: Yes; Correct Site: Yes; Correct Patient Position: Yes; Correct Supplies: Yes; Dried Flammable Prep: Yes; Blood Products Available: N/A;. Lidocaine 1% infiltrated to the right radial. Arterial access obtained. A 5 serbian TIG catheter in over wire. Multiple views taken of left coronary artery. Catheter redirected to the RCA. Multiple views taken of right coronary artery. Catheter removed over the exchange wire. 6 serbian XB 3.5 guide catheter was inserted over the wire. Patient placed on an oxi-mask. Runthrough guidewire was advanced through the guide catheter to lesion in the diaganol. Inflation number : 1 A MDT JAE EUPHORA RX [id number] BALLOON was prepped and advanced across the 1st Diag , then inflated to 12 JAVIER for 0:11 seconds. Balloon out. Results checked. Inflation Number : 2 Lilia AMADOR So TAL 2.5X22 BRINA -Lot Number# _[id number] EXP: 12/05/2024 was prepped and advanced across the 1st Diag. The stent was deployed at 12 JAVIER for 0:21 seconds. Stent balloon out over wire. Wire out. Results checked. ACT drawn. Results out of range high seconds. Therapeutic limits - pre-heparin administration 90-150 seconds and monitoring heparin during a vascular procedure >250 seconds. Guide catheter out. A 5 serbian Angled Pig catheter in over wire. EDP Sample taken: LV 189/-5,16; HR: 83 BPM; SpO2: 99%. LV gram performed in STEELE @ 10 mL/second for a total of 30 mL. EDP Sample taken: LV 200/-1,30; HR: 83 BPM; SpO2: 99%. Pullback taken: LV 191/-4,24; AO 178/66(109); Mean: 15mmHg, Peak to Peak: 13mmHg, SEP: 18sec/min; HR: 79 BPM; SpO2: 99%. Catheter removed over the exchange wire. ACT drawn. Results 264 seconds. Therapeutic limits - pre-heparin administration 90-150 seconds and monitoring heparin during a vascular procedure >250 seconds. A TR Band was successful obtaining hemostatsis at the Right Radial artery insertion site. Post Procedure: Pulses reassessed and unchanged. PERRLA. Strong, equal hand certified medical technician assistant bilaterally. No VTE prophylaxis required. Medication's Wasted: Lidocaine 1% = 18 mL. Medication's Wasted: Nitro = 49.4 mcg. Vital chart was stopped. Medication's Wasted: Other = Fentanyl 50 mcg. Medication's Wasted: Heparin = 3000 units. Total IV fluids: 45 mL. Post-op diagnosis: Stent to Diag. Complications: None. Estimated blood loss: 5mL-10mL. Responsiveness - Normal response to verbal stimuli; alert and oriented, PERRLA. Airway - Unaffected, no intervention required; spontaneous ventilation. Circulation: W/N/L, pulses unchanged. Nausea/Vomiting: No. Procedure completed. Patient transferred by wheelchair to CPRU. Access Site Site: Right Radial artery Sheath Size: 6 Fr Hemostasis Method: TR Band Hemostasis Success: Successful Procedure Medications Start: 7:33 AM Stop: 7:33 AM Medication: Versed 1 mg and Fentanyl 25 mcg Amount: 1 Route: I.V. Start: 7:36 AM Stop: 7:36 AM Medication: Zofran (ondansetron) Amount: 4 mg Route: I.V. Start: 7:40 AM Stop: 7:40 AM Medication: Versed Amount: 1 mg Route: I.V. Start: 7:41 AM Stop: 7:41 AM Medication: Nitrogylcerin Amount: 200 mcg Route: I.A. Start: 7:42 AM Stop: 7:42 AM Medication: Fentanyl Amount: 25 mcg Route: I.V. Start: 7:43 AM Stop: 7:43 AM Medication: Heparin Amount: 5000 units Route: I.V. Start: 7:50 AM Stop: 7:50 AM Medication: Nitrogylcerin Amount: 200 mcg Route: I.A. Start: 7:53 AM Stop: 7:53 AM Medication: Heparin Amount: 3000 units Route: I.V. Start: 8:01 AM Stop: 8:01 AM Medication: Nitrogylcerin Amount: 200 mcg Route: I.C. I, the attending physician, have reviewed and verified all procedure medications. Yes, all medications given per verbal order History/Risk Factors Hypertension: Yes Dyslipidemia: Yes Peripheral Arterial Disease (PAD): Yes Myocardial Infarction (NM): Yes Obesity: No Renal Disease: No Tobacco Use: Former Prior Interventions PCI: Yes CABG: No Valve Surgery: No Date of PCI: 12/28/2023 Report Signatures Finalized by Deniz Buckley MD on 03/22/2024 10:28 AM
[2024-03-22 06:44] LABS: Basophils # 0.1 10^3/uL (0.0-0.1); Basophils % 0.7 %; Eosinophils # 0.5 10^3/uL (0.0-0.8); Eosinophils % 5.4 %; Hematocrit 45.4 % (37-53); Lymphocytes # 1.7 10^3/uL (0.8-4.8); Lymphocytes % 18.7 %; Mean Corpuscular HGB Conc 33.3 g/dL (30-55); Mean Corpuscular Hemoglobin 31.3 pg (27-33); Mean Platelet Volume 10.6 fL (7.4-10.4); Monocytes % 11.3 %; Neutrophils # 5.63 10^3/uL (1.8-7.7); Neutrophils % 63.7 %; Nucleated Red Blood Cells % 0 %; Platelet Count 259 10^3/cmm (157-399); Red Blood Count 4.83 10^6/uL (3.85-5.65); Red Cell Distribution Width 13.9 % (12.1-15.1); White Blood Count 8.84 10^3/uL (3.29-11.43)
[2024-03-22] MEDS: aspirin 325 mg Tablet PO (06:45)
[2024-03-22] MEDS: diphenhydrAMINE 50 mg Capsule PO (06:50)
[2024-03-22 06:57] LABS: Anion Gap 18.9 (5-19); Blood Urea Nitrogen 15 mg/dL (8-23); Calcium 9.4 mg/dL (8.5-10.5); Carbon Dioxide 23 mmol/L (22-29); Chloride 101 mmol/L (98-107); Creatinine Clr Calc Pharmacy 72.9789; Glucose 127 mg/dL (65-115); Osmolality Calculated 290 mOsm/kg (285-295); Potassium 3.9 mmol/L (3.5-5.1); Sodium 139 mmol/L (136-145)
--- NOTE | 2024-03-22 07:35 | W.PM.OPSUD ---
Surgery/Procedure H&P Update DATE OF PROCEDURE: March 22, 2024 DATE H&P PERFORMED: 03/19/24 H&P UPDATE INFORMATION: I have reviewed H&P completed within last 30 days, I have examined patient prior to procedure and No changes to prior documentation PREOP DIAGNOSIS: Worsening angina PRIMARY INDICATION FOR PROCEDURE: Worsening angina PLANNED PROCEDURE: Operation Date: 03/22/24 07:00 Proposed Procedures p Cardiac Catheterization(Left) - Deniz Buckley M.D Possible percutaneous coronary intervention PATIENT REASSESSED PRIOR TO SEDATION, WITH NO CHANGE NOTED: Yes PHYSICAL EXAM: alert, oriented x 3, clear to auscultation bilaterally and regular rate & rhythm AIRWAY EVAL/ANESTHESIA PLAN: normal airway, ASA III, Local Anesthesia, Risks, benefits & alternatives of sedation and/or procedure discussed and Patient agrees to continue as planned ADDITIONAL INFORMATION: Moderate sedation
[2024-03-22 09:03] LABS: Glucose Point of Care 127 mg/dL (70-110)
--- NOTE | 2024-03-22 12:13 | PC.NURSE ---
1205 - TR band off, no swelling or bleeding noted at this time. Will continue to monitor.
[2024-03-22 17:12] LABS: Glucose Point of Care 149 mg/dL (70-110)
[2024-03-22] MEDS: insulin lispro 100 unit/1 mL SUBCUT (17:15)
[2024-03-22] MEDS: carvedilol 3.125 mg Tablet PO (17:15)
[2024-03-22] MEDS: amlodipine 10 mg Tablet PO (20:14)
[2024-03-22 20:15] LABS: Glucose Point of Care 126 mg/dL (70-110)
--- NOTE | 2024-03-22 23:11 | PC.NURSE ---
High BP - Called Dr Buckley at 23:10 due to high blood pressure. Order received for hydralazine 10 mg IVP for a systolic greater than 180.
[2024-03-23] VITALS (24 sets, daily range): BP systolic 94–181; BP diastolic 52–69; PULSE 77–104; RESP 13–23; TEMP 36.8–36.9; O2SAT 91–96; BMI 26.4
[2024-03-23] MEDS: hyDRALAzine 20 mg/mL INJ 1 mL 10 MG IVP (00:11)
[2024-03-23 04:11] LABS: Basophils # 0.1 10^3/uL (0.0-0.1); Basophils % 0.4 %; Eosinophils # 0.3 10^3/uL (0.0-0.8); Eosinophils % 2.4 %; Hematocrit 46.5 % (37-53); Lymphocytes # 0.8 10^3/uL (0.8-4.8); Lymphocytes % 6.4 %; Mean Corpuscular HGB Conc 32.5 g/dL (30-55); Mean Corpuscular Hemoglobin 30.9 pg (27-33); Mean Corpuscular Volume 95.1 fl (82-101); Mean Platelet Volume 10.7 fL (7.4-10.4); Monocytes % 7.8 %; Neutrophils # 10.16 10^3/uL (1.8-7.7); Neutrophils % 82.7 %; Nucleated Red Blood Cells % 0 %; Platelet Count 241 10^3/cmm (157-399); Red Blood Count 4.89 10^6/uL (3.85-5.65); Red Cell Distribution Width 14.1 % (12.1-15.1)
[2024-03-23 04:34] LABS: Anion Gap 17.5 (5-19); Blood Urea Nitrogen 16 mg/dL (8-23); Calcium 9.1 mg/dL (8.5-10.5); Carbon Dioxide 23 mmol/L (22-29); Chloride 99 mmol/L (98-107); Creatinine Clr Calc Pharmacy 58.9394; Glucose 159 mg/dL (65-115); Osmolality Calculated 285 mOsm/kg (285-295); Potassium 4.5 mmol/L (3.5-5.1); Sodium 135 mmol/L (136-145)
[2024-03-23] MEDS: losartan 50 mg Tablet 100 MG PO (05:01)
[2024-03-23 08:05] LABS: Glucose Point of Care 177 mg/dL (70-110)
[2024-03-23] MEDS: insulin lispro 100 unit/1 mL SUBCUT (08:13)
[2024-03-23] MEDS: atorvastatin 40 mg Tablet PO (08:38)
[2024-03-23] MEDS: carvedilol 3.125 mg Tablet PO (08:38)
[2024-03-23] MEDS: aspirin 81 mg EC Tablet PO (08:38)
[2024-03-23] MEDS: clopidogrel 75 mg Tablet PO (08:39)
[2024-03-23] MEDS: FUROsemide 10 mg/mL SDV 2mL 20 MG IVP (09:10)
--- NOTE | 2024-03-23 09:12 | PM.DCS ---
Discharge Providers Date of Admission: March 22, 2024 Date of Discharge: March 23, 2024 Attending Provider at Admission: Deniz Buckley MD Attending Provider at Discharge: Deniz Buckley M.D Primary Care Provider: Michelle Burroughs APRN Reason for Visit Reason for Visit: I25.10 Brief History: 78-year-old man with past medical history of coronary artery disease has been noticing worsening chest pain symptoms concerning for possible unstable angina. Plan for coronary angiogram with possible PCI. Hospital Course Hospital Course Coronary angiogram demonstrated previously treated OM vessel is totally occluded now. Patient has severe stenosis of large sized diagonal artery status post successful revascularization with 1 stent. Patient was observed overnight and stayed stable. Was discharged home in a stable condition on dual antiplatelet therapy. Physical Exam Narrative: GENERAL: Patient is alert, awake and oriented x3. [] NECK: No jugular vein distension. [] HEENT: No cyanosis. No icterus. No pallor. [] HEART: Regular S1 and S2. No murmur, rub or gallop. [] LUNGS: Clear to auscultate bilaterally. [] CENTRAL NERVOUS SYSTEM: Grossly nonfocal. [] EXTREMITIES: Lower extremities are warm with palpable pulses on right lower extremity. No access site complications. 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 Routine Exams 03/22/24 06:30 Completed Laboratory Results WBC 12.30 10^3/uL (3.29-11.43) H 03/23/24 03:29 RBC 4.89 10^6/uL (3.85-5.65) 03/23/24 03:29 Hgb 15.10 g/dL (11.27-16.99) 03/23/24 03:29 Hct 46.5 % (37-53) 03/23/24 03:29 MCV 95.1 fl (82-101) 03/23/24 03:29 MCH 30.9 pg (27-33) 03/23/24 03:29 MCHC 32.5 g/dL (30-55) 03/23/24 03:29 RDW 14.1 % (12.1-15.1) 03/23/24 03:29 Plt Count 241 10^3/cmm (157-399) 03/23/24 03:29 MPV 10.7 fL (7.4-10.4) H 03/23/24 03:29 Neut % (Auto) 82.7 % 03/23/24 03:29 Lymph % (Auto) 6.4 % 03/23/24 03:29 [place] % (Auto) 7.8 % 03/23/24 03:29 Eos % (Auto) 2.4 % 03/23/24 03:29 Baso % (Auto) 0.4 % 03/23/24 03:29 Neut # (Auto) 10.16 10^3/uL (1.8-7.7) H 03/23/24 03:29 Lymph # (Auto) 0.8 10^3/uL (0.8-4.8) 03/23/24 03:29 [place] # (Auto) 1.0 10^3/uL (0.2-0.9) H 03/23/24 03:29 Eos # (Auto) 0.3 10^3/uL (0.0-0.8) 03/23/24 03:29 Baso # (Auto) 0.1 10^3/uL (0.0-0.1) 03/23/24 03:29 Nucleated RBC % (auto) 0 % 03/23/24 03: Nucleated RBCs # 0.0 /100WBC 03/23/24 03:29 Sodium 135 mmol/L (136-145) L 03/23/24 03:29 Potassium 4.5 mmol/L (3.5-5.1) 03/23/24 03:29 Chloride 99 mmol/L (98-107) 03/23/24 03:29 Carbon Dioxide 23 mmol/L (22-29) 03/23/24 03:29 Anion Gap 17.5 (5-19) 03/23/24 03:29 BUN 16 mg/dL (8-23) 03/23/24 03:29 Creatinine 1.1 mg/dL (0.7-1.2) 03/23/24 03:29 GFR Calculation Not Reportable 03/23/24 03:29 Glucose 159 mg/dL (65-115) H 03/23/24 03:29 POC Glucose 177 mg/dL (70-110) H 03/23/24 08:02 Calculated Osmolality 285 mOsm/kg (285-295) 03/23/24 03:29 Calcium 9.1 mg/dL (8.5-10.5) 03/23/24 03:29 Vitals Last Vital Signs Temp 98.5 F 03/23/24 08:00 Pulse 99 03/23/24 09:07 Resp 19 H 03/23/24 08:00 BP 131/57 03/23/24 05:30 Pulse Ox 94 03/23/24 09:07 O2 Del Method Room Air 03/23/24 09:07 Discharge Plan Discharge Patient Disposition: Home Health Service Prescriptions: New clopidogrel 75 mg Tablet 75 mg PO DAILY Qty: 90 3RF Continued losartan 100 mg tablet 100 mg PO QAM montelukast [Singulair] 10 mg tablet 10 mg PO QPM pantoprazole 40 mg tablet,delayed release (DR/EC) 40 mg PO QAM atorvastatin 40 mg tablet 40 mg PO DAILY Qty: 90 4RF carvedilol 3.125 mg tablet 3.125 mg PO BID Qty: 60 1RF Rx Instructions: must administer with a meal/food fluticasone propionate [Flonase Allergy Relief] 50 mcg/actuation [place],Suspension 2 spray intranasal DAILY insulin aspart U-100 [Novolog FlexPen U-100 Insulin] 100 unit/mL (3 mL) insulin pen 10 unit SUBCUT TID acetaminophen [Tylenol Extra Strength] 500 mg Tablet 1,000 mg PO Q6H PRN (Reason: pain) tamsulosin 0.4 mg capsule 0.4 mg PO QPM amlodipine 10 mg tablet 10 mg PO BEDTIME Lantus U-100 Insulin 100 unit/mL solution 50 unit SUBCUT DAILY@21 ipratropium bromide 21 mcg (0.03 %) spray,non-aerosol 2 spray INTRANASAL TID PRN (Reason: Allergy Symptoms) aspirin [Adult Low Dose Aspirin] 81 mg tablet,delayed release (DR/EC) 81 mg PO DAILY Qty: 30 0RF terbinafine HCl 1 % Cream 1 applic TOPICAL BID triamcinolone acetonide 0.1 % Ointment 1 applic TOPICAL BID PRN (Reason: CONTACT DERMATITIS) calcium polycarbophil 625 mg Tablet 1,250 mg PO DAILY docusate sodium [Colace] 100 mg Capsule 100 mg PO TID PRN (Reason: SOFTEN STOOLS) azelastine 137 mcg (0.1 %) [place],Non-Aerosol 1 spray INTRANASAL BID PRN (Reason: ALLERGIC RHINITIS) Rx Instructions: administer into each nostril scopolamine base [Transderm-Scop] 1 mg over 3 days Patch 3 Day 1 patch TRANSDERMAL Q3D PRN (Reason: Motion Sickness) loratadine 10 mg Tablet 10 mg PO DAILY multivitamin with iron Tablet 1 tab PO DAILY cholecalciferol (vitamin D3) [Vitamin D3] 50 mcg (2,000 unit) Tablet 50 mcg PO DAILY Probiotic 3 billion cell Capsule 3,000 mmu cells PO QPM Rx Instructions: administer with a meal Jardiance 25 mg Tablet 12.5 mg PO DAILY Discharge Orders: Discharge Order (Routine); Ordered 03/23/24 Ordered By: Deniz Buckley Referrals: [facility] [Outside] Mansi Moreno FNP [Nurse Practitioner] - 03/30/24 1:15 pm Diet: Diabetic Activity: Increase activity as tolerated Patient Instructions: Clopidogrel (By mouth), Coronary Angioplasty (DC), Post Angiogram Home Care Instructions Discharge Date/Time: 03/23/24 11:10 Discharge Attestations Time Spent in Discharge Care*: less than 30 min Status at Discharge: Cognitive status at discharge: cognitively intact, Behavioral status at discharge: cooperative, Quality Metrics Clinical Quality Measures [ No reported AMI, CVA or VTE this stay] Coding Level of Care Code Acute Code for Chg Yeimi
== END 2024-03-23 11:10 | disposition home health service (06) ==
LOC: CCL 06:10 → ICU 03-23 05:22
PROVIDERS: PCP Nurse Practitioner Family; Visit Provider Internal Medicine
DX: I25.10 Atherosclerotic heart disease of native coronary artery without angina pectoris (principal); I25.82 Chronic total occlusion of coronary artery; I10 Essential (primary) hypertension; E78.5 Hyperlipidemia, unspecified; I25.2 Old myocardial infarction; Z87.891 Personal history of nicotine dependence; Z86.73 Personal history of transient ischemic attack (TIA), and cerebral infarction without residual deficits; J44.9 Chronic obstructive pulmonary disease, unspecified; N40.0 Benign prostatic hyperplasia without lower urinary tract symptoms; E11.40 Type 2 diabetes mellitus with diabetic neuropathy, unspecified; Z79.82 Long term (current) use of aspirin; K21.9 Gastro-esophageal reflux disease without esophagitis
CPT/HCPCS: 36415; 36416; 80048; 82962; 85025; 85347; 93458; 96372; 96374; 96375; 96376; 99152; 99153; C1725; C1769; C1874; C1887; C1894; C9600; J0360; J1644; J1815; J1940; J2250; J2405; J3010; J3490; J7030; Q0163; Q9967

== ENCOUNTER 2024-03-28 11:19 | Outpatient (RCR) | payer OTHER, SELFPAY | END 2024-04-26 23:59 | disposition home or self-care (01) | LOC: CR 11:19 | PROVIDERS: PCP Nurse Practitioner Family; Referring Provider Nurse Practitioner Family; Visit Provider Nurse Practitioner Family | DX: I25.2 Old myocardial infarction (principal) | CPT/HCPCS: 93798 ==

== ENCOUNTER → 2024-03-30 13:22 | Outpatient (BNVA) | payer OTHER, SELFPAY | PROVIDERS: PCP Nurse Practitioner Family; Visit Provider Nurse Practitioner Family | DX: I25.10 Atherosclerotic heart disease of native coronary artery without angina pectoris (principal); Z87.891 Personal history of nicotine dependence | CPT/HCPCS: 99213 ==

== ENCOUNTER 2024-04-27 12:18 | Outpatient (RCR) | payer OTHER, SELFPAY | END 2024-05-27 23:59 | disposition home or self-care (01) | LOC: CR 12:18 | PROVIDERS: PCP Nurse Practitioner Family; Referring Provider Nurse Practitioner Family; Visit Provider Nurse Practitioner Family | DX: I25.2 Old myocardial infarction (principal) | CPT/HCPCS: 93798; 94626 ==

== ENCOUNTER 2024-05-28 11:48 | Outpatient (RCR) | payer OTHER, SELFPAY | END 2024-06-26 23:59 | disposition home or self-care (01) | LOC: CR 11:48 | PROVIDERS: PCP Nurse Practitioner Family; Referring Provider Nurse Practitioner Family; Visit Provider Nurse Practitioner Family | DX: I25.2 Old myocardial infarction (principal) | CPT/HCPCS: 93798 ==

== ENCOUNTER 2024-06-04 12:42 | Outpatient (CLI) | payer OTHER, SELFPAY ==
--- NOTE | 2024-06-04 12:45 | USCV_ITS ---
Fidel Holliday Age: 78 Gender: M : 1945 Exam Date: 06/04/2024 12:47 Ordering Phys: Amadeo Aguilar MD ([email or web address]) Technologist: CT Exam Location: [facility] Indication: Risk Factors: Previous Vascular Surgery: Right Brachial BP: / Left Brachial BP: / Right Left Velocity (cm/s) Spectral Plaque Velocity (cm/s) Spectral Plaque Syst/Diast Broadening Syst/Diast Broadening 81.50/ 11.50 Prox CCA 86.20 / 15.20 67.10/ 12.00 Mid CCA 72.50 / 11.90 62.70/ 13.10 Distal CCA 53.00 / 11.80 72.10/ 12.80 Prox ICA 74.20 / 11.90 99.90/ 14.60 Mid ICA 107.10/ 22.30 91.90/ 17.60 Distal ICA 103.70/ 20.60 226.40 ECA 305.20 1.60 ICA/CCA 2.00 Antegrade Vertebral Antegrade 47.90/ 9.40 cm/s 41.70/ 9.60 cm/s Bi Subclavian Bi 115.1 97.90 0 CONCLUSIONS Right ICA stenosis <50%. Moderate atheromatous plaque right carotid bulb/ICA. Left ICA stenosis <50%. Moderate atheromatous plaque left carotid bulb/ICA. Intimal thickening in the common carotid arteries and internal carotid arteries bilaterally. Normal antegrade Doppler flow noted in the right vertebral artery. Normal antegrade Doppler flow noted in the left vertebral artery. Adebayo Lu MD (Electronically Signed) Final Date: 04 June 2024 15:02 S
== END 2024-06-04 12:43 | disposition home or self-care (01) ==
LOC: RAD 12:42
PROVIDERS: PCP Nurse Practitioner Family; Visit Provider Internal Medicine Cardiovascular Disease
DX: I65.23 Occlusion and stenosis of bilateral carotid arteries (principal)
CPT/HCPCS: 93880

== ENCOUNTER → 2024-06-11 10:28 | Outpatient (BNVA) | payer OTHER, SELFPAY | PROVIDERS: PCP Nurse Practitioner Family; Visit Provider Internal Medicine Cardiovascular Disease | DX: I25.10 Atherosclerotic heart disease of native coronary artery without angina pectoris (principal); I73.9 Peripheral vascular disease, unspecified; Z87.891 Personal history of nicotine dependence; I10 Essential (primary) hypertension; R42 Dizziness and giddiness; I65.22 Occlusion and stenosis of left carotid artery | CPT/HCPCS: 99214 ==

== ENCOUNTER 2024-06-27 08:55 | Emergency (ER) | payer OTHER, SELFPAY ==
[2024-06-27] VITALS (11 sets, daily range): BP systolic 138–199; BP diastolic 66–80; PULSE 62–97; RESP 11–22; O2SAT 94–100; BMI 26.1
--- NOTE | 2024-06-27 09:20 | XRR_ITS ---
PROCEDURE INFORMATION: Exam: XR Chest Exam date and time: 06/27/2024 9:40 AM Age: 79 years old Clinical indication: Pain; Other: Dizziness, acid reflux, sore throat; Chest pressure; Prior surgery; Surgery date: 6+ months; Surgery type: Stent in left carotid; Additional info: Chest pain TECHNIQUE: Imaging protocol: Radiologic exam of the chest. Views: 1 view. COMPARISON: CR XR chest 1V portable [id number] 03/09/2024 10:56 AM FINDINGS: Lungs: No focal consolidation. Pleural spaces: No significant pleural effusion. No definitive pneumothorax. Heart/Mediastinum: The cardiomediastinal silhouette is stable and within normal limits. Vasculature: Mild tortuosity of the descending thoracic aorta. Bones/joints: Unremarkable. XR/XR chest 1V portable [id number] IMPRESSION: No acute cardiopulmonary disease.
[2024-06-27 09:37] LABS: Basophils # 0.1 10^3/uL (0.0-0.1); Basophils % 0.7 %; Eosinophils # 0.4 10^3/uL (0.0-0.8); Eosinophils % 4.6 %; Hematocrit 44.1 % (37-53); Lymphocytes # 1.3 10^3/uL (0.8-4.8); Lymphocytes % 14.1 %; Mean Corpuscular HGB Conc 33.6 g/dL (30-55); Mean Corpuscular Hemoglobin 30.9 pg (27-33); Mean Corpuscular Volume 92.1 fl (82-101); Mean Platelet Volume 10.5 fL (7.4-10.4); Monocytes # 0.9 10^3/uL (0.2-0.9); Monocytes % 9.7 %; Neutrophils # 6.41 10^3/uL (1.8-7.7); Neutrophils % 70.6 %; Nucleated Red Blood Cells % 0 %; Platelet Count 263 10^3/cmm (157-399); Red Blood Count 4.79 10^6/uL (3.85-5.65); Red Cell Distribution Width 13.7 % (12.1-15.1); White Blood Count 9.08 10^3/uL (3.29-11.43)
--- NOTE | 2024-06-27 09:52 | ECG_ITS ---
[facility] Test Date: 2024-06-27 Pat Name: Fidel Holliday Department: Room: Gender: Male Director Of Home Health Services: : 1945 Requested By: Lynsey Kwon Order Number: [id number] Hortensia MD: Deniz Buckley M.D. Measurements Intervals [place] Rate: 69 P: 0 ID: 0 QRS: -71 QRSD: 154 T: 66 QT: 407 QTc: 436 Interpretive Statements SINS RHYTHM INTRAVENTRICULAR CONDUCTION DELAY [130+ ms QRS DURATION] LATERAL MYOCARDIAL INFARCTION , OF INDETERMINATE AGE [40+ ms Q WAVE AND/OR ST/T ABNORMALITY IN I/aVL/V5/V6] Compared to ECG 03/09/2024 13:38:27 Sinus rhythm no longer present First degree AV block no longer present Myocardial infarct finding still present Electronically Signed On 06-27-2024 18:46:50 HALF BACKER by Deniz Buckley M.D. [id number]
[2024-06-27 09:53] LABS: Troponin(5th) Baseline 17 ng/L (0-15)
[2024-06-27 09:59] LABS: Alanine Aminotransferase 15 U/L (0-41); Albumin Level 4.4 g/dL (3.5-5.2); Alkaline Phosphatase 88 U/L (40-130); Anion Gap 17.5 (5-19); Aspartate Amino Transferase 16 U/L (0-40); Blood Urea Nitrogen 16 mg/dL (8-23); Calcium 9.6 mg/dL (8.5-10.5); Carbon Dioxide 23 mmol/L (22-29); Chloride 99 mmol/L (98-107); Creatinine Clr Calc Pharmacy 69.9456; Globulin 2.5 g/dL (1.3-4.6); Glucose 206 mg/dL (65-115); Lipase 22 U/L (13-60); Osmolality Calculated 287 mOsm/kg (285-295); Potassium 4.5 mmol/L (3.5-5.1); Sodium 135 mmol/L (136-145); Total Bilirubin 0.5 mg/dL (0.15-1.2); Total Protein 6.9 g/dL (6.6-8.7)
[2024-06-27 10:23] LABS: NT Pro B Type Natriuretic Pept 164 pg/mL (0-450)
--- NOTE | 2024-06-27 11:38 | ECG_ITS ---
[facility]: 2024-06-27 Pat Name: Fidel Holliday Department: Room: Gender: Male Business Mgr: : 1945 Requested By: Lynsey Kwon Order Number: [id number] Hortensia MD: Deniz Buckley M.D. Measurements Intervals [place] Rate: 63 P: 70 [place]: 230 QRS: -66 QRSD: 147 T: 38 QT: 433 QTc: 446 Interpretive Statements SINUS RHYTHM WITH FIRST DEGREE AV BLOCK INTRAVENTRICULAR CONDUCTION DELAY [130+ ms QRS DURATION] LATERAL MYOCARDIAL INFARCTION , PROBABLY OLD [40+ ms Q WAVE AND/OR ST/T ABNORMALITY IN I/aVL/V5/V6] Compared to ECG 06/27/2024 09:52:15 First degree AV block now present Myocardial infarct finding still present Electronically Signed On 06-27-2024 18:59:40 CLERK TRAVEL RESERVATIONS by Deniz Buckley M.D. [id number]
--- NOTE | 2024-06-27 11:41 | ED_ITS ---
HPI - Abdominal Pain 2 General: Chief Complaint: Abdominal Pain Stated Complaint: dizzy/acid reflux Time Seen by Provider: 06/27/24 09:20 History of Present Illness: This patient is an 79-year-old presenting with epigastric pain, heartburn, shortness of breath. He also complains of dizziness which has been present for about 2 years. Uses bilateral scopolamine patches for this but says it has been getting worse lately. He also has a history of acid reflux for which he takes a medication. His medication dose was recently increased from once a day to twice a day. According to his medicine list that is pantoprazole 40 mg although he was unable to recall if that is the correct name. He denies chest pain except for what he describes as heartburn. These episodes are random but have been more constant today. He describes an acid taste in his mouth. He has had heart problems, 2 MIs since December. He has 1 stent and the other lesion could not be stented and was ballooned. They were told that it collapsed after the ballooning. He has been started on clopidogrel in the past few months. He also was started on Jardiance about a month ago and says that he has had a really dry mouth and feels like his throat is tight since being on that medication. He has felt short of breath today and that is worse when he has the episodes of burning in his chest. He also has increased dizziness when he had those episodes. He denies fevers, chills, cough. No nausea, vomiting, diarrhea, constipation. No changes in urination. No leg pain or swelling. No headaches, numbness, weakness. Related Data Home Medications Medication Instructions Recorded Confirmed losartan 100 mg tablet 100 mg PO QAM 11/08/19 06/27/24 montelukast 10 mg tablet 10 mg PO QPM 11/08/19 06/27/24 (Singulair) fluticasone propionate 50 2 spray intranasal DAILY 08/31/20 06/27/24 mcg/actuation nasal spray,suspension (Flonase Allergy Relief) acetaminophen 500 mg tablet 1,000 mg PO Q6H PRN pain 11/21/20 06/27/24 (Tylenol Extra Strength) amlodipine 10 mg tablet 10 mg PO BEDTIME 11/21/20 06/27/24 tamsulosin 0.4 mg capsule 0.4 mg PO QPM 11/21/20 06/27/24 insulin aspart U-100 100 unit/mL 10 unit SUBCUT TID 02/16/21 06/27/24 (3 mL) subcutaneous pen (Novolog FlexPen U-100 Insulin aspart) insulin glargine 100 unit/mL 50 unit SUBCUT DAILY@21 02/16/21 06/27/24 subcutaneous solution (Lantus U-100 Insulin) ipratropium bromide 21 mcg (0.03 2 spray intranasal TID PRN Allergy 02/16/21 06/27/24 %) nasal spray Symptoms azelastine 137 mcg (0.1 %) nasal 1 spray intranasal BID PRN 03/09/24 06/27/24 spray ALLERGIC RHINITIS calcium polycarbophil 625 mg tablet 1,250 mg PO DAILY 03/09/24 06/27/24 cholecalciferol (vitamin D3) 50 50 mcg PO DAILY 03/09/24 06/27/24 mcg (2,000 unit) tablet (Vitamin D3) docusate sodium 100 mg capsule 100 mg PO TID PRN SOFTEN STOOLS 03/09/24 06/27/24 (Colace) empagliflozin 25 mg tablet 12.5 mg PO DAILY 03/09/24 06/27/24 (Jardiance) lactobacillus combination no.4 3 3,000 mmu cells PO QPM 03/09/24 06/27/24 billion cell capsule (Probiotic) loratadine 10 mg tablet 10 mg PO DAILY 03/09/24 06/27/24 multivitamin with iron 1 tab PO DAILY 03/09/24 06/27/24 scopolamine base 1 mg over 3 days 1 patch transdermal Q3D PRN [place] 03/09/24 06/27/24 transdermal patch (Transderm-Scop) Sickness terbinafine HCl 1 % topical cream 1 applic topical BID 03/09/24 06/27/24 triamcinolone acetonide 0.1 % 1 applic topical BID PRN CONTACT 03/09/24 06/27/24 topical ointment DERMATITIS Previous Rx's Medication Instructions Recorded aspirin 81 mg tablet,delayed 81 mg PO DAILY #30 tabs 12/29/23 release (Adult Low Dose Aspirin) atorvastatin 40 mg tablet 40 mg PO DAILY #90 tabs 12/29/23 carvedilol 3.125 mg tablet 3.125 mg PO BID #60 tabs 02/17/24 clopidogrel 75 mg tablet 75 mg PO DAILY #90 tabs 03/30/24 lansoprazole 30 mg capsule,delayed 30 mg PO BID #30 caps 06/27/24 release sucralfate 1 gram tablet (Carafate) 1 g PO Q6H #30 tabs 06/27/24 Allergies Allergy/AdvReac Type Severity Reaction Status Date / Time artichoke Allergy ALGY-Swell Verified 06/11/24 10:38 Lip/Tongue/Throat PFSH ED 2 PFSH: Medical History CAD (coronary artery disease) Peripheral vascular disease PAD (peripheral artery disease) Peripheral vascular disease Bilateral carotid artery stenosis Sleep apnea COPD (chronic obstructive pulmonary disease) Hypertension Seizure disorder Hearing loss History of left common carotid artery stent placement GERD (gastroesophageal reflux disease) Diabetes Surgical History Status post laparoscopic cholecystectomy (12/01/19) H/O knee surgery History of back surgery S/P appendectomy Status post colonoscopy with polypectomy H/O esophagogastroduodenoscopy Family History Other CAD (coronary artery disease) Cancer Dementia Diabetes Hyperlipidemia Hypertension Postsurgical cardiac pacemaker in situ Stroke Social History Smoking and tobacco/nicotine status: former use of tobacco/nicotine Quit status (tobacco/nicotine): has quit using Alcohol intake: current Alcohol intake frequency: holidays/special occasions only Substance/Drug Use: never Physical Exam 2 Const: COMMON NORMALS: no acute distress, patient oriented x3, no limitations and alert GENERAL APPEARANCE: cooperative and comfortable HENMT: HEAD & SCALP: normal to inspection FACE & SINUS: normal facial exam Eye: GENERAL EYE: appearance normal, both eyes and all related structures Neck/C-Spine: COMMON NORMALS: supple, no meningeal signs and no JVD Chest: COMMONS NORMALS: normal inspection of the chest Resp: COMMON NORMALS: normal respiratory effort, No use of accessory muscles and clear to auscultation bilaterally AUSCULTATION: clear to auscultation bilaterally Cardio: COMMON NORMALS: no JVD, regular rate, regular rhythm and No murmurs present (Cardio) RATE: regular rate RHYTHM: regular rhythm GI: COMMON NORMALS: Normal to inspection, nondistended, normoactive bowel sounds present and Soft to palpation INSPECTION: Yes normal to inspection AUSCULTATION: Yes normoactive bowel sounds PALPATION: Yes Soft to palpation and Yes Tenderness to palpation present (GI) Details: LUQ Back/Pelvis: COMMON NORMALS: thoracic and lumbar spine normal to inspection Extremity: COMMON NORMALS: normal to inspection Neuro: COMMON NORMALS: patient oriented x3, moves all extremities, no focal motor deficits and no sensory deficits noted SENSORIUM/ORIENTATION: Yes alert MENINGEAL SIGNS: Yes no meningeal signs Psych: COMMON NORMALS: mental status grossly normal, cooperative and normal affect Skin: COMMON NORMALS: no rashes or lesions noted and turgor normal GENERAL SKIN EXAM: no rashes or lesions noted and turgor normal Course 2 Vital Signs: Vital signs: Vital Signs Pulse Rate 88 06/27/24 15:31 Respiratory Rate 16 06/27/24 14:30 Blood Pressure 146/76 06/27/24 15:31 Pulse Oximetry 100 06/27/24 15:31 Oxygen Delivery Me thod Room Air 06/27/24 09:04 MDM - Abdominal Pain Medical Decision Making Patient presenting with epigastric/chest pain. He is convinced that this is heartburn and it may very well be. He does however have a recent history of 2 cardiac events requiring intervention. He has chronic dizziness which is being addressed by his PCP. My only concern regarding that is that he notes it is worse when he is having the episodes of chest discomfort. He has been on an increased dose of his GERD medication with no improvement. He is on a blood thinner but denies black stools. He did have some mild tenderness in the left upper quadrant but no rebound or guarding. EKG, troponin, chest x-ray pending for cardiac workup. Lipase pending. Will attempt to relieve the epigastric pain and burning chest pain with GI medications. Reassuring work up - discussed changing his GERD medication and follow up with his PCP Lab Data 06/27/24 09:30 06/27/24 09:30 Labs/Radiology: Radiology Impressions Chest X-Ray 06/27/24 09:20 IMPRESSION: No acute cardiopulmonary disease. Laboratory Results WBC 9.08 10^3/uL (3.29-11.43) 06/27/24 09:30 RBC 4.79 10^6/uL (3.85-5.65) 06/27/24 09:30 Hgb 14.80 g/dL (11.27-16.99) 06/27/24 09:30 Hct 44.1 % (37-53) 06/27/24 09:30 MCV 92.1 fl (82-101) 06/27/24 09:30 MCH 30.9 pg (27-33) 06/27/24 09:30 MCHC 33.6 g/dL (30-55) 06/27/24 09:30 RDW 13.7 % (12.1-15.1) 06/27/24 09:30 Plt Count 263 10^3/cmm (157-399) 06/27/24 09:30 MPV 10.5 fL (7.4-10.4) H 06/27/24 09:30 Neut % (Auto) 70.6 % 06/27/24 09:30 Lymph % (Auto) 14.1 % 06/27/24 09:30 [place] % (Auto) 9.7 % 06/27/24 09:30 Eos % (Auto) 4.6 % 06/27/24 09:30 Baso % (Auto) 0.7 % 06/27/24 09:30 Neut # (Auto) 6.41 10^3/uL (1.8-7.7) 06/27/24 09:30 Lymph # (Auto) 1.3 10^3/uL (0.8-4.8) 06/27/24 09:30 [place] # (Auto) 0.9 10^3/uL (0.2-0.9) 06/27/24 09:30 Eos # (Auto) 0.4 10^3/uL (0.0-0.8) 06/27/24 09:30 Baso # (Auto) 0.1 10^3/uL (0.0-0.1) 06/27/24 09:30 Nucleated RBC % (auto) 0 % 06/27/24 09:30 Nucleated RBCs # 0.0 /100WBC 06/27/24 09:30 Sodium 135 mmol/L (136-145) L 06/27/24 09:30 Potassium 4.5 mmol/L (3.5-5.1) 06/27/24 09:30 Chloride 99 mmol/L (98-107) 06/27/24 09:30 Carbon Dioxide 23 mmol/L (22-29) 06/27/24 09:30 Anion Gap 17.5 (5-19) 06/27/24 09:30 BUN 16 mg/dL (8-23) 06/27/24 09:30 Creatinine 0.9 mg/dL (0.7-1.2) 06/27/24 09:30 GFR Calculation Not Reportable 06/27/24 09:30 Glucose 206 mg/dL (65-115) H 06/27/24 09:30 Calculated Osmolality 287 mOsm/kg (285-295) 06/27/24 09:30 Calcium 9.6 mg/dL (8.5-10.5) 06/27/24 09:30 Total Bilirubin 0.5 mg/dL (0.15-1.2) 06/27/24 09:30 AST 16 U/L (0-40) 06/27/24 09:30 ALT 15 U/L (0-41) 06/27/24 09:30 Alkaline Phosphatase 88 U/L (40-130) 06/27/24 09:30 Troponin T Baseline 17 ng/L (0-15) H 06/27/24 09:30 Troponin T 120 Minute 15.35 ng/L (0-15) H 06/27/24 11:30 Delta Troponin T -1.65 ABS# (0-10) L 06/27/24 11:30 NT-Pro-B Natriuret Pep 164 pg/mL (0-450) 06/27/24 09:30 Total Protein 6.9 g/dL (6.6-8.7) 06/27/24 09:30 Albumin 4.4 g/dL (3.5-5.2) 06/27/24 09:30 Globulin 2.5 g/dL (1.3-4.6) 06/27/24 09:30 Lipase 22 U/L (13-60) 06/27/24 09:30 Urine Color Yellow (Yellow) 06/27/24 14:11 Urine Appearance Clear (CLEAR) 06/27/24 14:11 Urine pH 7.5 (5-7) 06/27/24 14:11 Ur Specific [place] 1.021 (1.005-1.030) 06/27/24 14:11 Urine Protein Negative (Negative) 06/27/24 14:11 Urine Glucose (UA) 3+ (Normal) H 06/27/24 14:11 Urine Ketones Negative (Negative) 06/27/24 14:11 Urine Blood Negative (Negative) 06/27/24 14:11 Urine Nitrate Negative (Negative) 06/27/24 14:11 Urine Bilirubin Negative (Negative) 06/27/24 14:11 Urine Urobilinogen 1.0 mg/dL (Negative) 06/27/24 14:11 Ur Leukocyte Esterase Negative (Negative) 06/27/24 14:11 Urine RBC 0-2 /hpf (0-2) 06/27/24 14:11 Urine WBC 0-5 /hpf (0-5) 06/27/24 14:11 Ur Squamous Epith Cells 0-5 /hpf (0-5) 06/27/24 14:11 Amorphous Sediment Not Reportable 06/27/24 14:11 Urine Bacteria None seen /hpf (NONE) 06/27/24 14:11 Hyaline Casts 0-4 /lpf H 06/27/24 14:11 All radiology interpretation(s) finalized by discharge Discharge Plan Discharge Patient Disposition: Home Clinical Impression: Abdominal pain, epigastric, Chronic gastroesophageal reflux disease Condition: Stable Prescriptions: New lansoprazole 30 mg capsule,delayed release(DR/EC) 30 mg PO BID Qty: 30 0RF sucralfate [Carafate] 1 gram tablet 1 g PO Q6H Qty: 30 0RF Discontinued pantoprazole 40 mg tablet,delayed release (DR/EC) 40 mg PO QAM No Action losartan 100 mg tablet 100 mg PO QAM montelukast [Singulair] 10 mg tablet 10 mg PO QPM atorvastatin 40 mg tablet 40 mg PO DAILY Qty: 90 4RF clopidogrel 75 mg tablet 75 mg PO DAILY Qty: 90 3RF carvedilol 3.125 mg tablet 3.125 mg PO BID Qty: 60 1RF Rx Instructions: must administer with a meal/food fluticasone propionate [Flonase Allergy Relief] 50 mcg/actuation [place],Suspension 2 spray intranasal DAILY insulin aspart U-100 [Novolog FlexPen U-100 Insulin] 100 unit/mL (3 mL) insulin pen 10 unit SUBCUT TID acetaminophen [Tylenol Extra Strength] 500 mg Tablet 1,000 mg PO Q6H PRN (Reason: pain) tamsulosin 0.4 mg capsule 0.4 mg PO QPM amlodipine 10 mg tablet 10 mg PO BEDTIME Lantus U-100 Insulin 100 unit/mL solution 50 unit SUBCUT DAILY@21 ipratropium bromide 21 mcg (0.03 %) spray,non-aerosol 2 spray INTRANASAL TID PRN (Reason: Allergy Symptoms) aspirin [Adult Low Dose Aspirin] 81 mg tablet,delayed release (DR/EC) 81 mg PO DAILY Qty: 30 0RF terbinafine HCl 1 % Cream 1 applic TOPICAL BID triamcinolone acetonide 0.1 % Ointment 1 applic TOPICAL BID PRN (Reason: CONTACT DERMATITIS) calcium polycarbophil 625 mg Tablet 1,250 mg PO DAILY docusate sodium [Colace] 100 mg Capsule 100 mg PO TID PRN (Reason: SOFTEN STOOLS) azelastine 137 mcg (0.1 %) [place],Non-Aerosol 1 spray INTRANASAL BID PRN (Reason: ALLERGIC RHINITIS) Rx Instructions: administer into each nostril scopolamine base [Transderm-Scop] 1 mg over 3 days Patch 3 Day 1 patch TRANSDERMAL Q3D PRN (Reason: Motion Sickness) loratadine 10 mg Tablet 10 mg PO DAILY multivitamin with iron Tablet 1 tab PO DAILY cholecalciferol (vitamin D3) [Vitamin D3] 50 mcg (2,000 unit) Tablet 50 mcg PO DAILY Probiotic 3 billion cell Capsule 3,000 mmu cells PO QPM Rx Instructions: administer with a meal Jardiance 25 mg Tablet 12.5 mg PO DAILY Discharge Orders: Discharge ED (Routine); Ordered 06/27/24 Ordered By: Lynsey Nugent Referrals: Michelle Burroughs APRN [Primary Care Provider] - Patient Instructions: Abdominal Pain (ED), Opioid Safety, Pain Management Coding Level of Care Code ED 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
[2024-06-27 12:02] LABS: Troponin 5 2HR 15.35 ng/L (0-15); Troponin 5 2HR Delta -1.65 ABS# (0-10)
[2024-06-27] MEDS: lidocaine 2% viscous 15 ML, aluminum-mag hydrox-simethicon 30 ML, sucralfate oral liq 1 GM PO (12:09)
[2024-06-27 14:19] LABS: Bilirubin Urine Negative (Negative); Blood Urine Negative (Negative); Glucose Urine UA 3+ (Normal); Ketones Urine Negative (Negative); Leukocyte Esterase Urine Negative (Negative); Nitrate Urine Negative (Negative); Protein Urine Negative (Negative); Specific Gravity, Urine 1.021 (1.005-1.030); Urine Appearance Clear (CLEAR); Urine Color Yellow (Yellow); pH Urine 7.5 (5-7)
[2024-06-27 14:22] LABS: Add Urine Microscopic? YES; Bacteria Urine None Seen /hpf; Hyaline Casts Urine 0-4 /lpf; RBC Urine 0-2 /hpf (0-2); Squamous Epithelial Cell Urine 0-5 /hpf (0-5); WBC Urine 0-5 /hpf (0-5)
== END 2024-06-27 15:32 | disposition home or self-care (01) ==
PROVIDERS: Emergency Provider Emergency Medicine; PCP Nurse Practitioner Family
DX: R10.13 Epigastric pain (principal); K21.9 Gastro-esophageal reflux disease without esophagitis; Z79.02 Long term (current) use of antithrombotics/antiplatelets; Z79.82 Long term (current) use of aspirin; Z87.891 Personal history of nicotine dependence; I25.10 Atherosclerotic heart disease of native coronary artery without angina pectoris; J44.9 Chronic obstructive pulmonary disease, unspecified; I10 Essential (primary) hypertension
CPT/HCPCS: 36415; 71045; 80053; 81001; 83690; 83880; 84484; 85025; 93005; 99285

== ENCOUNTER 2024-06-28 09:15 | Outpatient (RCR) | payer OTHER, SELFPAY | END 2024-07-27 23:59 | disposition home or self-care (01) | LOC: CR 09:15 | PROVIDERS: PCP Nurse Practitioner Family; Referring Provider Nurse Practitioner Family; Visit Provider Nurse Practitioner Family | DX: I25.2 Old myocardial infarction (principal) | CPT/HCPCS: 93798 ==

== ENCOUNTER → 2024-12-07 09:41 | Outpatient (BNVA) | payer OTHER, SELFPAY | PROVIDERS: PCP Nurse Practitioner Family; Visit Provider Internal Medicine Cardiovascular Disease | DX: I25.10 Atherosclerotic heart disease of native coronary artery without angina pectoris (principal); I10 Essential (primary) hypertension; I73.9 Peripheral vascular disease, unspecified; E11.40 Type 2 diabetes mellitus with diabetic neuropathy, unspecified; Z79.4 Long term (current) use of insulin; Z79.01 Long term (current) use of anticoagulants; Z79.82 Long term (current) use of aspirin; Z87.891 Personal history of nicotine dependence | CPT/HCPCS: 99214 ==

== ENCOUNTER 2025-01-22 18:27 | Observation (INO) | payer OTHER, SELFPAY ==
--- OUTSIDE RECORDS SUMMARY | 2024-02-02 03:30 | XMS_ITS | Encounter Summary ---
Author Name [facility] [facility] [place] [facility] [place] Address [address] [place] [address] Care Team Providers Care Evaporator Operator Name Role Phone LIUDMILA ANITHA Primary Care Provider Unavailabl e Insurance Providers: All historical and current Section Date Range: From patient's date of to the date document was created. This section includes the names of all active insurance providers for the patient. 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 ERS) MEDICARE SECONDARY (NO B EXC) MHBP Sep 26, 2017 [id number] [phone] RINARIFIDEL INIGUEZ PATIENT AETNA-MHBP POINT OF SERVICE MHBP Jul 28, 2017 [id number] [id number] [phone] SURRITTE, FIDEL PATIENT AETNA-MHBP POINT OF SERVICE MHBP Jul 28, 2017 [id number] SURRITTE, FIDEL PATIENT [place] ([id number]) PRESCRIPT ION [id number] Jul 28, 2023 [id number] SURRITTE, FIDEL PATIENT [place] ([id number]) PRESCRIPT ION MHBP Jul 28, 2017 [id number] SURRITTE, FIDEL PATIENT [place] ([id number]) PRESCRIPT ION MHBP Jul 28, 2017 [id number] [phone] SURRITTE, FIDEL PATIENT [place] ([id number]) RX PRESCRIPT ION MHBP Sep 26, 2017 [id number] [phone] SURRITTE, FIDEL PATIENT MEDICARE ([facility]) MEDICARE (M) PART A May 28, 2008 PART A [id number] SURRITTE, FIDEL PATIENT MEDICARE ([facility]) MEDICARE (M) PART A May 28, 2008 PART A [id number] [phone] [id number] SURRITTE, FIDEL PATIENT MEDICARE ([facility]) MEDICARE (M) PART A May 28, 2008 PART A [id number] [phone] SURRITTE, FIDEL PATIENT MEDICARE (WNR) MEDICARE (M) PART A May 28, 2008 PART A [id number] SURRITTE, FIDEL PATIENT MEDICARE ([facility]) MEDICARE () PART A May 28, 2008 PART A [id number] [phone] SURRITTE, FIDEL PATIENT MEDICARE ([facility]) MEDICARE (M) PART A May 28, 2008 PART A [id number] SURRITTE, FIDEL PATIENT MEDICARE PART D (WNR) MEDICARE (M) PART D Jul 28, 2023 PART D [id number] SURRITTE, FIDEL PATIENT Selected Encounter This section includes the information on record at [place] for the Encounter. Date/Time Encounter Type Encounter Description Reason Provider Source Feb 02, 2024 08:30 AM OFFICE O/P EST MOD 30 MIN PRIMARY CARE/MEDICINE ICD-10-CM Z00.00 Encntr for general adult medical exam w/o abnormal findings MICHELLE BURROUGHS Kaylen Encounter Template Text not used by [place] Assessments - Encounter Diagnoses This section includes the primary and secondary diagnoses documented for the Encounter. Date/Time Primary/Secondary Diagnosis Diagnosis Name Provider Source Feb 02, 2024 10:22 AM PRIMARY Encntr for general adult medical exam w/o abnormal findings MICHELLE BURROUGHS [facility] Feb 02, 2024 10:22 AM SECONDARY Essential (primary) hypertension MICHELLE BURROUGHS [place] [facility] Feb 02, 2024 10:22 AM SECONDARY Type 2 diabetes mellitus with diabetic neuropathy, unsp MICHELLE BURROUGHS [facility] Plan of Treatment: Future Appointments (+ 6 months) and Future Tests (+/- 45 days) The Plan of Treatment section includes future care activities for the patient from all [place] treatmentfacilities. This section includes future appointments and future orders which are active, pending or scheduled. Future Appointments This section includes appointments that were scheduled to occur 6 months from the date of the Encounter, up to a maximum of 20 appointments. The data comes from all [place] treatment facilities. Appointment Date/Time Appointment Type Appointme nt Facility Name Feb 09, 2024 09:45 AM AMBULATORY - MEDICINE [facility] Feb 12, 2024 08:45 AM [facility] [place] [facility] Feb 20, 2024 08:00 AM AMBULATORY - MEDICINE [facility] Mar 16, 2024 10:00 AM [place] [facility] Mar 28, 2024 08:00 AM AM[facility]ATORY - [facility]IC[facility] [place] [facility] Apr 09, 2024 09:30 AM AMBULATORY - MEDICINE [facility] Apr 26, 2024 11:00 AM AM[facility]ATORY - [facility]IC[facility] [place] [facility] Apr 27, 2024 08:45 AM AMBULATORY - MEDICINE [facility] Apr 28, 2024 11:30 AM AM[facility]ULATORY - [facility]IC[facility] [place] [facility] May 14, 2024 09:30 AM AMBULATORY - MEDICINE [facility] May 26, 2024 10:00 AM AM[facility] - [facility]IC[facility] [place] [facility] Jun 28, 2024 09:45 AM AMBULATORY - MEDICINE [facility] Jun 28, 2024 10:00 AM AMBULATORY - MEDICINE [facility] Aug 02, 2024 01:40 PM AMBULATORY MEDICINE [facility] Active, Pending, and Scheduled Orders This section includes a listing of several types of active, pending, and scheduled orders, including clinic medications orders, diagnostic test orders, procedure orders and consult orders; where the start date of the order is 45 days before the date of the Encounter or 45 days after the date of theEncounter. The data comes from all [place] treatment facilities. Test Date/Time Test Type Test Details Facility Name Feb 02, 2024 12:00 AM Laboratory - Chemi stry Order CBC BLOOD [facility] Feb 02, 2024 12:00 AM Laboratory - Chemi stry Order TSH (MA-PB) GOLD/RED SST SERUM [facility] Feb 02, 2024 12:00 AM Laboratory - Chemi stry Order URINE ALBUMIN PROFILE-ih (PB) URINE,RANDOM [facility] Lab Results: +/- 30 days of the encounter This section includes the Chemistry and Hematology Lab Results on record with [place] for the patient. Radiology Reports and Pathology Reports are provided separately, in subsequent sections. Lab Results This section contains the Chemistry/Hematology Results that were resulted 30 days before or 30 daysafter the date of the Encounter. Date/Time Source Result Type Result - Unit Interpretation Reference Range Specimen Type Comment Jan 26, 2024 08:03 AM [facility] CPK PROFILE (PB) PLASMA Specimen Type: PLASMA No comment entered. Ordering Provider: FRANKY BAKER Report Released Date/Time: Jan 09, 2024 05:51 AM Reporting Lab: [place] [facility] [address] [place] [address] Performing Lab: [place] [facility] [address] [place] [address] CPK 37 U/L 30-200 Jan 26, 2024 08:03 AM [facility] CHOLESTEROL PANEL (PB) PLASMA Specimen Type: P LASMA No comment entered. Ordering Provider: FRANKY BAKER Report Released Date/Time: Jan 09, 2024 05:51 AM Reporting Lab: [place] [facility] [address] [place] [address] Performing Lab: [place] [facility] [address] [place] [address] CHOLESTEROL 103 mg/dL 0-200 TRIGLYCERIDE 27 mg/dL 0-150 CALCULATED LDL 51.7 mg/dL HDL(New) 45.9 mg/dL H >40 HDL % OF TOTAL CHOLESTEROL (PB) 44.6 >25 Jan 26, 2024 08:03 AM [facility] DIRECT LDL (MA-PB) PLASMA Specimen Type: PLASM A No comment entered. Ordering Provider: FRANKY BAKER Report Released Date/Time: Jan 09, 2024 05:51 AM Reporting Lab: [place] [facility] [address] [place] [address] Performing Lab: [place] [facility] [address] [place] [address] DIRECT LDL 47.7 mg/dL 0-99.9 Jan 26, 2024 08:03 AM [facility] VITAMIN D, 25-HYDROXY SERUM Specimen Type: SE RUM No comment entered. Ordering Provider: FRANKY BAKER Report Released Date/Time: Jan 09, 2024 05:51 AM Reporting Lab: [place] [facility] [address] [place] [address] Performing Lab: [place] [facility] [address] [place] [address] VITAMIN D, 25-HYDROXY 61.4 ng/mL 30-96 Jan 26, 2024 08:03 AM [facility] FOLATE (PB) SERUM Specimen Typ e: SERUM No comment entered. Ordering Provider: FRANKY BAKER Report Released Date/Time: Jan 09, 2024 05:51 AM Reporting Lab: [place] [facility] [address] [place] [address] Performing Lab: [place] [facility] [address] [place] [address] FOLATE (PB) >20.0 ng/mL H 7-20 Jan 26, 2024 08:03 AM [facility] HGA1C BLOOD Specimen Type: BLOOD No comment entered. Ordering Provider: FRANKY BAKER Report Released Date/Time: Jan 09, 2024 05:51 AM Reporting Lab: [place] [facility] [address] [place] [address] Performing Lab: [place] [facility] [address] [place] [address] HGA1C 8.6 H 4.0-6.0 Jan 26, 2024 08:03 AM [facility] B12 SERUM Specimen Type: SERUM No comment entered. Ordering Provider: FRANKY BAKER Report Released Date/Time: Jan 09, 2024 05:51 AM Reporting Lab: [place] [facility] [address] [place] [address] Performing Lab: [place] [facility] [address] [place] [address] B12 567 pg/mL 213-816 Jan 26, 2024 08:03 AM [facility] COMPREHENSIVE METABOLIC PANEL PLASMA Specimen Type: PLASMA No comment entered. Ordering Provider: FRANKY BAKER Report Released Date/Time: Jan 09, 2024 05:51 AM Reporting Lab: [place] [facility] [address] [place] [address] Performing Lab: [place] [facility] [address] [place] [address] CREATININE 1.01 mg/dL 0.7-1.3 UREA NITROGEN 11 mg/dL 9-25 GLUCOSE 116 mg/dL H 72-99 SODIUM 133 meq/L L 136-145 POTASSIUM 4.1 meq/L 3.5-5 CHLORIDE 99 meq/L 98-107 CARBON DIOXIDE 27 meq/L 22-31 CALCIUM 9.4 mg/dL 8.4-10.4 PROTEIN 7.3 g/dL 6-8.6 ALBUMIN 4.2 g/dL 3.4-5 TOTAL BILIRUBIN 0.5 mg/dL 0.2-1.2 ALKALINE PHOSPHATASE 71 U/L 40-150 AST/SGOT 18 U/L 5-34 ALT/SGPT 16 U/L 8-40 EGFR (CKD-EPI 2020) 75 Vital Signs: All taken on the encounter date This section contains inpatient and outpatient Vital Signs collected on the date of the Encounter. Date/Time Temperature Pulse Blood Pressure Respiratory Rate SP02 Pain Height Weight Body Mass Index Source Feb 02, 2024 08:50 AM 162/74 [facility] [place] [facility] Feb 02, 2024 08:43 AM 98.2 62 158/62 20 98 0 198.4 29 [facility] [place] [facility] Social History: Smoking Status (Most current) and Tobacco Use (All prior to encounter date) This section includes the most current, and the historical, smoking and tobacco- related health factors from the [place] facility where the Encounter took place. Current Smoking Status This section includes the most current smoking, or tobacco-related health factor, from the [place] facility where the Encounter took place. Date/Time Current Smoking Status Comment Facil ity Feb 02, 2024 08:30 AM VA-TOBACCO FORMER USER [facility] Tobacco Use History This section includes a history of the smoking, or tobacco-related health factors, that were collected on or before the date of the Encounter. The data comes from the [place] facility where the Encounter took place. Date/Time Smoking Status/Tobacco Use Comment F acility Feb 02, 2024 08:30 AM VA-TOBACCO QUIT 15 YRS OR MORE [facility] Feb 17, 2023 10:30 AM VA-TOBACCO FORMER USER [facility] Feb 17, 2023 10:30 AM VA-TOBACCO QUIT 15 YRS OR MORE [facility] Feb 20, 2022 10:00 AM VA-TOBACCO FORMER USER [facility] Feb 20, 2022 10:00 AM VA-TOBACCO QUIT 15 YRS OR MORE [facility] Feb 17, 2019 10:44 AM VA-TOBACCO FORMER USER [facility] Feb 17, 2019 10:44 AM VA-TOBACCO QUIT 15 YRS OR MORE [facility] Feb 15, 2019 09:43 AM VA-TOBACCO FORMER USER [facility] Feb 15, 2019 09:43 AM VA-TOBACCO QUIT 15 YRS OR MORE [facility] Apr 08, 2018 01:31 PM QUIT TOBACCO >7 YEARS AGO [facility] Oct 28, 2017 08:48 AM QUIT TOBACCO >7 YEARS AGO [facility] May 28, 2017 11:33 AM QUIT TOBACCO >7 YEARS AGO [facility] May 17, 2008 08:50 AM QUIT TOBACCO >7 YEARS AGO [facility] Oct 30, 2007 08:52 AM QUIT TOBACCO >7 YEARS AGO [facility] Mar 09, 2007 08:13 AM QUIT TOBACCO >7 YEARS AGO [facility] [place] [facility] Jun 11, 2005 08:28 AM LIFETIME NON-TOBACCO USER [facility] Apr 08, 2005 10:40 AM CURRENT NON-TOBACC O USER-HX OF USE [facility] [place] [facility] Oct 05, 2004 11:10 AM CURRENT NON-TOBACC O USER-HX OF [place] [facility] Jun 29, 2004 08:36 AM CURRENT NON-TOBACC O USER-HX OF [place] [facility] Dec 30, 2003 11:01 AM CURRENT NON-TOBACC O USER-HX OF [place] [facility] Jul 15, 2003 11:11 AM CURRENT NON-TOBACC O USER-HX OF USE quit Jul 1998 [facility] Dec 27, 2002 12:57 PM CURRENT NON-TOBACC O USER-HX OF USE [facility] Mar 31, 2002 10:19 AM CURRENT NON-TOBACC O USER-HX OF [place] [facility] Sep 15, 2001 01:22 PM CURRENT NON-TOBACC O USER-HX OF [place] [facility] Feb 16, 2001 03:11 PM CURRENT NON-TOBACC O USER-HX OF USE quit 2 yrs ago, 1 pk day [facility] Encounter Notes: All associated encounter notes This section contains the clinical notes associated to the Encounter. Date/Time Encounter Note(s) Provider Source Feb 18, 2024 09:22 AM PHYSICIAN LETTERS: LOCAL TITLE: TEST RESULT GENERAL LETTER [facility] STANDARD TITLE: PHYSICIAN LETTERS DATE OF NOTE: FEB 18, 2024@09:22 ENTRY DATE: FEB 18, 2024@09:22:19 AUTHOR: MICHELLE BURROUGHS COSIGNER: URGENCY: STATUS: COMPLETED [facility] [address] [place] [address] FEB 18, 2024 FIDEL ALCAZAR [address] [facility] [address] [place], [place] [address] Dear Fidel Alcazar, I would like to update you on your recent test results. LIPID PROFILE - High cholesterol and triglycerides (lipids) are risk factors for heart disease. Your cholesterol should fall between 140 and 200, and your triglycerides levels should be less than or equal to 150. HDL is the good cholesterol and should ideally be greater than 40. LDL is the bad cholesterol and optimal levels should be less than 100 (near optimal is between 100 and 129). TRIGLYCERIDE 27 mg/dL 01/26/2024 08:03 CHOLESTEROL 103 mg/dL 01/26/2024 08:03 HDL(New) 45.9 H mg/dL 01/26/2024 08:03 DIRECT LDL 47.7 mg/dL 01/26/2024 08:03 CALCULATED LDL 51.7 mg/dL 01/26/2024 08:03 HDL % OF TOTAL CHOLESTEROL (PB) 44.6 % 01/26/2024 08:03 DIRECT LDL 47.7 mg/dL 01/26/2024 08:03 These readings are within normal limits. GLUCOSE - Your blood sugar or glucose level result GLUCOSE GLUCOSE 116 H mg/dL 01/26/2024 08:03 These readings are within normal limits. HEMOGLOBIN A1C - Gives us information about your diabetes (sugar or glucose) control over the past 3 months. Your target is to keep your A1C below 7 %. HGA1C 8.6 H % 01/26/2024 08:03 These results are abnormal. increased 8.3 for last time CBC - A complete blood count (CBC) gives important information about the kinds and numbers of cells in the blood, especially red blood cells, white blood cells, and platelets. HGB 13.1 g/dL 02/10/2023 07:55 HEMATOCRIT 37.9 % L (02/10/23 07:55) PLT 275 10*3/uL 02/10/2023 07:55 WHITE BLOOD COUNT 8.5 10*3/uL (02/10/23 07:55) These readings are within normal limits. B12 - Helps maintain healthy nerve cells, red blood cells, and is also needed to make DNA. B12 567 pg/mL 01/26/2024 08:03 These readings are within normal limits. CHEM 7 - This is important information about the current status of your kidneys, liver, and electrolyte and acid/base balance as well as of your blood sugar and blood proteins. SODIUM 133 L mEq/L 01/26/2024 08:03 POTASSIUM 4.1 mEq/L 01/26/2024 08:03 CHLORIDE 99 mEq/L 01/26/2024 08:03 UREA NITROGEN 11 mg/dL 01/26/2024 08:03 CREATININE 1.01 mg/dL 01/26/2024 08:03 CALCIUM 9.4 mg/dL 01/26/2024 08:03 CARBON DIOXIDE 27 mEq/L 01/26/2024 08:03 GLUCOSE 116 H mg/dL 01/26/2024 08:03 EGFR (CKD-EPI 2020) 75 01/26/2024 08:03 These readings are within normal limits. LIVER FUNCTION PANEL - These are tests for liver function: PROTEIN 7.3 g/dL 01/26/2024 08:03 ALBUMIN 4.2 g/dL 01/26/2024 08:03 TOTAL BILIRUBIN 0.5 mg/dL 01/26/2024 08:03 ALKALINE PHOSPHATASE 71 U/L 01/26/2024 08:03 AST/SGOT 18 U/L 01/26/2024 08:03 ALT/SGPT 16 U/L 01/26/2024 08:03 These readings are within normal limits. TSH - Thyroid-stimulating hormone (also known as TSH or thyrotropin) is a peptide hormone synthesized and secreted by thyrotrope cells in the anterior pituitary gland, which regulates the endocrine function of the thyroid gland. TSH TSH 2.585 uIU/mL 02/10/2023 07:55 These readings are within normal limits. VITAMIN D - Helps promote the proper utilization of calcium and phosphorus, thereby producing proper bone maintenance. VITAMIN D, 25-HYDROXY 61.4 ng/mL 01/26/2024 08:03 These readings are within normal limits. URINALYSIS - A urinalysis (or UA ) is an array of tests performed on urine and one of the most common methods of medical diagnosis. URINALYSIS URINE COLOR Yellow 02/10/2023 07:55 APPEARANCE Clear 02/10/2023 07:55 SPECIFIC GRAVITY 1.010 02/10/2023 07:55 U.PH 7.0 02/10/2023 07:55 U.GLUCOSE 150 H mg/dL 02/10/2023 07:55 U.KETONES NEGATIVE mg/dL 02/10/2023 07:55 U.BILIRUBIN NEGATIVE mg/dL 02/10/2023 07:55 U.BLOOD NEGATIVE mg/dL 02/10/2023 07:55 U.NITRITE NEGATIVE mg/dL 02/10/2023 07:55 U.LEUK.EST. NEGATIVE 02/10/2023 07:55 UROBILINOGEN NORMAL mg/dL 02/10/2023 07:55 These readings are within normal limits. PLAN Please continue your treatment as we discussed during your visit. If you have any questions please call your manager case. I look forward to seeing you at your next clinic appointment. Thank you for choosing the [facility] for your healthcare. Discussed with the Dr. 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 05/14/2024 09:30 [facility] PA[facility] PHARM Sincerely, Michelle Burroughs, NOÉ, MSN, Randall Golden [facility] FIDEL ALCA[facility] Feb 09, 2024 10:29 AM PRIMARY CARE PROGR ESS NOTE: LOCAL TITLE: PRIMARY CARE CLINIC PROGRESS NOTE PB STANDARD TITLE: PRIMARY CARE PROGRESS NOTE DATE OF NOTE: FEB 09, 2024@10:29 ENTRY DATE: FEB 09, 2024@10:29:54 AUTHOR: MICHELLE BURROUGHS COSIGNER: URGENCY: STATUS: COMPLETED Date & Time:Jan@10:30 This is a 78 year old MALE Allergies: Patient has answered NKA CC: f/u blood pressure HPI: [place] presented today as scheduled appointment with hypotension, only one or two readings that were low but concerned because he went to the hospital in December for the same thing. Currently has no ketones in urine will monitor and instructed to come to clinic if any more low pressures. Temperature: 98.1 F [36.7 C] (02/09/2024 09:47) Respiratory Rate: 18 (02/09/2024 09:47) Pulse Rate: 60 (02/09/2024 09:47) Blood Pressure: 148/50 (02/09/2024 09:47) HT: 70 in [177.8 cm] (03/30/2019 14:05) WT: 199.1 lb. [90.31 kg] (02/09/2024 09:47) BMI: 28.6 97% (02/09/2024 09:47) REVIEW OF SYSTEMS: HEENT: No headache. No blurry vision, vision loss, eye pain, red eyes, or foreign body. No runny nose, congestion, or nose bleed. No hearing loss, ringing in the ears, or vertigo. No sore throat or dental pain. RESPIRATORY: No cough, SOA, wheezing, or sputum production. CARDIOVASCULAR: No chest pain, palpitations, tachycardia, PND, or orthopnea. GI: No abdominal pain, nausea, vomiting, diarrhea, constipation, melena, or hematochezia. : No dysuria, hematuria, urinary frequency, weak stream, or post-void dribbling. MUSCULOSKELETAL: No muscle or joint pain. SKIN: No rash, lesions, or infection PSYCH: No depression and anxious at this time. Not suicidal. 1) Diabetes mellitus type 2 (SNOMED CT 40308624) 2) GERD - Gastro-esophageal reflux disease 3) Essential hypertension (SNOMED CT 84603859) 4) Chronic obstructive lung disease (SNOMED CT 74613779) 5) Sleep apnea syndrome 6) Allergic rhinitis (SNOMED CT 56221695) 7) HL - Hearing loss 8) Carotid artery stenosis 9) Hyponatremia 10) Obstructive sleep apnea (SNOMED CT 10005422) 11) Cerebral ischemia (SNOMED CT 486586124) 12) HLD - Hyperlipidemia 13) History of cholecystectomy 14) PVD - peripheral vascular disease 15) Benign prostatic hypertrophy with outflow obstruction 16) Vertigo 17) Cerebral infarction Active Outpatient Medications (including Supplies): Active Outpatient Medications Status 1) AMLODIPINE BESYLATE 10MG TAB TAKE ONE TABLET BY MOUTH ACTIVE (S) ONCE A DAY FOR HEART/BLOOD PRESSURE 2) ASPIRIN 81MG EC TAB TAKE ONE TABLET BY MOUTH ONCE A ACTIVE (S) DAY FOR HEART OR CIRCULATION. TAKE WITH FOOD. 3) ATORVASTATIN CALCIUM 40MG TAB TAKE ONE TABLET BY ACTIVE (S) MOUTH ONCE A DAY 4) AZELASTINE 137MCG/SPRAY 200D NASAL INHL SPRAY 1 PUFF ACTIVE (S) IN EACH NOSTRIL TWICE DAILY NEEDED FOR ALLERGIC RHINITIS. *PRIME BEFORE USE* 5) CALCIUM POLYCARBOPHIL 625MG TAB TAKE TWO TABLETS BY ACTIVE (S) MOUTH ONCE A DAY FOR FIBER 6) DOCUSATE NA 100MG CAP TAKE ONE CAPSULE BY MOUTH THREE ACTIVE (S) TIMES A DAY NEEDED TO SOFTEN STOOL. HOLD FOR LOOSE STOOL/DIARRHEA. 7) EMPAGLIFLOZIN 25MG TAB TAKE ONE-HALF TABLET BY MOUTH ACTIVE (S) ONCE A DAY FOR DIABETES 8) FLUTICASONE PROP 50MCG 120D NASAL INHL INSTILL 2 ACTIVE (S) SPRAYS IN NOSTRIL(S) ONCE A DAY FOR RHINITIS (MUST BE USED DIRECTED FOR MINIMUM OF 21 DAYS TO PROVIDE ADEQUATE BENEFITS) 9) GLUCOSE SENSOR FREESTYLE BRADLEY 2 USE SENSOR EVERY ACTIVE (S) 2 WEEKS FOR BLOOD SUGAR MONITORING CHANGE SENSOR/SITE EVERY 14 DAYS. TO REPLACE SENSOR FOR ANY REASON OR FOR TECHNICAL HELP PLEASE CALL [employer] HELP DESK: -SPECIFIC PHONE NUMBER: [phone]). 10) INSULIN SYRINGE 1ML 30G 12MM USE 1 SYRINGE UNDER THE ACTIVE (S) SKIN ONCE A DAY FOR USE WITH INSULIN TO CONTROL BLOOD SUGAR. 11) INSULIN,ASPART(EQV-NOVLG)100 UN/ML FLXPEN INJECT 10 ACTIVE (S) UNITS UNDER THE SKIN THREE TIMES A DAY BEFORE MEALS FOR BLOOD SUGAR CONTROL. ADMINISTER 10 MINUTES BEFORE FOOD DIRECTED. REFRIGERATE UN-OPENED PENS. DISCARD CARTRIDGE 28 DAYS AFTER OPENING. WILL REPLACE INSULIN REGULAR 12) INSULIN,GLARGINE-YFGN 100UNIT/ML INJ INJECT 50 UNITS ACTIVE (S) UNDER THE SKIN ONCE A DAY FOR DIABETES (AT SAME TIME EACH DAY) - (DISCARD ANY UNUSED PORTION 28 DAYS AFTER OPENING) 13) IPRATROPIUM BR 0.03% NASAL SPRAY USE 2 SPRAYS INTO ACTIVE (S) EACH NOSTRIL THREE TIMES A DAY NEEDED FOR ALLERGIES/NASAL SYMPTOMS. 14) LORATADINE 10MG TAB TAKE ONE TABLET BY MOUTH ONCE A ACTIVE (S) DAY FOR ALLERGIC RHINITIS ON EMPTY STOMACH 15) LOSARTAN 100MG TAB TAKE ONE TABLET BY MOUTH ONCE A ACTIVE (S) DAY TO LOWER BLOOD PRESSURE 16) METOPROLOL TARTRATE 50MG TAB TAKE ONE-HALF TABLET BY ACTIVE (S) MOUTH TWICE A DAY FOR HEART/BLOOD PRESSURE. TAKE WITH OR IMMEDIATELY FOLLOWING FOOD. 17) MONTELUKAST NA 10MG TAB TAKE ONE TABLET BY MOUTH AT ACTIVE (S) BEDTIME FOR BREATHING 18) NEEDLE,PEN 31G,5MM USE 1 NEEDLE UNDER THE SKIN THREE ACTIVE (S) TIMES A DAY BEFORE MEALS WITH NOVOLOG FLEXPEN 19) PANTOPRAZOLE NA 40MG EC TAB TAKE ONE TABLET BY MOUTH ACTIVE (S) EVERY MORNING BEFORE A MEAL TO LOWER STOMACH ACID - TAKE 30 MINUTES BEFORE MEAL(S) 20) PREGABALIN 75MG ORAL CAP TAKE ONE CAPSULE BY MOUTH ACTIVE (S) EVERY 12 HOURS *MAY CAUSE DROWSINESS* 21) TAMSULOSIN HCL 0.4MG CAP TAKE ONE CAPSULE BY MOUTH ACTIVE (S) EVERY EVENING APPROXIMATELY 30 MINUTES AFTER THE SAME MEAL EACH DAY (FOR PROSTATE) 22) TERBINAFINE HCL 1% CREAM APPLY LIGHTLY TO AFFECTED ACTIVE AREA(S) TWICE A DAY FOR FUNGAL SKIN INFECTION 23) TRIAMCINOLONE ACETONIDE 0.1% OINT APPLY LIGHTLY TO ACTIVE AFFECTED AREA(S) TWICE A DAY FOR CONTACT DERMATITIS TO AREAS OF ITCHY RASH NEEDED. FOR EXTERNAL USE ONLY. 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 Discussed with patient that in the event of community imaging / testing being ordered in the future, once the imaging / testing has been completed, please notify PACT of completion at outside facility if not called with results within 1 week by a IN PACT member; this is due to intermittent lapses in notification of imaging completion within CPRS. All questions answered; agrees to plan of care. Follow up as listed above, annually, and as needed. Keep all appointments. Medications Reconciled. See AVS given to [place]. Time spent 30 minutes. Michelle BREWER /felisha/ NOÉ Smith, MSN, Randall Golden [facility] Signed: 02/10/2024 11:25 MICHELLE BURROUGHS [facility] CB Feb 02, 2024 09:10 AM PRIMARY CARE PROGR ESS NOTE: LOCAL TITLE: PRIMARY CARE CLINIC PROGRESS NOTE PB STANDARD TITLE: PRIMARY CARE PROGRESS NOTE DATE OF NOTE: FEB 02, 2024@09:10 ENTRY DATE: FEB 02, 2024@09:10:17 AUTHOR: MICHELLE BURROUGHS EXP COSIGNER: URGENCY: STATUS: COMPLETED This is a 78 year old MALE DS - Disabilities Eligibility: SERVICE CONNECTED 50% to 100% VERIFIED Total S/C %: 78 PARALYSIS OF MEDIAN NERVE 10% S/C PARALYSIS OF SCIATIC NERVE 10% S/C DEFORMITY OF THE PENIS 0% S/C PARALYSIS OF MEDIAN NERVE 10% S/C DIABETES MELLITUS 60% S/C PARALYSIS OF SCIATIC NERVE 10% S/C Chief Complaint (Reason for today's visit): Here today for scheduled annual appointment History of Present Illness (Subjective): presenting today for scheduled appointment for annual. Continues several weeks ago for physical therapy and cardiac rehab. [place] in appointment without . Request different communications field technician will place new consult for podiatry. ivy mccarthy in visit bradley denies pain or discomfort. Denies other needs at this time Denies other complaints except headache. Patient states headache is not associated. Denies visual changes, or lightheadedness. Instructed to go to the ER headaches or any other concerns. Does state that is currently eefr-ngd-mnwaeoe allergy medicine ordered we will change Claritin and start zyrtec Personal History: Denies changes Family History: Denies changes Surgical History: denies changes Allergies: Patient has answered NKA REVIEW OF SYSTEMS: HEENT: No visual or auditory symptoms. RESPIRATORY: No shortness of breath, cough or sputum. CARDIOVASCULAR: No chest pain or palpitation. GI: No abdominal pain, nausea, vomiting or bowel changes. MUSCULOSKELETAL: No muscle aches or pains., Other: headache SKIN: No new rashes, no unhealing lesions, no moles. : No urinary symptoms. PSYCH: Denies being depressed or anxious. VITALS: Temperature: 98.2 F [36.8 C] (02/02/2024 08:43) Respiratory Rate: 20 (02/02/2024 08:43) Pulse Rate: 62 (02/02/2024 08:43) Blood Pressure: 162/74 (02/02/2024 08:50) HT: 70 in [177.8 cm] (03/30/2019 14:05) WT: 198.4 lb. [89.99 kg] (02/02/2024 08:43) BMI: 28.5 98% (02/02/2024 08:43) PHYSICAL EXAM: General: NAD noted, A&Ox3, pleasant, appears stated age HEENT: NCAT, TM's clear, nares and oropharynx clear Neck: Supple with normal active ROM, without any lymphadenopathy Heart: RRR, no murmur, clicks, or rub Resp: Lungs CTA bilaterally, respirations even and unlabored Abdomen: Soft, non-distended, non-tender Ext: No clubbing, cyanosis, edema or obvious deformity Neuro: Grossly intact Psych: Affect normal, answers questions appropriately throughout visit DIAGNOSTIC STUDIES: Labs Performed/Reviewed at Today's Visit: None Radiology/Imaging Performed/Reviewed at Today's Visit: None Reason for studies: Not Applicable On the following Active Medications: Active Outpatient Medications (including Supplies): Active Outpatient Medications Status 1) AMLODIPINE BESYLATE 10MG TAB TAKE ONE TABLET BY MOUTH ACTIVE ONCE A DAY FOR HEART/BLOOD PRESSURE 2) ASPIRIN 81MG EC TAB TAKE ONE TABLET BY MOUTH ONCE A ACTIVE (S) DAY FOR HEART OR CIRCULATION. TAKE WITH FOOD. 3) ATORVASTATIN CALCIUM 40MG TAB TAKE ONE TABLET BY ACTIVE (S) MOUTH ONCE A DAY 4) AZELASTINE 137MCG/SPRAY 200D NASAL INHL SPRAY 1 PUFF ACTIVE (S) IN EACH NOSTRIL TWICE DAILY NEEDED FOR ALLERGIC RHINITIS. *PRIME BEFORE USE* 5) CALCIUM POLYCARBOPHIL 625MG TAB TAKE TWO TABLETS BY ACTIVE (S) MOUTH ONCE A DAY FOR FIBER 6) DOCUSATE NA 100MG CAP TAKE ONE CAPSULE BY MOUTH THREE ACTIVE (S) TIMES A DAY NEEDED TO SOFTEN STOOL. HOLD FOR LOOSE STOOL/DIARRHEA. 7) FLUTICASONE PROP 50MCG 120D NASAL INHL INSTILL 2 ACTIVE (S) SPRAYS IN NOSTRIL(S) ONCE A DAY FOR RHINITIS (MUST BE USED DIRECTED FOR MINIMUM OF 21 DAYS TO PROVIDE ADEQUATE BENEFITS) 8) GLUCOSE SENSOR FREESTYLE BRADLEY 2 USE SENSOR EVERY ACTIVE (S) 2 WEEKS FOR BLOOD SUGAR MONITORING CHANGE SENSOR/SITE EVERY 14 DAYS. TO REPLACE SENSOR FOR ANY REASON OR FOR TECHNICAL HELP PLEASE CALL [employer] HEL[employer] DESK: -SPECIFIC PHONE NUMBER: ([phone]). 9) INSULIN SYRINGE 1ML 30G 12MM USE 1 SYRINGE UNDER THE ACTIVE (S) SKIN ONCE A DAY FOR USE WITH INSULIN TO CONTROL BLOOD SUGAR. 10) INSULIN,ASPART(EQV-NOVLG)100 UN/ML FLXPEN INJECT 10 ACTIVE (S) UNITS UNDER THE SKIN THREE TIMES A DAY BEFORE MEALS FOR BLOOD SUGAR CONTROL. ADMINISTER 10 MINUTES BEFORE FOOD DIRECTED. REFRIGERATE UN-OPENED PENS. DISCARD CARTRIDGE 28 DAYS AFTER OPENING. WILL REPLACE INSULIN REGULAR 11) INSULIN,GLARGINE-YFGN 100UNIT/ML INJ INJECT 50 UNITS ACTIVE (S) UNDER THE SKIN ONCE A DAY FOR DIABETES (AT SAME TIME EACH DAY) - (DISCARD ANY UNUSED PORTION 28 DAYS AFTER OPENING) 12) IPRATROPIUM BR 0.03% NASAL SPRAY USE 2 SPRAYS INTO ACTIVE (S) EACH NOSTRIL THREE TIMES A DAY NEEDED FOR ALLERGIES/NASAL SYMPTOMS. 13) LORATADINE 10MG TAB TAKE ONE TABLET BY MOUTH ONCE A ACTIVE (S) DAY FOR ALLERGIC RHINITIS ON EMPTY STOMACH 14) LOSARTAN 100MG TAB TAKE ONE TABLET BY MOUTH ONCE A ACTIVE (S) DAY TO LOWER BLOOD PRESSURE 15) METOPROLOL TARTRATE 50MG TAB TAKE ONE-HALF TABLET BY ACTIVE (S) MOUTH TWICE A DAY FOR HEART/BLOOD PRESSURE. TAKE WITH OR IMMEDIATELY FOLLOWING FOOD. 16) MONTELUKAST NA 10MG TAB TAKE ONE TABLET BY MOUTH AT ACTIVE (S) BEDTIME FOR BREATHING 17) NEEDLE,PEN 31G,5MM USE 1 NEEDLE UNDER THE SKIN THREE ACTIVE (S) TIMES A DAY BEFORE MEALS WITH NOVOLOG FLEXPEN 18) PANTOPRAZOLE NA 40MG EC TAB TAKE ONE TABLET BY MOUTH ACTIVE (S) EVERY MORNING BEFORE A MEAL TO LOWER STOMACH ACID - TAKE 30 MINUTES BEFORE MEAL(S) 19) PREGABALIN 75MG ORAL CAP TAKE ONE CAPSULE BY MOUTH ACTIVE (S) EVERY 12 HOURS *MAY CAUSE DROWSINESS* 20) TAMSULOSIN HCL 0.4MG CAP TAKE ONE CAPSULE BY MOUTH ACTIVE EVERY EVENING APPROXIMATELY 30 MINUTES AFTER THE SAME MEAL EACH DAY (FOR PROSTATE) 21) TERBINAFINE HCL 1% CREAM APPLY LIGHTLY TO AFFECTED ACTIVE AREA(S) TWICE A DAY FOR FUNGAL SKIN INFECTION 22) TRIAMCINOLONE ACETONIDE 0.1% OINT APPLY LIGHTLY TO ACTIVE AFFECTED AREA(S) TWICE A DAY FOR CONTACT DERMATITIS TO AREAS OF ITCHY RASH NEEDED. FOR EXTERNAL USE ONLY. 1) Diabetes mellitus type 2 (SNOMED CT 79048435) 2) GERD - Gastro-esophageal reflux disease 3) Essential hypertension (SNOMED CT 82488435) 4) Chronic obstructive lung disease (SNOMED CT 95006956) 5) Sleep apnea syndrome 6) Allergic rhinitis (SNOMED CT 22692332) 7) HL - Hearing loss 8) Carotid artery stenosis 9) Hyponatremia 10) Obstructive sleep apnea (SNOMED CT 94409687) 11) Cerebral ischemia (SNOMED CT 467190457) 12) HLD - Hyperlipidemia 13) History of cholecystectomy 14) PVD - peripheral vascular disease 15) Benign prostatic hypertrophy with outflow obstruction 16) Vertigo 17) Cerebral infarction ===== MEDICATION RECONCILIATION: ACTIVE/ OUTPATIENT MEDICATIONS: MRT1 - Med Reconciliation INCLUDED IN THIS LIST: Alphabetical list of active outpatient prescriptions dispensed from this [place] (local) and dispensed from another [place] or [facility] facility (remote) as well as inpatient orders (local pending and active), local clinic medications, locally documented non-VA medications, and local prescriptions that have or been discontinued in the past 90 days. Non-VA Meds Last Documented On: Nov 13, 2017 NOTE The display of VA prescriptions dispensed from another [place] or [facility] facility (remote) is limited to active outpatient prescription entries matched to National Drug File at the originating site and may not include some items such as investigational drugs, compounds, etc. NOT INCLUDED IN THIS LIST: Medications self-entered by the patient into personal health records (i.e. [employer]) are NOT included in this list. Non-VA medications documented outside this [place], remote inpatient orders (regardless of status) and remote clinic medications are NOT included in this list. The patient and provider must always discuss medications the patient is taking, regardless of where the medication was dispensed or obtained. OUTPT AMLODIPINE BESYLATE 10MG TAB (Status = Active) TAKE ONE TABLET BY MOUTH ONCE A DAY FOR HEART/BLOOD PRESSURE Rx# [id number] Last Released: 11/12/23 Qty/Days' Supply: 90/ Rx Expiration Date: 09/04/24 Refills Remainin OUTPT ASPIRIN 81MG EC TAB (Status = Active/Suspended) TAKE ONE TABLET BY MOUTH ONCE A DAY FOR HEART OR CIRCULATION. TAKE WITH FOOD. Rx# [id number] Last Released: 12/26/23 Qty/Days' Supply: 120/ Rx Expiration Date: 09/04/24 Refills Remainin OUTPT ATORVASTATIN CALCIUM 40MG TAB (Status = Active/Suspended) TAKE ONE TABLET BY MOUTH ONCE A DAY Rx# [id number] Last Released: 12/31/23 Qty/Days' Supply: 90 Rx Expiration Date: 12/29/24 Refills Remainin OUTPT AZELASTINE 137MCG/SPRAY 200D NASAL INHL (Status = Active/Suspended) SPRAY 1 PUFF IN EACH NOSTRIL TWICE DAILY NEEDED FOR ALLERGIC RHINITIS. *PRIME BEFORE USE* Rx# [id number] Last Released: 01/13/24 Qty/Days' Supply: 08/26 Rx Expiration Date: 09/04/24 Refills Remainin OUTPT CALCIUM POLYCARBOPHIL 625MG TAB (Status = Active/Suspended) TAKE TWO TABLETS BY MOUTH ONCE A DAY FOR FIBER Rx# [id number] Last Released: 12/03/23 Qty/Days' Supply: 180/ Rx Expiration Date: 09/04/24 Refills Remainin OUTPT DOCUSATE NA 100MG CAP (Status = Active/Suspended) TAKE ONE CAPSULE BY MOUTH THREE TIMES A DAY NEEDED TO SOFTEN STOOL. HOLD FOR LOOSE STOOL/DIARRHEA. Rx# [id number] Last Released: 01/12/24 Qty/Days' Supply: 300/ Rx Expiration Date: 05/19/24 Refills Remainin OUTPT FLUTICASONE PROP 50MCG 120D NASAL INHL (Status = Active/Suspended) INSTILL 2 SPRAYS IN NOSTRIL(S) ONCE A DAY FOR RHINITIS (MUST BE USED DIRECTED FOR MINIMUM OF 21 DAYS TO PROVIDE ADEQUATE BENEFITS) Rx# [id number] Last Released: 12/26/23 Qty/Days' Supply: Rx Expiration Date: 09/04/24 Refills Remainin Indication: FOR RHINITIS OUTPT INSULIN,ASPART(EQV-NOVLG)100 UN/ML FLXPEN (Status = Active/Suspended) INJECT 10 UNITS UNDER THE SKIN THREE TIMES A DAY BEFORE MEALS FOR BLOOD SUGAR CONTROL. ADMINISTER 10 MINUTES BEFORE FOOD DIRECTED. REFRIGERATE UN-OPENED PENS. DISCARD CARTRIDGE 28 DAYS AFTER OPENING. WILL REPLACE INSULIN REGULAR Rx# [id number] Last Released: 01/19/24 Qty/Days' Supply: Rx Expiration Date: 09/04/24 Refills Remainin OUTPT INSULIN,GLARGINE-YFGN 100UNIT/ML INJ (Status = Active/Suspended) INJECT 50 UNITS UNDER THE SKIN ONCE A DAY FOR DIABETES (AT SAME TIME EACH DAY) - (DISCARD ANY UNUSED PORTION 28 DAYS AFTER OPENING) Rx# [id number] Last Released: 11/11/23 Qty/Days' Supply: Rx Expiration Date: 09/04/24 Refills Remainin Indication: FOR DIABETES OUTPT IPRATROPIUM BR 0.03% NASAL SPRAY (Status = Active/Suspended) USE 2 SPRAYS INTO EACH NOSTRIL THREE TIMES A DAY NEEDED FOR ALLERGIES/NASAL SYMPTOMS. Rx# [id number] Last Released: 01/19/24 Qty/Days' Supply: Rx Expiration Date: 09/04/24 Refills Remainin OUTPT LORATADINE 10MG TAB (Status = Active/Suspended) TAKE ONE TABLET BY MOUTH ONCE A DAY FOR ALLERGIC RHINITIS ON EMPTY STOMACH Rx# [id number] Last Released: 12/26/23 Qty/Days' Supply: Rx Expiration Date: 09/04/24 Refills Remainin Indication: FOR ALLERGIC RHINITIS OUTPT LOSARTAN 100MG TAB (Status = Active/Suspended) TAKE ONE TABLET BY MOUTH ONCE A DAY TO LOWER BLOOD PRESSURE Rx# [id number] Last Released: 12/02/23 Qty/Days' Supply: Rx Expiration Date: 09/04/24 Refills Remainin OUTPT METOPROLOL TARTRATE 50MG TAB (Status = Active/Suspended) TAKE ONE-HALF TABLET BY MOUTH TWICE A DAY FOR HEART/BLOOD PRESSURE. TAKE WITH OR IMMEDIATELY FOLLOWING FOOD. Rx# [id number] Last Released: 12/23/23 Qty/Days' Supply: Rx Expiration Date: 09/04/24 Refills Remainin OUTPT MONTELUKAST NA 10MG TAB (Status = Active/Suspended) TAKE ONE TABLET BY MOUTH AT BEDTIME FOR BREATHING Rx# [id number] Last Released: 12/09/23 Qty/Days' Supply: Rx Expiration Date: 09/04/24 Refills Remainin Indication: FOR BREATHING OUTPT PANTOPRAZOLE NA 40MG EC TAB (Status = Active/Suspended) TAKE ONE TABLET BY MOUTH EVERY MORNING BEFORE A MEAL TO LOWER STOMACH ACID - TAKE 30 MINUTES BEFORE MEAL(S) Rx# [id number] Last Released: 12/24/23 Qty/Days' Supply: Rx Expiration Date: 09/04/24 Refills Remainin OUTPT PREGABALIN 75MG ORAL CAP (Status = Active/Suspended) TAKE ONE CAPSULE BY MOUTH EVERY 12 HOURS *MAY CAUSE DROWSINESS* Rx# [id number] Last Released: 01/21/24 Qty/Days' Supply: Rx Expiration Date: 04/09/24 Refills Remainin OUTPT SIMVASTATIN 20MG TAB (Status = Discontinued) TAKE ONE-HALF TABLET BY MOUTH EVERY EVENING TO LOWER CHOLESTEROL (REPORT ANY MUSCLE PAIN OR WEAKNESS) THIS TABLET IS TO BE CUT IN HALF FOR YOUR DOSE Rx# [id number] Last Released: 11/13/23 Qty/Days' Supply: Rx Expiration Date: 09/04/24 Refills Remainin OUTPT TAMSULOSIN HCL 0.4MG CAP (Status = Discontinued) TAKE ONE CAPSULE BY MOUTH EVERY EVENING APPROXIMATELY 30 MINUTES AFTER THE SAME MEAL EACH DAY (FOR PROSTATE) Rx# [id number] Last Released: 10/16/23 Qty/Days' Supply: Rx Expiration Date: 09/04/24 Refills Remainin OUTPT TAMSULOSIN HCL 0.4MG CAP (Status = Active) TAKE ONE CAPSULE BY MOUTH EVERY EVENING APPROXIMATELY 30 MINUTES AFTER THE SAME MEAL EACH DAY (FOR PROSTATE) Rx# [id number] Last Released: 11/13/23 Qty/Days' Supply: Rx Expiration Date: 09/04/24 Refills Remainin OUTPT TERBINAFINE HCL 1% CREAM (Status = Active) APPLY LIGHTLY TO AFFECTED AREA(S) TWICE A DAY FOR FUNGAL SKIN INFECTION Rx# [id number] Last Released: 08/07/23 Qty/Days' Supply: 120/90 Rx Expiration Date: 05/28/24 Refills Remainin Indication: FOR FUNGAL SKIN INFECTION OUTPT TRIAMCINOLONE ACETONIDE 0.1% OINT (Status = Active) APPLY LIGHTLY TO AFFECTED AREA(S) TWICE A DAY FOR CONTACT DERMATITIS TO AREAS OF ITCHY RASH NEEDED. FOR EXTERNAL USE ONLY. Rx# [id number] Last Released: 01/23/24 Qty/Days' Supply: 80/30 Rx Expiration Date: 12/12/24 Refills Remainin Indication: FOR CONTACT DERMATITIS SUPPLIES OUTPT GLUCOSE SENSOR FREESTYLE BRADLEY 2 (Status = Active/Suspended) USE SENSOR EVERY 2 WEEKS FOR BLOOD SUGAR MONITORING CHANGE SENSOR/SITE EVERY 14 DAYS. TO REPLACE SENSOR FOR ANY REASON OR FOR TECHNICAL HELP PLEASE CALL [employer] DESK: -SPECIFIC PHONE NUMBER: ([phone]). Rx# [id number] Last Released: 01/15/24 Qty/Days' Supply: 09/24 Rx Expiration Date: 10/22/24 Refills Remainin Indication: FOR BLOOD SUGAR MONITORING OUTPT INSULIN SYRINGE 1ML 30G 12MM (Status = Active/Suspended) USE 1 SYRINGE UNDER THE SKIN ONCE A DAY FOR USE WITH INSULIN TO CONTROL BLOOD SUGAR. Rx# [id number] Last Released: 12/02/23 Qty/Days' Supply: 100/90 Rx Expiration Date: 09/04/24 Refills Remainin OUTPT NEEDLE,PEN 31G,5MM (Status = Active/Suspended) USE 1 NEEDLE UNDER THE SKIN THREE TIMES A DAY BEFORE MEALS WITH NOVOLOG FLEXPEN Rx# [id number] Last Released: 12/25/23 Qty/Days' Supply: 300/90 Rx Expiration Date: 09/04/24 Refills Remainin PHARMACY TERMS AND POSSIBLE PATIENT ACTIONS INPT = IN inpatient order IV = IN intravenous medication OUTPT = IN outpatient prescription PHARMACY POSSIBLE PATIENT TERMS EXPLANATION ACTIONS -------- ---- ACTIVE A prescription that can be If you have refills, filled at the local [place] pharmacy. you may request a refill of this prescription from your VA pharmacy. CLINIC A medication you received during If you have questions a visit to a [place] clinic or about this medication emergency department. contact your VA healthcare team. DISCONTINUED A prescription your provider has Contact your VA stopped. It is no longer healthcare team if you available to be sent to you or need more of this picked up at the [place] pharmacy medication. window. A prescription which is too old Contact your VA to fill. This does not refer to healthcare team if you the expiration date of the need more of this medication in the container. medication. NON-VA A medication that came from If this medication someplace other than a VA information is pharmacy. This may be an incorrect or out of prescription from either the VA date, please tell your or non-VA providers that was VA healthcare team. filled outside the VA. Or, it may be an rnwn-gda-[id number] (OTC), herbal, dietary supplements or sample medication. ON HOLD An active prescription that will Contact your VA not be filled until pharmacy when you need resolves the issue. more of this medication. PARKED An active prescription that will Contact your VA not be filled until the patient pharmacy when you need requests it. this medication. PENDING This prescription order has been If you have been sent to the pharmacy for review instructed to start and is not ready yet. this medication now, contact your VA pharmacy. SUSPENDED An active prescription that is Contact your VA not scheduled to be filled yet. pharmacy if you need You should receive it before this medication now. you run out. DISCONTINUED: d/c clarting ADDED/CHANGES: changes to Zyrtec NON-VA MEDICATIONS NOT LISTED ABOVE (List, including Herbals and OTC): Reviewed with patient/family members. Copy given to patient. Patient verbalized understanding? yes ===== ASSESSMENT/IMPRESSION: 1. Annual well adult visit-current 2. Headaches feels like allergies-current 3. S/P SC-current 4. DM-unstable 5. hypertension-stable 6. GERD-stable 7. allergic rhinitis PLAN OF CARE: to see [place] today Monitor blood pressures and return in one week for bop check Instructed to go to the ER for any changes in the headache or any chest pain. Consult for Cardiac rehab placed Podiatry consult placed for [place] Follow-up: _already scheduled_ months and/or as needed and keep regularly scheduled appointment. Discussed diet and exercise as relevant to patient conditions. Patient is advised this primary care clinic has open access and he can make a same day appointment anytime a problem/concern arises. Patient further advised he can be seen on a walk-in basis as needed. Patient is provided clinic contact information. Treatment plan as noted above and the After Visit Summary was reviewed with ; opportunity provided to report concerns and ask question regarding aspects of care or treatment or services; concurrence reached and verbalized understanding. Discussed with patient that in the event of community imaging/testing being ordered in the future, once the imaging testing has been completed, please notify PACT of within 1 week by a VA PACT member; this is due to intermittent lapses in notification of imaging completion within CPRS. All questions answered; agrees to plan of care. Follow up as listed above, annually, and as needed. Keep all completion at outside facility if not called with results appointments. Medications Reconciled. Time spent 30 minutes. Michelle UMANZOR-[facility] CBOC APR Float *Hgb A1C 7 or >: Diabetic dietary restrictions were discussed with the patient. Basic diet rules reviewed. Food Pyramid reviewed. Patient agrees to see a dietitian to discuss possible dietary changes. PAVE Foot Check: A complete foot check was completed at this encounter. VISUAL INSPECTION: Includes inspection for skin breaks, deformity, erythema, trauma, pallor on elevation, dependent rub or, nail deformities, extensive callus and pitting edema. Visual exam results: Normal PEDAL PULSES: Includes palpation of dorsalis and posterior tibial pulses and signs/symptoms of vascular compromise like pain, pallor, paresthesia or paralysis. Present (even if diminished) Comment: DIMINESHED SENSATION OVER HEELS SENSORY CHECK: Includes 10 gram Monofilament ([place]) test of sensation. Intact (Greater than or equal to 80% of sites checked) Abnormal (Less than 80% of sites checked): Intact LOW-RISK: LOW RISK INFORMATION PROVIDED: 1. Advised patient not to walk barefoot. 2. Explained the importance of daily foot checks for changes. 3. Stressed the importance of daily foot hygiene, including bathing and complete drying. HTN Assess for Elevated BP>=140/90: Patient referred to PACT pharmacist for hypertension treatment. Comment: dr. Baker /felisha/ NOÉ Smith, MSN, Randall Golden [facility] Signed: 02/02/2024 10:46 MICHELLE BURROUGHS [facility] CB Feb 02, 2024 08:43 AM PRIMARY CARE NURSI NG NOTE: LOCAL TITLE: PRIMARY CARE NURSING PROGRESS NOTE (TEXT) NURSING P STANDARD TITLE: PRIMARY CARE NURSING NOTE DATE OF NOTE: FEB 02, 2024@08:43 ENTRY DATE: FEB 02, 2024@08:43:55 AUTHOR: FRANCIS MAHER COSIGNER: URGENCY: STATUS: COMPLETED Established Patient FIDEL ALCAZAR IS A 78 YEAR OLD MALE BEING SEEN IN CLINIC FEB 02, 2024. = = REASON FOR VISIT: Here for annual follow up on chronic health conditions. He is complaing of runny nose and head congestion, nasal drainage clear. He continues to have some weakness, is going for PT this Friday to start. 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 BP elevated, states it runs about mid 140's at home. Are you receiving care any where other than the VA? No HEALTH AND SURGICAL HISTORY: Does patient report using home oxygen? CURRENT ACTIVE MEDICATIONS FOR REVIEW: Allergies/ADRs (Tool #5) FACILITY ALLERGY/ADR -------- [facility] NO KNOWN ALLERGIES [facility] No Known Allergies [facility] NO KNOWN ALLERGIES Med. Reconciliation (Tool #1) INCLUDED IN THIS LIST: Alphabetical list of active outpatient prescriptions dispensed from this [place] (local) and dispensed from another VA or [facility]D facility (remote) as well as inpatient orders (local pending and active), local clinic medications, locally documented non-VA medications, and local prescriptions that have or been discontinued in the past 90 days. Non-VA Meds Last Documented On: Nov 13, 2017 NOTE The display of VA prescriptions dispensed from another VA or [facility]D facility (remote) is limited to active outpatient prescription entries matched to National Drug File at the originating site and may not include some items such as investigational drugs, compounds, etc. NOT INCLUDED IN THIS LIST: Medications self-entered by the patient into personal health records (i.e. [employer]) are NOT included in this list. Non-VA medications documented outside this [place], remote inpatient orders (regardless of status) and remote clinic medications are NOT included in this list. The patient and provider must always discuss medications the patient is taking, regardless of where the medication was dispensed or obtained. OUTPT AMLODIPINE BESYLATE 10MG TAB (Status = Active) TAKE ONE TABLET BY MOUTH ONCE A DAY FOR HEART/BLOOD PRESSURE Rx# [id number] Last Released: 11/12/23 Qty/Days Supply: 90 Rx Expiration Date: 09/04/24 Refills Remainin OUTPT ASPIRIN 81MG EC TAB (Status = Active/Suspended) TAKE ONE TABLET BY MOUTH ONCE A DAY FOR HEART OR CIRCULATION. TAKE WITH FOOD. Rx# [id number] Last Released: 12/26/23 Qty/Days Supply: 120/ Rx Expiration Date: 09/04/24 Refills Remainin OUTPT ATORVASTATIN CALCIUM 40MG TAB (Status = Active/Suspended) TAKE ONE TABLET BY MOUTH ONCE A DAY Rx# [id number] Last Released: 12/31/23 Qty/Days Supply: 90/ Rx Expiration Date: 12/29/24 Refills Remainin OUTPT AZELASTINE 137MCG/SPRAY 200D NASAL INHL (Status = Active/Suspended) SPRAY 1 PUFF IN EACH NOSTRIL TWICE DAILY NEEDED FOR ALLERGIC RHINITIS. *PRIME BEFORE USE* Rx# [id number] Last Released: 01/13/24 Qty/Days Supply: 08/26 Rx Expiration Date: 09/04/24 Refills Remainin OUTPT CALCIUM POLYCARBOPHIL 625MG TAB (Status = Active/Suspended) TAKE TWO TABLETS BY MOUTH ONCE A DAY FOR FIBER Rx# [id number] Last Released: 12/03/23 Qty/Days Supply: 180/ Rx Expiration Date: 09/04/24 Refills Remainin OUTPT DOCUSATE NA 100MG CAP (Status = Active/Suspended) TAKE ONE CAPSULE BY MOUTH THREE TIMES A DAY NEEDED TO SOFTEN STOOL. HOLD FOR LOOSE STOOL/DIARRHEA. Rx# [id number] Last Released: 01/12/24 Qty/Days Supply: 300/ Rx Expiration Date: 05/19/24 Refills Remainin OUTPT FLUTICASONE PROP 50MCG 120D NASAL INHL (Status = Active/Suspended) INSTILL 2 SPRAYS IN NOSTRIL(S) ONCE A DAY FOR RHINITIS (MUST BE USED DIRECTED FOR MINIMUM OF 21 DAYS TO PROVIDE ADEQUATE BENEFITS) Rx# [id number] Last Released: 12/26/23 Qty/Days Supply: Rx Expiration Date: 09/04/24 Refills Remainin Indication: FOR RHINITIS OUTPT INSULIN,ASPART(EQV-NOVLG)100 UN/ML FLXPEN (Status = Active/Suspended) INJECT 10 UNITS UNDER THE SKIN THREE TIMES A DAY BEFORE MEALS FOR BLOOD SUGAR CONTROL. ADMINISTER 10 MINUTES BEFORE FOOD DIRECTED. REFRIGERATE UN-OPENED PENS. DISCARD CARTRIDGE 28 DAYS AFTER OPENING. WILL REPLACE INSULIN REGULAR Rx# [id number] Last Released: 01/19/24 Qty/Days Supply: Rx Expiration Date: 09/04/24 Refills Remainin OUTPT INSULIN,GLARGINE-YFGN 100UNIT/ML INJ (Status = Active/Suspended) INJECT 50 UNITS UNDER THE SKIN ONCE A DAY FOR DIABETES (AT SAME TIME EACH DAY) - (DISCARD ANY UNUSED PORTION 28 DAYS AFTER OPENING) Rx# [id number] Last Released: 11/11/23 Qty/Days Supply: Rx Expiration Date: 09/04/24 Refills Remainin Indication: FOR DIABETES OUTPT IPRATROPIUM BR 0.03% NASAL SPRAY (Status = Active/Suspended) USE 2 SPRAYS INTO EACH NOSTRIL THREE TIMES A DAY NEEDED FOR ALLERGIES/NASAL SYMPTOMS. Rx# [id number] Last Released: 01/19/24 Qty/Days Supply: Rx Expiration Date: 09/04/24 Refills Remainin OUTPT LORATADINE 10MG TAB (Status = Active/Suspended) TAKE ONE TABLET BY MOUTH ONCE A DAY FOR ALLERGIC RHINITIS ON EMPTY STOMACH Rx# [id number] Last Released: 12/26/23 Qty/Days Supply: Rx Expiration Date: 09/04/24 Refills Remainin Indication: FOR ALLERGIC RHINITIS OUTPT LOSARTAN 100MG TAB (Status = Active/Suspended) TAKE ONE TABLET BY MOUTH ONCE A DAY TO LOWER BLOOD PRESSURE Rx# [id number] Last Released: 12/02/23 Qty/Days Supply: Rx Expiration Date: 09/04/24 Refills Remainin OUTPT METOPROLOL TARTRATE 50MG TAB (Status = Active/Suspended) TAKE ONE-HALF TABLET BY MOUTH TWICE A DAY FOR HEART/BLOOD PRESSURE. TAKE WITH OR IMMEDIATELY FOLLOWING FOOD. Rx# [id number] Last Released: 12/23/23 Qty/Days Supply: Rx Expiration Date: 09/04/24 Refills Remainin OUTPT MONTELUKAST NA 10MG TAB (Status = Active/Suspended) TAKE ONE TABLET BY MOUTH AT BEDTIME FOR BREATHING Rx# [id number] Last Released: 12/09/23 Qty/Days Supply: Rx Expiration Date: 09/04/24 Refills Remainin Indication: FOR BREATHING OUTPT PANTOPRAZOLE NA 40MG EC TAB (Status = Active/Suspended) TAKE ONE TABLET BY MOUTH EVERY MORNING BEFORE A MEAL TO LOWER STOMACH ACID - TAKE 30 MINUTES BEFORE MEAL(S) Rx# [id number] Last Released: 12/24/23 Qty/Days Supply: Rx Expiration Date: 09/04/24 Refills Remainin OUTPT PREGABALIN 75MG ORAL CAP (Status = Active/Suspended) TAKE ONE CAPSULE BY MOUTH EVERY 12 HOURS *MAY CAUSE DROWSINESS* Rx# [id number] Last Released: 01/21/24 Qty/Days Supply: Rx Expiration Date: 04/09/24 Refills Remainin OUTPT SIMVASTATIN 20MG TAB (Status = Discontinued) TAKE ONE-HALF TABLET BY MOUTH EVERY EVENING TO LOWER CHOLESTEROL (REPORT ANY MUSCLE PAIN OR WEAKNESS) THIS TABLET IS TO BE CUT IN HALF FOR YOUR DOSE Rx# [id number] Last Released: 11/13/23 Qty/Days Supply: Rx Expiration Date: 09/04/24 Refills Remainin OUTPT TAMSULOSIN HCL 0.4MG CAP (Status = Discontinued) TAKE ONE CAPSULE BY MOUTH EVERY EVENING APPROXIMATELY 30 MINUTES AFTER THE SAME MEAL EACH DAY (FOR PROSTATE) Rx# [id number] Last Released: 10/16/23 Qty/Days Supply: Rx Expiration Date: 09/04/24 Refills Remainin OUTPT TAMSULOSIN HCL 0.4MG CAP (Status = Active) TAKE ONE CAPSULE BY MOUTH EVERY EVENING APPROXIMATELY 30 MINUTES AFTER THE SAME MEAL EACH DAY (FOR PROSTATE) Rx# [id number] Last Released: 11/13/23 Qty/Days Supply: Rx Expiration Date: 09/04/24 Refills Remainin OUTPT TERBINAFINE HCL 1% CREAM (Status = Active) APPLY LIGHTLY TO AFFECTED AREA(S) TWICE A DAY FOR FUNGAL SKIN INFECTION Rx# [id number] Last Released: 08/07/23 Qty/Days Supply: 120/90 Rx Expiration Date: 05/28/24 Refills Remainin Indication: FOR FUNGAL SKIN INFECTION OUTPT TRIAMCINOLONE ACETONIDE 0.1% OINT (Status = Active) APPLY LIGHTLY TO AFFECTED AREA(S) TWICE A DAY FOR CONTACT DERMATITIS TO AREAS OF ITCHY RASH NEEDED. FOR EXTERNAL USE ONLY. Rx# [id number] Last Released: 01/23/24 Qty/Days Supply: 80 Rx Expiration Date: 12/12/24 Refills Remainin Indication: FOR CONTACT DERMATITIS SUPPLIES OUTPT GLUCOSE SENSOR FREESTYLE BRADLEY 2 (Status = Active/Suspended) USE SENSOR EVERY 2 WEEKS FOR BLOOD SUGAR MONITORING CHANGE SENSOR/SITE EVERY 14 DAYS. TO REPLACE SENSOR FOR ANY REASON OR FOR TECHNICAL HELP PLEASE CALL [employer] DESK: -SPECIFIC PHONE NUMBER: [phone]). Rx# [id number] Last Released: 01/15/24 Qty/Days Supply: 09/24 Rx Expiration Date: 10/22/24 Refills Remainin Indication: FOR BLOOD SUGAR MONITORING OUTPT INSULIN SYRINGE 1ML 30G 12MM (Status = Active/Suspended) USE 1 SYRINGE UNDER THE SKIN ONCE A DAY FOR USE WITH INSULIN TO CONTROL BLOOD SUGAR. Rx# [id number] Last Released: 12/02/23 Qty/Days Supply: 100/90 Rx Expiration Date: 09/04/24 Refills Remainin OUTPT NEEDLE,PEN 31G,5MM (Status = Active/Suspended) USE 1 NEEDLE UNDER THE SKIN THREE TIMES A DAY BEFORE MEALS WITH NOVOLOG FLEXPEN Rx# [id number] Last Released: 12/25/23 Qty/Days Supply: 300/90 Rx Expiration Date: 09/04/24 Refills Remainin PHARMACY TERMS AND POSSIBLE PATIENT ACTIONS INPT = IN inpatient order IV = IN intravenous medication OUTPT = IN outpatient prescription PHARMACY POSSIBLE PATIENT TERMS EXPLANATION ACTIONS -------- ---- ACTIVE A prescription that can be If you have refills, filled at the local [place] pharmacy. you may request a refill of this prescription from your [facility] pharmacy. CLINIC A medication you received during If you have questions a visit to a [place] clinic or about this medication emergency department. contact your [facility] healthcare team. DISCONTINUED A prescription your provider has Contact your [facility] stopped. It is no longer healthcare team if you available to be sent to you or need more of this picked up at the [place] pharmacy medication. window. A prescription which is too old Contact your [facility] to fill. This does not refer to healthcare team if you the expiration date of the need more of this medication in the container. medication. NON-VA A medication that came from If this medication someplace other than a VA information is pharmacy. This may be a incorrect or out of prescription from either the VA date, please tell your or non VA providers that was VA healthcare team. filled outside the [facility]. Or, it may be an [id number] (OTC), herbal, dietary supplements or sample medication. ON HOLD An active prescription that will Contact your [facility] not be filled until pharmacy pharmacy when you need resolves the issue. more of this medication. PARKED An active prescription that will Contact your [facility] not be filled until the patient pharmacy when you need requests it. this medication. PENDING This prescription order has been If you have been sent to the pharmacy for review instructed to start and is not ready yet. this medication now, contact your VA pharmacy. SUSPENDED An active prescription that is Contact your [facility] not scheduled to be filled yet. pharmacy if you need You should receive it before this medication now. you run out. IS PATIENT TAKING ANY OVER THE COUNTER MEDICATIONS, SUCH VITAMINS OR HERBAL SUPPLEMENTS, INCLUDING ANY MEDICATIONS PRESCRIBED BY ANOTHER PHYSICIAN? Yes, List: Multi Vitamin daily / Vitamin D3 1,000iu daily ALLERGIES/ADVERSE REACTIONS: Patient has answered NKA Does patient have any new allergies to report since last visit? VITALS: TEMPERATURE: 98.2 F [36.8 C] (02/02/2024 08:43) BP: 158/62 (02/02/2024 08:43) RESP: 20 (02/02/2024 08:43) PULSE: 62 (02/02/2024 08:43) HT: 70 in [177.8 cm] (03/30/2019 14:05) WT: 198.4 lb [89.99 kg] (02/02/2024 08:43) BMI: 28.5 PAIN ASSESSMENT: (Most Recent Pain Score in Vitals Package: 0 (02/02/2024 08:43) ) The patient indicated that they and their close contacts have not traveled outside of the [place] in the past 21 days. The patient reports the following symptoms: No symptoms present The patient is not immunocompromised. The patient does not report having a history of Multi Drug Resistant Organism (MDRO) within the last five years. The patient does not report having been exposed to measles, chickenpox, or zoster in last 30 days. STRESS: Thank you for your service. Now let us serve you. At the [facility], we strive to provide you with exceptional health care that improves your health and well-being. Are you feeling sad, empty, or depressed? No Do you need to talk about things in your life that worry you or cause you stress? No Do you need to talk about personal problems, family problems, alcohol use, drug use, or mental or emotional illness? No SUICIDE SCREENING: The patient was asked, Over the past two weeks, how often have you been bothered by thoughts that you would be better off or of hurting yourself in some way? Not At All SPIRITUAL ASSESSMENT: Are there yazidism practices or spiritual concerns you want the monotype machinist, your physician, and other health care team members to immediately know about? Patient advised to call the clinic for any concerns, questions, or symptoms. Patient and/or caregiver verbalized understanding of plan of care. Suicide Screen: C-SSRS Screening [place]-Suicide Severity Rating Scale (C-SSRS Screener) 1. Over the past month, have you wished you were or wished you could go to sleep and not wake up? No 2. Over the past month, have you had any actual thoughts of killing yourself? No 3. Over the past month, have you been thinking about how you might do this? Response not required due to responses to other questions. 4. Over the past month, have you had these thoughts and had some intention of acting on them? Response not required due to responses to other questions. 5. Over the past month, have you started to work out or worked out the details of how to kill yourself? Response not required due to responses to other questions. 6. If yes, at any time in the past month did you intend to carry out this plan? Response not required due to responses to other questions. 7. In your lifetime, have you ever done anything, started to do anything, or prepared to do anything to end your life (for example, collected pills, obtained a gun, gave away valuables, went to the roof but didn't jump)? No 8. If YES, was this within the past 3 months? Response not required due to responses to other questions. FALL RISK OP PB: VILLA FALL RISK ASSESSMENT Have you experienced any falls within the last 12 months: 0 = No Secondary Dx: 5 = Yes Secondary Dx Ambulatory Aid: 0 = No Gait/Transferrin = Normal/Bedrest/Immobile Mental status: 0 = Oriented to own ability Medications: 0 = No high risk meds TOTAL SCORE: 5 Score <30 - patient IS NOT at risk for falls. No action at this time. Reassess annually or if needed. Fall Documentation No - Patient did not experience a fall within the last year Alcohol Use Screen (AUDIT-C): Alcohol Screen: SCREEN FOR ALCOHOL (AUDIT-C) An alcohol screening test (AUDIT-C) was negative (score=3). 1. How often did you have a drink containing alcohol in the past year? Consider a drink to be a 12 ounce can or bottle of regular beer, 8 ounces of malt liquor, a 5 ounce glass of table wine, or a 1.5 ounce shot of liquor (like scotch, gin, or vodka). Two to three times per week 2. How many drinks containing alcohol did you have on a typical day when you were drinking in the past year? One or two drinks 3. How often did you have six or more drinks on one occasion in the past year? Never Depression Screening: Perform PHQ-2 A PHQ-2 screen was performed. The score was 2 which is a negative screen for depression. Over the past two weeks, how often have you been bothered by the following problems? 1. Little interest or pleasure in doing things Not at all 2. Feeling down, depressed, or hopeless More than half the days Tobacco Use Screening: The patient is a former tobacco user. The patient quit fifteen or more years ago. Pain Assessment: - PAIN ASSESSMENT: .. Patient reports no pain at this visit. Pain Score = 0. Patient's self identified pain goal: 0 HTN Assess for Elevated BP>=140/90: Repeat blood pressure: 162/74 Patient/Nurse Interview: * * Patient states that questions were answered in a way that was easily understood. * Patient stated that adequate information was received regarding the condition and/or treatment. /felisha/ FRANCIS MAHER LPN Signed: 02/02/2024 08:51 FRANCIS MAHER [facility]
--- OUTSIDE RECORDS SUMMARY | 2024-02-02 04:00 | XMS_ITS | Encounter Summary ---
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 Name Role Phone NUR, ANITHA Primary Care Provider Unavailabl e Insurance [...] Policy Miller AETNA POINT OF SERVICE MHBP Sep 26, [id number] SURRITTFIDEL Abdullahi PATIENT AETNA POINT OF SERVICE MHBP POS Sep 26, 2017 [id number] SURRITTFIDEL Abdullahi PATIENT AETNA MEDICARE SECONDARY (NO B EXC) MHBP* Jul 28, 2017 [id number] [phone] SURRITTFIDEL Abdullahi PATIENT AETNA (MAILHANDL ERS) MEDICARE SECONDARY (NO B EXC) MHBP Sep 26, [id number] SURRIFIDEL INIGUEZ PATIENT AETNA-MHBP POINT OF SERVICE MHBP Jul 28, 2017 [id number] SURRITTE, FIDEL PATIENT AETNA-MHBP POINT OF SERVICE MHBP Jul 28, 2017 [id number] SURRITTE, FIDEL PATIENT [place] ([id number]) PRESCRIPT ION [id number] Jul 28, 2023 [id number] SURRITTE, FIDEL PATIENT [place] ([id number]) PRESCRIPT ION MHBP Jul 28, 2017 [id number] [phone] SURRITTE, FIDEL PATIENT [place] ([id number]) PRESCRIPT ION MHBP Jul 28, 2017 [id number] SURRITTE, FIDEL PATIENT [place] ([id number]) RX PRESCRIPT ION MHBP Sep 26, 2017 [id number] [phone] SURRITTE, FIDEL PATIENT MEDICARE ([facility]) MEDICARE (M) PART A May 28, 2008 PART A [id number] SURRITTE, FIDEL PATIENT MEDICARE ([facility]) MEDICARE (M) PART A May 28, 2008 PART A [id number] [phone] SURRITTE, FIDEL PATIENT MEDICARE ([facility]) MEDICARE (M) PART A May 28, 2008 PART A [id number] [phone] SURRITTE, FIDEL PATIENT MEDICARE (WNR) MEDICARE (M) PART A May 28, 2008 PART A [id number] SURRITTE, FIDEL PATIENT MEDICARE ([facility]) MEDICARE () PART A May 28, 2008 PART A [id number] SURRITTE, FIDEL PATIENT MEDICARE ([facility]) MEDICARE (M) PART A May 28, 2008 PART A [id number] [phone] SURRITTE, FIDEL PATIENT MEDICARE PART D (WNR) MEDICARE (M) PART D Jul 28, 2023 PART D [id number] SURRITTE, FIDEL PATIENT Selected Encounter This section includes the information on record at OR for the Encounter. Date/Time Encounter Type Encounter Description Reason Provider Source Feb 02, 2024 09:00 AM MTMS BY PHARM [place] 15 MIN CLINICAL PHARMACY ICD-10-CM E11.40 Type 2 diabetes mellitus with diabetic neuropathy, FRANKY Wise IHKaylen Encounter Template Text not used by OR Assessments - Encounter Diagnoses This section includes the primary and secondary diagnoses documented for the Encounter. Date/Time Primary/Secondary Diagnosis Diagnosis Name Provider Source Feb 02, 2024 10:31 AM PRIMARY Type 2 diabetes mellitus with diabetic neuropathy, FRANKY Wsie [facility] Plan of Treatment: Future Appointments (+ 6 months) and Future Tests (+/- 45 days) The Plan of Treatment section includes future care activities for the patient [facility] This section includes future appointments and future orders which are active, pending or scheduled. Future Appointments This section includes appointments that were scheduled to occur 6 months from the date of the Encounter, up to a maximum of 20 appointments. The data comes from all [place] treatment facilities. Appointment Date/Time Appointment Type Appointme nt Facility Name Feb 09, 2024 09:45 AM AMBULATORY - MEDICINE [facility] Feb 12, 2024 08:45 AM AMBULATORY - MEDICINE [place] [facility] Feb 20, 2024 08:00 AM AMBULATORY - MEDICINE [facility] Mar 16, 2024 10:00 AM AMBULATORY - MEDICINE [place] [facility] Mar 28, 2024 08:00 AM AMBULATORY - MEDICINE [place] [facility] Apr 09, 2024 09:30 AM AMBULATORY - MEDICINE [facility] Apr 26, 2024 11:00 AM AMBULATORY - MEDICINE [place] [facility] Apr 27, 2024 08:45 AM AMBULATORY - MEDICINE [facility] Apr 28, 2024 11:30 AM AMBULATORY - MEDICINE [place] [facility] May 14, 2024 09:30 AM AMBULATORY - MEDICINE [facility] May 26, 2024 10:00 AM AMBULATORY - MEDICINE [place] [facility] Jun 28, 2024 09:45 AM AMBULATORY - MEDICINE [facility] Jun 28, 2024 10:00 AM AMBULATORY - MEDICINE [facility] Aug 02, 2024 01:40 PM AMBULATORY - MEDICINE [place] [facility] Active, Pending, and Scheduled Orders This section includes a listing of several types of active, pending, and scheduled orders, including clinic medications orders, diagnostic test orders, procedure orders and consult orders; where the start date of the order is 45 days before the date of the Encounter or 45 days after the date of theEncounter. The data comes from all [place] treatment facilities. Test Date/Time Test Type Test Details Facility Name Feb 02, 2024 12:00 AM Laboratory - Chemi stry Order CBC BLOOD [facility] Feb 02, 2024 12:00 AM Laboratory - Chemi stry Order URINE ALBUMIN PROFILE-ih (PB) URINE,[facility] Feb 02, 2024 12:00 AM Laboratory - Chemi stry Order TSH (MA-PB) GOLD/RED SST SERUM [facility] Lab Results: +/- 30 days of the encounter This section includes the Chemistry and Hematology Lab Results on record with OR for the patient. Radiology Reports and Pathology Reports are provided separately, in subsequent sections. Lab Results This section contains the Chemistry/Hematology Results that were resulted 30 days before or 30 daysafter the date of the Encounter. Date/Time Source Result Type Result - Unit Interpretation Reference Range Specimen Type Comment Jan 26, 2024 08:03 AM [facility] CPK PROFILE (PB) PLASMA Specimen Type: PLASMA No comment entered. Ordering Provider: FRANKY NASH Report Released Date/Time: Jan 09, 2024 05:51 AM Reporting Lab: [place] [facility] [address] [place] [address] Performing Lab: [place] [facility] [address] [place] [address] CPK 37 U/L 30-200 Jan 26, 2024 08:03 AM [facility] DIRECT LDL (MA-PB) PLASMA Specimen Type: PLASM A No comment entered. Ordering Provider: FRANKY NASH Report Released Date/Time: Jan 09, 2024 05:51 AM Reporting Lab: [place] [facility] [address] [place] [address] Performing Lab: [place] [facility] [address] [place] [address] DIRECT LDL 47.7 mg/dL 0-99.9 Jan 26, 2024 08:03 AM [facility] CHOLESTEROL PANEL (PB) PLASMA Specimen Type: P LASMA No comment entered. Ordering Provider: FRANKY NASH Report Released Date/Time: Jan 09, 2024 05:51 AM Reporting Lab: [place] [facility] [address] [place] [address] Performing Lab: [place] [facility] [address] [place] [address] CHOLESTEROL 103 mg/dL 0-200 TRIGLYCERIDE 27 mg/dL 0-150 CALCULATED LDL 51.7 mg/dL HDL(New) 45.9 mg/dL H >40 HDL % OF TOTAL CHOLESTEROL (PB) 44.6 >25 Jan 26, 2024 08:03 AM [facility] VITAMIN D, 25-HYDROXY SERUM Specimen Type: SE RUM No comment entered. Ordering Provider: FRANKY NASH Report Released Date/Time: Jan 09, 2024 05:51 AM Reporting Lab: [place] [facility] [address] [place] [address] Performing Lab: [place] [facility] [address] [place] [address] VITAMIN D, 25-HYDROXY 61.4 ng/mL 30-96 Jan 26, 2024 08:03 AM [facility] FOLATE (PB) SERUM Specimen Typ e: SERUM No comment entered. Ordering Provider: FRANKY NASH Report Released Date/Time: Jan 09, 2024 05:51 AM Reporting Lab: [place] [facility] [address] [place] [address] Performing Lab: [place] [facility] [address] [place] [address] FOLATE (PB) >20.0 ng/mL H 7-20 Jan 26, 2024 08:03 AM [facility] B12 SERUM Specimen Type: SERUM No comment entered. Ordering Provider: FRANKY NASH Report Released Date/Time: Jan 09, 2024 05:51 AM Reporting Lab: [place] [facility] [address] [place] [address] Performing Lab: [place] [facility] [address] [place] [address] B12 567 pg/mL 213-816 Jan 26, 2024 08:03 AM [facility] HGA1C BLOOD Specimen Type: BLOOD No comment entered. Ordering Provider: FRANKY NASH Report Released Date/Time: Jan 09, 2024 05:51 AM Reporting Lab: [place] [facility] [address] [place] [address] Performing Lab: [place] [facility] [address] [place] [address] HGA1C 8.6 H 4.0-6.0 Jan 26, 2024 08:03 AM [facility] COMPREHENSIVE METABOLIC PANEL PLASMA Specimen Type: PLASMA No comment entered. Ordering Provider: FRANKY NASH Report Released Date/Time: Jan 09, 2024 05:51 AM Reporting Lab: [place] [facility] [address] [place] [address] Performing Lab: [place] [facility] [address] [place] [address] CREATININE 1.01 mg/dL 0.7-1.3 UREA NITROGEN 11 [...] Source Feb 02, 2024 08:50 AM 162/74 [facility] Feb 02, 2024 08:43 AM 98.2 62 158/62 20 98 0 198.4 29 [facility] Social History: Smoking Status (Most current) and Tobacco Use (All prior to encounter date) This section includes the most current, and the historical, smoking and tobacco- related health factors from the OR facility where the Encounter took place. Current Smoking Status This section includes the most current smoking, or tobacco-related health factor, from the OR facility where the Encounter took place. Date/Time Current Smoking Status Comment Facil ity Feb 02, 2024 08:30 AM VA-TOBACCO FORMER USER [facility] Tobacco Use History This section includes a history of the smoking, or tobacco-related health factors, that were collected on or before the date of the Encounter. The data comes from the [place] facility where the Encounter took place. Date/Time Smoking Status/Tobacco Use Comment F acility Feb 02, 2024 08:30 AM VA-TOBACCO QUIT 15 YRS OR MORE [facility] Feb 17, 2023 10:30 AM VA-TOBACCO FORMER USER [facility] [place] [facility] Feb 17, 2023 10:30 AM VA-TOBACCO QUIT 15 YRS OR MORE [facility] Feb 20, 2022 10:00 AM VA-TOBACCO FORMER USER [facility] Feb 20, 2022 10:00 AM VA-TOBACCO QUIT 15 YRS OR MORE [facility] Feb 17, 2019 10:44 AM VA-TOBACCO FORMER USER [facility] Feb 17, 2019 10:44 AM VA-TOBACCO QUIT 15 YRS OR MORE [facility] Feb 15, 2019 09:43 AM VA-TOBACCO FORMER USER [facility] Feb 15, 2019 09:43 AM VA-TOBACCO QUIT 15 YRS OR MORE [facility] Apr 08, 2018 01:31 PM QUIT TOBACCO >7 YEARS AGO [facility] Oct 28, 2017 08:48 AM QUIT TOBACCO >7 YEARS AGO [facility] May 28, 2017 11:33 AM QUIT TOBACCO >7 YEARS AGO [facility] May 17, 2008 08:50 AM QUIT TOBACCO >7 YEARS AGO [facility] Oct 30, 2007 08:52 AM QUIT TOBACCO >7 YEARS AGO [facility] Mar 09, 2007 08:13 AM QUIT TOBACCO >7 YEARS AGO [facility] Jun 11, 2005 08:28 AM LIFETIME NON-TOBACCO USER [facility] Apr 08, 2005 10:40 AM CURRENT NON-TOBACC O USER-HX OF USE [facility] Oct 05, 2004 11:10 AM CURRENT NON-TOBACC O USER-HX OF USE [facility] Jun 29, 2004 08:36 AM CURRENT NON-TOBACC O USER-HX OF USE [facility] Dec 30, 2003 11:01 AM CURRENT NON-TOBACC O USER-HX OF USE [facility] Jul 15, 2003 11:11 AM CURRENT NON-TOBACC O USER-HX OF USE quit Jul 1998 [facility] Dec 27, 2002 12:57 PM CURRENT NON-TOBACC O USER-HX OF USE [facility] Mar 31, 2002 10:19 AM CURRENT NON-TOBACC O USER-HX OF USE [facility] Sep 15, 2001 01:22 PM CURRENT NON-TOBACC O USER-HX OF USE [facility] Feb 16, 2001 03:11 PM CURRENT NON-TOBACC O USER-HX OF USE quit 2 yrs ago, 1 pk day [facility] Encounter Notes: All associated encounter notes This section contains the clinical notes associated to the Encounter. Date/Time Encounter Note(s) Provider Source Feb 02, 2024 03:50 AM PHARMACY NOTE: LOCAL TITLE: PHARMACY CHRONIC DISEASE STATE MANAGEMENT PB STANDARD TITLE: PHARMACY NOTE DATE OF NOTE: FEB 02, 2024@03:50 ENTRY DATE: FEB 02, 2024@03:50:24 AUTHOR: FRANKY NASH COSIGNER: URGENCY: STATUS: COMPLETED STANDARD TITLE: RE-Teaching, re-evaluation, and Discussion of Continuous Blood Glucose Monitoring (CGM) from original appt. Patient: Fidel Holliday - [id number] The following identifiers were used to verify this patient: Full Name and social security number service connected: not connected Chief Complaint: T2D - dyslipidemia - GERD - HTN - COPD - prostatitis - h/o herpes zoster - obstructive sleep apnea - allergic rhinitis - pericarditis - bundle-branch block - cartoid stenosis - cerebral ischemia - seizure d/o - cerebral infaction - vertigo - pericardial disease - BPH - hip arthritis - impacted cerumen Demographics:78 y/o Male - BMI:28.57 - WT:90.49KG - B/P:140/62 on Dec per clinic, which is decreased from 160/80 on Aug 138/71 on 28 MAY 2023 in clinic and prior was 134/50 on 26 NOV 2022 in clinic - last HA1c:8.6 on Jan, 8.3 on , 7.4 on Jan and 8.1 on 26 NOVEMBER - last measured glucose: 116 on Jan, decreased form 161 on Aug Allergies:Patient has answered NKA - confirmed Pertinent Labs: HGB A1C Collection DT Specimen Test Name Result Units Ref Range 09/22/2023 08:03 BLOOD HGA1C 8.3 H % 4.0 - 6.0 02/10/2023 07:55 BLOOD HGA1C 7.4 H % 4.0 - 6.0 02/13/2022 08:11 BLOOD HGA1C 7.8 H % 4.0 - 6.0 09/28/2021 11:33 BLOOD HGA1C 7.7 H % 4.0 - 6.0 Patient Weight History - Last Four 1. 200.7 lbs. / 91.0 kg. on MAY 28, 2023@08:53:53 2. 195.8 lbs. / 88.8 kg. on FEB 17, 2023@10:34:14 3. 199.5 lbs. / 90.5 kg. on JUL 04, 2022@09:52:21 4. 203.4 lbs. / 92.3 kg. on FEB 20, 2022@10:09:36 LIVER FUNCTION PANEL Labs: triglyceride cholesterol LDL values are high TRIGLYCERIDE 41 mg/dL 09/22/2023 08:03 CHOLESTEROL 139 mg/dL 09/22/2023 08:03 HDL(New) 52.0 H mg/dL 09/22/2023 08:03 DIRECT LDL 75.6 mg/dL 09/22/2023 08:03 CALCULATED LDL 78.8 mg/dL 09/22/2023 08:03 HDL % OF TOTAL CHOLESTEROL (PB) 37.4 % 09/22/2023 08:03 DIRECT LDL 75.6 mg/dL 09/22/2023 08:03 Liver Function Tests: values are within acceptable limit SGOT: 20 U/L (09/22/23 08:03) SGPT: 19 U/L (09/22/23 08:03) Chemistry: Sodium: SODIUM 136 mEq/L 09/22/2023 08:03 POTASSIUM 4.1 mEq/L 09/22/2023 08:03 Chloride: 102 mEq/L (09/22/23 08:03) BUN: 15 mg/dL (09/22/23 08:03) Glucose: GLUCOSE 161 H mg/dL 09/22/2023 08:03 ALT/SGPT 19 U/L 09/22/2023 08:03 AST/SGOT 20 U/L 09/22/2023 08:03 Renal function: Creatinine Clearance: 55.3mL/min CREATININE 1.10 mg/dL 09/22/2023 08:03 EGFR (DISCONTINUED 10/25/21) 69.1 09/28/2021 11:33 EGFR (CKD-EPI 2020) 68 09/22/2023 08:03 No MICRAL/CREAT RATIO (STL) data found -Report of latest blood glucose: latest blood glucose values per lab was 116 on Jan, decreased from 161 on Aug increased from 118 on 24 FEB 2023 and prior was 255 [not-fasting] on 10 FEB 2023 and prior was 200 on 27 DEC 2022 [not- fasting], decreased from early NOVEMBER at 251; pt. states last B/Gs have been in the 130s to 190s range, much decreased from 200 to 220 range in early JAN 2023 -Pt. also continues to have slightly low sodium, which was partially due to hydrochlorothiazide, which was decreased to 12.5 mg and now d/c'ed by laminated plastics assembler and gluer; also has consumed too much tea, coffee, soda, [caffeine] increased water intake; pt. will decrease electrolyte beverages to 1/3 with 2/3 water; patient has decreased fluid consumption to 1000 to 1500ml/day for the last several months -Changed loratadine to cetirazine 10 mg daily and add added fluticasone nasal at 2 sprays each nostril to go with montelukast, azelastine, and ipratropium nasal daily for rhinitis symptoms and wheezing Pt. to cont, insulin glargine at 50-54 units in am and aspart 8-10 units 3 times daily before meals and may increae or decrease per accurate CGM monitoring and dietary consumption; started empagliflozin at 12.5mg [1/2 tab.] daily with all warnings and pre-cautions and necessity to keep gentitourinary area clean and report anyy problems promptly to clinic -Pt. had recent stent placemant for coronary angiogram and balloon angioplasty was performed to marginal branch for non-ST elevation myocardial infarction (NSTEMI); pt. did have transient bradycardia post angioplasty therefore beta- blockers was discontinued and heart rate and blood pressure has improved; gave pt. new B/P monitor for home use with directions and will get measurement at next clinic appt. Elmer and spouse/caregiver participated in a formatted CGM re-teaching and explination session for the [employer]-2 Flash system via a trained and certified specialist in diabetes education The Continuous Blood Glucose Monitoring Session again covered the following goals and topics, as a refresher: - Main Objective: Provide patient with a re-education session that will assist the in having a better understanding of their CGM use and equipment management - Topics covered: indications, contraindications, warnings [concerning use of asa and vitamin C [> trace amounts], cautions, alarms, safety information, interfering substances and limitations; also start up time of 1 hour before readings are available per new sensor placement - Goals: Data was accessed and interpretation of collected parameters per AGP report: 1. To provide the with a good understanding of their CGM and use of the tool to ensure and promote adherence to stated blood glucose controlled therapy 2. Exlpained that blood glucose goals may vary depending on the patient's age, comorbidities, and overall health status; goal for this pt. is 110 to 140 range consistantly 3. Familiarization with system - general principles 4. Sensor application - site selection, sufficient cleaning of choosen site, removal of skin oil at site, assptic technique, and needle placement; also discussed was adhesive type(s) and requirement for pt. to obtain spearately 5. Starting a new sensor - 14 day duration, prevention of needle bending, and caution to use only provided monitor/enclosed reader device and no I-phone or attempted change within activation period per each sensor 6. Only store sensor between 36 and 82 degrees F; never let it freeze hoy leave in hot direct sunlight 7. Obtaining glucose readings; scan sensor at least every 8 hours 8. Explained difference in interstitial process capillary blood glucose readings 9. Alarms - optional; not for use with this pt. 10. Instructed to verify sensor readings with SMBG if you feel sensor readings are not correct or match your feelings and do not ignore symptoms which might be reflective of low or high blood glucose; also do SMBG test when you see the check BG symbol during the first 12 hours of wearing a sensor or sensor glucose reading does not include a current number 11. Reviewing stored history 12. Maintenance and disposal 13. Interpreting sensor readings - what the numbers (values) mean 14. Trend arrow explaination and absolute importance of B/G values increasing or decreasing 15. Low/high messages 16. Always removed since her prior to an MRI or CT scan and remember sensor may be damaged by exposure to airport x-ray screening 17. Treatment decisions, that is, as to timing of insulins dosing and/or other oral medications adjustment matched to an individual meal's caloric intake or [total amount, content, and type of food eaten at an individual meal setting] 18. Complications - pt. has an extremely high stress levels, co-morbities, and elderly age 19.Compliance - pt. is not having issues, except cont. ordering of sensors; pt. cautioned to not run out Data was accessed and interpretation of collected parameters per AGP report: TIR:82%; IQR:21%/79%; ave. scans/day:9; BT: 1%; AT:12%; VHT:2%; VLT:1%; coefficient/stormy.:23; GMI at 70-180 is 87%; also for interpretation of collected parameters; corrct monitoring achieved; pt. has good use of tool overall and B/Gs have been reduced - Self-monitoring: already checked for CGM accuracy and reviewed at start- up and on this appt. and on tri-monthly basis; also refreshed patient on the different signs and symptoms of hypoglycemia/hyperglycemia; identified the different factors that could lead to low or high B/Gs and refreshed spouse/caregiver's memory on dietary issues and meal planning - Conclusion: At the end of the session, animal attendants and trainers asked for final questions from the and/or caregiver and reviewed educational handouts that previously provided a detailed paper version of information that was presented during the original teaching session, including dietary and meal planning information -Data was accessed and interpretation of collected parameters per AGP report: TIR:73%; IQR:21%/79%; ave. scans/day:9; BT: 1%; AT:14%; VHT:2%; VLT:1%; coefficient/stormy.:28; GMI at 70-180 is 75% also for interpretation of collected parameters; corrct monitoring achieved; pt. has improved use of tool overall and B/Gs have been reduced -Target for Time in Range: Above 250 mg/dL = < 5% / Above 180 mg/dL = < 25% / Target Range (70 - 180 mg/dL) = > 70% / Less than 70 mg/dL = < 4% / Less than 54 mg/dL = < 1% PATIENT HEALTH EDUCATION SUMMARY: Patient and caregiver were encouraged to ask additional questions if they did not understand any information and read back was completed; pt's spouse has referenced the alok manual given for home study, adhesion guide, and reference for 's hot-line phone number for problems/issues encountered at a later time were provided; patient spouse/caregiver has demonstrated the ability to change sensors when required every 2 weeks [14 days] The patient and caregiver participated appropriately during the training session Topics re-taught: Use of the FreeStyle Pina-2 Flash system, prandial insulin modified usage scale, and dietary, weight, and exercise concerns, as well as lipid profile, and low motility issues General Comments: -Patient and caregiver verbalized an understanding of the educational topics covered once the presentation was given and all questions were again answered; patient and spouse/caregiver was told to continue to adjust his before meal time insulin by 5 to 15 units now that they are familiar with the CGM and meal planning/foods associated with the either increased or decreased need for prandial insulin at that time -Both a review of meal planning and dietary information in printed form was once again provided to both and spouse/caregiver to refer to at a later time, due to mis-placed originals; the absolute importance of dietary requirements and issues were stressed to both parties and also the requirement to eat consistently and not skip meals and eat at least a snack every 4 hours -Also as part of the discussion was a reminder of the patient's use of the design analyst's dedicated hot line for problem resolutions and toll-free phone number was provided by way of magnetic sticker and reminder cards -Also discussed was patient's scanning frequency at contract associate, before and after meals, early evening, and at bedtime at a minimum; patient's spouse/caregiver has been doing a good job of reminding pt. and monitoring frequency Time spent teaching session: 34 minutes - F2F - next f/u appt. for 18 OCT with labs for 15 OCT RTC: every 3 mon. tessa. freq. appts., unless issues arise, but can ask further questions at any time and to access data and field any additional questions PBM PharmD Pharmacotherapy Rem V12: PHARMACIST INTERVENTIONS: TYPE 2 DIABETES MELLITUS Medication monitoring, no dosage change required, continue to monitor and assess Plan: patient to continue insulin glargine at 50-54 units in am and aspart 8-10 units before meals and my adjust per CGM monitoring to keep B/Gs in the 110s to 130s range / started empagliflozin at 12.5mg daily with all warnings and pre-cautions and necessity to keep gentitourinary area clean and report anyy problems promptly to clinic / patient had f/u to CGM use and determine values for last months / check on fluid situation / also saw pt. and spouse/caregiver to re-train, answer further questions, and check sodium and chloride lab values; pt. is continuing CGM use / patient and SO were satisfied with session and all questions and concerns were addressed to pt's satisfaction / pt. did return for data eval. and re-consideration of decreasing electrolyte values and pt. will also return to recheck lab values for low sodium and chloride issues, which have improved at last labs / discontinued hydrochlorothiazide and stressed to pt. to aviod all cafeine containing beverages and limit fliuds / sodium and chloride values have increased at last labs / changed simvastatin to atorvastatin 40mg per cardiology, pantoprazole, tamsulosin, metoprolol tartrate, losartan, amlodipine, calcium polycarbophil, pregabalin, all 3 nasal sprays, montelukast, aspirin ETC 81 mg, and docusate / patient must try to continue deep breathing and coughing due to lung wheezing and congestion to prevent pneumonia / continue CGM use / moderate exercise, shabnam. in hot weather /felisha/ Sam ANDRES PACT CLINICAL VOICE WRITING REPORTER Signed: 02/02/2024 10:31 Receipt Acknowledged By: 02/03/2024 13:11 /felisha/ CORAL CHERRY [facility] Bassett CBFRANKY CABALLERO [place] DONNA ROWE
--- OUTSIDE RECORDS SUMMARY | 2024-02-09 04:45 | XMS_ITS | Encounter Summary ---
Author Name [facility] Address [address] [place] [address] Care Team Providers Care Director Of Rotc Name Role Phone NUR, ANITHA Primary Care [...] AETNA POINT OF SERVICE MHBP Sep 26, [id number] SURRITTMARIBEL Abdullahi PATIENT AETNA POINT OF SERVICE MHBP POS Sep 26, 2017 [id number] [phone] [id number] SURRITTMARIBEL Abdullahi PATIENT AETNA MEDICARE SECONDARY (NO B EXC) MHBP* Jul 28, 2017 [id number] [phone] SURRITTMARIBEL Abdullahi PATIENT AETNA (MAILHANDL ERS) MEDICARE SECONDARY (NO B EXC) MHBP Sep 26, [id number] MARIBEL ALCAZAR PATIENT AETNA-MHBP POINT OF SERVICE MHBP Jul 28, 2017 [id number] [phone] SURRITTE, MARIBEL PATIENT AETNA-MHBP POINT OF SERVICE MHBP Jul 28, 2017 [id number] SURRITTE, MARIBEL PATIENT [place] ([id number]) PRESCRIPT ION [id number] Jul 28, 2023 [id number] SURRITTE, MARIBEL PATIENT [place] ([id number]) PRESCRIPT ION MHBP Jul 28, 2017 [id number] [phone] SURRITTE, MARIBEL PATIENT [place] ([id number]) PRESCRIPT ION MHBP Jul 28, 2017 [id number] [phone] SURRITTE, MARIBEL PATIENT [place] ([id number]) RX PRESCRIPT ION MHBP Sep 26, 2017 [id number] [phone] SURRITTE, MARIBEL PATIENT MEDICARE ([facility]) MEDICARE (M) PART A May 28, 2008 PART A [id number] SURRITTE, MARIBEL PATIENT MEDICARE ([facility]) MEDICARE (M) PART A May 28, 2008 PART A [id number] SURRITTE, MARIBLE PATIENT MEDICARE ([facility]) MEDICARE (M) PART A May 28, 2008 PART A [id number] [phone] SURRITTE, MARIBEL PATIENT MEDICARE (WNR) MEDICARE (M) PART A May 28, 2008 PART A [id number] [phone] SURRITTE, MARIBEL PATIENT MEDICARE ([facility]) MEDICARE () PART A May 28, 2008 PART A [id number] [phone] SURRITTE, MARIBEL PATIENT MEDICARE ([facility]) MEDICARE (M) PART A May 28, 2008 PART A [id number] SURRITTE, MARIBEL PATIENT MEDICARE PART D (WNR) MEDICARE (M) PART D Jul 28, 2023 PART D [id number] SURRITTE, MARIBEL PATIENT Selected Encounter This section includes the information on record at NH for the Encounter. Date/Time Encounter Type Encounter Description Reason Provider Source Feb 09, 2024 09:45 AM OFFICE O/P EST MOD 30 MIN PRIMARY CARE/MEDICINE ICD-10-CM I10 Essential (primary) hypertension NEIDA BURROUGHS IHKaylen Encounter Template Text not used by [place] Assessments - Encounter Diagnoses This section includes the primary and secondary diagnoses documented for the Encounter. Date/Time Primary/Secondary Diagnosis Diagnosis Name Provider Source Feb 17, 2024 12:19 PM PRIMARY Essential (primary) hypertension STEFANO GARCIA [facility] Plan of Treatment: Future Appointments (+ 6 months) and Future Tests (+/- 45 days) The Plan of Treatment section includes future care activities for the patient from all [place] [facility]. This section includes future appointments and future orders which are active, pending or scheduled. Future Appointments This section includes appointments that were scheduled to occur 6 months from the date of the Encounter, up to a maximum of 20 appointments. The data comes from all [place] treatment facilities. Appointment Date/Time Appointment Type Appointme nt Facility Name Feb 12, 2024 08:45 AM AMBULATORY [place]IC[place] [facility] Feb 20, 2024 08:00 AM AMBULATORY - MEDICINE [facility] Mar 16, 2024 10:00 AM [facility] [place] [facility] Mar 28, 2024 08:00 AM [facility] - [place] [facility] Apr 09, 2024 09:30 AM AMBULATORY - MEDICINE [facility] Apr 26, 2024 11:00 AM [facility] - [place] [facility] Apr 27, 2024 08:45 AM AMBULATORY - MEDICINE [facility] Apr 28, 2024 11:30 AM [facility] [place] [facility] May 14, 2024 09:30 AM AMBULATORY - MEDICINE [facility] May 26, 2024 10:00 AM AM[facility]ORY - [place] [facility] Jun 28, 2024 09:45 AM AMBULATORY - MEDICINE [facility] Jun 28, 2024 10:00 AM AMBULATORY - MEDICINE [facility] Aug 02, 2024 01:40 PM [facility] [place] [facility] Active, Pending, and Scheduled Orders This section includes a listing of several types of active, pending, and scheduled orders, including clinic medications orders, diagnostic test orders, procedure orders and consult orders; where the start date of the order is 45 days before the date of the Encounter or 45 days after the date of theEncounter. The data comes from all [place] treatment facilities. Test Date/Time Test Type Test Details Facility Name Feb 02, 2024 12:00 AM Laboratory - Chemi stry Order TSH (MA-PB) GOLD/RED SST SERUM [facility] Feb 02, 2024 12:00 AM Laboratory - Chemi stry Order URINE ALBUMIN PROFILE-ih (PB) URINE,[facility] Feb 02, 2024 12:00 AM Laboratory - Chemi stry Order CBC BLOOD [facility] Lab Results: +/- 30 days of the encounter This section includes the Chemistry and Hematology Lab Results on record with NH for the patient. Radiology Reports and Pathology Reports are provided separately, in subsequent sections. Lab Results This section contains the Chemistry/Hematology Results that were resulted 30 days before or 30 daysafter the date of the Encounter. Date/Time Source Result Type Result - Unit Interpretation Reference Range Specimen Type Comment Jan 26, 2024 08:03 AM [facility] CPK PROFILE (PB) PLASMA Specimen Type: PLASMA No comment entered. Ordering Provider: FRANKY NASH Report Released Date/Time: Jan 09, 2024 05:51 AM Reporting Lab: [place] [facility] [address] [place] [address] Performing Lab: [place] [facility] [address] [place] [address] CPK 37 U/L 30-200 Jan 26, 2024 08:03 AM [facility] CHOLESTEROL PANEL (PB) PLASMA Specimen Type: P LASMA No comment entered. Ordering Provider: FRANKY NASH Report Released Date/Time: Jan 09, 2024 05:51 AM Reporting Lab: [place] [facility] [address] [place] [address] Performing Lab: [place] [facility] [address] [place] [address] CHOLESTEROL 103 mg/dL 0-200 TRIGLYCERIDE 27 mg/dL 0-150 CALCULATED LDL 51.7 mg/dL HDL(New) 45.9 mg/dL H >40 HDL % OF TOTAL CHOLESTEROL (PB) 44.6 >25 Jan 26, 2024 08:03 AM [facility] DIRECT LDL (MA-PB) PLASMA Specimen Type: PLASM A No comment entered. Ordering Provider: FRANKY NASH Report Released Date/Time: Jan 09, 2024 05:51 AM Reporting Lab: [place] [facility] [address] [place] [address] Performing Lab: [place] [facility] [address] [place] [address] DIRECT LDL 47.7 mg/dL 0-99.9 Jan 26, 2024 08:03 AM [facility] FOLATE (PB) SERUM Specimen Typ e: SERUM No comment entered. Ordering Provider: FRANKY NASH Report Released Date/Time: Jan 09, 2024 05:51 AM Reporting Lab: [place] [facility] [address] [place] [address] Performing Lab: [place] [facility] [address] [place] [address] FOLATE (PB) >20.0 ng/mL H 7-20 Jan 26, 2024 08:03 AM [facility] VITAMIN D, 25-HYDROXY SERUM Specimen Type: SE RUM No comment entered. Ordering Provider: FRANKY NASH Report Released Date/Time: Jan 09, 2024 05:51 AM Reporting Lab: [place] [facility] [address] [place] [address] Performing Lab: [place] [facility] [address] [place] [address] VITAMIN D, 25-HYDROXY 61.4 ng/mL 30-96 Jan 26, 2024 08:03 AM [facility] B12 SERUM Specimen Type: SERUM No comment entered. Ordering Provider: FRANKY NASH Report Released Date/Time: Jan 09, 2024 05:51 AM Reporting Lab: [place] [facility] [address] [place] [address] Performing Lab: [place] [facility] [address] [place] [address] B12 567 pg/mL 213-816 Jan 26, 2024 08:03 AM [facility] HGA1C BLOOD Specimen Type: BLOOD No comment entered. Ordering Provider: FRANKY NASH Report Released Date/Time: Jan 09, 2024 05:51 AM Reporting Lab: [place] [facility] [address] [place] [address] Performing Lab: [place] [facility] [address] [place] [address] HGA1C 8.6 H 4.0-6.0 Jan 26, 2024 08:03 AM [facility] COMPREHENSIVE METABOLIC PANEL PLASMA Specimen Type: PLASMA No comment entered. Ordering Provider: FRANKY NASH Report Released Date/Time: Jan 09, 2024 05:51 AM Reporting Lab: [place] [facility] [address] [place] [address] Performing Lab: [place] [facility] [address] [place] [address] CREATININE 1.01 mg/dL 0.7-1.3 UREA NITROGEN 11 [...] Height Weight Body Mass Index Source Feb 09, 2024 09:47 AM 98.1 60 148/50 18 97 199.1 29 [facility] Social History: Smoking Status (Most current) and Tobacco Use (All prior to encounter date) This section includes the most current, and the historical, smoking and tobacco- related health factors from the [place] facility where the Encounter took place. Current Smoking Status This section includes the most current smoking, or tobacco-related health factor, from the [place] facility where the Encounter took place. Date/Time Current Smoking Status Comment Maura ity Feb 02, 2024 08:30 AM VA-TOBACCO FORMER USER [facility] Tobacco Use History This section includes a history of the smoking, or tobacco-related health factors, that were collected on or before the date of the Encounter. The data comes from the [place] facility where the Encounter took place. Date/Time Smoking Status/Tobacco Use Comment F acility Feb 02, 2024 08:30 AM VA-TOBACCO QUIT 15 YRS OR MORE [facility] [place] [facility] Feb 17, 2023 10:30 AM VA-TOBACCO FORMER USER [facility] [place] [facility] Feb 17, 2023 10:30 AM VA-TOBACCO QUIT 15 YRS OR MORE [facility] [place] [facility] Feb 20, 2022 10:00 AM VA-TOBACCO FORMER USER [facility] Feb 20, 2022 10:00 AM VA-TOBACCO QUIT 15 YRS [place] MORE [place] [facility] Feb 17, 2019 10:44 AM VA-TOBACCO FORMER USER [facility] [facility] Feb 17, 2019 10:44 AM VA-TOBACCO QUIT 15 YRS OR MORE [facility] Feb 15, 2019 09:43 AM VA-TOBACCO FORMER USER [facility] [place] [facility] Feb 15, 2019 09:43 AM VA-TOBACCO QUIT 15 YRS OR MORE [facility] Apr 08, 2018 01:31 PM QUIT TOBACCO >7 YEARS AGO [place] [facility] Oct 28, 2017 08:48 AM QUIT TOBACCO >7 YEARS AGO [place] [facility] May 28, 2017 11:33 AM QUIT TOBACCO >7 YEARS AGO [place] [facility] May 17, 2008 08:50 AM QUIT TOBACCO >7 YEARS AGO [place] [facility] Oct 30, 2007 08:52 AM QUIT TOBACCO >7 YEARS AGO [place] [place] [place] [facility] Mar 09, 2007 08:13 AM QUIT TOBACCO >7 YEARS AGO [place] [facility] Jun 11, 2005 08:28 AM LIFETIME NON-TOBACCO USER [facility] Apr 08, 2005 10:40 AM CURRENT NON-TOBACC O USER-HX OF USE [facility] [facility] Oct 05, 2004 11:10 AM CURRENT NON-TOBACC O USER-HX OF USE [facility] [place] [facility] Jun 29, 2004 08:36 AM CURRENT NON-TOBACC O USER-HX OF USE [facility] [place] [facility] Dec 30, 2003 11:01 AM CURRENT NON-TOBACC O USER-HX OF [place] [facility] [place] [facility] Jul 15, 2003 11:11 AM CURRENT NON-TOBACC O USER-HX OF USE quit Jul 1998 [facility] [place] [facility] Dec 27, 2002 12:57 PM CURRENT NON-TOBACC O USER-HX OF USE [facility] Mar 31, 2002 10:19 AM CURRENT NON-TOBACC O USER-HX OF USE [facility] Sep 15, 2001 01:22 PM CURRENT NON-TOBACC O USER-HX OF USE [facility] Feb 16, 2001 03:11 PM CURRENT NON-TOBACC O USER-HX OF USE quit 2 yrs ago, 1 pk day [place] [facility] Encounter Notes: All associated encounter notes This section contains the clinical notes associated to the Encounter. Date/Time Encounter Note(s) Provider Source Feb 09, 2024 10:53 AM NURSING PROGRESS N OTE: LOCAL TITLE: NURSING NOTE PB STANDARD TITLE: NURSING PROGRESS NOTE DATE OF NOTE: FEB 09, 2024@10:53 ENTRY DATE: FEB 09, 2024@10:53:47 AUTHOR: STEFANO GARCIA EXP COSIGNER: URGENCY: STATUS: COMPLETED NURSING NOTE PB Has ADDENDA This is a 78 year old MALE with known Allergies as noted: Patient has answered NKA On the following Active Medications: Active Outpatient [...] REASON OR FOR TECHNICAL HELP PLEASE CALL [employer] DESK: -SPECIFIC PHONE NUMBER: ([phone]). 10) INSULIN SYRINGE 1ML 30G 12MM USE 1 SYRINGE UNDER THE ACTIVE (S) SKIN ONCE A DAY FOR USE WITH INSULIN TO CONTROL BLOOD SUGAR. 11) INSULIN,ASPART(EQV-NOVLG)10 0UN/ML FLXPEN INJECT 10 ACTIVE (S) UNITS UNDER [...] ITCHY RASH NEEDED. FOR EXTERNAL USE ONLY. C/C: Scheduled nurse visit for BP check with log. S: has log of BP values over last week. [place] indicates he is feeling well overall. Had a recent heart attack. Has followed up with Mansi Moreno with no meds changes. O/A: Please see above. Has followed up with Mansi Moreno [facility] with no changes in medication adjustment. Dawna has follow up on Friday with Dr Aguilar as well. BP values per home log.Out of 14 values 11 of them the systolic is greater than 140. Diastolic values are all less than 90. Lowest value 132/58 and highest value 168/68. HR all good upper 50's to 60's mostly. Gave copy for provider to review and placed copy in scanning folder. has been taking BP 1 hour post med intake in am. 25mg of Metoprolol with Losartan in am and 25mg metoprolol and Amlodipine in pm. Vital Signs: WNL except BP high today. 1st auto 169/66 2nd manual 156/56 and 3rd manual 148/50. Weight:199.1 pounds P: Discussed with Tana Burroughs who spoke with .After discussion will have continue with BP log and take log to upcoming appt with Dr Aguilar to see what he recommends. agreeable to plan. RTC:as scheduled sooner if needed /felisha/ [facility] Signed: 02/09/2024 11:45 02/09/2024 ADDENDUM STATUS: COMPLETED Per [facility] Directive 1605.06, wristband documentation: Patient wristband was removed and destroyed by (staff name) elissa and placed in the designated [employer] bin. /es/ STEFANO GARCIA RN [facility] Signed: 02/09/2024 11:46 [facility]
--- OUTSIDE RECORDS SUMMARY | 2024-02-20 03:00 | XMS_ITS | Encounter Summary ---
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 Name Role Phone NURANITHA Primary Care Provider Unavailabl e Insurance Providers: [...] OF SERVICE [facility]BP POS Sep 26, 2017 [id number] [phone] SURRITTMARIBEL Abdullahi PATIENT AETNA POINT OF SERVICE [facility]BP Sep 26, 2017 [id number] [phone] SURRITTMARIBEL Abdullahi PATIENT AETNA MEDICARE SECONDARY (NO B EXC) MHBP* Jul 28, 2017 [id number] SURRITTMARIBEL Abdullahi PATIENT AETNA (MAILHANDL ERS) MEDICARE SECONDARY (NO B EXC) [facility] Sep 26, 2017 [id number] [phone] RINARITTMARIBEL Abdullahi PATIENT AETNA-MHBP POINT OF SERVICE MHBP Jul 28, 2017 [id number] SURRITTE, MARIBEL PATIENT AETNA-MHBP POINT OF SERVICE [facility] Jul 28, 2017 [id number] [phone] SURRITTE, MARIBEL PATIENT [place] ([id number]) PRESCRIPT ION [id number] Jul 28, 2023 [id number] SURRITTE, MARIBEL PATIENT [place] ([id number]) PRESCRIPT ION [facility] Jul 28, 2017 [id number] [phone] SURRITTE, MARIBEL PATIENT [place] ([id number]) PRESCRIPT ION [facility] Jul 28, 2017 [id number] [phone] SURRITTE, MARIBEL PATIENT [place] ([id number]) RX PRESCRIPT ION [facility] Sep 26, 2017 [id number] [phone] SURRITTE, MARIBEL PATIENT MEDICARE ([facility]) MEDICARE () PART A May 28, 2008 PART A [id number] SURRITTE, MARIBEL PATIENT MEDICARE ([facility]) MEDICARE () PART A May 28, 2008 PART A [id number] SURRITTE, MARIBEL PATIENT MEDICARE ([facility]) MEDICARE () PART A May 28, 2008 PART A [id number] SURRITTE, MARIBEL PATIENT MEDICARE ([facility]) MEDICARE (M) PART A May 28, 2008 PART A [id number] [phone] SURRITTE, MARIBEL PATIENT MEDICARE (WN) MEDICARE () PART A May 28, 2008 PART A [id number] SURRITTE, MARIBEL PATIENT MEDICARE ([facility]) MEDICARE () PART A May 28, 2008 PART A [id number] [phone] SURRITTE, MARIBEL PATIENT MEDICARE PART D ([facility]) MEDICARE () PART D Jul 28, 2023 PART D [id number] SURRITTE, MARIBEL PATIENT Selected Encounter This section includes the information on record at NH for the Encounter. Date/Time Encounter Type Encounter Description Reason Provider Source Feb 20, 2024 08:00 AM PT EVAL HIGH COMPLEX 45 MIN PHYSICAL THERAPY ICD-10-CM R42 Dizziness and giddiness DARREL GALLARDO [facility] Encounter Template Text not used by [facility] Assessments - Encounter Diagnoses This section includes the primary and secondary diagnoses documented for the Encounter. Date/Time Primary/Secondary Diagnosis Diagnosis Name Provider Source Feb 27, 2024 02:00 PM PRIMARY Dizziness and giddiness MARSHALL GALLARDO [facility] Plan of Treatment: Future Appointments (+ 6 months) and Future Tests (+/- 45 days) The Plan of Treatment section includes future care activities for the patient from all [facility] This section includes future appointments and future orders which are active, pending or scheduled. Future Appointments This section includes appointments that were scheduled to occur 6 months from the date of the Encounter, up to a maximum of 20 appointments. The data comes from all [place] treatment facilities. Appointment Date/Time Appointment Type Appointme nt Facility Name Mar 16, 2024 10:00 AM AM[place]ULATORY [place] [facility] [place] Mar 28, 2024 08:00 AM AM[facility]ULATORY [place] [facility] [place] Apr 09, 2024 09:30 AM AMBULATORY - MEDICINE [facility] Apr 26, 2024 11:00 AM AM[facility]ULATORY - [place] [facility] [place] Apr 27, 2024 08:45 AM AMBULATORY - MEDICINE [facility] Apr 28, 2024 11:30 AM AM[facility]ULATORY - [place] [facility] [place] May 14, 2024 09:30 AM AMBULATORY - MEDICINE [facility] May 26, 2024 10:00 AM AM[facility]ULATORY - [place] [facility] [place] Jun 28, 2024 09:45 AM AMBULATORY - MEDICINE [facility] Jun 28, 2024 10:00 AM AMBULATORY - MEDICINE [facility] Aug 02, 2024 01:40 PM [facility] Active, Pending, and Scheduled Orders This [...] Laboratory - Chemi stry Order CBC BLOOD [facility] [place] Feb 02, 2024 12:00 AM Laboratory - Chemi stry Order TSH (MA-PB) GOLD/RED SST SERUM SP [facility] [place] Feb 02, 2024 12:00 AM Laboratory - Chemi stry Order URINE ALBUMIN PROFILE-ih (PB) URINE,RANDOM SP [facility] Lab Results: +/- 30 days of the [...] Type Comment Jan 26, 2024 08:[address] [facility] CPK PROFILE (PB) PLASMA Specimen Type: PLASMA No comment entered. Ordering Provider: FRANKY NASH Report Released Date/Time: Jan 09, 2024 05:51 AM Reporting Lab: [place] [facility] [place] [address] [place] [address] Performing Lab: [place] [facility] [place] [address] [place] [address] CPK 37 U/L 30-200 Jan 26, 2024 08:[address] [facility] CHOLESTEROL PANEL (PB) PLASMA Specimen Type: P LASMA No comment entered. Ordering Provider: FRANKY NASH Report Released Date/Time: Jan 09, 2024 05:51 AM Reporting Lab: [place] [facility] [address] [place] [address] Performing Lab[facility] [place] [facility] [address] [place] [address] CHOLESTEROL 103 mg/dL 0-200 TRIGLYCERIDE 27 mg/dL 0-150 CALCULATED LDL 51.7 mg/dL HDL(New) 45.9 mg/dL H >40 HDL % OF TOTAL CHOLESTEROL (PB) 44.6 >25 Jan 26, 2024 08:[address] [facility] DIRECT LDL (MA-PB) PLASMA Specimen Type: PLASM A No comment entered. Ordering Provider: FRANKY NASH Report Released Date/Time: Jan 09, 2024 05:51 AM Reporting Lab: [place] [facility] [address] [place] [address] Performing Lab: [place] [facility] [address] [place] [address] DIRECT LDL 47.7 mg/dL 0-99.9 Jan 26, 2024 08:03 AM [facility] FOLATE (PB) SERUM Specimen Typ e: SERUM No comment entered. Ordering Provider: FRANKY NASH Report Released Date/Time: Jan 09, 2024 05:51 AM Reporting Lab: [place] [facility] [address] [place] [address] Performing Lab: [place] [facility] [address] [place] [address] FOLATE (PB) >20.0 ng/mL H 7-20 Jan 26, 2024 08:03 AM [facility] VITAMIN D, 25-HYDROXY SERUM Specimen Type: SE RUM No comment entered. Ordering Provider: FRANKY NASH Report Released Date/Time: Jan 09, 2024 05:51 AM Reporting Lab: [place] [facility] [address] [place] [address] Performing Lab: [place] [facility] [address] [place] [address] VITAMIN D, 25-HYDROXY 61.4 ng/mL 30-96 Jan 26, 2024 08:[address] [facility] HGA1C BLOOD Specimen Type: BLOOD No comment entered. Ordering Provider: FRANKY NASH Report Released Date/Time: Jan 09, 2024 05:51 AM Reporting Lab: [place] [facility] [address] [place] [address] Performing Lab: [place] [facility] [address] [place] [address] HGA1C 8.6 H 4.0-6.0 Jan 26, 2024 08:03 AM [facility] [place] [facility] B12 SERUM Specimen Type: SERUM No comment entered. Ordering Provider: FRANKY NASH Report Released Date/Time: Jan 09, 2024 05:51 AM Reporting Lab: [place] [facility] [address] [place] [address] Performing Lab: [place] [facility] [address] [place] [address] B12 567 pg/mL 213-816 Jan 26, 2024 08:03 AM [facility] COMPREHENSIVE METABOLIC PANEL PLASMA Specimen Type: PLASMA No comment entered. Ordering Provider: FRANKY NASH Report Released Date/Time: Jan 09, 2024 05:51 AM Reporting Lab: [place] [facility] [place] [address] [place] [address] Performing Lab: [place] [facility] [address] [place] [address] CREATININE 1.01 mg/dL 0.7-1.3 UREA NITROGEN 11 [...] 16 U/L 8-40 EGFR (CKD-EPI 2020) 75 Social History: Smoking Status (Most current) and [...] Facil ity Feb 02, 2024 08:30 AM [place]-TOBACCO FORMER USER [facility] Tobacco Use History This section includes a history of the smoking, or tobacco-related health factors, that were collected on or before the date of the Encounter. The data comes from the [place] facility where the Encounter took place. Date/Time Smoking Status/Tobacco Use Comment F acility Feb 02, 2024 08:30 AM NH-TOBACCO QUIT 15 YRS OR MORE [facility] Feb 17, 2023 10:30 AM VA-TOBACCO FORMER USER [facility] Feb 17, 2023 10:30 AM VA-TOBACCO QUIT 15 YRS OR MORE [facility] Feb 20, 2022 10:00 AM VA-TOBACCO FORMER USER [facility] Feb 20, 2022 10:00 AM VA-TOBACCO QUIT 15 YRS OR MORE [facility] Feb 17, 2019 10:44 AM VA-TOBACCO FORMER USER [facility] Feb 17, 2019 10:44 AM VA-TOBACCO QUIT 15 YRS OR MORE [facility] Feb 15, 2019 09:43 AM VA-TOBACCO FORMER USER [facility] Feb 15, 2019 09:43 AM VA-TOBACCO QUIT 15 YRS OR MORE [facility] Apr 08, 2018 01:31 PM QUIT TOBACCO >7 YEARS AGO [facility] Oct 28, 2017 08:48 AM QUIT TOBACCO >7 YEARS AGO [facility] May 28, 2017 11:33 AM QUIT TOBACCO >7 YEARS AGO [facility] May 17, 2008 08:50 AM QUIT TOBACCO >7 YEARS AGO [facility] Oct 30, 2007 08:52 AM QUIT TOBACCO >7 YEARS AGO [facility] Mar 09, 2007 08:13 AM QUIT TOBACCO >7 YEARS AGO [facility] Jun 11, 2005 08:28 AM LIFETIME NON-TOBACCO USER [facility] Apr 08, 2005 10:40 AM CURRENT NON-TOBACC O USER-HX OF USE [facility] Oct 05, 2004 11:10 AM CURRENT NON-TOBACC O USER-HX OF USE [facility] Jun 29, 2004 08:36 AM CURRENT NON-TOBACC O USER-HX OF USE [facility] Dec 30, 2003 11:01 AM CURRENT NON-TOBACC O USER-HX OF USE [facility] Jul 15, 2003 11:11 AM CURRENT NON-TOBACC O USER-HX OF USE quit Jul 1998 [facility] Dec 27, 2002 12:57 PM CURRENT NON-TOBACC O USER-HX OF USE [facility] Mar 31, 2002 10:19 AM CURRENT NON-TOBACC O USER-HX OF USE [facility] Sep 15, 2001 01:22 PM CURRENT NON-TOBACC O USER-HX OF USE [facility] Feb 16, 2001 03:11 PM CURRENT NON-TOBACC O USER-HX OF USE quit 2 yrs ago, 1 pk day [facility] Encounter Notes: All associated encounter notes This section contains the clinical notes associated to the Encounter. Date/Time Encounter Note(s) Provider Source Feb 20, 2024 08:02 AM PHYSICAL THERAPY C ONSULT: LOCAL TITLE: PHYSICAL THERAPY CONSULTS PB STANDARD TITLE: PHYSICAL THERAPY CONSULT DATE OF NOTE: FEB 20, 2024@08:02 ENTRY DATE: FEB 20, 2024@08:03:04 AUTHOR: MARSHALL GALLARDO COSIGNER: URGENCY: STATUS: COMPLETED PHYSICAL THERAPY CONSULTS PB Has ADDENDA Diagnosis: Dizziness and Giddiness Subjective Patient presents with complaints of dizziness that has been going on for several years. He reports that his dizziness lasts sometimes all day. He reports that his symptoms increase with movement and subside with rest. He describes his symptoms as a feeling of uneasiness. He does have a history of cardiac pathologies and CVA. Patient's chief complaint is dizziness Pain rated currently as none; Discomfort is described as unsteadiness Symptoms increase with movement and decrease with seated rest Fall History: no recent falls, but several near falls Patient's goal is to decrease his dizziness Patient demonstrates potential to reach goal Patient currently lives with his Objective Vitals: BP 162/70 mmHg HR 62 bpm SaO2 96% Examination Posture: Patient demonstrates Neurological - Light touch: unremarkable - Deep tendon reflexes: unremarkable Gait Pattern: decrease step length, height, and luis 30 second sit to stand: 8 reps with BUE use Administered [employer]etti Performance Oriented Mobility Assessment: Bilateral upper extremity and lower extremity manual muscle test 4/5 grossly Cervical ROM screen: WFL Coordination: -finger to nose: pass -heel to limon: pass -quick pronation/supination: pass Vestibular ocular screen: smooth pursuit: pass saccades: pass VOR pass BPPV: bilateral posterior canal - negative bilateral horizontal canal - negative Modified CTSIB eyes open on stable: pass eyes closed on stable: fail eyes open on foam: pass eyes closed on foam: fail Objective COMMENTS: noted increase in dizziness symptoms with exertion, most notably with 30 second sit to stand test. Patient Education: Patient was encouraged to follow up with cardiac rehab. Assessment [place] presented to physical therapy with complaints of dizziness/imbalance. It was noted that he stated that his symptoms increased with exertion and decreased with rest. His symptoms presented the strongest with the 30 second sit to stand test and diminished with seated rest after several minutes. At this time his symptoms allude to being more cardiac in nature and referring provider was notified. At this time it will be evaluation only. [place] encouraged to keep his appointment with cardiac rehab. Complexity is high with evolving presentation. Plan Physical therapy evaluation only. Total Treatment Time: 58 minutes Visit 1 of 1 /felisha/ Marshall Gallardo PT, DPT [place] [facility] Signed: 02/20/2024 13:43 02/20/2024 ADDENDUM STATUS: COMPLETED Administered [employer] Mobility Assessment score: /isabela Gallardo PT, DPT [facility] Signed: 02/20/2024 13:44 MARSHALL GALLARDO [facility]
--- OUTSIDE RECORDS SUMMARY | 2024-04-09 04:30 | XMS_ITS | Encounter Summary ---
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 Name Role Phone LUIDMILA ANITHA Primary Care Provider Unavailabl e Insurance [...] OF SERVICE [facility] POS Sep 26, 2017 [id number] SURRITTMARIBEL Abdullahi PATIENT AETNA POINT OF SERVICE [facility] Sep 26, 2017 [id number] SURRITTMARIBEL Abdullahi PATIENT AETNA MEDICARE SECONDARY (NO B EXC) [facility]* Jul 28, 2017 [id number] [phone] SURRITTMARIBEL Abdullahi PATIENT AETNA (MAILHANDL ERS) MEDICARE SECONDARY (NO B EXC) [facility] Sep 26, 2017 [id number] RINARIMARIBEL INIGUEZ PATIENT AETNA-MHBP POINT OF SERVICE [facility] Jul 28, 2017 [id number] SURRITTE, MARIBEL PATIENT AETNA-MHBP POINT OF SERVICE [facility] Jul 28, 2017 [id number] [phone] SURRITTE, MARIBEL PATIENT [facility] ([id number]) PRESCRIPT ION [id number] Jul 28, 2023 [id number] SURRITTE, MARIBEL PATIENT [facility] ([id number]) PRESCRIPT ION [facility] Jul 28, 2017 [id number] SURRITTE, MARIBEL PATIENT [facility] ([id number]) PRESCRIPT ION [facility] Jul 28, 2017 [id number] SURRITTE, MARIBEL PATIENT [facility] ([id number]) RX PRESCRIPT ION [facility] Sep 26, 2017 [id number] [phone] SURRITTE, MARIBEL PATIENT MEDICARE ([facility]) MEDICARE (M) PART A May 28, 2008 PART A [id number] SURRITTE, MARIBEL PATIENT MEDICARE ([facility]) MEDICARE (M) PART A May 28, 2008 PART A [id number] SURRITTE, MARIBEL PATIENT MEDICARE ([facility]) MEDICARE (M) PART A May 28, 2008 PART A [id number] [phone] SURRITTE, MARIBEL PATIENT MEDICARE (WNR) MEDICARE (M) PART A May 28, 2008 PART A [id number] SURRITTE, MARIBEL PATIENT MEDICARE ([facility]) MEDICARE () PART A May 28, 2008 PART A [id number] [phone] SURRITTE, MARIBEL PATIENT MEDICARE ([facility]) MEDICARE (M) PART A May 28, 2008 PART A [id number] [phone] SURRITTE, MARIBEL PATIENT MEDICARE PART D (WNR) MEDICARE (M) PART D Jul 28, 2023 PART D [id number] [phone] SURRITTE, MARIBEL PATIENT Selected Encounter This section includes the information on record at [place] for the Encounter. Date/Time Encounter Type Encounter Description Reason Provider Source Apr 09, 2024 09:30 AM OFFICE O/P EST MOD 30 MIN PRIMARY CARE/MEDICINE ICD-10-CM K21.9 Gastro-esophageal reflux disease without esophagitis MICHELLE BURNETT Kaylen Encounter Template Text not used by [place] Assessments - Encounter Diagnoses This section includes the primary and secondary diagnoses documented for the Encounter. Date/Time Primary/Secondary Diagnosis Diagnosis Name Provider Source Apr 09, 2024 10:29 AM PRIMARY Gastro-esophageal reflux disease without esophagitis MICHELLE BURNETT [facility] Apr 09, 2024 10:29 AM SECONDARY Benign paroxysmal vertigo, unspecified ear MICHELLE BURNETT [facility] Apr 09, 2024 10:29 AM SECONDARY Other fatigue MICHELLE BURNETT [facility] Plan of Treatment: Future Appointments (+ 6 months) and Future Tests (+/- 45 days) The Plan of Treatment section includes future care activities for the patient from all [place] treatmentfacilities. This section includes future appointments and future orders which are active, pending or scheduled. Future Appointments This section includes appointments that were scheduled to occur 6 months from the date of the Encounter, up to a maximum of 20 appointments. The data comes from all [place] treatment facilities. Appointment Date/Time Appointment Type Appointme nt Facility Name Apr 26, 2024 11:00 AM AMBULATORY - MEDICINE [facility] Apr 27, 2024 08:45 AM AMBULATORY - MEDICINE [facility] Apr 28, 2024 11:30 AM AMBULATORY - [facility]IC[facility] May 14, 2024 09:30 AM AMBULATORY - MEDICINE [facility] May 26, 2024 10:00 AM AMBULATORY - [facility]IC[facility] Jun 28, 2024 09:45 AM AMBULATORY - MEDICINE [facility] Jun 28, 2024 10:00 AM AMBULATORY - MEDICINE [facility] Aug 02, 2024 01:40 PM AMBULATORY - [facility]IC[facility] Aug 23, 2024 08:00 AM AMBULATORY - [facility]IC[facility] Sep 08, 2024 09:30 AM AMBULATORY - [facility]IC[facility] Sep 30, 2024 10:30 AM AMBULATORY - MEDICINE [facility] Oct 01, 2024 03:00 PM AMBULATORY - MEDICINE [facility] Oct 05, 2024 11:30 AM AMBULATORY - MEDICINE [facility] Active, Pending, and Scheduled Orders This section includes a listing of several types of active, pending, and scheduled orders, including clinic medications orders, diagnostic test orders, procedure orders and consult orders; where the start date of the order is 45 days before the date of the Encounter or 45 days after the date of theEncounter. The data comes from all [facility] facilities. Test Date/Time Test Type Test Details Facility Name May 11, 2024 12:00 AM Laboratory - Chemistry Order CHOLESTEROL PANEL (PB) GREEN LI/HEP BLD/PLAS PLASMA [facility] May 11, 2024 12:00 AM Laboratory - Chemistry Order VITAMIN D, 25-HYDROXY GOLD/RED SST SERUM [facility] May 11, 2024 12:00 AM Laboratory - Chemistry Order DIRECT LDL (MA-PB) GREEN LI/HEP BLD/PLAS PLASMA [facility] May 11, 2024 12:00 AM Laboratory - Chemistry Order TROPONIN I GREEN LI/HEP BLD/PLAS PLASMA [facility] May 11, 2024 12:00 AM Laboratory - Chemistry Order COMPREHENSIVE METABOLIC PANEL GREEN LI/HEP BLD/PLAS PLASMA [facility] May 11, 2024 12:00 AM Laboratory - Chemistry Order FOLATE (PB) GOLD/RED SST SERUM [facility] May 11, 2024 12:00 AM Laboratory - Chemistry Order URINE ALBUMIN PROFILE-ih (PB) URINE,RANDOM [facility] May 11, 2024 12:00 AM Laboratory - Chemistry Order HGA1C BLOOD [facility] May 11, 2024 12:00 AM Laboratory - Chemistry Order B12 GOLD/RED SST SERUM [facility] Vital Signs: All taken on the encounter date This section contains inpatient and outpatient Vital Signs collected on the date of the Encounter. Date/Time Temperature Pulse Blood Pressure Respiratory Rate SP02 Pain Height Weight Body Mass Index Source Apr 09, 2024 09:17 AM 98.7 92 136/68 20 96 0 189.2 27 [facility] Social History: Smoking Status (Most current) and Tobacco Use (All prior to encounter date) This section includes the most current, and the historical, smoking and tobacco- related health factors from the [place] facility where the Encounter took place. Current Smoking Status This section includes the most current smoking, or tobacco-related health factor, from the [place] facility where the Encounter took place. Date/Time Current Smoking Status Comment Facil ity Feb 02, 2024 08:30 AM VA-TOBACCO QUIT 15 YRS OR MORE [facility] Tobacco Use History This section includes a history of the smoking, or tobacco-related health factors, that were collected on or before the date of the Encounter. The data comes from the [place] facility where the Encounter took place. Date/Time Smoking Status/Tobacco Use Comment F acility Feb 02, 2024 08:30 AM VA-TOBACCO QUIT 15 YRS OR MORE [facility] Feb 17, 2023 10:30 AM VA-TOBACCO FORMER USER [facility] Feb 17, 2023 10:30 AM VA-TOBACCO QUIT 15 YRS OR MORE [facility] Feb 20, 2022 10:00 AM VA-TOBACCO FORMER USER [facility] Feb 20, 2022 10:00 AM VA-TOBACCO QUIT 15 YRS OR MORE [facility] Feb 17, 2019 10:44 AM VA-TOBACCO FORMER USER [facility] Feb 17, 2019 10:44 AM VA-TOBACCO QUIT 15 YRS OR MORE [facility] Feb 15, 2019 09:43 AM VA-TOBACCO FORMER USER [facility] Feb 15, 2019 09:43 AM VA-TOBACCO QUIT 15 YRS OR MORE [facility] Apr 08, 2018 01:31 PM QUIT TOBACCO >7 YEARS AGO [facility] Oct 28, 2017 08:48 AM QUIT TOBACCO >7 YEARS AGO [facility] May 28, 2017 11:33 AM QUIT TOBACCO >7 YEARS AGO [facility] May 17, 2008 08:50 AM QUIT TOBACCO >7 YEARS AGO [facility] Oct 30, 2007 08:52 AM QUIT TOBACCO >7 YEARS AGO [facility] Mar 09, 2007 08:13 AM QUIT TOBACCO >7 YEARS AGO [facility] Jun 11, 2005 08:28 AM LIFETIME NON-TOBACCO USER [facility] Apr 08, 2005 10:40 AM CURRENT NON-TOBACC O USER-HX OF USE [facility] Oct 05, 2004 11:10 AM CURRENT NON-TOBACC O USER-HX OF USE [facility] Jun 29, 2004 08:36 AM CURRENT NON-TOBACC O USER-HX OF USE [facility] Dec 30, 2003 11:01 AM CURRENT NON-TOBACC O USER-HX OF USE [facility] Jul 15, 2003 11:11 AM CURRENT NON-TOBACC O USER-HX OF USE quit Jul 1998 [facility] Dec 27, 2002 12:57 PM CURRENT NON-TOBACC O USER-HX OF USE [facility] Mar 31, 2002 10:19 AM CURRENT NON-TOBACC O USER-HX OF USE [facility] Sep 15, 2001 01:22 PM CURRENT NON-TOBACC O USER-HX OF USE [facility] Feb 16, 2001 03:11 PM CURRENT NON-TOBACC O USER-HX OF USE quit 2 yrs ago, 1 pk day [facility] Encounter Notes: All associated encounter notes This section contains the clinical notes associated to the Encounter. Date/Time Encounter Note(s) Provider Source Jun 25, 2024 12:31 PM PRIMARY CARE MEDIC ATION MGT NOTE: LOCAL TITLE: MEDICATION RENEWAL/REFILL PB STANDARD TITLE: PRIMARY CARE MEDICATION MGT NOTE DATE OF NOTE: JUN 25, 2024@12:31 ENTRY DATE: JUN 25, 2024@12:32:05 AUTHOR: SANTOS THOMPSON COSIGNER: URGENCY: STATUS: COMPLETED MARIBEL ALCAZAR has contacted the Primary Care Clinic and is requesting that the following prescription(s) be renewed. The patient reports that he/she is currently LOW on his/her supply of medication. He/she is requesting a new supply be mailed by May MEDICATION REQUESTED: ALBUTEROL (NEB) SOLN,INHL 0.083% INHALE 1 VIAL (2.5MG/3ML) BY NEBULIZATION EVERY 6 HOURS DIRECTED NEEDED FOR BREATHING Quantity: 60 Refills: 5 Recall visit scheduled? Yes Future visits: 04/08/25 9:30 am PB-[facility] PACT [facility] [phone] ====== The following is informational only for those patients that are on long-term opiate therapy: Opioid Consent: No data available for: CONSENT FOR LONG-TERM OPIOIDS FOR PAIN No drugs in class: CN101 (OPIOID ANALGESICS) Last UDS: Collection DT Specimen Test Name Result Units Ref Range 02/10/2023 07:55 URINE CREATuF 35.33 mg/dL Benzodiazipines: No drugs in class: CN302 (BENZODIAZEPINE DERIVATIVE SEDATIVES/HYPNOTICS) /fleisha/ Santos Thompson ENTERTAINMENT & MEDIA CORRESPONDENT CAROL Wakefield [facility] Signed: 06/25/2024 12:32 Receipt Acknowledged By: 07/08/2024 06:24 /felisha/ NOÉ Smith, MSN, Carol Wakefield [facility] SANTOS THOMPSON [facility] May 24, 2024 02:57 PM TELEPHONE ENCOUNTE R NOTE: LOCAL TITLE: TELEPHONE NOTE STANDARD TITLE: TELEPHONE ENCOUNTER NOTE DATE OF NOTE: MAY 24, 2024@14:57 ENTRY DATE: MAY 24, 2024@14:58:03 AUTHOR: SANTOS THOMPSON EXP COSIGNER: URGENCY: STATUS: COMPLETED Received VM from Dawna Albarado's home health Nurse from [facility]. Message stated Dawna has been having some dizziness and BP has been running 97-105/60-65. Verena reports Dawna is taking Meclizine with not much relief. Contacted Dawna. Dawna states he is in cardiac rehab and BP is 90s/50s there and they have not expressed any concern. Dawna reports he has had this dizziness for 3 years and it is not new. Dawna reports his dizziness id random and does not coincide with his blood pressure and does not happen when changing positions like when he stands. Dawna reports he will be leaving for [place] on Friday and will be back on Jun.03. Dawna declines an appt with PACT provider at this time. Advised Tiff to stay hydrated and continue the Meclizine as ordered and continue to monitor hi BP and if the SBP is below 90or is symptomatic to report to the ER. Advised his Provider would be alerted o this note and he would be notified of any further recommendations. /felisha/ Santos Thompson RN BSN CAROL Wakefield [facility] Signed: 05/25/2024 07:04 Receipt Acknowledged By: 05/25/2024 07:29 /felisha/ NOÉ Smith, MSN, Carol Wakefield [facility] SANTOS THOMPSON [facility] Apr 09, 2024 09:21 AM PRIMARY CARE PROGR ESS NOTE: LOCAL TITLE: PRIMARY CARE CLINIC PROGRESS NOTE PB STANDARD TITLE: PRIMARY CARE PROGRESS NOTE DATE OF NOTE: APR 09, 2024@09:21 ENTRY DATE: APR 09, 2024@09:21:23 AUTHOR: MICHELLE BURNETT EXP COSIGNER: URGENCY: STATUS: COMPLETED This is a 78 year old MALE DS - Disabilities Eligibility: SERVICE CONNECTED 50% to 100% VERIFIED Total S/C %: 80 PARALYSIS OF SCIATIC NERVE 10% S/C DIABETES MELLITUS 60% S/C DEFORMITY OF THE PENIS 0% S/C PARALYSIS OF MEDIAN NERVE 10% S/C PARALYSIS OF MEDIAN NERVE 10% S/C PARALYSIS OF SCIATIC NERVE 10% S/C Chief Complaint (Reason for today's visit): Follow-up on dizziness History of Present Illness (Subjective): presented today for follow-up for dizziness only using scopolamine patches and they are working well states that he starts out in the morning dizzy and by noon he is much better and just enough dizziness to annoy him. But much improved. Tiff states saw podiatry here in town but they did not cut his nails and request consult for podiatry for Dr. RODRIGUEZ in [place]. Patient also states that he is having trouble with GERD currently taking Protonix 40 mg will increase it from once a day to twice a day and reassess in a couple months if he is improved from that. was seen a week ago and had a stent placed and has not started feeling better yet. Cardiology gave him the okay to go to [place] to see his children. And I also told him that it is a good idea to go see his children and stop worrying about all this. Allergies: Patient has answered NKA REVIEW OF SYSTEMS: HEENT: No visual or auditory symptoms. Continued dizziness RESPIRATORY: No shortness of breath, cough or sputum. GI: No abdominal pain, nausea, vomiting or bowel changes. MUSCULOSKELETAL: No muscle aches or pains. SKIN: No new rashes, no unhealing lesions, no moles. Nail fungus and nails need clipped : No urinary symptoms. PSYCH: Denies being depressed or anxious. VITALS: Temperature: 98.7 F [37.1 C] (04/09/2024 09:17) Respiratory Rate: 20 (04/09/2024 09:17) Pulse Rate: 92 (04/09/2024 09:17) Blood Pressure: 136/68 (04/09/2024 09:17) HT: 70 in [177.8 cm] (03/30/2019 14:05) WT: 189.2 lb. [85.82 kg] (04/09/2024 09:17) BMI: 27.2 96% (04/09/2024 09:17) PHYSICAL EXAM: General: NAD noted, A&Ox3, pleasant, appears stated age Resp: respirations even and unlabored Abdomen: Soft, non-distended, non-tender Ext: No clubbing, cyanosis, edema or obvious deformity Neuro: Grossly intact Psych: Affect normal, answers questions appropriately throughout visit On the following Active Medications: Active Outpatient [...] 200D NASAL INHL SPRAY 1 PUFF ACTIVE IN EACH NOSTRIL TWICE DAILY NEEDED FOR ALLERGIC RHINITIS. *PRIME BEFORE USE* 5) CALCIUM POLYCARBOPHIL 625MG TAB TAKE TWO TABLETS BY ACTIVE (S) MOUTH ONCE A DAY FOR FIBER 6) CARVEDILOL 3.125MG TAB TAKE ONE TABLET BY MOUTH TWICE ACTIVE A DAY TAKE WITH FOOD. 7) CLOPIDOGREL BISULFATE 75MG TAB TAKE ONE TABLET BY ACTIVE (S) MOUTH ONCE A DAY 8) DOCUSATE NA 100MG CAP TAKE ONE CAPSULE BY MOUTH THREE ACTIVE TIMES A DAY NEEDED TO SOFTEN STOOL. HOLD FOR LOOSE STOOL/DIARRHEA. 9) EMPAGLIFLOZIN 25MG TAB TAKE ONE-HALF TABLET BY MOUTH ACTIVE (S) ONCE A DAY FOR DIABETES 10) FLUTICASONE PROP 50MCG 120D NASAL INHL INSTILL 2 ACTIVE (S) SPRAYS IN NOSTRIL(S) ONCE A DAY FOR RHINITIS (MUST BE USED DIRECTED FOR MINIMUM OF 21 DAYS TO PROVIDE ADEQUATE BENEFITS) 11) GLUCOSE SENSOR MelodeoYLE BRADLEY 2 USE SENSOR EVERY ACTIVE (S) 2 WEEKS FOR BLOOD SUGAR MONITORING CHANGE SENSOR/SITE EVERY 14 DAYS. TO REPLACE SENSOR FOR ANY REASON OR FOR TECHNICAL HELP PLEASE CALL [employer] HELP DESK: -SPECIFIC PHONE NUMBER: ([phone]). 12) INSULIN SYRINGE 1ML 30G 12MM USE 1 SYRINGE UNDER THE ACTIVE (S) SKIN ONCE A DAY FOR USE WITH INSULIN TO CONTROL BLOOD SUGAR. 13) INSULIN,ASPART(EQV-NOVLG)100 UN/ML FLXPEN INJECT 10 ACTIVE (S) UNITS UNDER THE SKIN THREE TIMES A DAY BEFORE MEALS FOR BLOOD SUGAR CONTROL. ADMINISTER 10 MINUTES BEFORE FOOD DIRECTED. REFRIGERATE UN-OPENED PENS. DISCARD CARTRIDGE 28 DAYS AFTER OPENING. WILL REPLACE INSULIN REGULAR 14) INSULIN,GLARGINE-YFGN 100UNIT/ML INJ INJECT 50 UNITS ACTIVE (S) UNDER THE SKIN ONCE A DAY FOR DIABETES (AT SAME TIME EACH DAY) - (DISCARD ANY UNUSED PORTION 28 DAYS AFTER OPENING) 15) IPRATROPIUM BR 0.03% NASAL SPRAY USE 2 SPRAYS INTO ACTIVE (S) EACH NOSTRIL THREE TIMES A DAY NEEDED FOR ALLERGIES/NASAL SYMPTOMS. 16) LORATADINE 10MG TAB TAKE ONE TABLET BY MOUTH ONCE A ACTIVE (S) DAY FOR ALLERGIC RHINITIS ON EMPTY STOMACH 17) LOSARTAN 100MG TAB TAKE ONE TABLET BY MOUTH ONCE A ACTIVE (S) DAY TO LOWER BLOOD PRESSURE 18) MONTELUKAST NA 10MG TAB TAKE ONE TABLET BY MOUTH AT ACTIVE (S) BEDTIME FOR BREATHING 19) NEEDLE,PEN 31G,5MM USE 1 NEEDLE UNDER THE SKIN THREE ACTIVE (S) TIMES A DAY BEFORE MEALS WITH NOVOLOG FLEXPEN 20) PANTOPRAZOLE NA 40MG EC TAB TAKE ONE TABLET BY MOUTH ACTIVE (S) EVERY MORNING BEFORE A MEAL TO LOWER STOMACH ACID - TAKE 30 MINUTES BEFORE MEAL(S) 21) PREGABALIN 75MG ORAL CAP TAKE ONE CAPSULE BY MOUTH ACTIVE EVERY 12 HOURS *MAY CAUSE DROWSINESS* 22) SCOPOLAMINE 0.33MG/24HR (1MG/3DAY) PATCH APPLY 1 ACTIVE (S) PATCH TO SKIN SITE EVERY 72 HOURS FOR MOTION SICKNESS 23) TAMSULOSIN HCL 0.4MG CAP TAKE ONE CAPSULE BY MOUTH ACTIVE (S) EVERY EVENING APPROXIMATELY 30 MINUTES AFTER THE SAME MEAL EACH DAY (FOR PROSTATE) 24) TERBINAFINE HCL 1% CREAM APPLY LIGHTLY TO AFFECTED ACTIVE AREA(S) TWICE A DAY FOR FUNGAL SKIN INFECTION 25) TRIAMCINOLONE ACETONIDE 0.1% OINT APPLY LIGHTLY TO ACTIVE AFFECTED AREA(S) TWICE A DAY FOR CONTACT DERMATITIS TO AREAS OF ITCHY RASH NEEDED. FOR EXTERNAL USE ONLY. 1) Diabetes mellitus type 2 (SNOMED CT 02254052) 2) GERD - Gastro-esophageal reflux disease 3) Essential hypertension (SNOMED CT 19328467) 4) Chronic obstructive lung disease (SNOMED CT 39904069) 5) Sleep apnea syndrome 6) Allergic rhinitis (SNOMED CT 78737688) 7) HL - Hearing loss 8) Carotid artery stenosis 9) Hyponatremia 10) Obstructive sleep apnea (SNOMED CT 64915884) 11) Cerebral ischemia (SNOMED CT 771282563) 12) HLD - Hyperlipidemia 13) History of cholecystectomy 14) PVD - peripheral vascular disease 15) Benign prostatic hypertrophy with outflow obstruction 16) Vertigo 17) Cerebral infarction ===== MEDICATION RECONCILIATION: ACTIVE/ OUTPATIENT MEDICATIONS: MRT1 - Med Reconciliation INCLUDED IN THIS LIST: Alphabetical list of active outpatient prescriptions dispensed from this DE (local) and dispensed from another DE or DoD facility (remote) as well as inpatient orders (local pending and active), local clinic medications, locally documented non-VA medications, and local prescriptions that have or been discontinued in the past 90 days. Non-VA Meds Last Documented On: Nov 13, 2017 NOTE The display of VA prescriptions dispensed from another DE or [facility] facility (remote) is limited to active outpatient prescription entries matched to National Drug File at the originating site and may not include some items such as investigational drugs, compounds, etc. NOT INCLUDED IN THIS LIST: Medications self-entered by the patient into personal health records (i.e. [employer]) are NOT included in this list. Non-VA medications documented outside this DE, remote inpatient orders (regardless of status) and remote clinic medications are NOT included in this list. The patient and provider must always discuss medications the patient is taking, regardless of where the medication was dispensed or obtained. OUTPT AMLODIPINE BESYLATE 10MG TAB (Status = Active/Suspended) TAKE ONE TABLET BY MOUTH ONCE A DAY FOR HEART/BLOOD PRESSURE Rx# [id number] Last Released: 02/02/24 Qty/Days Supply: Rx Expiration Date: 09/04/24 Refills Remainin OUTPT ASPIRIN 81MG EC TAB (Status = Active/Suspended) TAKE ONE TABLET BY MOUTH ONCE A DAY FOR HEART OR CIRCULATION. TAKE WITH FOOD. Rx# [id number] Last Released: 03/25/24 Qty/Days Supply: 120/90 Rx Expiration Date: 09/04/24 Refills Remainin OUTPT ATORVASTATIN CALCIUM 40MG TAB (Status = Active/Suspended) TAKE ONE TABLET BY MOUTH ONCE A DAY Rx# [id number] Last Released: 03/09/24 Qty/Days Supply: 90/ Rx Expiration Date: 12/29/24 Refills Remainin OUTPT AZELASTINE 137MCG/SPRAY 200D NASAL INHL (Status = Active) SPRAY 1 PUFF IN EACH NOSTRIL TWICE DAILY NEEDED FOR ALLERGIC RHINITIS. *PRIME BEFORE USE* Rx# [id number] Last Released: 02/12/24 Qty/Days Supply: 08/26 Rx Expiration Date: 09/04/24 Refills Remainin OUTPT CALCIUM POLYCARBOPHIL 625MG TAB (Status = Active/Suspended) TAKE TWO TABLETS BY MOUTH ONCE A DAY FOR FIBER Rx# [id number] Last Released: 03/04/24 Qty/Days Supply: 180 Rx Expiration Date: 09/04/24 Refills Remainin OUTPT CARVEDILOL 3.125MG TAB (Status = Active) TAKE ONE TABLET BY MOUTH TWICE A DAY TAKE WITH FOOD. Rx# [id number] Last Released: 02/21/24 Qty/Days Supply: 180 Rx Expiration Date: 05/17/24 Refills Remainin OUTPT CLOPIDOGREL BISULFATE 75MG TAB (Status = Active/Suspended) TAKE ONE TABLET BY MOUTH ONCE A DAY Rx# [id number] Last Released: 04/03/24 Qty/Days Supply: Rx Expiration Date: 03/31/25 Refills Remainin OUTPT DOCUSATE NA 100MG CAP (Status = Active) TAKE ONE CAPSULE BY MOUTH THREE TIMES A DAY NEEDED TO SOFTEN STOOL. HOLD FOR LOOSE STOOL/DIARRHEA. Rx# [id number] Last Released: 01/12/24 Qty/Days Supply: 300/ Rx Expiration Date: 05/19/24 Refills Remainin OUTPT EMPAGLIFLOZIN 25MG TAB (Status = Active/Suspended) TAKE ONE-HALF TABLET BY MOUTH ONCE A DAY FOR DIABETES Rx# [id number] Last Released: 02/04/24 Qty/Days Supply: 45 Rx Expiration Date: 02/02/25 Refills Remainin Indication: FOR DIABETES OUTPT FLUTICASONE PROP 50MCG 120D NASAL INHL (Status = Active/Suspended) INSTILL 2 SPRAYS IN NOSTRIL(S) ONCE A DAY FOR RHINITIS (MUST BE USED DIRECTED FOR MINIMUM OF 21 DAYS TO PROVIDE ADEQUATE BENEFITS) Rx# [id number] Last Released: 03/25/24 Qty/Days Supply: Rx Expiration Date: 09/04/24 Refills Remainin Indication: FOR RHINITIS OUTPT INSULIN,ASPART(EQV-NOVLG)100 UN/ML FLXPEN (Status = Active/Suspended) INJECT 10 UNITS UNDER THE SKIN THREE TIMES A DAY BEFORE MEALS FOR BLOOD SUGAR CONTROL. ADMINISTER 10 MINUTES BEFORE FOOD DIRECTED. REFRIGERATE UN-OPENED PENS. DISCARD CARTRIDGE 28 DAYS AFTER OPENING. WILL REPLACE INSULIN REGULAR Rx# [id number] Last Released: 01/19/24 Qty/Days Supply: Rx Expiration Date: 09/04/24 Refills Remainin OUTPT INSULIN,GLARGINE-YFGN 100UNIT/ML INJ (Status = Active/Suspended) INJECT 50 UNITS UNDER THE SKIN ONCE A DAY FOR DIABETES (AT SAME TIME EACH DAY) - (DISCARD ANY UNUSED PORTION 28 DAYS AFTER OPENING) Rx# [id number] Last Released: 02/02/24 Qty/Days Supply: Rx Expiration Date: 09/04/24 Refills Remainin Indication: FOR DIABETES OUTPT IPRATROPIUM BR 0.03% NASAL SPRAY (Status = Active/Suspended) USE 2 SPRAYS INTO EACH NOSTRIL THREE TIMES A DAY NEEDED FOR ALLERGIES/NASAL SYMPTOMS. Rx# [id number] Last Released: 03/22/24 Qty/Days Supply: Rx Expiration Date: 09/04/24 Refills Remainin OUTPT LORATADINE 10MG TAB (Status = Active/Suspended) TAKE ONE TABLET BY MOUTH ONCE A DAY FOR ALLERGIC RHINITIS ON EMPTY STOMACH Rx# [id number] Last Released: 03/25/24 Qty/Days Supply: Rx Expiration Date: 09/04/24 Refills Remainin Indication: FOR ALLERGIC RHINITIS OUTPT LOSARTAN 100MG TAB (Status = Active/Suspended) TAKE ONE TABLET BY MOUTH ONCE A DAY TO LOWER BLOOD PRESSURE Rx# [id number] Last Released: 02/19/24 Qty/Days Supply: Rx Expiration Date: 09/04/24 Refills Remainin OUTPT METOPROLOL TARTRATE 50MG TAB (Status = Discontinued) TAKE ONE-HALF TABLET BY MOUTH TWICE A DAY FOR HEART/BLOOD PRESSURE. TAKE WITH OR IMMEDIATELY FOLLOWING FOOD. Rx# [id number] Last Released: 12/23/23 Qty/Days Supply: Rx Expiration Date: 09/04/24 Refills Remainin OUTPT MONTELUKAST NA 10MG TAB (Status = Active/Suspended) TAKE ONE TABLET BY MOUTH AT BEDTIME FOR BREATHING Rx# [id number] Last Released: 03/09/24 Qty/Days Supply: Rx Expiration Date: 09/04/24 Refills Remainin Indication: FOR BREATHING OUTPT PANTOPRAZOLE NA 40MG EC TAB (Status = Active/Suspended) TAKE ONE TABLET BY MOUTH EVERY MORNING BEFORE A MEAL TO LOWER STOMACH ACID - TAKE 30 MINUTES BEFORE MEAL(S) Rx# [id number] Last Released: 03/20/24 Qty/Days' Supply: Rx Expiration Date: 09/04/24 Refills Remainin OUTPT PREGABALIN 75MG ORAL CAP (Status = Active) TAKE ONE CAPSULE BY MOUTH EVERY 12 HOURS *MAY CAUSE DROWSINESS* Rx# [id number] Last Released: 02/20/24 Qty/Days' Supply: 60 Rx Expiration Date: 04/09/24 Refills Remainin OUTPT SCOPOLAMINE 0.33MG/24HR (1MG/3DAY) PATCH (Status = Active/Suspended) APPLY 1 PATCH TO SKIN SITE EVERY 72 HOURS FOR MOTION SICKNESS Rx# [id number] Last Released: 02/25/24 Qty/Days' Supply: Rx Expiration Date: 02/20/25 Refills Remainin Indication: FOR MOTION SICKNESS OUTPT TAMSULOSIN HCL 0.4MG CAP (Status = Active/Suspended) TAKE ONE CAPSULE BY MOUTH EVERY EVENING APPROXIMATELY 30 MINUTES AFTER THE SAME MEAL EACH DAY (FOR PROSTATE) Rx# [id number] Last Released: 02/03/24 Qty/Days' Supply: Rx Expiration Date: 09/04/24 Refills Remainin OUTPT TERBINAFINE HCL 1% CREAM (Status = Active) APPLY LIGHTLY TO AFFECTED AREA(S) TWICE A DAY FOR FUNGAL SKIN INFECTION Rx# [id number] Last Released: 08/07/23 Qty/Days' Supply: 120/ Rx Expiration Date: 05/28/24 Refills Remainin Indication: FOR FUNGAL SKIN INFECTION OUTPT TRIAMCINOLONE ACETONIDE 0.1% OINT (Status = Active) APPLY LIGHTLY TO AFFECTED AREA(S) TWICE A DAY FOR CONTACT DERMATITIS TO AREAS OF ITCHY RASH NEEDED. FOR EXTERNAL USE ONLY. Rx# [id number] Last Released: 03/31/24 Qty/Days' Supply: Rx Expiration Date: 12/12/24 Refills Remainin Indication: FOR CONTACT DERMATITIS SUPPLIES OUTPT GLUCOSE SENSOR FREESTYLE BRADLEY 2 (Status = Discontinued) USE SENSOR EVERY 2 WEEKS FOR BLOOD SUGAR MONITORING CHANGE SENSOR/SITE EVERY 14 DAYS. TO REPLACE SENSOR FOR ANY REASON OR FOR TECHNICAL HELP PLEASE CALL [employer] DESK: -SPECIFIC PHONE NUMBER: [phone] Brailler). Rx# [id number] Last Released: 03/10/24 Qty/Days' Supply: 09/24 Rx Expiration Date: 10/22/24 Refills Remainin Indication: FOR BLOOD SUGAR MONITORING OUTPT GLUCOSE SENSOR FREESTYLE BRADLEY 2 (Status = Active/Suspended) USE SENSOR EVERY 2 WEEKS FOR BLOOD SUGAR MONITORING CHANGE SENSOR/SITE EVERY 14 DAYS. TO REPLACE SENSOR FOR ANY REASON OR FOR TECHNICAL HELP PLEASE CALL [employer] DESK: -SPECIFIC PHONE NUMBER: [phone] Brailler). Rx# [id number] Last Released: 04/08/24 Qty/Days' Supply: 09/24 Rx Expiration Date: 03/11/25 Refills Remainin Indication: FOR BLOOD SUGAR MONITORING OUTPT INSULIN SYRINGE 1ML 30G 12MM (Status = Active/Suspended) USE 1 SYRINGE UNDER THE SKIN ONCE A DAY FOR USE WITH INSULIN TO CONTROL BLOOD SUGAR. Rx# [id number] Last Released: 02/20/24 Qty/Days' Supply: 100/90 Rx Expiration Date: 09/04/24 Refills Remainin OUTPT NEEDLE,PEN 31G,5MM (Status = Active/Suspended) USE 1 NEEDLE UNDER THE SKIN THREE TIMES A DAY BEFORE MEALS WITH NOVOLOG FLEXPEN Rx# [id number] Last Released: 03/25/24 Qty/Days' Supply: 300/90 Rx Expiration Date: 09/04/24 Refills Remainin PHARMACY TERMS AND POSSIBLE PATIENT ACTIONS INPT = DE inpatient order IV = DE intravenous medication OUTPT = DE outpatient prescription PHARMACY POSSIBLE PATIENT TERMS EXPLANATION ACTIONS -------- ---- ACTIVE A prescription that can be If you have refills, filled at the local [place] pharmacy. you may request a refill of this prescription from your [facility] pharmacy. CLINIC A medication you received during If you have questions a visit to a [place] clinic or about this medication emergency department. contact your VA healthcare team. DISCONTINUED A prescription your provider has Contact your VA stopped. It is no longer healthcare team if you available to be sent to you or need more of this picked up at the [place] pharmacy medication. window. A prescription which is [...] the VA. Or, it may be an [id number]-xeshive (OTC), herbal, dietary supplements or sample medication. [...] this medication now. you run out. DISCONTINUED: No changes ADDED/CHANGES: Will increase Protonix NON-VA MEDICATIONS NOT LISTED ABOVE (List, including Herbals and OTC): Reviewed with patient/family members. Copy given to patient. Patient verbalized understanding? Yes ===== ASSESSMENT/IMPRESSION: Dizziness -current Fatigue -current Onychomycosis -current GERD -current PLAN OF CARE: Dizziness plan to continue scopolamine patches Fatigue plan to continue current regimen taking it easy and slowly progressing Onychomycosis plan to send place podiatry consult for Dr. Campbell in [place], plan new shoes and socks. GERD plan to increase pantoprazole twice daily Follow-up: _6_ months and/or as needed and keep regularly [...] Medications Reconciled. Time spent 30 minutes. Michelle UMANZOR-[facility] CB APR Float /es/ NOÉ Smith, MSN, Carol Golden [facility] Signed: 04/09/2024 10:28 MICHELLE BURNETT [facility] Apr 09, 2024 09:17 AM PRIMARY CARE NURSI NG NOTE: LOCAL TITLE: PRIMARY CARE NURSING PROGRESS NOTE (TEXT) NURSING P STANDARD TITLE: PRIMARY CARE NURSING NOTE DATE OF NOTE: APR 09, 2024@09:17 ENTRY DATE: APR 09, 2024@09:18:04 AUTHOR: FRANCIS MAHER EXP COSIGNER: URGENCY: STATUS: COMPLETED Established Patient MARIBEL ALCAZAR IS A 78 YEAR OLD MALE BEING SEEN IN CLINIC APR 09, 2024. = = REASON FOR VISIT: Here for 3 month follow up on chronic health issues. Reports he had another stent done in February. Had been to see PIPE BOWLS PAINT TRIMMER at cardio on a friday and she did not like the look of his enzymes so they did angiogram on that following friday and the previous area that was opened had clogged again and Dr Buckley placed stent this time. Tiff states he feels blah from it all and cardio is aware and told him it would just take time. He continues to have vertigo. He states he has deviated septum and would like to return to Dr Lucio in [facility], he had put off dealing with the deviated septum due to his other issues.. now ready to proceed. Are you receiving care any where other than the [facility]? No HEALTH AND SURGICAL HISTORY: Does patient report using home oxygen? CURRENT ACTIVE MEDICATIONS FOR REVIEW: Allergies/ADRs (Tool #5) FACILITY ALLERGY/ADR -------- [facility] NO KNOWN ALLERGIES [facility] No Known Allergies [facility] NO KNOWN ALLERGIES Med. Reconciliation (Tool #1) INCLUDED IN THIS LIST: Alphabetical list of active outpatient prescriptions dispensed from this DE (local) and dispensed from another DE or [facility] facility (remote) as well as inpatient orders (local pending and active), local clinic medications, locally documented non-VA medications, and local prescriptions that have or been discontinued in the past 90 days. Non-VA Meds Last Documented On: Nov 13, 2017 NOTE The display of VA prescriptions dispensed from another DE or [facility] facility (remote) is limited to active outpatient prescription entries matched to National Drug File at the originating site and may not include some items such as investigational drugs, compounds, etc. NOT INCLUDED IN THIS LIST: Medications self-entered by the patient into personal health records (i.e. [employer]) are NOT included in this list. Non-VA medications documented outside this DE, remote inpatient orders (regardless of status) and remote clinic medications are NOT included in this list. The patient and provider must always discuss medications the patient is taking, regardless of where the medication was dispensed or obtained. OUTPT AMLODIPINE BESYLATE 10MG TAB (Status = Active/Suspended) TAKE ONE TABLET BY MOUTH ONCE A DAY FOR HEART/BLOOD PRESSURE Rx# [id number] Last Released: 02/02/24 Qty/Days Supply: Rx Expiration Date: 09/04/24 Refills Remainin OUTPT ASPIRIN 81MG EC TAB (Status = Active/Suspended) TAKE ONE TABLET BY MOUTH ONCE A DAY FOR HEART OR CIRCULATION. TAKE WITH FOOD. Rx# [id number] Last Released: 03/25/24 Qty/Days Supply: 120/90 Rx Expiration Date: 09/04/24 Refills Remainin OUTPT ATORVASTATIN CALCIUM 40MG TAB (Status = Active/Suspended) TAKE ONE TABLET BY MOUTH ONCE A DAY Rx# [id number] Last Released: 03/09/24 Qty/Days Supply: 90/90 Rx Expiration Date: 12/29/24 Refills Remainin OUTPT AZELASTINE 137MCG/SPRAY 200D NASAL INHL (Status = Active) SPRAY 1 PUFF IN EACH NOSTRIL TWICE DAILY NEEDED FOR ALLERGIC RHINITIS. *PRIME BEFORE USE* Rx# [id number] Last Released: 02/12/24 Qty/Days Supply: 08/26 Rx Expiration Date: 09/04/24 Refills Remainin OUTPT CALCIUM POLYCARBOPHIL 625MG TAB (Status = Active/Suspended) TAKE TWO TABLETS BY MOUTH ONCE A DAY FOR FIBER Rx# [id number] Last Released: 03/04/24 Qty/Days Supply: 180/ Rx Expiration Date: 09/04/24 Refills Remainin OUTPT CARVEDILOL 3.125MG TAB (Status = Active) TAKE ONE TABLET BY MOUTH TWICE A DAY TAKE WITH FOOD. Rx# [id number] Last Released: 02/21/24 Qty/Days Supply: 180/90 Rx Expiration Date: 05/17/24 Refills Remainin OUTPT CLOPIDOGREL BISULFATE 75MG TAB (Status = Active/Suspended) TAKE ONE TABLET BY MOUTH ONCE A DAY Rx# [id number] Last Released: 04/03/24 Qty/Days Supply: 90/ Rx Expiration Date: 03/31/25 Refills Remainin OUTPT DOCUSATE NA 100MG CAP (Status = Active) TAKE ONE CAPSULE BY MOUTH THREE TIMES A DAY NEEDED TO SOFTEN STOOL. HOLD FOR LOOSE STOOL/DIARRHEA. Rx# [id number] Last Released: 01/12/24 Qty/Days Supply: 300/90 Rx Expiration Date: 05/19/24 Refills Remainin OUTPT EMPAGLIFLOZIN 25MG TAB (Status = Active/Suspended) TAKE ONE-HALF TABLET BY MOUTH ONCE A DAY FOR DIABETES Rx# [id number] Last Released: 02/04/24 Qty/Days Supply: 45/ Rx Expiration Date: 02/02/25 Refills Remainin Indication: FOR DIABETES OUTPT FLUTICASONE PROP 50MCG 120D NASAL INHL (Status = Active/Suspended) INSTILL 2 SPRAYS IN NOSTRIL(S) ONCE A DAY FOR RHINITIS (MUST BE USED DIRECTED FOR MINIMUM OF 21 DAYS TO PROVIDE ADEQUATE BENEFITS) Rx# [id number] Last Released: 03/25/24 Qty/Days Supply: Rx Expiration Date: 09/04/24 Refills Remainin Indication: FOR RHINITIS OUTPT INSULIN,ASPART(EQV-NOVLG)100 UN/ML FLXPEN (Status = Active/Suspended) INJECT 10 UNITS UNDER THE SKIN THREE TIMES A DAY BEFORE MEALS FOR BLOOD SUGAR CONTROL. ADMINISTER 10 MINUTES BEFORE FOOD DIRECTED. REFRIGERATE UN-OPENED PENS. DISCARD CARTRIDGE 28 DAYS AFTER OPENING. WILL REPLACE INSULIN REGULAR Rx# [id number] Last Released: 01/19/24 Qty/Days Supply: Rx Expiration Date: 09/04/24 Refills Remainin OUTPT INSULIN,GLARGINE-YFGN 100UNIT/ML INJ (Status = Active/Suspended) INJECT 50 UNITS UNDER THE SKIN ONCE A DAY FOR DIABETES (AT SAME TIME EACH DAY) - (DISCARD ANY UNUSED PORTION 28 DAYS AFTER OPENING) Rx# [id number] Last Released: 02/02/24 Qty/Days Supply: Rx Expiration Date: 09/04/24 Refills Remainin Indication: FOR DIABETES OUTPT IPRATROPIUM BR 0.03% NASAL SPRAY (Status = Active/Suspended) USE 2 SPRAYS INTO EACH NOSTRIL THREE TIMES A DAY NEEDED FOR ALLERGIES/NASAL SYMPTOMS. Rx# [id number] Last Released: 03/22/24 Qty/Days Supply: Rx Expiration Date: 09/04/24 Refills Remainin OUTPT LORATADINE 10MG TAB (Status = Active/Suspended) TAKE ONE TABLET BY MOUTH ONCE A DAY FOR ALLERGIC RHINITIS ON EMPTY STOMACH Rx# [id number] Last Released: 03/25/24 Qty/Days Supply: Rx Expiration Date: 09/04/24 Refills Remainin Indication: FOR ALLERGIC RHINITIS OUTPT LOSARTAN 100MG TAB (Status = Active/Suspended) TAKE ONE TABLET BY MOUTH ONCE A DAY TO LOWER BLOOD PRESSURE Rx# [id number] Last Released: 02/19/24 Qty/Days Supply: Rx Expiration Date: 09/04/24 Refills Remainin OUTPT METOPROLOL TARTRATE 50MG TAB (Status = Discontinued) TAKE ONE-HALF TABLET BY MOUTH TWICE A DAY FOR HEART/BLOOD PRESSURE. TAKE WITH OR IMMEDIATELY FOLLOWING FOOD. Rx# [id number] Last Released: 12/23/23 Qty/Days Supply: Rx Expiration Date: 09/04/24 Refills Remainin OUTPT MONTELUKAST NA 10MG TAB (Status = Active/Suspended) TAKE ONE TABLET BY MOUTH AT BEDTIME FOR BREATHING Rx# [id number] Last Released: 03/09/24 Qty/Days Supply: Rx Expiration Date: 09/04/24 Refills Remainin Indication: FOR BREATHING OUTPT PANTOPRAZOLE NA 40MG EC TAB (Status = Active/Suspended) TAKE ONE TABLET BY MOUTH EVERY MORNING BEFORE A MEAL TO LOWER STOMACH ACID - TAKE 30 MINUTES BEFORE MEAL(S) Rx# [id number] Last Released: 03/20/24 Qty/Days Supply: Rx Expiration Date: 09/04/24 Refills Remainin OUTPT PREGABALIN 75MG ORAL CAP (Status = Active) TAKE ONE CAPSULE BY MOUTH EVERY 12 HOURS *MAY CAUSE DROWSINESS* Rx# [id number] Last Released: 02/20/24 Qty/Days Supply: Rx Expiration Date: 04/09/24 Refills Remainin OUTPT SCOPOLAMINE 0.33MG/24HR (1MG/3DAY) PATCH (Status = Active/Suspended) APPLY 1 PATCH TO SKIN SITE EVERY 72 HOURS FOR MOTION SICKNESS Rx# [id number] Last Released: 02/25/24 Qty/Days Supply: Rx Expiration Date: 02/20/25 Refills Remainin Indication: FOR MOTION SICKNESS OUTPT TAMSULOSIN HCL 0.4MG CAP (Status = Active/Suspended) TAKE ONE CAPSULE BY MOUTH EVERY EVENING APPROXIMATELY 30 MINUTES AFTER THE SAME MEAL EACH DAY (FOR PROSTATE) Rx# [id number] Last Released: 02/03/24 Qty/Days Supply: Rx Expiration Date: 09/04/24 Refills Remainin OUTPT TERBINAFINE HCL 1% CREAM (Status = Active) APPLY LIGHTLY TO AFFECTED AREA(S) TWICE A DAY FOR FUNGAL SKIN INFECTION Rx# [id number] Last Released: 08/07/23 Qty/Days Supply: 120/90 Rx Expiration Date: 05/28/24 Refills Remainin Indication: FOR FUNGAL SKIN INFECTION OUTPT TRIAMCINOLONE ACETONIDE 0.1% OINT (Status = Active) APPLY LIGHTLY TO AFFECTED AREA(S) TWICE A DAY FOR CONTACT DERMATITIS TO AREAS OF ITCHY RASH NEEDED. FOR EXTERNAL USE ONLY. Rx# [id number] Last Released: 03/31/24 Qty/Days Supply: 80/30 Rx Expiration Date: 12/12/24 Refills Remainin Indication: FOR CONTACT DERMATITIS SUPPLIES OUTPT GLUCOSE SENSOR FREESTYLE BRADLEY 2 (Status = Discontinued) USE SENSOR EVERY 2 WEEKS FOR BLOOD SUGAR MONITORING CHANGE SENSOR/SITE EVERY 14 DAYS. TO REPLACE SENSOR FOR ANY REASON OR FOR TECHNICAL HELP PLEASE CALL [employer]: -SPECIFIC PHONE NUMBER: [phone] Brailler). Rx# [id number] Last Released: 03/10/24 Qty/Days Supply: 09/24 Rx Expiration Date: 10/22/24 Refills Remainin Indication: FOR BLOOD SUGAR MONITORING OUTPT GLUCOSE SENSOR FREESTYLE BRADLEY 2 (Status = Active/Suspended) USE SENSOR EVERY 2 WEEKS FOR BLOOD SUGAR MONITORING CHANGE SENSOR/SITE EVERY 14 DAYS. TO REPLACE SENSOR FOR ANY REASON OR FOR TECHNICAL HELP PLEASE CALL [employer] DESK: -SPECIFIC PHONE NUMBER: [phone] Brailler). Rx# [id number] Last Released: 04/08/24 Qty/Days Supply: 09/24 Rx Expiration Date: 03/11/25 Refills Remainin Indication: FOR BLOOD SUGAR MONITORING OUTPT INSULIN SYRINGE 1ML 30G 12MM (Status = Active/Suspended) USE 1 SYRINGE UNDER THE SKIN ONCE A DAY FOR USE WITH INSULIN TO CONTROL BLOOD SUGAR. Rx# [id number] Last Released: 02/20/24 Qty/Days Supply: 100/90 Rx Expiration Date: 09/04/24 Refills Remainin OUTPT NEEDLE,PEN 31G,5MM (Status = Active/Suspended) USE 1 NEEDLE UNDER THE SKIN THREE TIMES A DAY BEFORE MEALS WITH NOVOLOG FLEXPEN Rx# [id number] Last Released: 03/25/24 Qty/Days Supply: 300/90 Rx Expiration Date: 09/04/24 Refills Remainin PHARMACY TERMS AND POSSIBLE PATIENT ACTIONS INPT = DE inpatient order IV = DE intravenous medication OUTPT = DE outpatient prescription PHARMACY POSSIBLE PATIENT TERMS EXPLANATION ACTIONS -------- ---- ACTIVE A prescription that can be If you have refills, filled at the local [place] pharmacy. you may request a refill of this prescription from your [place] pharmacy. CLINIC A medication you received during If you have questions a visit to a [place] clinic or about this medication emergency department. contact your [place] healthcare team. DISCONTINUED A prescription your provider has Contact your VA stopped. It is no longer healthcare team if you available to be sent to you or need more of this picked up at the [place] pharmacy medication. window. A prescription which is [...] the VA. Or, it may be an xena-oec-cbbseqk (OTC), herbal, dietary supplements or sample medication. [...] before this medication now. you run out. stoppe lyrica / out of alcohol prep pads from VA IS PATIENT TAKING ANY OVER THE COUNTER MEDICATIONS, SUCH VITAMINS OR HERBAL SUPPLEMENTS, INCLUDING ANY MEDICATIONS PRESCRIBED BY ANOTHER PHYSICIAN? Yes, List: Alcohol prep pads ALLERGIES/ADVERSE REACTIONS: Patient has answered NKA Does patient have any new allergies to report since last visit? VITALS: TEMPERATURE: 98.7 F [37.1 C] (04/09/2024 09:17) BP: 136/68 (04/09/2024 09:17) RESP: 20 (04/09/2024 09:17) PULSE: 92 (04/09/2024 09:17) HT: 70 in [177.8 cm] (03/30/2019 14:05) WT: 189.2 lb [85.82 kg] (04/09/2024 09:17) BMI: 27.2 PAIN ASSESSMENT: (Most Recent Pain Score in Vitals Package: 0 (04/09/2024 09:17) ) The patient indicated that they and [...] Now let us serve you. At the [facility], we strive to provide you with exceptional [...] Not At All SPIRITUAL ASSESSMENT: Are there pentecostal practices or spiritual concerns you want the websphere commerce architect, your physician, and other health care team members to immediately know about? Patient advised to call the clinic for any concerns, questions, or symptoms. Patient and/or caregiver verbalized understanding of plan of care. Frail/Elderly Screen: ADL Screen - Reid Index of [place] in Activities of Daily Living Bathing: (3 Points) Receives no assistance (gets in and out of tub by self, if tub is usual means of bathing) Dressing: (3 Points) Gets clothes and gets completely dressed without assistance. Toileting: (3 Points) Goes to toilet room , cleans self, and arranges clothes without assistance (may use object for support such as cane, walker, or wheelchair, and may manage own night bedpan or commode, emptying same next morning) Transferring: (3 Points) Moves in and out of bed and in and out of chair without assistance (may be using object for support, such as cane or walker) Continence: (3 Points) Controls urination and bowel movement completely by self Feeding: (3 Points) Feeds self without assistance Total Score: 18 Points 18 = High (patient independent) 6 = Low (patient very dependent) IADL Screen - [place] Instrumental Activities of Daily Living Scale Ability to use telephone: (1 point) Operates Telephone on own initiative; looks up and dials numbers. Shopping: (1 point) Takes care of all shopping needs independently. Food preparation: (1 point) Plans, prepares, and serves adequate meals independently. Housekeeping: (1 point) Maintains house alone with occasional assistance (heavy work). Laundry: (1 point) Does personal laundry completely. Mode of transportation: (1 point) Travels independently on public transportation or drives own car. Responsibility for own medications: (1 point) Is responsible for taking medications in correct dosages at correct times. Ability to handle finances: (1 point) Manages financial matters independently (budgets, writes checks, pays rent and bills, goes to bank); collects and keeps track of income. Total score: 8 points 8 = High function, independent 0 = Low function, dependent Falls Screen: No falls within the past 12 months. Incontinence Screen No incontinence. Pain Assessment: - PAIN ASSESSMENT: .. Patient reports no pain at this visit. Pain Score = 0. Patient's self identified pain goal: 0 Patient/Nurse Interview: * * Patient states that questions were answered in a way that was easily understood. * Patient stated that adequate information was received regarding the condition and/or treatment. /felisha/ FRANCIS MAHER LPN Signed: 04/09/2024 09:28 FRANCIS MAHER [facility]
--- OUTSIDE RECORDS SUMMARY | 2024-06-28 04:45 | XMS_ITS | Encounter Summary ---
Author Name [facility] [place] [facility] [place] [facility] [place] Address [address] [place] [address] Care Team Providers Care Transmission Builder Name Role Phone NUR, ANITHA Primary Care [...] OF SERVICE MHBP POS Sep 26, 2017 [id number] SURRITTMARIBEL Abdullahi PATIENT AETNA POINT OF SERVICE MHBP Sep 26, 2017 [id number] 720 SURRITTMARIBEL Abdullahi PATIENT AETNA MEDICARE SECONDARY (NO B EXC) MHBP* Jul 28, 2017 [id number] SURRITTMARIBEL Abdullahi PATIENT AETNA (MAILHANDL ERS) MEDICARE SECONDARY (NO B EXC) MHBP Sep 26, 2017 [id number] 720 SURRIMARIBEL INIGUEZ PATIENT AETNA-MHBP POINT OF SERVICE MHBP Jul 28, 2017 [id number] SURRITTE, MARIBEL PATIENT AETNA-MHBP POINT OF SERVICE [facility] Jul 28, 2017 [id number] [phone] SURRITTE, MARIBEL PATIENT CAREMARK ([id number]) PRESCRIPT ION [id number] Jul 28, 2023 [id number] [phone] SURRITTE, MARIBEL PATIENT CAREMARK ([id number]) PRESCRIPT ION MHBP Jul 28, 2017 [id number] SURRITTE, MARIBEL PATIENT CAREMARK ([id number]) PRESCRIPT ION MHBP Jul 28, 2017 [id number] SURRITTE, MARIBEL PATIENT CAREMARK ([id number]) RX PRESCRIPT ION MHBP Sep 26, 2017 [id number] [phone] SURRITTE, MARIBEL PATIENT MEDICARE ([facility]) MEDICARE ) PART A May 28, 2008 PART A [id number] SURRITTE, MARIBEL PATIENT MEDICARE ([facility]) MEDICARE (M) PART A May 28, 2008 PART A [id number] SURRITTE, MARIBEL PATIENT MEDICARE ([facility]) MEDICARE (M) PART A May 28, 2008 PART A [id number] SURRITTE, MARIBEL PATIENT MEDICARE (WNR) MEDICARE (M) PART A May 28, 2008 PART A [id number] [phone] SURRITTE, MARIBEL PATIENT MEDICARE ([facility]) MEDICARE (M) PART A May 28, 2008 PART A [id number] [phone] SURRITTE, MARIBEL PATIENT MEDICARE ([facility]) MEDICARE (M) PART A May 28, 2008 PART A [id number] SURRITTE, MARIBEL PATIENT MEDICARE PART D ([facility]) MEDICARE (M) PART D Jul 28, 2023 PART D [id number] SURRITTE, MARIBEL PATIENT Selected Encounter This section includes the information on record at [place] for the Encounter. Date/Time Encounter Type Encounter Description Reason Provider Source Jun 28, 2024 09:45 AM OFF/OP EST NOVEMBER X REQ PHY/QHP PRIMARY CARE/MEDICINE ICD-10-CM K21.9 Gastro-esophageal reflux disease without esophagitis SANTOS THOMPSON I[facility] Encounter Template Text not used by [place] Assessments - Encounter Diagnoses This section includes the primary and secondary diagnoses documented for the Encounter. Date/Time Primary/Secondary Diagnosis Diagnosis Name Provider Source Jun 28, 2024 08:02 PM PRIMARY Gastro-esophageal reflux disease without esophagitis SANTOS THOMPSON [facility] Plan of Treatment: Future Appointments (+ 6 months) and Future Tests (+/- 45 days) The Plan of Treatment section includes future care activities for the patient from all [place] treatmentfacilities. This section includes future appointments and future orders which are active, pending or scheduled. Future Appointments This section includes appointments that were scheduled to occur 6 months from the date of the Encounter, up to a maximum of 20 appointments. The data comes from all [place] treatment facilities. Appointment Date/Time Appointment Type Appointme nt Facility Name Aug 02, 2024 01:40 PM AMBULATORY - MEDICINE [facility] Aug 23, 2024 08:00 AM AMBULATORY - MEDIC[facility] Sep 08, 2024 09:30 AM AMBULATORY - MEDIC[facility] Sep 30, 2024 10:30 AM AMBULATORY - MEDICINE [facility] Oct 01, 2024 03:00 PM AMBULATORY - MEDICINE [facility] Oct 05, 2024 11:30 AM AMBULATORY - MEDICINE [facility] Oct 11, 2024 09:00 AM AMBULATORY - MEDICINE [facility] Oct 21, 2024 09:30 AM AMBULATORY - MEDICINE [facility] Nov 23, 2024 11:30 AM AMBULATORY - MEDICINE [facility] December 07, 2024 10:00 AM [facility] December 22, 2024 08:00 AM AMBULATORY - [facility]IC[facility] Vital Signs: All taken on the encounter date This section contains inpatient and outpatient Vital Signs collected on the date of the Encounter. Date/Time Temperature Pulse Blood Pressure Respiratory Rate SP02 Pain Height Weight Body Mass Index Source Jun 28, 2024 10:01 AM 97.8 68 137/71 18 98 4 179.3 26 [facility] Social History: Smoking Status (Most current) and Tobacco Use (All prior to encounter date) This section includes the most current, and the historical, smoking and tobacco- related health factors from the [place] facility where the Encounter took place. Current Smoking Status This section includes the most current smoking, or tobacco-related health factor, from the [place] facility where the Encounter took place. Date/Time Current Smoking Status Comment Facil ity Feb 02, 2024 08:30 AM VA-TOBACCO FORMER USER [facility] Tobacco Use History This section includes a history of the smoking, or tobacco-related health factors, that were collected on or before the date of the Encounter. The data comes from the [place] facility where the Encounter took place. Date/Time Smoking Status/Tobacco Use Comment F acrosalba Feb 02, 2024 08:30 AM VA-TOBACCO QUIT 15 YRS OR MORE [facility] Feb 17, 2023 10:30 AM VA-TOBACCO FORMER USER [facility] Feb 17, 2023 10:30 AM VA-TOBACCO QUIT 15 YRS OR MORE [facility] Feb 20, 2022 10:00 AM VA-TOBACCO FORMER USER [facility] Feb 20, 2022 10:00 AM VA-TOBACCO QUIT 15 YRS OR MORE [facility] Feb 17, 2019 10:44 AM VA-TOBACCO FORMER USER [facility] Feb 17, 2019 10:44 AM VA-TOBACCO QUIT 15 YRS OR MORE [facility] Feb 15, 2019 09:43 AM VA-TOBACCO FORMER USER [facility] Feb 15, 2019 09:43 AM VA-TOBACCO QUIT 15 YRS OR MORE [facility] Apr 08, 2018 01:31 PM QUIT TOBACCO >7 YEARS AGO [facility] Oct 28, 2017 08:48 AM QUIT TOBACCO >7 YEARS AGO [facility] May 28, 2017 11:33 AM QUIT TOBACCO >7 YEARS AGO [facility] May 17, 2008 08:50 AM QUIT TOBACCO >7 YEARS AGO [facility] Oct 30, 2007 08:52 AM QUIT TOBACCO >7 YEARS AGO [facility] Mar 09, 2007 08:13 AM QUIT TOBACCO >7 YEARS AGO [facility] Jun 11, 2005 08:28 AM LIFETIME NON-TOBACCO USER [facility] Apr 08, 2005 10:40 AM CURRENT NON-TOBACC O USER-HX OF USE [facility] Oct 05, 2004 11:10 AM CURRENT NON-TOBACC O USER-HX OF USE [facility] Jun 29, 2004 08:36 AM CURRENT NON-TOBACC O USER-HX OF USE [facility] Dec 30, 2003 11:01 AM [...] Encounter. Date/Time Encounter Note(s) Provider Source Jun 28, 2024 07:43 PM NURSING PROGRESS N OTE: LOCAL TITLE: NURSING NOTE STANDARD TITLE: NURSING PROGRESS NOTE DATE OF NOTE: JUN 28, 2024@19:43 ENTRY DATE: JUN 28, 2024@19:43:30 AUTHOR: SANTOS THOMPSON EXP COSIGNER: URGENCY: STATUS: COMPLETED Per A Directive 1605.06, wristband documentation: Patient wristband was removed and destroyed by (staff name) Santos Thompson and placed in the designated [employer]-It bin. This is a 79 year old MALE with known Allergies as noted: Patient has answered NKA On the following Active Medications: Active Outpatient Medications (including Supplies): Active Outpatient Medications Status 1) ALCOHOL PREP PAD USE/APPLY PAD TO AFFECTED AREA(S) ACTIVE (S) FOUR TIMES A DAY FOR WOUND CARE 2) AMLODIPINE BESYLATE 10MG TAB TAKE ONE TABLET BY MOUTH ACTIVE (S) ONCE A DAY FOR HEART/BLOOD PRESSURE 3) ASPIRIN 81MG EC TAB TAKE ONE TABLET BY MOUTH ONCE A ACTIVE (S) DAY FOR HEART OR CIRCULATION. TAKE WITH FOOD. 4) ATORVASTATIN CALCIUM 40MG TAB TAKE ONE TABLET BY ACTIVE (S) MOUTH ONCE A DAY 5) AZELASTINE 137MCG/SPRAY 200D NASAL INHL SPRAY 1 PUFF ACTIVE (S) IN EACH NOSTRIL TWICE DAILY NEEDED FOR ALLERGIC RHINITIS. *PRIME BEFORE USE* 6) CALCIUM POLYCARBOPHIL 625MG TAB TAKE TWO TABLETS BY ACTIVE (S) MOUTH ONCE A DAY FOR FIBER 7) CARVEDILOL 3.125MG TAB TAKE ONE TABLET BY MOUTH TWICE ACTIVE (S) A DAY TAKE WITH FOOD. 8) CLOPIDOGREL BISULFATE 75MG TAB TAKE ONE TABLET BY ACTIVE (S) MOUTH ONCE A DAY 9) DOCUSATE NA 100MG CAP TAKE ONE CAPSULE BY MOUTH THREE ACTIVE (S) TIMES A DAY NEEDED TO SOFTEN STOOL. HOLD FOR LOOSE STOOL/DIARRHEA. 10) EMPAGLIFLOZIN 25MG TAB TAKE ONE-HALF TABLET BY MOUTH ACTIVE (S) ONCE A DAY FOR DIABETES 11) FLUTICASONE PROP 50MCG 120D NASAL INHL INSTILL 2 ACTIVE (S) SPRAYS IN NOSTRIL(S) ONCE A DAY FOR RHINITIS (MUST BE USED DIRECTED FOR MINIMUM OF 21 DAYS TO PROVIDE ADEQUATE BENEFITS) 12) GLUCOSE SENSOR FREESTYLE BRADLEY 2 USE SENSOR EVERY ACTIVE (S) 2 WEEKS FOR BLOOD SUGAR MONITORING CHANGE SENSOR/SITE EVERY 14 DAYS. TO REPLACE SENSOR FOR ANY REASON OR FOR TECHNICAL HELP PLEASE CALL [facility]REECULTR HELP DESK: -SPECIFIC PHONE NUMBER: ([phone]). 13) INSULIN SYRINGE 1ML 30G 12MM USE 1 SYRINGE UNDER THE ACTIVE (S) SKIN ONCE A DAY FOR USE WITH INSULIN TO CONTROL BLOOD SUGAR. 14) INSULIN,ASPART(EQV-NOVLG)100 UN/ML FLXPEN INJECT 10 ACTIVE (S) UNITS UNDER THE SKIN THREE TIMES A DAY BEFORE MEALS FOR BLOOD SUGAR CONTROL. ADMINISTER 10 MINUTES BEFORE FOOD DIRECTED. REFRIGERATE UN-OPENED PENS. DISCARD CARTRIDGE 28 DAYS AFTER OPENING. WILL REPLACE INSULIN REGULAR 15) INSULIN,GLARGINE-YFGN 100UNIT/ML INJ INJECT 54 UNITS ACTIVE (S) UNDER THE SKIN ONCE A DAY FOR DIABETES (AT SAME TIME EACH DAY) - (DISCARD ANY UNUSED PORTION 28 DAYS AFTER OPENING) 16) IPRATROPIUM BR 0.03% NASAL SPRAY USE 2 SPRAYS INTO ACTIVE (S) EACH NOSTRIL THREE TIMES A DAY NEEDED FOR ALLERGIES/NASAL SYMPTOMS. 17) LORATADINE 10MG TAB TAKE ONE TABLET BY MOUTH ONCE A ACTIVE (S) DAY FOR ALLERGIC RHINITIS ON EMPTY STOMACH 18) LOSARTAN 100MG TAB TAKE ONE TABLET BY MOUTH ONCE A ACTIVE (S) DAY TO LOWER BLOOD PRESSURE 19) MONTELUKAST NA 10MG TAB TAKE ONE TABLET BY MOUTH AT ACTIVE (S) BEDTIME FOR BREATHING 20) NEEDLE,PEN 31G,5MM USE 1 NEEDLE UNDER THE SKIN THREE ACTIVE (S) TIMES A DAY BEFORE MEALS WITH NOVOLOG FLEXPEN 21) PANTOPRAZOLE NA 40MG EC TAB TAKE ONE TABLET BY MOUTH ACTIVE (S) TWICE A DAY FOR GASTROESOPHAGEAL REFLUX DISEASE TAKE 30 MINUTES BEFORE MEAL(S) 22) SCOPOLAMINE 0.33MG/24HR (1MG/3DAY) PATCH APPLY 2 ACTIVE (S) PATCHES TO SKIN SITE EVERY 72 HOURS FOR MOTION SICKNESS ### 23) SUCRALFATE 1GM TAB TAKE ONE TABLET BY MOUTH EVERY 6 ACTIVE (S) HOURS FOR DUODENAL ULCER - TAKE ON AN EMPTY STOMACH. 24) TAMSULOSIN HCL 0.4MG CAP TAKE ONE CAPSULE BY MOUTH ACTIVE (S) EVERY EVENING APPROXIMATELY 30 MINUTES AFTER THE SAME MEAL EACH DAY (FOR PROSTATE) 25) TERBINAFINE HCL 1% CREAM APPLY LIGHTLY TO AFFECTED ACTIVE AREA(S) TWICE A DAY FOR FUNGAL SKIN INFECTION 26) TRIAMCINOLONE ACETONIDE 0.1% OINT APPLY LIGHTLY TO ACTIVE AFFECTED AREA(S) TWICE A DAY FOR CONTACT DERMATITIS TO AREAS OF ITCHY RASH NEEDED. FOR EXTERNAL USE ONLY. C/C: dizzy and Heartburn S: Buras presents to the clinic as a walk-in. Buras reports he was seen in the ER at [facility] Yesterday 06/27/24 for acute on chronic dizziness and acid reflux. reports he was worked up for cardiac issues and was all negative, reports he was given 2 new medications that were called into [facility] by ER. reports he did not pick these up yet. Ne medications are LANSOPRAZOLE 30mg BID #30 and gm tablet every 6 hours #30. Buras reports his issues are not any better. rating his discomfort at a 4 out of 10 currently. O/A: Buras ambulated to exam room with steady gait and the assistance of a single point cane. alert and oriented x4 with unlabored breathing. has + bowel sounds x4. Abdomen is rounded, soft with slight tenderness in LUQ. Heart tones regular and lungs clear bilaterally. Vital Signs: see cover sheet Weight: 179.3 pounds P: Reviewed with Provider. Provider assessed Buras. Provider to order medications recommended by ER. Provider called medications into [facility]. Immediate need called and form given to . Advised if symptoms worsen to contact clinic or report to ER. Buras voiced understanding. escorted to lobby in satisfactory condition. RTC: Advised Buras to return to clinic as needed or report to ER if symptoms worsen. /felisha/ Santos Thompson RN BSN [facility] Signed: 06/28/2024 19:59 Receipt Acknowledged By: 07/05/2024 05:25 /felisha/ NOÉ Smith, MSN, [facility]
--- OUTSIDE RECORDS SUMMARY | 2024-06-28 05:46 | XMS_ITS | Encounter Summary ---
Author Name [facility] [place] [facility] [place] Address [address] [place] [address] Care Team Providers Care Cadd Drafter Name Role Phone NURENRIKE LucioSaray Primary Care Provider Unavailabl e Insurance Providers: [...] OF SERVICE MHBP POS Sep 26, 2017 [id number] SURRITTMARIBEL Abdullahi PATIENT AETNA POINT OF SERVICE MHBP Sep 26, 2017 [id number] SURRITTEMARIBEL PATIENT AETNA MEDICARE SECONDARY (NO B EXC) MHBP* Jul 28, 2017 [id number] SURRITTMARIBEL Abdullahi PATIENT AETNA (MAILHANDL ERS) MEDICARE SECONDARY (NO B EXC) [facility] Sep 26, 2017 [id number] [phone] SURRITTMARIBEL Abdullahi PATIENT AETNA-MHBP POINT OF SERVICE MHBP Jul 28, 2017 [id number] [phone] SURRITTE, MARIBEL PATIENT AETNA-MHBP POINT OF SERVICE [facility] Jul 28, 2017 [id number] [phone] SURRITTE, MARIBEL PATIENT CAREMARK ([id number]) PRESCRIPT ION [id number] Jul 28, 2023 [id number] SURRITTE, MARIBEL PATIENT CAREMARK ([id number]) PRESCRIPT ION MHBP Jul 28, 2017 [id number] [phone] SURRITTE, MARIBEL PATIENT CAREMARK ([id number]) PRESCRIPT ION [facility]BP Jul 28, 2017 [id number] SURRITTE, MARIBEL PATIENT CAREMARK ([id number]) RX PRESCRIPT ION [facility] Sep 26, 2017 [id number] [phone] SURRITTE, MARIBEL PATIENT MEDICARE ([facility]) MEDICARE (M) PART A May 28, 2008 PART A [id number] [phone] [id number] SURRITTE, MARIBEL PATIENT MEDICARE ([facility]) MEDICARE (M) PART A May 28, 2008 PART A [id number] SURRITTE, MARIBEL PATIENT MEDICARE (WNR) MEDICARE (M) PART A May 28, 2008 PART A [id number] SURRITTE, MARIBEL PATIENT MEDICARE (WNR) MEDICARE (M) PART A May 28, 2008 PART A [id number] [phone] SURRITTE, MARIBEL PATIENT MEDICARE ([facility]) MEDICARE (M) PART A May 28, 2008 PART A [id number] [phone] SURRITTE, MARIBEL PATIENT MEDICARE ([facility]) MEDICARE (M) PART A May 28, 2008 PART A [id number] SURRITTE, MARIBEL PATIENT MEDICARE PART D (WNR) MEDICARE (M) PART D Jul 28, 2023 PART D [id number] SURRITTE, MARIBEL PATIENT Selected Encounter This section includes the information on record at [place] for the Encounter. Date/Time Encounter Type Encounter Description Reason Provider Source Jun 28, 2024 10:46 AM QNHP OL DIG ASSMT&MGMT 5-10 CLINICAL PHARMACY ICD-10-CM K21.9 Gastro-esophageal reflux disease without esophagitis SANDY BHANDARI V IHKaylen Encounter Template Text not used by [place] Assessments - Encounter Diagnoses This section includes the primary and secondary diagnoses documented for the Encounter. Date/Time Primary/Secondary Diagnosis Diagnosis Name Provider Source Jun 28, 2024 10:51 AM PRIMARY Gastro-esophageal reflux disease without esophagitis SANDY BHANDARI V [facility] Plan of Treatment: Future Appointments (+ 6 months) and Future Tests (+/- 45 days) The Plan of Treatment section includes future care activities for the patient from all [place] treatmentfacilities. This section includes future appointments and future orders which are active, pending or scheduled. Future Appointments This section includes appointments that were scheduled to occur 6 months from the date of the Encounter, up to a maximum of 20 appointments. The data comes from all [place] treatment facilities. Appointment Date/Time Appointment Type Appointme nt Facility Name Aug 02, 2024 01:40 PM AMBULATORY - MEDICINE [facility] Aug 23, 2024 08:00 AM AMBULATORY - MEDICINE [facility] Sep 08, 2024 09:30 AM AMBULATORY - MEDICINE [facility] Sep 30, 2024 10:30 AM AMBULATORY - MEDICINE [facility] Oct 01, 2024 03:00 PM AMBULATORY - MEDICINE [facility] Oct 05, 2024 11:30 AM AMBULATORY - MEDICINE [facility] Oct 11, 2024 09:00 AM AMBULATORY - MEDICINE [facility] Oct 21, 2024 09:30 AM AMBULATORY - MEDICINE [facility] Nov 23, 2024 11:30 AM AMBULATORY - MEDICINE [facility] December 07, 2024 10:00 AM AMBULATORY - MEDICINE [facility] December 22, 2024 08:00 AM AMBULATORY - MEDICINE [facility] Encounter Notes: All associated encounter notes This section contains the clinical notes associated to the Encounter. Date/Time Encounter Note(s) Provider Source Jun 28, 2024 10:46 AM PHARMACY CONSULT: LOCAL TITLE: NON FORMULARY CONSULT PB STANDARD TITLE: PHARMACY CONSULT DATE OF NOTE: JUN 28, 2024@10:46 ENTRY DATE: JUN 28, 2024@10:46:45 AUTHOR: SANDY BHANDARI V EXP COSIGNER: URGENCY: STATUS: COMPLETED The medical record has been reviewed with regard to this prior authorization drug request. Medication requested: LANSOPRAZOLE 30MG EC CAP Medication indication: GERD Medical history relevant to this request: Gastritis and GERD.Failed Pantoprazole and Omeprazole.Next PPI choice is Esomeprazole 40mg bid (requires PA as well) The request does not meet criteria - The preferred alternative therapeutic option(s) have not been exhausted Comment: ESOMEPRAZOLE MAGNESIUM 40MG EC CAP 1 BID /felisha/ SANDY BHANDARI [facility] FUSER Signed: 06/28/2024 10:51 Receipt Acknowledged By: 06/28/2024 14:50 /felisha/ NOÉ Smith, MSN, Randall Golden [facility] SANDY BHANDARI [facility]
--- OUTSIDE RECORDS SUMMARY | 2024-09-30 05:30 | XMS_ITS | Encounter Summary ---
Author Name [facility] [place] [facility] [place] Address [address] [place] [address] Care Team Providers Care Lead Rider Name Role Phone NUR, ANITHA Primary Care [...] AETNA POINT OF SERVICE MHBP Sep 26, [id number] [phone] SURRITTMARIBEL Abdullahi PATIENT AETNA POINT OF SERVICE MHBP POS Sep 26, 2017 [id number] SURRITTMARIBEL Abdullahi PATIENT AETNA MEDICARE SECONDARY (NO B EXC) MHBP* Jul 28, 2017 [id number] [phone] SURRITTMARIBEL Abdullahi PATIENT AETNA (MAILHANDL ERS) MEDICARE SECONDARY (NO B EXC) [facility] Sep 26, [id number] MARIBEL ALCAZAR PATIENT AETNA-MHBP POINT OF SERVICE MHBP Jul 28, 2017 [id number] [id number] SURRITTE, MARIBEL PATIENT AETNA-MHBP POINT OF SERVICE MHBP Jul 28, 2017 [id number] SURRITTE, MARIBEL PATIENT [facility] ([id number]) PRESCRIPT ION [id number] Jul 28, 2023 [id number] SURRITTE, MARIBEL PATIENT [facility] ([id number]) PRESCRIPT ION MHBP Jul 28, 2017 [id number] [phone] SURRITTE, MARIBEL PATIENT [facility] ([id number]) PRESCRIPT ION MHBP Jul 28, 2017 [id number] [phone] SURRITTE, MARIBEL PATIENT [facility] ([id number]) RX PRESCRIPT ION MHBP Sep 26, 2017 [id number] [phone] SURRITTE, MARIBEL PATIENT MEDICARE ([facility]) MEDICARE (M) PART A May 28, 2008 PART A [id number] SURRITTE, MARIBEL PATIENT MEDICARE ([facility]) MEDICARE (M) PART A May 28, 2008 PART A [id number] SURRITTE, MARIBEL PATIENT MEDICARE ([facility]) MEDICARE (M) PART A May 28, 2008 PART A [id number] SURRITTE, MARIBEL PATIENT MEDICARE (WNR) MEDICARE (M) PART A May 28, 2008 PART A [id number] SURRITTE, MARIBEL PATIENT MEDICARE ([facility]) MEDICARE () PART A May 28, 2008 PART A [id number] [phone] SURRITTE, MARIBEL PATIENT MEDICARE ([facility]) MEDICARE (M) PART A May 28, 2008 PART A [id number] SURRITTE, MARIBEL PATIENT MEDICARE PART D (WNR) MEDICARE (M) PART D Jul 28, 2023 PART D [id number] SURRITTE, MARIBEL PATIENT Selected Encounter This section includes the information on record at [place] for the Encounter. Date/Time Encounter Type Encounter Description Reason Provider Source Sep 30, 2024 10:30 AM OFFICE O/P EST MOD 30 MIN PRIMARY CARE/MEDICINE ICD-10-CM K21.9 Gastro-esophageal reflux disease without esophagitis MICHELLE BURNETT Kaylen Encounter Template Text not used by [place] Assessments - Encounter Diagnoses This section includes the primary and secondary diagnoses documented for the Encounter. Date/Time Primary/Secondary Diagnosis Diagnosis Name Provider Source Oct 01, 2024 08:04 AM PRIMARY Gastro-esophageal reflux disease without esophagitis MICHELLE BURNETT [facility] Oct 01, 2024 08:04 AM SECONDARY Type 2 diabetes mellitus with diabetic neuropathy, unsp MICHELLE BURNETT [facility] Plan of Treatment: Future Appointments (+ 6 months) and Future Tests (+/- 45 days) The Plan of Treatment section includes future care activities for the patient from all [place] [facility]. This section includes future appointments and future orders which are active, pending or scheduled. Future Appointments This section includes appointments that were scheduled to occur 6 months from the date of the Encounter, up to a maximum of 20 appointments. The data comes from all [place] treatment facilities. Appointment Date/Time Appointment Type Appointme nt Facility Name Oct 01, 2024 03:00 PM AMBULATORY - MEDICINE [facility] Oct 05, 2024 11:30 AM AMBULATORY - MEDICINE [facility] Oct 11, 2024 09:00 AM AMBULATORY - MEDICINE [facility] Oct 21, 2024 09:30 AM AMBULATORY - MEDICINE [facility] Nov 23, 2024 11:30 AM AMBULATORY - MEDICINE [facility] December 07, 2024 10:00 AM [place]IC[place] [facility] December 22, 2024 08:00 AM [facility] [place] [facility] Jan 04, 2025 11:15 AM AMBULATORY - MEDICINE [facility] Jan 05, 2025 10:30 AM [facility] [place] [facility] Jan 17, 2025 03:00 PM [facility] [place] [facility] Jan 18, 2025 10:15 AM [facility] [place] [facility] Jan 19, 2025 09:45 AM AMBULATORY - MEDICINE [facility] Lab Results: +/- 30 days of the encounter This section includes the Chemistry and Hematology Lab Results on record with [place] for the patient. Radiology Reports and Pathology Reports are provided separately, in subsequent sections. Lab Results This section contains the Chemistry/Hematology Results that were resulted 30 days before or 30 daysafter the date of the Encounter. Date/Time Source Result Type Result - Unit Interpretation Reference Range Specimen Type Comment Oct 11, 2024 08:10 AM [facility] DIRECT LDL (MA-PB) PLASMA Specimen Type: PLASMA No comment entered. Ordering Provider: FRANKY BAKER Report Released Date/Time: Oct 05, 2024 12:32 PM Reporting Lab: [place] [facility] [address] [place] [address] Performing Lab: [place] [facility] [address] [place] [address] DIRECT LDL 46.3 mg/dL 0-99.9 Oct 11, 2024 08:10 AM [facility] IRON PLASM A Specimen Type: PLASMA No comment entered. Ordering Provider: FRAKNY BAKER Report Released Date/Time: Oct 05, 2024 12:32 PM Reporting Lab: [place] [facility] [address] [place] [address] Performing Lab: [place] [facility] [address] [place] [address] IRON 78 ug/dL 65-175 Oct 11, 2024 08:10 AM [facility] CHOLESTEROL PANEL (PB) PLASMA Specimen Type: P LASMA No comment entered. Ordering Provider: FRANKY BAKER Report Released Date/Time: Oct 05, 2024 12:32 PM Reporting Lab: [place] [facility] [address] [place] [address] Performing Lab: [place] [facility] [address] [place] [address] CHOLESTEROL 103 mg/dL 0-200 TRIGLYCERIDE 44 mg/dL 0-150 CALCULATED LDL 44.6 mg/dL HDL(New) 49.6 mg/dL H >40 HDL % OF TOTAL CHOLESTEROL (PB) 48.2 >25 Oct 11, 2024 08:10 AM [facility] VITAMIN D, 25-HYDROXY SERUM Specimen Type: SE RUM No comment entered. Ordering Provider: FRANKY BAKER Report Released Date/Time: Oct 05, 2024 12:32 PM Reporting Lab: [place] [facility] [address] [place] [address] Performing Lab: [place] [facility] [address] [place] [address] VITAMIN D, 25-HYDROXY 65.8 ng/mL 30-96 Oct 11, 2024 08:10 AM [facility] MAGNESIUM PLASMA Specimen Typ e: PLASMA No comment entered. Ordering Provider: FRANKY BAKER Report Released Date/Time: Oct 05, 2024 12:32 PM Reporting Lab: [place] [facility] [address] [place] [address] Performing Lab: [place] [facility] [address] [place] [address] MAGNESIUM 2.00 mg/dL 1.6-2.6 Oct 11, 2024 08:10 AM [facility] HGA1C BLOOD Specimen Type: BLOOD No comment entered. Ordering Provider: FRANKY BAKER Report Released Date/Time: Oct 05, 2024 12:32 PM Reporting Lab: [place] [facility] [address] [place] [address] Performing Lab: [place] [facility] [address] [place] [address] HGA1C 7.1 H 4.0-6.0 Oct 11, 2024 08:10 AM [facility] URINE ALBUMIN PROFILE-ih (PB) URINE Specimen Type: URINE No comment entered. Ordering Provider: FRANKY BAKER Report Released Date/Time: Oct 05, 2024 12:32 PM Reporting Lab: [place] [facility] [address] [place] [address] Performing Lab: [place] [facility] [address] [place] [address] URINE ALBUMIN (PB-STL) 11.62 mg/L 0-30 uACR (PB-MA) 21.10 ug/mg CREATININE URINE/OTHERS 55.06 mg/dL Oct 11, 2024 08:10 AM [facility] FOLATE (PB) SERUM Specimen Typ e: SERUM No comment entered. Ordering Provider: FRANKY BAKER Report Released Date/Time: Oct 05, 2024 12:32 PM Reporting Lab: [place] [facility] [address] [place] [address] Performing Lab: [place] [facility] [address] [place] [address] FOLATE (PB) 14.7 ng/mL 7-20 Oct 11, 2024 08:10 AM [facility] COMPREHENSIVE METABOLIC PANEL PLASMA Specimen Type: PLASMA No comment entered. Ordering Provider: FRANKY BAKER Report Released Date/Time: Oct 05, 2024 12:32 PM Reporting Lab: [place] [facility] [address] [place] [address] Performing Lab: [place] [facility] [address] [place] [address] CREATININE 0.86 mg/dL 0.7-1.3 UREA NITROGEN 11 mg/dL 9-25 GLUCOSE 104 mg/dL H 72-99 SODIUM 134 meq/L L 136-145 POTASSIUM 4.1 meq/L 3.5-5 CHLORIDE 100 meq/L 98-107 CARBON DIOXIDE 24 meq/L 22-31 CALCIUM 9.2 mg/dL 8.4-10.4 PROTEIN 7.3 g/dL 6-8.6 ALBUMIN 4.4 g/dL 3.4-5 TOTAL BILIRUBIN 0.5 mg/dL 0.2-1.2 ALKALINE PHOSPHATASE 70 U/L 40-150 AST/SGOT 23 U/L 5-34 ALT/SGPT 18 U/L 8-40 EGFR (CKD-EPI 2020) 87 Oct 11, 2024 08:10 AM [facility] B12 SERUM Specimen Type: SERUM No comment entered. Ordering Provider: FRANKY BAKER Report Released Date/Time: Oct 05, 2024 12:32 PM Reporting Lab: [place] [facility] [address] [place] [address] Performing Lab: [place] [facility] [address] [place] [address] B12 507 pg/mL 213-816 Oct 11, 2024 08:10 AM [facility] CBC BLOOD Specimen Type: BLOOD No comment entered. Ordering Provider: FRANKY BAKER Report Released Date/Time: Oct 05, 2024 12:32 PM Reporting Lab: [place] [facility] [address] [place] [address] Performing Lab: [facility] [address] [place] [address] WBC 6.4 10*3/uL 3.6-11.2 RBC 4.28 10*6/uL 4.10-5.70 HGB 13.4 g/dL 13.1-16.8 HCT 39.9 38.2-48.4 MCV 93.2 fL 80.0-100.0 MCH 31.3 pg 27.0-34.0 MCHC 33.6 g/dL 33.0-36.0 PLT 248 10*3/uL 150-400 MPV 10.5 fL 7.5-11.2 RDW 13.5 11.8-15.1 LYMPHOCYTES, AUTO % 20.1 MONOCYTES, AUTO % 13.5 NEUTROPHILS, AUTO % 57.9 EOSINOPHILS, AUTO % 7.4 BASOPHILS, AUTO % 0.9 LYMPHOCYTES, ABSOLUTE 1.28 10*3/uL 0.77- 4.50 MONOCYTES, ABSOLUTE 0.86 10*3/uL H 0.19-0. 8 NEUTROPHILS, ABSOLUTE 3.70 10*3/uL 2.10- 8.00 EOSINOPHILS, ABSOLUTE 0.47 10*3/uL 0.00- 0.60 BASOPHILS, ABSOLUTE 0.06 10*3/uL 0.00-0. 20 IMMATURE GRANS, AUTO % 0.2 IMMATURE GRANS, AUTO ABS 0.01 10*3/uL 0. 00-0.05 Vital Signs: All taken on the encounter date This section contains inpatient and outpatient Vital Signs collected on the date of the Encounter. Date/Time Temperature Pulse Blood Pressure Respiratory Rate SP02 Pain Height Weight Body Mass Index Source Sep 30, 2024 10:53 AM 142/60 [facility] Sep 30, 2024 10:43 AM 97.7 80 152/61 20 97 0 176.1 25 [facility] Social History: Smoking Status (Most current) and Tobacco Use (All prior to encounter date) This section includes the most current, and the historical, smoking and tobacco- related health factors from the [facility] where the Encounter took place. Current Smoking Status This section includes the most current smoking, or tobacco-related health factor, from the [facility] facility where the Encounter took place. Date/Time Current Smoking Status Comment Maura ity Feb 02, 2024 08:30 AM VA-TOBACCO FORMER USER [facility] Tobacco Use History This section includes a history of the smoking, or tobacco-related health factors, that were collected on or before the date of the Encounter. The data comes from the [place] facility where the Encounter took place. Date/Time Smoking Status/Tobacco Use Comment F acility Feb 02, 2024 08:30 AM VA-TOBACCO QUIT 15 YRS OR MORE [facility] Feb 17, 2023 10:30 AM VA-TOBACCO FORMER USER [facility] Feb 17, 2023 10:30 AM VA-TOBACCO QUIT 15 YRS OR MORE [facility] Feb 20, 2022 10:00 AM VA-TOBACCO FORMER USER [facility] Feb 20, 2022 10:00 AM VA-TOBACCO QUIT 15 YRS OR MORE [facility] Feb 17, 2019 10:44 AM VA-TOBACCO FORMER USER [facility] Feb 17, 2019 10:44 AM VA-TOBACCO QUIT 15 YRS OR MORE [facility] Feb 15, 2019 09:43 AM VA-TOBACCO FORMER USER [facility] Feb 15, 2019 09:43 AM VA-TOBACCO QUIT 15 YRS OR MORE [facility] Apr 08, 2018 01:31 PM QUIT TOBACCO >7 YEARS AGO [facility] Oct 28, 2017 08:48 AM QUIT TOBACCO >7 YEARS AGO [facility] May 28, 2017 11:33 AM QUIT TOBACCO >7 YEARS AGO [facility] May 17, 2008 08:50 AM QUIT TOBACCO >7 YEARS AGO [facility] Oct 30, 2007 08:52 AM QUIT TOBACCO >7 YEARS AGO [facility] Mar 09, 2007 08:13 AM QUIT TOBACCO >7 YEARS AGO [facility] Jun 11, 2005 08:28 AM LIFETIME NON-TOBACCO USER [facility] Apr 08, 2005 10:40 AM CURRENT NON-TOBACC O USER-HX OF USE [place] [place] [facility] Oct 05, 2004 11:10 AM CURRENT NON-TOBACC O USER[place]X OF [place] [place] [facility] Jun 29, 2004 08:36 AM CURRENT NON-TOBACC O USER-HX OF USE [facility] Dec 30, 2003 11:01 AM CURRENT NON-TOBACC O USER-HX OF [place] [facility] Jul 15, 2003 11:11 AM CURRENT NON-TOBACC O USER-HX OF USE quit Jul 1998 [facility] Dec 27, 2002 12:57 PM CURRENT NON-TOBACC O USER-HX OF USE [facility] Mar 31, 2002 10:19 AM CURRENT NON-TOBACC O USER-HX OF USE [facility] Sep 15, 2001 01:22 PM CURRENT NON-TOBACC O USER-HX OF USE [facility] Feb 16, 2001 03:11 PM CURRENT NON-TOBACC O USER-HX OF USE quit 2 yrs ago, 1 pk day [facility] Encounter Notes: All associated encounter notes This section contains the clinical notes associated to the Encounter. Date/Time Encounter Note(s) Provider Source Sep 30, 2024 10:56 AM PRIMARY CARE PROGR ESS NOTE: LOCAL TITLE: PRIMARY CARE CLINIC PROGRESS NOTE PB STANDARD TITLE: PRIMARY CARE PROGRESS NOTE DATE OF NOTE: SEP 30, 2024@10:56 ENTRY DATE: SEP 30, 2024@10:56:23 AUTHOR: MICHELLE BURNETT COSIGNER: URGENCY: STATUS: COMPLETED Date & Time:Sep@10:57 This is a 79 year old MALE Allergies: Patient has answered NKA CC: f/u ER for Epigastric pain HPI: [place] presented to clinic today for a scheduled follow-up for an ER visit for epigastric pain and gastritis does have a scope ordered at the end of this month. Still having trouble with gastritis he is taking pantoprazole will call in Carafate suspension today unable to swallow pills because they get stuck in his throat hard of his problem has been things getting stuck in his throat he has already seen GI and is going to have a scope. denies any other needs for today we did discuss his dizziness. He stated that the Jardiance was causing the dizziness and we talked about his diabetes and his sugars being out of control. Will get scheduled with Dr. Baker for management of blood sugars. Temperature: 97.7 F [36.5 C] (09/30/2024 10:43) Respiratory Rate: 20 (09/30/2024 10:43) Pulse Rate: 80 (09/30/2024 10:43) Blood Pressure: 142/60 (09/30/2024 10:53) HT: 70 in [177.8 cm] (03/30/2019 14:05) WT: 176.1 lb [79.88 kg] (09/30/2024 10:43) BMI: 25.3 97% (09/30/2024 10:43) REVIEW OF SYSTEMS: HEENT: No headache. No [...] 1) Diabetes mellitus type 2 (SNOMED CT 88556160) 2) GERD - Gastro-esophageal reflux disease 3) Essential hypertension (SNOMED CT 75951370) 4) Chronic obstructive lung disease (SNOMED CT 42120260) 5) Sleep apnea syndrome 6) Allergic rhinitis (SNOMED CT 54321893) 7) HL - Hearing loss 8) Carotid artery stenosis 9) Hyponatremia 10) Obstructive sleep apnea (SNOMED CT 72247092) 11) Cerebral ischemia (SNOMED CT 432079586) 12) HLD - Hyperlipidemia 13) History of cholecystectomy 14) PVD - peripheral vascular disease 15) Benign prostatic hypertrophy with outflow obstruction 16) Vertigo 17) Cerebral infarction 18) CAD - Coronary Artery Disease (SCT 01637553) 19) Dysphagia (SCT 18126140) Active Outpatient Medications (including Supplies): Active Outpatient Medications Status 1) ALBUTEROL SO4 0.083% INHL 3ML INHALE 1 VIAL (2.5MG/3ML) BY ACTIVE NEBULIZATION EVERY 6 HOURS DIRECTED NEEDED Indication: FOR COPD 2) ALCOHOL PREP PAD USE/APPLY PAD TO AFFECTED AREA(S) FOUR ACTIVE (S) TIMES A DAY Indication: FOR WOUND CARE 3) AMLODIPINE BESYLATE 10MG TAB TAKE ONE TABLET BY MOUTH ONCE A ACTIVE (S) DAY FOR HEART/BLOOD PRESSURE 4) ASPIRIN 81MG EC TAB TAKE ONE TABLET BY MOUTH ONCE A DAY FOR ACTIVE (S) HEART OR CIRCULATION. TAKE WITH FOOD. 5) ATORVASTATIN CALCIUM 40MG TAB TAKE ONE TABLET BY MOUTH ONCE ACTIVE A DAY 6) ATORVASTATIN CALCIUM 80MG TAB TAKE ONE-HALF TABLET BY MOUTH ACTIVE (S) EVERY EVENING Indication: FOR HIGH CHOLESTEROL 7) AZELASTINE 137MCG/SPRAY 200D NASAL INHL SPRAY 1 PUFF IN EACH ACTIVE (S) NOSTRIL TWICE DAILY NEEDED FOR ALLERGIC RHINITIS. *PRIME BEFORE USE* 8) CALCIUM POLYCARBOPHIL 625MG TAB TAKE TWO TABLETS BY MOUTH ACTIVE (S) ONCE A DAY FOR FIBER 9) CARVEDILOL 3.125MG TAB TAKE ONE TABLET BY MOUTH TWICE A DAY ACTIVE (S) TAKE WITH FOOD. 10) CLOPIDOGREL BISULFATE 75MG TAB TAKE ONE TABLET BY MOUTH ONCE ACTIVE (S) A DAY 11) DOCUSATE NA 100MG CAP TAKE ONE CAPSULE BY MOUTH THREE TIMES ACTIVE A DAY NEEDED TO SOFTEN STOOL. HOLD FOR LOOSE STOOL/DIARRHEA. 12) FLUTICASONE PROP 50MCG 120D NASAL INHL INSTILL 2 SPRAYS IN ACTIVE (S) NOSTRIL(S) ONCE A DAY (MUST BE USED DIRECTED FOR MINIMUM OF 21 DAYS TO PROVIDE ADEQUATE BENEFITS) Indication: FOR RHINITIS 13) GLUCOSE SENSOR FREESTYLE BRADLEY 2 USE SENSOR EVERY 2 WEEKS ACTIVE (S) CHANGE SENSOR/SITE EVERY 14 DAYS. TO REPLACE SENSOR FOR ANY REASON OR FOR TECHNICAL HELP PLEASE CALL [employer] HELP DESK: -SPECIFIC PHONE NUMBER: [phone]). Indication: FOR BLOOD SUGAR MONITORING 14) INSULIN SYRINGE 1ML 30G 12MM USE 1 SYRINGE UNDER THE SKIN ACTIVE (S) ONCE A DAY FOR USE WITH INSULIN TO CONTROL BLOOD SUGAR. 15) INSULIN,ASPART(EQV-NOVLG)100U N/ML FLXPEN INJECT 10 UNITS ACTIVE (S) UNDER THE SKIN THREE TIMES A DAY BEFORE MEALS FOR BLOOD SUGAR CONTROL. ADMINISTER 10 MINUTES BEFORE FOOD DIRECTED. REFRIGERATE UN-OPENED PENS. DISCARD CARTRIDGE 28 DAYS AFTER OPENING. WILL REPLACE INSULIN REGULAR 16) INSULIN,GLARGINE,HUMAN 100 UNIT/ML INJ INJECT 54 UNITS UNDER ACTIVE (S) THE SKIN ONCE A DAY (AT SAME TIME EACH DAY) - (DISCARD ANY UNUSED PORTION 28 DAYS AFTER OPENING) Indication: FOR DIABETES 17) IPRATROPIUM BR 0.03% NASAL SPRAY USE 2 SPRAYS INTO EACH ACTIVE (S) NOSTRIL THREE TIMES A DAY NEEDED FOR ALLERGIES/NASAL SYMPTOMS. 18) IPRATROPIUM BR 0.06% NASAL SPRAY USE 1 TO 2 SPRAYS INTO EACH ACTIVE (S) NOSTRIL THREE TIMES A DAY NEEDED 19) LORATADINE 10MG TAB TAKE ONE TABLET BY MOUTH ONCE A DAY ON ACTIVE (S) EMPTY STOMACH Indication: FOR ALLERGIC RHINITIS 20) LOSARTAN 100MG TAB TAKE ONE TABLET BY MOUTH ONCE A DAY TO ACTIVE (S) LOWER BLOOD PRESSURE 21) MONTELUKAST NA 10MG TAB TAKE ONE TABLET BY MOUTH AT BEDTIME ACTIVE (S) Indication: FOR BREATHING 22) NEEDLE,PEN 31G,5MM USE 1 NEEDLE UNDER THE SKIN THREE TIMES A ACTIVE (S) DAY BEFORE MEALS WITH NOVOLOG FLEXPEN 23) PANTOPRAZOLE NA 40MG EC TAB TAKE ONE TABLET BY MOUTH TWICE A ACTIVE (S) DAY TAKE 30 MINUTES BEFORE MEAL(S) Indication: FOR GASTROESOPHAGEAL REFLUX DISEASE 24) SCOPOLAMINE 0.33MG/24HR (1MG/3DAY) PATCH APPLY 2 PATCHES TO ACTIVE SKIN SITE EVERY 72 HOURS Indication: FOR MOTION SICKNESS 25) TAMSULOSIN HCL 0.4MG CAP TAKE ONE CAPSULE BY MOUTH EVERY ACTIVE (S) EVENING APPROXIMATELY 30 MINUTES AFTER THE SAME MEAL EACH DAY (FOR PROSTATE) 26) TERBINAFINE HCL 1% CREAM APPLY LIGHTLY TO AFFECTED AREA(S) ACTIVE (S) TWICE A DAY Indication: FOR FUNGAL SKIN INFECTION 27) TRIAMCINOLONE ACETONIDE 0. 4 location information (8 % OINT APPLY LIGHTLY TO AFFECTED ACTIVE AREA(S) TWICE A DAY TO AREAS OF ITCHY RASH NEEDED. FOR EXTERNAL USE ONLY. Indication: FOR CONTACT DERMATITIS OBJECTIVE: Physical Exam General: NAD noted, A&Ox3, [...] normal, answers questions appropriately throughout visit Assessment/Plan: GERD -current plan to continue seeing pre press manager and follow-up as needed DM -current Plan to continue seeing Dr. Baker and follow-up as needed Follow-up: as needed. Discussed with patient that in the event of community imaging / testing being ordered in the future, once the imaging / testing has been completed, please notify PACT of completion at outside facility if not called with results within 1 week by a [facility] PACT member; this is due to intermittent lapses in notification of imaging completion within [facility]. All questions answered; agrees to plan of care. Follow up as listed above, annually, and as needed. Keep all appointments. Medications Reconciled. See AVS given to . Time spent 30 minutes. Michelle BREWER /felisha/ NOÉ Smith, MSN, [facility] Signed: 10/01/2024 08:05 MICHELLE BURNETT [facility] Sep 30, 2024 10:20 AM PRIMARY CARE NURSI PEGGY NOTE: LOCAL TITLE: PRIMARY CARE NURSING PROGRESS NOTE (TEXT) NURSING P STANDARD TITLE: PRIMARY CARE NURSING NOTE DATE OF NOTE: SEP 30, 2024@10:20 ENTRY DATE: SEP 30, 2024@10:20:57 AUTHOR: STEPHANIA VYAS COSIGNER: URGENCY: STATUS: COMPLETED Established Patient MARIBEL ALCAZAR IS A 79 YEAR OLD MALE BEING SEEN IN CLINIC SEP 30, 2024. REASON FOR VISIT: 3 month follow up from ER visit for epigastric pain, reflux. states slightly better but still with hoarse voice and reflux. Scheduled for a EGD 10/22/2024 at [facility]. Are you receiving care any where other than the [facility]? No HEALTH AND SURGICAL HISTORY: No new diagnosis or surgery. Does patient report using home oxygen? No CURRENT ACTIVE MEDICATIONS FOR REVIEW: Allergies/ADRs (Tool #5) FACILITY ALLERGY/ADR -------- [facility] NO KNOWN ALLERGIES [facility] No Known Allergies [facility] NO KNOWN ALLERGIES Med. Reconciliation (Tool #1) INCLUDED IN THIS LIST: Alphabetical list of active outpatient prescriptions dispensed from this [facility] (local) and dispensed from another [facility] or [...] the patient into personal health records (i.e. [employer]ritz) are NOT included in this list. Non-VA medications documented outside this [facility], remote inpatient orders (regardless of status) and remote clinic medications are NOT included in this list. The patient and provider must always discuss medications the patient is taking, regardless of where the medication was dispensed or obtained. OUTPT ALBUTEROL SO4 0.083% INHL 3ML (Status = Active) INHALE 1 VIAL (2.5MG/3ML) BY NEBULIZATION EVERY 6 HOURS DIRECTED NEEDED FOR COPD Rx# [id number] Last Released: 09/21/24 Qty/Days Supply: 180/90 Rx Expiration Date: 07/09/25 Refills Remainin Indication: FOR COPD OUTPT AMLODIPINE BESYLATE 10MG TAB (Status = Discontinued) TAKE ONE TABLET BY MOUTH ONCE A DAY FOR HEART/BLOOD PRESSURE Rx# [id number] Last Released: 07/30/24 Qty/Days Supply: 90/ Rx Expiration Date: 09/04/24 Refills Remainin OUTPT AMLODIPINE BESYLATE 10MG TAB (Status = Active/Suspended) TAKE ONE TABLET BY MOUTH ONCE A DAY FOR HEART/BLOOD PRESSURE Rx# [id number] Last Released: Qty/Days Supply: 90 Rx Expiration Date: 08/25/25 Refills Remainin OUTPT ASPIRIN 81MG EC TAB (Status = Active/Suspended) TAKE ONE TABLET BY MOUTH ONCE A DAY FOR HEART OR CIRCULATION. TAKE WITH FOOD. Rx# [id number] Last Released: 09/06/24 Qty/Days Supply: 120/90 Rx Expiration Date: 04/10/25 Refills Remainin OUTPT ATORVASTATIN CALCIUM 40MG TAB (Status = Active) TAKE ONE TABLET BY MOUTH ONCE A DAY Rx# [id number] Last Released: 09/02/24 Qty/Days Supply: 90/ Rx Expiration Date: 12/29/24 Refills Remainin OUTPT ATORVASTATIN CALCIUM 80MG TAB (Status = Active/Suspended) TAKE ONE-HALF TABLET BY MOUTH EVERY EVENING FOR HIGH CHOLESTEROL Rx# [id number] Last Released: 08/25/24 Qty/Days Supply: 45/ Rx Expiration Date: 08/25/25 Refills Remainin Indication: FOR HIGH CHOLESTEROL OUTPT AZELASTINE 137MCG/SPRAY 200D NASAL INHL (Status = Discontinued) SPRAY 1 PUFF IN EACH NOSTRIL TWICE DAILY NEEDED FOR ALLERGIC RHINITIS. *PRIME BEFORE USE* Rx# [id number] Last Released: 08/17/24 Qty/Days Supply: 08/26 Rx Expiration Date: 04/10/25 Refills Remainin OUTPT AZELASTINE 137MCG/SPRAY 200D NASAL INHL (Status = Active/Suspended) SPRAY 1 PUFF IN EACH NOSTRIL TWICE DAILY NEEDED FOR ALLERGIC RHINITIS. *PRIME BEFORE USE* Rx# [id number] Last Released: 09/21/24 Qty/Days Supply: 08/26 Rx Expiration Date: 08/25/25 Refills Remainin OUTPT CALCIUM POLYCARBOPHIL 625MG TAB (Status = Active/Suspended) TAKE TWO TABLETS BY MOUTH ONCE A DAY FOR FIBER Rx# [id number] Last Released: 08/27/24 Qty/Days Supply: 180 Rx Expiration Date: 06/29/25 Refills Remainin OUTPT CARVEDILOL 3.125MG TAB (Status = Discontinued) TAKE ONE TABLET BY MOUTH TWICE A DAY TAKE WITH FOOD. Rx# [id number] Last Released: 07/16/24 Qty/Days Supply: 180 Rx Expiration Date: 09/26/24 Refills Remainin OUTPT CARVEDILOL 3.125MG TAB (Status = Active/Suspended) TAKE ONE TABLET BY MOUTH TWICE A DAY TAKE WITH FOOD. Rx# [id number] Last Released: Qty/Days Supply: 180 Rx Expiration Date: 11/22/24 Refills Remainin OUTPT CLOPIDOGREL BISULFATE 75MG TAB (Status = Active/Suspended) TAKE ONE TABLET BY MOUTH ONCE A DAY Rx# [id number] Last Released: 08/25/24 Qty/Days Supply: 90/ Rx Expiration Date: 04/10/25 Refills Remainin OUTPT DOCUSATE NA 100MG CAP (Status = Active) TAKE ONE CAPSULE BY MOUTH THREE TIMES A DAY NEEDED TO SOFTEN STOOL. HOLD FOR LOOSE STOOL/DIARRHEA. Rx# [id number] Last Released: 09/24/24 Qty/Days Supply: 300/ Rx Expiration Date: 04/10/25 Refills Remainin OUTPT EMPAGLIFLOZIN 25MG TAB (Status = Discontinued) TAKE ONE-HALF TABLET BY MOUTH ONCE A DAY FOR DIABETES Rx# [id number] Last Released: 07/13/24 Qty/Days Supply: 45/ Rx Expiration Date: 02/02/25 Refills Remainin Indication: FOR DIABETES OUTPT FLUTICASONE PROP 50MCG 120D NASAL INHL (Status = Active/Suspended) INSTILL 2 SPRAYS IN NOSTRIL(S) ONCE A DAY FOR RHINITIS (MUST BE USED DIRECTED FOR MINIMUM OF 21 DAYS TO PROVIDE ADEQUATE BENEFITS) Rx# [id number] Last Released: 09/13/24 Qty/Days Supply: Rx Expiration Date: 04/10/25 Refills Remainin Indication: FOR RHINITIS OUTPT INSULIN,ASPART(EQV-NOVLG)100U N/ML FLXPEN (Status = Active/Suspended) INJECT 10 UNITS UNDER THE SKIN THREE TIMES A DAY BEFORE MEALS FOR BLOOD SUGAR CONTROL. ADMINISTER 10 MINUTES BEFORE FOOD DIRECTED. REFRIGERATE UN-OPENED PENS. DISCARD CARTRIDGE 28 DAYS AFTER OPENING. WILL REPLACE INSULIN REGULAR Rx# [id number] Last Released: 07/15/24 Qty/Days Supply: Rx Expiration Date: 06/29/25 Refills Remainin OUTPT INSULIN,GLARGINE,HUMAN 100 UNIT/ML INJ (Status = Active/Suspended) INJECT 54 UNITS UNDER THE SKIN ONCE A DAY FOR DIABETES (AT SAME TIME EACH DAY) - (DISCARD ANY UNUSED PORTION 28 DAYS AFTER OPENING) Rx# [id number] Last Released: 09/21/24 Qty/Days Supply: Rx Expiration Date: 04/10/25 Refills Remainin Indication: FOR DIABETES OUTPT IPRATROPIUM BR 0.03% NASAL SPRAY (Status = Discontinued) USE 2 SPRAYS INTO EACH NOSTRIL THREE TIMES A DAY NEEDED FOR ALLERGIES/NASAL SYMPTOMS. Rx# [id number] Last Released: 08/16/24 Qty/Days Supply: Rx Expiration Date: 09/04/24 Refills Remainin OUTPT IPRATROPIUM BR 0.03% NASAL SPRAY (Status = Active/Suspended) USE 2 SPRAYS INTO EACH NOSTRIL THREE TIMES A DAY NEEDED FOR ALLERGIES/NASAL SYMPTOMS. Rx# [id number] Last Released: 09/17/24 Qty/Days Supply: Rx Expiration Date: 08/25/25 Refills Remainin OUTPT IPRATROPIUM BR 0.06% NASAL SPRAY (Status = Active/Suspended) USE 1 TO 2 SPRAYS INTO EACH NOSTRIL THREE TIMES A DAY NEEDED Rx# [id number] Last Released: 09/16/24 Qty/Days Supply: Rx Expiration Date: 08/03/25 Refills Remainin OUTPT LORATADINE 10MG TAB (Status = Active/Suspended) TAKE ONE TABLET BY MOUTH ONCE A DAY FOR ALLERGIC RHINITIS ON EMPTY STOMACH Rx# [id number] Last Released: 09/13/24 Qty/Days Supply: Rx Expiration Date: 04/10/25 Refills Remainin Indication: FOR ALLERGIC RHINITIS OUTPT LOSARTAN 100MG TAB (Status = Active/Suspended) TAKE ONE TABLET BY MOUTH ONCE A DAY TO LOWER BLOOD PRESSURE Rx# [id number] Last Released: 08/17/24 Qty/Days Supply: Rx Expiration Date: 06/29/25 Refills Remainin OUTPT MONTELUKAST NA 10MG TAB (Status = Active/Suspended) TAKE ONE TABLET BY MOUTH AT BEDTIME FOR BREATHING Rx# [id number] Last Released: 08/23/24 Qty/Days Supply: Rx Expiration Date: 04/10/25 Refills Remainin Indication: FOR BREATHING OUTPT PANTOPRAZOLE NA 40MG EC TAB (Status = Active/Suspended) TAKE ONE TABLET BY MOUTH TWICE A DAY FOR GASTROESOPHAGEAL REFLUX DISEASE TAKE 30 MINUTES BEFORE MEAL(S) Rx# [id number] Last Released: 09/17/24 Qty/Days Supply: 180 Rx Expiration Date: 04/10/25 Refills Remainin Indication: FOR GASTROESOPHAGEAL REFLUX DISEASE OUTPT SCOPOLAMINE 0.33MG/24HR (1MG/3DAY) PATCH (Status = Discontinued) APPLY 2 PATCHES TO SKIN SITE EVERY 72 HOURS FOR MOTION SICKNESS ### Rx# [id number] Last Released: 08/27/24 Qty/Days Supply: 60 Rx Expiration Date: 06/17/25 Refills Remainin Indication: FOR MOTION SICKNESS OUTPT SCOPOLAMINE 0.33MG/24HR (1MG/3DAY) PATCH (Status = Active) APPLY 2 PATCHES TO SKIN SITE EVERY 72 HOURS FOR MOTION SICKNESS Rx# [id number] Last Released: 09/24/24 Qty/Days Supply: 05/26 Rx Expiration Date: 08/25/25 Refills Remainin Indication: FOR MOTION SICKNESS OUTPT SUCRALFATE 1GM TAB (Status = Discontinued) TAKE ONE TABLET BY MOUTH EVERY 6 HOURS FOR DUODENAL ULCER - TAKE ON AN EMPTY STOMACH. Rx# [id number] Last Released: 06/30/24 Qty/Days Supply: 360/90 Rx Expiration Date: 06/29/25 Refills Remainin Indication: FOR DUODENAL ULCER OUTPT SUCRALFATE 1GM TAB (Status = Discontinued) TAKE ONE TABLET BY MOUTH EVERY 6 HOURS FOR DUODENAL ULCER - TAKE ON AN EMPTY STOMACH. Rx# [id number] Last Released: 09/07/24 Qty/Days Supply: 360/90 Rx Expiration Date: 08/25/25 Refills Remainin Indication: FOR DUODENAL ULCER OUTPT TAMSULOSIN HCL 0.4MG CAP (Status = Active/Suspended) TAKE ONE CAPSULE BY MOUTH EVERY EVENING APPROXIMATELY 30 MINUTES AFTER THE SAME MEAL EACH DAY (FOR PROSTATE) Rx# [id number] Last Released: 07/31/24 Qty/Days Supply: 90/90 Rx Expiration Date: 06/29/25 Refills Remainin OUTPT TERBINAFINE HCL 1% CREAM (Status = Discontinued) APPLY LIGHTLY TO AFFECTED AREA(S) TWICE A DAY FOR FUNGAL SKIN INFECTION Rx# [id number] Last Released: 06/21/24 Qty/Days Supply: 120/90 Rx Expiration Date: 04/10/25 Refills Remainin Indication: FOR FUNGAL SKIN INFECTION OUTPT TERBINAFINE HCL 1% CREAM (Status = Active/Suspended) APPLY LIGHTLY TO AFFECTED AREA(S) TWICE A DAY FOR FUNGAL SKIN INFECTION Rx# [id number] Last Released: 09/21/24 Qty/Days Supply: 120/90 Rx Expiration Date: 08/25/25 Refills Remainin Indication: FOR FUNGAL SKIN INFECTION OUTPT TRIAMCINOLONE ACETONIDE 0.1% OINT (Status = Active) APPLY LIGHTLY TO AFFECTED AREA(S) TWICE A DAY FOR CONTACT DERMATITIS TO AREAS OF ITCHY RASH NEEDED. FOR EXTERNAL USE ONLY. Rx# [id number] Last Released: 09/14/24 Qty/Days Supply: 80/30 Rx Expiration Date: 04/10/25 Refills Remainin Indication: FOR CONTACT DERMATITIS SUPPLIES OUTPT ALCOHOL PREP PAD (Status = Active/Suspended) USE/APPLY PAD TO AFFECTED AREA(S) FOUR TIMES A DAY FOR WOUND CARE Rx# [id number] Last Released: 09/14/24 Qty/Days Supply: / Rx Expiration Date: 04/10/25 Refills Remainin Indication: FOR WOUND CARE OUTPT GLUCOSE SENSOR FREESTYLE BRADLYE 2 (Status = Discontinued) USE SENSOR EVERY 2 WEEKS FOR BLOOD SUGAR MONITORING CHANGE SENSOR/SITE EVERY 14 DAYS. TO REPLACE SENSOR FOR ANY REASON OR FOR TECHNICAL HELP PLEASE CALL [employer] DESK: -SPECIFIC PHONE NUMBER: [phone]). Rx# [id number] Last Released: 08/07/24 Qty/Days Supply: 09/24 Rx Expiration Date: 04/10/25 Refills Remainin Indication: FOR BLOOD SUGAR MONITORING OUTPT GLUCOSE SENSOR FREESTYLE BRADLEY 2 (Status = Active/Suspended) USE SENSOR EVERY 2 WEEKS FOR BLOOD SUGAR MONITORING CHANGE SENSOR/SITE EVERY 14 DAYS. TO REPLACE SENSOR FOR ANY REASON OR FOR TECHNICAL HELP PLEASE CALL [employer] DESK: -SPECIFIC PHONE NUMBER: [phone]). Rx# [id number] Last Released: 09/21/24 Qty/Days Supply: 09/24 Rx Expiration Date: 08/25/25 Refills Remainin Indication: FOR BLOOD SUGAR MONITORING OUTPT INSULIN SYRINGE 1ML 30G 12MM (Status = Discontinued) USE 1 SYRINGE UNDER THE SKIN ONCE A DAY FOR USE WITH INSULIN TO CONTROL BLOOD SUGAR. Rx# [id number] Last Released: 08/18/24 Qty/Days Supply: 100/90 Rx Expiration Date: 09/04/24 Refills Remainin OUTPT INSULIN SYRINGE 1ML 30G 12MM (Status = Active/Suspended) USE 1 SYRINGE UNDER THE SKIN ONCE A DAY FOR USE WITH INSULIN TO CONTROL BLOOD SUGAR. Rx# [id number] Last Released: Qty/Days Supply: 100/90 Rx Expiration Date: 08/25/25 Refills Remainin OUTPT NEEDLE,PEN 31G,5MM (Status = Active/Suspended) USE 1 NEEDLE UNDER THE SKIN THREE TIMES A DAY BEFORE MEALS WITH NOVOLOG FLEXPEN Rx# [id number] Last Released: 09/09/24 Qty/Days Supply: 300/90 Rx Expiration Date: 04/10/25 Refills Remainin PHARMACY TERMS AND POSSIBLE PATIENT ACTIONS INPT = [facility] inpatient order IV = [facility] intravenous medication OUTPT = [facility] outpatient prescription PHARMACY POSSIBLE PATIENT TERMS EXPLANATION ACTIONS -------- --- ACTIVE A prescription that can be If you have refills, filled at the local [facility] pharmacy. you may request a refill of this prescription from your [facility] pharmacy. CLINIC A medication you received during If you have questions a visit to a [facility] clinic or about this medication emergency department. contact your [facility] healthcare team. DISCONTINUED A prescription your provider has Contact your [facility] stopped. It is no longer healthcare team if you available to be sent to you or need more of this picked up at the [facility] pharmacy medication. window. A prescription which is [...] the [facility]. Or, it may be an oxrn-[id number] (OTC), herbal, dietary supplements or sample medication. [...] An active prescription that is Contact your [facility] not scheduled to be filled yet. pharmacy if you need You should receive it before this medication now. you run out. ======== Medication list reviewed with Patient Patient/Caregiver reports taking medications as ordered. IS PATIENT TAKING ANY OVER THE COUNTER MEDICATIONS, SUCH VITAMINS OR HERBAL SUPPLEMENTS, INCLUDING ANY MEDICATIONS PRESCRIBED BY ANOTHER PHYSICIAN? Yes, List: Centrum silver, Vitamin B12, Probiotic Does patient have any new allergies to report since last visit? NO VITALS: TEMPERATURE: 97.8 F [36.6 C] (06/28/2024 10:01) BP: 137/71 (06/28/2024 10:01) RESP: 18 (06/28/2024 10:01) PULSE: 68 (06/28/2024 10:01) HT: 70 in [177.8 cm] (03/30/2019 14:05) WT: 179.3 lb [81.33 kg] (06/28/2024 10:01) BMI: 25.8 PAIN ASSESSMENT: (Most Recent Pain Score in Vitals Package: 4 (06/28/2024 10:01) ) The patient indicated that they and [...] chickenpox, or zoster in last 30 days. Patient reports no pain at this visit. Pain Score = 0. STRESS: Thank you for your service. Now let us serve you. At the [facility], we strive to provide you with [...] Not At All SPIRITUAL ASSESSMENT: Are there adventism practices or spiritual concerns you want the burnisher, your physician, and other health care team members to immediately know about? No Patient advised to call the clinic for any concerns, questions, or symptoms. Patient and/or caregiver verbalized understanding of plan of care. Per [facility] Directive 1605.06, wristband documentation: Patient wristband was removed and destroyed by (staff name) Stephania Vyas and placed in the designated THYME-It bin. RHS Screen - VS: RHS Screen Session Format: Face to Face Environmental Check Upon inquiry, the individual reports that the environment is safe to proceed. Informed Consent to Screen and Document The individual consents to proceed with screening. The individual consents to documentation of responses. PRIMARY SCREEN: In the past 12 months, how often did a current or former intimate partner (e.g., boyfriend, girlfriend, , , sexual partner): 1. Scream or curse at you Never 2. Insult or talk down to you Never 3. Threaten you with harm Never 4. Physically hurt you Never 5. Force or pressure you to have sexual contact against your will, or when you were unable to say no Never The HITS tool (items 1-4 above) is [place] copyright protected by Amadeo London MD, and the user has full rights to use it throughout the [place] system. PRIMARY SCREEN RESULT: The Primary Screen is NEGATIVE. The individual answered never to all forms of IPV above (i.e., answered never to all 5 items) The individual accepts education and/or resources: No EDUCATION: The individual indicated readiness to learn. Education offered during this session as noted above. The individual indicated understanding by asking relevant questions and making appropriate comments. No barriers to learning were observed or identified. Advanced Directive Screen/Cruise Counselor: ADVANCE DIRECTIVE SCREENING: I asked if the patient has an advance directive, and determined that: Patient has an Advance Directive. Patient does not wish to make any changes to the Advance Directive at this time. ADVANCE DIRECTIVE NOTIFICATION I did not provide the patient with written notification about advance directives because States has a advanced directive in place Level of understanding: Good Pain Assessment: - PAIN ASSESSMENT: .. Patient reports no pain at this visit. Pain Score = 0. Patient's self identified pain goal: 0 VVC DIGITAL DIVIDE CAPABILITY REMINDER: Patient is not interested in VVC at this time. 'S RIGHT TO DECLINE STATEMENT [place] understands they have the right to decline the use of Tele[employer] Technology at any time without adverse affects on their continued access to healthcare. Patient/Nurse Interview: * * Patient stated that adequate information was received regarding the condition and/or treatment. [facility] - PHP MAP: PERSONAL HEALTH PLAN INVENTORY & MAP 's Response: Get to feeling better so can do the things he wants to. Eye Care At-Risk Screen - L,N,PH,U: Patient identified to be at risk for the following eye condition(s): DIABETIC RETINOPATHY: Diabetes Diagnosis Information: Encounter Diagnosis: 05/14/2024@09:30 E11.9 (ICD-10-CM) Type 2 Diabetes Mellitus without Complications rank: PRIMARY Prov. Narr. - Type 2 Diabetes Mellitus without Complications MACULAR DEGENERATION: Macular Degeneration Risk Factors Information: Reminder Term: [facility]-AMD RISK FACTORS Problem Diagnosis: 06/14/2024 I25.10 (ICD-10-CM) Atherosclerotic Heart Disease of [place] Coronary Artery without Angina Pectoris Date Entered: 06/14/2024; Date Last Modified: 06/14/2024 Status: ACTIVE; Priority: UNDEFINED Prov. Narr. - CAD - Coronary Artery Disease ([facility] [id number]) Action: No Referral Ordered: Eye exam completed elsewhere by an Data Integrity Specialist or Cut Off Machine Unloader Diabetic retinal exam result: Negative for Retinopathy Date: August, ? Exact date is unknown Location: [facility], [facility] Comment: Dr. Walsh Bilateral cataract and lens placement 2 years ago. /felisha/ STEPHANIA VYAS LPN [facility] Signed: 09/30/2024 10:42 STEPHANIA VYAS [facility]
--- OUTSIDE RECORDS SUMMARY | 2024-10-05 06:30 | XMS_ITS | Encounter Summary ---
Author Name [facility] Organization [facility] Address [address] [place] [address] Care Team Providers Care Twill Cutter Name Role Phone NUR, ANITHA Primary Care [...] AETNA POINT OF SERVICE MHBP Sep 26, [id number] SURRITTFIDEL Abdullahi PATIENT AETNA POINT OF SERVICE MHBP POS Sep 26, 2017 [id number] [phone] SURRITTFIDEL Abdullahi PATIENT AETNA MEDICARE SECONDARY (NO B EXC) MHBP* Jul 28, 2017 [id number] SURRITTFIDEL Abdullahi PATIENT AETNA (MAILHANDL ERS) MEDICARE SECONDARY (NO B EXC) MHBP Sep 26, [id number] SURRIFIDEL INIGUEZ PATIENT AETNA-MHBP POINT OF SERVICE MHBP Jul 28, 2017 [id number] [id number] SURRITTE, FDIEL PATIENT AETNA-MHBP POINT OF SERVICE MHBP Jul 28, 2017 [id number] SURRITTE, FIDEL PATIENT [place] ([id number]) PRESCRIPT ION [id number] Jul 28, 2023 [id number] [phone] SURRITTE, FIDEL PATIENT [place] ([id number]) PRESCRIPT ION MHBP Jul 28, 2017 [id number] SURRITTE, FIDEL PATIENT [place] ([id number]) PRESCRIPT ION MHBP Jul 28, 2017 [id number] SURRITTE, FIDEL PATIENT [place] ([id number]) RX PRESCRIPT ION MHBP Sep 26, 2017 [id number] [phone] SURRITTE, FIDEL PATIENT MEDICARE ([facility]) MEDICARE (M) PART A May 28, 2008 PART A [id number] SURRITTE, FIDEL PATIENT MEDICARE ([facility]) MEDICARE (M) PART A May 28, 2008 PART A [id number] SURRITTE, FIDEL PATIENT MEDICARE ([facility]) MEDICARE (M) PART A May 28, 2008 PART A [id number] [phone] SURRITTE, FIDEL PATIENT MEDICARE (WNR) MEDICARE (M) PART A May 28, 2008 PART A [id number] SURRITTE, FIDEL PATIENT MEDICARE ([facility]) MEDICARE () PART A May 28, 2008 PART A [id number] SURRITTE, FIDEL PATIENT MEDICARE ([facility]) MEDICARE (M) PART A May 28, 2008 PART A [id number] SURRITTE, FIDEL PATIENT MEDICARE PART D (WNR) MEDICARE (M) PART D Jul 28, 2023 PART D [id number] [phone] SURRITTE, FIDEL PATIENT Selected Encounter This section includes the information on record at ID for the Encounter. Date/Time Encounter Type Encounter Description Reason Provider Source Oct 05, 2024 11:30 AM MTMS BY PHARM SAIMAL 15 MIN CLINICAL PHARMACY ICD-10-CM E11.40 Type 2 diabetes mellitus with diabetic neuropathy, gloria FRANKY BAKER IHKaylen Encounter Template Text not used by ID Assessments - Encounter Diagnoses This section includes the primary and secondary diagnoses documented for the Encounter. Date/Time Primary/Secondary Diagnosis Diagnosis Name Provider Source Oct 05, 2024 12:58 PM PRIMARY Type 2 diabetes mellitus with diabetic neuropathy, gloria SAAD,FRANKY Freda [facility]ij[facility] Oct 05, 2024 12:58 PM SECONDARY Gastro-esophageal reflux disease without esophagitis FRANKY BAKER [facility] Oct 05, 2024 12:58 PM SECONDARY Hyperlipidemia, unspecified FRANKY BAKER [facility] Plan of Treatment: Future Appointments (+ 6 months) and Future Tests (+/- 45 days) The Plan of Treatment section includes future care activities for the patient [facility] This section includes future appointments and future orders which are active, pending or scheduled. Future Appointments This section includes appointments that were scheduled to occur 6 months from the date of the Encounter, up to a maximum of 20 appointments. The data comes from all ID treatment facilities. Appointment Date/Time Appointment Type Appointme nt Facility Name Oct 11, 2024 09:00 AM AMBULATORY - MEDICINE [facility] Oct 21, 2024 09:30 AM AMBULATORY - MEDICINE [facility] Nov 23, 2024 11:30 AM AMBULATORY - MEDICINE [facility] December 07, 2024 10:00 AM AM[place] [facility] December 22, 2024 08:00 AM AM[place]ULATORY [place] [facility] Jan 04, 2025 11:15 AM AMBULATORY [place]IC[place] [facility] Jan 05, 2025 10:30 AM AM[place]ULATORY [place] [facility] Jan 17, 2025 03:00 PM AMBULATORY - [place] [facility] Jan 18, 2025 10:15 AM AMBULATORY - [place] [facility] Jan 19, 2025 09:45 AM AMBULATORY - MEDICINE [facility] Lab Results: +/- 30 days of the encounter This section includes the Chemistry and Hematology Lab Results on record with ID for the patient. Radiology Reports and Pathology Reports are provided separately, in subsequent sections. Lab Results This section contains the Chemistry/Hematology Results that were resulted 30 days before or 30 daysafter the date of the Encounter. Date/Time Source Result Type Result - Unit Interpretation Reference Range Specimen Type Comment Oct 11, 2024 08:10 AM [facility] IRON PLASMA Specimen Type: PLASMA No comment entered. Ordering Provider: FRANKY BAKER Report Released Date/Time: Oct 05, 2024 12:32 PM Reporting Lab: [place] [facility] [address] [place] [address] Performing Lab: [place] [facility] [address] [place] [address] IRON 78 ug/dL 65-175 Oct 11, 2024 08:10 AM [facility] DIRECT LDL (MA-PB) PLASMA Specimen Type: PLASM A No comment entered. Ordering Provider: FRANKY BAKER Report Released Date/Time: Oct 05, 2024 12:32 PM Reporting Lab: [place] [facility] [address] [place] [address] Performing Lab: [place] [facility] [address] [place] [address] DIRECT LDL 46.3 mg/dL 0-99.9 Oct 11, 2024 08:10 AM [facility] CHOLESTEROL PANEL (PB) PLASMA Specimen Type: P LASMA No comment entered. Ordering Provider: FRANKY BAKER Report Released Date/Time: Oct 05, 2024 12:32 PM Reporting Lab: [place] [facility] [address] [place] [address] Performing Lab: [place] [facility] [address] [place] [address] CHOLESTEROL 103 mg/dL 0-200 TRIGLYCERIDE 44 mg/dL 0-150 CALCULATED LDL 44.6 mg/dL HDL(New) 49.6 mg/dL H >40 HDL % OF TOTAL CHOLESTEROL (PB) 48.2 >25 Oct 11, 2024 08:10 AM [facility] VITAMIN D, 25-HYDROXY SERUM Specimen Type: SE RUM No comment entered. Ordering Provider: FRANKY BAKER Report Released Date/Time: Oct 05, 2024 12:32 PM Reporting Lab: [place] [facility] [address] [place] [address] Performing Lab: [place] [facility] [address] [place] [address] VITAMIN D, 25-HYDROXY 65.8 ng/mL 30-96 Oct 11, 2024 08:10 AM [facility] MAGNESIUM PLASMA Specimen Typ e: PLASMA No comment entered. Ordering Provider: FRANKY BAKER Report Released Date/Time: Oct 05, 2024 12:32 PM Reporting Lab: [place] [facility] [address] [place] [address] Performing Lab: [place] [facility] [address] [place] [address] MAGNESIUM 2.00 mg/dL 1.6-2.6 Oct 11, 2024 08:10 AM [facility] URINE ALBUMIN PROFILE-ih (PB) URINE Specimen Type: URINE No comment entered. Ordering Provider: FRANKY BAKER Report Released Date/Time: Oct 05, 2024 12:32 PM Reporting Lab: [place] [facility] [address] [place] [address] Performing Lab: [place] [facility] [address] [place] [address] URINE ALBUMIN (PB-STL) 11.62 mg/L 0-30 uACR (PB-MA) 21.10 ug/mg CREATININE URINE/OTHERS 55.06 mg/dL Oct 11, 2024 08:10 AM [facility] HGA1C BLOOD Specimen Type: BLOOD No comment entered. Ordering Provider: FRANKY BAKER Report Released Date/Time: Oct 05, 2024 12:32 PM Reporting Lab: [place] [facility] [address] [place] [address] Performing Lab: [place] [facility] [address] [place] [address] HGA1C 7.1 H 4.0-6.0 Oct 11, 2024 08:10 AM [facility] FOLATE (PB) SERUM Specimen Typ e: SERUM No comment entered. Ordering Provider: FRANKY BAKER Report Released Date/Time: Oct 05, 2024 12:32 PM Reporting Lab: [place] [facility] [address] [place] [address] Performing Lab: [place] [facility] [address] [place] [address] FOLATE (PB) 14.7 ng/mL 7-20 Oct 11, 2024 08:10 AM [facility] COMPREHENSIVE METABOLIC PANEL PLASMA Specimen Type: PLASMA No comment entered. Ordering Provider: FRANKY BAKER Report Released Date/Time: Oct 05, 2024 12:32 PM Reporting Lab: [place] [facility] [address] [place] [address] Performing Lab: [place] [facility] [address] [place] [address] CREATININE 0.86 mg/dL 0.7-1.3 UREA NITROGEN 11 [...] 2020) 87 Oct 11, 2024 08:10 AM [facility] B12 SERUM Specimen Type: SERUM No comment entered. Ordering Provider: FRANKY BAKER Report Released Date/Time: Oct 05, 2024 12:32 PM Reporting Lab: [place] [facility] [address] [place] [address] Performing Lab: [place] [facility] [address] [place] [address] B12 507 pg/mL 213-816 Oct 11, 2024 08:10 AM [facility] CBC BLOOD Specimen Type: BLOOD No comment entered. Ordering Provider: FRANKY BAKER Report Released Date/Time: Oct 05, 2024 12:32 PM Reporting Lab: [place] [facility] [address] [place] [address] Performing Lab: SHAREE THOMPSON [facility] [address] [place] [address] WBC 6.4 10*3/uL 3.6-11.2 RBC 4.28 10*6/uL [...] GRANS, AUTO ABS 0.01 10*3/uL 0. 00-0.05 Social History: Smoking Status (Most current) and Tobacco Use (All prior to encounter date) This section includes the most current, and the historical, smoking and tobacco- related health factors from the ID facility where the Encounter took place. Current Smoking Status This section includes the most current smoking, or tobacco-related health factor, from the ID facility where the Encounter took place. Date/Time Current Smoking Status Comment Facil ity Feb 02, 2024 08:30 AM ID-TOBACCO FORMER USER [facility] Tobacco Use History This section includes a history of the smoking, or tobacco-related health factors, that were collected on or before the date of the Encounter. The data comes from the ID facility where the Encounter took place. Date/Time Smoking Status/Tobacco Use Comment F acility Feb 02, 2024 08:30 AM ID-TOBACCO QUIT 15 YRS OR MORE [facility] Feb 17, 2023 10:30 AM VA-TOBACCO FORMER USER [facility] Feb 17, 2023 10:30 AM VA-TOBACCO QUIT 15 YRS OR MORE [facility] Feb 20, 2022 10:00 AM VA-TOBACCO FORMER USER [facility] Feb 20, 2022 10:00 AM VA-TOBACCO QUIT 15 YRS OR MORE [facility] Feb 17, 2019 10:44 AM VA-TOBACCO FORMER USER [facility] Feb 17, 2019 10:44 AM VA-TOBACCO QUIT 15 YRS OR MORE [facility] Feb 15, 2019 09:43 AM VA-TOBACCO FORMER USER [facility] Feb 15, 2019 09:43 AM VA-TOBACCO QUIT 15 YRS OR MORE [facility] Apr 08, 2018 01:31 PM QUIT TOBACCO >7 YEARS AGO [facility] Oct 28, 2017 08:48 AM QUIT TOBACCO >7 YEARS AGO [facility] May 28, 2017 11:33 AM QUIT TOBACCO >7 YEARS AGO [facility] May 17, 2008 08:50 AM QUIT TOBACCO >7 YEARS AGO [facility] Oct 30, 2007 08:52 AM QUIT TOBACCO >7 YEARS AGO [facility] Mar 09, 2007 08:13 AM QUIT TOBACCO >7 YEARS AGO [facility] Jun 11, 2005 08:28 AM LIFETIME NON-TOBACCO USER [facility] Apr 08, 2005 10:40 AM CURRENT NON-TOBACC O USER-HX OF USE [facility] Oct 05, 2004 11:10 AM CURRENT NON-TOBACC O USER-HX OF USE [facility] Jun 29, 2004 08:36 AM CURRENT NON-TOBACC O USER-HX OF USE [facility] Dec 30, 2003 11:01 AM CURRENT NON-TOBACC O USER-HX OF USE [facility] Jul 15, 2003 11:11 AM CURRENT NON-TOBACC O USER-HX OF USE quit Jul 1998 [facility] Dec 27, 2002 12:57 PM CURRENT NON-TOBACC O USER-HX OF USE [facility] Mar 31, 2002 10:19 AM CURRENT NON-TOBACC O USER-HX OF USE [facility] Sep 15, 2001 01:22 PM CURRENT NON-TOBACC O USER-HX OF USE [facility] Feb 16, 2001 03:11 PM CURRENT NON-TOBACC O USER-HX OF USE quit 2 yrs ago, 1 day [facility] Encounter Notes: All associated encounter notes This section contains the clinical notes associated to the Encounter. Date/Time Encounter Note(s) Provider Source Oct 14, 2024 07:23 AM GENERAL MEDICINE N OTE: LOCAL TITLE: General Note PB STANDARD TITLE: GENERAL MEDICINE NOTE DATE OF NOTE: OCT 14, 2024@07:23 ENTRY DATE: OCT 14, 2024@07:23:27 AUTHOR: LUIS MANUEL BURNETT EXP COSIGNER: URGENCY: STATUS: COMPLETED Dr. Baker ordered labs and he is following him next appointment is October 19 no new orders at this time /felisha/ NOÉ Smith, MSN, Randall Bonillahing [facility] Signed: 10/14/2024 07:24 LUIS MANUEL BURNETT [facility] Oct 05, 2024 12:36 PM PHARMACY NOTE: LOCAL TITLE: PHARMACY CHRONIC DISEASE STATE MANAGEMENT PB STANDARD TITLE: PHARMACY NOTE DATE OF NOTE: OCT 05, 2024@12:36 ENTRY DATE: OCT 05, 2024@12:36:19 AUTHOR: FRANKY BAKER EXP COSIGNER: URGENCY: STATUS: COMPLETED STANDARD TITLE: Re-teaching, re-evaluation, and Discussion of Continuous Blood Glucose [...] BPH - hip arthritis - impacted cerumen Demographics:79 y/o Male - BMI:27.20 - WT:90.49KG - B/P:142/60 on Sep in clinic, 136/68 on 09 APR 2024 per clinic, 139/74 on 07 FEB 2024 in clinic, 160/80 on Aug in clinic, 138/71 on 28 MAY 2023 in clinic and prior was 134/50 on 26 NOV 2022 in clinic - last HA1c:8.6 on 26 JAN 2024, 8.3 on 22 SEP 2023, 7.4 on 10 FEB 2023 and 8.1 on 26 NOV 2022 -last measured glucose: 121 on Aug, 146 on 26 JAN 2024, decreased form 161 on 22 SEP 2023 Allergies:Patient has answered NKA - confirmed Patient Weight History - Last Four 1. 189.2 lbs. / 85.8 kg. on APR 09, 2024@09:17:17 2. 199.1 lbs. / 90.3 kg. on FEB 09, 2024@09:47 3. 198.4 lbs. / 90.0 kg. on FEB 02, 2024@08:43:15 4. 198.7 lbs. / 90.1 kg. on JAN 08, 2024@15:09:47 Pertinent Labs: HGB A1C Collection DT Specimen Test Name Result Units Ref Range 01/26/2024 08:03 BLOOD HGA1C 8.6 H % 4.0 - 6.0 09/22/2023 08:03 BLOOD HGA1C 8.3 H % 4.0 - 6.0 02/10/2023 07:55 BLOOD HGA1C 7.4 H % 4.0 - 6.0 LIVER FUNCTION PANEL Labs: triglyceride cholesterol LDL values are high TRIGLYCERIDE 27 mg/dL 01/26/2024 08:03 CHOLESTEROL 103 mg/dL 01/26/2024 08:03 HDL(New) 45.9 H mg/dL 01/26/2024 08:03 DIRECT LDL 47.7 mg/dL 01/26/2024 08:03 CALCULATED LDL 51.7 mg/dL 01/26/2024 08:03 HDL % OF TOTAL CHOLESTEROL (PB) 44.6 % 01/26/2024 08:03 DIRECT LDL 47.7 mg/dL 01/26/2024 08:03 Liver Function Tests: values are within acceptable limit SGOT: 18 U/L (01/26/24 08:03) SGPT: 16 U/L (01/26/24 08:03) Chemistry: Sodium: SODIUM 133 L mEq/L 01/26/2024 08:03 POTASSIUM 4.1 mEq/L 01/26/2024 08:03 Chloride: 99 mEq/L (01/26/24 08:03) BUN: 11 mg/dL (01/26/24 08:03) Glucose: GLUCOSE 116 H mg/dL 01/26/2024 08:03 ALT/SGPT 16 U/L 01/26/2024 08:03 AST/SGOT 18 U/L 01/26/2024 08:03 Renal function: Creatinine Clearance: 60.2mL/min CREATININE 1.01 mg/dL 01/26/2024 08:03 EGFR (CKD-EPI 2020) 75 01/26/2024 08:03 No MICRAL/CREAT RATIO (STL) data found -Report of latest blood glucose: latest blood glucose values per lab was 121 on Aug, 146 on 26 JAN 2024, decreased from 161 on 22 SEP 2023 increased from 118 on 24 FEB 2023 and prior was 255 [not-fasting] on 10 FEB 2023 and prior was 200 on 27 DEC 2022 [not-fasting], decreased from early NOVEMBER 2022 at 251 -pt. states last B/Gs have been in the 120s to 170s range, much decreased from 200 to 220 range in early JAN 2023 -Pt. also continues to have slightly low sodium, which was partially due to hydrochlorothiazide, which was decreased to 12.5 mg and now d/c'ed by green meat grader; also has consumed too much tea, coffee, soda, [caffeine] and has increased water intake; pt. will decrease electrolyte beverages to 1/3 with 2/3 water and limit to no more than 1500ml; patient has decreased fluid consumption to 1000 to 1500ml/day for the last several months -Changed loratadine to cetirazine 10 mg daily and add added fluticasone nasal at 2 sprays each nostril to go with montelukast, azelastine, and ipratropium nasal daily for rhinitis symptoms and wheezing Pt. to cont, insulin glargine at 50-54 units in am and aspart 8-10 units 3 times daily 15 min. before meals and may increae or decrease per accurate CGM monitoring and dietary consumption; started empagliflozin at 12.5mg [1/2 tab.] daily with all warnings and pre-cautions and necessity to keep gentitourinary area clean and report anyy problems promptly to clinic, but cause increase in dizziness and was stopped -Pt. had stent placemant for coronary angiogram and balloon angioplasty was performed to marginal branch for non-ST elevation myocardial infarction (NSTEMI) last winter; pt. did have transient bradycardia post angioplasty therefore beta-blockers was discontinued and heart rate and blood pressure has improved; gave pt. new B/P monitor for home use with directions and will get measurement at cont. clinic appts. -lasyt B/P per home was 176/69 on Sep [place] participated in a formatted refresher of CGM re-teaching and re-explination session for the Va[employer]Style-2 Flash system via a trained and certified specialist in diabetes education The Continuous Blood Glucose Monitoring Session again covered the following goals and topics, as a refresher: - Main Objective: Provide patient with a re-education session that will assist the in having a better understanding of their CGM use and equipment management - Topics covered: reminded of the indications, contraindications, warnings [concerning use of asa and vitamin C [> trace amounts], cautions, alarms, safety information, interfering substances and limitations; also reminded him of start up time of 1 hour before [...] sensors; pt. cautioned to not run out 20. Continuous Glucose Monitoring (CGM) devices no longer need to be removed prior to examinations involving ionizing radiation or to all MRI examinations TIR:79%; IQR:22%/78%; ave. scans/day:12; BT: 1%; AT:76%; VHT:2%; VLT:1%; coefficient of stormy.-29%; TBR was <1%; TAR was less than 3%; STD was less than 5; GMI at 70-180 is 75% indicates good use of tool; also reviewed some additional points of CGM teaching for pina freestyle-2 and basal and prandial insulin according to prior reflux extract of data; pt. has cont. use of tool overall and B/Gs have continued to be reduced -Target for Time in Range: Above 250 mg/dL = < 5% / Above 180 mg/dL = < 25% / Target Range (70 - 180 mg/dL) = > 70% / Less than 70 mg/dL = < 4% / Less than 54 mg/dL = < 1% - Self-monitoring: already checked for CGM accuracy and reviewed at start- up and on this appt. and on tri-monthly basis; also refreshed patient on the different signs and symptoms of hypoglycemia/hyperglycemia; identified the different factors that could lead to low or high B/Gs and refreshed spouse/caregiver's memory on dietary issues and meal planning - Conclusion: At the end of the session, applications trainer asked for final questions from the and/or caregiver and reviewed educational handouts that had previously provided a detailed paper version of information that was presented during the original teaching session, including dietary and meal planning information PATIENT HEALTH EDUCATION SUMMARY: Patient and caregiver were encouraged to ask additional questions if they did not understand any information and read back was completed; pt's spouse has referenced the loaner manual given for home study and returned, noted adhesion guide, and reference for 's hot-line phone number for problems/issues encountered at a later time were provided; patient and spouse/caregiver has demonstrated the ability to change sensors when required every 2 weeks [14 days] The patient and caregiver participated appropriately during the re-training session Topics re-taught: Use of the FreeStyle [...] to adjust his before meal time insulin aspart by 5 to 15 units now that [...] the absolute importance of dietary requirements and food issues were again stressed to both parties and also the requirement to eat consistent meals and not skip meals and eat at least a snack every 4 hours -Also as part of the discussion was a reminder of the patient's use of the chocolate packer's dedicated hot line for problem resolutions and toll-free phone number was provided by way of magnetic sticker and reminder cards -Also discussed was patient's scanning frequency at test inspection engineer, before and after meals, early evening, and at bedtime at a minimum; patient's spouse/caregiver has been doing a good job of reminding pt. and monitoring frequency Time spent on teaching session: 51 minutes - phone - next f/u appt. for Sep, but to review labs from Sep RTC: every 3 mon. FOR sch. landeros. appts. TO ACCESS DATA, NEXT ON Dec, unless issues arise, but can ask further [...] to keep gentitourinary area clean and report any problems promptly to clinic, but recently had increased dizziness issue and it was stopped / patient had f/u to CGM use and determine values for last months / check on fluid situation / also saw pt. and spouse/caregiver to re-train, answer further questions, and check sodium and chloride lab values; pt. is continuing CGM use and patient and SO were satisfied with session and all questions and concerns were addressed to pt's satisfaction / pt. did return for re- consideration of decreasing electrolyte values and also will return to recheck lab values for low sodium and chloride issues, which had improved at prior labs, but needs new labs / discontinued hydrochlorothiazide and stressed to pt. to aviod all cafeine containing beverages and limit fliuds / sodium and chloride values have increased at last labs / changed simvastatin to atorvastatin 40mg per cardiology, increased pantoprazole to 40mg twice daily and reminded pt. of mod. diet for GERD, cont. tamsulosin, metoprolol tartrate, losartan, amlodipine, calcium polycarbophil, pregabalin, all 3 nasal sprays, montelukast, aspirin ETC 81 mg, and docusate; added diphenhydramine at 50mg up to 4 times daily for nagging dizziness/vertigo spells, also recently added sucralfate liquid 500 mg per 10 mL suspension, due to intense gastrointestinal and swallowing problems / patient may crash all tablet dosage forms and place in applesauce or other soft food to ingest doses, until patient has completed ECG with non-VA gastrologist for evaluation / must try to continue deep breathing and coughing due to lung wheezing and congestion to prevent pneumonia / continue CGM use / must cont. moderate exercise, shabnam. while recovering from stent placement / scopolamine patches were ordered from non-VA provider for dizziness, but only seem to be mildly effective / cont. all spec. appts. /felisha/ Sam ANDRES PACT CLINICAL OPTICAL ELEMENT COATER Signed: 10/05/2024 13:05 [facility]
--- OUTSIDE RECORDS SUMMARY | 2024-10-21 04:30 | XMS_ITS | Encounter Summary ---
Author Name [facility] [place] [facility] [place] Address [address] [place] [address] Care Team Providers Care Certified Breastfeeding Educator Name Role Phone NUR, ANITHA Primary Care [...] AETNA POINT OF SERVICE MHBP Sep 26, [id number] SURRITTFIDEL Abdullahi PATIENT AETNA POINT OF SERVICE MHBP POS Sep 26, 2017 [id number] SURRITTFIDEL Abdullahi PATIENT AETNA MEDICARE SECONDARY (NO B EXC) MHBP* Jul 28, 2017 [id number] SURRITTFIDEL Abdullahi PATIENT AETNA (MAILHANDL ERS) MEDICARE SECONDARY (NO B EXC) [facility]BP Sep 26, [id number] [phone] SURRIFIDEL INIGUEZ PATIENT AETNA-MHBP POINT OF SERVICE MHBP Jul 28, 2017 [id number] SURRITTE, FIDEL PATIENT AETNA-MHBP POINT OF SERVICE MHBP Jul 28, 2017 [id number] SURRITTE, FIDEL PATIENT [place] ([id number]) PRESCRIPT ION [id number] Jul 28, 2023 [id number] SURRITTE, FIDEL PATIENT [place] ([id number]) PRESCRIPT ION MHBP Jul 28, 2017 [id number] [phone] SURRITTE, FIDEL PATIENT [place]ARK ([id number]) PRESCRIPT ION MHBP Jul 28, 2017 [id number] SURRITTE, FIDEL PATIENT CAREMARK ([id number]) RX PRESCRIPT ION MHBP Sep 26, 2017 [id number] [phone] SURRITTE, FIDEL PATIENT MEDICARE ([facility]) MEDICARE (M) PART A May 28, 2008 PART A [id number] SURRITTE, FIDEL PATIENT MEDICARE ([facility]) MEDICARE (M) PART A May 28, 2008 PART A [id number] SURRITTE, FIDEL PATIENT MEDICARE ([facility]) MEDICARE (M) PART A May 28, 2008 PART A [id number] [phone] SURRITTE, FIDEL PATIENT MEDICARE (WNR) MEDICARE (M) PART A May 28, 2008 PART A [id number] [phone] SURRITTE, FIDEL PATIENT MEDICARE ([facility]) MEDICARE () PART A May 28, 2008 PART A [id number] [phone] SURRITTE, FIDEL PATIENT MEDICARE ([facility]) MEDICARE (M) PART A May 28, 2008 PART A [id number] [phone] SURRITTE, FIDEL PATIENT MEDICARE PART D (WNR) MEDICARE (M) PART D Jul 28, 2023 PART D [id number] SURRITTE, FIDEL PATIENT Selected Encounter This section includes the information on record at [place] for the Encounter. Date/Time Encounter Type Encounter Description Reason Provider Source Oct 21, 2024 09:30 AM MTMS BY PHARM SAIMAL 15 MIN CLINICAL PHARMACY ICD-10-CM E11.40 Type 2 diabetes mellitus with diabetic neuropathy, tamarap FRANKY NASH Kaylen Encounter Template Text not used by [place] Assessments - Encounter Diagnoses This section includes the primary and secondary diagnoses documented for the Encounter. Date/Time Primary/Secondary Diagnosis Diagnosis Name Provider Source Oct 21, 2024 09:52 AM PRIMARY Type 2 diabetes mellitus with diabetic neuropathy, unsp FRANKY NASH [place] [facility] Oct 21, 2024 09:52 AM SECONDARY Benign paroxysmal vertigo, unspecified ear [place]ANK[place] NASH [place] [facility] Oct 21, 2024 09:52 AM SECONDARY Chronic obstructive pulmonary disease, unspecified [place] [facility] Oct 21, 2024 09:52 AM SECONDARY Essential (primary) hypertension FRANKY NASH [place] [facility] Oct 21, 2024 09:52 AM SECONDARY Gastro-esophageal reflux disease without esophagitis FRANKY NASH [place] [facility] Oct 21, 2024 09:52 AM SECONDARY Hyperlipidemia, unspecified FRANKY NASH [place] [facility] Plan of Treatment: Future Appointments (+ 6 months) and Future Tests (+/- 45 days) The Plan of Treatment section includes future care activities for the patient from [facility] [place] [facility] This section includes future appointments and future orders which are active, pending or scheduled. Future Appointments This section includes appointments that were scheduled to occur 6 months from the date of the Encounter, up to a maximum of 20 appointments. The data comes from all [place] treatment facilities. Appointment Date/Time Appointment Type Appointme nt Facility Name Nov 23, 2024 11:30 AM AMBULATORY - MEDICINE [facility] December 07, 2024 10:00 AM AMBULATORY - MEDICINE [place] [facility] December 22, 2024 08:00 AM AMBULATORY - MEDICINE [place] [facility] Jan 04, 2025 11:15 AM AMBULATORY - MEDICINE [facility] Jan 05, 2025 10:30 AM AMBULATORY - MEDICINE [place] [facility] Jan 17, 2025 03:00 PM AMBULATORY - MEDICINE [place] [facility] Jan 18, 2025 10:15 AM AMBULATORY - MEDICINE [place] [facility] Jan 19, 2025 09:45 AM AMBULATORY - MEDICINE [facility] Apr 08, 2025 09:30 AM AMBULATORY - MEDICINE [facility] Active, Pending, and Scheduled Orders This section includes a listing of several types of active, pending, and scheduled orders, including clinic medications orders, diagnostic test orders, procedure orders and consult orders; where the start date of the order is 45 days before the date of the Encounter or 45 days after the date of theEncounter. The data comes from all [place] treatment facilities. Test Date/Time Test Type Test Details Facility Name November 29, 2024 02:05 PM Consult Order [facility] [id number] Cons Brush Head [facility] Choice [facility] Lab Results: +/- 30 days of the encounter This section includes the Chemistry and Hematology Lab Results on record with [place] for the patient. Radiology Reports and Pathology Reports are provided separately, in subsequent sections. Lab Results This section contains the Chemistry/Hematology Results that were resulted 30 days before or 30 daysafter the date of the Encounter. Date/Time Source Result Type Result - Unit Interpretation Reference Range Specimen Type Comment Nov 10, 2024 03:08 PM [facility] URINALYSIS W/ CX REFLEX (STL-PB) URINE Specim en Type: URINE No comment entered. Ordering Provider: LUIS MANUEL [facility] Report Released Date/Time: Nov 10, 2024 02:53 PM Reporting Lab: [facility] [address] [facility] [address] Performing Lab: [facility] [address] [facility] [address] URINE COLOR Light Yellow Yellow U.BILIRUBIN NEGATIVE mg/dL Negative U.PH 7.0 5.0-8.0 APPEARANCE CLEAR Clear U.NITRITE NEGATIVE mg/dL Negative URN.GLUCOSE NORMAL mg/dL Negative URN.PROTEIN NEGATIVE mg/dL URN.UROBILINOGEN NORMAL mg/dL Normal URN.BLOOD NEGATIVE mg/dL Negative-Trace URN.KETONES NEGATIVE mg/dL Negative-Trac e URN.LEUK.EST. NEGATIVE Negative-Trace URN.SPECIFIC GRAVITY 1.013 1.005-1.029 Oct 11, 2024 08:10 AM [facility] IRON PLASM A Specimen Type: PLASMA No comment entered. Ordering Provider: FRANKY NASH Report Released Date/Time: Oct 05, 2024 12:32 PM Reporting Lab: [place] [facility] [address] [place] [address] Performing Lab: [place] [facility] [address] [place] [address] IRON 78 ug/dL 65-175 Oct 11, 2024 08:10 AM [facility] DIRECT LDL (MA-PB) PLASMA Specimen Type: PLASM A No comment entered. Ordering Provider: FRANKY NASH Report Released Date/Time: Oct 05, 2024 12:32 PM Reporting Lab: [place] [facility] [address] [place] [address] Performing Lab: [place] [facility] [address] [place] [address] DIRECT LDL 46.3 mg/dL 0-99.9 Oct 11, 2024 08:10 AM [facility] CHOLESTEROL PANEL (PB) PLASMA Specimen Type: P LASMA No comment entered. Ordering Provider: FRANKY NASH Report Released Date/Time: Oct 05, 2024 12:32 PM Reporting Lab: [place] [facility] [address] [place] [address] Performing Lab: [place] [facility] [address] [place] [address] CHOLESTEROL 103 mg/dL 0-200 TRIGLYCERIDE 44 mg/dL 0-150 CALCULATED LDL 44.6 mg/dL HDL(New) 49.6 mg/dL H >40 HDL % OF TOTAL CHOLESTEROL (PB) 48.2 >25 Oct 11, 2024 08:10 AM [facility] VITAMIN D, 25-HYDROXY SERUM Specimen Type: SE RUM No comment entered. Ordering Provider: FRANKY NASH Report Released Date/Time: Oct 05, 2024 12:32 PM Reporting Lab: [place] [facility] [address] [place] [address] Performing Lab: [place] [facility] [address] [place] [address] VITAMIN D, 25-HYDROXY 65.8 ng/mL 30-96 Oct 11, 2024 08:10 AM [facility] MAGNESIUM PLASMA Specimen Typ e: PLASMA No comment entered. Ordering Provider: FRANKY NASH Report Released Date/Time: Oct 05, 2024 12:32 PM Reporting Lab: [place] [facility] [address] [place] [address] Performing Lab: [place] [facility] [address] [place] [address] MAGNESIUM 2.00 mg/dL 1.6-2.6 Oct 11, 2024 08:10 AM [facility] URINE ALBUMIN PROFILE-ih (PB) URINE Specimen Type: URINE No comment entered. Ordering Provider: FRANKY NASH Report Released Date/Time: Oct 05, 2024 12:32 PM Reporting Lab: [place] [facility] [address] [place] [address] Performing Lab: [place] [facility] [address] [place] [address] URINE ALBUMIN (PB-STL) 11.62 mg/L 0-30 uACR (PB-MA) 21.10 ug/mg CREATININE URINE/OTHERS 55.06 mg/dL Oct 11, 2024 08:10 AM [facility] HGA1C BLOOD Specimen Type: BLOOD No comment entered. Ordering Provider: FRANKY NASH Report Released Date/Time: Oct 05, 2024 12:32 PM Reporting Lab: [place] [facility] [address] [place] [address] Performing Lab: [place] [facility] [address] [place] [address] HGA1C 7.1 H 4.0-6.0 Oct 11, 2024 08:10 AM [facility] FOLATE (PB) SERUM Specimen Typ e: SERUM No comment entered. Ordering Provider: FRANKY NASH Report Released Date/Time: Oct 05, 2024 12:32 PM Reporting Lab: [place] [facility] [address] [place] [address] Performing Lab: [place] [facility] [address] [place] [address] FOLATE (PB) 14.7 ng/mL 7-20 Oct 11, 2024 08:10 AM [facility] COMPREHENSIVE METABOLIC PANEL PLASMA Specimen Type: PLASMA No comment entered. Ordering Provider: RFANKY NASH Report Released Date/Time: Oct 05, 2024 12:32 PM Reporting Lab: [place] [facility] [address] [place] [address] Performing Lab: [place] [facility] [address] [place] [address] CREATININE 0.86 mg/dL 0.7-1.3 UREA NITROGEN 11 [...] 2020) 87 Oct 11, 2024 08:10 AM [facility] B12 SERUM Specimen Type: SERUM No comment entered. Ordering Provider: FRANKY NASH Report Released Date/Time: Oct 05, 2024 12:32 PM Reporting Lab: [place] [facility] [address] [place] [address] Performing Lab: [place] [facility] [address] [place] [address] B12 507 pg/mL 213-816 Oct 11, 2024 08:10 AM [facility] CBC BLOOD Specimen Type: BLOOD No comment entered. Ordering Provider: FRANKY NASH Report Released Date/Time: Oct 05, 2024 12:32 PM Reporting Lab: [place] [facility] [address] [place] [address] Performing Lab: [place] [facility] [address] [place] [address] WBC 6.4 10*3/uL 3.6-11.2 RBC 4.28 10*6/uL [...] and tobacco- related health factors from the [place] facility where the Encounter took place. Current Smoking Status This section includes the most current smoking, or tobacco-related health factor, from the [place] facility where the Encounter took place. Date/Time Current Smoking Status Comment Facil ity Feb 02, 2024 08:30 AM VA-TOBACCO FORMER USER [facility] Tobacco Use History This section includes a history of the smoking, or tobacco-related health factors, that were collected on or before the date of the Encounter. The data comes from the [place] facility where the Encounter took place. Date/Time Smoking Status/Tobacco Use Comment F acility Feb 02, 2024 08:30 AM VA-TOBACCO QUIT 15 YRS OR MORE [facility] [facility] Feb 17, 2023 10:30 AM VA-TOBACCO FORMER USER [place] [facility] Feb 17, 2023 10:30 AM VA-TOBACCO QUIT 15 YRS [place] MORE [facility] Feb 20, 2022 10:00 AM VA-TOBACCO FORMER USER [facility] [facility] Feb 20, 2022 10:00 AM VA-TOBACCO QUIT 15 YRS [place] MORE [facility] Feb 17, 2019 10:44 AM VA-TOBACCO FORMER USER [facility] [facility] Feb 17, 2019 10:44 AM VA-TOBACCO QUIT 15 YRS OR MORE [facility] [place] [facility] Feb 15, 2019 09:43 AM VA-TOBACCO FORMER USER [place] [facility] Feb 15, 2019 09:43 AM VA-TOBACCO QUIT 15 YRS OR MORE [facility] [place] [facility] Apr 08, 2018 01:31 PM QUIT TOBACCO >7 YEARS AGO [facility] [place] [facility] Oct 28, 2017 08:48 AM QUIT TOBACCO >7 YEARS AGO [facility] May 28, 2017 11:33 AM QUIT TOBACCO >7 YEARS AGO [facility] May 17, 2008 08:50 AM QUIT TOBACCO >7 YEARS AGO [facility] Oct 30, 2007 08:52 AM QUIT TOBACCO >7 YEARS AGO [facility] Mar 09, 2007 08:13 AM QUIT TOBACCO >7 YEARS AGO [facility] Jun 11, 2005 08:28 AM LIFETIME NON-TOBACCO USER [facility] Apr 08, 2005 10:40 AM CURRENT NON-TOBACC O USER-HX OF USE [facility] Oct 05, 2004 11:10 AM CURRENT NON-TOBACC O USER-HX OF USE [facility] Jun 29, 2004 08:36 AM CURRENT NON-TOBACC O USER-HX OF USE [facility] Dec 30, 2003 11:01 AM CURRENT NON-TOBACC O USER-HX OF USE [facility] Jul 15, 2003 11:11 AM CURRENT NON-TOBACC O USER-HX OF USE quit Jul 1998 [facility] [facility] Dec 27, 2002 12:57 PM CURRENT NON-TOBACC O USER-HX OF USE [facility] Mar 31, 2002 10:19 AM CURRENT NON-TOBACC O USER-HX OF USE [facility] Sep 15, 2001 01:22 PM CURRENT NON-TOBACC O USER-HX OF USE [facility] Feb 16, 2001 03:11 PM CURRENT NON-TOBACC O USER-HX OF USE quit 2 yrs ago, 1 pk day [facility] Encounter Notes: All associated encounter notes This section contains the clinical notes associated to the Encounter. Date/Time Encounter Note(s) Provider Source Oct 21, 2024 07:56 AM PHARMACY NOTE: LOCAL TITLE: PHARMACY CHRONIC DISEASE STATE MANAGEMENT PB STANDARD TITLE: PHARMACY NOTE DATE OF NOTE: OCT 21, 2024@07:56 ENTRY DATE: OCT 21, 2024@07:56:28 AUTHOR: FRANKY NASH COSIGNER: URGENCY: STATUS: COMPLETED PHARMACY CHRONIC DISEASE STATE MANAGEMENT PB Has ADDENDA STANDARD TITLE: Re-teaching, re-evaluation, and Discussion of [...] on 26 NOV 2022 -last measured glucose: 104 on Sep, 121 on Aug, 146 on 26 JAN [...] kg. on JAN 08, 2024@15:09:47 Pertinent Labs: -Report of latest blood glucose: latest blood glucose values per lab was 104 on Sep, 121 on Aug, 146 on 26 JAN 2024, decreased from 161 on 22 SEP 2023 increased from 118 on 24 FEB 2023 and prior was 255 [not-fasting] on 10 FEB 2023 and prior was 200 on 27 DEC 2022 [not-fasting], decreased from early NOVEMBER 2022 at 251 -pt. states last B/Gs have been in the 100s to 130s range, much decreased from 120 to 170 and prior 200 to 220 range in early JAN 2023 -Pt. also continues to have slightly low sodium, which was partially due to hydrochlorothiazide, which was decreased to 12.5 mg and now d/c'ed by bias cutting machine operator; also had consumed too much tea, coffee, soda, [caffeine] and has increased water intake; pt. will decrease electrolyte beverages to 1/3 with 2/3 water and limit to no more than 1500ml; patient has decreased fluid consumption to 1000 to 1500ml/day for the last several months and elevctrolytes have improved -Changed loratadine to cetirazine 10 mg daily and add added fluticasone nasal at 2 sprays each nostril to go with montelukast, azelastine, and ipratropium nasal daily for rhinitis symptoms and wheezing -Pt. to cont, insulin glargine at 50-54 units in am and aspart 8-10 units 3 times daily 15 min. before meals and may increae or decrease per accurate CGM monitoring and dietary consumption; started empagliflozin at 12.5mg [1/2 tab.] daily with all warnings and pre-cautions and necessity to keep gentitourinary area clean and report any problems promptly to clinic, but pt. stated it caused increase in dizziness and was stopped -Pt. [...] will get measurement at cont. clinic appts. -last B/P per home was 141/68 on Sep, decreased from 176/69 on Sep participated in a formatted refresher of CGM re-teaching and re-explination session for the [employer] FreeStyle-2 Flash system via a trained and certified [...] ionizing radiation or to all MRI examinations TIR:81%; IQR:22%/78%; ave. scans/day:12; BT: 1%; AT:77%; VHT:2%; VLT:1%; coefficient of stormy.-29%; TBR was <1%; TAR was less than 3%; STD was less than 5; GMI at 70-180 is 76% indicates good use of tool; also reviewed [...] Conclusion: At the end of the session, clinical provider trainer asked for final questions from the [...] appropriately during the re-training session Topics re-taught: use of the FreeStyle Pina-2 Flash system, prandial insulin modified usage scale, and dietary, weight, and exercise concerns, as well as lipid profile, electrolyte management, and low motility issues General Comments: -Patient [...] reminder of the patient's use of the certified medical dosimetrist's dedicated hot line for problem resolutions and toll-free phone number was provided by way of magnetic sticker and reminder cards -Also discussed was patient's scanning frequency at solution developer, before and after meals, early evening, and at bedtime at a minimum; patient's spouse/caregiver has been doing a good job of reminding pt. and monitoring frequency Time spent on teaching session: 53 minutes - f2f - next f/u appt. for 22 DECEMBER RTC: every 3 mon. for tessa. tigre. appts. TO ACCESS DATA, next on 15 DECEMBER, then Dec, unless issues arise, but can ask [...] B/Gs in the 110s to 130s range and has been more successful / cont. empagliflozin at 12.5mg daily with all warnings [...] questions, and check sodium and chloride lab values, which have improved; pt. is continuing CGM use and patient and SO were satisfied with session and all questions and concerns were addressed to pt's satisfaction / pt. did return for re-consideration of decreasing other electrolyte values and discontinued hydrochlorothiazide and stressed to pt. to aviod all cafeine containing beverages and limit fliuds; values have increased at last labs / [...] due to intense gastrointestinal and swallowing problems and pt. continues / patient may crash all tablet dosage [...] be mildly effective / cont. all spec. appts., shabnam. GI /es/ Sam ANDRES PACT CLINICAL OPTOMETRIC TECH Signed: 10/21/2024 09:52 10/21/2024 ADDENDUM STATUS: COMPLETED Concerning Fidel [id number]... 's last lab results from 11 October did not carryover into new profile and are listed as below: HGB A1C Collection DT Specimen Test Name Result Units Ref Range 10/11/2024 08:10 BLOOD HGA1C 7.1 H % 4.0 - 6.0 01/26/2024 08:03 BLOOD HGA1C 8.6 H % 4.0 - 6.0 09/22/2023 08:03 BLOOD HGA1C 8.3 H % 4.0 - 6.0 02/10/2023 07:55 BLOOD HGA1C 7.4 H % 4.0 - 6.0 Patient Weight History - Last Four 1. 176.1 lbs. / 79.9 kg. on SEP 30, 2024@10:43 2. 179.3 lbs. / 81.3 kg. on JUN 28, 2024@10:01 3. 189.2 lbs. / 85.8 kg. on APR 09, 2024@09:17:17 4. 199.1 lbs. / 90.3 kg. on FEB 09, 2024@09:47 LIVER FUNCTION PANEL Labs: triglyceride cholesterol LDL values are high TRIGLYCERIDE 44 mg/dL 10/11/2024 08:10 CHOLESTEROL 103 mg/dL 10/11/2024 08:10 HDL(New) 49.6 H mg/dL 10/11/2024 08:10 DIRECT LDL 46.3 mg/dL 10/11/2024 08:10 CALCULATED LDL 44.6 mg/dL 10/11/2024 08:10 HDL % OF TOTAL CHOLESTEROL (PB) 48.2 % 10/11/2024 08:10 DIRECT LDL 46.3 mg/dL 10/11/2024 08:10 Liver Function Tests: values are within acceptable limit SGOT: 23 U/L (10/11/24 08:10) SGPT: 18 U/L (10/11/24 08:10) Chemistry: Sodium: SODIUM 134 L mEq/L 10/11/2024 08:10 POTASSIUM 4.1 mEq/L 10/11/2024 08:10 Chloride: 100 mEq/L (10/11/24 08:10) BUN: 11 mg/dL (10/11/24 08:10) Glucose: GLUCOSE 104 H mg/dL 10/11/2024 08:10 ALT/SGPT 18 U/L 10/11/2024 08:10 AST/SGOT 23 U/L 10/11/2024 08:10 Renal function: Creatinine Clearance: 69.6mL/min CREATININE 0.86 mg/dL 10/11/2024 08:10 EGFR (CKD-EPI 2020) 87 10/11/2024 08:10 No MICRAL/CREAT RATIO (STL) data found /es/ Sam ANDRES PACT CLINICAL OPTOMETRIC TECH Signed: 10/21/2024 09:58 FRANKY NASH [facility]
--- OUTSIDE RECORDS SUMMARY | 2024-10-22 05:00 | XMS_ITS ---
Author Organization [facility] Address [address] [place] [address] Care Team Providers Care Manager Field Services Name Role Phone [facility] Pete LEON Primary Care Provider Un available Janet Samuel Unavailable [phone] [place] Unavailable Unavailable Guillermo Darden Unavailable [phone] Allergies Allergen (clinical drug ingredient) Drug/Non Drug Allergy documented on EMR Reaction Allergy Type Onset Date Status No Known Drug Allergy Unknown Drug Allergy Active REASON FOR VISIT Dysphagia, unspecified type - R13.10 (Primary) Gastroesophageal reflux disease, unspecified whetheresophagitis present - K21.9 History of coronary artery stent placement - Z95.5 History of stroke - Z86.73 Medications Medication SIG (Take, Route, Frequency, Duration) Notes Start Date End Date Status Insulin Glargine 100 UNIT/ML as directed Subcutaneous 54 ut Act carina Insulin Aspart 100 UNIT/ML as directed Subcutaneous 10ut Active Fluticasone Furoate 27.5 MCG/SPRAY 2 sprays (1 spray in each nostril) Nasally Once a day Active Docusate Sodium 100 MG 1 capsule as need ed Orally 2 x a day Active Clopidogrel Bisulfate 75 MG 1 tablet Orally Once a day Active Cetirizine HCl 10 MG 1 tablet Orally Onc e a day Active Carvedilol 3.125 MG 1 tablet with food O rally Twice a day Active Calcium Polycarbophil 625 MG 1 tablet as needed Orally 2 x daily Active Atorvastatin Calcium 40 MG 1 tablet Oral ly Once a day Active Aspirin 81 81 MG 1 tablet Orally Once a day Active Metoprolol Tartrate 25 MG 1 tablet with food Orally Twice a day Unknown amLODIPine Besylate 10 MG 1 tablet Orall y Once a day Active Meclizine HCl 25 MG 1 tablet as needed O rally q 8 hrs Unknown Simvastatin 10 MG 1 tablet in the even ing Orally Once a day Unknown NovoLOG 100 UNIT/ML as directed Subcutaneous Unknown Lantus 100 UNIT/ML as directed Subcutaneous Unknown Finasteride 5 MG 1 tablet Orally as n eeded for 30 day(s) Unknown Aspirin Adult 325 MG 1 tablet Orally Onc e a day Unknown Tamsulosin HCl 0.4 MG 1 capsule Orally O nce a day Active Scopolamine 1 MG/3DAYS 1 patch to skin b ehind the ear as needed Transdermal 33mg Active Ipratropium Leslie HFA 17 MCG/ACT 2 puffs as needed Inhalation 2 x a day Active Pantoprazole Sodium 40 MG 1 tablet Orall y Once a day Active Montelukast Sodium 10 MG as directed Orally Active Losartan Potassium 100 MG 1 tablet Orally 2 x a day Active Loratadine 10 MG 1 tablet Orally Once a day Active Encounters Encounter Location Date Provider Diagnosis [facility] [address] [facility] [place] [address] 10/22/2024 Guillermo Darden Dysphagia, unspecified type R13.10 Assessments Encounter Date Diagnosis (ICD Code) Assessment Notes Treatment Notes Treatment Clinical Notes Section Notes 10/22/2024 Dysphagia, unspecified type (ICD-10 - R13.10) Proceed with diagnostic EGD today. Plan Of Treatment Treatment Notes Assessment Notes Dysphagia, unspecified type Proceed with diagnostic EGD today. Progress Notes * Fidel ALCAZAR DDOB: [birth year] (79 yo M)Acc No.[id number]:10/22/2024 History and Physical Patient: Khadijah Fidel DANIELS Provider: Freda Darden MD :1945 A ge:79 Y S ex:Male Date:10/22/2024 Address:[address] [place], [place] [id number] Pcp:Pete Gomez, DO Check Out:08:47 AM [employer] Subjective: * Chief Complaints: * 1 . Dysphagia, unspecified type - R13.10 (Primary) Gastroesophageal reflux disease, unspecified whether esophagitis present - K21.9 History of coronary artery stent placement - Z95.5 History of stroke - Z86.73. * HPI: Duran rocha Note: Mr. Hernadnez is an 79-year-old male who presents for diagnostic EGD with complaint of dysphagia, increasing GERD symptoms, and painful swallowing. H e reports occasional nausea, a hoarse voice, and needing to clear his throat frequently. He does report a loss of appetite since December 2023. His last EGD was in [address] Baird, significant for motility disorder, otherwise normal EGD. His GERD symptoms are fairly well-controlled with Protonix twice daily, however the patient reports his Protonix has not been helping well for the last 2 months. The patient had an esophagram ordered by Dr. Naveed nassar August 2024 significant for minimal, nonspecific irregularity of the mucosa at the junction of the hypopharynx and upper cervical esophagus. Otherwise unremarkable. The patient has a significant cardiac history including MN in December and February 2024. Last stent placement was in February 2024. On DAPT. * ROS: G eneral - Multi System: Constitutional D enies fever, chills, body aches. . C ardiovascular D enies c hest pain, palpitations or syncope. R espiratory D enies shortness of breath. G astrointestinal S ee HPI. , Reports dysphagia.. * Medical History: S leep apnea, Hypertension, Diabetes, Pneumonia, CAD, GERD, Stroke, COPD, Colonic polyps. * Surgical History: c holecystectomy , appendectomy , back surgery L4 L5 x2 , Carotid endarterectomy 2012, Cardiac stent 2023, right cartoid 2023. * Hospitalization/Major Diagno stic Procedure: s ee surgical hx , Dehydration / dizziness 2020. * Family History: F ather: 79 yrs, skin cancer, colon polyps with part of his colon removed.. M other: 101 yrs, diabetes. father had some colon blockage. * Medications: T aking amLODIPine Besylate 10 MG Tablet 1 tablet Orally Once a day , Taking Calcium Polycarbophil 625 MG Tablet Chewable 1 tablet as needed Orally 2 x daily , Taking Cetirizine HCl 10 MG Tablet 1 tablet Orally Once a day , Taking Losartan Potassium 100 MG Tablet 1 tablet Orally 2 x a day , Taking Montelukast Sodium 10 MG Tablet as directed Orally , Taking Pantoprazole Sodium 40 MG Tablet Delayed Release 1 tablet Orally Once a day , Taking Tamsulosin HCl 0.4 MG Capsule 1 capsule Orally Once a day , Taking Ipratropium Leslie HFA 17 MCG/ACT Aerosol Solution 2 puffs as needed Inhalation 2 x a day , Taking Fluticasone Furoate 27.5 MCG/SPRAY Suspension 2 sprays (1 spray in each nostril) Nasally Once a day , Taking Aspirin 81 81 MG Tablet Delayed Release 1 tablet Orally Once a day , Taking Carvedilol 3.125 MG Tablet 1 tablet with food Orally Twice a day , Taking Atorvastatin Calcium 40 MG Tablet 1 tablet Orally Once a day , Taking Docusate Sodium 100 MG Capsule 1 capsule as needed Orally 2 x a day , Taking Loratadine 10 MG Tablet 1 tablet Orally Once a day , Taking Clopidogrel Bisulfate 75 MG Tablet 1 tablet Orally Once a day , Taking Insulin Aspart 100 UNIT/ML Solution Pen-injector as directed Subcutaneous , Notes to Pharmacist: 10ut, Taking Scopolamine 1 MG/3DAYS Patch 72 Hour 1 patch to skin behind the ear as needed Transdermal , Notes to Pharmacist: 33mg, Taking Insulin Glargine 100 UNIT/ML Solution as directed Subcutaneous , Notes to Pharmacist: 54 ut, Unknown Aspirin Adult 325 MG Tablet 1 tablet Orally Once a day , Unknown Finasteride 5 MG Tablet 1 tablet Orally as needed , Unknown Lantus 100 UNIT/ML Solution as directed Subcutaneous , Unknown Meclizine HCl 25 MG Tablet 1 tablet as needed Orally q 8 hrs , Unknown Metoprolol Tartrate 25 MG Tablet 1 tablet with food Orally Twice a day , Unknown NovoLOG 100 UNIT/ML Solution as directed Subcutaneous , Unknown Simvastatin 10 MG Tablet 1 tablet in the evening Orally Once a day * Allergies: N o Known Drug Allergy. Objective: * Vitals: * Examination: G eneral Examination: GENERAL APPEARANCE: A lert, comfortable, in no acute distress. HEART: R egular rate and rhythm.. LUNGS: N on-labored respirations. Clear bilaterally. Symmetrical.. ABDOMEN: N ormal, Soft, Non-tender, positive bowel sounds.? Assessment: * Assessment: 1. D ysphagia, unspecified type - R13.10 (Primary) Plan: * Treatment: * Billing Information: * Visit Code: * Procedure Codes: * Electronic signature of Will kimmie Darden MD on 01/22/2025 at 06:37 PM CDT Sign off status: Pending * Provider: Freda Darden MD Date: 0 10/22/2024 Generated for Grace dominguez/Rebekah/Jorge on: 0 01/22/2025 06:37 PM CDT History and Physical Notes * HPI (History of Present Illness) Category Sub-Category Detail Notes Category Not es Provider Note Mr. Hernandez is an 79-year-old male who presents for diagnostic EGD with complaint of dysphagia, increasing GERD symptoms, and painful swallowing. He reports occasional nausea, a hoarse voice, and needing to clear his throat frequently. He does report a loss of appetite since December 2023. His last EGD was in [address] Baird, significant for motility disorder, otherwise normal EGD. His GERD symptoms are fairly well-controlled with Protonix twice daily, however the patient reports his Protonix has not been helping well for the last 2 months. The patient had an esophagram ordered by Dr. Lucio in August 2024 significant for minimal, nonspecific irregularity of the mucosa at the junction of the hypopharynx and upper cervical esophagus. Otherwise unremarkable. The patient has a significant cardiac history including MN in December and February 2024. Last stent placement was in February 2024. On DAPT. Examination Category Sub-Category Detail Notes Category Not es General Examination GENERAL APPEARANCE: Alert, c omfortable, in no acute distress HEART: Regular rate and rhy thm. LUNGS: Non-labored respirat ions. Clear bilaterally. Symmetrical. ABDOMEN: Normal, Soft, Non-te nder, positive bowel sounds
--- OUTSIDE RECORDS SUMMARY | 2024-11-23 06:30 | XMS_ITS | Encounter Summary ---
Author Name [facility] [facility] [place] [facility] [place] [facility] [place] Address [address] [place] [address] Care Team Providers Care Tumbler Machine Operator Name Role Phone NUR, ANITHA Primary Care [...] AETNA POINT OF SERVICE MHBP Sep 26, [id number] SURRITTMARIBEL Abdullahi PATIENT AETNA POINT OF SERVICE MHBP POS Sep 26, 2017 [id number] SURRITTMARIBEL Abdullahi PATIENT AETNA MEDICARE SECONDARY (NO B EXC) MHBP* Jul 28, 2017 [id number] SURRITTMARIBEL Abdullahi PATIENT AETNA (MAILHANDL ERS) MEDICARE SECONDARY (NO B EXC) [facility]BP Sep 26, [id number] [phone] MARIBEL ALCAZAR PATIENT AETNA-MHBP POINT OF SERVICE MHBP Jul 28, 2017 MHBP [id number] [phone] SURRITTE, MARIBEL PATIENT AETNA-MHBP POINT OF SERVICE MHBP Jul 28, 2017 [id number] [phone] SURRITTE, MARIBEL PATIENT [facility] ([id number]) PRESCRIPT ION [id number] Jul 28, 2023 [id number] SURRITTE, MARIBEL PATIENT [facility] ([id number]) PRESCRIPT ION MHBP Jul 28, 2017 [id number] [phone] SURRITTE, MARIBEL PATIENT [facility] ([id number]) PRESCRIPT ION MHBP Jul 28, 2017 [id number] SURRITTE, MARIBEL PATIENT [facility] ([id number]) RX PRESCRIPT ION MHBP Sep 26, 2017 [id number] [phone] SURRITTE, MARIBEL PATIENT MEDICARE ([facility]) MEDICARE (M) PART A May 28, 2008 PART A [id number] SURRITTE, MARIBEL PATIENT MEDICARE ([facility]) MEDICARE (M) PART A May 28, 2008 PART A [id number] [phone] SURRITTE, MARIBEL PATIENT MEDICARE ([facility]) MEDICARE (M) PART A May 28, 2008 PART A [id number] [phone] SURRITTE, MARIBEL PATIENT MEDICARE (WNR) MEDICARE (M) PART A May 28, 2008 PART A [id number] SURRITTE, MARIBEL PATIENT MEDICARE ([facility]) MEDICARE () PART A May 28, 2008 PART A [id number] SURRITTE, MARIBEL PATIENT MEDICARE ([facility]) MEDICARE (M) PART A May 28, 2008 PART A [id number] SURRITTE, MARIBEL PATIENT MEDICARE PART D (WNR) MEDICARE (M) PART D Jul 28, 2023 PART D [id number] SURRITTE, MARIBEL PATIENT Selected Encounter This section includes the information on record at [place] for the Encounter. Date/Time Encounter Type Encounter Description Reason Provider Source Nov 23, 2024 11:30 AM OFFICE O/P EST MOD 30 MIN PRIMARY CARE/MEDICINE ICD-10-CM J30.9 Allergic rhinitis, unspecified MICHELLE BURROUGHS IHKaylen Encounter Template Text not used by [place] Assessments - Encounter Diagnoses This section includes the primary and secondary diagnoses documented for the Encounter. Date/Time Primary/Secondary Diagnosis Diagnosis Name Provider Source December 01, 2024 02:42 PM PRIMARY Allergic rhinitis, unspecified [facility] December 01, 2024 02:42 PM SECONDARY Foreign body sensation, throat [facility] BURROU[facility] [place] [facility] December 01, 2024 02:42 PM SECONDARY Other acute sinusitis [facility] December 01, 2024 02:42 PM SECONDARY Unspecified otitis externa, bilateral MICHELLE BURROUGHS [place] [facility] Plan of Treatment: Future Appointments (+ 6 months) and Future Tests (+/- 45 days) The Plan of Treatment section includes future care activities for the patient from all [place] treatmentfacilities. This section includes future appointments and future orders which are active, pending or scheduled. Future Appointments This section includes appointments that were scheduled to occur 6 months from the date of the Encounter, up to a maximum of 20 appointments. The data comes from all [place] treatment facilities. Appointment Date/Time Appointment Type Appointme nt Facility Name December 07, 2024 10:00 AM AMBULATORY - MEDICINE [facility] [facility] December 22, 2024 08:00 AM AMBUL[facility]ORY - [facility] Jan 04, 2025 11:15 AM AMBULATORY - MEDICINE [facility] Jan 05, 2025 10:30 AM [facility] [place] [facility] Jan 17, 2025 03:00 PM AMBULATORY [place]IC[place] [facility] Jan 18, 2025 10:15 AM AM[facility] Jan 19, 2025 09:45 AM AMBULATORY - MEDICINE [facility] Apr 08, 2025 09:30 AM AMBULATORY - MEDICINE [facility] Active, Pending, and Scheduled Orders This section includes a listing of several types of active, pending, and scheduled orders, including clinic medications orders, diagnostic test orders, procedure orders and consult orders; where the start date of the order is 45 days before the date of the Encounter or 45 days after the date of theEncounter. The data comes from all [place] treatment facilities. Test Date/Time Test Type Test Details Facility Name November 29, 2024 02:05 PM Consult Order [facility]-DER[facility] [id number] Cons Aluminum Molding Machine Operator's Choice SHAREE THOMPSON [facility] Lab Results: +/- 30 days of the [...] Interpretation Reference Range Specimen Type Comment Nov 23, 2024 12:08 PM [facility] DBXBDUNSY-YEVSZ-3,3-GALACTOSE IGE SERUM Speci men Type: SERUM Comment: REFERENCE RANGE: <0.10 kU/L Results above 0.1 kU/L indicate an allergen-specific IgE sensitization to wxbwccqit-y-2,3-g alactose, and such patients are at risk for delayed allergic reactions following beef, pork, or mendez consumption. Circulating IgE antibodies may remain undetectable despite a convincing clinical history because these antibodies may be directed towards allergens revealed or altered during industrial processing, cooking, or digestion and therefore do not exist in the original food for which the patient is tested. Sometimes individuals diagnosed with chronic urticaria may develop IgE antibodies directed against human thyroglobulin. Such antibodies may cross-react with the bovine thyroglobulin used in ImmunoCAP(R) Allergen o215, alpha-Gal, leading to a false-positive test result. A definitive diagnosis should be based on the evaluation of both clinical and laboratory findings and not on any single diagnostic method. Additional information can be found at [email or web address] .Crowdbaron Test performed by [employer] [address] [place] [address] Rubber Tubing Splicer: Carolyne Souza MD,PHD,RUSLAN Test Reported by [facility], [facility], [address] [place] [address] Jacobo Israel M.D., Ph.D., Director of Laboratories , [facility] [id number] Ordering Provider: MICHELLE BURROUGHS Report Released Date/Time: Nov 23, 2024 11:53 AM Reporting Lab: [facility] [facility] [address] [place] [address] Performing Lab: [facility] [id number] [facility] QILLNSTFT-YSIWJ-8,3-GALACTOSE IGE <0.10 kU/L SEE BELOW Nov 23, 2024 12:08 PM [facility] TSH (MA-PB) SERUM Specimen Typ e: SERUM No comment entered. Ordering Provider: MICHELLE BURROUGHS Report Released Date/Time: Nov 23, 2024 12:00 PM Reporting Lab: [facility] [facility] [address] [place] [address] Performing Lab: [place] [facility] [address] [place] [address] TSH 1.504 u[IU]/mL 0.47-5 Nov 23, 2024 12:08 PM [facility] N[facility] ALLERGY PANEL SERUM Specime n Type: SERUM No comment entered. Ordering Provider: MICHELLE BURROUGHS Report Released Date/Time: Nov 23, 2024 03:18 PM Reporting Lab: [facility] [facility] [address] [place] [address] Performing Lab: [facility] [facility] [id number] [facility] WHEAT (F4) IGE <0.10 kU/L WHEAT (F4) IGE CLASS 0 CODFISH (F3) IGE <0.10 kU/L CODFISH (F3) IGE CLASS 0 SOYBEAN (F14) IGE <0.10 kU/L SOYBEAN (F14) IGE CLASS 0 SHRIMP (F24) IGE <0.10 kU/L SHRIMP (F24) IGE CLASS 0 SCALLOP (F338) IGE <0.10 kU/L SCALLOP (F338) IGE CLASS 0 SESAME SEED (F10) IGE <0.10 kU/L SESAME SEED (F10) IGE CLASS 0 ALMOND (F20) IGE <0.10 kU/L ALMOND (F20) IGE CLASS 0 SALMON (F41) IGE <0.10 kU/L SALMON (F41) IGE CLASS 0 TUNA (F40) IGE <0.10 kU/L TUNA (F40) IGE CLASS 0 MACADAMIA NUT (RF345) IGE <0.10 kU/L MACADAMIA NUT (RF345) IGE CLASS 0 EGG WHITE (F1) IGE <0.10 kU/L EGG WHITE (F1) IGE CLASS 0 PEANUT (F13) IGE <0.10 kU/L PEANUT (F13) IGE CLASS 0 WALNUT (F256) IGE <0.10 kU/L WALNUT (F256) IGE CLASS 0 COWS MILK (F2) IGE <0.10 kU/L COWS MILK (F2) IGE CLASS 0 HAZELNUT (F17) IGE <0.10 kU/L HAZELNUT (F17) IGE CLASS 0 CASHEW NUT (F202) IGE <0.10 kU/L CASHEW NUT (F202) IGE CLASS 0 BRAZIL NUT (F18) IGE <0.10 kU/L BRAZIL NUT (F18) IGE CLASS 0 Nov 10, 2024 03:08 PM [facility] URINALYSIS W/ CX REFLEX (STL-PB) URINE Specim en Type: URINE No comment entered. Ordering Provider: MICHELLE BURROUGHS Report Released Date/Time: Nov 10, 2024 02:53 PM Reporting Lab: [facility] [facility] [address] [facility] [place] [address] Performing Lab: [facility] [facility] [address] [facility] [place] [id number] URINE COLOR Light Yellow Yellow U.BILIRUBIN NEGATIVE mg/dL Negative U.PH 7.0 5.0-8.0 APPEARANCE CLEAR Clear U.NITRITE NEGATIVE mg/dL Negative URN.GLUCOSE NORMAL mg/dL Negative URN.PROTEIN NEGATIVE mg/dL URN.UROBILINOGEN NORMAL mg/dL Normal URN.BLOOD NEGATIVE mg/dL Negative-Trace URN.KETONES NEGATIVE mg/dL Negative-Trac e URN.LEUK.EST. NEGATIVE Negative-Trace URN.SPECIFIC GRAVITY 1.013 1.005-1.029 Vital Signs: All taken on the encounter date This section contains inpatient and outpatient Vital Signs collected on the date of the Encounter. Date/Time Temperature Pulse Blood Pressure Respiratory Rate SP02 Pain Height Weight Body Mass Index Source Nov 23, 2024 11:39 AM 98.1 69 135/72 18 96 0 173.1 25 [facility] Social History: Smoking Status (Most current) and Tobacco Use (All prior to encounter date) This section includes the most current, and the historical, smoking and tobacco- related health factors from the [place] facility where the Encounter took place. Current Smoking Status This section includes the most current smoking, or tobacco-related health factor, from the [place] facility where the Encounter took place. Date/Time Current Smoking Status Comment Facil ity Feb 02, 2024 08:30 AM VA-TOBACCO FORMER USER [facility] Tobacco Use History This section includes a history of the smoking, or tobacco-related health factors, that were collected on or before the date of the Encounter. The data comes from the [place] facility where the Encounter took place. Date/Time Smoking Status/Tobacco Use Comment F acrosalba Feb 02, 2024 08:30 AM VA-TOBACCO QUIT 15 YRS OR MORE [facility] Feb 17, 2023 10:30 AM VA-TOBACCO FORMER USER [facility] Feb 17, 2023 10:30 AM VA-TOBACCO QUIT 15 YRS OR MORE [facility] Feb 20, 2022 10:00 AM VA-TOBACCO FORMER USER [facility] Feb 20, 2022 10:00 AM VA-TOBACCO QUIT 15 YRS OR MORE [facility] Feb 17, 2019 10:44 AM VA-TOBACCO FORMER USER [facility] Feb 17, 2019 10:44 AM VA-TOBACCO QUIT 15 YRS OR MORE [facility] Feb 15, 2019 09:43 AM VA-TOBACCO FORMER USER [facility] Feb 15, 2019 09:43 AM VA-TOBACCO QUIT 15 YRS OR MORE [facility] Apr 08, 2018 01:31 PM QUIT TOBACCO >7 YEARS AGO [facility] Oct 28, 2017 08:48 AM QUIT TOBACCO >7 YEARS AGO [facility] May 28, 2017 11:33 AM QUIT TOBACCO >7 YEARS AGO [facility] May 17, 2008 08:50 AM QUIT TOBACCO >7 YEARS AGO [facility] Oct 30, 2007 08:52 AM QUIT TOBACCO >7 YEARS AGO [facility] Mar 09, 2007 08:13 AM QUIT TOBACCO >7 YEARS AGO [facility] Jun 11, 2005 08:28 AM LIFETIME NON-TOBACCO [facility] Apr 08, 2005 10:40 AM CURRENT NON-TOBACC O USER-HX OF USE [place] [facility] Oct 05, 2004 11:10 AM CURRENT NON-TOBACC O USER-HX OF USE [facility] Jun 29, 2004 08:36 AM CURRENT NON-TOBACC O USER-HX OF USE [place] [facility] Dec 30, 2003 11:01 AM CURRENT NON-TOBACC O USER-HX OF USE [facility] Jul 15, 2003 11:11 AM CURRENT NON-TOBACC O USER-HX OF USE quit Jul 1998 [facility] Dec 27, 2002 12:57 PM CURRENT NON-TOBACC O USER-HX OF USE [place] [facility] Mar 31, 2002 10:19 AM CURRENT NON-TOBACC O USER-HX OF USE [facility] Sep 15, 2001 01:22 PM CURRENT NON-TOBACC O USER-HX OF USE [facility] Feb 16, 2001 03:11 PM CURRENT NON-TOBACC O USER-HX OF USE quit 2 yrs ago, 1 pk day [facility] Encounter Notes: All associated encounter notes This section contains the clinical notes associated to the Encounter. Date/Time Encounter Note(s) Provider Source Nov 23, 2024 11:46 AM PRIMARY CARE PROGR ESS NOTE: LOCAL TITLE: PRIMARY CARE CLINIC PROGRESS NOTE PB STANDARD TITLE: PRIMARY CARE PROGRESS NOTE DATE OF NOTE: NOV 23, 2024@11:46 ENTRY DATE: NOV 23, 2024@11:46:50 AUTHOR: MICHELLE BURROUGHS EXP COSIGNER: URGENCY: STATUS: COMPLETED Date & Time:Oct@11:46 This is a 79 year old MALE Allergies: Patient has answered NKA CC: throat issues and hoarse HPI: presented today stating he was having throat issues and hoarseness he states he feels like he has something in his throat. He was just recently seen by ENT denies scope down in his throat and said that they did not see anything and everything looked okay. [place] has a slight bit of erythema to pharynx no edema noted slight bit of cobblestoning noted already using Zyrtec, Flonase and azelastine. feels like it may be food related we discussed labs and working around some labs today as well as a TSH has not had a TSH in [address] Baker maintains his blood work. The last annual I did with the he stated that he did not need a TSH. does have some sinus pressure as well as some lymphedema in his throat submandibular Temperature: 98.1 F [36.7 C] (11/23/2024 11:39) Respiratory Rate: 18 (11/23/2024 11:39) Pulse Rate: 69 (11/23/2024 11:39) Blood Pressure: 135/72 (11/23/2024 11:39) HT: 70 in [177.8 cm] (03/30/2019 14:05) WT: 173.1 lb [78.52 kg] (11/23/2024 11:39) BMI: 24.9 96% (11/23/2024 11:39) REVIEW OF SYSTEMS: HEENT: headache. Nasal congestion sinus pressure ear pain and a feeling of something in his throat he does not describe it initially as a sore throat just a lump in his throat with further questioning he says his throat is sore no blurry vision, vision loss, eye pain, red eyes, or foreign body. No nose bleed. No hearing loss, ringing in the ears, or vertigo. No dental pain. RESPIRATORY: No cough, SOA, wheezing, or sputum production. CARDIOVASCULAR: No chest pain, palpitations, tachycardia, PND, or orthopnea. MUSCULOSKELETAL: No muscle or joint pain. SKIN: No rash, lesions, or infection PSYCH: No depression and anxious at this time. Not suicidal. 1) Diabetes mellitus type 2 (SNOMED CT 77147436) 2) GERD - Gastro-esophageal reflux disease 3) Essential hypertension (SNOMED CT 85844960) 4) Chronic obstructive lung disease (SNOMED CT 19535157) 5) Sleep apnea syndrome 6) Allergic rhinitis (SNOMED CT 35578097) 7) HL - Hearing loss 8) Carotid artery stenosis 9) Hyponatremia 10) Obstructive sleep apnea (SNOMED CT 31503496) 11) Cerebral ischemia (SNOMED CT 541143824) 12) HLD - Hyperlipidaemia 13) History of cholecystectomy 14) PVD - peripheral vascular disease 15) Benign prostatic hypertrophy with outflow obstruction 16) Vertigo 17) Cerebral infarction 18) CAD - Coronary Artery Disease ([facility] [id number]) 19) Dysphagia ([facility] [id number]) Active Outpatient Medications (including Supplies): Active Outpatient Medications Status 1) ALBUTEROL 90MCG (CFC-F) 200D ORAL INHL INHALE 2 PUFFS BY ACTIVE (S) ORAL INHALATION FOUR TIMES A DAY NEEDED SHAKE WELL. RINSE MOUTHPIECE FREQUENTLY TO PREVENT CLOGGING. Indication: FOR ASTHMA 2) ALBUTEROL SO4 0.083% INHL 3ML INHALE 1 VIAL (2.5MG/3ML) BY ACTIVE (S) NEBULIZATION EVERY 6 HOURS DIRECTED NEEDED Indication: FOR COPD 3) ALCOHOL PREP PAD USE/APPLY PAD TO AFFECTED AREA(S) FOUR ACTIVE (S) TIMES A DAY Indication: FOR WOUND CARE 4) AMLODIPINE BESYLATE 10MG TAB TAKE ONE TABLET BY MOUTH ONCE A ACTIVE (S) DAY FOR HEART/BLOOD PRESSURE 5) ASPIRIN 81MG EC TAB TAKE ONE TABLET BY MOUTH ONCE A DAY FOR ACTIVE (S) HEART OR CIRCULATION. TAKE WITH FOOD. 6) ATORVASTATIN CALCIUM 80MG TAB TAKE ONE-HALF TABLET BY MOUTH ACTIVE (S) EVERY EVENING Indication: FOR HIGH CHOLESTEROL 7) AZELASTINE 137MCG/SPRAY 200D NASAL INHL SPRAY 1 PUFF IN EACH ACTIVE (S) NOSTRIL TWICE DAILY NEEDED FOR ALLERGIC RHINITIS. *PRIME BEFORE USE* 8) CALCIUM POLYCARBOPHIL 625MG TAB TAKE TWO TABLETS BY MOUTH ACTIVE (S) ONCE A DAY FOR FIBER 9) CETIRIZINE HCL 10MG TAB TAKE ONE TABLET BY MOUTH ONCE A DAY ACTIVE (S) Indication: FOR ALLERGY SYMPTOMS 10) CLOPIDOGREL BISULFATE 75MG TAB TAKE ONE TABLET BY MOUTH ONCE ACTIVE A DAY 11) DOCUSATE NA 100MG CAP TAKE ONE CAPSULE BY MOUTH THREE TIMES ACTIVE (S) A DAY NEEDED TO SOFTEN STOOL. HOLD [...] REASON OR FOR TECHNICAL HELP PLEASE CALL [employer] HELP DESK: -SPECIFIC PHONE NUMBER: [phone]). Indication: FOR BLOOD SUGAR MONITORING 14) INSULIN SYRINGE 1ML 30G 12MM USE 1 SYRINGE UNDER THE SKIN ACTIVE (S) ONCE A DAY FOR USE WITH INSULIN TO CONTROL BLOOD SUGAR. 15) INSULIN,ASPART(EQV-NOVLG)100 UN/ML FLXPEN INJECT 10 UNITS ACTIVE (S) UNDER [...] A DAY NEEDED FOR ALLERGIES/NASAL SYMPTOMS. 18) LOSARTAN 100MG TAB TAKE ONE TABLET BY MOUTH ONCE A DAY TO ACTIVE (S) LOWER BLOOD PRESSURE 19) MONTELUKAST NA 10MG TAB TAKE ONE TABLET BY MOUTH AT BEDTIME ACTIVE (S) Indication: FOR BREATHING 20) NEEDLE,PEN 31G,5MM USE 1 NEEDLE UNDER THE SKIN THREE TIMES A ACTIVE (S) DAY BEFORE MEALS WITH NOVOLOG FLEXPEN 21) PANTOPRAZOLE NA 40MG EC TAB TAKE ONE TABLET BY MOUTH TWICE A ACTIVE (S) DAY TAKE 30 MINUTES BEFORE MEAL(S) Indication: FOR GASTROESOPHAGEAL REFLUX DISEASE 22) SCOPOLAMINE 0.33MG/24HR (1MG/3DAY) PATCH APPLY 2 PATCHES TO ACTIVE SKIN SITE EVERY 72 HOURS Indication: FOR MOTION SICKNESS 23) SUCRALFATE 500MG/5ML SUSP TAKE 10 ML BY MOUTH FOUR TIMES A ACTIVE (S) DAY - TAKE ON AN EMPTY STOMACH Indication: FOR DUODENAL ULCER 24) TAMSULOSIN HCL 0.4MG CAP TAKE ONE CAPSULE BY MOUTH EVERY ACTIVE (S) EVENING APPROXIMATELY 30 MINUTES AFTER THE SAME MEAL EACH DAY (FOR PROSTATE) 25) TERBINAFINE HCL 1% CREAM APPLY LIGHTLY TO AFFECTED AREA(S) ACTIVE (S) TWICE A DAY Indication: FOR FUNGAL SKIN INFECTION 26) TRIAMCINOLONE ACETONIDE 0.1% OINT APPLY LIGHTLY TO AFFECTED ACTIVE AREA(S) TWICE A DAY TO AREAS OF ITCHY RASH NEEDED. FOR EXTERNAL USE ONLY. Indication: FOR CONTACT DERMATITIS OBJECTIVE: Physical Exam General: NAD noted, A&Ox3, pleasant, appears stated age HEENT: NCAT, TM's clear, bilateral ear canals with erythema and edema and tenderness on exam nares and oropharynx with slight erythema no edema neck: Supple with normal active ROM, with lymphadenopathy Heart: RRR, no murmur, clicks, or rub Resp: Lungs CTA bilaterally, respirations even and unlabored Abdomen: Soft, non-distended, non-tender Ext: No clubbing, cyanosis, edema or obvious deformity Neuro: Grossly intact Psych: Affect normal, answers questions appropriately throughout visit Assessment/Plan: sinusitis -current plan to call Darrelin to [facility] and continue current medications will order labs today otitis externa bilaterally -current plan to call in Yajaira MCKEON to [facility] Foreign body sensation in throat -current Plan to continue to see ENT and GI has been referred, will order labs today feels like he may have allergies that may be affecting his throat and he wants to be well to go to his younger granddaughters graduation. Allergic rhinitis -current plan to continue current medications Follow-up: as needed. Discussed with patient that in the event of community imaging / testing being ordered in the future, once the imaging / testing has been completed, please notify PACT of completion at outside facility if not called with results within 1 week by a [facility] PACT member; this is due to intermittent lapses in notification of imaging completion within [facility]. All questions answered; agrees to plan of care. Follow up as listed above, annually, and as needed. Keep all appointments. Medications Reconciled. See AVS given to [place]. Time spent 30 minutes. Michelle Burroughs LINE INSTALLATION SUPERVISOR-BC *Hgb A1C 7 or >: The importance of exercise in relationship to blood sugar control was discussed with the patient. Diabetic dietary restrictions were discussed with the patient. Basic diet rules reviewed. Food Pyramid reviewed. /felisha/ NOÉ Smith, MSN, Randall Bonillahing [facility] Signed: 11/23/2024 13:04 MICHELLE BURROUGHS [facility] Nov 23, 2024 11:29 AM PRIMARY CARE NURSI PEGGY NOTE: LOCAL TITLE: PRIMARY CARE NURSING PROGRESS NOTE (TEXT) NURSING P STANDARD TITLE: PRIMARY CARE NURSING NOTE DATE OF NOTE: NOV 23, 2024@11:29 ENTRY DATE: NOV 23, 2024@11:29:35 AUTHOR: STEPHANIA VYAS COSIGNER: URGENCY: STATUS: COMPLETED Established Patient MARIBEL ALCAZAR IS A 79 YEAR OLD MALE BEING SEEN IN CLINIC NOV 23, 2024. = = REASON FOR VISIT: Follow up throat issues. States feels like something is stuck in his throat, throat feels swollen. Hoarseness. Are you receiving care any where other than the [facility]? No HEALTH AND SURGICAL HISTORY: Does patient report using home oxygen? CURRENT ACTIVE MEDICATIONS FOR REVIEW: If the list for review does not include a component, then it was not applicable to this patient. Allergies/ADRs (Tool #5) FACILITY ALLERGY/ADR -------- [facility] NO KNOWN ALLERGIES [facility] No Known Allergies [facility] NO KNOWN ALLERGIES Med. Reconciliation (Tool #1) INCLUDED IN THIS LIST: Alphabetical list of active outpatient prescriptions dispensed from this UT (local) and dispensed from another UT or DoD facility (remote) as well as inpatient orders (local pending and active), local clinic medications, locally documented non-VA medications, and local prescriptions that have or been discontinued in the past 90 days. Non-VA Meds Last Documented On: Nov 13, 2017 NOTE The display of VA prescriptions dispensed from another UT or [facility] facility (remote) is limited to active outpatient prescription entries matched to National Drug File at the originating site and may not include some items such as investigational drugs, compounds, etc. NOT INCLUDED IN THIS LIST: Medications self-entered by the patient into personal health records (i.e. [facility]) are NOT included in this list. Non-VA medications documented outside this UT, remote inpatient orders (regardless of status) and remote clinic medications are NOT included in this list. The patient and provider must always discuss medications the patient is taking, regardless of where the medication was dispensed or obtained. OUTPT ALBUTEROL 90MCG (CFC-F) 200D ORAL INHL (Status = Active/Suspended) INHALE 2 PUFFS BY ORAL INHALATION FOUR TIMES A DAY NEEDED FOR ASTHMA SHAKE WELL. RINSE MOUTHPIECE FREQUENTLY TO PREVENT CLOGGING. Rx# [id number] Last Released: 10/29/24 Qty/Days Supply: Rx Expiration Date: 10/29/25 Refills Remainin Indication: FOR ASTHMA OUTPT ALBUTEROL SO4 0.083% INHL 3ML (Status = Active/Suspended) INHALE 1 VIAL (2.5MG/3ML) BY NEBULIZATION EVERY 6 HOURS DIRECTED NEEDED FOR COPD Rx# [id number] Last Released: 09/21/24 Qty/Days Supply: Rx Expiration Date: 07/09/25 Refills Remainin Indication: FOR COPD OUTPT AMLODIPINE BESYLATE 10MG TAB (Status = Active/Suspended) TAKE ONE TABLET BY MOUTH ONCE A DAY FOR HEART/BLOOD PRESSURE Rx# [id number] Last Released: 10/25/24 Qty/Days Supply: Rx Expiration Date: 08/25/25 Refills Remainin OUTPT ASPIRIN 81MG EC TAB (Status = Active/Suspended) TAKE ONE TABLET BY MOUTH ONCE A DAY FOR HEART OR CIRCULATION. TAKE WITH FOOD. Rx# [id number] Last Released: 09/06/24 Qty/Days Supply: 120/90 Rx Expiration Date: 04/10/25 Refills Remainin OUTPT ATORVASTATIN CALCIUM 40MG TAB (Status = Discontinued) TAKE ONE TABLET BY MOUTH ONCE A DAY Rx# [id number] Last Released: 09/02/24 Qty/Days Supply: 90 Rx Expiration Date: 12/29/24 Refills Remainin OUTPT ATORVASTATIN CALCIUM 80MG TAB (Status = Active/Suspended) TAKE ONE-HALF TABLET BY MOUTH EVERY EVENING FOR HIGH CHOLESTEROL Rx# [id number] Last Released: 11/01/24 Qty/Days Supply: 45 Rx Expiration Date: 08/25/25 Refills Remainin Indication: FOR HIGH CHOLESTEROL OUTPT AZELASTINE 137MCG/SPRAY 200D NASAL INHL (Status = Active/Suspended) SPRAY 1 PUFF IN EACH NOSTRIL TWICE DAILY NEEDED FOR ALLERGIC RHINITIS. *PRIME BEFORE USE* Rx# [id number] Last Released: 11/03/24 Qty/Days Supply: 08/26 Rx Expiration Date: 08/25/25 Refills Remainin OUTPT CALCIUM POLYCARBOPHIL 625MG TAB (Status = Active/Suspended) TAKE TWO TABLETS BY MOUTH ONCE A DAY FOR FIBER Rx# [id number] Last Released: 11/17/24 Qty/Days Supply: 180/ Rx Expiration Date: 06/29/25 Refills Remainin OUTPT CARVEDILOL 3.125MG TAB (Status = ) TAKE ONE TABLET BY MOUTH TWICE A DAY TAKE WITH FOOD. Rx# [id number] Last Released: 10/04/24 Qty/Days Supply: 180 Rx Expiration Date: 11/22/24 Refills Remainin OUTPT CETIRIZINE HCL 10MG TAB (Status = Active/Suspended) TAKE ONE TABLET BY MOUTH ONCE A DAY FOR ALLERGY SYMPTOMS Rx# [id number] Last Released: 10/22/24 Qty/Days Supply: 90 Rx Expiration Date: 10/22/25 Refills Remainin Indication: FOR ALLERGY SYMPTOMS OUTPT CLOPIDOGREL BISULFATE 75MG TAB (Status = Active) TAKE ONE TABLET BY MOUTH ONCE A DAY Rx# [id number] Last Released: 08/25/24 Qty/Days Supply: Rx Expiration Date: 04/10/25 Refills Remainin OUTPT DOCUSATE NA 100MG CAP (Status = Active/Suspended) TAKE ONE CAPSULE BY MOUTH THREE TIMES A DAY NEEDED TO SOFTEN STOOL. HOLD FOR LOOSE STOOL/DIARRHEA. Rx# [id number] Last Released: 09/24/24 Qty/Days Supply: Rx Expiration Date: 04/10/25 Refills Remainin OUTPT EMPAGLIFLOZIN 25MG TAB (Status = Discontinued) TAKE ONE-HALF TABLET BY MOUTH ONCE A DAY FOR DIABETES Rx# [id number] Last Released: 07/13/24 Qty/Days Supply: Rx Expiration Date: 02/02/25 Refills Remainin Indication: FOR DIABETES OUTPT FLUTICASONE PROP 50MCG 120D NASAL INHL (Status = Active/Suspended) INSTILL 2 SPRAYS IN NOSTRIL(S) ONCE A DAY FOR RHINITIS (MUST BE USED DIRECTED FOR MINIMUM OF 21 DAYS TO PROVIDE ADEQUATE BENEFITS) Rx# [id number] Last Released: 09/13/24 Qty/Days Supply: Rx Expiration Date: 04/10/25 Refills Remainin Indication: FOR RHINITIS OUTPT INSULIN,ASPART(EQV-NOVLG)100 UN/ML FLXPEN (Status = Active/Suspended) INJECT 10 UNITS UNDER THE SKIN THREE TIMES A DAY BEFORE MEALS FOR BLOOD SUGAR CONTROL. ADMINISTER 10 MINUTES BEFORE FOOD DIRECTED. REFRIGERATE UN-OPENED PENS. DISCARD CARTRIDGE 28 DAYS AFTER OPENING. WILL REPLACE INSULIN REGULAR Rx# [id number] Last Released: 10/04/24 Qty/Days Supply: Rx Expiration Date: 06/29/25 Refills Remainin OUTPT INSULIN,GLARGINE,HUMAN 100 UNIT/ML INJ (Status = Active/Suspended) INJECT 54 UNITS UNDER THE SKIN ONCE A DAY FOR DIABETES (AT SAME TIME EACH DAY) - (DISCARD ANY UNUSED PORTION 28 DAYS AFTER OPENING) Rx# [id number] Last Released: 09/21/24 Qty/Days Supply: Rx Expiration Date: 04/10/25 Refills Remainin Indication: FOR DIABETES OUTPT IPRATROPIUM BR 0.03% NASAL SPRAY (Status = Active/Suspended) USE 2 SPRAYS INTO EACH NOSTRIL THREE TIMES A DAY NEEDED FOR ALLERGIES/NASAL SYMPTOMS. Rx# [id number] Last Released: 11/03/24 Qty/Days Supply: Rx Expiration Date: 08/25/25 Refills Remainin OUTPT IPRATROPIUM BR 0.06% NASAL SPRAY (Status = Discontinued) USE 1 TO 2 SPRAYS INTO EACH NOSTRIL THREE TIMES A DAY NEEDED Rx# [id number] Last Released: 10/11/24 Qty/Days Supply: Rx Expiration Date: 08/03/25 Refills Remainin OUTPT LORATADINE 10MG TAB (Status = Discontinued) TAKE ONE TABLET BY MOUTH ONCE A DAY FOR ALLERGIC RHINITIS ON EMPTY STOMACH Rx# [id number] Last Released: 09/13/24 Qty/Days Supply: 90 Rx Expiration Date: 04/10/25 Refills Remainin Indication: FOR ALLERGIC RHINITIS OUTPT LOSARTAN 100MG TAB (Status = Active/Suspended) TAKE ONE TABLET BY MOUTH ONCE A DAY TO LOWER BLOOD PRESSURE Rx# [id number] Last Released: 11/03/24 Qty/Days Supply: 90 Rx Expiration Date: 06/29/25 Refills Remainin OUTPT MONTELUKAST NA 10MG TAB (Status = Active/Suspended) TAKE ONE TABLET BY MOUTH AT BEDTIME FOR BREATHING Rx# [id number] Last Released: 11/19/24 Qty/Days Supply: 90 Rx Expiration Date: 04/10/25 Refills Remainin Indication: FOR BREATHING OUTPT PANTOPRAZOLE NA 40MG EC TAB (Status = Active/Suspended) TAKE ONE TABLET BY MOUTH TWICE A DAY FOR GASTROESOPHAGEAL REFLUX DISEASE TAKE 30 MINUTES BEFORE MEAL(S) Rx# [id number] Last Released: 09/17/24 Qty/Days Supply: 180/ Rx Expiration Date: 04/10/25 Refills Remainin Indication: FOR GASTROESOPHAGEAL REFLUX DISEASE OUTPT SCOPOLAMINE 0.33MG/24HR (1MG/3DAY) PATCH (Status = Active) APPLY 2 PATCHES TO SKIN SITE EVERY 72 HOURS FOR MOTION SICKNESS Rx# [id number] Last Released: 10/25/24 Qty/Days Supply: 05/26 Rx Expiration Date: 08/25/25 Refills Remainin Indication: FOR MOTION SICKNESS OUTPT SUCRALFATE 1GM TAB (Status = Discontinued) TAKE ONE TABLET BY MOUTH EVERY 6 HOURS FOR DUODENAL ULCER - TAKE ON AN EMPTY STOMACH. Rx# [id number] Last Released: 09/07/24 Qty/Days Supply: 360/90 Rx Expiration Date: 08/25/25 Refills Remainin Indication: FOR DUODENAL ULCER OUTPT SUCRALFATE 500MG/5ML SUSP (Status = Discontinued) TAKE 10 ML BY MOUTH FOUR TIMES A DAY FOR DUODENAL ULCER - TAKE ON AN EMPTY STOMACH Rx# [id number] Last Released: 10/04/24 Qty/Days Supply: 420/90 Rx Expiration Date: 10/01/25 Refills Remainin Indication: FOR DUODENAL ULCER OUTPT SUCRALFATE 500MG/5ML SUSP (Status = Active/Suspended) TAKE 10 ML BY MOUTH FOUR TIMES A DAY FOR DUODENAL ULCER - TAKE ON AN EMPTY STOMACH Rx# [id number] Last Released: Qty/Days Supply: 3600/90 Rx Expiration Date: 10/19/25 Refills Remainin Indication: FOR DUODENAL ULCER OUTPT TAMSULOSIN HCL 0.4MG CAP (Status = Active/Suspended) TAKE ONE CAPSULE BY MOUTH EVERY EVENING APPROXIMATELY 30 MINUTES AFTER THE SAME MEAL EACH DAY (FOR PROSTATE) Rx# [id number] Last Released: 10/18/24 Qty/Days Supply: 90/90 Rx Expiration Date: 06/29/25 Refills Remainin OUTPT TERBINAFINE HCL 1% CREAM (Status = Active/Suspended) APPLY LIGHTLY TO AFFECTED AREA(S) TWICE A DAY FOR FUNGAL SKIN INFECTION Rx# [id number] Last Released: 09/21/24 Qty/Days Supply: 120/90 Rx Expiration Date: 08/25/25 Refills Remainin Indication: FOR FUNGAL SKIN INFECTION OUTPT TRIAMCINOLONE ACETONIDE 0.1% OINT (Status = Active) APPLY LIGHTLY TO AFFECTED AREA(S) TWICE A DAY FOR CONTACT DERMATITIS TO AREAS OF ITCHY RASH NEEDED. FOR EXTERNAL USE ONLY. Rx# [id number] Last Released: 09/14/24 Qty/Days Supply: 80/30 Rx Expiration Date: 04/10/25 Refills Remainin Indication: FOR CONTACT DERMATITIS SUPPLIES OUTPT ALCOHOL PREP PAD (Status = Active/Suspended) USE/APPLY PAD TO AFFECTED AREA(S) FOUR TIMES A DAY FOR WOUND CARE Rx# [id number] Last Released: 09/14/24 Qty/Days Supply: 200/90 Rx Expiration Date: 04/10/25 Refills Remainin Indication: FOR WOUND CARE OUTPT GLUCOSE SENSOR [facility] 2 (Status = Active/Suspended) USE SENSOR EVERY 2 WEEKS FOR BLOOD SUGAR MONITORING CHANGE SENSOR/SITE EVERY 14 DAYS. TO REPLACE SENSOR FOR ANY REASON OR FOR TECHNICAL HELP PLEASE CALL [employer] DESK: -SPECIFIC PHONE NUMBER: ([phone]). Rx# [id number] Last Released: 11/12/24 Qty/Days Supply: 09/24 Rx Expiration Date: 08/25/25 Refills Remainin Indication: FOR BLOOD SUGAR MONITORING OUTPT INSULIN SYRINGE 1ML 30G 12MM (Status = Active/Suspended) USE 1 SYRINGE UNDER THE SKIN ONCE A DAY FOR USE WITH INSULIN TO CONTROL BLOOD SUGAR. Rx# [id number] Last Released: 11/15/24 Qty/Days Supply: 100/90 Rx Expiration Date: 08/25/25 Refills Remainin OUTPT NEEDLE,PEN 31G,5MM (Status = Active/Suspended) USE 1 NEEDLE UNDER THE SKIN THREE TIMES A DAY BEFORE MEALS WITH NOVOLOG FLEXPEN Rx# [id number] Last Released: 09/09/24 Qty/Days Supply: 300/90 Rx [...] [facility]. Or, it may be an jgii-sup-ekhsixh (OTC), herbal, dietary supplements or sample medication. [...] before this medication now. you run out. Medication list reviewed with Patient Patient/Caregiver reports taking medications as ordered. IS PATIENT TAKING ANY OVER THE COUNTER MEDICATIONS, SUCH VITAMINS OR HERBAL SUPPLEMENTS, INCLUDING ANY MEDICATIONS PRESCRIBED BY ANOTHER PHYSICIAN? No Does patient have any new allergies to report since last visit? NO VITALS: TEMPERATURE: 97.7 F [36.5 C] (09/30/2024 10:43) BP: 142/60 (09/30/2024 10:53) RESP: 20 (09/30/2024 10:43) PULSE: 80 (09/30/2024 10:43) HT: 70 in [177.8 cm] (03/30/2019 14:05) WT: 176.1 lb [79.88 kg] (09/30/2024 10:43) BMI: 25.3 PAIN ASSESSMENT: (Most Recent Pain Score in Vitals Package: 0 (09/30/2024 10:43) ) The patient indicated that they and [...] Now let us serve you. At the [facility], we strive to provide you with exceptional health care that improves your health and well-being. Are you feeling sad, empty, or depressed? Yes Do you need to talk about things [...] Not At All SPIRITUAL ASSESSMENT: Are there sabianist practices or spiritual concerns you want the shift superintendent, your physician, and other health care team members to immediately know about? No Patient advised to call the clinic for any concerns, questions, or symptoms. Patient and/or caregiver verbalized understanding of plan of care. Per [facility] Directive 1605.06, wristband documentation: Patient wristband was removed and destroyed by (staff name) Stephania Vyas and placed in the designated SHred-It bin. Pain Assessment: - PAIN ASSESSMENT: .. Patient reports no pain at this visit. Pain Score = 0. Patient's self identified pain goal: 0 Weight Control/Nutrition Counseling: * The patient received the following counseling at this encounter: Patient was encouraged to restrict fat, especially saturated fats, in a normal diet. Benefit of a diet high in fiber was discussed. Patient was advised to include 5 or more servings of fruit and vegetables and six or more servings of grains as a well balanced diet. Patient/Nurse Interview: * * Patient stated that adequate information was received regarding the condition and/or treatment. PAVE Foot Check - L,N,P,PH,PO,PT,U: Patient indicates foot exam (including monofilament test for sensation) was performed in the past year in the private sector: Date: October, ? Exact date is unknown Result: Dr. Campbell in [facility] ANTONIA /felisha/ VAHID SAINZ JACKSONKhadijah [facility] Signed: 11/23/2024 11:37 STEPHANIA VYAS [place] [facility]
--- OUTSIDE RECORDS SUMMARY | 2025-01-03 06:02 | XMS_ITS ---
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) MEDICARE SECONDARY (NO B EXC) [facility] Sep 26, [id number] RINARIMARIBEL INIGUEZ PATIENT AETNA-[facility] POINT OF SERVICE [facility] Jul 28, 2017 [id number] SURRITTE, MARIBEL PATIENT AETNA-[facility] POINT OF SERVICE [facility] Jul 28, 2017 [id number] [phone] SURRITTE, MARIBEL PATIENT [place] ([id number]) PRESCRIPT ION [id number] Jul 28, 2023 [id number] SURRITTE, MARIBEL PATIENT [place] ([id number]) PRESCRIPT ION [facility] Jul 28, 2017 [id number] SURRITTE, MARIBEL PATIENT [place] ([id number]) PRESCRIPT ION [facility] Jul 28, 2017 [id number] [phone] SURRITTE, MARIBEL PATIENT [place] ([id number]) RX PRESCRIPT ION [facility] Sep 26, 2017 [id number] [phone] SURRITTE, MARIBEL PATIENT MEDICARE ([facility]) MEDICARE (M) PART A May 28, 2008 PART A [id number] SURRITTE, MARIBEL PATIENT MEDICARE ([facility]) MEDICARE (M) PART A May 28, 2008 PART A [id number] SURRITTE, MARIBEL PATIENT MEDICARE ([facility]) MEDICARE (M) PART A May 28, 2008 PART A [id number] [phone] [id number] SURRITTE, MARIBEL PATIENT MEDICARE (WNR) MEDICARE (M) PART A May 28, 2008 PART A [id number] SURRITTE, MARIBEL PATIENT MEDICARE ([facility]) MEDICARE () PART A May 28, 2008 PART A [id number] SURRITTE, MARIBEL PATIENT MEDICARE ([facility]) MEDICARE (M) PART A May 28, 2008 PART A [id number] SURRITTE, MARIBEL PATIENT MEDICARE PART D ([facility]) MEDICARE (M) PART D Jul 28, 2023 PART D [id number] SURRITTE, MARIBEL PATIENT Selected Encounter This section includes the information on record at [place] for the Encounter. Date/Time Encounter Type Encounter Description Reason Pro vider Source Jan 03, 2025 11:02 AM Outpatient Encounter ADMIN PAT ACTIVTIES (MASNONCT) IHE Encounter Template Text not used by [place] Plan of Treatment: Future Appointments (+ 6 [...] Date/Time Appointment Type Appointme nt Facility Name Jan 04, 2025 11:15 AM AMBULATORY - MEDICINE [facility] Jan 05, 2025 10:30 AM AMBULATORY - MEDICINE [facility] Jan 17, 2025 03:00 PM AMBULATORY - MEDICINE [facility] Jan 18, 2025 10:15 AM AMBULATORY - MEDICINE [facility] Jan 19, 2025 09:45 AM AMBULATORY - MEDICINE [facility] Apr 08, 2025 09:30 AM AMBULATORY - MEDICINE [facility] Active, Pending, and Scheduled Orders This section includes a listing of several types of active, pending, and scheduled orders, including clinic medications orders, diagnostic test orders, procedure orders and consult orders; where the start date of the order is 45 days before the date of the Encounter or 45 days after the date of theEncounter. The data comes from all [facility]. Test Date/Time Test Type Test Details Facility Name November 29, 2024 02:05 PM Consult Order [facility]-DERMATOLOGY [id number] Cons Daycare Director's Choice [facility] Jan 14, 2025 12:04 PM Consult Order COMM[facility]ITY CARE-PODIATRY [id number] Cons Daycare Director's Choice [facility] Jan 17, 2025 12:57 PM Consult Order [facility] CARE-OPHTH DIS MGMT [id number] Cons Daycare Director's Choice [facility] Lab Results: +/- 30 days of the encounter This section includes the Chemistry and Hematology Lab Results on record with [place] for the patient. Radiology Reports and Pathology Reports are provided separately, in subsequent sections. Lab Results This section contains the Chemistry/Hematology Results that were resulted 30 days before or 30 daysafter the date of the Encounter. Date/Time Source Result Type Result - Unit Interpretation Reference Range Specimen Type Comment Jan 04, 2025 11:47 AM [facility] URINALYSIS W/ CX REFLEX (STL-PB) URINE Specim en Type: URINE No comment entered. Ordering Provider: LUIS MANUEL BURNETT Report Released Date/Time: Dec 30, 2024 11:37 AM Reporting Lab: [facility] [address] [facility] [id number] Performing Lab: [facility] [address] [facility] [id number] URINE COLOR Light Yellow Yellow U.BILIRUBIN NEGATIVE mg/dL Negative U.PH 7.5 5.0-8.0 APPEARANCE CLEAR Clear U.NITRITE NEGATIVE mg/dL Negative URN.GLUCOSE NORMAL mg/dL Negative URN.PROTEIN NEGATIVE mg/dL URN.UROBILINOGEN NORMAL mg/dL Normal URN.BLOOD NEGATIVE mg/dL Negative-Trace URN.KETONES NEGATIVE mg/dL Negative-Trac e URN.LEUK.EST. NEGATIVE Negative-Trace URN.SPECIFIC GRAVITY 1.010 1.005-1.029 Social History: Smoking Status (Most current) and [...] 02, 2024 08:30 AM [facility]-TOBACCO FORMER USER [facility] Tobacco Use History This section includes a history of the smoking, or tobacco-related health factors, that were collected on or before the date of the Encounter. The data comes from the [place] facility where the Encounter took place. Date/Time Smoking Status/Tobacco Use Comment F acility Feb 02, 2024 08:30 AM [place]-TOBACCO QUIT 15 YRS OR MORE [facility] Feb 17, 2023 10:30 AM VA-TOBACCO FORMER USER [facility] Feb 17, 2023 10:30 AM [place]-TOBAC[place] QUIT 15 YRS OR MORE [facility] Feb 20, 2022 10:00 AM VA-TOBACCO FORMER USER [facility] Feb 20, 2022 10:00 AM VA-TOBACCO QUIT 15 YRS OR MORE [facility] Feb 17, 2019 10:44 AM VA-TOBACCO FORMER USER [facility] Feb 17, 2019 10:44 AM VA-TOBACCO QUIT 15 YRS OR MORE [facility] Feb 15, 2019 09:43 AM VA-TOBACCO FORMER USER [facility] Feb 15, 2019 09:43 AM VA-TOBACCO QUIT 15 YRS OR MORE [facility] Apr 08, 2018 01:31 PM QUIT TOBACCO >7 YEARS AGO [facility] Oct 28, 2017 08:48 AM QUIT TOBACCO >7 YEARS AGO [facility] May 28, 2017 11:33 AM QUIT TOBACCO >7 YEARS AGO [facility] May 17, 2008 08:50 AM QUIT TOBACCO >7 YEARS AGO [facility] Oct 30, 2007 08:52 AM QUIT TOBACCO >7 YEARS AGO [facility] Mar 09, 2007 08:13 AM QUIT TOBACCO >7 YEARS AGO [facility] Jun 11, 2005 08:28 AM LIFETIME NON-TOBACCO USER [facility] Apr 08, 2005 10:40 AM CURRENT NON-TOBACC O USER-HX OF USE [facility] Oct 05, 2004 11:10 AM CURRENT NON-TOBACC O USER-HX OF USE [facility] Jun 29, 2004 08:36 AM CURRENT NON-TOBACC O USER-HX OF USE [facility] Dec 30, 2003 11:01 AM CURRENT NON-TOBACC O USER-HX OF USE [facility] Jul 15, 2003 11:11 AM CURRENT NON-TOBACC O USER-HX OF USE quit Jul 1998 [facility] Dec 27, 2002 12:57 PM CURRENT NON-TOBACC O USER-HX OF USE [facility] Mar 31, 2002 10:19 AM CURRENT NON-TOBACC O USER-HX OF USE [facility] Sep 15, 2001 01:22 PM CURRENT NON-TOBACC O USER-HX OF USE [facility] Feb 16, 2001 03:11 PM CURRENT NON-TOBACC O USER-HX OF USE quit 2 yrs ago, 1 pk day [facility] Encounter Notes: All associated encounter notes This section contains the clinical notes associated to the Encounter. Date/Time Encounter Note(s) Provider Source Jan 03, 2025 11:02 AM GENERAL MEDICINE N OTE: LOCAL TITLE: General Note PB STANDARD TITLE: GENERAL MEDICINE NOTE DATE OF NOTE: JAN 03, 2025@11:02 ENTRY DATE: JAN 03, 2025@11:02:20 AUTHOR: LILIAN KATZ EXP COSIGNER: URGENCY: STATUS: COMPLETED came in with a filter stuck in his left hearing aid. Got the filter out and replaced it with a new one. /felisha/ KAILA FIERRO AUSTINKhadijah [facility] Signed: 01/03/2025 11:03 LILIAN KATZ [facility] [place] [facility]
--- OUTSIDE RECORDS SUMMARY | 2025-01-04 06:15 | XMS_ITS | Encounter Summary ---
Author Name [facility] [place] Address [address] [place] [address] Care Team Providers Care Consulting Nurse Name Role Phone NUR, ANITHA Primary Care [...] OF SERVICE MHBP POS Sep 26, 2017 [id number] [phone] SURRITTMARIBEL Abdullahi PATIENT AETNA POINT OF SERVICE MHBP Sep 26, 2017 [id number] [phone] SURRITTMARIBEL Abdullahi PATIENT AETNA MEDICARE SECONDARY (NO B EXC) MH[facility]* Jul 28, 2017 [id number] SURRITTMARIBEL Abdullahi PATIENT AETNA (MAILHANDL ERS) MEDICARE SECONDARY (NO B EXC) [facility] Sep 26, 2017 [id number] SURRIMARIBEL INIGUEZ PATIENT AETNA-MHBP POINT OF SERVICE MH[facility] Jul 28, 2017 [id number] [id number] [phone] SURRITTE, MARIBEL PATIENT AETNA-MHBP POINT OF SERVICE [facility] Jul 28, 2017 [id number] SURRITTE, MARIBEL PATIENT CAR[facility]ARK ([id number]) PRESCRIPT ION [id number] Jul 28, 2023 [id number] SURRITTE, MARIBEL PATIENT CAREMARK ([id number]) PRESCRIPT ION MHBP Jul 28, 2017 [id number] [phone] SURRITTE, MARIBEL PATIENT CAREMARK ([id number]) PRESCRIPT ION [facility]BP Jul 28, 2017 [id number] [phone] SURRITTE, MARIBEL PATIENT CAREMARK ([id number]) RX PRESCRIPT ION [facility]BP Sep 26, 2017 [id number] [phone] SURRITTE, MARIBEL PATIENT MEDICARE ([facility] MEDICARE (M) PART A May 28, 2008 PART A [id number] [phone] SURRITTE, MARIBEL PATIENT MEDICARE ([facility] MEDICARE (M) PART A May 28, 2008 PART A [id number] SURRITTE, MARIBEL PATIENT MEDICARE (WNR) MEDICARE (M) PART A May 28, 2008 PART A [id number] SURRITTE, MARIBEL PATIENT MEDICARE (WNR) MEDICARE (M) PART A May 28, 2008 PART A [id number] [phone] SURRITTE, MARIBEL PATIENT MEDICARE ([facility] MEDICARE (M) PART A May 28, 2008 PART A [id number] [phone] SURRITTE, MARIBEL PATIENT MEDICARE ([facility] MEDICARE (M) PART A May 28, 2008 PART A [id number] SURRITTE, MARIBEL PATIENT MEDICARE PART D (WNR) MEDICARE (M) PART D Jul 28, 2023 PART D [id number] SURRITTE, MARIBEL PATIENT Selected Encounter This section includes the information on record at [place] for the Encounter. Date/Time Encounter Type Encounter Description Reason Provider Source Jan 04, 2025 11:15 AM OFF/OP EST NOVEMBER X REQ PHY/QHP PRIMARY CARE/MEDICINE ICD-10-CM Z01.31 Encounter for exam of blood pressure w abnormal findings JANINE BACON E Encounter Template Text not used by [place] Assessments - Encounter Diagnoses This section includes the primary and secondary diagnoses documented for the Encounter. Date/Time Primary/Secondary Diagnosis Diagnosis Name Provider Source Jan 14, 2025 12:55 PM PRIMARY Encounter for exam of blood pressure w abnormal findings JANINE BACON [facility] Plan of Treatment: Future Appointments (+ 6 months) and Future Tests (+/- 45 days) The Plan of Treatment section includes future care activities for the patient from all [place] [facility]. This section includes future appointments and future orders which are active, pending or scheduled. Future Appointments This section includes appointments that were scheduled to occur 6 months from the date of the Encounter, up to a maximum of 20 appointments. The data comes from all [facility]. Appointment Date/Time Appointment Type Appointme nt Facility Name Jan 05, 2025 10:30 AM AMBULATORY - MEDICINE [facility] Jan 17, 2025 03:00 PM AMBULATORY - [facility] Jan 18, 2025 10:15 AM [facility] - [facility] Jan 19, 2025 09:45 AM AMBULATORY - MEDICINE [facility] Apr 08, 2025 09:30 AM AMBULATORY - MEDICINE [facility] Active, Pending, and Scheduled Orders This section includes a listing of several types of active, pending, and scheduled orders, including clinic medications orders, diagnostic test orders, procedure orders and consult orders; where the start date of the order is 45 days before the date of the Encounter or 45 days after the date of theEncounter. The data comes from all [facility]. Test Date/Time Test Type Test Details Facility Name November 29, 2024 02:05 PM Consult Order COMMUNITY CARE-DERMATOLOGY 657A4 [employer] [facility] Jan 14, 2025 12:04 PM Consult Order COMMUNITY CARE-PODIATRY 657A4 [employer] [facility] Jan 17, 2025 12:57 PM Consult Order COMMUNITY CARE-OPHTH DIS MGMT 657A4 [employer] [facility] Lab Results: +/- 30 days of the encounter This section includes the Chemistry and Hematology Lab Results on record with [place] for the patient. Radiology Reports and Pathology Reports are provided separately, in subsequent sections. Lab Results This section contains the Chemistry/Hematology Results that were resulted 30 days before or 30 daysafter the date of the Encounter. Date/Time Source Result Type Result - Unit Interpretation Reference Range Specimen Type Comment Jan 04, 2025 11:47 AM [facility] URINALYSIS W/ CX REFLEX (STL-PB) URINE Specim en Type: URINE No comment entered. Ordering Provider: LUIS MANUEL BURNETT Report Released Date/Time: Dec 30, 2024 11:37 AM Reporting Lab: [facility] [address] [facility] [address] Performing Lab: [facility] [address] [address] URINE COLOR Light Yellow Yellow U.BILIRUBIN NEGATIVE mg/dL Negative U.PH 7.5 5.0-8.0 APPEARANCE CLEAR Clear U.NITRITE NEGATIVE mg/dL Negative URN.GLUCOSE NORMAL mg/dL Negative URN.PROTEIN NEGATIVE mg/dL URN.UROBILINOGEN NORMAL mg/dL Normal URN.BLOOD NEGATIVE mg/dL Negative-Trace URN.KETONES NEGATIVE mg/dL Negative-Trac e URN.LEUK.EST. NEGATIVE Negative-Trace URN.SPECIFIC GRAVITY 1.010 1.005-1.029 Vital Signs: All taken on the encounter date This section contains inpatient and outpatient Vital Signs collected on the date of the Encounter. Date/Time Temperature Pulse Blood Pressure Respiratory Rate SP02 Pain Height Weight Body Mass Index Source Jan 04, 2025 12:17 PM 97.9 72 154/65 [facility] Social History: Smoking Status (Most current) and Tobacco Use (All prior to encounter date) This section includes the most current, and the historical, smoking and tobacco- related health factors from the [place] facility where the Encounter took place. Current Smoking Status This section includes the most current smoking, or tobacco-related health factor, from the [place] facility where the Encounter took place. Date/Time Current Smoking Status Comment Maura garcia Feb 02, 2024 08:30 AM VA-TOBACCO QUIT 15 YRS OR MORE [facility] Tobacco Use History This section includes a history of the smoking, or tobacco-related health factors, that were collected on or before the date of the Encounter. The data comes from the [place] facility where the Encounter took place. Date/Time Smoking Status/Tobacco Use Comment F acility Feb 02, 2024 08:30 AM VA-TOBACCO QUIT 15 YRS OR MORE [facility] Feb 17, 2023 10:30 AM VA-TOBACCO FORMER USER [facility] Feb 17, 2023 10:30 AM VA-TOBACCO QUIT 15 YRS OR MORE [facility] Feb 20, 2022 10:00 AM VA-TOBACCO FORMER USER [facility] Feb 20, 2022 10:00 AM VA-TOBACCO QUIT 15 YRS OR MORE [facility] Feb 17, 2019 10:44 AM VA-TOBACCO FORMER USER [facility] Feb 17, 2019 10:44 AM VA-TOBACCO QUIT 15 YRS OR MORE [facility] Feb 15, 2019 09:43 AM VA-TOBACCO FORMER USER [facility] Feb 15, 2019 09:43 AM VA-TOBACCO QUIT 15 YRS OR MORE [facility] Apr 08, 2018 01:31 PM QUIT TOBACCO >7 YEARS AGO [facility] Oct 28, 2017 08:48 AM QUIT TOBACCO >7 YEARS AGO [facility] May 28, 2017 11:33 AM QUIT TOBACCO >7 YEARS AGO [facility] May 17, 2008 08:50 AM QUIT TOBACCO >7 YEARS AGO [facility] Oct 30, 2007 08:52 AM QUIT TOBACCO >7 YEARS AGO [facility] Mar 09, 2007 08:13 AM QUIT TOBACCO >7 YEARS AGO [facility] Jun 11, 2005 08:28 AM LIFETIME NON-TOBACCO USER [facility] Apr 08, 2005 10:40 AM CURRENT NON-TOBACC O USER-HX OF USE [facility] Oct 05, 2004 11:10 AM CURRENT NON-TOBACC O USER-HX OF USE [facility] Jun 29, 2004 08:36 AM CURRENT NON-TOBACC O USER-HX OF USE [facility] Dec 30, 2003 11:01 AM CURRENT NON-TOBACC O USER-HX OF USE [facility] Jul 15, 2003 11:11 AM CURRENT NON-TOBACC O USER-HX OF USE quit Jul 1998 [facility] Dec 27, 2002 12:57 PM CURRENT NON-TOBACC O USER-HX OF USE [facility] Mar 31, 2002 10:19 AM CURRENT NON-TOBACC O USER-HX OF USE [facility] Sep 15, 2001 01:22 PM CURRENT NON-TOBACC O USER-HX OF USE [facility] Feb 16, 2001 03:11 PM CURRENT NON-TOBACC O USER-HX OF USE quit 2 yrs ago, 1 pk day [facility] [place] [facility] Encounter Notes: All associated encounter notes This section contains the clinical notes associated to the Encounter. Date/Time Encounter Note(s) Provider Source Jan 04, 2025 12:16 PM NURSING PROGRESS N OTE: LOCAL TITLE: NURSING NOTE PB STANDARD TITLE: NURSING PROGRESS NOTE DATE OF NOTE: JAN 04, 2025@12:16 ENTRY DATE: JAN 04, 2025@12:16:54 AUTHOR: JANINE BACON EXP COSIGNER: URGENCY: STATUS: COMPLETED Blood Pressure: 154/65 Pulse: 72 Temperature: 97.9 F (36.6 C) Pulse Oximetry: 96% Active Outpatient Medications: Active Outpatient Medications (including Supplies): Active Outpatient Medications Status 1) ALBUTEROL 90MCG (CFC-F) 200D ORAL INHL INHALE 2 PUFFS BY ACTIVE ORAL INHALATION FOUR TIMES A DAY NEEDED [...] INHL SPRAY 1 PUFF IN EACH ACTIVE NOSTRIL TWICE DAILY NEEDED FOR ALLERGIC RHINITIS. *PRIME BEFORE USE* 8) CALCIUM POLYCARBOPHIL 625MG TAB TAKE TWO TABLETS BY MOUTH ACTIVE (S) ONCE A DAY FOR FIBER 9) CARVEDILOL 3.125MG TAB TAKE ONE TABLET BY MOUTH TWICE A DAY ACTIVE TAKE WITH FOOD. 10) CETIRIZINE HCL 10MG TAB TAKE ONE TABLET BY MOUTH ONCE A DAY ACTIVE (S) Indication: FOR ALLERGY SYMPTOMS 11) CLOPIDOGREL BISULFATE 75MG TAB TAKE ONE TABLET BY MOUTH ONCE ACTIVE (S) A DAY 12) DOCUSATE NA 100MG CAP TAKE ONE CAPSULE BY MOUTH THREE TIMES ACTIVE (S) A DAY NEEDED TO SOFTEN STOOL. HOLD FOR LOOSE STOOL/DIARRHEA. 13) FLUTICASONE PROP 50MCG 120D NASAL INHL INSTILL 2 SPRAYS IN ACTIVE (S) NOSTRIL(S) ONCE A DAY (MUST BE USED DIRECTED FOR MINIMUM OF 21 DAYS TO PROVIDE ADEQUATE BENEFITS) Indication: FOR RHINITIS 14) GLUCOSE SENSOR VasoNovaSTYLE BRADLEY 2 USE SENSOR EVERY 2 WEEKS ACTIVE (S) CHANGE SENSOR/SITE EVERY 14 DAYS. TO REPLACE SENSOR FOR ANY REASON OR FOR TECHNICAL HELP PLEASE CALL [employer] HELP DESK: -SPECIFIC PHONE NUMBER: ([phone]). Indication: FOR BLOOD SUGAR MONITORING 15) INSULIN SYRINGE 1ML 30G 12MM USE 1 SYRINGE UNDER THE SKIN ACTIVE (S) ONCE A DAY FOR USE WITH INSULIN TO CONTROL BLOOD SUGAR. 16) INSULIN,ASPART(EQV-NOVLG)100U N/ML FLXPEN INJECT 10 UNITS ACTIVE (S) UNDER THE SKIN THREE TIMES A DAY BEFORE MEALS FOR BLOOD SUGAR CONTROL. ADMINISTER 10 MINUTES BEFORE FOOD DIRECTED. REFRIGERATE UN-OPENED PENS. DISCARD CARTRIDGE 28 DAYS AFTER OPENING. WILL REPLACE INSULIN REGULAR 17) INSULIN,GLARGINE,HUMAN 100 UNIT/ML INJ INJECT 54 UNITS UNDER ACTIVE (S) THE SKIN ONCE A DAY (AT SAME TIME EACH DAY) - (DISCARD ANY UNUSED PORTION 28 DAYS AFTER OPENING) Indication: FOR DIABETES 18) IPRATROPIUM BR 0.03% NASAL SPRAY USE 2 SPRAYS INTO EACH ACTIVE NOSTRIL THREE TIMES A DAY NEEDED FOR ALLERGIES/NASAL SYMPTOMS. 19) LOSARTAN 100MG TAB TAKE ONE TABLET BY MOUTH ONCE A DAY TO ACTIVE (S) LOWER BLOOD PRESSURE 20) MONTELUKAST NA 10MG TAB TAKE ONE TABLET BY MOUTH AT BEDTIME ACTIVE (S) Indication: FOR BREATHING 21) NEEDLE,PEN 31G,5MM USE 1 NEEDLE UNDER THE SKIN THREE TIMES A ACTIVE (S) DAY BEFORE MEALS WITH NOVOLOG FLEXPEN 22) PANTOPRAZOLE NA 40MG EC TAB TAKE ONE TABLET BY MOUTH TWICE A ACTIVE (S) DAY TAKE 30 MINUTES BEFORE MEAL(S) Indication: FOR GASTROESOPHAGEAL REFLUX DISEASE 23) SCOPOLAMINE 0.33MG/24HR (1MG/3DAY) PATCH APPLY 1 PATCH TO ACTIVE SKIN SITE EVERY 72 HOURS NEEDED Indication: FOR MOTION SICKNESS 24) SUCRALFATE 500MG/5ML SUSP TAKE 10 ML BY MOUTH FOUR TIMES A ACTIVE (S) DAY - TAKE ON AN EMPTY STOMACH Indication: FOR DUODENAL ULCER 25) TAMSULOSIN HCL 0.4MG CAP TAKE ONE CAPSULE BY MOUTH EVERY ACTIVE (S) EVENING APPROXIMATELY 30 MINUTES AFTER THE SAME MEAL EACH DAY (FOR PROSTATE) 26) TERBINAFINE HCL 1% CREAM APPLY LIGHTLY TO AFFECTED AREA(S) ACTIVE TWICE A DAY Indication: FOR FUNGAL SKIN INFECTION 27) TRIAMCINOLONE ACETONIDE 0.1% OINT APPLY LIGHTLY TO AFFECTED ACTIVE AREA(S) TWICE A DAY TO AREAS OF ITCHY RASH NEEDED. FOR EXTERNAL USE ONLY. Indication: FOR CONTACT DERMATITIS CC: Alexandria presents to clinic stating his blood pressure was elevated at home. Subjective: Alexandria presents stating his blood pressure at home on monitor was 160/130 which he checked multiple times and was getting same readings. States he is not feeling well, when asked to elaborate he said he was dizzy, restless, fatigued, and feels exhausted. Denies fevers, chills, body aches, or any other symptoms. Denies chest pains or palpitations. O/A: Alexandria is alert and oriented. Respirations easy and non-labored with clear breath sounds. Heart rate regular with no peripheral edema. Alexandria reports normal bowel movements and normal urination but did report his home health nurse had reached out to clinic for UA a few days ago to rule out his symptoms. Order is in CPRS for UA, although denies symptoms. Blood pressure on arrival with auto cuff 154/65 HR 100, repeat after rest period 154/66 HR 72 and manual 150/60. reports taking his am medications as prescribed. Alexandria has scopolamine patch 1mg 1 patch behind each ear. Plan/ Intervention: Discussed with [employer]ICOT KNITTER. Blood pressure monitor dispensed from [place] clinic, will have monitor blood pressures daily and follow up with team to evaluate. Educated that scopolamine RX was written as PRN and he has been using consistently, encouraged him to remove patches for 24 hours and apply if needed. Possible drug side effects discussed with feeling that may be causing some of his symptoms. Return to clinic for re-evaluation if any changes in status. UA today as previously ordered. Will call with results once available. Educated on signs and symptoms to report with understanding. RTC: Blood pressure check and review of log in 2-3 weeks. Per A Directive 1605.06, wristband documentation: Patient wristband was removed and destroyed by (staff name) Janine Bacon RN and placed in the designated [employer] bin. /es/ JANINE REID, [facility] Signed: 01/04/2025 12:29 Receipt Acknowledged By: 01/04/2025 16:01 /es/ NOÉ Smith, MSN, Randall Golden [facility] MAURISIO,JANINE Raman [facility]
--- OUTSIDE RECORDS SUMMARY | 2025-01-17 03:49 | XMS_ITS | Encounter Summary ---
Author Name [facility] [place] Address [address] [place] [address] Care Team Providers Care Online Health And Fitness Coach Name Role Phone NURANITHA Primary Care Provider [...] OF SERVICE MHBP POS Sep 26, 2017 [id number] [phone] SURRITTMARIBEL Abdullahi PATIENT AETNA POINT OF SERVICE [facility] Sep 26, 2017 [id number] [phone] SURRITTMARIBEL Abdullahi PATIENT AETNA MEDICARE SECONDARY (NO B EXC) MHBP* Jul 28, 2017 [id number] SURRITTMARIBEL Abdullahi PATIENT AETNA (MAILHANDL ERS) MEDICARE SECONDARY (NO B EXC) MHBP Sep 26, 2017 [id number] MARIBEL ALCAZAR PATIENT AETNA-MHBP POINT OF SERVICE MH[facility] Jul 28, 2017 [id number] [phone] SURRITTE, MARIBEL PATIENT AETNA-MHBP POINT OF SERVICE [facility] Jul 28, 2017 [id number] [phone] SURRITTE, MARIBEL PATIENT CAREMARK ([id number]) PRESCRIPT ION [id number] Jul 28, 2023 [id number] [phone] SURRITTE, MARIBEL PATIENT CAREMARK ([id number]) PRESCRIPT ION MHBP Jul 28, 2017 [id number] [phone] SURRITTE, MARIBEL PATIENT CAREMARK ([id number]) PRESCRIPT ION MHBP Jul 28, 2017 [id number] [phone] SURRITTE, MARIBEL PATIENT CAREMARK ([id number]) RX PRESCRIPT ION MHBP Sep 26, 2017 [id number] [phone] SURRITTE, MARIBEL PATIENT MEDICARE ([facility]) MEDICARE () PART A May 28, 2008 PART A [id number] SURRITTE, MARIBEL PATIENT MEDICARE ([facility]) MEDICARE () PART A May 28, 2008 PART A [id number] [phone] [id number] SURRITTE, MARIBEL PATIENT MEDICARE ([facility]) MEDICARE () PART A May 28, 2008 PART A [id number] SURRITTE, MARIBEL PATIENT MEDICARE ([facility]) MEDICARE (M) PART A May 28, 2008 PART A [id number] [phone] SURRITTE, MARIBEL PATIENT MEDICARE ([facility]) MEDICARE () PART A May 28, 2008 PART A [id number] SURRITTE, MARIBEL PATIENT MEDICARE ([facility]) MEDICARE () PART A May 28, 2008 PART A [id number] [phone] SURRITTE, MARIBEL PATIENT MEDICARE PART D ([facility]) MEDICARE (M) PART D Jul 28, 2023 PART D [id number] [phone] SURRITTE, MARIBEL PATIENT Selected Encounter This section includes the information on record at [place] for the Encounter. Date/Time Encounter Type Encounter Description Reason Provider Source Jan 17, 2025 08:49 AM Outpatient Encounter COMMUNITY CARE CONSULT ZEESHAN IYV [facility] Encounter Template Text not used by [place] Plan of Treatment: Future Appointments (+ 6 months) and Future Tests (+/- 45 days) The Plan of Treatment section includes future care activities for the patient from all [place] treatmentfacilities. This section includes future appointments and future orders which are active, pending or scheduled. Future Appointments This section includes appointments that were scheduled to occur 6 months from the date of the Encounter, up to a maximum of 20 appointments. The data comes from all [place] treatment facilities. Appointment Date/Time Appointment Type Appointme nt Facility Name Jan 18, 2025 10:15 AM AMBULATORY - MEDICINE [facility] Jan 19, 2025 09:45 AM AMBULATORY - MEDICINE [facility] Apr 08, 2025 09:30 AM AMBULATORY - MEDICINE [facility] Active, Pending, and Scheduled Orders This section includes a listing of several types of active, pending, and scheduled orders, including clinic medications orders, diagnostic test orders, procedure orders and consult orders; where the start date of the order is 45 days before the date of the Encounter or 45 days after the date of theEncounter. The data comes from all [place] treatment facilities. Test Date/Time Test Type Test Details Facility Name Jan 14, 2025 12:04 PM Consult Order COMMUNITY CARE-PODIATRY 657A4 [employer] [facility] Jan 17, 2025 12:57 PM Consult Order COMMUNITY CARE-OPHTH DIS MGMT 657A4 [employer] [facility] Lab Results: +/- 30 days of the encounter This section includes the Chemistry and Hematology Lab Results on record with [place] for the patient. Radiology Reports and Pathology Reports are provided separately, in subsequent sections. Lab Results This section contains the Chemistry/Hematology Results that were resulted 30 days before or 30 daysafter the date of the Encounter. Date/Time Source Result Type Result - Unit Interpretation Reference Range Specimen Type Comment Jan 04, 2025 11:47 AM [facility] URINALYSIS W/ CX REFLEX (STL-PB) URINE Specim en Type: URINE No comment entered. Ordering Provider: LUIS MANUEL BURNETT Report Released Date/Time: Dec 30, 2024 11:37 AM Reporting Lab: [place] [facility] [address] [place] [place] [address] Performing Lab: [place] [facility] [address] [place] [address] URINE COLOR Light Yellow Yellow U.BILIRUBIN NEGATIVE mg/dL Negative U.PH 7.5 5.0-8.0 APPEARANCE CLEAR Clear U.NITRITE NEGATIVE mg/dL Negative URN.GLUCOSE NORMAL mg/dL Negative URN.PROTEIN NEGATIVE mg/dL URN.UROBILINOGEN NORMAL mg/dL Normal URN.BLOOD NEGATIVE mg/dL Negative-Trace URN.KETONES NEGATIVE mg/dL Negative-Trac e URN.LEUK.EST. NEGATIVE Negative-Trace URN.SPECIFIC GRAVITY 1.010 1.005-1.029 Encounter Notes: All associated encounter notes This section contains the clinical notes associated to the Encounter. Date/Time Encounter Note(s) Provider Source Jan 17, 2025 08:49 AM NONVA NOTE: LOCAL TITLE: COMMUNITY CARE-CARE COORDINATION PLAN NOTE 657A4 STANDARD TITLE: NONVA NOTE DATE OF NOTE: JAN 17, 2025@08:49 ENTRY DATE: JAN 17, 2025@08:49:16 AUTHOR: ZEESHAN IVY EXP COSIGNER: URGENCY: STATUS: COMPLETED Community Care Consult: Podiatry Consult No: [id number] [facility] Referral #: [id number] [facility] Provider or Hospital Information [facility] Provider Information Provider Name: Dr. 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 Patient Admitted? No Level of Care Coordination Moderate Care Coordination was determined from: Chart Review Facility Community Care Office Contact Care Coordination Point of Contact: [place] [phone] Services: Basic Care Coordination Services Monitoring and coordination of Rehab/PT Services Direct communication to referring provider Care management, if appropriate Plan: Continuation of care. Proceed with scheduling. /felisha/ JEANETTE RIVERA, RN Care in the Community Signed: 01/17/2025 08:50 ZEESHAN IVY [facility]
--- OUTSIDE RECORDS SUMMARY | 2025-01-17 07:30 | XMS_ITS | Encounter Summary ---
Author Name [facility] [place] [facility] [place] Address [address] [place] [address] Care Team Providers Care Pattern Grader Name Role Phone ANITHA NUR Primary Care Provider Unavailabl e Insurance Providers: [...] OF SERVICE [facility]BP POS Sep 26, 2017 [id number] [phone] SURRITTMARIBEL Abdullahi PATIENT AETNA POINT OF SERVICE [facility] Sep 26, 2017 [id number] SURRITTMARIBEL Abdullahi PATIENT AETNA MEDICARE SECONDARY (NO B EXC) [facility]BP* Jul 28, 2017 [id number] SURRITTMAIRBEL Abdullahi PATIENT AETNA (MAILHANDL ERS) MEDICARE SECONDARY (NO B EXC) [facility] Sep 26, 2017 [id number] MARIBEL ALCAZAR PATIENT AETNA-MHBP POINT OF SERVICE [facility] Jul 28, 2017 [id number] SURRITTE, MARIBEL PATIENT AETNA-MHBP POINT OF SERVICE [facility] Jul 28, 2017 [id number] SURRITTE, MARIBEL PATIENT [facility] ([id number]) PRESCRIPT ION [id number] Jul 28, 2023 [id number] SURRITTE, MARIBEL PATIENT CAREMARK ([id number]) PRESCRIPT ION MHBP Jul 28, 2017 [id number] SURRITTE, MARIBEL PATIENT CAREMARK ([id number]) PRESCRIPT ION [facility]BP Jul 28, 2017 [id number] [phone] SURRITTE, MARIBEL PATIENT CAREMARK ([id number]) RX PRESCRIPT ION [facility] Sep 26, 2017 [id number] [phone] SURRITTE, MARIBEL PATIENT MEDICARE ([facility]) MEDICARE (M) PART A May 28, 2008 PART A [id number] [phone] SURRITTE, MARIBEL PATIENT MEDICARE ([facility]) MEDICARE (M) PART A May 28, 2008 PART A [id number] SURRITTE, MARIBEL PATIENT MEDICARE ([facility]) MEDICARE (M) PART A May 28, 2008 PART A [id number] SURRITTE, MARIBEL PATIENT MEDICARE (WNR) MEDICARE (M) PART A May 28, 2008 PART A [id number] [phone] SURRITTE, MARIBEL PATIENT MEDICARE ([facility]) MEDICARE (M) PART A May 28, 2008 PART A [id number] SURRITTE, MARIBEL PATIENT MEDICARE ([facility]) MEDICARE (M) PART A May 28, 2008 PART A [id number] SURRITTE, MARIBEL PATIENT MEDICARE PART D (WNR) MEDICARE (M) PART D Jul 28, 2023 PART D [id number] SURRITTE, MARIBEL PATIENT Selected Encounter This section includes the information on record at [place] for the Encounter. Date/Time Encounter Type Encounter Description Reason Pro vider Source Jan 17, 2025 12:30 PM Outpatient Encounter PRIMARY CARE/MEDICINE IHE Encounter Template Text not used by [place] Plan of Treatment: Future Appointments (+ 6 [...] 18, 2025 10:15 AM AMBULATORY - MEDICINE [facility] Jan 19, 2025 09:45 AM AMBULATORY - MEDICINE [facility] Apr 08, 2025 09:30 AM AMBULATORY - MEDICINE [facility] Active, Pending, and Scheduled Orders This section includes a listing of several types of active, pending, and scheduled orders, including clinic medications orders, diagnostic test orders, procedure orders and consult orders; where the start date of the order is 45 days before the date of the Encounter or 45 days after the date of theEncounter. The data comes [place] [facility] [place] Test Date/Time Test Type Test Details Facility Name Jan 14, 2025 12:04 PM Consult Order COMMUNITY CARE-PODIATRY [id number] Cons [facility] Jan 17, 2025 12:57 PM Consult Order COMMUNITY CARE-OPHTH DIS MGMT [id number] Cons [facility] Lab Results: +/- 30 days [...] Type Comment Jan 04, 2025 11:47 AM [facility] URINALYSIS W/ CX REFLEX (STL-PB) URINE Specim en Type: URINE No comment entered. Ordering Provider: LUIS MANUEL BURNETT Report Released Date/Time: Dec 30, 2024 11:37 AM Reporting Lab: [place] [facility] [address] [place] [address] Performing Lab: [place] [facility] [address] [place] [address] URINE COLOR Light Yellow Yellow U.BILIRUBIN NEGATIVE [...] Height Weight Body Mass Index Source Jan 17, 2025 12:48 PM 98 F 87 /min 103/58 mm[Hg] 18 /min 97 % [facility] Social History: Smoking Status (Most current) and [...] 02, 2024 08:30 AM VA-TOBACCO FORMER USER [facility] Tobacco Use History This section includes a history of the smoking, or tobacco-related health factors, that were collected on or before the date of the Encounter. The data comes from the [place] facility where the Encounter took place. Date/Time Smoking Status/Tobacco Use Comment F acility Feb 02, 2024 08:30 AM VA-TOBACCO QUIT 15 YRS OR MORE [facility] Feb 17, 2023 10:30 AM VA-TOBACCO FORMER USER [facility] Feb 17, 2023 10:30 AM VA-TOBACCO QUIT 15 YRS OR MORE [facility] Feb 20, 2022 10:00 AM VA-TOBACCO FORMER USER [facility] Feb 20, 2022 10:00 AM VA-TOBACCO QUIT 15 YRS OR MORE [facility] Feb 17, 2019 10:44 AM VA-TOBACCO FORMER USER [facility] Feb 17, 2019 10:44 AM VA-TOBACCO QUIT 15 YRS OR MORE [facility] Feb 15, 2019 09:43 AM VA-TOBACCO FORMER USER [facility] Feb 15, 2019 09:43 AM VA-TOBACCO QUIT 15 YRS OR MORE [facility] Apr 08, 2018 01:31 PM QUIT TOBACCO >7 YEARS AGO [facility] Oct 28, 2017 08:48 AM QUIT TOBACCO >7 YEARS AGO [facility] May 28, 2017 11:33 AM QUIT TOBACCO >7 YEARS AGO [facility] May 17, 2008 08:50 AM QUIT TOBACCO >7 YEARS AGO [facility] Oct 30, 2007 08:52 AM QUIT TOBACCO >7 YEARS AGO [facility] Mar 09, 2007 08:13 AM QUIT TOBACCO >7 YEARS AGO [facility] Jun 11, 2005 08:28 AM LIFETIME NON-TOBACCO USER [facility] Apr 08, 2005 10:40 AM CURRENT NON-TOBACC O USER-HX OF USE [facility] Oct 05, 2004 11:10 AM CURRENT NON-TOBACC O USER-HX OF USE [facility] Jun 29, 2004 08:36 AM CURRENT NON-TOBACC O USER-HX OF USE [facility] Dec 30, 2003 11:01 AM CURRENT NON-TOBACC O USER-HX OF USE [facility] Jul 15, 2003 11:11 AM CURRENT NON-TOBACC O USER-HX OF USE quit Jul 1998 [facility] Dec 27, 2002 12:57 PM CURRENT NON-TOBACC O USER-HX OF USE [facility] Mar 31, 2002 10:19 AM CURRENT NON-TOBACC O USER-HX OF USE [facility] Sep 15, 2001 01:22 PM CURRENT NON-TOBACC O USER-HX OF USE [facility] Feb 16, 2001 03:11 PM CURRENT NON-TOBACC O USER-HX OF USE quit 2 yrs ago, 1 pk day [facility]
--- OUTSIDE RECORDS SUMMARY | 2025-01-17 07:47 | XMS_ITS | Encounter Summary ---
Author Name [facility] [facility] [place] [facility] [place] Address [address] [place] [address] Care Team Providers Care Finisher Merchant Products Name Role Phone NUR, ANITHA Primary Care [...] AETNA POINT OF SERVICE [facility] Sep 26, [id number] SURRITTMARIBEL Abdullahi PATIENT AETNA POINT OF SERVICE [facility] POS Sep 26, 2017 [id number] 720 SURRITTMARIBEL Abdullahi PATIENT AETNA MEDICARE SECONDARY (NO B EXC) [facility]* Jul 28, 2017 [id number] [phone] SURRITTMARIBEL Abdullahi PATIENT AETNA (MAILHANDL ERS) MEDICARE SECONDARY (NO B EXC) [facility] Sep 26, [id number] MARIBEL ALCAZAR PATIENT AETNA-MHBP POINT OF SERVICE [facility] Jul 28, 2017 [id number] [phone] SURRITTE, MARIBEL PATIENT AETNA-MHBP POINT OF SERVICE [facility] Jul 28, 2017 [id number] [phone] SURRITTE, MARIBEL PATIENT [facility] ([id number]) PRESCRIPT ION [id number] Jul 28, 2023 [id number] SURRITTE, MARIBEL PATIENT [facility]ARK ([id number]) PRESCRIPT ION [facility] Jul 28, 2017 [id number] SURRITTE, MARIBEL PATIENT CAREMARK ([id number]) PRESCRIPT ION [facility] Jul 28, 2017 [id number] SURRITTE, MARIBEL PATIENT CAREMARK ([id number]) RX PRESCRIPT ION [facility] Sep 26, 2017 [id number] [phone] SURRITTE, MARIBEL PATIENT MEDICARE ([facility]) MEDICARE (M) PART A May 28, 2008 PART A [id number] [phone] SURRITTE, MARIBEL PATIENT MEDICARE ([facility]) MEDICARE () PART A May 28, 2008 PART A [id number] SURRITTE, MARIBEL PATIENT MEDICARE ([facility]) MEDICARE () PART A May 28, 2008 PART A [id number] SURRITTE, MARIBEL PATIENT MEDICARE ([facility]) MEDICARE (M) PART A May 28, 2008 PART A [id number] SURRITTE, MARIBEL PATIENT MEDICARE ([facility]) MEDICARE () PART A May 28, 2008 PART A [id number] SURRITTE, MARIBEL PATIENT MEDICARE ([facility]) MEDICARE () PART A May 28, 2008 PART A [id number] SURRITTE, MARIBEL PATIENT MEDICARE PART D ([facility]) MEDICARE (M) PART D Jul 28, 2023 PART D [id number] [phone] SURRITTE, MARIBEL PATIENT Selected Encounter This section includes the information on record at [place] for the Encounter. Date/Time Encounter Type Encounter Description Reason Provider Source Jan 17, 2025 12:47 PM OFFICE O/P EST LOW 20 MIN PRIMARY CARE/MEDICINE ICD-10-CM H57.11 Ocular pain, right eye MICHELLE BURNETT [facility] Encounter Template Text not used by [place] Assessments - Encounter Diagnoses This section includes the primary and secondary diagnoses documented for the Encounter. Date/Time Primary/Secondary Diagnosis Diagnosis Name Provider Source Jan 17, 2025 02:25 PM PRIMARY Ocular pain, right eye MICHELLE BURNETT [facility] Plan of Treatment: Future Appointments (+ 6 months) and Future Tests (+/- 45 days) The Plan of Treatment section includes future care activities for the [facility] [place] [facility] This section includes future appointments and future orders which are active, pending or scheduled. Future Appointments This section includes appointments that were scheduled to occur 6 months from the date of the Encounter, up to a maximum of 20 appointments. The data comes from all [place] treatment facilities. Appointment Date/Time Appointment Type Appointme nt Facility Name Jan 18, 2025 10:15 AM AMBULATORY - MEDICINE [place] [facility] Jan 19, 2025 09:45 AM AMBULATORY - MEDICINE [facility] Apr 08, 2025 09:30 AM AMBULATORY - MEDICINE [facility] Active, Pending, and Scheduled Orders This section includes a listing of several types of active, pending, and scheduled orders, including clinic medications orders, diagnostic test orders, procedure orders and consult orders; where the start date of the order is 45 days before the date of the Encounter or 45 days after the date of theEncounter. The data comes from all [place] treatment [facility]. Test Date/Time Test Type Test Details Facility Name Jan 14, 2025 12:04 PM Consult Order COMMUNITY CARE-PODIATRY [id number] Cons [employer] [facility] [place] [facility] Jan 17, 2025 12:57 PM Consult Order COMMUNITY CARE-OPHTH DIS MGMT [id number] [employer] [facility] Lab Results: +/- 30 days of the encounter This section includes the Chemistry and Hematology Lab Results on record with [place] for the patient. Radiology Reports and Pathology Reports are provided separately, in subsequent sections. Lab Results This section contains the Chemistry/Hematology Results that were resulted 30 days before or 30 daysafter the date of the Encounter. Date/Time Source Result Type Result - Unit Interpretation Reference Range Specimen Type Comment Jan 04, 2025 11:47 AM [facility] URINALYSIS W/ CX REFLEX (STL-PB) URINE Specim en Type: URINE No comment entered. Ordering Provider: MICHELLE BURNETT Report Released Date/Time: Dec 30, 2024 11:37 AM Reporting [facility] [place] [facility] [address] [facility] [address] Performing Lab: [place] [facility] [address] [facility] [place] [facility] [address] URINE COLOR Light Yellow Yellow U.BILIRUBIN NEGATIVE [...] /min 103/58 mm[Hg] 18 /min 97 % [facility] Social History: Smoking Status (Most current) and Tobacco Use (All prior to encounter date) This section includes the most current, and the historical, smoking and tobacco- related health factors from the [place] facility where the Encounter took place. Current Smoking Status This section includes the most current smoking, or tobacco-related health factor, from the [place] facility where the Encounter took place. Date/Time Current Smoking Status Comment Maura ity Feb 02, 2024 08:30 AM [place]-TOBACCO FORMER USER [facility] Tobacco Use History This section includes a history of the smoking, or tobacco-related health factors, that were collected on or before the date of the Encounter. The data comes from the [place] facility where the Encounter took place. Date/Time Smoking Status/Tobacco Use Comment F acility Feb 02, 2024 08:30 AM VA-TOBACCO QUIT 15 YRS OR MORE [place] [facility] Feb 17, 2023 10:30 AM VA-TOBACCO FORMER USER [facility] [facility] Feb 17, 2023 10:30 AM VA-TOBACCO QUIT 15 YRS OR MORE [facility] [facility] Feb 20, 2022 10:00 AM VA-TOBACCO FORMER USER [facility] Feb 20, 2022 10:00 AM VA-TOBACCO QUIT 15 YRS OR MORE [facility] Feb 17, 2019 10:44 AM VA-TOBACCO FORMER USER [facility] Feb 17, 2019 10:44 AM VA-TOBACCO QUIT 15 YRS OR MORE [facility] Feb 15, 2019 09:43 AM VA-TOBACCO FORMER USER [facility] Feb 15, 2019 09:43 AM VA-TOBACCO QUIT 15 YRS OR MORE [facility] Apr 08, 2018 01:31 PM QUIT TOBACCO >7 YEARS AGO [place] [facility] Oct 28, 2017 08:48 AM QUIT TOBACCO >7 YEARS AGO [facility] May 28, 2017 11:33 AM QUIT TOBACCO >7 YEARS AGO [facility] May 17, 2008 08:50 AM QUIT TOBACCO >7 YEARS AGO [facility] Oct 30, 2007 08:52 AM QUIT TOBACCO >7 YEARS AGO [facility] Mar 09, 2007 08:13 AM QUIT TOBACCO >7 YEARS AGO [facility] [facility] Jun 11, 2005 08:28 AM LIFETIME NON-TOBACCO USER [facility] Apr 08, 2005 10:40 AM CURRENT NON-TOBACC O USER-HX OF USE [facility] [facility] Oct 05, 2004 11:10 AM CURRENT NON-TOBACC O USER-HX OF USE [facility] Jun 29, 2004 08:36 AM CURRENT NON-TOBACC O USER-HX OF USE [facility] Dec 30, 2003 11:01 AM CURRENT NON-TOBACC O USER-HX OF USE [facility] Jul 15, 2003 11:11 AM CURRENT NON-TOBACC O USER-HX OF USE quit Jul 1998 [place] [facility] Dec 27, 2002 12:57 PM CURRENT NON-TOBACC O USER-HX OF USE [facility] [facility] Mar 31, 2002 10:19 AM CURRENT NON-TOBACC O USER-HX OF USE [facility] [facility] Sep 15, 2001 01:22 PM CURRENT NON-TOBACC O USER-HX OF USE [facility] Feb 16, 2001 03:11 PM CURRENT NON-TOBACC O USER-HX OF USE quit 2 yrs ago, 1 pk day [facility] Encounter Notes: All associated encounter notes This section contains the clinical notes associated to the Encounter. Date/Time Encounter Note(s) Provider Source Jan 17, 2025 12:47 PM PRIMARY CARE PROGR ESS NOTE: LOCAL TITLE: PRIMARY CARE CLINIC PROGRESS NOTE PB STANDARD TITLE: PRIMARY CARE PROGRESS NOTE DATE OF NOTE: JAN 17, 2025@12:47 ENTRY DATE: JAN 17, 2025@12:47:37 AUTHOR: MICHELLE BURNETT EXP COSIGNER: URGENCY: STATUS: COMPLETED Date & Time: Dec@12:50 This is a 79 year old MALE Allergies: Patient has answered NKA CC: right eye injury HPI: presented today to the clinic as a walk-in with complaints of having hit been hit in the eye with a branch that caused excessive tearing and watering of his eye that has progressed into pain in the eye has not been seen at [facility] but I will call since we have do not have the capability to check for any kind of scratches in the eye. [facility] called they are able to work patient in for 230 today agrees with plan of care instructed on severity of worsening if we do not treat appropriately with the right eye having pain with excessive tearing and already becoming red and irritated has attempted to rub his eye several times will go ahead and place consult for [facility] because of excessive tearing pain in the eye and the injury from the branch for the need to have it evaluated as soon as possible. Temperature: 98 F [36.7 C] (01/17/2025 12:48) Respiratory Rate: 18 (01/17/2025 12:48) Pulse Rate: 87 (01/17/2025 12:48) Blood Pressure: 103/58 (01/17/2025 12:48) HT: 70 in [177.8 cm] (03/30/2019 14:05) WT: 173.1 lb [78.52 kg] (11/23/2024 11:39) BMI: 24.9 97% (01/17/2025 12:48) REVIEW OF SYSTEMS: HEENT: right eye red and irritated, right eye watering and painful. No headache. No blurry vision, vision loss, or foreign body. No runny nose, congestion, or nose bleed. No hearing loss, ringing in the ears, or vertigo. No sore throat or dental pain. MUSCULOSKELETAL: No muscle or joint pain. SKIN: No rash, lesions, or infection PSYCH: No depression and anxious at this time. Not suicidal. 1) Diabetes mellitus type 2 (SNOMED CT 00841819) 2) GERD - Gastro-esophageal reflux disease 3) Essential hypertension (SNOMED CT 39445253) 4) Chronic obstructive lung disease (SNOMED CT 29907394) 5) Sleep apnea syndrome 6) Allergic rhinitis (SNOMED CT 69206807) 7) HL - Hearing loss 8) Carotid artery stenosis 9) Hyponatremia 10) Obstructive sleep apnea (SNOMED CT 85544855) 11) Cerebral ischemia (SNOMED CT 052342119) 12) HLD - Hyperlipidemia 13) History of cholecystectomy 14) PVD - peripheral vascular disease 15) Benign prostatic hypertrophy with outflow obstruction 16) Vertigo 17) Cerebral infarction 18) CAD - Coronary Artery Disease (SCT 88897706) 19) Dysphagia (SCT 99598169) Active Outpatient Medications (including Supplies): Active Outpatient [...] ONE TABLET BY MOUTH ONCE A ACTIVE DAY FOR HEART/BLOOD PRESSURE 5) ASPIRIN 81MG [...] BENEFITS) Indication: FOR RHINITIS 14) GLUCOSE SENSOR FREESTYLE BRADLEY 2 USE SENSOR EVERY 2 WEEKS ACTIVE CHANGE SENSOR/SITE EVERY 14 DAYS. TO REPLACE SENSOR FOR ANY REASON OR FOR TECHNICAL HELP PLEASE CALL [facility] HELP DESK: -SPECIFIC PHONE NUMBER: [phone]). Indication: FOR BLOOD SUGAR MONITORING 15) INSULIN SYRINGE 1ML 30G 12MM USE 1 SYRINGE UNDER THE SKIN ACTIVE (S) ONCE A DAY FOR USE WITH INSULIN TO CONTROL BLOOD SUGAR. 16) INSULIN,ASPART(EQV-NOVLG)100 UN/ML FLXPEN INJECT 10 UNITS ACTIVE [...] TAKE ONE CAPSULE BY MOUTH EVERY ACTIVE EVENING APPROXIMATELY 30 MINUTES AFTER THE SAME [...] noted, A&Ox3, pleasant, appears stated age HEENT: Right eye erythematous and with excessive tearing and pain Abdomen: Soft, non-distended, non-tender Ext: No clubbing, cyanosis, edema or obvious deformity Neuro: Grossly intact Psych: Affect normal, answers questions appropriately throughout visit Assessment/Plan: right eye pain -current plan send to [facility] appointment scheduled for today at 230 consult to [facility] placed and nurse notified to contact care in the community of consult and need to expedite Follow-up: ____ as needed. Discussed with patient that in the event of community imaging / testing being ordered in the future, once the imaging / testing has been completed, please notify PACT of completion at outside facility if not called with results within 1 week by a [place] PACT member; this is due to intermittent lapses in notification of imaging completion within [facility]. All questions answered; agrees to plan of care. Follow up as listed above, annually, and as needed. Keep all appointments. Medications Reconciled. See AVS given to . Time spent 30 minutes. Michelle BREWER /felisha/ NOÉ Smith, MSN, [facility] Signed: 01/17/2025 14:26 MICHELLE BURNETT [facility]
--- OUTSIDE RECORDS SUMMARY | 2025-01-17 09:05 | XMS_ITS | Encounter Summary ---
Author Name [facility] [place] Address [address] [place] [address] Care Team Providers Care Sequencing Machine Operator Name Role Phone NURANITHA Primary Care Provider [...] AETNA POINT OF SERVICE MHBP Sep 26, [id number] SURRITTFIDEL Abdullahi PATIENT AETNA POINT OF SERVICE MHBP POS Sep 26, 2017 [id number] [phone] SURRITTFIDEL Abdullahi PATIENT AETNA MEDICARE SECONDARY (NO B EXC) MHBP* Jul 28, 2017 [id number] [phone] SURRITTFIDEL Abdullahi PATIENT AETNA (MAILHANDL ERS) MEDICARE SECONDARY (NO B EXC) MHBP Sep 26, 2017 [id number] FIDEL HOLLIDAY PATIENT AETNA-MHBP POINT OF SERVICE MHBP Jul 28, 2017 [id number] SURRITTE, FIDEL PATIENT AETNA-MHBP POINT OF SERVICE MHBP Jul 28, 2017 [id number] SURRITTE, FIDEL PATIENT [place] ([id number]) PRESCRIPT ION [id number] Jul 28, 2023 [id number] SURRITTE, FIDEL PATIENT [place] ([id number]) PRESCRIPT ION MHBP Jul 28, 2017 [id number] SURRITTE, FIDEL PATIENT [place] ([id number]) PRESCRIPT ION MHBP Jul 28, 2017 [id number] [phone] SURRITTE, FIDEL PATIENT CAREMARK ([id number]) RX PRESCRIPT ION MHBP Sep 26, 2017 [id number] [phone] SURRITTE, FIDEL PATIENT MEDICARE ([facility]) MEDICARE (M) PART A May 28, 2008 PART A [id number] [phone] SURRITTE, FIDEL PATIENT MEDICARE ([facility]) MEDICARE () PART A May 28, 2008 PART A [id number] [id number] SURRITTE, FIDEL PATIENT MEDICARE ([facility]) MEDICARE (M) PART A May 28, 2008 PART A [id number] SURRITTE, FIDEL PATIENT MEDICARE (WNR) MEDICARE (M) PART A May 28, 2008 PART A [id number] [id number] SURRITTE, FIDEL PATIENT MEDICARE ([facility]) MEDICARE () PART A May 28, 2008 PART A [id number] [phone] SURRITTE, FIDEL PATIENT MEDICARE ([facility]) MEDICARE (M) PART A May 28, 2008 PART A [id number] SURRITTE, FIDEL PATIENT MEDICARE PART D ([facility]) MEDICARE (M) PART D Jul 28, 2023 PART D [id number] [phone] SURRITTE, FIDEL PATIENT Selected Encounter This section includes the information on record at [place] for the Encounter. Date/Time Encounter Type Encounter Description Reason Pro vider Source Jan 17, 2025 02:05 PM Outpatient Encounter COMMUNITY CARE CONSULT IHE Encounter Template Text not used by [place] Plan of Treatment: Future Appointments (+ 6 months) and Future Tests (+/- 45 days) The Plan of Treatment section includes future care activities for the patient from all [place] treatmentfacilities. This section includes future appointments and future orders which are active, pending or scheduled. Future Appointments This section includes appointments that were scheduled to occur 6 months from the date of the Encounter, up to a maximum of 20 appointments. The data comes from all [place] treatment facilities. Appointment Date/Time Appointment Type Appointme nt Facility Name Jan 18, 2025 10:15 AM AMBULATORY - MEDICINE [facility] Jan 19, 2025 09:45 AM AMBULATORY - MEDICINE [facility] Apr 08, 2025 09:30 AM AMBULATORY - MEDICINE [facility] Active, Pending, and Scheduled Orders This section includes a listing of several types of active, pending, and scheduled orders, including clinic medications orders, diagnostic test orders, procedure orders and consult orders; where the start date of the order is 45 days before the date of the Encounter or 45 days after the date of theEncounter. The data comes from all [place] treatment [facility]. Test Date/Time Test Type Test Details Facility Name Jan 14, 2025 12:04 PM Consult Order COMMUNITY CARE-PODIATRY [id number] Cons Scanning Manager's Choice [facility] Jan 17, 2025 12:57 PM Consult Order COMMUNITY CARE-OPHTH DIS MGMT [id number] Cons Scanning Manager's [facility] Lab Results: +/- 30 days of the encounter This section includes the Chemistry and Hematology Lab Results on record with [place] for the patient. Radiology Reports and Pathology Reports are provided separately, in subsequent sections. Lab Results This section contains the Chemistry/Hematology Results that were resulted 30 days before or 30 daysafter the date of the Encounter. Date/Time Source Result Type Result - Unit Interpretation Reference Range Specimen Type Comment Jan 04, 2025 11:47 AM [facility] URINALYSIS W/ CX REFLEX (STL-PB) URINE Specim en Type: URINE No comment entered. Ordering Provider: LUIS MANUEL BURNETT Report Released Date/Time: Dec 30, 2024 11:37 AM Reporting Lab: [place] [facility] [address] [place] [place] [address] Performing Lab: [place] [facility] [facility] [address] [place] [address] URINE COLOR Light Yellow Yellow U.BILIRUBIN NEGATIVE [...] Encounter Note(s) Provider Source Jan 17, 2025 02:05 PM LETTERS: LOCAL TITLE: COMMUNITY CARE-REFERRAL PB (AUTO-PRINT) STANDARD TITLE: LETTERS DATE OF NOTE: JAN 17, 2025@14:05:15 ENTRY DATE: JAN 17, 2025@14:05:15 AUTHOR: PETE HARRIS COSIGNER: URGENCY: STATUS: COMPLETED Fidel Holliday [address] [address] Dear FIDEL HOLLIDAY, Your [place] provider has referred you to a provider within the community for care. Your medical care for PODIATRY has been authorized with the Community Care Provider listed below. DO NOT REPORT TO THE [facility] Provider info: An appointment has been scheduled for you on: Jan 18, 2025 10:15 AM Office Name: [facility] Address: [address] [place] [address] Address: [place], [place] Auth #: [id number] Referral Issue Date: 01/17/25 Expiration Date: 07/17/25 If you are unable to keep this appointment or the appointment is no longer needed, please contact the community provider above for notification/rescheduling and then call the [facility] [place] Community Care Office at [phone] ext [phone]. If you need additional care/services not mentioned above, please contact your primary care provider for a new referral. Co-Payments: If you are required to pay a VA co-payment, you will be billed by the VA for each authorized visit that you attend. However, you are NOT REQUIRED to make co-payments to a Community Provider. Prescriptions: Your community provider may write a prescription related to the authorized care. If there is an immediate need for your prescriptions from your community care visit, you may be able to get up to a 14-day fill of your prescription at your own expense for the cost of the medication, and may seek reimbursement from the VA. If you require more than a 14-day supply or if the prescribed medication is not immediately needed, your community provider will send a prescription to a VA pharmacy so that the VA can provide you with your routine medication. In-network locations can be found at https://www.va.gov/find-lo cations/ Medical Devices: Your community provider may recommend that medical devices, adapted equipment, or other items be provided for the treatment or rehabilitation of your medical condition. Veterans are generally required to obtain these items through the Prosthetics and Sensory Aids Service (PSAS) in your referring facility. Emergency/Inpatient Services: You, your community provider, or your family must provide notification within 72hr or ER visit and/or admission by [phone]. Thank you for the opportunity to serve you and for your service to our great nation! SHARON Golden [facility] Care in the Community [address] [facility] [place] [address] PETE HARRIS [facility]
--- OUTSIDE RECORDS SUMMARY | 2025-01-17 10:56 | XMS_ITS | Encounter Summary ---
Author Name [facility] [place] [facility] [place] [facility] [place] Address [address] [place] [address] Care Team Providers Care Obstetrician/Gynecologist Name Role Phone NURANITHA Primary Care Provider [...] AETNA POINT OF SERVICE [facility]BP Sep 26, [id number] [phone] SURRITTFIDEL Abdullahi PATIENT AETNA POINT OF SERVICE MHBP POS Sep 26, 2017 [id number] SURRITTFIDEL Abdullahi PATIENT AETNA MEDICARE SECONDARY (NO B EXC) MHBP* Jul 28, 2017 [id number] SURRITTFIDEL Abdullahi PATIENT AETNA (MAILHANDL ERS) MEDICARE SECONDARY (NO B EXC) MHBP Sep 26, 2017 [id number] FIDEL HOLLIDAY PATIENT AETNA-MHBP POINT OF SERVICE MHBP Jul 28, 2017 [id number] [phone] SURRITTE, FIDEL PATIENT AETNA-MHBP POINT OF SERVICE MHBP Jul 28, 2017 [id number] SURRITTE, FIDEL PATIENT [facility] ([id number]) PRESCRIPT ION [id number] Jul 28, 2023 [id number] SURRITTE, FIDEL PATIENT CAR[place]ARK ([id number]) PRESCRIPT ION MHBP Jul 28, 2017 [id number] SURRITTE, FIDEL PATIENT CAREMARK ([id number]) PRESCRIPT ION MHBP Jul 28, 2017 [id number] SURRITTE, FIDEL PATIENT CAREMARK ([id number]) RX PRESCRIPT ION MHBP Sep 26, 2017 [id number] [phone] SURRITTE, FIDEL PATIENT MEDICARE ([facility]) MEDICARE () PART A May 28, 2008 PART A [id number] SURRITTE, FIDEL PATIENT MEDICARE ([facility]) MEDICARE () PART A May 28, 2008 PART A [id number] SURRITTE, FIDEL PATIENT MEDICARE ([facility]) MEDICARE () PART A May 28, 2008 PART A [id number] [phone] SURRITTE, FIDEL PATIENT MEDICARE ([facility]) MEDICARE (M) PART A May 28, 2008 PART A [id number] SURRITTE, FIDEL PATIENT MEDICARE ([facility]) MEDICARE () PART A May 28, 2008 PART A [id number] SURRITTE, FIDEL PATIENT MEDICARE ([facility]) MEDICARE () PART A May 28, 2008 PART A [id number] SURRITTE, FIDEL PATIENT MEDICARE PART D ([facility]) MEDICARE (M) PART D Jul 28, 2023 PART D [id number] SURRITTE, FIDEL PATIENT Selected Encounter This section includes the information on record at [place] for the Encounter. Date/Time Encounter Type Encounter Description Reason Pro vider Source Jan 17, 2025 03:56 PM Outpatient Encounter COMMUNITY CARE CONSULT IHE Encounter Template Text not used by [place] Plan of Treatment: Future Appointments (+ 6 months) and Future Tests (+/- 45 days) The Plan of Treatment section includes future care activities for the patient from all [place] treatmentfacilities. This section includes future appointments and future orders which are active, pending or scheduled. Future Appointments This section includes appointments that were scheduled to occur 6 months from the date of the Encounter, up to a maximum of 20 appointments. The data comes from all [place] treatment facilities. Appointment Date/Time Appointment Type Appointme nt Facility Name Jan 18, 2025 10:15 AM AMBULATORY - MEDICINE [facility] Jan 19, 2025 09:45 AM AMBULATORY - MEDICINE [facility] Apr 08, 2025 09:30 AM AMBULATORY - MEDICINE [facility] Active, Pending, and Scheduled Orders This section includes a listing of several types of active, pending, and scheduled orders, including clinic medications orders, diagnostic test orders, procedure orders and consult orders; where the start date of the order is 45 days before the date of the Encounter or 45 days after the date of theEncounter. The data comes from all [place] treatment [facility]. Test Date/Time Test Type Test Details Facility Name Jan 14, 2025 12:04 PM Consult Order COMMUNITY CARE-PODIATRY [id number] Cons Corporate Director Of Human Resources's Choice [facility] Jan 17, 2025 12:57 PM Consult Order COMMUNITY CARE-OPHTH DIS MGMT [id number] Cons Corporate Director Of Human Resources's [facility] Lab Results: +/- 30 days of the encounter This section includes the Chemistry and Hematology Lab Results on record with [place] for the patient. Radiology Reports and Pathology Reports are provided separately, in subsequent sections. Lab Results This section contains the Chemistry/Hematology Results that were resulted 30 days before or 30 daysafter the date of the Encounter. Date/Time Source Result Type Result - Unit Interpretation Reference Range Specimen Type Comment Jan 04, 2025 11:47 AM [facility] URINALYSIS W/ CX REFLEX (STL-PB) URINE Specim en Type: URINE No comment entered. Ordering Provider: LUIS MANUEL BURNETT Report Released Date/Time: Dec 30, 2024 11:37 AM Reporting Lab: [place] [facility] [address] [place] [address] Performing Lab: [facility] [place] [facility] [address] [place] [address] URINE COLOR Light Yellow Yellow U.BILIRUBIN NEGATIVE [...] Encounter Note(s) Provider Source Jan 17, 2025 03:56 PM LETTERS: LOCAL TITLE: COMMUNITY CARE-REFERRAL PB (AUTO-PRINT) STANDARD TITLE: LETTERS DATE OF NOTE: JAN 17, 2025@15:56:30 ENTRY DATE: JAN 17, 2025@15:56:31 AUTHOR: KISHORE MURRY COSIGNER: URGENCY: STATUS: COMPLETED Fidel Holliday [address] [place] [address] Dear FIDEL HOLLIDAY, Your [place] provider has referred you to a provider within the community for care. Your medical care for OPHTHALMOLOGY has been authorized with the Community Care Provider listed below. DO NOT REPORT TO THE [facility] Provider info: An appointment has been scheduled for you on: Jan 17, 2025 03:00 PM Office Name: [facility] Address: [address] [facility] Address: [place] [address] Auth #: [id number] Referral Issue Date: 01/17/2025 Expiration Date: 01/17/2026 If you are unable to keep this appointment or the appointment is no longer needed, please contact the community provider above for notification/rescheduling and then call the [facility] [place] Community Care Office at [phone] or [phone]. If you need additional care/services not mentioned [...] medication. In-network locations can be found at https://www.va.gov/find-loca tions/ Medical Devices: Your community provider may recommend [...] 72hr or ER visit and/or admission by [phone]. Thank you for the opportunity to serve you and for your service to our great nation! Mitch Bonillahing [facility] Care in the Community [address] [facility] [place] [address] KISHORE MURRY [facility]
--- OUTSIDE RECORDS SUMMARY | 2025-01-19 04:45 | XMS_ITS | Encounter Summary ---
Author Name [facility] [facility] [place] [facility] [place] Address [address] [place] [address] Care Team Providers Care Cigarette Seller Name Role Phone NUR, ANITHA Primary Care [...] OF SERVICE MHBP POS Sep 26, 2017 [id number] [phone] [id number] SURRITTMARIBEL Abdullahi PATIENT AETNA POINT OF SERVICE MHBP Sep 26, 2017 [id number] SURRITTMARIBEL Abdullahi PATIENT AETNA MEDICARE SECONDARY (NO B EXC) MHBP* Jul 28, 2017 [id number] SURRITTMARIBEL Abdullahi PATIENT AETNA (MAILHANDL ERS) MEDICARE SECONDARY (NO B EXC) MHBP Sep 26, 2017 [id number] SURRIMARIBEL INIGUEZ PATIENT AETNA-MHBP POINT OF SERVICE MHBP Jul 28, 2017 [id number] [id number] SURRITTE, MARIBEL PATIENT AETNA-MHBP POINT OF SERVICE MHBP Jul 28, 2017 [id number] [phone] SURRITTE, MARIBEL PATIENT CAREMARK ([id number]) PRESCRIPT ION [id number] Jul 28, 2023 [id number] SURRITTE, MARIBEL PATIENT CAREMARK ([id number]) PRESCRIPT ION MHBP Jul 28, 2017 [id number] [phone] SURRITTE, MARIBEL PATIENT CAREMARK ([id number]) PRESCRIPT ION MHBP Jul 28, 2017 [id number] [phone] SURRITTE, MARIBEL PATIENT CAREMARK ([id number]) RX PRESCRIPT ION MHBP Sep 26, 2017 [id number] [phone] SURRITTE, MARIBEL PATIENT MEDICARE ([facility] MEDICARE (M) PART A May 28, 2008 PART A [id number] SURRITTE, MARIBEL PATIENT MEDICARE ([facility] MEDICARE (M) PART A May 28, 2008 PART A [id number] SURRITTE, MARIBEL PATIENT MEDICARE (WNR) MEDICARE (M) PART A May 28, 2008 PART A [id number] [phone] SURRITTE, MARIBEL PATIENT MEDICARE (WNR) MEDICARE (M) PART A May 28, 2008 PART A [id number] [phone] SURRITTE, MARIBEL PATIENT MEDICARE ([facility] MEDICARE (M) PART A May 28, 2008 PART A [id number] SURRITTE, MARIBEL PATIENT MEDICARE ([facility] MEDICARE (M) PART A May 28, 2008 PART A [id number] SURRITTE, MARIBEL PATIENT MEDICARE PART D (WNR) MEDICARE (M) PART D Jul 28, 2023 PART D [id number] SURRITTE, MARIBEL PATIENT Selected Encounter This section includes the information on record at [place] for the Encounter. Date/Time Encounter Type Encounter Description Reason Provider Source Jan 19, 2025 09:45 AM OFF/OP EST NOVEMBER X REQ PHY/QHP PRIMARY CARE/MEDICINE ICD-10-CM Z01.30 Encounter for exam of blood pressure w/o abnormal findings ALVIN CARBALLO IHE Encounter Template Text not used by [place] Assessments - Encounter Diagnoses This section includes the primary and secondary diagnoses documented for the Encounter. Date/Time Primary/Secondary Diagnosis Diagnosis Name Provider Source Jan 19, 2025 12:07 PM PRIMARY Encounter for exam of blood pressure w/o abnormal findings AXEL CARBALLO [facility] Plan of Treatment: Future Appointments (+ 6 [...] Appointment Type Appointme nt Facility Name Apr 08, 2025 09:30 AM AMBULATORY - MEDICINE [facility] Active, Pending, and Scheduled Orders This section includes a listing of several types of active, pending, and scheduled orders, including clinic medications orders, diagnostic test orders, procedure orders and consult orders; where the start date of the order is 45 days before the date of the Encounter or 45 days after the date of theEncounter. The data comes from all [place] treatment facilities. Test Date/Time Test Type Test Details Facility Name Jan 14, 2025 12:04 PM Consult Order COMMUNITY CARE-PODIATRY [id number] Cons Valve Seater Operator's Choice [place] [facility] Jan 17, 2025 12:57 PM Consult Order COMMUNITY CARE-OPHTH DIS MGMT [id number] Cons Valve Seater Operator's Choice [facility] Lab Results: +/- 30 days of the [...] Type Comment Jan 04, 2025 11:47 AM [facility] URINALYSIS W/ CX REFLEX (STL-PB) URINE Specim en Type: URINE No comment entered. Ordering Provider: LUIS MANUEL BURNETT Report Released Date/Time: Dec 30, 2024 11:37 AM Reporting Lab: [place] [facility] [address] [facility] [place] [facility] [address] Performing Lab: [place] [facility] [address] [facility] [place] [facility] [address] URINE COLOR Light Yellow Yellow U.BILIRUBIN NEGATIVE [...] Height Weight Body Mass Index Source Jan 19, 2025 10:20 AM 69 /min 135/71 mm[Hg] 18 /min 98 % 168.9 lb 24 [facility] Social History: Smoking Status (Most current) and Tobacco Use (All prior to encounter date) This section includes the most current, and the historical, smoking and tobacco- related health factors from the [place] facility where the Encounter took place. Current Smoking Status This section includes the most current smoking, or tobacco-related health factor, from the [place] facility where the Encounter took place. Date/Time Current Smoking Status Comment Facil ity Feb 02, 2024 08:30 AM [place]-TOBACCO QUIT 15 YRS OR MORE [facility] Tobacco Use History This section includes a history of the smoking, or tobacco-related health factors, that were collected on or before the date of the Encounter. The data comes from the [place] facility where the Encounter took place. Date/Time Smoking Status/Tobacco Use Comment F acility Feb 02, 2024 08:30 AM [place]-TOBACCO QUIT 15 YRS OR MORE [facility] Feb 17, 2023 10:30 AM [place]-TOBACCO FORMER USER [facility] Feb 17, 2023 10:30 AM VA-TOBACCO QUIT 15 YRS OR MORE [facility] Feb 20, 2022 10:00 AM VA-TOBACCO FORMER USER [facility] Feb 20, 2022 10:00 AM VA-TOBACCO QUIT 15 YRS OR MORE [facility] Feb 17, 2019 10:44 AM VA-TOBACCO FORMER USER [facility] Feb 17, 2019 10:44 AM VA-TOBACCO QUIT 15 YRS OR MORE [facility] Feb 15, 2019 09:43 AM VA-TOBACCO FORMER USER [facility] Feb 15, 2019 09:43 AM VA-TOBACCO QUIT 15 YRS OR MORE [facility] Apr 08, 2018 01:31 PM QUIT TOBACCO >7 YEARS AGO [facility] Oct 28, 2017 08:48 AM QUIT TOBACCO >7 YEARS AGO [facility] May 28, 2017 11:33 AM QUIT TOBACCO >7 YEARS AGO [facility] May 17, 2008 08:50 AM QUIT TOBACCO >7 YEARS AGO [facility] Oct 30, 2007 08:52 AM QUIT TOBACCO >7 YEARS AGO [facility] Mar 09, 2007 08:13 AM QUIT TOBACCO >7 YEARS AGO [facility] Jun 11, 2005 08:28 AM LIFETIME NON-TOBACCO USER [facility] Apr 08, 2005 10:40 AM CURRENT NON-TOBACC O USER-HX OF USE [facility] Oct 05, 2004 11:10 AM CURRENT NON-TOBACC O USER-HX OF USE [facility] Jun 29, 2004 08:36 AM CURRENT NON-TOBACC O USER-HX OF USE [facility] Dec 30, 2003 11:01 AM CURRENT NON-TOBACC O USER-HX OF USE [facility] Jul 15, 2003 11:11 AM CURRENT NON-TOBACC O USER-HX OF USE quit Jul 1998 [facility] Dec 27, 2002 12:57 PM CURRENT NON-TOBACC O USER-HX OF USE [facility] Mar 31, 2002 10:19 AM CURRENT NON-TOBACC O USER-HX OF USE [facility] Sep 15, 2001 01:22 PM CURRENT NON-TOBACC O USER-HX OF USE [facility] Feb 16, 2001 03:11 PM CURRENT NON-TOBACC O USER-HX OF USE quit 2 yrs ago, 1 pk day [facility] Encounter Notes: All associated encounter notes This section contains the clinical notes associated to the Encounter. Date/Time Encounter Note(s) Provider Source Jan 19, 2025 10:11 AM NURSING PROGRESS N OTE: LOCAL TITLE: NURSING NOTE PB STANDARD TITLE: NURSING PROGRESS NOTE DATE OF NOTE: JAN 19, 2025@10:11 ENTRY DATE: JAN 19, 2025@10:11:19 AUTHOR: AXEL CARBALLO COSIGNER: URGENCY: STATUS: COMPLETED This is a 79 year old MALE [...] REASON OR FOR TECHNICAL HELP PLEASE CALL [employer] DESK: -SPECIFIC PHONE NUMBER: ([phone]). Indication: FOR BLOOD SUGAR MONITORING 15) INSULIN [...] EXTERNAL USE ONLY. Indication: FOR CONTACT DERMATITIS C/C: BP check S: The presented to the clinic today for BP check. The reports that he is taking his medications as ordered, reports that there have been no recent changes to his BP medications. The brought in a BP log with him today which shows his BP being all over the place. O/A: The ambulated to the exam room without assistance, gait is steady. Vitals were stable today. Vital Signs: as needed P: Let the know that his BP looked good today and that he should continue with his current medications as ordered. Talked to the about being consistent with how he is taking his BP. So we could have a good base line for what his BP is doing. -wait at least one hour after taking BP medication to check BP so we could see what the BP was doing for him -Set with feet flat on the ground, don't smoke or drink caffeine right before checking Also let him know I would be giving his BP log to his provider to review and if he had any further changes or recommendations his nurse would call him. The voiced understanding, is in agreement with the plan and has no further questions or complaints at this time. The ambulated to the exit in satisfactory manner. RTC: as needed Per [facility] Directive 1605.06, wristband documentation: Patient wristband was removed and destroyed by (staff name) Twyla Carballo RN and placed in the designated SHred-It bin. /felisha/ Axel Carballo RN,BSN [place], [facility] Signed: 01/19/2025 12:06 Receipt Acknowledged By: 01/19/2025 14:52 /felisha/ MD CAROL BELL III [facility] JANIE,[facility]
--- OUTSIDE RECORDS SUMMARY | 2025-01-19 06:17 | XMS_ITS | Encounter Summary ---
Author Name [facility] [place] [facility] [place] [facility] [place] Address [address] [place] [address] Care Team Providers Care Plow Mechanic Name Role Phone NUR, ANITHA Primary Care [...] AETNA POINT OF SERVICE MHBP Sep 26, [id number] [phone] SURRITTFIDEL Abdullahi PATIENT AETNA POINT OF SERVICE MHBP POS Sep 26, 2017 [id number] SURRITTFIDEL Abdullahi PATIENT AETNA MEDICARE SECONDARY (NO B EXC) MHBP* Jul 28, 2017 [id number] [phone] SURRITTFIDEL Abdullahi PATIENT AETNA (MAILHANDL ERS) MEDICARE SECONDARY (NO B EXC) MHBP Sep 26, [id number] FIDEL ALCAZAR PATIENT AETNA-MHBP POINT OF SERVICE MHBP Jul 28, 2017 [id number] SURRITTE, FIDEL PATIENT AETNA-MHBP POINT OF SERVICE MH[facility] Jul 28, 2017 [id number] SURRITTE, FIDEL PATIENT CAREMARK ([id number]) PRESCRIPT ION [id number] Jul 28, 2023 [id number] SURRITTE, FIDEL PATIENT CAREMARK ([id number]) PRESCRIPT ION MHBP Jul 28, 2017 [id number] [phone] SURRITTE, FIDEL PATIENT CAREMARK ([id number]) PRESCRIPT ION MHBP Jul 28, 2017 [id number] [phone] SURRITTE, FIDEL PATIENT CAREMARK ([id number]) RX PRESCRIPT ION MHBP Sep 26, 2017 [id number] [phone] SURRITTE, FIDEL PATIENT MEDICARE ([facility]) MEDICARE () PART A May 28, 2008 PART A [id number] SURRITTE, FIDEL PATIENT MEDICARE ([facility]) MEDICARE () PART A May 28, 2008 PART A [id number] SURRITTE, FIDEL PATIENT MEDICARE ([facility]) MEDICARE () PART A May 28, 2008 PART A [id number] [phone] SURRITTE, FIDEL PATIENT MEDICARE ([facility]) MEDICARE (M) PART A May 28, 2008 PART A [id number] [phone] SURRITTE, FIDEL PATIENT MEDICARE (WN) MEDICARE () PART A May 28, 2008 PART A [id number] SURRITTE, FIDEL PATIENT MEDICARE ([facility]) MEDICARE () PART A May 28, 2008 PART A [id number] SURRITTE, FIDEL PATIENT MEDICARE PART D ([facility]) MEDICARE () PART D Jul 28, 2023 PART D [id number] [phone] SURRITTE, FIDEL PATIENT Selected Encounter This section includes the information on record at [place] for the Encounter. Date/Time Encounter Type Encounter Description Reason Provider Source Jan 19, 2025 11:17 AM Outpatient Encounter PRIMARY CARE/MEDICINE FRANCIS MAHER Encounter Template Text not used by [place] Plan of Treatment: Future Appointments (+ 6 months) and Future Tests (+/- 45 days) The Plan of Treatment section includes future care activities for the patient from all [place] treatmentfacilities. This section includes future appointments and future orders which are active, pending or scheduled. Future Appointments This section includes appointments that were scheduled to occur 6 months from the date of the Encounter, up to a maximum of 20 appointments. The data comes from all [place] treatment facilities. Appointment Date/Time Appointment Type Appointme nt Facility Name Apr 08, 2025 09:30 AM AMBULATORY - MEDICINE [facility] Active, Pending, and Scheduled Orders This section includes a listing of several types of active, pending, and scheduled orders, including clinic medications orders, diagnostic test orders, procedure orders and consult orders; where the start date of the order is 45 days before the date of the Encounter or 45 days after the date of theEncounter. The data comes from all [facility] facilities. Test Date/Time Test Type Test Details Facility Name Jan 14, 2025 12:04 PM Consult Order COMMUNITY CARE-PODIATRY [id number] Cons Business Data Analyst's Choice [facility] Jan 17, 2025 12:57 PM Consult Order COMMUNITY CARE-OPHTH DIS MGMT [id number] Cons Business Data Analyst's Choice [facility] Lab Results: +/- 30 days of the encounter This section includes the Chemistry and Hematology Lab Results on record with [place] for the patient. Radiology Reports and Pathology Reports are provided separately, in subsequent sections. Lab Results This section contains the Chemistry/Hematology Results that were resulted 30 days before or 30 daysafter the date of the Encounter. Date/Time Source Result Type Result - Unit Interpretation Reference Range Specimen Type Comment Jan 04, 2025 11:47 AM [facility] URINALYSIS W/ CX REFLEX (STL-PB) URINE Specim en Type: URINE No comment entered. Ordering Provider: LUIS MANUEL BURNETT Report Released Date/Time: Dec 30, 2024 11:37 AM Reporting Lab: [place] [facility] [address] [place] [address] Performing Lab: [place] [facility] [address] [facility] [place] [address] URINE COLOR Light Yellow Yellow U.BILIRUBIN NEGATIVE [...] Encounter Note(s) Provider Source Jan 19, 2025 11:17 AM PRIMARY CARE SECUR E MESSAGING: LOCAL TITLE: PRIMARY CARE SECURE MESSAGING STANDARD TITLE: PRIMARY CARE SECURE MESSAGING DATE OF NOTE: JAN 19, 2025@11:17 ENTRY DATE: JAN 19, 2025@10:17:30 AUTHOR: FRANCIS MAHER EXP COSIGNER: URGENCY: STATUS: COMPLETED PRIMARY CARE SECURE MESSAGING Has ADDENDA ------Original Message ---- Sent: 01/17/2025 07:55 PM ET From: FIDEL ALCAZAR KENNY To: Todd, [facility] Subject: Appointment:Appointment? I turned two weeks worth of BP reading to Yin today, do I still need to see nurse and drop the reading off at [facility] Friday at 9:45?? If not please let me know. Also please tell Yin that I did have a pretty bad tear on right eye, lower right and was put on antibiotic drops four times a day and cream for the eye in bedtime. Thanks for the great job all of you do in [place] Team. Fidel /felisha/ FRANCIS MAHER LPN Signed: 01/19/2025 10:17 Receipt Acknowledged By: 01/19/2025 12:12 /felisha/ NOÉ Smith, MSN, Carol Golden [facility] 01/19/2025 13:24 /es/ MD CAROL BELL III [facility] 01/19/2025 ADDENDUM STATUS: COMPLETED Sap Security Consultant advised that at this point we will cancel his nurse visit but once provider has reviewed readings if they want him back in we will contact him to reschedule the appt. /felisha/ FRANCIS MAHER LPN Signed: 01/19/2025 10:20 FRANCIS MAHER [facility]
--- OUTSIDE RECORDS SUMMARY | 2025-01-22 13:33 | XMS_ITS | Continuity of Care Document ---
Author Name [facility] Organization [facility] Care Team Providers Care Speech Correction Assistant Name Role Phone [facility] Unavailable Unavailable Problems Combined list of problems from Department of Defense and Veterans Affairs facilities. It does not include entries that were removed or entered in error. Problem Status Onset Date Problem Type Date of Resolution Comments Source Allergic rhinitis (SNOMED CT 78925728) Active Condition [facility] Benign prostatic hypertrophy with outflow obstruction Active Condition [facility] CAD - Coronary Artery Disease (SCT 16994939) Active Condition Jun 14, 2024 Entered By: LUIS MANUEL BURNETT Comment: Angiogram with stent placemnt to OM vessel for total occulsion 03/23/24 [facility] Carotid artery stenosis Active Condition Jul 11, 2020 Entered By: AMY BRAVO Comment: Left carotid endarterectomy. Apr 11, 2023 Entered By: AMY BRAVO Comment: 03/2023.....50-6 9% stenosis on left, increased from previous, and < 50% on right.Sep 29, 2023 Entered By: BANDAR ESCOBAR Comment: carotid artery sx anticipated mid end of 09/2023 [facility] Cerebral infarction Active Condition Apr 09, 2022 Entered By: AMY BRAVO Comment: Incidental finding on CT 03/2022. [facility] Cerebral ischemia (SNOMED CT [id number]) Active Condition [facility] Chronic obstructive lung disease (SNOMED CT 25790755) Active Condition [facility] DIABETES M W/O COMP TYPE I Active Condition [facility] DIABETES MELLI W/0 COMP TYP I Active Condition [facility] Diabetes mellitus type 2 (SNOMED CT 01519018) Active Condition [facility] DIVERTICULOSIS OF COLON Active Condition [facility] Dysphagia (SCT 51443646) Active Condition [facility] Essential hypertension (SNOMED CT 76339758) Active Condition [facility] GERD - Gastro-esophageal reflux disease Active Condition [facility] History of cholecystectomy Active Condition [facility] HL - Hearing loss Active Condition [facility] HLD - Hyperlipidaemia Active Condition [facility] Hyponatremia Active Condition [facility] MULTIPHASIC SCREENING Active Condition [facility] Obstructive sleep apnea (SNOMED CT 28397981) Active Condition [facility] PEPTIC ULCER NOS Active Condition [facility] PVD - peripheral vascular disease Active Condition Aug 16 Entered By: AMY BRAVO Comment: MYRTLE 0.2 LLE 07/2020.Feb 19, 2021 Entered By: AMY BRAVO Comment: Angiographic procedure 10/2020 on RLE. LLE deferred due to being asymptomatic. [facility] SCREEN FOR CONDITION NEC Active Condition [facility] SCREEN FOR CONDITION NOS Active Condition [facility] SCREEN-ENDOC/NUT/M ET NEC Active Condition [facility] Sleep apnea syndrome Active Condition [facility] Vertigo Active Condition [facility] Bundle-Branch Block (ICD-9-CM 426.50) Inactive Condition 09/18/2023 [facility] Herpes Zoster * (ICD-9-CM 053.9) Inactive Condition 09/18/2023 [facility] Hip Arthritis Inactive Condition 09/18/2023 [facility] Hip Pain Inactive Condition 09/18/2023 [facility] Impacted Cerumen Inactive Condition 09/18/2023 [facility] Issue of Repeat Prescriptions (ICD-9-CM V68.1) Inactive Condition 03/30/2019 [facility] Laboratory Procedures (ICD-9-CM V72.6) Inactive Condition 03/30/2019 [facility] Pericardial Disease Inactive Condition 09/18/2023 [facility] PROSTATITIS NOS Inactive Condition 09/18/2023 [facility] Routine General Medical Examination at a Health Care Facility * (ICD-9-CM V70.0) Inactive Condition 03/30/2019 [facility] SCREENING FOR ALCOHOLISM Inactive Condition 02/15/2020 [facility] Seizure Disorder Inactive Condition 09/18/2023 [facility] Diagnosis: ICD-10-CM Z01.30 Encounter for exam of blood pressure w/o abnormal findings Active Diagnosis [facility] Diagnosis: ICD-10-CM H57.11 Ocular pain, right eye Active Diagnosis [facility] Diagnosis: ICD-10-CM Z01.31 Encounter for exam of blood pressure w abnormal findings Active Diagnosis [facility] Diagnosis: ICD-10-CM J30.9 Allergic rhinitis, unspecified Active Diagnosis [facility] Diagnosis: ICD-10-CM E11.40 Type 2 diabetes mellitus with diabetic neuropathy, unsp Active Diagnosis [facility] Diagnosis: ICD-10-CM K21.9 Gastro-esophageal reflux disease without esophagitis Active Diagnosis [facility] Diagnosis: ICD-10-CM Z23 Encounter for immunization Active Diagnosis [facility] Diagnosis: ICD-10-CM R42 Dizziness and giddiness Active Diagnosis [facility] Diagnosis: ICD-10-CM I10 Essential (primary) hypertension Active Diagnosis [facility] Diagnosis: ICD-10-CM Z00.00 Encntr for general adult medical exam w/o abnormal findings Active Diagnosis [facility] Diagnosis: ICD-10-CM I21.4 Non-ST elevation (NSTEMI) myocardial infarction Active Diagnosis [facility] Diagnosis: ICD-10-CM Z48.01 Encounter for change or removal of surgical wound dressing Active Diagnosis [facility] Diagnosis: ICD-10-CM L72.3 Sebaceous cyst Active Diagnosis [facility] Diagnosis: ICD-10-CM L98.9 Disorder of the skin and subcutaneous tissue, unspecified Active Diagnosis [facility] Diagnosis: ICD-10-CM E11.9 Type 2 diabetes mellitus without complications Active Diagnosis [facility] Diagnosis: ICD-10-CM Z71.89 Other specified counseling Active Diagnosis [facility] Medications Combined list of outpatient medications from Department of Defense and Veterans Affairs facilities.Medications provided include 1) outpatient medications from the last 15 months, and 2) patient-reported medications. Medication Details Route Status Patient Instructions Prescription Expires Prescription Number Last Dispense Date Ordering Provider Order Date Order Qty Source ALBUTEROL SO4 0.083% INHL,3ML INHALE 1 VIAL (2.5MG/3 ML) BY NEBULIZA TION EVERY 6 HOURS DIRECTED NEEDED FOR COPD NEBULI ZATION ACTIVE 07/09/2025 [id number] 5 SAM BURNETTTEDoyle G 2023 180 [facility] ALBUTEROL SO4 90MCG/ACTUA T (CFC-F) INHL,ORAL,8 .5GM INHALE 2 PUFFS BY ORAL INHALATI ON FOUR TIMES A DAY NEEDED FOR ASTHMA SHAKE WELL. RINSE MOUTHPIE CE FREQUENT LY TO PREVENT CLOGGING . RESPIR ATORY (INHAL ATION) ACTIVE 10/29/2025 [id number] 5 SAM BURNETT 2024 3 [facility] AMLODIPINE BESYLATE 10MG TAB TAKE ONE TABLET BY MOUTH ONCE A DAY FOR HEART/BL OOD PRESSURE ORAL ACTIVE 08/25/2025 [id number] 5 FRANKY NASH 2024 90 [facility] AMLODIPINE BESYLATE 10MG TAB TAKE ONE TABLET BY MOUTH ONCE A DAY FOR HEART/BL OOD PRESSURE ORAL DISCONT INUED 09/04/2024 [id number] 5 KISHORE BRAVO [address] [place] [address] [facility] ASPIRIN 81MG TAB,EC TAKE ONE TABLET BY MOUTH ONCE A DAY FOR HEART OR CIRCULAT ION. TAKE WITH FOOD. ORAL SUSPEND ED 01/04/2026 [id number] 5 SAM BURNETTTEDoyle G 2024 120 [facility] ASPIRIN 81MG TAB,EC TAKE ONE TABLET BY MOUTH ONCE A DAY FOR HEART OR CIRCULAT ION. TAKE WITH FOOD. ORAL DISCONT INUED 04/10/2025 [id number] 5 SAM BURNETTTEDoyle G 2023 120 [facility] ASPIRIN 81MG TAB,EC TAKE ONE TABLET BY MOUTH ONCE A DAY FOR HEART OR CIRCULAT ION. TAKE WITH FOOD. ORAL DISCONT INUED 09/04/2024 [id number] 4 KISHORE BRAVO 2023 120 [facility] ATORVASTATI N CA 40MG TAB TAKE ONE TABLET BY MOUTH ONCE A DAY ORAL DISCONT INUED BY ROD So 12/29/2024 [id number] 5 ISAURO SMITH IN 2023 90 [facility] ATORVASTATI N CA 80MG TAB TAKE ONE-HALF TABLET BY MOUTH EVERY EVENING FOR HIGH CHOLESTE ROL ORAL SUSPEND ED 08/25/2025 [id number] 5 FRANKY NASH W 2024 45 [facility] AZELASTINE HCL 137MCG/SPRA Y INHL,NASAL, 30ML SPRAY 1 PUFF IN EACH NOSTRIL TWICE DAILY NEEDED FOR ALLERGIC RHINITIS . *PRIME BEFORE USE* NASAL ACTIVE 08/25/2025 [id number] 5 FRANKY NASH 2024 1 [facility] AZELASTINE HCL 137MCG/SPRA Y INHL,NASAL, 30ML SPRAY 1 PUFF IN EACH NOSTRIL TWICE DAILY NEEDED FOR ALLERGIC RHINITIS . *PRIME BEFORE USE* NASAL DISCONT INUED 04/10/2025 [id number] 5 SAM BURNETT ISTEL G 2023 1 [facility] AZELASTINE HCL 137MCG/SPRA Y INHL,NASAL, 30ML SPRAY 1 PUFF IN EACH NOSTRIL TWICE DAILY NEEDED FOR ALLERGIC RHINITIS . *PRIME BEFORE USE* NASAL DISCONT INUED 09/04/2024 [id number] 4 KISHORE BRAVO 2023 1 [facility] CALCIUM POLYCARBOPH IL 625MG TAB TAKE TWO TABLETS BY MOUTH ONCE A DAY FOR FIBER ORAL SUSPEND ED 06/29/2025 [id number] 5 SAM BURNETTTEDoyle G 2024 180 [facility] CALCIUM POLYCARBOPH IL 625MG TAB TAKE TWO TABLETS BY MOUTH ONCE A DAY FOR FIBER ORAL DISCONT INUED 09/04/2024 [id number] 4 KISHORE BRAVO 2023 180 [facility] CARVEDILOL 3.125MG TAB TAKE ONE TABLET BY MOUTH TWICE A DAY TAKE WITH FOOD. ORAL ACTIVE 04/03/2025 [id number] 5 SAM BURNETT ISTEL G 2024 180 [place] [facility] CARVEDILOL 3.125MG TAB TAKE ONE TABLET BY MOUTH TWICE A DAY TAKE WITH FOOD. ORAL DISCONT INUED 11/22/2024 [id number] 5 FRANKY NASH 2024 180 [facility] CARVEDILOL 3.125MG TAB TAKE ONE TABLET BY MOUTH TWICE A DAY TAKE WITH FOOD. ORAL DISCONT INUED 09/26/2024 [id number] 4 SAM BURNETT ISTEL G 2023 180 [place] [facility] CARVEDILOL 3.125MG TAB TAKE ONE TABLET BY MOUTH TWICE A DAY TAKE WITH FOOD. ORAL DISCONT INUED 07/08/2024 [id number] 4 SAM BURNETT ISTEL G 2023 180 [facility] CARVEDILOL 3.125MG TAB TAKE ONE TABLET BY MOUTH TWICE A DAY TAKE WITH FOOD. ORAL DISCONT INUED 05/17/2024 [id number] 4 JUAN HDZ 2023 180 [facility] CETIRIZINE HCL 10MG TAB TAKE ONE TABLET BY MOUTH ONCE A DAY FOR ALLERGY SYMPTOMS ORAL SUSPEND ED 10/22/2025 [id number] 5 FRANKY NASH 2024 90 [facility] CLOPIDOGREL BISULFATE 75MG TAB TAKE ONE TABLET BY MOUTH ONCE A DAY ORAL SUSPEND ED 01/04/2026 [id number] 5 SAM BURNETT ISTEL G 2024 90 [place] [facility] CLOPIDOGREL BISULFATE 75MG TAB TAKE ONE TABLET BY MOUTH ONCE A DAY ORAL DISCONT INUED 04/10/2025 [id number] 5 SAM BURNETT ISTEL G 2023 90 [facility] CLOPIDOGREL BISULFATE 75MG TAB TAKE ONE TABLET BY MOUTH ONCE A DAY ORAL DISCONT INUED 03/31/2025 [id number] 4 JUAN HDZ 2023 90 [facility] DIPHENHYDRA MINE HCL 50MG CAP TAKE ONE CAPSULE BY MOUTH FOUR TIMES A DAY FOR VERTIGO *MAY CAUSE DROWSINE SS* ORAL DISCONT INUED BY PROVIDE R 05/15/2025 [id number] 4 FRANKY NASH 2023 360 [facility] DOCUSATE NA 100MG CAP TAKE ONE CAPSULE BY MOUTH THREE TIMES A DAY NEEDED TO SOFTEN STOOL. HOLD FOR LOOSE STOOL/DI ARRHEA. ORAL SUSPEND ED 01/04/2026 [id number] 5 SAM BURNETT G 2024 300 [facility] DOCUSATE NA 100MG CAP TAKE ONE CAPSULE BY MOUTH THREE TIMES A DAY NEEDED TO SOFTEN STOOL. HOLD FOR LOOSE STOOL/DI ARRHEA. ORAL DISCONT INUED 04/10/2025 [id number] 5 SAM BURNETT G 2023 300 [facility] DOCUSATE NA 100MG CAP TAKE ONE CAPSULE BY MOUTH THREE TIMES A DAY NEEDED TO SOFTEN STOOL. HOLD FOR LOOSE STOOL/DI ARRHEA. ORAL DISCONT INUED 05/19/2024 [id number] 4 KISHORE BARVO 2023 300 [facility] EMPAGLIFLOZ IN 25MG TAB TAKE ONE-HALF TABLET BY MOUTH ONCE A DAY FOR DIABETES ORAL DISCONT INUED BY PROVIDE R 02/02/2025 [id number] 4 FRANKY NASH 2023 45 [facility] FLUTICASONE PROPIONATE 50MCG/SPRAY SOLN,NASAL, 16GM INSTILL 2 SPRAYS IN NOSTRIL( S) ONCE A DAY FOR RHINITIS (MUST BE USED DIRECTED FOR MINIMUM OF 21 DAYS TO PROVIDE ADEQUATE BENEFITS ) NASAL SUSPEND ED 01/04/2026 [id number] 5 SAM BURNETT ISTEL G 2024 3 [facility] FLUTICASONE PROPIONATE 50MCG/SPRAY SOLN,NASAL, 16GM INSTILL 2 SPRAYS IN NOSTRIL( S) ONCE A DAY FOR RHINITIS (MUST BE USED DIRECTED FOR MINIMUM OF 21 DAYS TO PROVIDE ADEQUATE BENEFITS ) NASAL DISCONT INUED 04/10/2025 [id number] 5 SAM BURNETT ISTEL G 2023 3 [facility] FLUTICASONE PROPIONATE 50MCG/SPRAY SOLN,NASAL, 16GM INSTILL 2 SPRAYS IN NOSTRIL( S) ONCE A DAY FOR RHINITIS (MUST BE USED DIRECTED FOR MINIMUM OF 21 DAYS TO PROVIDE ADEQUATE BENEFITS ) NASAL DISCONT INUED 09/04/2024 [id number] 4 KISHORE BRAVO 2023 3 [facility] INSULIN SYRINGE 1ML 30G 12MM USE 1 SYRINGE UNDER THE SKIN ONCE A DAY FOR USE WITH INSULIN TO CONTROL BLOOD SUGAR. SUBCUT ANEOUS SUSPEND ED 08/25/2025 [id number] 5 FRANKY NASH 2024 100 [facility] INSULIN SYRINGE 1ML 30G 12MM USE 1 SYRINGE UNDER THE SKIN ONCE A DAY FOR USE WITH INSULIN TO CONTROL BLOOD SUGAR. SUBCUT ANEOUS DISCONT INUED 09/04/2024 [id number] 5 KISHORE BRAVO 2023 100 [facility] INSULIN,ASP ART,HUMAN (EQV-NOVOLO G) 100 UNIT/ML,FLE XPEN,3ML INJECT 10 UNITS UNDER THE SKIN THREE TIMES A DAY BEFORE MEALS FOR BLOOD SUGAR CONTROL. ADMINIST ER 10 MINUTES BEFORE FOOD DIRECTED . REFRIGER ATE UN-OPENE D PENS. DISCARD CARTRIDG E 28 DAYS AFTER OPENING. WILL REPLACE INSULIN REGULAR SUBCUT ANEOUS SUSPEND ED 01/04/2026 [id number] 5 SAM BURNETT ISTEL G 2024 10 [facility] INSULIN,ASP ART,HUMAN (EQV-NOVOLO G) 100 UNIT/ML,FLE XPEN,3ML INJECT 10 UNITS UNDER THE SKIN THREE TIMES A DAY BEFORE MEALS FOR BLOOD SUGAR CONTROL. ADMINIST ER 10 MINUTES BEFORE FOOD DIRECTED . REFRIGER ATE UN-OPENE D PENS. DISCARD CARTRIDG E 28 DAYS AFTER OPENING. WILL REPLACE INSULIN REGULAR SUBCUT ANEOUS DISCONT INUED 06/29/2025 [id number] 5 SAM BURNETT ISTEL G 2023 10 [facility] INSULIN,ASP ART,HUMAN (EQV-NOVOLO G) 100 UNIT/ML,FLE XPEN,3ML INJECT 10 UNITS UNDER THE SKIN THREE TIMES A DAY BEFORE MEALS FOR BLOOD SUGAR CONTROL. ADMINIST ER 10 MINUTES BEFORE FOOD DIRECTED . REFRIGER ATE UN-OPENE D PENS. DISCARD CARTRIDG E 28 DAYS AFTER OPENING. WILL REPLACE INSULIN REGULAR SUBCUT ANEOUS DISCONT INUED 09/04/2024 [id number] 4 KISHORE BRAVO 2023 10 [facility] INSULIN,GLA RGINE,HUMAN 100 UNT/ML INJ INJECT 54 UNITS UNDER THE SKIN ONCE A DAY FOR DIABETES (AT SAME TIME EACH DAY) - (DISCARD ANY UNUSED PORTION 28 DAYS AFTER OPENING) SUBCUT ANEOUS SUSPEND ED 01/04/2026 [id number] 5 SAM BURNETT ISTEL G 2024 5 [facility] INSULIN,GLA RGINE,HUMAN 100 UNT/ML INJ INJECT 54 UNITS UNDER THE SKIN ONCE A DAY FOR DIABETES (AT SAME TIME EACH DAY) - (DISCARD ANY UNUSED PORTION 28 DAYS AFTER OPENING) SUBCUT ANEOUS DISCONT INUED 04/10/2025 [id number] 5 HORTENCIASAM ISTEDoyle G [address] [facility],GLA RGINE-YFGN 100UNIT/ML INJ INJECT 50 UNITS UNDER THE SKIN ONCE A DAY FOR DIABETES (AT SAME TIME EACH DAY) - (DISCARD ANY UNUSED PORTION 28 DAYS AFTER OPENING) SUBCUT ANEOUS DISCONT INUED (EDIT) 09/04/2024 [id number] 4 KISHORE BRAVO 2023 5 [facility] IPRATROPIUM BR 0.03% SOLN,SPRAY, NASAL USE 2 SPRAYS INTO EACH NOSTRIL THREE TIMES A DAY NEEDED FOR ALLERGIE S/NASAL SYMPTOMS . NASAL ACTIVE 08/25/2025 [id number] 5 FRANKY NASH 2024 30 [facility] IPRATROPIUM BR 0.03% SOLN,SPRAY, NASAL USE 2 SPRAYS INTO EACH NOSTRIL THREE TIMES A DAY NEEDED FOR ALLERGIE S/NASAL SYMPTOMS . NASAL DISCONT INUED 09/04/2024 [id number] 5 KISHORE BRAVO [address] [place] [address] [facility] IPRATROPIUM BR 0.06% SOLN,SPRAY, NASAL USE 1 TO 2 SPRAYS INTO EACH NOSTRIL THREE TIMES A DAY NEEDED NASAL DISCONT INUED BY PROVIDE R 08/03/2025 [id number] CAROL RUVALCABA 2024 15 [facility] LORATADINE 10MG TAB TAKE ONE TABLET BY MOUTH ONCE A DAY FOR ALLERGIC RHINITIS ON EMPTY STOMACH ORAL DISCONT INUED BY PROVIDE R 04/10/2025 [id number] 5 SAM BURNETT G [address] [place] [address] [facility] LORATADINE 10MG TAB TAKE ONE TABLET BY MOUTH ONCE A DAY FOR ALLERGIC RHINITIS ON EMPTY STOMACH ORAL DISCONT INUED 09/04/2024 [id number] 4 KISHORE BRAVO [address] [place] [address] [facility] LOSARTAN POTASSIUM 100MG TAB TAKE ONE TABLET BY MOUTH ONCE A DAY TO LOWER BLOOD PRESSURE ORAL SUSPEND ED 06/29/2025 [id number] 5 SAM BURNETT ISTEDoyle G [address] [place] [address] [facility] [place] POTASSIUM 100MG TAB TAKE ONE TABLET BY MOUTH ONCE A DAY TO LOWER BLOOD PRESSURE ORAL DISCONT INUED 09/04/2024 [id number] 4 KISHORE BRAVO [address] [place] [address] [facility] METOPROLOL TARTRATE 50MG TAB TAKE ONE-HALF TABLET BY MOUTH TWICE A DAY FOR HEART/BL OOD PRESSURE . TAKE WITH OR IMMEDIAT JO FOLLOWIN G FOOD. ORAL DISCONT INUED 09/04/2024 [id number] 4 KISHORE BRAVO [address] [place] [address] [facility] MONTELUKAST NA 10MG TAB TAKE ONE TABLET BY MOUTH AT BEDTIME FOR BREATHIN G ORAL SUSPEND ED 01/04/2026 [id number] 5 SAM BURNETT ISTEL G [address] [place] [address] [facility] MONTELUKAST NA 10MG TAB TAKE ONE TABLET BY MOUTH AT BEDTIME FOR BREATHIN G ORAL DISCONT INUED 04/10/2025 [id number] 5 SAM BURNETT ISTEL G [address] [place] [address] [facility] MONTELUKAST NA 10MG TAB TAKE ONE TABLET BY MOUTH AT BEDTIME FOR BREATHIN G ORAL DISCONT INUED 09/04/2024 [id number] 4 KISHORE BRAVO [address] [place] [address] [facility] PANTOPRAZOL E NA 40MG TAB,EC TAKE ONE TABLET BY MOUTH TWICE A DAY FOR GASTROES OPHAGEAL REFLUX DISEASE TAKE 30 MINUTES BEFORE MEAL(S) ORAL SUSPEND ED 01/04/2026 [id number] 5 SAM BURNETT ISTEL G [address] [place] [address] [facility] PANTOPRAZOL E NA 40MG TAB,EC TAKE ONE TABLET BY MOUTH TWICE A DAY FOR GASTROES OPHAGEAL REFLUX DISEASE TAKE 30 MINUTES BEFORE MEAL(S) ORAL DISCONT INUED 04/10/2025 [id number] 5 SAM BURNETT ISTEL G [address] [place] [address] [facility] PANTOPRAZOL E NA 40MG TAB,EC TAKE ONE TABLET BY MOUTH EVERY MORNING BEFORE A MEAL TO LOWER STOMACH ACID - TAKE 30 MINUTES BEFORE MEAL(S) ORAL DISCONT INUED 09/04/2024 [id number] 4 KISHORE BRAVO [address] [place] [address] [facility] PREGABALIN 75MG CAP,ORAL TAKE ONE CAPSULE BY MOUTH EVERY 12 HOURS *MAY CAUSE DROWSINE SS* ORAL DISCONT INUED BY ROD So 04/09/2024 [id number] 4 Saray MARTE 2023 60 [place] [facility] SCOPOLAMINE 0.33MG/24HR S PATCH APPLY 1 PATCH TO SKIN SITE EVERY 72 HOURS NEEDED FOR MOTION SICKNESS TRANSD ERMAL ACTIVE 01/04/2026 [id number] 5 SAM BURNETT ISTEL G [address] [place] [address] [facility] SCOPOLAMINE 0.33MG/24HR S PATCH APPLY 2 PATCHES TO SKIN SITE EVERY 72 HOURS FOR MOTION SICKNESS TRANSD ERMAL DISCONT INUED 08/25/2025 [id number] 5 FRANKY NASH W 2024 10 [facility] SCOPOLAMINE 0.33MG/24HR S PATCH APPLY 2 PATCHES TO SKIN SITE EVERY 72 HOURS FOR MOTION SICKNESS ### TRANSD ERMAL DISCONT INUED 06/17/2025 [id number] 5 SAM BURNETT ISTEL G 2023 60 [facility] SCOPOLAMINE 0.33MG/24HR S PATCH APPLY 1 PATCH TO SKIN SITE EVERY 72 HOURS FOR MOTION SICKNESS TRANSD ERMAL DISCONT INUED 02/20/2025 [id number] 4 SAM BURNETT ISTEL G 2023 30 [facility] SIMVASTATIN 20MG TAB TAKE ONE-HALF TABLET BY MOUTH EVERY EVENING TO LOWER CHOLESTE ROL (REPORT ANY MUSCLE PAIN OR WEAKNESS ) THIS TABLET IS TO BE CUT IN HALF FOR YOUR DOSE ORAL DISCONT INUED 09/04/2024 [id number] 4 KISHORE BRAVO 2023 45 [facility] SUCRALFATE 1GM TAB TAKE ONE TABLET BY MOUTH EVERY 6 HOURS FOR DUODENAL ULCER - TAKE ON AN EMPTY STOMACH. ORAL DISCONT INUED BY ROD R 08/25/2025 [id number] 5 FRANKY NASH Freda 2024 360 [facility] SUCRALFATE 1GM TAB TAKE ONE TABLET BY MOUTH EVERY 6 HOURS FOR DUODENAL ULCER - TAKE ON AN EMPTY STOMACH. ORAL DISCONT INUED 06/29/2025 [id number] 4 SAM BURNETT ISTEL G 2023 360 [facility] SUCRALFATE 500MG/5ML SUSP,ORAL TAKE 10 ML BY MOUTH FOUR TIMES A DAY FOR DUODENAL ULCER - TAKE ON AN EMPTY STOMACH ORAL SUSPEND ED 10/19/2025 [id number] 5 SAM BURNETT ISTEL G 2024 3360 [facility] SUCRALFATE 500MG/5ML SUSP,ORAL TAKE 10 ML BY MOUTH FOUR TIMES A DAY FOR DUODENAL ULCER - TAKE ON AN EMPTY STOMACH ORAL DISCONT INUED (EDIT) 10/01/2025 [id number] 5 SAM BURNETT ISTEL G 2024 420 [facility] TAMSULOSIN HCL 0.4MG CAP TAKE ONE CAPSULE BY MOUTH EVERY EVENING APPROXIM ATELY 30 MINUTES AFTER THE SAME MEAL EACH DAY (FOR PROSTATE ) ORAL ACTIVE 06/29/2025 [id number] 5 SAM BURNETT ISTEL G 2024 90 [facility] TAMSULOSIN HCL 0.4MG CAP TAKE ONE CAPSULE BY MOUTH EVERY EVENING APPROXIM ATELY 30 MINUTES AFTER THE SAME MEAL EACH DAY (FOR PROSTATE ) ORAL DISCONT INUED 09/04/2024 [id number] 4 KISHORE BRAVO 2023 90 [facility] TAMSULOSIN HCL 0.4MG CAP TAKE ONE CAPSULE BY MOUTH EVERY EVENING APPROXIM ATELY 30 MINUTES AFTER THE SAME MEAL EACH DAY (FOR PROSTATE ) ORAL DISCONT INUED 09/04/2024 [id number] 4 KISHORE BRAVO 2023 30 [facility] TERBINAFINE HCL 1% CREAM,TOP APPLY LIGHTLY TO AFFECTED AREA(S) TWICE A DAY FOR FUNGAL SKIN INFECTIO N TOPICA L ACTIVE 08/25/2025 [id number] 5 FRANKY NASH 2024 120 [facility] TERBINAFINE HCL 1% CREAM,TOP APPLY LIGHTLY TO AFFECTED AREA(S) TWICE A DAY FOR FUNGAL SKIN INFECTIO N TOPICA L DISCONT INUED 04/10/2025 [id number] 4 SAM BURNETT ISTEL G 2023 120 [facility] TRIAMCINOLO NE ACETONIDE 0.1% OINT,TOP APPLY LIGHTLY TO AFFECTED AREA(S) TWICE A DAY FOR CONTACT DERMATIT IS TO AREAS OF ITCHY RASH NEEDED. FOR EXTERNAL USE ONLY. TOPICA L ACTIVE 01/04/2026 [id number] 5 SAM BURNETT ISTEL G 2024 80 [place] [facility] TRIAMCINOLO NE ACETONIDE 0.1% OINT,TOP APPLY LIGHTLY TO AFFECTED AREA(S) TWICE A DAY FOR CONTACT DERMATIT IS TO AREAS OF ITCHY RASH NEEDED. FOR EXTERNAL USE ONLY. JUAN MANUELA Doyle DISCONT INUED 04/10/2025 [id number] 5 SAM BURNETT Marialuisa 2023 80 [facility] TRIAMCINOLO NE ACETONIDE 0.1% OINT,TOP APPLY LIGHTLY TO AFFECTED AREA(S) TWICE A DAY FOR CONTACT DERMATIT IS TO AREAS OF ITCHY RASH NEEDED. FOR EXTERNAL USE ONLY. JUAN MANUELA Doyle DISCONT INUED 12/12/2024 [id number] JOANN MIGUEL 2023 80 [facility] [place] Immunizations Combined list of available immunizations from the Department of Defense and Veterans Affairs facilities. Immunization Series Date Given Administered By Site Reaction Lot Number CVX Code Drug Electric [employer]air[employer] Status Comments Source COVID-19 (MODERNA), MRNA, LNP-S, PF, 50 MCG/0.5 ML (AGES 12+ YEARS) 7 2023 MILA BURGER RIGHT DELTO ID [id number] 312 complet ed [facility] INFLUENZA, HIGH-DOSE, TRIVALENT, PF 2023 MILA BURGER LEFT DELTO ID [id number] 135 complet ed [facility] COVID-19 (MODERNA), MRNA, LNP-S, PF, 50 MCG/0.5 ML (AGES 12+ YEARS) 1 2022 FRANCIS MAHER RIGHT DELTO ID [id number] 312 complet ed [facility] INFLUENZA, UNSPECIFIED FORMULATION 2022 88 complet ed HISTORICA L INFORMATI ON - FROM PATIENT'S RECALL, states he had during the clinics drive thru clinc on 04/30/23 [facility] INFLUENZA, HIGH-DOSE, QUADRIVALENT 1 2021 197 complet ed HISTORICA L INFORMATI ON - FROM OTHER REGISTRY, [facility] [facility] COVID-19 (MODERNA), MRNA, LNP-S, BIVALENT, PF, 50 MCG/0.5 ML OR 25MCG/0.25 ML DOSE 4 2021 229 complet ed HISTORICA L INFORMATI ON - FROM OTHER REGISTRY, [facility] TDAP 2021 115 complet ed [facility] COVID-19 (PFIZER), MRNA, LNP-S, PF, 30 MCG/0.3 ML DOSE 3 2021 208 complet ed [facility] INFLUENZA, INJECTABLE, QUADRIVALENT, PRESERVATIVE FREE 2020 150 complet ed [facility] COVID-19 (PFIZER), MRNA, LNP-S, PF, 30 MCG/0.3 ML DOSE 3 2020 208 complet ed HISTORICA L INFORMATI ON - FROM OTHER REGISTRY, [facility] ([facility]), MRNA, LNP-S, PF, 30 MCG/0.3 ML DOSE 2 2020 208 complet ed [facility]), MRNA, LNP-S, PF, 30 MCG/0.3 ML DOSE 1 2020 208 complet ed [facility] INFLUENZA, INJECTABLE, QUADRIVALENT, PRESERVATIVE FREE 2019 150 complet ed [facility] INFLUENZA, INJECTABLE, QUADRIVALENT, PRESERVATIVE FREE 2017 150 complet ed [facility] ZOSTER RECOMBINANT 2 2017 NONE 187 complet ed [facility] ZOSTER RECOMBINANT 1 2017 187 complet ed [facility] INFLUENZA, SEASONAL, INJECTABLE, PRESERVATIVE FREE 2016 140 complet ed Left Deltoid [facility] INFLUENZA, SEASONAL, INJECTABLE, PRESERVATIVE FREE 2015 140 complet ed [facility] INFLUENZA, SEASONAL, INJECTABLE, PRESERVATIVE FREE 2014 140 complet ed [facility] PNEUMOCOCCAL POLYSACCHARID E PPV23 2014 33 complet ed [facility] PNEUMOCOCCAL CONJUGATE PCV 13 2014 133 complet ed [facility] INFLUENZA, SEASONAL, INJECTABLE, PRESERVATIVE FREE 2013 140 complet ed [place] [facility] INFLUENZA, UNSPECIFIED FORMULATION 2012 88 complet ed [facility] TDAP 2011 115 complet ed Right Deltoid [facility] INFLUENZA, UNSPECIFIED FORMULATION 2011 88 complet ed [facility] INFLUENZA, UNSPECIFIED FORMULATION 2010 88 complet ed [place] [facility] INFLUENZA, UNSPECIFIED FORMULATION 2010 88 complet ed [facility] INFLUENZA, UNSPECIFIED FORMULATION 2009 88 complet ed [facility] INFLUENZA, UNSPECIFIED FORMULATION 2008 88 complet ed [place] [facility] PNEUMOCOCCAL, UNSPECIFIED FORMULATION 2007 109 complet ed [employer], Right Deltoid, Lot #:[id number] [place] [facility] INFLUENZA, UNSPECIFIED FORMULATION 2007 88 complet ed [place] [facility] INFLUENZA, UNSPECIFIED FORMULATION 2006 88 complet ed [place] [facility] INFLUENZA, UNSPECIFIED FORMULATION 2005 88 complet ed [place] [facility] INFLUENZA, UNSPECIFIED FORMULATION 2004 88 complet ed [place] [facility] INFLUENZA, UNSPECIFIED FORMULATION 2003 88 complet ed [place] [facility] INFLUENZA, UNSPECIFIED FORMULATION 2002 88 complet ed [place] [facility] INFLUENZA, UNSPECIFIED FORMULATION 2001 88 complet ed [place] [facility] INFLUENZA, UNSPECIFIED FORMULATION 2000 88 complet ed [place] [facility] INFLUENZA, UNSPECIFIED FORMULATION 1999 RAFAEL MARTE 88 complet ed [place] [facility] INFLUENZA, UNSPECIFIED FORMULATION 1998 NICOLE CAMPOS 88 complet ed [place] [facility] Results Combined list of recent chemistry, hematology and other laboratory results from Department of Defense and Veterans Affairs, ranging from 15 months to all on record, depending upon the facility. Order Name Results Value Reference Range Date Interpretation Specimen Comments Source URINALYSI S W/ CX REFLEX (STL-PB) COLOR OF URINE Light Yellow 01/04 Specimen Type: URINE No comment entered. Ordering Provider: PAMELA BURNETT Report Released Date/Time: Dec 30, 2024 11:37 AM Reporting Lab: [place] [facility] [address] [place] [id number] Performing Lab: [place] [facility] [address] [place] [id number] [facility] URINALYSI S W/ CX REFLEX (STL-PB) BILIRUBIN.T OTAL [PRESENCE] IN URINE BY TEST STRIP NEGATIVE mg/dL 01/04 Specimen Type: URINE No comment entered. Ordering Provider: PAMELA BURNETT G Report Released Date/Time: Dec 30, 2024 11:37 AM Reporting Lab: [place] [facility] [address] [place] [address] Performing Lab: [place] [facility] [address] [place] [address] [facility] URINALYSI S W/ CX REFLEX (STL-PB) PH OF URINE BY TEST STRIP 7.5 5.0 - 8.0 01/04 Specimen Type: URINE No comment entered. Ordering Provider: PAMELA BURNETT Report Released Date/Time: Dec 30, 2024 11:37 AM Reporting Lab: [place] [facility] [address] [place] [address] Performing Lab: [place] [facility] [address] [place] [address] [facility] URINALYSI S W/ CX REFLEX (STL-PB) APPEARANCE OF URINE CLEAR 01/04 Specimen Type: URINE No comment entered. Ordering Provider: PAMELA BURNETT Report Released Date/Time: Dec 30, 2024 11:37 AM Reporting Lab: [place] [facility] [address] [place] [address] Performing Lab: [place] [facility] [address] [place] [address] [facility] URINALYSI S W/ CX REFLEX (STL-PB) NITRITE [PRESENCE] IN URINE BY TEST STRIP NEGATIVE mg/dL 01/04 Specimen Type: URINE No comment entered. Ordering Provider: PAMELA BURNETT G Report Released Date/Time: Dec 30, 2024 11:37 AM Reporting Lab: [place] [facility] [address] [place] [address] Performing Lab: [place] [facility] [address] [place] [address] [facility] URINALYSI S W/ CX REFLEX (STL-PB) GLUCOSE [MASS/VOLUM E] IN URINE BY TEST STRIP NORMALmg /dL 01/04 Specimen Type: URINE No comment entered. Ordering Provider: PAMELA BURNETT Report Released Date/Time: Dec 30, 2024 11:37 AM Reporting Lab: [place] [facility] [address] [place] [address] Performing Lab: [place] [facility] [address] [place] [address] [facility] URINALYSI S W/ CX REFLEX (STL-PB) PROTEIN [MASS/VOLUM E] IN URINE BY TEST STRIP NEGATIVE mg/dL 01/04 Specimen Type: URINE No comment entered. Ordering Provider: PAMELA BURNETT Report Released Date/Time: Dec 30, 2024 11:37 AM Reporting Lab: [place] [facility] [address] [place] [address] Performing Lab: [place] [facility] [address] [place] [address] [facility] URINALYSI S W/ CX REFLEX (STL-PB) URN.UROBILI NOGEN NORMALmg /dL 01/04 Specimen Type: URINE No comment entered. Ordering Provider: PAMELA BURNETT Report Released Date/Time: Dec 30, 2024 11:37 AM Reporting Lab: [place] [facility] [address] [place] [address] Performing Lab: [place] [facility] [address] [place] [address] [facility] URINALYSI S W/ CX REFLEX (STL-PB) HEMOGLOBIN [MASS/VOLUM E] IN URINE BY TEST STRIP NEGATIVE mg/dL 01/04 Specimen Type: URINE No comment entered. Ordering Provider: PAMELA BURNETT Report Released Date/Time: Dec 30, 2024 11:37 AM Reporting Lab: [place] [facility] [address] [place] [address] Performing Lab: [place] [facility] [address] [place] [address] [facility] URINALYSI S W/ CX REFLEX (STL-PB) KETONES [MASS/VOLUM E] IN URINE BY TEST STRIP NEGATIVE mg/dL 01/04 Specimen Type: URINE No comment entered. Ordering Provider: PAMELA BURNETT Report Released Date/Time: Dec 30, 2024 11:37 AM Reporting Lab: [place] [facility] [address] [place] [address] Performing Lab: [place] [facility] [address] [place] [address] [facility] URINALYSI S W/ CX REFLEX (STL-PB) URN.LEUK.ES T. NEGATIVE 01/04 Specimen Type: URINE No comment entered. Ordering Provider: PAMELA BURNETT Report Released Date/Time: Dec 30, 2024 11:37 AM Reporting Lab: [place] [facility] [address] [place] [address] Performing Lab: [place] [facility] [address] [place] [address] [facility] URINALYSI S W/ CX REFLEX (STL-PB) SPECIFIC GRAVITY OF URINE 1.010 1.005 - 1.029 01/04 Specimen Type: URINE No comment entered. Ordering Provider: PAMELA BURNETT Report Released Date/Time: Dec 30, 2024 11:37 AM Reporting Lab: [place] [facility] [address] [place] [address] Performing Lab: [place] [facility] [address] [place] [address] [facility] GALACTOSE -ALPHA-1, 3-GALACTO SE IGE GALACTOSE-A LPHA-1,3-GA LACTOSE (ALPHA-GAL) IGE AB [UNITS/VOLU ME] IN SERUM <0.10kU/ L 11/23 Specimen Type: SERUM Comment: REFERENCE RANGE: <0.10 kU/L Results above 0.1 kU/L indicate an allergen-sp ecific IgE sensitizati on to galactose-a -1,3-galact ose, and such patients are at risk for delayed allergic reactions following beef, pork, or mendez consumption . Circulating IgE antibodies may remain undetectabl e despite a convincing clinical history because these antibodies may be directed towards allergens revealed or altered during industrial processing, cooking, or digestion and therefore do not exist in the original food for which the patient is tested. Sometimes individuals diagnosed with chronic urticaria may develop IgE antibodies directed against human thyroglobul in. Such antibodies may cross-react with the bovine thyroglobul in used in ImmunoCAP(R ) Allergen o215, alpha-Gal, leading to a false-posit carina test result. A definitive diagnosis should be based on the evaluation of both clinical and laboratory findings and not on any single diagnostic method. Additional information can be found at [email or web address] Test performed by [employer] [place] [id number] [place] [address] Phone: Nuclear Design Engineer: Carolyne Souza MD,PHD,RUSLAN Test Reported by [facility], [employer] [facility], [address] [place] [address] Jacobo Israel M.D., Ph.D., Director of Laboratorie s , CLIA [id number] Ordering Provider: PAMELA BURNETT Report Released Date/Time: Nov 23, 2024 11:53 AM Reporting Lab: [place] [facility] [address] [place] [address] Performing Lab: [place] [facility] [address] [facility] TSH (MA-PB) THYROTROPIN [UNITS/VOLU ME] IN SERUM OR PLASMA 1.504 u[IU]/mL 0.47 - 5 11/23 Specimen Type: SERUM No comment entered. Ordering Provider: PAMELA BURNETT Report Released Date/Time: Nov 23, 2024 12:00 PM Reporting Lab: [place] [facility] [address] [place] [address] Performing Lab: [place] [facility] [address] [place] [address] [place] [facility] FOOD AND TREE NUT ALLERGY PANEL WHEAT IGE AB [UNITS/VOLU ME] IN SERUM <0.10kU/ L 11/23 Specimen Type: SERUM No comment entered. Ordering Provider: PAMELA BURNETT Report Released Date/Time: Nov 23, 2024 03:18 PM Reporting Lab: [place] [facility] [address] [place] [address] Performing Lab: [place] [facility] [id number] [place] [address] [place] [facility] FOOD AND TREE NUT ALLERGY PANEL DEPRECATED WHEAT IGE AB RAST CLASS [PRESENCE] IN SERUM 0 11/23 Specimen Type: SERUM No comment entered. Ordering Provider: PAMELA BURNETT Report Released Date/Time: Nov 23, 2024 03:18 PM Reporting Lab: [place] [facility] [address] [place] [address] Performing Lab: [place] [address] [place] [facility] FOOD AND TREE NUT ALLERGY PANEL CODFISH IGE AB [UNITS/VOLU ME] IN SERUM <0.10kU/ L 11/23 Specimen Type: SERUM No comment entered. Ordering Provider: PAMELA BURNETT Report Released Date/Time: Nov 23, 2024 03:18 PM Reporting Lab: [place] [facility] [address] [place] [address] Performing Lab: [place] [facility] [id number] [place] [address] [place] [facility] FOOD AND TREE NUT ALLERGY PANEL DEPRECATED CODFISH IGE AB RAST CLASS [PRESENCE] IN SERUM 0 11/23 Specimen Type: SERUM No comment entered. Ordering Provider: PAMELA BURNETT Report Released Date/Time: Nov 23, 2024 03:18 PM Reporting Lab: [place] [facility] [address] [place] [address] Performing Lab: [place] [facility] [id number] [place] [address] [place] [facility] FOOD AND TREE NUT ALLERGY PANEL SOYBEAN IGE AB [UNITS/VOLU ME] IN SERUM <0.10kU/ L 11/23 Specimen Type: SERUM No comment entered. Ordering Provider: PAMELA BURNETT Report Released Date/Time: Nov 23, 2024 03:18 PM Reporting Lab: [place] [facility] [address] [place] [address] Performing Lab: [place] [address] [place] [facility] FOOD AND TREE NUT ALLERGY PANEL DEPRECATED SOYBEAN IGE AB RAST CLASS [PRESENCE] IN SERUM 0 11/23 Specimen Type: SERUM No comment entered. Ordering Provider: PAMELA BURNETT Report Released Date/Time: Nov 23, 2024 03:18 PM Reporting Lab: [place] [facility] [address] [place] [address] Performing Lab: [place] [address] [place] [facility] FOOD AND TREE NUT ALLERGY PANEL SHRIMP IGE AB [UNITS/VOLU ME] IN SERUM <0.10kU/ L 11/23 Specimen Type: SERUM No comment entered. Ordering Provider: PAMELA BURNETT Report Released Date/Time: Nov 23, 2024 03:18 PM Reporting Lab: [place] [facility] [address] [place] [address] Performing Lab: [place] [address] [place] [facility] FOOD AND TREE NUT ALLERGY PANEL DEPRECATED SHRIMP IGE AB RAST CLASS [PRESENCE] IN SERUM 0 11/23 Specimen Type: SERUM No comment entered. Ordering Provider: PAMELA BURNETT Report Released Date/Time: Nov 23, 2024 03:18 PM Reporting Lab: [place] [facility] [address] [place] [address] Performing Lab: [place] [facility] [id number] [place] [address] [place] [facility] FOOD AND TREE NUT ALLERGY PANEL SCALLOP IGE AB [UNITS/VOLU ME] IN SERUM <0.10kU/ L 11/23 Specimen Type: SERUM No comment entered. Ordering Provider: PAMELA BURNETT Report Released Date/Time: Nov 23, 2024 03:18 PM Reporting Lab: [place] [facility] [address] [place] [address] Performing Lab: [place] [facility] [id number] [place] [address] [place] [facility] FOOD AND TREE NUT ALLERGY PANEL DEPRECATED SCALLOP IGE AB RAST CLASS [PRESENCE] IN SERUM 0 11/23 Specimen Type: SERUM No comment entered. Ordering Provider: PAMELA BURNETT Report Released Date/Time: Nov 23, 2024 03:18 PM Reporting Lab: [place] [facility] [address] [place] [address] Performing Lab: [place] [address] [place] [facility] FOOD AND TREE NUT ALLERGY PANEL SESAME SEED IGE AB [UNITS/VOLU ME] IN SERUM <0.10kU/ L 11/23 Specimen Type: SERUM No comment entered. Ordering Provider: PAMELA BURNETT Report Released Date/Time: Nov 23, 2024 03:18 PM Reporting Lab: [place] [facility] [address] [place] [address] Performing Lab: [place] [address] [place] [facility] FOOD AND TREE NUT ALLERGY PANEL DEPRECATED SESAME SEED IGE AB RAST CLASS [PRESENCE] IN SERUM 0 11/23 Specimen Type: SERUM No comment entered. Ordering Provider: PAMELA BURNETT Report Released Date/Time: Nov 23, 2024 03:18 PM Reporting Lab: [place] [facility] [address] [place] [address] Performing Lab: [place] [facility] [id number] [place] [address] [place] [facility] FOOD AND TREE NUT ALLERGY PANEL ALMOND IGE AB [UNITS/VOLU ME] IN SERUM <0.10kU/ L 11/23 Specimen Type: SERUM No comment entered. Ordering Provider: PAMELA BURNETT G Report Released Date/Time: Nov 23, 2024 03:18 PM Reporting Lab: [place] [facility] [address] [place] [address] Performing Lab: [place] [address] [place] [facility] FOOD AND TREE NUT ALLERGY PANEL DEPRECATED ALMOND IGE AB RAST CLASS [PRESENCE] IN SERUM 0 11/23 Specimen Type: SERUM No comment entered. Ordering Provider: PAMELA BURNETT Report Released Date/Time: Nov 23, 2024 03:18 PM Reporting Lab: [place] [facility] [address] [place] [address] Performing Lab: [place] [address] [place] [facility] FOOD AND TREE NUT ALLERGY PANEL SALMON IGE AB [UNITS/VOLU ME] IN SERUM <0.10kU/ L 11/23 Specimen Type: SERUM No comment entered. Ordering Provider: PAMELA BURNETT Report Released Date/Time: Nov 23, 2024 03:18 PM Reporting Lab: [place] [facility] [address] [place] [address] Performing Lab: [place] [address] [place] [facility] FOOD AND TREE NUT ALLERGY PANEL DEPRECATED SALMON IGE AB RAST CLASS [PRESENCE] IN SERUM 0 11/23 Specimen Type: SERUM No comment entered. Ordering Provider: PAMELA BURNETT Report Released Date/Time: Nov 23, 2024 03:18 PM Reporting Lab: [place] [facility] [address] [place] [address] Performing Lab: [place] [address] [place] [facility] FOOD AND TREE NUT ALLERGY PANEL TUNA IGE AB [UNITS/VOLU ME] IN SERUM <0.10kU/ L 11/23 Specimen Type: SERUM No comment entered. Ordering Provider: PAMELA BURNETT Report Released Date/Time: Nov 23, 2024 03:18 PM Reporting Lab: [place] [facility] [address] [place] [address] Performing Lab: [place] [facility] [address] [facility] [place] [facility] FOOD AND TREE NUT ALLERGY PANEL DEPRECATED TUNA IGE AB RAST CLASS [PRESENCE] IN SERUM 0 11/23 Specimen Type: SERUM No comment entered. Ordering Provider: PAMELA BURNETT G Report Released Date/Time: Nov 23, 2024 03:18 PM Reporting Lab: [place] [facility] [address] [place] [address] Performing Lab: [place] [facility] [id number] [place] [address] [place] [facility] FOOD AND TREE NUT ALLERGY PANEL [place] IGE AB [UNITS/VOLU ME] IN SERUM <0.10kU/ L 11/23 Specimen Type: SERUM No comment entered. Ordering Provider: PAMELA BURNETT Report Released Date/Time: Nov 23, 2024 03:18 PM Reporting Lab: [place] [facility] [address] [place] [address] Performing Lab: [place] [address] [place] [facility] FOOD AND TREE NUT ALLERGY PANEL DEPRECATED [place] IGE AB RAST CLASS [PRESENCE] IN SERUM 0 11/23 Specimen Type: SERUM No comment entered. Ordering Provider: PAMELA BURNETT G Report Released Date/Time: Nov 23, 2024 03:18 PM Reporting Lab: [place] [facility] [address] [place] [address] Performing Lab: [place] [facility] [id number] [place] [address] [place] [facility] FOOD AND TREE NUT ALLERGY PANEL EGG WHITE IGE AB [UNITS/VOLU ME] IN SERUM <0.10kU/ L 11/23 Specimen Type: SERUM No comment entered. Ordering Provider: PAMELA BURNETT G Report Released Date/Time: Nov 23, 2024 03:18 PM Reporting Lab: [place] [facility] [address] [place] [address] Performing Lab: [place] [facility] [id number] [place] [address] [place] [facility] FOOD AND TREE NUT ALLERGY PANEL DEPRECATED EGG WHITE IGE AB RAST CLASS [PRESENCE] IN SERUM 0 11/23 Specimen Type: SERUM No comment entered. Ordering Provider: PAMELA BURNETT Report Released Date/Time: Nov 23, 2024 03:18 PM Reporting Lab: [place] [facility] [address] [place] [address] Performing Lab: [place] [address] [place] [facility] FOOD AND TREE NUT ALLERGY PANEL PEANUT IGE AB [UNITS/VOLU ME] IN SERUM <0.10kU/ L 11/23 Specimen Type: SERUM No comment entered. Ordering Provider: PAMELA BURNETT Report Released Date/Time: Nov 23, 2024 03:18 PM Reporting Lab: [place] [facility] [address] [place] [address] Performing Lab: [place] [address] [place] [facility] FOOD AND TREE NUT ALLERGY PANEL DEPRECATED PEANUT IGE AB RAST CLASS [PRESENCE] IN SERUM 0 11/23 Specimen Type: SERUM No comment entered. Ordering Provider: PAMELA BURNETT Report Released Date/Time: Nov 23, 2024 03:18 PM Reporting Lab: [place] [facility] [address] [place] [address] Performing Lab: [place] [address] [place] [facility] FOOD AND TREE NUT ALLERGY PANEL [place] IGE AB [UNITS/VOLU ME] IN SERUM <0.10kU/ L 11/23 Specimen Type: SERUM No comment entered. Ordering Provider: PAMELA BURNETT Report Released Date/Time: Nov 23, 2024 03:18 PM Reporting Lab: [place] [facility] [address] [place] [address] Performing Lab: [place] [address] [place] [facility] FOOD AND TREE NUT ALLERGY PANEL DEPRECATED [place] IGE AB RAST CLASS [PRESENCE] IN SERUM 0 11/23 Specimen Type: SERUM No comment entered. Ordering Provider: PAMELA BURNETT Report Released Date/Time: Nov 23, 2024 03:18 PM Reporting Lab: [place] [facility] [address] [place] [address] Performing Lab: [place] [address] [place] [facility] FOOD AND TREE NUT ALLERGY PANEL COW MILK IGG AB [UNITS/VOLU ME] IN SERUM <0.10kU/ L 11/23 Specimen Type: SERUM No comment entered. Ordering Provider: PAMELA BURNETT Report Released Date/Time: Nov 23, 2024 03:18 PM Reporting Lab: [place] [facility] [address] [place] [address] Performing Lab: [place] [address] [place] [facility] FOOD AND TREE NUT ALLERGY PANEL DEPRECATED COW MILK IGG AB RAST CLASS [PRESENCE] IN SERUM 0 11/23 Specimen Type: SERUM No comment entered. Ordering Provider: PAMELA BURNETT Report Released Date/Time: Nov 23, 2024 03:18 PM Reporting Lab: [place] [facility] [facility] [address] [place] [address] Performing Lab: [place] [address] [place] [facility] FOOD AND TREE NUT ALLERGY PANEL HAZELNUT IGE AB [UNITS/VOLU ME] IN SERUM <0.10kU/ L 11/23 Specimen Type: SERUM No comment entered. Ordering Provider: PAMELA BURNETT Report Released Date/Time: Nov 23, 2024 03:18 PM Reporting Lab: [place] [facility] [address] [place] [address] Performing Lab: [place] [facility] [id number] [place] [address] [place] [facility] FOOD AND TREE NUT ALLERGY PANEL DEPRECATED HAZELNUT IGE AB RAST CLASS [PRESENCE] IN SERUM 0 11/23 Specimen Type: SERUM No comment entered. Ordering Provider: PAMELA BURNETT G Report Released Date/Time: Nov 23, 2024 03:18 PM Reporting Lab: [place] [facility] [address] [place] [address] Performing Lab: [place] [address] [place] [facility] FOOD AND TREE NUT ALLERGY PANEL CASHEW NUT IGE AB [UNITS/VOLU ME] IN SERUM <0.10kU/ L 11/23 Specimen Type: SERUM No comment entered. Ordering Provider: PAMELA BURNETT Report Released Date/Time: Nov 23, 2024 03:18 PM Reporting Lab: [place] [facility] [address] [place] [address] Performing Lab: [place] [address] [place] [facility] FOOD AND TREE NUT ALLERGY PANEL DEPRECATED CASHEW NUT IGE AB RAST CLASS [PRESENCE] IN SERUM 0 11/23 Specimen Type: SERUM No comment entered. Ordering Provider: PAMELA BURNETT Report Released Date/Time: Nov 23, 2024 03:18 PM Reporting Lab: [place] [facility] [address] [place] [address] Performing Lab: [place] [address] [place] [facility] FOOD AND TREE NUT ALLERGY PANEL BRAZIL NUT IGE AB [UNITS/VOLU ME] IN SERUM <0.10kU/ L 11/23 Specimen Type: SERUM No comment entered. Ordering Provider: PAMELA BURNETT G Report Released Date/Time: Nov 23, 2024 03:18 PM Reporting Lab: [place] [facility] [address] [place] [address] Performing Lab: [place] [address] [place] [facility] FOOD AND TREE NUT ALLERGY PANEL DEPRECATED BRAZIL NUT IGE AB RAST CLASS [PRESENCE] IN SERUM 0 11/23 Specimen Type: SERUM No comment entered. Ordering Provider: PAMELA BURNETT G Report Released Date/Time: Nov 23, 2024 03:18 PM Reporting Lab: [place] [facility] [address] [place] [address] Performing Lab: [place] [facility] [address] [facility] [place] [facility] URINALYSI S W/ CX REFLEX (STL-PB) COLOR OF URINE Light Yellow 11/10 Specimen Type: URINE No comment entered. Ordering Provider: PAMELA BURNETT Report Released Date/Time: Nov 10, 2024 02:53 PM Reporting Lab: [place] [facility] [address] [place] [address] Performing Lab: [place] [facility] [address] [place] [address] [facility] URINALYSI S W/ CX REFLEX (STL-PB) BILIRUBIN.T OTAL [PRESENCE] IN URINE BY TEST STRIP NEGATIVE mg/dL 11/10 Specimen Type: URINE No comment entered. Ordering Provider: PAMELA BURNETT Report Released Date/Time: Nov 10, 2024 02:53 PM Reporting Lab: [place] [facility] [address] [place] [address] Performing Lab: [place] [facility] [address] [place] [phone] [facility] URINALYSI S W/ CX REFLEX (STL-PB) PH OF URINE BY TEST STRIP 7.0 5.0 - 8.0 11/10 Specimen Type: URINE No comment entered. Ordering Provider: PAMELA BURNETT Report Released Date/Time: Nov 10, 2024 02:53 PM Reporting Lab: [place] [facility] [address] [place] [address] Performing Lab: [place] [facility] [address] [place] [phone] [facility] URINALYSI S W/ CX REFLEX (STL-PB) APPEARANCE OF URINE CLEAR 11/10 Specimen Type: URINE No comment entered. Ordering Provider: PAMELA BURNETT Report Released Date/Time: Nov 10, 2024 02:53 PM Reporting Lab: [place] [facility] [address] [place] [phone] Performing Lab: [place] [facility] [address] [place] [phone] [facility] URINALYSI S W/ CX REFLEX (STL-PB) NITRITE [PRESENCE] IN URINE BY TEST STRIP NEGATIVE mg/dL 11/10 Specimen Type: URINE No comment entered. Ordering Provider: PAMELA BURNETT Report Released Date/Time: Nov 10, 2024 02:53 PM Reporting Lab: [place] [facility] [address] [place] [address] Performing Lab: [place] [facility] [address] [place] [address] [facility] URINALYSI S W/ CX REFLEX (STL-PB) GLUCOSE [MASS/VOLUM E] IN URINE BY TEST STRIP NORMALmg /dL 11/10 Specimen Type: URINE No comment entered. Ordering Provider: PAMELA BURNETT Report Released Date/Time: Nov 10, 2024 02:53 PM Reporting Lab: [place] [facility] [address] [place] [address] Performing Lab: [place] [facility] [address] [place] [address] [facility] URINALYSI S W/ CX REFLEX (STL-PB) PROTEIN [MASS/VOLUM E] IN URINE BY TEST STRIP NEGATIVE mg/dL 11/10 Specimen Type: URINE No comment entered. Ordering Provider: PAMELA BURNETT Report Released Date/Time: Nov 10, 2024 02:53 PM Reporting Lab: [place] [facility] [address] [place] [address] Performing Lab: [place] [facility] [address] [place] [address] [facility] URINALYSI S W/ CX REFLEX (STL-PB) URN.UROBILI NOGEN NORMALmg /dL 11/10 Specimen Type: URINE No comment entered. Ordering Provider: PAMELA BURNETT Report Released Date/Time: Nov 10, 2024 02:53 PM Reporting Lab: [place] [facility] [address] [place] [address] Performing Lab: [place] [facility] [address] [place] [address] [facility] URINALYSI S W/ CX REFLEX (STL-PB) HEMOGLOBIN [MASS/VOLUM E] IN URINE BY TEST STRIP NEGATIVE mg/dL 11/10 Specimen Type: URINE No comment entered. Ordering Provider: PAMELA BURNETT Report Released Date/Time: Nov 10, 2024 02:53 PM Reporting Lab: [place] [facility] [address] [place] [address] Performing Lab: [place] [facility] [address] [place] [address] [facility] URINALYSI S W/ CX REFLEX (STL-PB) KETONES [MASS/VOLUM E] IN URINE BY TEST STRIP NEGATIVE mg/dL 11/10 Specimen Type: URINE No comment entered. Ordering Provider: PAMELA BURNETT Report Released Date/Time: Nov 10, 2024 02:53 PM Reporting Lab: [place] [facility] [address] [place] [address] Performing Lab: [place] [facility] [address] [place] [address] [facility] URINALYSI S W/ CX REFLEX (STL-PB) URN.LEUK.ES T. NEGATIVE 11/10 Specimen Type: URINE No comment entered. Ordering Provider: PAMELA BURNETT Report Released Date/Time: Nov 10, 2024 02:53 PM Reporting Lab: [place] [facility] [address] [place] [address] Performing Lab: [place] [facility] [address] [place] [address] [facility] URINALYSI S W/ CX REFLEX (STL-PB) SPECIFIC GRAVITY OF URINE 1.013 1.005 - 1.029 11/10 Specimen Type: URINE No comment entered. Ordering Provider: PAMELA BURNETT Report Released Date/Time: Nov 10, 2024 02:53 PM Reporting Lab: [place] [facility] [address] [place] [address] Performing Lab: [place] [facility] [address] [place] [address] [facility] DIRECT LDL (MA-PB) CHOLESTEROL IN LDL [MASS/VOLUM E] IN SERUM OR PLASMA BY DIRECT ASSAY 46.3 mg/dL 0 - 99.9 10/11 Specimen Type: PLASMA No comment entered. Ordering Provider: PAT NASH W Report Released Date/Time: Oct 05, 2024 12:32 PM Reporting Lab: [place] [facility] [address] [place] [address] Performing Lab: [place] [facility] [address] [place] [phone] [facility] IRON IRON [MASS/VOLUM E] IN SERUM OR PLASMA 78 ug/dL 65 - 175 10/11 Specimen Type: PLASMA No comment entered. Ordering Provider: PAT NASH W Report Released Date/Time: Oct 05, 2024 12:32 PM Reporting Lab: [place] [facility] [address] [place] [address] Performing Lab: [place] [facility] [address] [place] [address] [facility] CHOLESTER OL PANEL (PB) CHOLESTEROL [MASS/VOLUM E] IN SERUM OR PLASMA 103 mg/dL 0 - 200 10/11 Specimen Type: PLASMA No comment entered. Ordering Provider: PAT NASH W Report Released Date/Time: Oct 05, 2024 12:32 PM Reporting Lab: [place] [facility] [address] [place] [address] Performing Lab: [place] [facility] [address] [place] [address] [facility] CHOLESTER OL PANEL (PB) TRIGLYCERID E [MASS/VOLUM E] IN SERUM OR PLASMA 44 mg/dL 0 - 150 10/11 Specimen Type: PLASMA No comment entered. Ordering Provider: PAT NASH W Report Released Date/Time: Oct 05, 2024 12:32 PM Reporting Lab: [place] [facility] [address] [place] [address] Performing Lab: [place] [facility] [address] [place] [address] [facility] CHOLESTER OL PANEL (PB) CHOLESTEROL IN LDL [MASS/VOLUM E] IN SERUM OR PLASMA BY CALCULATION 44.6 mg/dL 10/11 Specimen Type: PLASMA No comment entered. Ordering Provider: PAT NASH W Report Released Date/Time: Oct 05, 2024 12:32 PM Reporting Lab: [place] [facility] [address] [place] [address] Performing Lab: [place] [facility] [address] [place] [address] [facility] CHOLESTER OL PANEL (PB) CHOLESTEROL IN HDL [MASS/VOLUM E] IN SERUM OR PLASMA 49.6 mg/dL 40 10/11 H Specimen Type: PLASMA No comment entered. Ordering Provider: PAT NASH W Report Released Date/Time: Oct 05, 2024 12:32 PM Reporting Lab: [place] [facility] [address] [place] [address] Performing Lab: [place] [facility] [address] [place] [address] [facility] CHOLESTER OL PANEL (PB) CHOLESTEROL IN HDL/CHOLEST DONATO.TOTAL [MASS RATIO] IN SERUM OR PLASMA 48.2 25 10/11 Specimen Type: PLASMA No comment entered. Ordering Provider: PAT NASH W Report Released Date/Time: Oct 05, 2024 12:32 PM Reporting Lab: [place] [facility] [address] [place] [address] Performing Lab: [place] [facility] [address] [place] [address] [facility] VITAMIN D, 25-HYDROX Y 25-HYDROXYV ITAMIN D3 [MASS/VOLUM E] IN SERUM OR PLASMA 65.8 ng/mL 30 - 96 10/11 Specimen Type: SERUM No comment entered. Ordering Provider: PAT NASH W Report Released Date/Time: Oct 05, 2024 12:32 PM Reporting Lab: [place] [facility] [address] [place] [address] Performing Lab: [place] [facility] [address] [place] [address] [place] [facility] MAGNESIUM MAGNESIUM [MASS/VOLUM E] IN SERUM OR PLASMA 2.00 mg/dL 1.6 - 2.6 10/11 Specimen Type: PLASMA No comment entered. Ordering Provider: PAT NASH Report Released Date/Time: Oct 05, 2024 12:32 PM Reporting Lab: [place] [facility] [address] [place] [address] Performing Lab: [place] [facility] [address] [place] [address] [facility] Vital Signs Combined list of inpatient and outpatient Vital Signs from Department of Defense and Veterans Affairs, ranging from 12 months to all on record, depending upon the facility. Vital Sign Value Date Comments Source SYSTOLIC BLOOD PRESSURE 135 01/19/2025 10:20:00 [facility] DIASTOLIC BLOOD PRESSURE 71 01/19/2025 10:20:00 [facility] PULSE OXIMETRY 98 % 01/19/2025 10:20:00 [facility] WEIGHT 168.9 01/19/2025 10:20:00 [facility] BMI 24 kg/m2 01/19/2025 10:20:00 [facility] PULSE 69 01/19/2025 10:20:00 [facility] RESPIRATION 18 01/19/2025 10:20:00 [facility] SYSTOLIC BLOOD PRESSURE 103 01/17/2025 12:48:49 [facility] DIASTOLIC BLOOD PRESSURE 58 01/17/2025 12:48:49 [facility] PULSE OXIMETRY 97 % 01/17/2025 12:48:49 [facility] TEMPERATURE 98 01/17/2025 12:48:49 [facility] PULSE 87 01/17/2025 12:48:49 [facility] RESPIRATION 18 01/17/2025 12:48:49 [facility] SYSTOLIC BLOOD PRESSURE 154 01/04/2025 12:17:00 [place] [facility] DIASTOLIC BLOOD PRESSURE 65 01/04/2025 12:17:00 [place] [facility] TEMPERATURE 97.9 01/04/2025 12:17:00 [place] [facility] PULSE 72 01/04/2025 12:17:00 [place] [facility] SYSTOLIC BLOOD PRESSURE 135 11/23/2024 11:39:00 [place] [facility] DIASTOLIC BLOOD PRESSURE 72 11/23/2024 11:39:00 [place] [facility] PULSE OXIMETRY 96 11/23/2024 11:39:00 [place] [facility] WEIGHT 173.1 11/23/2024 11:39:00 [place] [facility] BMI 25 kg/m2 11/23/2024 11:39:00 [place] [facility] PAIN 0 11/23/2024 11:39:00 [place] [facility] TEMPERATURE 98.1 11/23/2024 11:39:00 [place] [facility] PULSE 69 11/23/2024 11:39:00 [place] [facility] RESPIRATION 18 11/23/2024 11:39:00 [place] [facility] SYSTOLIC BLOOD PRESSURE 152 09/30/2024 10:43:00 [place] [facility] DIASTOLIC BLOOD PRESSURE 61 09/30/2024 10:43:00 [place] [facility] PULSE OXIMETRY 97 09/30/2024 10:43:00 [place] [facility] WEIGHT 176.1 09/30/2024 10:43:00 [place] [facility] BMI 25 kg/m2 09/30/2024 10:43:00 [place] [facility] PAIN 0 09/30/2024 10:43:00 [place] [facility] TEMPERATURE 97.7 09/30/2024 10:43:00 [place] [facility] PULSE 80 09/30/2024 10:43:00 [place] [facility] RESPIRATION 20 09/30/2024 10:43:00 [place] [facility] Encounters Combined list of: 1) Encounters from Department of Veterans Affairs facilities going backup to the last 18 months, not all VA inpatient encounters are included; 2) Encounters from the Department of Defense facilities going backup to 280 months. Location Location Details Encounter Type Encounter Number Reason For Visit Attending Provider ADM Date DC Date Status Disposition Source [facility] Outpatient Encounter [id number] 07/24 [facility] Outpatient Encounter [id number] 07/24 [facility] Outpatient Encounter [id number] 08/07 [facility] Outpatient Encounter [id number] 08/15 [facility] Outpatient Encounter [id number] 08/26 [facility] MTMS BY PHARM ADDL 15 MIN [id number] Diagnos is: ICD-10- CM E11.40 Type 2 diabete s mellitu s with diabeti c neuropa thy, unsp Lamine ANSH W 08/27 [facility] Outpatient Encounter [id number] 08/28 [facility] Outpatient Encounter [id number] 09/01 [facility] Outpatient Encounter [id number] 09/04 [facility] Outpatient Encounter [id number] 09/10 [facility] Outpatient Encounter [id number] 09/19 [facility] [place] [facility] Outpatient Encounter [id number] 09/22 [facility] MTMS BY PHARM ADDL 15 MIN [id number] Diagnos is: ICD-10- CM E11.40 Type 2 diabete s mellitu s with diabeti c neuropa thy, unsp Lamine NASH SEEMA W 09/25 [facility] Outpatient Encounter [id number] 09/25 [facility] En[facility] [id number] 09/28 [facility] Outpatient Encounter [id number] 09/28 [facility] Outpatient Encounter [id number] 10/07 [facility] Outpatient Encounter [id number] 10/08 [facility] Outpatient Encounter [id number] 10/12 [facility] Outpatient Encounter [id number] 10/[address] [facility] En[facility] [id number] 10/[facility] Encounter [id number] 10/[address] [facility] Encounter [id number] ABIGAIL GARCIA A 10/21 [facility] Outpatient Encounter [id number] Diagnos is: ICD-10- CM E11.40 Type 2 diabete s mellitu s with diabeti c neuropa thy, unsp Lamine NASH SEEMA W 10/21 [facility] QNHP OL DIG ASSMT&MGMT 5-10 [id number] Diagnos is: ICD-10- CM E11.40 Type 2 diabete s mellitu s with diabeti c neuropa thy, unsp SANDY BHANDARI V 10/[address] [facility] Out[facility] Encounter [id number] 10/26 [facility] Outpatient Encounter [id number] 10/29 [facility] Outpatient Encounter [id number] 10/30 [facility] Outpatient Encounter [id number] 11/11 [facility] Outpatient Encounter [id number] 11/11 [facility] Outpatient Encounter [id number] 11/23 [facility] Outpatient Encounter [id number] 11/23 [facility] Outpatient Encounter [id number] 11/24 [facility] Outpatient Encounter [id number] 11/25 [facility] HC PRO PHONE CALL 5-10 MIN [id number] Diagnos is: ICD-10- CM 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 MANDA Yuan 11/27 [facility] EMR DPT VST MAYX REQ PHY/QHP [id number] Diagnos is: ICD-10- CM E11.9 Type 2 diabete s mellitu s without complic ations Garth MIRANDA ARGARET A 11/27 [facility] EST MAY X REQ PHY/QHP [id number] Diagnos is: ICD-10- CM L98.9 Disorde r of the skin and subcuta neous tissue, unspeci LOPEZ Mosqueda R 12[facility] LOW 20 MIN [id number] Diagnos is: ICD-10- CM L72.3 Sebaceo us cyst ULICES BURNETT G 12[facility] EST MAY X REQ PHY/QHP [id number] Diagnos is: ICD-10- CM Z48.01 Encount er for change or removal of surgica l wound dressABIGAIL Sevilla A 12/08 [facility] Outpatient Encounter [id number] 12/11 [facility] Outpatient Encounter [id number] ULICES LOPEZ N 12/27 [facility] N [facility] Outpatient Encounter [id number] MAC MAHER R 12/28 [facility] Outpatient Encounter [id number] 12/30 [facility] Outpatient Encounter [id number] 12/31 [facility] [id number] 12/31 [facility] Outpatient Encounter [id number] 01/05 [facility] OFFICE O/P EST MOD 30 MIN [id number] Diagnos is: ICD-10- CM I21.4 Non-ST elevati on (NSTEMI ) myocard ial infarct ULICES Laurent G 01/07 [facility] Outpatient Encounter [id number] 01/11 [facility] Outpatient Encounter [id number] 01/12 [facility] Outpatient Encounter [id number] [id number] 01/13 [facility] Outpatient Encounter [id number] 01/26 [facility] Outpatient Encounter [id number] 01/27 [facility] OFFICE O/P EST MOD 30 MIN [id number] Diagnos is: ICD-10- CM Z00.00 Encntr for general adult medical exam w/o abnorma l finding s ULICES BURNETT G [facility] MIN [id number] Diagnos is: ICD-10- CM E11.40 Type 2 diabete s mellitu s with diabeti c neuropa thy, unsp Lamine NASH SEEMA W 02/01 [facility] Outpatient Encounter [id number] 02/05 [facility] OFFICE O/P EST MOD 30 MIN [id number] Diagnos is: ICD-10- CM I10 Essenti al (primar y) hyperte nsion ULICES BURNETT G 02/08 [facility] Outpatient Encounter [id number] [id number] 02/08 [facility] Outpatient Encounter [id number] [id number] 02/11 [facility] Outpatient Encounter [id number] [id number] 4 02/17 [facility] PT EVAL HIGH COMPLEX 45 MIN [id number] [id number] Diagnos is: ICD-10- CM R42 Dizzine ss and giddine ss ANGELLA ALLISON A 02/19 [facility] Outpatient Encounter [id number] [id number] ABIGAIL GARCIA A 03/08 [facility] Outpatient Encounter [id number] [id number] KELLY HERR JOHN L 03/10 [facility] Outpatient Encounter [id number] [id number] ABIGAIL GARCIA A 03/10 [facility] Outpatient Encounter [id number] [id number] 03/10 [facility] OL DIG ASSMT&MGMT 5-10 31695-6.65 [id number] Diagnos is: ICD-10- CM E11.40 Type 2 diabete s mellitu s with diabeti c neuropa thy, unsp ELISABET,SANDY V 03/10 [facility] Outpatient Encounter [id number] [id number] 2 03/12 [facility] Outpatient Encounter 53077-2.65 [id number] 2 03/16 [facility] Outpatient Encounter [id number] [id number] 03/18 [facility] Outpatient Encounter [id number] [id number] 03/23 [facility] Outpatient Encounter [id number] [id number] 2 03/25 [facility] Outpatient Encounter 40858-6.65 [id number] 1 03/30 [facility] Outpatient Encounter [id number] [id number] 8 04/01 [facility] Outpatient Encounter [id number] 04/02 [facility] OFFICE O/P EST MOD 30 MIN [id number] Diagnos is: ICD-10- CM K21.9 Gastro- esophag eal reflux disease without esophag itis ULICES BURNETT G 04/09 [facility] Outpatient Encounter [id number] 04/14 [facility] Outpatient Encounter [id number] [id number] ABIGAIL GARCIA A 04/15 [facility] Outpatient Encounter [id number] [id number] 04/16 [facility] Outpatient Encounter [id number] [id number] 04/19 [facility] Outpatient Encounter [id number] 04/20 [facility] Outpatient Encounter [id number] [id number] 04/22 [facility] Outpatient Encounter [id number] [id number] 04/22 [facility] Outpatient Encounter [id number] [id number] 04/26 [facility] OFF/OP EST MAY X REQ PHY/QHP [id number] Diagnos is: ICD-10- CM Z23 Encount er for immuniz ation KENNEY BURGER GAUTAM D 04/27 [facility] Outpatient Encounter [id number] [id number] 04/28 [facility] MTMS BY PHARM ADDL 15 MIN [id number] [id number] Diagnos is: ICD-10- CM E11.40 Type 2 diabete s mellitu s with diabeti c neuropa thy, unsp Lamine NASH W 05/14 [facility] Outpatient Encounter [id number] [id number] 05/24 [facility] Outpatient Encounter [id number] [id number] 05/26 [facility] Outpatient Encounter [id number] [id number] 06/10 [facility] Outpatient Encounter [id number] [id number] 06/11 [facility] OFF/OP EST MAY X REQ PHY/QHP [id number] Diagnos is: ICD-10- CM K21.9 Gastro- esophag eal reflux disease without esophag itis KENNEY BURGER GAUTAM D 06/28 [facility] O/P EST MOD 30 MIN [id number] Diagnos is: ICD-10- CM K21.9 Gastro- esophag eal reflux disease without esophag itis ULICES BURNETT G 06/28 [facility] QNHP OL DIG ASSMT&MGMT 5-10 [id number] [id number] Diagnos is: ICD-10- CM K21.9 Gastro- esophag eal reflux disease without esophag itis ELISABETSANDY V 06/28 [facility] Outpatient Encounter [id number] [id number] KELLY HERR RIL L 06/28 [facility] Outpatient Encounter [id number] [id number] 06/30 [facility] Outpatient Encounter [id number] [id number] 07/19 [facility] Outpatient Encounter [id number] [id number] 07/23 [facility] Outpatient Encounter [id number] [id number] 07/23 [facility] Outpatient Encounter [id number] [id number] 08/19 [facility] Outpatient Encounter [id number] [id number] 08/23 [facility] Outpatient Encounter [id number] [id number] 08/23 [facility] Outpatient Encounter [id number] [id number] Lamine WILLIAM 08/23 [facility] Outpatient Encounter [id number] [id number] Lamine WILLIAM 09/01 [facility] Outpatient Encounter [id number] [id number] 1 09/01 [facility] Outpatient Encounter [id number] [id number] 09/03 [facility] Outpatient Encounter [id number] [id number] 09/08 [facility] Outpatient Encounter [id number] [id number] 09/09 [facility] Outpatient Encounter [id number] [id number] KENNEY BURGER 09/11 [facility] OFFICE O/P EST MOD 30 MIN [id number] Diagnos is: ICD-10- CM K21.9 Gastro- esophag eal reflux disease without esophag itis ULICES BURNETT 09/30 [facility] AD[facility] 15 MIN [id number] [id number] Diagnos is: ICD-10- CM E11.40 Type 2 diabete s mellitu s with diabeti c neuropa thy, unsp SAAD,J SEEMA W 10/01 [facility] 15 MIN [id number] Diagnos is: ICD-10- CM E11.40 Type 2 diabete s mellitu s with diabeti c neuropa thy, unsp SAAD,J SEEMA W 10/05 [facility] Outpatient Encounter [id number] KENNEY BURGER D 10/18 [facility] Outpatient Encounter [id number] [id number] 10/21 [facility] MTMS BY PHARM ADDL 15 MIN [id number] Diagnos is: ICD-10- CM E11.40 Type 2 diabete s mellitu s with diabeti c neuropa thy, unsp Lamine NASH W 10/21 [facility] Outpatient Encounter [id number] [id number] 10/21 [facility] Outpatient Encounter [id number] [id number] 10/21 [facility] Out[facility] Encounter [id number] [id number] 10/26 [facility] Outpatient Encounter [id number] [id number] 11/02 [facility] Outpatient Encounter [id number] [id number] 11/03 [facility] Outpatient Encounter [id number] [id number] 11/10 [facility] Outpatient Encounter [id number] [id number] 11/10 [facility] Outpatient Encounter [id number] [id number] 11/10 [facility] OFFICE O/P EST MOD 30 MIN [id number] Diagnos is: ICD-10- CM J30.9 Allergi c rhiniti s, unspeci jann RUIZONULICES 11/23 [facility] Encounter [id number] [id number] 11/26 [facility] Outpatient Encounter [id number] [id number] 11/29 [facility] Outpatient Encounter [id number] [id number] ERA HUGHES A 11/30 [facility] Outpatient Encounter [id number] [id number] 12/01 [facility] Outpatient Encounter [id number] [id number] 12/03 [facility] Outpatient Encounter [id number] [id number] 12/06 [facility] Outpatient Encounter [id number] [id number] 12/06 [facility] Outpatient Encounter [id number] [id number] 12/07 [facility] Outpatient Encounter [id number] [id number] 12/08 [facility] Outpatient Encounter [id number] [id number] 12/29 [facility] Outpatient Encounter [id number] [id number] 12/29 [facility] Outpatient Encounter [id number] [id number] 01/03 [facility] Outpatient Encounter [id number] [id number] 01/03 [facility] OFF/OP EST MAY X REQ PHY/QHP [id number] Diagnos is: ICD-10- CM Z01.31 Encount er for exam of blood nohemy granados l finding s CUSTRED,TO RRJanel Raman 01/04 [facility] Outpatient Encounter [id number] [id number] 01/12 [facility] Outpatient Encounter [id number] [id number] MITRA IVY A 01/17 [facility] Outpatient Encounter [id number] [id number] 01/17 [facility]P EST LOW 20 MIN [id number] [id number] Diagnos is: ICD-10- CM H57.11 Ocular pain, right eye ULICES UBRNETT G 01/17 [facility] Outpatient Encounter [id number] [id number] 01/17 [facility] Outpatient Encounter [id number] [id number] 01/17 [facility] OFF/OP EST MAY X REQ PHY/QHP [id number] [id number] Diagnos is: ICD-10- CM Z01.30 Encount er for exam of blood pressur e w/o abnorma l finding s LOPEZ LIMA R 01/19 [facility] Outpatient Encounter [id number] MAC GALLOWAY R 01/19 [facility] Social History Combined list of available smoking, tobacco, and other social history from Department of Defense and Veterans Affairs facilities. Social History Type Response Date Comment Sourc e Tobacco smoking status NHIS VA-TOBACCO FORMER USER 02/02/2024 [facility] History of tobacco use VA-TOBACCO QUIT 15 YRS OR MORE 02/02/2024 [facility] History of tobacco use VA-TOBACCO FORMER USER 02/17/2023 [facility] History of tobacco use VA-TOBACCO FORMER USER 02/20/2022 [facility] History of tobacco use VA-TOBACCO QUIT 15 YRS OR MORE 02/17/2019 [facility] History of tobacco use VA-TOBACCO QUIT 15 YRS OR MORE 02/15/2019 [facility] History of tobacco use QUIT TOBACCO >7 YEARS AGO 04/08/2018 [facility] History of tobacco use QUIT TOBACCO >7 YEARS AGO 10/28/2017 [facility] History of tobacco use QUIT TOBACCO >7 YEARS AGO 05/28/2017 [facility] History of tobacco use QUIT TOBACCO >7 YEARS AGO 05/17/2008 [facility] History of tobacco use QUIT TOBACCO >7 YEARS AGO 10/30/2007 [facility] History of tobacco use QUIT TOBACCO >7 YEARS AGO 03/09/2007 [facility] History of tobacco use LIFETIME NON-TOBACCO USER 06/11/2005 [facility] History of tobacco use CURRENT NON-TOBACCO USER-HX OF USE 04/08/2005 [facility] History of tobacco use CURRENT NON-TOBACCO USER-HX OF USE 10/05/2004 [facility] History of tobacco use CURRENT NON-TOBACCO USER-HX OF USE 06/29/2004 [facility] History of tobacco use CURRENT NON-TOBACCO USER-HX OF USE 12/30/2003 [facility] History of tobacco use CURRENT NON-TOBACCO USER-HX OF USE 07/15/2003 quit Jul 1998 [facility] History of tobacco use CURRENT NON-TOBACCO USER-HX OF USE 12/27/2002 [facility] History of tobacco use CURRENT NON-TOBACCO USER-HX OF USE 03/31/2002 [facility] History of tobacco use CURRENT NON-TOBACCO USER-HX OF USE 09/15/2001 [facility] History of tobacco use CURRENT NON-TOBACCO USER-HX OF USE 02/16/2001 quit 2 yrs ago, 1 pk day [facility] Plan of Care List of future care activities from Department of Veterans Affairs facilities. Additional future care activities may be listed in the Assessment and Plan section. Date/Time Care Activity Care Activity Detail Facili ty 04/08/2025 AMBULATORY - MEDICINE AMBULATORY - MEDICI NE [facility]
--- NOTE | 2025-01-22 18:34 | ECG_ITS ---
Validas Test Date: 2025-01-22 Pat Name: Fidel Holliday Department: Room: 105 Gender: Male Ladle Liner: : 1945 Requested By: Jacinto Pereira Order Number: [id number] Hortensia MD: Deniz Buckley M.D. Measurements Intervals [place] Rate: 91 P: 88 NC: 234 QRS: -65 QRSD: 138 T: 71 QT: 367 QTc: 452 Interpretive Statements SINUS RHYTHM WITH FIRST DEGREE AV BLOCK RIGHT BUNDLE BRANCH BLOCK [120+ ms QRS DURATION, UPRIGHT V1, 40+ ms S IN I/aVL/V4/V5/V6] LEFT ANTERIOR FASCICULAR BLOCK [QRS AXIS <= -45, QR IN I, RS IN II] LEFT VENTRICULAR HYPERTROPHY AND ST-T CHANGE [VOLTAGE CRITERIA PLUS ST/T ABNORMALITY] POSSIBLE SEPTAL MYOCARDIAL INFARCTION , OF INDETERMINATE AGE [30 ms Q WAVE IN V1/V2] Compared to ECG 06/27/2024 11:38:24 Right bundle-branch block now present Intraventricular conduction delay no longer present Myocardial infarct finding still present Electronically Signed On 01-27-2025 09:15:43 CDT by Deniz Buckley M.D. [email or web address]
--- OUTSIDE RECORDS SUMMARY | 2025-01-22 18:35 | XMS_ITS | Patient Health Record ---
Author Organization [facility] Address [address] [place] [address] Care Team Providers Care Damper Worker Name Role Phone [facility] Pete LEON Primary Care Provider Un available Janet Samuel Unavailable [phone] [place], [place] Unavailable Unavailable Guillermo Darden Unavailable [phone] Allergies Allergen (clinical drug ingredient) Drug/Non Drug Allergy documented on EMR Reaction Allergy Type Onset Date Status No Known Drug Allergy Unknown Drug Allergy Active Results Component Value Reference Range Notes EGD, Upper GI Diagnostic-432 [id number] Reviewed date:10/26/2024 04:01:15 PM Interpretation: Performing Lab: Notes/Report: [id number] Reviewed date:10/26/2024 11:42:16 AM Interpretation: Performing Lab: Notes/Report: [id number] WBG was perfor med at [facility] under CLIA# [id number]. POCT-WBG Performed By Tana Schmid Reason For Referral Reason GERD Diagnosis 1 Gastroesophageal ref lux disease with esophagitis without hemorrhage (K21.00) Referring Provider First Name Raisa Daileyu ff Referring Provider Last Name [place] Referring Provider [facility] Referred Organization [facility] Referred Provider Guillermo Darden Referred Address [address] [place],[address], Referred Provider Specialty Gastroentero logy Referral Priority Routine Medications Medication SIG (Take, Route, Frequency, Duration) Notes Start Date End Date Status Montelukast Sodium 10 MG as directed Orally Active Losartan Potassium 100 MG 1 tablet Orally 2 x a day Active Ipratropium Oneco HFA 17 MCG/ACT 2 puffs as needed Inhalation 2 x a day Active Insulin Glargine 100 UNIT/ML as directed Subcutaneous [...] food O rally Twice a day Active Simvastatin 10 MG 1 tablet in the even ing Orally Once a day Unknown Loratadine 10 MG 1 tablet Orally Once a day Active NovoLOG 100 UNIT/ML as directed Subcutaneous Unknown Calcium Polycarbophil 625 MG 1 tablet as needed Orally 2 x daily Active Metoprolol Tartrate 25 MG 1 tablet with food Orally Twice a day Unknown amLODIPine Besylate 10 MG 1 tablet Orall y Once a day Active Meclizine HCl 25 MG 1 tablet as needed O rally q 8 hrs Unknown Lantus 100 UNIT/ML as directed Subcutaneous Unknown Finasteride 5 MG 1 tablet Orally as n eeded for 30 day(s) Unknown Aspirin Adult 325 MG 1 tablet Orally Onc e a day Unknown Tamsulosin HCl 0.4 MG 1 capsule Orally O nce a day Active Scopolamine 1 MG/3DAYS 1 patch to skin b ehind the ear as needed Transdermal 33mg Active Pantoprazole Sodium 40 MG 1 tablet Orall y Once a day Active Atorvastatin Calcium 40 MG 1 tablet Oral ly Once a day Active Aspirin 81 81 MG 1 tablet Orally Once a day Active Immunizations Vaccine Route Administration Date Status Comme nts Influenza (whole), CPT 06062 Inactive Unknown 05/12/2017 Administered Influenza (whole), CPT 54551 Inactive Unknown 05/04/2018 Administered Social History Tobacco Use: Social History Observation Description Date Details (start date - stop date) Former Smoker NA - NA PHQ-9 Question Answer Notes Little interest or pleasure in doing things Not at all Feeling down, depressed, or hopeless Not at all Trouble falling or staying asleep, or sleeping t oo much Not at all Feeling tired or having little energy Not at all Poor appetite or overeating Not at all Feeling bad about yourself, or that you are a failure, or have let yourself or your family down Not at all Trouble concentrating on thi ngs, such as reading the newspaper or watching television Not at all Moving or speaking so slowly that other people could have noticed. Or the opposite ? being so fidgety or restless that you have been moving around a lot more than usual Not at all Thoughts that you would be b le off , or of hurting yourself in some way Not at all Total Score 0 Tobacco Control (Standard) Question Answer Notes Tobacco use: Former smoker How long has it been since you last smoked? Grea ter than 10 years Problems Problem Type SNOMED Code ICD Code Onset Dates Problem Status W/U Status Risk Notes Problem Gastro-esophageal reflux disease without esophagitis (632722974) Gastro-esophageal reflux disease without esophagitis (K21.9) Active confirmed Problem Dysphagia (77385322) Dysphagia, unspecified (R13.10) Active confirmed Problem 737499814 Irritable bowel syndrome with constipation (K58.1) Active confirmed Problem Acquired spondylolisthesis (019609965) Lumbar spondylolysis (M43.06) Active confirmed Problem 17548174 Dysphagia, unspecified type (R13.10) Active confirmed Problem 589618708 History of coron manpreet artery stent placement (Z95.5) Active confirmed Problem 53580613 Disc degeneratio n, lumbosacral (M51.37) Active confirmed Problem Acquired spondylolisthesis (349004284) 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) Active confirmed Problem Acquired spondylolisthesis (769260199) Spondylolisthesis at L4-L5 level (M43.16) Active confirmed Problem 603616946 Gastroesophageal reflux disease, unspecified whether esophagitis present (K21.9) Active confirmed Problem Gastroesophageal reflux disease with esophagitis (disorder) (680046758) Gastroesophageal reflux disease with esophagitis without hemorrhage (K21.00) Active confirmed Vital Signs Heart Rate 82 /min 09/08/2024 Temperature 98.2 degrees Fahrenheit 09/08/2024 Blood pressure diastolic 50 mm Hg 09/08/2024 Oximetry 97 % 09/08/2024 Weight-kg 80.92 kg 09/08/2024 Height 70 in 09/08/2024 Blood pressure systolic 132 mm Hg 09/08/2024 Weight 178.4 lbs 09/08/2024 BMI 25.59 kg/m2 09/08/2024 Encounters Encounter Location Date Provider Diagnosis [facility] [address] [place] [address] 09/09/2024 Guillermo Darden [facility] [address] [place] [address] 09/08/2024 Janet Acklin Dysphagia, unspecified type R13.10 ; Gastroesophageal reflux disease, unspecified whether esophagitis present K21.9 ; History of coronary artery stent placement Z95.5 and History of stroke Z86.73 [facility] [address] [place] [address] 10/22/2024 Guillermo Darden Dysphagia, unspecifi ed type R13.10 Assessments Encounter Date Diagnosis (ICD Code) Assessment Notes Treatment Notes Treatment Clinical Notes Section Notes 09/08/2024 Dysphagia, unspecified type (ICD-10 - R13.10) The patient reports acute dysphagia and increased GERD symptoms despite PPI. Associated with globus sensation, odynophagia, hoarse voice, and frequent throat clearing. Current reflux treatment includes Protonix BID. Risk factors: History of CVA, chronic GERD, male gender, age. Differentials: Uncontrolled reflux, esophageal stricture, esophagitis, esophageal dysmotility, esophageal spasm, oropharyngeal dysphagia. Prior diagnostics: Esophagram from August 2024 reviewed and noted. Significant for minimal, nonspecific irregularity of mucosa at the junction of the hypopharynx and upper cervical esophagus. Otherwise unremarkable. Previous endoscopy records reviewed and noted. Last EGD: [address] Baird. Recommend EGD for further evaluation with endoscopic intervention as indicated. EGD procedure, risks, benefits, potential complications, and potential interventions discussed. Questions answered to apparent satisfaction. Verbalizes understanding. Desires to proceed with the proposed plan. Schedule EGD with Dr. Darden Advised to avoid Plavix and any OTC supplements, NSAIDs, and aspirin 3 days prior to endoscopy. Obtain cardiac clearance from Dr. Dennis in [place]. Follow-up to be arranged based on endoscopy findings and interventions Recommend strict reflux precautions Continue PPI as prescribed. 09/08/2024 Gastroesophageal reflux disease, unspecified whether esophagitis present (ICD-10 - K21.9) See details outlined above 10/22/2024 Dysphagia, unspecified type (ICD-10 - R13.10) Proceed with diagnostic EGD today. 09/08/2024 History of coronary artery stent placement (ICD-10 - Z95.5) Cardiac history includes [place] in December and February to 2023. Cardiac stent placed in February 2024. Cardiac Clearence with Dr. Dennis, [place], [place] Hold Plavix and aspirin 3 days prior to endoscopy. 09/08/2024 History of stroke (ICD-10 - Z86.73) History of CVA in 2012 With subsequent left carotid stent placement. 09/08/2024 Other I, Latesha Giron, am scribing for, and in the presence of Janet Samuel APRN. I Janet Samuel, professionally performed the services described in this dictation as scribed by Latesha Giron, in my presence, and it is both accurate and complete. Plan Of Treatment Pending Test Test Name Order Date Prothrombin Time 28560 09/16/2022 Prothrombin Time 68689 09/25/2022 ABORh 06828, 15857 09/16/2022 ABORh 79938, 93063 09/25/2022 Antibody Screen 49783 09/25/2022 Antibody Screen 27735 09/16/2022 Basic Metabolic Panel (BMP) 81593 2022 Basic Metabolic Panel (BMP) 17524 2022 Basic Metabolic Panel (BMP) 27879 2022 Basic Metabolic Panel (BMP) 98552 2022 CBC w\ Auto Diff 70257 09/25/2022 CBC w\ Auto Diff 15567 09/16/2022 Partial Thromboplastin Time 38493 2022 Partial Thromboplastin Time 45476 2022 CBC Reflex Man Diff 67007, 24581 023 Chest PA/Lat-91515 09/25/2022 Chest PA/Lat-47663 09/16/2022 Lumbosacral Spine AP/Lat-03131 3 Lumbosacral Spine AP/Lat-09034 3 XR Outside CD 03/26/2022 Electrocardiogram 12 Lead Tracing-54815 09/16/2022 Glucometer WBG--21238 10/02/2022 Glucometer WBG--45935 10/02/2022 Glucometer WBG--18275 10/03/2022 Glucometer WBG--64328 10/03/2022 Glucometer WBG--61297 10/03/2022 Glucometer WBG--73895 10/03/2022 Glucometer WBG--56943 10/04/2022 Glucometer WBG--88133 10/04/2022 Glucometer WBG--45795 10/04/2022 Glucometer WBG--13487 10/04/2022 Glucometer WBG--40994 10/04/2022 Glucometer WBG--90599 10/05/2022 Glucometer WBG--65639 10/05/2022 Glucometer WBG--43982 10/02/2022 Glucometer WBG--47446 10/02/2022 Glucometer WBG--55352 10/02/2022 WBC Auto Diff--68221 10/02/2022 BB ABORH-90707,31812 09/25/2022 zzzFluoro >1h4 10/02/2022 zzzCT Outside CD 04/09/2022 zzzCT Outside CD 04/09/2022 Insurance Providers Payer Name Payer Address Payer Phone Subscriber Number Group Number Insured Name Patient Relationship to Insured Coverage Start Date Coverage End Date [employer] [address] [place] [phone] [id number] Fidel Self - patient is the insured [employer] [address] [place] [address] [id number] Fidel Holliday Self - patient is the insured Medical (General) History Medical History History ICD Code Sleep apnea hypertension diabetes Pneumonia CAD GERD stroke COPD colonic polyps Surgical History Surgery Date(Month/Year) right cartoid 2023 Cardiac stent 2023 Carotid endarterectomy 2012 back surgery L4 L5 x2 appendectomy cholecystectomy Hospitalization History Reason Date(Month/Year) see surgical hx Dehydration / dizziness 2020
--- OUTSIDE RECORDS SUMMARY | 2025-01-22 18:36 | XMS_ITS | Clinical Summary ---
Author Organization [facility] [place] Address [address] [place] [address] Phone Care Team Providers Care Delivery Man Name Role Phone Isiah Waldron Primary Care Provide r Allergies No known active allergies Medications losartan (COZAAR) 100 mg Oral tablet Take 100 mg by mouth daily. Active insulin glargine (LANTUS) 100 unit/mL subCUT Soln Inject 50 Units by subcutaneous injection daily at bedtime . Active metoprolol tartrate (LOPRESSOR) 50 mg tablet Take 25 mg by mouth 2 times daily . 5 Active amLODIPine (NORVASC) 5 mg tablet Take 5 mg by mouth daily at bedtime . 5 Active simvastatin (ZOCOR) 10 mg tablet Take 10 mg by mouth daily at bedtime. Active insulin aspart (NovoLOG) 100 unit/mL injection Inject by subcutaneous injection 3 times daily with meals Sliding scale . 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 Lumbar stenosis with neurogenic claudication DM (diabetes mellitus) 11/19/2012 Hyponatremia 11/19/2012 Essential hypertension 11/19/2012 Carotid artery stenosis 11/19/2012 Resolved Problems Problem Noted Date Diagnosed Date Resolved Date Other and unspecified hyperlipidemia 11/19/2012 12/29/2017 Family History Medical History Relation Name Comments Cancer Father skin Heart Disease Father Hypertension Father Diabetes Mother Relation Name Status Comments Father Mother Social History Tobacco Use Types Packs/Day Years Used Date Smoking Tobacco: Former Cigarettes 1 39 0 07/28/1959 - 07/28/1998 Smokeless Tobacco: Never Alcohol Use Standard Drinks/Week Comments Yes 2 (1 standard drink = 0.6 oz pur e alcohol) Sex and Gender Information Value Date Recorded Sex Assigned at Not on file Legal Sex Male 9:22 AM CDT Gender Identity Not on file Sexual Orientation Not on file Occupation Industry Job Start Date Job End Date Not on file Not on file Not on file Not on file Last Filed Vital Signs Vital Sign Reading Time Taken Comments Blood Pressure 131/46 02/18/2020 10:21 AM CDT Pulse 66 02/18/2020 10:21 AM CDT Temperature 36.1 C (97 F) 01/27/2018 10:23 AM CDT Respiratory Rate 18 04/27/2018 10:03 AM CDT Oxygen Saturation 92% 01/14/2018 7:15 AM CDT Inhaled Oxygen Concentration - - Weight 87.1 kg (192 lb) 02/18/2020 10:21 AM CDT Height 177.8 cm (5' 10 ) 02/18/2020 10:21 AM CDT Body Mass Index 27.55 02/18/2020 10:21 AM CDT Plan of Treatment Health Maintenance Due Date Last Done Comments DIABETES ANNUAL FOOT EXAM 1961 DIABETES ANNUAL RETINAL EXAM 1961 DIABETES MICROALBUMIN ANNUAL SCREEN 1961 LDL CHOLESTEROL ANNUAL 1961 ZOSTER VACCINE (1 of 2) 1993 RSV VACCINE (60+ or ) (1 - 1-dose 75+ series) 2018 DIABETES HBA1C Q 6 MONTHS 08/18/2020 02/16/2020, 10/2017 DTAP/TDAP/TD VACCINES (2 - T d or Tdap) 05/27/2022 05/27/2012 INFLUENZA VACCINE (#1) 2024 8, 05/22/2017, 05/22/2016, Additional history exists PNEUMOCOCCAL VACCINE 50+ YEARS Completed 05/22/2015 , 11/01/2014 Medical Devices Implanted Type Area Instrumentation Technician Device Identifier Shelf Expiration Date Model / Serial / Lot Hemostatic Surgifoam 1gm 1977 [id number] Implanted:Qty: 2 on 01/12/2018 by Myrna Aguilar MD at [facility] Hemostatic N/A: Spine Lumbar [employer]- [employer] 09/05/20191977 [id number] Hemostatic Surgifoam Sz12-7 1971 [id number] Implanted:Qty: 1 on 01/12/2018 by Myrna Aguilar MD at [facility] Hemostatic N/A: Spine Lumbar [employer]- [employer] 09/19/20211971 / [id number] Sealant Mynxgrip 5fr [id number] Implanted:Qty: 1 on 10/02/2017 by Myrna Aguilar MD Sealant Right: Arterial ACCESS CLOSURE 09/24/2019 [id number] / / [id number] Procedures Procedure Name Priority Date/Time Associated Diagnosis Comments HEMOGLOBIN A1C Routine 12/29/2017 10:42 AM CDT from Last 3 Months or Most Recently Relevant to Health Maintenance Results * (ABNORMAL) HEMOGLOBIN A1C (12/29/2017 10:42 AM CDT) HEMOGLOBIN A1C 7.3(H) 4.0 - 6.0 % 12/29/2017 11:21 AM CDT [facility] EST. AVG GLUCOSE, A1C 163 mg/dL 12/29/2017 11:21 AM CDT [facility] Blood Venipuncture / Unknown 12/29/2017 10:42 AM CDT 12/29/2017 10:52 AM CDT Narrative [facility] - 12/29/2017 11:21 AM CDT HGB A1C INTERPRETATION NORMAL: <5.7% PRE-DIABETES: 5.7 - 6.4% DIABETES: 6.5% OR GREATER us Koffi Victor MD CHEMISTRY ORDERABLES Final Resu lt [facility] CLIA #[id number] [place] [address] from Last 3 Months or Most Recently Relevant to Health Maintenance Insurance MEDICARE PART A HOSPITAL ONLY [employer] Advance Directives For more information, please contact: [phone] Documents on File Type Date Recorded Patient [employer] Feeder Expl anation Advance Directive POA 01/16/2018 10:58 AM Advance Directive POA * Full Code (Latest Code Status on File) Date Activated Date Inactivated Comments 01/12/2018 11:14 AM 01/14/2018 1:01 PM Care Teams Delivery Man Relationship Specialty Start Date End Date Isiah Waldron DO [address] [facility] [address] [place] [address] PCP - General Internal Medicine 05/23/17
--- OUTSIDE RECORDS SUMMARY | 2025-01-22 18:36 | XMS_ITS | Data Portability ---
Author Organization [facility] Aggarwal [facility], [facility], [facility] Address [address] [facility] [address] [place] [address] Care Team Providers Care Alternative Dispute Resolution Mediator Name Role Phone KISHORE BRAVO Primary Care Provider Assessment No assessment recorded. Plan of Treatment Reminders Order Date Submit Date Provider Last Modified By Organization Details Last Modified Time Details Appointments None recorded. Lab None recorded. Referral None recorded. Procedures None recorded. Surgeries None recorded. Imaging None recorded. Medication Orders benzonatate 200 mg capsule 2023 024 [facility]/Pharmacy #[id number], [address], [address], 4 15:23:53 amoxicillin 875 mg-potassiu m clavulanate 125 mg tablet 2022 023 [id number], [address], [address], 4 14:59:22 mupirocin 2 % topical ointment 2022 023 [id number], [address], [address], 4 14:59:54 Patient TargetsNo targets recorded. Patient InstructionsNo instructions recorded. Reason for Referral None Reported. 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 4 15:22:36 Cough 43327644 Active 2023 Dharmesh Weinstein MD [address] [place], [address] , [facility] 4 15:23:42 Neuropath y 656162960 Active 2018 Neuropathy ; 12/03/2018 11:43AM by Shweta Morrow LPN, Office Visit; Promoted; acuity set as *; Not Available [facility] 3 03:07:28 Ex-cigare tte smoker 269955107 Active 2018 Ex Smoker; Quit 1998.; 12/03/2018 11:43AM by Shweta Morrow LPN, Office Visit; Promoted; acuity set as *; Not Available [facility] 3 03:07:28 Type 2 diabetes mellitus without complicat ion 710721664 Active 2018 INSULIN DEPENDENT DIABETES MELLITUS; Recorded 12/03/2018 11:43AM by Shweta Morrow LPN, Office Visit; Promoted; acuity set as *; Not Available [facility] 3 03:07:28 Peptic ulcer 51458172 Active 2018 PUD; Positive H Pylori, Recurrent. ; 12/03/2018 11:43AM by Shweta Morrow LPN, Office Visit; Promoted; acuity set as *; Not Available [facility] 3 03:07:28 Pericardi tis 3778093 Active 2018 Pericardit is; Recurrent. Prednisone /ibuprofen .; 12/03/2018 11:43AM by Shweta Morrow LPN, Office Visit; Promoted; acuity set as *; Not Available [facility] 3 03:07:28 Appendect mis Active 2011 Appendecto my; Final path report equivocal, likely an associated diverticul itis.; Date: 2011; 12/03/2018 11:43AM by Shweta Morrow LPN, Office Visit; Promoted; acuity set as *; Not Available [facility] 3 03:07:28 Polyp of colon 11241207 Active 2018 Colon Polyps; Snared, 2007.; 12/03/2018 11:43AM by Shweta Morrow LPN, Office Visit; Promoted; acuity set as *; Not Available [facility] 3 03:07:28 Herpes zoster 3438793 Active 2018 Herpes Zoster; L Leg; 12/03/2018 11:43AM by Shweta Morrow LPN, Office Visit; Promoted; acuity set as *; Not Available [facility] 3 03:07:29 Type 1 diabetes mellitus 49204140 Active 2018 TYPE I DIABETES MELLITUS WITH COMPLICATI ON (Working Diagnosis) ; Recorded 12/03/2018 11:43AM by Shweta Morrow LPN, Office Visit; Promoted; acuity set as *; Not Available [facility] 3 03:07:29 Benign hypertens ion 15511330 Active 2018 HTN; 12/03/2018 11:43AM by Shweta Morrow LPN, Office Visit; Promoted; acuity set as *; Not Available [facility] 3 03:07:29 Irritable bowel syndrome 37307391 Active 2018 IBS; 12/03/2018 11:43AM by Shweta Morrow LPN, Office Visit; Promoted; acuity set as *; Not Available [facility] 3 03:07:29 Hypertens carina disorder 72926599 Active 2018 HYPERTENSI ON, BENIGN (Working Diagnosis) ; Recorded 12/03/2018 11:43AM by Shweta Morrow LPN, Office Visit; Promoted; acuity set as *; BENIGN HYPERTENSI ON; Recorded 10/07/2018 6:57AM by Shweta Morrow LPN, Annotation /Addendum; Promoted; acuity set as *; ; Start Date : 10/07/2018 Not Available [facility] 3 03:07:29 Diverticu lar disease 441601461 Active 2018 Diverticul ar Dz; 12/03/2018 11:43AM by Shweta Morrow LPN, Office Visit; Promoted; acuity set as *; Not Available [facility] 3 03:07:29 Problem Notes None recorded. Procedures Surgical History Date Name Laterality Status Provider Name and Address Organization Details Recorded Time Back Surgery completed [facility] 07/15/2024 15:02:44 Carotid Endarterectomy completed [facility] 07/15/2024 15:03:00 Appendectomy completed [facility] 07/15/2024 15:03:04 Gallbladder Surgery completed Dominga rose marie [facility] 07/15/2024 15:03:13 Stent completed [facility] 07/15/2024 15:03:18 [facility] 07/15/2024 15:03:25 Imaging Results None recorded. Procedure Notes None recorded. Medical Equipment None Reported. Allergies No known drug allergies Medications Name Sig Start Date Stop Date Status Note LastModified by Organization Details LastModified Time blood pressu solution kit active Not Available Not Available Not Available sodium chloride 5 % eye drops INSTILL 1 DROP IN RIGHT EYE FOUR TIMES DAILY active Not Available Not Available No t Available doxycycli ne hyclate 100 mg capsule TAKE 1 CAPSULE TWICE DAILY FOR 7 DAYS active Not Available Not Available No t Available azithromy kasie 250 mg tablet TAKE DIRECTED ON PACKAGE DIRECTIO NS 07/15 completed Not Available Not Available Not Available benzonata te 200 mg capsule TAKE 1 CAPSULE BY MOUTH THREE TIMES A DAY active Not Available Not Available No t Available hydrocodo ne 5 mg-acetam inophen 325 mg tablet TAKE ONE TABLET BY MOUTH EVERY 6 HOURS NEEDED FOR moderate pain active Not Available Not Available No t Available sucralfat e 1 gram tablet TAKE 1 TABLET BY MOUTH EVERY 6 HOURS active Not Available Not Available No t Available Lantus U-100 Insulin 100 unit/mL subcutane ous solution at bedtime active 0; Recorded 12/11/19 2:36PM by Corazon Dunn, EL, Office Visit; Not Available Not Available Not Available acetamino phen 300 mg-codein e 30 mg tablet TAKE 1 TABLET BY MOUTH EVERY 4-6 HOURS NEEDED FOR PAIN active Not Available Not Available No t Available clopidogr el 75 mg tablet TAKE 1 TABLET BY MOUTH EVERY DAY active Not Available Not Available No t Available sulfameth oxazole 800 mg-trimet hoprim 160 mg tablet TAKE 1 TABLET BY MOUTH TWICE A DAY FOR 7 DAYS active Not Available Not Available No t Available hydrocodo ne 10 mg-acetam inophen 325 mg tablet TAKE 1 TABLET BY MOUTH EVERY 4 HOURS NEEDED FOR PAIN active Not Available Not Available No t Available prednisol one acetate 1 % eye drops,osvaldo pension active Not Available Not Available Not Available methocarb zeinab 750 mg tablet TAKE 1 TABLET BY MOUTH EVERY 8 HOURS active Not Available Not Available No t Available tamsulosi n 0.4 mg capsule active Not Available Not Available Not Available OneTouch Ultra Test strips four times daily 2016 active Recorded 12/11/19 2:36PM by Corazon Dunn RN, Office Visit; Mail Order Quantity : 270 Strip; Mail Order Days: 90 Days; Refill Quantity : 0; Not Available Not Available Not Available amlodipin e 10 mg tablet active Not Available Not Available Not Available cephalexi n 500 mg capsule TAKE 1 CAPSULE BY MOUTH THREE TIMES A DAY 07/15 completed Not Available Not Available Not Available pantopraz ole 40 mg tablet,de layed release active Not Available Not Available Not Available simvastat in 20 mg tablet active Not Available Not Available Not Available lansopraz ole 30 mg capsule,d elayed release TAKE 1 CAPSULE BY MOUTH TWICE A DAY active Not Available Not Available No t Available metoprolo l tartrate 50 mg tablet active Not Available Not Available Not Available omeprazol e 20 mg capsule,d elayed release two times daily active Not Available Not Available No t Available monteluka st 10 mg tablet active Not Available Not Available Not Available hydrochlo rothiazid e 25 mg tablet active Not Available Not Available Not Available mupirocin 2 % topical ointment APPLY A SMALL AMOUNT TO AFFECTED AREA 3 TIMES A DAY 07/15 completed Not Available Not Available Not Available azelastin e 137 mcg (0.1 %) nasal spray active Not Available Not Available Not Available methylpre dnisolone 4 mg tablets in a dose pack TAKE 6 TABLETS ON DAY 1 DIRECTED ON PACKAGE AND DECREASE BY 1 TAB EACH DAY FOR A TOTAL OF 6 DAYS 07/15 completed Not Available Not Available Not Available albuterol sulfate HFA 90 mcg/actua tion aerosol inhaler active Not Available Not Available Not Available losartan 100 mg tablet active Not Available Not Available Not Available fluticaso ne propionat e 50 mcg/actua tion nasal spray,osvaldo pension active Not Available Not Available Not Available ipratropi um bromide 21 mcg (0.03 %) nasal spray active Not Available Not Available Not Available finasteri de 5 mg tablet daily active 0; Recorded 12/11/19 2:36PM by Corazon Dunn RN, Office Visit; Not Available Not Available Not Available amoxicill in 875 mg-potass ium clavulana te 125 mg tablet TAKE 1 TABLET BY MOUTH EVERY 12 HOURS FOR 7 DAYS 07/15 completed Not Available Not Available Not Available Insulin R Purified Pork 100 unit/mL injection solution 2005 active Add in dependin g on fingerst icks 2 to 8 units. ; Recorded 12/04/19 11:43AM by Shweta Morrow LPN, Office Visit; Not Available Not Available Not Available metoprolo l tartrate 25 mg tablet two times daily active 0; Recorded 12/11/19 2:36PM by Corazon Dunn RN, Office Visit; Not Available Not Available Not Available aspirin qAM 2005 active Recorded 12/04/19 11:43AM by Shweta Morrow LPN, Office Visit; Not Available Not Available Not Available Cromolyn Sodium Nasal active 0; Recorded 12/11/19 2:36PM by Corazon Dunn RN, Office Visit; Not Available Not Available Not Available amlodipin e besylate (bulk) active 0; Recorded 12/11/19 2:36PM by Corazon Dunn RN, Office Visit; Not Available Not Available Not Available losartan potassium (bulk) daily 2014 active Recorded 12/04/19 19 11:43AM by Shweta Morrow LPN, Office Visit; Mail Order Quantity : 90 Tablet; Refill Quantity : 90; Tablet; Not Available Not Available Not Available Vitals Date Recorded Body height Body mass index (BMI) Body weight Oxygen saturation Oxygen saturation in Arterial blood by Pulse oximetry Heart rate Respiratory rate Body temperature Systolic blood pressure Diastolic blood pressure Provider Name and Address Organization Details Last Updated DateTime 3 177.8 cm 28.7 kg/m2 33742.4 7 g 96 % 96 % 73 /min 20 /min 99.6 [degF] 130 mm[Hg] 66 mm[Hg] Brunilda Smith [facility] 3 10:16:14 Date Recorded Body height Body weight Oxygen saturation Oxygen saturation in Arterial blood by Pulse oximetry Heart rate Respiratory rate Body temperature Systolic blood pressure Diastolic blood pressure Provider Name and Address Organization Details Last Updated DateTime 4 177.8 cm 86951.8 1 g 96 % 96 % 81 /min 16 /min 98.2 [degF] 178 mm[Hg] 68 mm[Hg] Fanny Williamson [facility] 4 15:02:13 Social History None recorded. Functional Status None recorded. Mental Status None recorded. Family History Nothing Reported Notes:Daughter: Cancer; miguel [address] cancer Celeste: DM; of pneumonia., Crispin: Basal Cell Ca, extensive. CAD, Sibs: Emphysema; Alzheimer's. Medical History No medical history recorded. Immunizations Vaccine Type Date Status Note Provider Nam e and Address Organization Details Recorded Time zoster live 8 completed Not Available [facility] 02/22/2023 02:48:59 pneumococcal polysaccharide PPV23 8 completed Not Available [facility] 02/22/2023 02:48:59 Influenza, split virus, trivalent, preservative 8 completed Not Available [facility] 02/22/2023 02:49:00 Past Encounters Encounter ID Performer Location Encounter Start Date Encounter Closed Date Diagnosis/Indication Diagnosis SNOMED-CT Code Diagnosis ICD10 Code Diagnosis Note [id number] MACARIO DUTTA [facility] ([facility]) [address] [place] [phone] 06/28/2023 09:57:05 06/30/2023 14:07:54 Ingrowing nail of toe of right foot [id number] 4219870 L60.0 Recommend epsom salt soaks TID for 2 weeks. Start mupirocin TID and Augmentin BID today. If not seeing any improvemen t in 1 week, should follow up with PCP for probable procedure to have toenail wedge cut. If erythema, yellow/gre en drainage, or fever occurs, should be re-evaluat ed sooner. Patient agrees to plan of care. 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 Likely irritation from his recent choking episode. Follow-up with PCP if symptoms do not improve. Cough 33453677 R05.9 We will provide benzonatat e to use as needed to help numb the cough reflex especially at night when trying to sleep. Health Concerns Section Related Observation LastModified by Organization Detai ls LastModified Time None Recorded Concern Status LastModified by Organization Details LastModified Time None Recorded Advance Directives Directive None Recorded Payers Insurance Date Sequence Insurance Name Policy Number Policy Miller Covered Member ID Miller Member ID Guarantor Name 06/30/2023 1 *SELF PAY* Rob Girard Surritte 01/06/2025 1 [employer] (POS) [id number] Fidel Girard Surritte [id number] Fidel Girard Surritte Notes Date Note Type Note Provider Name and Address Organization Details Recorded Time 06/28/2023 text/html Skin LesionRepor kiran bypatient.Location:t oe; great toe right foot Quality:painful; tender; sore; growing ; becoming more symptomatic; changing in color Severity:mild Duration:started: ; 3 days Timing:abrupt Context:no known trigger Alleviating Factors:peroxide and betadine is what the treatment is now Aggravating Factors:pain increases with touch or pressure applied Associated Symptoms:no fever; no cold symptoms; no nausea; no vomiting; no diarrhea; no urinary symptoms Prior Treatments:none Patient is an 78 year old male who presents to the walk in clinic today for right toenail pain. Patient reports pain for 3 days and expresses concerns for ingrown toenail. Patient does see podiatry on 07/10/23 but states the pain is worsening. MACARIO DUTTA [address] [place] [address], [phone], [facility] 06/28/2023 10:51:32 07/15/2024 text/html walk in patientT his is an 79-year-old gentleman that comes in today for evaluation of his swallowing. The patient states that he had choked on sucralfate and now it feels like he has something stuck in his throat every time he swallows. Patient is able to eat and drink without any difficulties. Patient does have a cough but no significant productivity or other respiratory symptoms. Dharmesh Weinstein MD [address] [place], [phone], [facility] 07/18/2024 13:15:20
[2025-01-22 18:37] VITALS: BP 214/73; PULSE 91; RESP 16; TEMP 36.6; O2SAT 99; BMI 24.8
--- OUTSIDE RECORDS SUMMARY | 2025-01-22 18:38 | XMS_ITS | Clinical Summary ---
Author Organization [facility] Address [address] [facility] Attn: Epic Prelude ADT DONNA HASSAN [address] Care Team Providers Care Cook Chill Technician Name Role Phone Isiah Waldroniel Primary Care Provide r Allergies No known active allergies Medications simvastatin (ZOCOR) 10 mg tablet Take 10 mg by mouth daily at bedtime. 8 Active insulin aspart (NovoLOG) 100 unit/mL injection Inject by subcutaneous injection 3 times daily with meals Sliding scale . 8 Active amLODIPine (NORVASC) 5 mg tablet Take 5 mg by mouth daily at bedtime . 5 Active metoprolol tartrate (LOPRESSOR) 50 mg tablet Take 25 mg by mouth 2 times daily . 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 12/29/2017 Lumbar stenosis with neurogenic claudication Hyponatremia 11/19/2012 Carotid artery stenosis 11/19/2012 DM (diabetes mellitus) 11/19/2012 Essential hypertension 11/19/2012 Resolved Problems Problem Noted Date Diagnosed Date Resolved Date Other and unspecified hyperlipidemia 11/19/2012 12/29/2017 Family History Medical History Relation Name Comments Cancer Father skin Heart Disease Father Hypertension Father Diabetes Mother Relation Name Status Comments Father Mother Social History Tobacco Use Types Packs/Day Years Used Date Smoking Tobacco: Former Cigarettes Q uit: 07/28/1998 Smokeless Tobacco: Never Alcohol Use Standard Drinks/Week Comments Yes 2 (1 standard drink = 0.6 oz pur e alcohol) Sex and Gender Information Value Date Recorded Sex Assigned at Not on file Legal Sex 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 Gender Identity Not on file Sexual Orientation Not on file Last Filed Vital Signs Vital Sign Reading Time Taken Comments Blood Pressure 131/46 02/18/2020 10:21 AM CDT Pulse 66 02/18/2020 10:21 AM CDT Temperature 36.1 C (97 F) 01/27/2018 10:23 AM CDT Respiratory Rate 18 04/27/2018 10:03 AM CDT Oxygen Saturation - - Inhaled Oxygen Concentration - - Weight 87.1 kg (192 lb) 02/18/2020 10:21 AM CDT Height 177.8 cm (5' 10 ) 02/18/2020 10:21 AM CDT Body Mass Index 27.55 02/18/2020 10:21 AM CDT Plan of Treatment Health Maintenance Due Date Last Done Comments DIABETES ANNUAL FOOT EXAM 1961 DIABETES ANNUAL RETINAL EXAM 1961 DIABETES MICROALBUMIN ANNUAL SCREEN 1961 LDL CHOLESTEROL ANNUAL 1961 DTAP/TDAP/TD VACCINES (1 - Tdap) 1962 PNEUMOCOCCAL VACCINE 50+ YEA RS (1 of 2 - PCV) 1962 ZOSTER VACCINE (1 of 2) 1993 RSV VACCINE (60+ or ) (1 - 1-dose 75+ series) 2018 DIABETES HBA1C Q 6 MONTHS 06/30/2018 12/29/2017, 10/2017 INFLUENZA VACCINE (#1) 2024 Medical Devices Implanted Type Area Circus Rider Device Identifier Shelf Expiration Date Model / Serial / Lot Hemostatic Surgifoam 1gm 1977 - [id number] Implanted:Qty : 2 on 01/12/2018 by Myrna Aguilar MD Hemostatic N/A: Spine Lumbar [employer] 09/05/20191977 [id number] Hemostatic Surgifoam Sz12-7 1971 - [id number] Implanted:Qty : 1 on 01/12/2018 by Myrna Aguilar MD Hemostatic N/A: Spine Lumbar [employer]- [employer] 09/19/20211971 / / [id number] Sealant Mynxgrip 5fr [id number] Implanted:Qty : 1 on 10/02/2017 by Myrna Aguilar MD Sealant Right: Arterial ACCESS CLOSURE 09/24/2019 [id number] / / [id number] Procedures Procedure Name Priority Date/Time Associated Diagnosis Comments HEMOGLOBIN A1C Routine 12/29/2017 10:42 AM CDT from Last 3 Months or Most Recently Relevant to Health Maintenance Results * (ABNORMAL) HEMOGLOBIN A1C (12/29/2017 10:42 AM CDT) HEMOGLOBIN A1C 7.3(H) 4.0 - 6.0 % 12/29/2017 11:21 AM CDT [facility] EST. AVG GLUCOSE, A1C 163 mg/dL 12/29/2017 11:21 AM CDT [facility] Blood Venipuncture / Unknown 12/29/2017 10:42 AM CDT 12/29/2017 10:52 AM CDT Narrative [facility] - 12/29/2017 11:21 AM CDT HGB A1C INTERPRETATION NORMAL: <5.7% PRE-DIABETES: 5.7 - 6.4% DIABETES: 6.5% OR GREATER us Koffi Victor MD CHEMISTRY ORDERABLES Final Resu lt [facility] #[id number] [address] [place] [address] [facility] #[id number] [address] [place] [address] from Last 3 Months or Most Recently Relevant to Health Maintenance Insurance MEDICARE PART A HOSPITAL ONLY [place] [employer] Advance Directives For more information, please contact: [phone] Documents on File Type Date Recorded Patient It Compliance Analyst Expl anation Advance Directive POA 01/16/2018 10:58 AM Advance Directive POA Care Teams Cook Chill Technician Relationship Specialty Start Date End Date Isiah Waldron DO [address] [facility] [address] [facility] [address] [place] [address] PCP - General Internal Medicine 05/23/17
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
--- NOTE | 2025-01-22 18:44 | W.ED.CHESTPA ---
HPI - Chest Pain General: Chief Complaint: Chest Pain Stated Complaint: BP high Chest pressure left shoulder pain Time Seen by Provider: 01/22/25 18:40 History of Present Illness: 79-year-old male patient with a history of coronary disease. He had a stent placed last year. He also has a history of carotid disease. He presents with left-sided chest pressure radiating to his left shoulder and mild shortness of breath. This started about an hour prior to arrival. He was not active at this time, as he was shutting his computer down. He continues to have some pressure. Is not as bad as it was. His blood pressure was high at home, and he took his nightly blood pressure medications a little over an hour ago. He denies cough, sputum production, leg swelling, leg pain, recent travel over 1 hour. No nausea or vomiting. Related Data Home Medications ?Medication ?Instructions ?Recorded ?Confirmed losartan 100 mg tablet 100 mg PO QAM 11/08/19 12/07/24 montelukast 10 mg tablet 10 mg PO QPM 11/08/19 12/07/24 (Singulair) fluticasone propionate 50 2 spray intranasal DAILY 08/31/20 12/07/24 mcg/actuation nasal spray,suspension (Flonase Allergy Relief) acetaminophen 500 mg tablet 1,000 mg PO Q6H PRN pain 11/21/20 12/07/24 (Tylenol Extra Strength) amlodipine 10 mg tablet 10 mg PO BEDTIME 11/21/20 12/07/24 tamsulosin 0.4 mg capsule 0.4 mg PO QPM 11/21/20 12/07/24 insulin aspart U-100 100 unit/mL 10 unit SUBCUT TID 02/16/21 12/07/24 (3 mL) subcutaneous pen (Novolog FlexPen U-100 Insulin aspart) insulin glargine 100 unit/mL 50 unit SUBCUT DAILY@02/16/21 12/07/24 subcutaneous solution (Lantus U-100 Insulin) ipratropium bromide 21 mcg (0.03 2 spray intranasal TID PRN Allergy 02/16/21 06/27/24 %) nasal spray Symptoms azelastine 137 mcg (0.1 %) nasal 1 spray intranasal BID PRN 03/09/24 12/07/24 spray ALLERGIC RHINITIS calcium polycarbophil 625 mg tablet 1,250 mg PO DAILY 03/09/24 12/07/24 cholecalciferol (vitamin D3) 50 50 mcg PO DAILY 03/09/24 12/07/24 mcg (2,000 unit) tablet (Vitamin D3) docusate sodium 100 mg capsule 100 mg PO TID PRN SOFTEN STOOLS 03/09/24 12/07/24 (Colace) lactobacillus combination no.4 3 3,000 mmu cells PO QPM 03/09/24 12/07/24 billion cell capsule (Probiotic) loratadine 10 mg tablet 10 mg PO DAILY 03/09/24 12/07/24 multivitamin with iron 1 tab PO DAILY 03/09/24 12/07/24 scopolamine base 1 mg over 3 days 1 patch transdermal Q3D PRN Motion 03/09/24 12/07/24 transdermal patch (Transderm-Scop) Sickness terbinafine HCl 1 % topical cream 1 applic topical BID 03/09/24 12/07/24 triamcinolone acetonide 0.1 % 1 applic topical BID PRN CONTACT 03/09/24 12/07/24 topical ointment DERMATITIS Previous Rx's ?Medication ?Instructions ?Recorded aspirin 81 mg tablet,delayed 81 mg PO DAILY #30 tabs 12/29/23 release (Adult Low Dose Aspirin) atorvastatin 40 mg tablet 40 mg PO DAILY #90 tabs 12/29/23 carvedilol 3.125 mg tablet 3.125 mg PO BID #60 tabs 02/17/24 clopidogrel 75 mg tablet 75 mg PO DAILY #90 tabs 03/30/24 lansoprazole 30 mg capsule,delayed 30 mg PO BID #30 caps 06/27/24 release sucralfate 1 gram tablet (Carafate) 1 g PO Q6H #30 tabs 06/27/24 Allergies Allergy/AdvReac Type Severity Reaction Status Date / Time artichoke Allergy ALGY-Swell Verified 12/07/24 10:05 Lip/Tongue/Throat [facility] PFSH: Medical History (Updated 01/23/25 @ 03:40 by Jacinto Smith DO) CAD (coronary artery disease) Peripheral vascular disease PAD (peripheral artery disease) Peripheral vascular disease Bilateral carotid artery stenosis Sleep apnea COPD (chronic obstructive pulmonary disease) Hypertension Seizure disorder Hearing loss History of left common carotid artery stent placement GERD (gastroesophageal reflux disease) Diabetes Surgical History Status post laparoscopic cholecystectomy (12/01/19) H/O knee surgery History of back surgery S/P appendectomy Status post colonoscopy with polypectomy H/O esophagogastroduodenoscopy Family History Other CAD (coronary artery disease) Cancer Dementia Diabetes Hyperlipidemia Hypertension Postsurgical cardiac pacemaker in situ Stroke Social History (Updated 01/23/25 @ 00:04 by Adebayo Price MD) Smoking and tobacco/nicotine status: former use of tobacco/nicotine Quit status (tobacco/nicotine): has quit using Year quit tobacco: 1998 Former quit date comment: After smoking 56 years at a pack a day Alcohol intake: current Alcohol intake frequency: holidays/special occasions only Substance/Drug Use: never Additional social history: 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 Patient is companied by his Usha to whom he has been 63 years. Patient wants DNR status confirmed today 01/23/2025 with Adebayo Price MD Marital status: Marital status details: Usha Current occupational status: retired Previous occupational history: [email or web address] 38 years Physical Exam Const: COMMON NORMALS: no acute distress GENERAL APPEARANCE: cooperative; not ill appearing and not frail appearing HENMT: COMMON NORMALS: normocephalic, atraumatic and Normal external nose present HEAD & SCALP: normocephalic and atraumatic FACE & SINUS: normal facial exam and face symmetric NOSE: Normal external nose present Eye: COMMON NORMALS: Equal, round and reactive pupils present and EOMs intact bilaterally PUPIL: Yes Equal, round and reactive pupils present Neck/C-Spine: GENERAL: Yes trachea midline Chest: CHEST: Yes Symmetrical chest wall rise Resp: COMMON NORMALS: normal respiratory effort, No retractions, No use of accessory muscles and clear to auscultation bilaterally AUSCULTATION: clear to auscultation bilaterally Cardio: COMMON NORMALS: regular rhythm RATE: tachycardic RHYTHM: regular rhythm GI: COMMON NORMALS: Normal to inspection, nondistended, normoactive bowel sounds present Extremity: COMMON NORMALS: no pedal edema Neuro: ARIANA COMA SCALE: document GCS findings Ariana coma scale eye opening: Spontaneous Ariana coma scale verbal response: Orientated [place] coma scale motor response: Obey commands Ariana coma scale total score: 15 SENSORY EXAM: Yes extremities (intact) Psych: COMMON NORMALS: speech normal SPEECH: Yes normal speech Skin: COMMON NORMALS: no rashes or lesions noted GENERAL SKIN EXAM: no rashes or lesions noted Course Vital Signs: Vital signs: Vital Signs Temperature 97.9 F 01/22/25 18:37 Pulse Rate 105 H 01/23/25 01:48 Respiratory Rate 24 H 01/23/25 01:48 Blood Pressure 112/91 01/23/25 01:48 Pulse Oximetry 94 01/23/25 01:48 Oxygen Delivery Me thod Room Air 01/23/25 01:23 MDM - Chest Pain Medical Decision Making Patient is quite hypertensive on arrival. 200 systolic. He is given IV metoprolol, nitroglycerin paste. He does have a history. Blood pressure came down slowly and nicely. However despite this, when sitting up in bed, the blood pressure and heart rate dropped. He became diaphoretic and nauseated. He was recovering by the time a repeat EKG was drawn. This is likely a vasovagal response, given his history, difficult to prove. His troponin elevated by only 3 points at 2 hours. No EKG changes otherwise. Chest x-ray is clear. He will be observed given his history. Lab Data 01/22/25 18:47 01/22/25 18:47 Radiology Impressions Chest X-Ray 01/22/25 18:51 IMPRESSION: Hyperinflated but clear lungs. No other acute cardiopulmonary abnormality. Laboratory Results WBC 10.13 10^3/uL (3.29-11.43) 01/22/25 18:47 RBC 4.28 10^6/uL (3.85-5.65) 01/22/25 18:47 Hgb 13.40 g/dL (11.27-16.99) 01/22/25 18:47 Hct 39.1 % (37-53) 01/22/25 18:47 MCV 91.4 fl (82-101) 01/22/25 18:47 MCH 31.3 pg (27-33) 01/22/25 18:47 MCHC 34.3 g/dL (30-55) 01/22/25 18:47 RDW 12.9 % (12.1-15.1) 01/22/25 18:47 Plt Count 264 10^3/cmm (157-399) 01/22/25 18:47 MPV 9.9 fL (7.4-10.4) 01/22/25 18:47 Neut % (Auto) 62.8 % 01/22/25 18:47 Lymph % (Auto) 19.0 % 01/22/25 18:47 [place] % (Auto) 11.5 % 01/22/25 18:47 Eos % (Auto) 5.7 % 01/22/25 18:47 Baso % (Auto) 0.7 % 01/22/25 18:47 Neut # (Auto) 6.36 10^3/uL (1.8-7.7) 01/22/25 18:47 Lymph # (Auto) 1.9 10^3/uL (0.8-4.8) 01/22/25 18:47 [place] # (Auto) 1.2 10^3/uL (0.2-0.9) H 01/22/25 18:47 Eos # (Auto) 0.6 10^3/uL (0.0-0.8) 01/22/25 18:47 Baso # (Auto) 0.1 10^3/uL (0.0-0.1) 01/22/25 18:47 Nucleated RBC % (auto) 0 % 01/22/25 18:47 Nucleated RBCs # 0.0 /100WBC 01/22/25 18:47 PT 13.10 SECONDS (12.1-14.9) 01/22/25 18:47 INR 0.92 (0.8-1.2) 01/22/25 18:47 APTT 26.0 SECONDS (23.9-36.7) 01/22/25 18:47 Sodium 129 mmol/L (136-145) L 01/22/25 18:47 Potassium 4.1 mmol/L (3.5-5.1) 01/22/25 18:47 Chloride 92 mmol/L (98-107) L 01/22/25 18:47 Carbon Dioxide 23 mmol/L (22-29) 01/22/25 18:47 Anion Gap 18.1 (5-19) 01/22/25 18:47 BUN 11 mg/dL (8-23) 01/22/25 18:47 Creatinine 0.8 mg/dL (0.7-1.2) 01/22/25 18:47 GFR Calculation Not Reportable 01/22/25 18:47 Glucose 127 mg/dL (65-115) H 01/22/25 18:47 Calculated Osmolality 269 mOsm/kg (285-295) L 01/22/25 18:47 Calcium 9.7 mg/dL (8.5-10.5) 01/22/25 18:47 Total Bilirubin 0.4 mg/dL (0.15-1.2) 01/22/25 18:47 AST 21 U/L (0-40) 01/22/25 18:47 ALT 17 U/L (0-41) 01/22/25 18:47 Alkaline Phosphatase 86 U/L (40-130) 01/22/25 18:47 Troponin T Baseline 15 ng/L (0-15) 01/22/25 18:47 Troponin T 120 Minute 17.86 ng/L (0-15) H 01/22/25 20:50 Delta Troponin T 2.86 ABS# (0-10) 01/22/25 20:50 NT-Pro-B Natriuret Pep 231 pg/mL (0-450) 01/22/25 18:47 Total Protein 7.3 g/dL (6.6-8.7) 01/22/25 18:47 Albumin 4.4 g/dL (3.5-5.2) 01/22/25 18:47 Globulin 2.9 g/dL (1.3-4.6) 01/22/25 18:47 All radiology interpretation(s) finalized by discharge Discharge Plan Discharge Patient Disposition: Placed in Observation Admit Provider: Adebayo Price Clinical Impression: Chest pain, CAD (coronary artery disease) Coding Level of Care Code ED Dispatcher [employer] for Katherine Jalloh
--- NOTE | 2025-01-22 18:51 | XRR_ITS ---
PROCEDURE INFORMATION: Exam: XR Chest Exam date and time: 01/22/2025 6:56 PM Age: 79 years old Clinical indication: Pain; Chest pressure; HTN TECHNIQUE: Imaging protocol: Radiologic exam of the chest. Views: 1 view. COMPARISON: CR XR chest 1V portable [id number] 06/27/2024 9:40 AM FINDINGS: Lungs: Lungs are hyperinflated. Calcified right upper lung granuloma, otherwise clear parenchyma. Pleural spaces: No pleural effusion. No pneumothorax. Heart/Mediastinum: Cardiac silhouette is normal in size for technique. Bones/joints: Age appropriate. XR/XR chest 1V portable [id number] IMPRESSION: Hyperinflated but clear lungs. No other acute cardiopulmonary abnormality.
[2025-01-22 18:52] VITALS: BP 201/85; PULSE 92; RESP 16; O2SAT 98
[2025-01-22 18:58] LABS: Basophils # 0.1 10^3/uL (0.0-0.1); Basophils % 0.7 %; Eosinophils # 0.6 10^3/uL (0.0-0.8); Eosinophils % 5.7 %; Hematocrit 39.1 % (37-53); Lymphocytes # 1.9 10^3/uL (0.8-4.8); Mean Corpuscular HGB Conc 34.3 g/dL (30-55); Mean Corpuscular Hemoglobin 31.3 pg (27-33); Mean Corpuscular Volume 91.4 fl (82-101); Mean Platelet Volume 9.9 fL (7.4-10.4); Monocytes # 1.2 10^3/uL (0.2-0.9); Monocytes % 11.5 %; Neutrophils # 6.36 10^3/uL (1.8-7.7); Neutrophils % 62.8 %; Nucleated Red Blood Cells % 0 %; Platelet Count 264 10^3/cmm (157-399); Red Blood Count 4.28 10^6/uL (3.85-5.65); Red Cell Distribution Width 12.9 % (12.1-15.1); White Blood Count 10.13 10^3/uL (3.29-11.43)
[2025-01-22] MEDS: aspirin 81 mg Chew Tablet 162 MG PO (18:58)
[2025-01-22] MEDS: metoprolol tartrate 1 mg/1 mL SDV 5 mL 5 MG IVP (18:59)
[2025-01-22] MEDS: ondansetron 2 mg/ML SDV 2 mL 4 MG IVP ×2 (19:00→22:53)
[2025-01-22] MEDS: morphine 4 mg/mL SDV 1 mL 2 MG IVP (19:00)
[2025-01-22] MEDS: nitroglycerin 1 gm/inch oint Pkt 1 INCH TOPICAL (19:01)
[2025-01-22 19:06] VITALS: BP 186/83; PULSE 82; RESP 16; O2SAT 100
[2025-01-22 19:07] LABS: INR 0.92 (0.8-1.2)
[2025-01-22 19:13] LABS: Troponin(5th) Baseline 15 ng/L (0-15)
[2025-01-22 19:26] LABS: Alanine Aminotransferase 17 U/L (0-41); Albumin Level 4.4 g/dL (3.5-5.2); Alkaline Phosphatase 86 U/L (40-130); Aspartate Amino Transferase 21 U/L (0-40); Blood Urea Nitrogen 11 mg/dL (8-23); Calcium 9.7 mg/dL (8.5-10.5); Carbon Dioxide 23 mmol/L (22-29); Chloride 92 mmol/L (98-107); Globulin 2.9 g/dL (1.3-4.6); Glucose 127 mg/dL (65-115); Osmolality Calculated 269 mOsm/kg (285-295); Sodium 129 mmol/L (136-145); Total Bilirubin 0.4 mg/dL (0.15-1.2); Total Protein 7.3 g/dL (6.6-8.7)
[2025-01-22 19:27] LABS: Anion Gap 18.1 (5-19); Potassium 4.1 mmol/L (3.5-5.1)
[2025-01-22 19:30] VITALS: BP 168/95; PULSE 81; RESP 16; O2SAT 94
[2025-01-22 19:50] LABS: NT Pro B Type Natriuretic Pept 231 pg/mL (0-450)
[2025-01-22 21:36] LABS: Troponin 5 2HR 17.86 ng/L (0-15); Troponin 5 2HR Delta 2.86 ABS# (0-10)
--- NOTE | 2025-01-22 22:46 | ECG_ITS ---
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 Measurements Intervals [place] Rate: 63 P: 48 [place]: 245 QRS: -59 QRSD: 137 T: 6 QT: 408 QTc: 420 Interpretive Statements SINUS RHYTHM WITH FIRST DEGREE AV BLOCK INTRAVENTRICULAR CONDUCTION DELAY [130+ ms QRS DURATION] VOLTAGE CRITERIA FOR LVH [MEETS CRITERIA IN ONE OF: R(aVL), S(V1), R(V5), R(V5/V6)+S(V1)] POSSIBLE SEPTAL MYOCARDIAL INFARCTION , OF INDETERMINATE AGE [30 ms Q WAVE IN V1/V2] PROBABLE LATERAL MYOCARDIAL INFARCTION , PROBABLY OLD [35 ms Q WAVE IN I/aVL/V5/V6] Compared to ECG 01/22/2025 18:34:50 Intraventricular conduction delay now present ST (T wave) deviation no longer present Myocardial infarct finding still present Electronically Signed On 01-27-2025 09:14:21 CDT by Deniz Buckley M.D. [id number]
[2025-01-22] MEDS: sodium chloride 0.9% 1,000 ML 999 ML IV (22:53)
--- NOTE | 2025-01-22 23:55 | PM.HP ---
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 Blood pressure was 200/90 and he was given Nitropaste and morphine. He was given metoprolol. Blood pressure dropped from 180 systolic slowly to 140 then he had an episode of bradycardia to the 50s and systolic blood pressure 80. That has since recovered. Patient reports some nausea and also blood pressure erratic for 2 weeks 178/80 heart rate 89 on the high and and 113/63 heart rate 70 on the low end. He has not had chest pain exactly but he did have tightness today. Last week he was not having tightness but blood pressure has been erratic for 2 weeks. Coronary history includes left circumflex obtuse marginal [address] Aguilar on 12/28/2023. Patient later had an LAD diagonal stented by Dr. Buckley on 03/22/2024. He also has history of right carotid endarterectomy [address] Duenas and a left carotid stent 2012 done at an outside hospital Review of Systems Narrative: General No fevers chills weight gain weight loss Cardiovascular as above Respiratory denies dyspnea on exertion he has had postnasal drip with allergies but not a significant cough GI some nausea no vomiting no diarrhea constipation no dysuria hematuria incontinence Medications/Allergies Home Medications ?Medication ?Instructions ?Recorded ?Confirmed ?Last Taken ?Type losartan 100 mg tablet 100 mg PO QAM 11/08/19 12/07/24 06/26/24 History montelukast 10 mg tablet 10 mg PO QPM 11/08/19 12/07/24 06/26/24 History (Singulair) fluticasone propionate 50 2 spray intranasal DAILY 08/31/20 12/07/24 03/21/24 22:00 History mcg/actuation nasal spray,suspension (Flonase Allergy Relief) acetaminophen 500 mg tablet 1,000 mg PO Q6H PRN pain 11/21/20 12/07/24 Unknown History (Tylenol Extra Strength) amlodipine 10 mg tablet 10 mg PO BEDTIME 11/21/20 12/07/24 06/26/24 History tamsulosin 0.4 mg capsule 0.4 mg PO QPM 11/21/20 12/07/24 06/26/24 History insulin aspart U-100 100 unit/mL 10 unit SUBCUT TID 02/16/21 12/07/24 03/21/24 18:00 History (3 mL) subcutaneous pen (Novolog FlexPen U-100 Insulin aspart) insulin glargine 100 unit/mL 50 unit SUBCUT DAILY@21 02/16/21 12/07/24 06/26/24 History subcutaneous solution (Lantus U-100 Insulin) ipratropium bromide 21 mcg (0.03 2 spray intranasal TID PRN Allergy 02/16/21 06/27/24 06/26/24 History %) nasal spray Symptoms aspirin 81 mg tablet,delayed 81 mg PO DAILY #30 tabs 12/29/23 12/07/24 06/26/24 Rx release (Adult Low Dose Aspirin) atorvastatin 40 mg tablet 40 mg PO DAILY #90 tabs 12/29/23 12/07/24 06/26/24 Rx carvedilol 3.125 mg tablet 3.125 mg PO BID #60 tabs 02/17/24 12/07/24 06/26/24 Rx azelastine 137 mcg (0.1 %) nasal 1 spray intranasal BID PRN 03/09/24 12/07/24 03/21/24 22:00 History spray ALLERGIC RHINITIS calcium polycarbophil 625 mg tablet 1,250 mg PO DAILY 03/09/24 12/07/24 06/26/24 History cholecalciferol (vitamin D3) 50 50 mcg PO DAILY 03/09/24 12/07/24 06/26/24 History mcg (2,000 unit) tablet (Vitamin D3) docusate sodium 100 mg capsule 100 mg PO TID PRN SOFTEN STOOLS 03/09/24 12/07/24 03/21/24 18:00 History (Colace) lactobacillus combination no.4 3 3,000 mmu cells PO QPM 03/09/24 12/07/24 06/26/24 History billion cell capsule (Probiotic) loratadine 10 mg tablet 10 mg PO DAILY 03/09/24 12/07/2424 History multivitamin with iron 1 tab PO DAILY 03/09/24 12/07/24 06/26/24 History scopolamine base 1 mg over 3 days 1 patch transdermal Q3D PRN Motion 03/09/24 12/07/24 06/27/24 History transdermal patch (Transderm-Scop) Sickness terbinafine HCl 1 % topical cream 1 applic topical BID 03/09/24 12/07/24 06/26/24 History triamcinolone acetonide 0.1 % 1 applic topical BID PRN CONTACT 03/09/24 12/07/24 06/26/24 History topical ointment DERMATITIS clopidogrel 75 mg tablet 75 mg PO DAILY #90 tabs 03/30/24 12/07/24 06/26/24 Rx lansoprazole 30 mg capsule,delayed 30 mg PO BID #30 caps 06/27/24 12/07/24 Unknown Rx release sucralfate 1 gram tablet (Carafate) 1 g PO Q6H #30 tabs 06/27/24 12/07/24 Unknown Rx Allergies Allergy/AdvReac Type Severity Reaction Status Date / Time artichoke Allergy ALGY-Swell Verified 12/07/24 10:05 Lip/Tongue/Throat PFSH Acute PFSH: Medical History (Updated 01/23/25 @ 00:10 by Adebayo Price MD) CAD (coronary artery disease) Peripheral vascular disease PAD (peripheral artery disease) Peripheral vascular disease Bilateral carotid artery stenosis Sleep apnea COPD (chronic obstructive pulmonary disease) Hypertension Seizure disorder Hearing loss History of left common carotid artery stent placement GERD (gastroesophageal reflux disease) Diabetes Surgical History Status post laparoscopic cholecystectomy (12/01/19) H/O knee surgery History of back surgery S/P appendectomy Status post colonoscopy with polypectomy H/O esophagogastroduodenoscopy Family History Other CAD (coronary artery disease) Cancer Dementia Diabetes Hyperlipidemia Hypertension Postsurgical cardiac pacemaker in situ Stroke Social History (Updated 01/23/25 @ 00:04 by Adebayo Price MD) Smoking and tobacco/nicotine status: former use of tobacco/nicotine Quit status (tobacco/nicotine): has quit using Year quit tobacco: 1998 Former quit date comment: After smoking 56 years at a pack a day Alcohol intake: current Alcohol intake frequency: holidays/special occasions only Substance/Drug Use: never Additional social history: He is 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 Patient is companied by his Usha to whom he has been 63 years. Patient wants DNR status confirmed today 01/23/2025 with Adebayo Price MD Marital status: Marital status details: Usha Current occupational status: retired Previous occupational history: [employer] 38 years Vitals/I&O/Wt Last Vital Signs Temp 97.9 F 01/22/25 18:37 Pulse 81 01/22/25 19:30 Resp 16 01/22/25 19:30 BP 168/95 01/22/25 19:30 Pulse Ox 94 01/22/25 19:30 O2 Del Method Room Air 01/22/25 18:37 01/22/25 01/22/25 01/23/25 14:59 22:59 06:59 Intake Total 0 / 0 Balance 0 / 0 Weight last 48 hrs Weight 78.471 kg Physical Exam Narrative: General well-developed well-nourished male in no acute cardiopulmonary stress CV regular rate and rhythm Lungs clear to auscultation bilaterally Abdomen positive bowel sounds soft nontender Calves no tenderness cords pretrip edema Oral Mallampati 2 Neck no carotid bruits right carotid endarterectomy scar is noted Mentation alert and oriented x 3 Data 01/22/25 18:47 01/22/25 18:47 A&P Assessment and plan (1) Chest pain: Patient is admitted and started on Lovenox. His home blood pressure medicines are resumed (2) CAD (coronary artery disease): Monitor troponins and clinicals symptoms. If he has more chest pain then he will need to stay and have a stress test on Friday or an angiogram sooner. If not then likely he can go home and follow-up with outpatient stress test (3) Diabetes mellitus type 2 in nonobese: Start sliding scale insulin and a diabetic diet (4) Sleep apnea: Patient says he uses [place] nasal pillows and a ResMed machine at home. Because it is midnight and he does not want his his to have to drive home and then back and then home again we are going to prescribe CPAP machine that we have here to similar settings and nasal mask as available. PDMP PDMP Reviewed: Not Reviewed Attestations Medical Necessity Statement*: Patient is admitted with atypical chest pain and labile blood pressure to observation with anticipated stay 24 to 48 hours Coding Level of Care Code 62775 Diagnoses Chest pain R07.9 Coronary artery disease involving [place] coronary artery of [place] heart without angina pectoris I25.10 Coronary Disease-Associated Artery/Lesion type: [place] artery [place] vs. transplanted heart: [place] heart Associated angina: without angina Diabetes mellitus type 2 in nonobese E11.9 Sleep apnea G47.30 Time Spent (min) 70
[2025-01-22] MEDS: enoxaparin 80 mg/0.8 mL Syringe SUBCUT (23:58)
[2025-01-23] VITALS (11 sets, daily range): BP systolic 112–145; BP diastolic 59–91; PULSE 66–105; RESP 13–24; TEMP 36.7–36.8; O2SAT 94–98; BMI 23.6
[2025-01-23 01:16] LABS: Troponin 5 6HR 18.22 ng/L (0-15); Troponin 5 6HR Delta 3.22 ng/L (0-12)
[2025-01-23] MEDS: insulin glargine 100 units/1 mL 40 UNIT SUBCUT (02:23)
[2025-01-23] MEDS: sodium chlor 0.9% + KCl 20 mEq 20 MEQ/1,000 ML BAG 100 MEQ IV (02:24)
[2025-01-23] MEDS: pantoprazole 40 mg SDV IVP ×2 (02:24→12:30)
--- NOTE | 2025-01-23 02:29 | ECG_ITS ---
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 Measurements Intervals [place] Rate: 98 P: -78 NC: 193 QRS: -60 QRSD: 133 T: 69 QT: 360 QTc: 460 Interpretive Statements SINUS RHYTHM RIGHT BUNDLE BRANCH BLOCK [120+ ms QRS DURATION, UPRIGHT V1, 40+ ms S IN I/aVL/V4/V5/V6] LEFT ANTERIOR FASCICULAR BLOCK [QRS AXIS <= -45, QR IN I, RS IN II] LEFT VENTRICULAR HYPERTROPHY AND ST-T CHANGE [VOLTAGE CRITERIA PLUS ST/T ABNORMALITY] POSSIBLE SEPTAL MYOCARDIAL INFARCTION , OF INDETERMINATE AGE [30 ms Q WAVE IN V1/V2] Compared to ECG 06/27/2024 11:38:24 First degree AV block no longer present Intraventricular conduction delay no longer present Myocardial infarct finding still present Electronically Signed On 01-27-2025 09:37:39 CDT by Deniz Buckley M.D. [email or web address]
--- NOTE | 2025-01-23 05:28 | PC.NURSE ---
Just wanted to clarify the insulin orders for Fidel Holliday rm 105 with Deshaun. He has insulin Lispro 10 units subq TID AC [facility] And he also has lispro sliding scsle with meals and bedtime scheduled as well so he would be getting 10 units 0700,1100,1700 and insulin 0800,1200,1800, and 2100 Dr Price gave orders for 10 units of humalog along with sliding scale with meals and bedtime.
[2025-01-23 07:02] LABS: Glucose Point of Care 215 mg/dL (70-110)
[2025-01-23] MEDS: insulin lispro 100 unit/1 mL 10 UNIT SUBCUT ×3 (08:57→17:22)
[2025-01-23] MEDS: insulin lispro 100 unit/1 mL SUBCUT ×3 (08:58→17:23)
[2025-01-23] MEDS: loratadine 10 mg Tablet PO (08:59)
[2025-01-23] MEDS: sucralfate 1 gm Tablet PO ×4 (08:59→20:09)
[2025-01-23] MEDS: carvedilol 3.125 mg Tablet PO (09:00)
[2025-01-23] MEDS: multivitamin therapeutic Tablet 1 TAB PO (09:00)
[2025-01-23] MEDS: atorvastatin 40 mg Tablet PO (09:00)
[2025-01-23] MEDS: losartan 50 mg Tablet 100 MG PO (09:00)
[2025-01-23] MEDS: clopidogrel 75 mg Tablet PO (09:00)
[2025-01-23] MEDS: fluticasone nasal spray 16gm Btl 2 SPRAY INTRANASAL (09:01)
[2025-01-23] MEDS: aspirin 81 mg EC Tablet PO (09:01)
--- NOTE | 2025-01-23 09:38 | USCV_ITS ---
Fidel Holliday Age: 79 Gender: M : 1945 Exam Date: 01/23/2025 10:13 Ordering Phys: Carlos Friend MD Technologist: Peter Avelar Exam Location: [facility] [place] Indication: cad BP: 145 / 74 HR: 71 Rhythm: Sinus Technical Quality: Adequate MEASUREMENTS (Male / Female) Normal Values 2D ECHO LV Diastolic Diameter PLAX 4.0 cm 4.2 - 5.9 / 3.9 - 5.3 cm IVS Diastolic Thickness 1.3 cm 0.6 - 1.0 / 0.6 - 0.9 cm IVS Systolic Thickness 1.7 cm LVPW Diastolic Thickness 1.7 cm 0.6 - 1.0 / 0.6 - 0.9 cm LVPW Systolic Thickness 1.8 cm LVOT Diameter 2.0 cm LV Ejection Fraction 2D Teich 55.0 % LV Ejection Fraction MOD 4C 70.4 % LV Ejection Fraction MOD 2C 74.3 % LV Ejection Fraction 2C AL 73.9 % LA Diameter 3.0 cm RA Systolic Volume 4C AL 60.2 ml RA Systolic Volume 4C MOD 57.2 ml LA Sys Volume AL 47.2 cm cubed LA Sys Volume Index AL 24.3 cm cubed/m squared Aorta at Sinotubular Diameter 2.1 cm IVC Diameter 1.3 cm M-MODE LA Ao Ratio MM 1.7 AV Cusp Separation MM 1.6 cm DOPPLER AV Peak Velocity 213.7 cm/s LVOT Peak Velocity 103.0 cm/s AV Area Cont Eq vti 1.8 cm squared AV Area Cont Eq pk 1.5 cm squared MV Peak Velocity 111.0 cm/s MV Area PHT 3.5 cm squared Mitral E to A Ratio 0.9 TR Peak Velocity 285.0 cm/s TR Peak Gradient 32.5 mmHg TR Mean Velocity 214.0 cm/s TR Mean Gradient 19.5 mmHg TR Velocity Time Integral 65.5 cm PV Peak Velocity 112.3 cm/s RV Ejection Time 0.3 s FINDINGS Left Ventricle Left ventricle is normal in size. LV systolic function is normal with EF of 60-65%. No regional wall motion abnormalities are seen. Right Ventricle Normal in size and function Right Atrium Normal in size Left Atrium Normal in size Mitral Valve Mitral valve is thickened. Trace mitral regurgitation. Aortic Valve Aortic valve is thickened and calcified. Mild aortic stenosis with aortic valve area of 1.78 cm2 with mean gradient of 10 mmHg. Tricuspid Valve Mild tricuspid regurgitation. Pulmonary artery systolic pressure is normal. Pulmonic Valve Trace pulmonic regurgitation Pericardium Normal Aorta Normal in size IVC Appears to be normal CONCLUSIONS LV systolic function is normal with EF of 60-65% Trace mitral regurgitation Mild aortic stenosis with aortic valve area of 1.78 cm2 with mean gradient of 10 mmHg. Mild tricuspid regurgitation. Trace pulmonic regurgitation Deniz Buckley MD (Electronically Signed) Final Date: 23 January 2025 13:21 S
--- NOTE | 2025-01-23 09:38 | ECG_ITS ---
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
[2025-01-23 10:26] LABS: Estmated Average Glucose 169; Hemoglobin A1C 7.5 % (4.0-6.0)
[2025-01-23 10:37] LABS: Iron 51 ug/dL (59-158); Percent Saturation 22.5 % (20-50); Thyroid Stimulating Hormone 3.17 uIU/mL (0.27-4.20); Total Iron Binding Capacity 226 mcg/dl; Unsaturated Iron Binding 175 ug/dL (112-347); Vitamin B12 497 pg/mL (232-1245)
--- NOTE | 2025-01-23 11:59 | P.PN_ITS ---
Subjective 2 Subjective: Admitted overnight. Seen with family bedside. Denies any chest pain. Blood pressures slightly elevated better controlled. Denies any nausea, vomiting, headache. Patient states his blood pressures for last 2 weeks have been pretty labile and going up and down. States chest pain yesterday was new and was at rest. Vitals/I&O/Wt Last Vital Signs Temp 98.3 F 01/23/25 08:00 Pulse 93 01/23/25 08:00 Resp 22 H 01/23/25 08:00 BP 145/74 01/23/25 09:00 Pulse Ox 96 01/23/25 08:00 O2 Del Method Room Air 01/23/25 08:00 01/22/25 01/23/25 01/23/25 22:59 06:59 14:59 Intake Total 0 / 0 1240 / 1240 120 / 120 Output Total 0 / 0 700 / 700 Balance 0 / 0 1240 / 1240 -580 / -580 Weight last 48 hrs Weight 76.612 kg Weight 77.201 kg Weight 74.899 kg Weight 78.471 kg Physical Exam 2 Narrative: General well-developed well-nourished male in no acute cardiopulmonary stress CV regular rate and rhythm Lungs clear to auscultation bilaterally Abdomen positive bowel sounds soft nontender Calves no tenderness cords pretrip edema Oral Mallampati 2 Neck no carotid bruits right carotid endarterectomy scar is noted Mentation alert and oriented x 3 Data 01/22/25 18:47 01/22/25 18:47 A&P Assessment and plan (1) Chest pain: Patient is admitted and started on Lovenox. His home blood pressure medicines are resumed (2) CAD (coronary artery disease): Monitor troponins and clinicals symptoms. If he has more chest pain then he will need to stay and have a stress test on Friday or an angiogram sooner. If not then likely he can go home and follow-up with outpatient stress test (3) Diabetes mellitus type 2 in nonobese: Start sliding scale insulin and a diabetic diet (4) Sleep apnea: Patient says he uses [place] nasal pillows and a ResMed machine at home. Because it is midnight and he does not want his his to have to drive home and then back and then home again we are going to prescribe CPAP machine that we have here to similar settings and nasal mask as available. Plan Plan for the day: Concern for unstable angina in setting of accelerated hypertension. Appreciate troponin cycle. Continue with full dose Lovenox as started last night. Continue with DAPT, statin. N.p.o. after midnight. Lexiscan stress test in AM. Follow-up echocardiogram. Goal blood pressure less than 140/90 MAG. Continue with home dose of amlodipine, losartan. Increase home dose of Coreg to 6.25 mg twice daily. Uptitrate as for goal blood pressure. Check A1c, lipid panel. Continue with current insulin sliding scale Lantus. Did have hyponatremia on admission. Recheck CMP today. Check urinalysis. DNR/DNI Cardiac carb consistent, n.p.o. after midnight Lovenox resolution of DVT prophylaxis Protonix OPD prophylaxis PDMP PDMP Reviewed: Not Reviewed Attestations 2 Medical Necessity Statement*: Requires further hospitalization for management of unstable angina with acid hypertension patient with history of CAD Diagnoses Chest pain R07.9 Coronary artery disease involving [place] coronary artery of [place] heart without angina pectoris I25.10 Coronary Disease-Associated Artery/Lesion type: [place] artery [place] vs. transplanted heart: [place] heart Associated angina: without angina Diabetes mellitus type 2 in nonobese E11.9 Sleep apnea G47.30
--- NOTE | 2025-01-23 12:11 | PC.NURSE ---
Patients dexcom is 213 at 1210.
[2025-01-23] MEDS: enoxaparin 40 mg/0.4 mL Syringe 80 MG SUBCUT (12:29)
[2025-01-23] MEDS: montelukast sodium 10 mg Tablet PO (17:23)
[2025-01-23] MEDS: carvedilol 6.25 mg Tablet PO (17:23)
[2025-01-23] MEDS: tamsulosin 0.4 mg Capsule PO (17:23)
[2025-01-23] MEDS: amlodipine 10 mg Tablet PO (20:09)
[2025-01-23] MEDS: insulin glargine 100 units/1 mL 50 UNIT SUBCUT (20:32)
[2025-01-24] MEDS: enoxaparin 80 mg/0.8 mL Syringe SUBCUT ×2 (00:27→11:02)
[2025-01-24] MEDS: pantoprazole 40 mg SDV IVP ×2 (00:28→12:25)
[2025-01-24 04:00] VITALS: BP 149/71; PULSE 86; RESP 17; TEMP 36.8; O2SAT 97
[2025-01-24 04:30] LABS: Basophils # 0.1 10^3/uL (0.0-0.1); Basophils % 0.6 %; Eosinophils # 0.5 10^3/uL (0.0-0.8); Eosinophils % 5.1 %; Hematocrit 38.1 % (37-53); Lymphocytes # 1.7 10^3/uL (0.8-4.8); Lymphocytes % 18.3 %; Mean Corpuscular HGB Conc 33.6 g/dL (30-55); Mean Corpuscular Hemoglobin 31.5 pg (27-33); Mean Corpuscular Volume 93.8 fl (82-101); Mean Platelet Volume 10.3 fL (7.4-10.4); Monocytes # 1.3 10^3/uL (0.2-0.9); Monocytes % 13.3 %; Neutrophils # 5.92 10^3/uL (1.8-7.7); Neutrophils % 62.3 %; Nucleated Red Blood Cells % 0 %; Platelet Count 230 10^3/cmm (157-399); Red Blood Count 4.06 10^6/uL (3.85-5.65); Red Cell Distribution Width 13.1 % (12.1-15.1)
[2025-01-24 04:50] LABS: Chol HDL Ratio 1.91 mg/dL (1.0-5.00); Cholesterol 101 mg/dL (0-200); HDL Cholesterol 53 mg/dL (60-100); LDL Cholesterol Calculated 36 mg/dL (50-129); Triglycerides 61 mg/dL (0-150); VLDL Cholestrol Calculation 12 mg/dL (0-30)
[2025-01-24 04:54] LABS: Alanine Aminotransferase 14 U/L (0-41); Albumin Level 3.6 g/dL (3.5-5.2); Alkaline Phosphatase 69 U/L (40-130); Anion Gap 15.2 (5-19); Aspartate Amino Transferase 15 U/L (0-40); Blood Urea Nitrogen 10 mg/dL (8-23); Calcium 8.7 mg/dL (8.5-10.5); Carbon Dioxide 23 mmol/L (22-29); Chloride 99 mmol/L (98-107); Globulin 2.9 g/dL (1.3-4.6); Glucose 251 mg/dL (65-115); Osmolality Calculated 284 mOsm/kg (285-295); Potassium 4.2 mmol/L (3.5-5.1); Sodium 133 mmol/L (136-145); Total Bilirubin 0.4 mg/dL (0.15-1.2); Total Protein 6.5 g/dL (6.6-8.7)
[2025-01-24 05:03] LABS: Folate Level 16.2 ng/mL (4.5-32.2)
[2025-01-24] MEDS: regadenoson 0.4 Mg/5 ml Syringe IVP (06:45)
[2025-01-24] MEDS: aminophylline 25 mg/mL SDV 20 mL IVP (06:54)
[2025-01-24 06:58] VITALS: BP 102/41; PULSE 85
[2025-01-24 08:00] VITALS: BP 153/67; PULSE 81; RESP 16; TEMP 36.5; O2SAT 96
[2025-01-24 08:13] VITALS: BP 153/67
[2025-01-24] MEDS: acetaminophen 500 mg Tablet 1000 MG PO (08:13)
[2025-01-24] MEDS: aspirin 81 mg EC Tablet PO (08:13)
[2025-01-24] MEDS: atorvastatin 40 mg Tablet PO (08:13)
[2025-01-24] MEDS: losartan 50 mg Tablet 100 MG PO (08:13)
[2025-01-24] MEDS: insulin lispro 100 unit/1 mL SUBCUT ×2 (08:14→12:25)
[2025-01-24] MEDS: clopidogrel 75 mg Tablet PO (08:14)
[2025-01-24] MEDS: carvedilol 6.25 mg Tablet PO (08:14)
[2025-01-24] MEDS: loratadine 10 mg Tablet PO (08:14)
[2025-01-24] MEDS: multivitamin therapeutic Tablet 1 TAB PO (08:14)
[2025-01-24] MEDS: sucralfate 1 gm Tablet PO ×2 (08:14→12:25)
[2025-01-24] MEDS: fluticasone nasal spray 16gm Btl 2 SPRAY INTRANASAL (08:15)
--- NOTE | 2025-01-24 09:38 | NMCV_ITS ---
NM chucky perf SPECT r/s* [id number] Fidel Holliday Age: 79 Gender: M : 1945 Exam Date: 01/24/2025 06:16 Ordering Phys: Carlos Friend MD Technologist: SHILA Wu Exam Location: [facility] Indications: cp STRESS TEST [facility] IMAGE PROTOCOL Rest/Stress 1 Lexiscan Day Radiopharmaceutical Dose (mCi) Administration Site Administered by Rest: Tc-99m 11 IV Sherly Hogan, CONSTRUCTION JOB COST ESTIMATOR Sestamibi Stress:Tc-99m 32.9 IV Sherly Hogan, CONSTRUCTION JOB COST ESTIMATOR Sestamibi Rest: 24-Jan-2025 60 Discovery 630 Stress: 24-Jan-2025 30 Discovery 630 0.4mg Lexiscan. Images obtained in supine and prone position. SPECT RESULTS Technical Quality: Good Raw Data Analysis: Normal Image Corrections: No attenuation or motion correction applied Summed Stress Score: 19 Summed Rest Score: 15 Summed Difference Score: 4 PERFUSION FINDINGS Large area of partially reversible perfusion defect seen in inferolateral wall. This is consistent with large area of prior infarct with large areas of finesse- infarct ischemia in inferolateral wall. Attenuation artifact seen in the inferior wall. FUNCTIONAL RESULTS (calculated via Gated SPECT) Stress Image LV EF (%): 67 Stress EDV (mL):78 TID: 1.02 Stress ESV (mL):26 FUNCTIONAL FINDINGS: There is normal left ventricular systolic function. IMPRESSIONS 1. Abnormal myocardial perfusion imaging with a large area of prior infarct with large finesse-infarct ischemia seen in left circumflex artery territory. 2. Attenuation artifact seen in RCA territory. 3. LV systolic function is normal. Deniz Buckley MD (Electronically Signed) Final Date: 24 January 2025 08:51 S
--- NOTE | 2025-01-24 11:14 | PC.NURSE ---
dexcom reading at 311
[2025-01-24 11:15] VITALS: BP 119/60; PULSE 77; RESP 16; TEMP 36.7; O2SAT 95
--- NOTE | 2025-01-24 11:26 | PC.NURSE ---
patient states he does not do 10 units plus the sliding scale of humalong, he only does the sliding scale. Doctor notified.
--- NOTE | 2025-01-24 11:45 | PM.CONSULT ---
Providers/Reason For Consult Consulting Physician/Specialty*: Dr Buckley, cardiology Reason for Consult*: abnormal stress test Requesting Physician: Luis Alberto Hardwick Attending Physician: Luis Alberto Hardwick Primary Care Provider: Michelle Burroughs APRN History of Present Illness History of Present Illness Fidel Holliday is a 79 year old male with past medical history of CAD, carotid artery disease, hypertension, PVD, AMIE, diabetes, COPD. He presented to the emergency room 01/22/2025 with high blood pressure and tightness in the chest. Troponin series: 15-> 17-> 18. Echocardiogram revealing LVEF 60 to 65%, mild aortic stenosis (mean gradient 10 mmHg, CLAUDIA 1.78 cm?). At the time of symptom onset he noted rapid heart rate, no atrial fibrillation has been noted. He underwent further evaluation with Lexiscan stress test which showed large area of prior infarct with large finesse-infarct ischemia in the left circumflex territory. Most recent coronary angiogram 03/22/2024 revealed moderate diffuse disease of the left circumflex, OM 2 totally occluded OM 3 small size with severe disease, mid LAD 40% stenosis, large sized diagonal 90% stenosis which underwent PCI at that time, mild to moderate luminal irregularity of the RCA. The left circumflex disease is not amenable to intervention. Review of Systems Const: Denies: fever(s), chills, change in weight, fatigue or diaphoresis Eyes: Denies: change in vision ENMT: Denies: epistaxis Card: Denies: chest pain, palpitations, irregular heart rhythm, edema, syncope, pre-syncope, dyspnea on exertion, orthopnea or leg pain with exertion Resp: Denies: dyspnea, productive cough or wheezing GI: Denies: nausea, vomiting, hematemesis, hematochezia or melena : Denies: hematuria Musc: Denies: extremity swelling Brando/Lymph: Denies: easy bruising or easy bleeding Medications/Allergies Home Medications ?Medication ?Instructions ?Recorded ?Confirmed ?Last Taken ?Type losartan 100 mg tablet 100 mg PO QAM 11/08/19 01/23/25 06/26/24 History montelukast 10 mg tablet 10 mg PO QPM 11/08/19 01/23/25 06/26/24 History (Singulair) fluticasone propionate 50 2 spray intranasal DAILY 08/31/20 01/23/25 03/21/24 22:00 History mcg/actuation nasal spray,suspension (Flonase Allergy Relief) acetaminophen 500 mg tablet 1,000 mg PO Q6H PRN pain 11/21/20 01/23/25 Unknown History (Tylenol Extra Strength) amlodipine 10 mg tablet 10 mg PO BEDTIME 11/21/20 01/23/25 06/26/24 History tamsulosin 0.4 mg capsule 0.4 mg PO QPM 11/21/20 01/23/25 06/26/24 History insulin aspart U-100 100 unit/mL 10 unit SUBCUT TID 02/16/21 01/23/25 03/21/24 18:00 History (3 mL) subcutaneous pen (Novolog FlexPen U-100 Insulin aspart) insulin glargine 100 unit/mL 54 unit SUBCUT DAILY@02/16/21 01/23/25 06/26/24 History subcutaneous solution (Lantus U-100 Insulin) ipratropium bromide 21 mcg (0.03 2 spray intranasal TID PRN Allergy 02/16/21 01/23/25 06/26/24 History %) nasal spray Symptoms aspirin 81 mg tablet,delayed 81 mg PO DAILY #30 tabs 12/29/23 01/23/25 06/26/24 Rx release (Adult Low Dose Aspirin) atorvastatin 40 mg tablet 40 mg PO DAILY #90 tabs 12/29/23 01/23/25 06/26/24 Rx carvedilol 3.125 mg tablet 3.125 mg PO BID #60 tabs 02/17/24 01/23/25 06/26/24 Rx azelastine 137 mcg (0.1 %) nasal 1 spray intranasal BID PRN 03/09/24 01/23/25 03/21/24 22:00 History spray ALLERGIC RHINITIS calcium polycarbophil 625 mg tablet 1,250 mg PO DAILY 03/09/24 01/23/25 06/26/24 History cholecalciferol (vitamin D3) 50 50 mcg PO DAILY 03/09/24 01/23/25 06/26/24 History mcg (2,000 unit) tablet (Vitamin D3) docusate sodium 100 mg capsule 100 mg PO TID PRN SOFTEN STOOLS 03/09/24 01/23/25 03/21/24 18:00 History (Colace) lactobacillus combination no.4 3 3,000 mmu cells PO QPM 03/09/24 01/23/25 06/26/24 History billion cell capsule (Probiotic) multivitamin with iron 1 tab PO DAILY 03/09/24 01/23/25 06/26/24 History scopolamine base 1 mg over 3 days 1 patch transdermal Q3D PRN Motion 03/09/24 01/23/25 06/27/24 History transdermal patch (Transderm-Scop) Sickness terbinafine HCl 1 % topical cream 1 applic topical BID FUNGAL SKIN 03/09/24 01/23/25 06/26/24 History INFECTION triamcinolone acetonide 0.1 % 1 applic topical BID PRN CONTACT 03/09/24 01/23/25 06/26/24 History topical ointment DERMATITIS clopidogrel 75 mg tablet 75 mg PO DAILY #90 tabs 03/30/24 01/23/25 06/26/24 Rx albuterol sulfate 2.5 mg/3 mL 2.5 mg inhalation Q6H PRN 01/23/25 01/23/25 Unknown History (0.083 %) solution for nebulization Shortness Of Breath Or Wheezing albuterol sulfate 90 mcg/actuation 2 puff inhalation QID PRN 01/23/25 01/23/25 Unknown History aerosol inhaler (Ventolin HFA) Shortness Of Breath cetirizine 10 mg tablet (Zyrtec) 10 mg PO DAILY 01/23/25 01/23/25 Unknown History erythromycin 5 mg/gram (0.5 %) eye 1 applic ophthalmic (eye) BEDTIME 01/23/25 01/23/25 Unknown History ointment (3.5 gram tube) [id number] 3.5 1 drp ophthalmic (eye) QID 01/23/25 01/23/25 Unknown History mg/mL-10,000 unit/mL-0.1% eye drops pantoprazole 40 mg tablet,delayed 40 mg PO DAILY 01/23/25 01/23/25 Unknown History release sucralfate 100 mg/mL oral 5 ml PO QID DENTAL 01/23/25 01/23/25 Unknown History suspension Allergies Allergy/AdvReac Type Severity Reaction Status Date / Time artichoke Allergy ALGY-Swell Verified 12/07/24 10:05 Lip/Tongue/Throat Current Medications Generic Name Dose Route Start Last Admin Trade Name Silverioq PRN Reason Stop Dose Admin Acetaminophen 1,000 mg 01/23/25 01:22 01/24/25 08:13 Acetaminophen 500 Mg Tablet PO 1,000 mg Q6H PRN Administration PAIN Aminophylline 25 mg 01/24/25 06:26 01/24/25 06:54 Aminophylline 25 Mg/Ml Sdv 20 Ml IVP 01/25/25 06:25 25 mg Q2M PRN Administration see dose instructions Amlodipine Besylate 10 mg 01/23/25 21:00 01/23/25 20:09 Amlodipine 10 Mg Tablet PO 10 mg BEDTIME TRISH Administration Aspirin 81 mg 01/23/25 09:00 01/24/25 08:13 Aspirin 81 Mg Ec Tablet PO 81 mg DAILY TRISH Administration Atorvastatin Calcium 40 mg 01/23/25 09:00 01/24/25 08:13 Atorvastatin 40 Mg Tablet PO 40 mg DAILY TRISH Administration Carvedilol 6.25 mg 01/23/25 18:00 01/24/25 08:14 Carvedilol 6.25 Mg Tablet PO 6.25 mg BID TRISH Administration Clopidogrel Bisulfate 75 mg 01/23/25 09:00 01/24/25 08:14 Clopidogrel 75 Mg Tablet PO 75 mg DAILY TRISH Administration Enoxaparin Sodium 80 mg 01/23/25 23:30 01/24/25 11:02 Enoxaparin 80 Mg/0.8 Ml Syringe SUBCUT 80 mg Q12H TRISH Administration Fluticasone Propionate 2 spray 01/23/25 09:00 01/24/25 08:15 Fluticasone Nasal [place] 16gm Btl INTRANASAL 2 spray DAILY TRISH Administration Insulin Glargine 50 unit 01/23/25 21:00 01/23/25 20:32 Insulin Glargine 100 Units/1 Ml SUBCUT 50 unit BEDTIME TRISH Administration Insulin Human Lispro 0 unit 01/23/25 08:00 01/24/25 08:14 Insulin Lispro 100 Unit/1 Ml SUBCUT 4 unit WM&BEDTIME TRISH Administration Protocol Loratadine 10 mg 01/23/25 09:00 01/24/25 08:14 Loratadine 10 Mg Tablet PO 10 mg DAILY TRISH Administration Losartan Potassium 100 mg 01/23/25 09:00 01/24/25 08:13 Losartan 50 Mg Tablet PO 100 mg DAILY TRISH Administration Montelukast Sodium 10 mg 01/23/25 18:00 01/23/25 17:23 Montelukast Sodium 10 Mg Tablet PO 10 mg QPM TRISH Administration Multivitamins Therapeutic 1 tab 01/23/25 09:00 01/24/25 08:14 Multivitamin Therapeutic Tablet PO 1 tab DAILY TRISH Administration Pantoprazole Sodium 40 mg 01/23/25 01:22 01/24/25 00:28 Pantoprazole 40 Mg Sdv IVP 40 mg Q12H TRISH Administration Sucralfate 1 gm 01/23/25 09:00 01/24/25 08:14 Sucralfate 1 Gm Tablet PO 1 gm QID TRISH Administration Tamsulosin HCl 0.4 mg 01/23/25 18:00 01/23/25 17:23 Tamsulosin 0.4 Mg Capsule PO 0.4 mg QPM TRISH Administration PFSH Acute PFSH: Medical History (Updated 01/23/25 @ 03:40 by Jacinto Smith DO) CAD (coronary artery disease) Peripheral vascular disease PAD (peripheral artery disease) Peripheral vascular disease Bilateral carotid artery stenosis Sleep apnea COPD (chronic obstructive pulmonary disease) Hypertension Seizure disorder Hearing loss History of left common carotid artery stent placement GERD (gastroesophageal reflux disease) Diabetes Surgical History Status post laparoscopic cholecystectomy (12/01/19) H/O knee surgery History of back surgery S/P appendectomy Status post colonoscopy with polypectomy H/O esophagogastroduodenoscopy Family History Other CAD (coronary artery disease) Cancer Dementia Diabetes Hyperlipidemia Hypertension Postsurgical cardiac pacemaker in situ Stroke Social History (Updated 01/23/25 @ 00:04 by Adebayo Price MD) Smoking and tobacco/nicotine status: former use of tobacco/nicotine Quit status (tobacco/nicotine): has quit using Year quit tobacco: 1998 Former quit date comment: After smoking 56 years at a pack a day Alcohol intake: current Alcohol intake frequency: holidays/special occasions only Substance/Drug Use: never Additional social history: He is 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 Patient is companied by his Usha to whom he has been 63 years. Patient wants DNR status confirmed today 01/23/2025 with Adebayo Price MD Marital status: Marital status details: Usha Current occupational status: retired Previous occupational history: [employer] 38 years Vitals/I&O/Wt Last Vital Signs Temp 98.0 F 01/24/25 11:15 Pulse 77 01/24/25 11:15 Resp 16 01/24/25 11:15 BP 119/60 01/24/25 11:15 Pulse Ox 95 01/24/25 11:15 O2 Del Method Room Air 01/24/25 08:00 FiO2 21 01/23/25 01:30 01/23/25 01/24/25 01/24/25 22:59 06:59 14:59 Intake Total 240 / 1600 Output Total 1100 / 2550 750 / 2550 310 / 310 Balance -860 / -950 -750 / -950 -310 / -310 Weight last 48 hrs Weight 167 lb 3.2 oz Weight 167 lb 3.2 oz Weight 168 lb 14.4 oz Weight 170 lb 3.2 oz Weight 165 lb 2 oz Weight 173 lb Physical Exam Const: COMMON NORMALS: no acute distress and patient oriented x3 GENERAL APPEARANCE: cooperative and comfortable ORIENTATION/CONSCIOUSNESS: Yes awake, Yes oriented to person, Yes oriented to place and Yes oriented to time Chest: COMMONS NORMALS: normal inspection of the chest and normal palpation of entire chest wall CHEST: Yes Symmetrical chest wall rise Resp: COMMON NORMALS: normal respiratory effort, No retractions, No use of accessory muscles and clear to auscultation bilaterally EFFORT & INSPECTION: Yes symmetric chest movement AUSCULTATION: clear to auscultation bilaterally Cardio: COMMON NORMALS: regular rate, regular rhythm, S1 normal heart sound present, S2 normal heart sound present, No gallops present (Cardio), No clicks present (Cardio), No murmurs present (Cardio) and No rub (Cardio) RATE: regular rate RHYTHM: regular rhythm HEART SOUNDS: S1 normal heart sound present and S2 normal heart sound present PERIPHERAL PULSES: radial pulses present Extremity: COMMON NORMALS: no pedal edema Neuro: COMMON NORMALS: patient oriented x3 and moves all extremities SENSORIUM/ORIENTATION: Yes oriented to person, Yes oriented to place and Yes oriented to time Data 01/24/25 03:26 01/24/25 03:26 A&P Assessment and plan (1) CAD (coronary artery disease): (2) Peripheral vascular disease: (3) Hypertension: (4) Diabetes mellitus type 2 in nonobese: Plan Given that he has been chest pain-free today, blood pressure has been well-controlled, the stress test does not show any new areas of ischemia and he is not desiring of coronary angiogram he is okay to discharge home with event monitor. He can follow-up with cardiology clinic in 2 weeks. PDMP PDMP Reviewed: Not Reviewed Coding Level of Care Code Acute Code for [facility] Fwd Diagnoses Coronary artery disease involving [place] coronary artery of [place] heart without angina pectoris I25.10 Coronary Disease-Associated Artery/Lesion type: [place] artery [place] vs. transplanted heart: [place] heart Associated angina: without angina Peripheral vascular disease I73.9 Essential hypertension I10 Hypertension type: essential hypertension Diabetes mellitus type 2 in nonobese E11.9
--- NOTE | 2025-01-24 13:25 | PM.DCS ---
Discharge Providers Date of Admission: 01/22/25 23:31 Date of Discharge: January 24, 2025 Attending Provider at Admission: Adebayo Price MD Attending Provider at Discharge: Luis Alberto Hardwick Primary Care Provider: Michelle Burroughs APRN Diagnoses at Discharge Discharge Diagnosis (1) CAD (coronary artery disease): Status: Acute Qualifiers: Associated angina: without angina Coronary Disease-Associated Artery/Lesion type: [place] artery [place] vs. transplanted heart: [place] heart Qualified Code(s): I25.10 - Atherosclerotic heart disease of [place] coronary artery without angina pectoris (2) Peripheral vascular disease: Status: Acute (3) Hypertension: Status: Acute Qualifiers: Hypertension type: essential hypertension Qualified Code(s): I10 - Essential (primary) hypertension (4) Diabetes mellitus type 2 in nonobese: Status: Acute Reason for Visit Reason for Visit: BP high Chest pressure left shoulder pain Brief History: Fidel Holliday is a 79 year old male with history of coronary artery disease comes in with chest pressure while working at his [employer]. 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 Blood pressure was 200/90 and he was given Nitropaste and morphine. He was given metoprolol. Blood pressure dropped from 180 systolic slowly to 140 then he had an episode of bradycardia to the 50s and systolic blood pressure 80. That has since recovered. Patient reports some nausea and also blood pressure erratic for 2 weeks 178/80 heart rate 89 on the high and and 113/63 heart rate 70 on the low end. He has not had chest pain exactly but he did have tightness today. Last week he was not having tightness but blood pressure has been erratic for 2 weeks. Coronary history includes left circumflex obtuse marginal [address] Aguilar on 12/28/2023. Patient later had an LAD diagonal stented by Dr. Buckley on 03/22/2024. He also has history of right carotid endarterectomy [address] Duenas and a left carotid stent 2013 done at an outside hospital Hospital Course Hospital Course He was admitted overnight continued on DAPT, stress test was requested and performed today. Echocardiogram was done and showed normal ejection fraction, mild AVS, mild TVR, trace MVR, trace PVR. He remained free of chest pain. Blood pressures elevated on presentation improved.. He was continued on his antihypertensives. Stress test was done and coming back abnormal with large area of prior infarct with large finesse-infarct ischemia seen in the left circumflex artery territory. Cardiology was consulted and discussed with him findings and further options given already prior revascularization and limitations of the area. He has remained chest pain-free and after discussion of options he is discharging from the hospital with follow-up with cardiology in office on continued medical therapy. As he reported an episode of palpitations preceding his severe hypertension, he is set up with a playground monitor, additionally due to severe hypertensive episode/hypertensive urgency despite taking his usual medications he is set up with as needed hydralazine. Please reassess blood pressures and symptoms and continue to optimize cardiovascular risks. Physical Exam Narrative: Comfortable, pleasant, conversant. In bed. On revisit sitting up in chair. Accompanied by his . Const: COMMON NORMALS: patient oriented x3 and alert GENERAL APPEARANCE: cooperative ORIENTATION/CONSCIOUSNESS: Yes awake HENMT: COMMON NORMALS: oropharynx normal Neck/C-Spine: COMMON NORMALS: no JVD Resp: COMMON NORMALS: normal respiratory effort and clear to auscultation bilaterally AUSCULTATION: clear to auscultation bilaterally Cardio: COMMON NORMALS: no JVD, regular rhythm, S1 normal heart sound present, S2 normal heart sound present and No murmurs present (Cardio) RHYTHM: regular rhythm HEART SOUNDS: S1 normal heart sound present and S2 normal heart sound present GI: COMMON NORMALS: Normal to inspection, nondistended, normoactive bowel sounds present, Soft to palpation and non-tender PALPATION: Yes Soft to palpation Extremity: COMMON NORMALS: no joint enlargement and no pedal edema Neuro: COMMON NORMALS: patient oriented x3 and moves all extremities SENSORIUM/ORIENTATION: Yes alert Skin: COMMON NORMALS: no rashes or lesions noted GENERAL SKIN EXAM: no rashes or lesions noted Discharge Data Studies Completed and Pending Completed Studies During Hospitalization Category Date Time Status Sestamibi Stress Test Request Routine Exams 01/23/25 09:38 Draft XR chest 1V portable [id number] Stat Exams 01/22/25 18:51 Completed NM chucky perf SPECT r/s* [id number] Routine Nuc Med 01/24/25 09:38 Completed CV. echo complete* [id number] Routine Ultrasound 01/23/25 09:38 Completed Pending at discharge Category Date Time Status MAG [Magnesium] AM LABS Lab 01/25/25 04:00 Ordered MAG [Magnesium] AM LABS Lab 01/26/25 04:00 Ordered Radiology Impressions Chest X-Ray 01/22/25 18:51 IMPRESSION: Hyperinflated but clear lungs. No other acute cardiopulmonary abnormality. Laboratory Results WBC 9.50 10^3/uL (3.29-11.43) 01/24/25 03:26 RBC 4.06 10^6/uL (3.85-5.65) 01/24/25 03:26 Hgb 12.80 g/dL (11.27-16.99) 01/24/25 03:26 Hct 38.1 % (37-53) 01/24/25 03:26 MCV 93.8 fl (82-101) 01/24/25 03:26 MCH 31.5 pg (27-33) 01/24/25 03:26 MCHC 33.6 g/dL (30-55) 01/24/25 03:26 RDW 13.1 % (12.1-15.1) 01/24/25 03:26 Plt Count 230 10^3/cmm (157-399) 01/24/25 03:26 MPV 10.3 fL (7.4-10.4) 01/24/25 03:26 Neut % (Auto) 62.3 % 01/24/25 03:26 Lymph % (Auto) 18.3 % 01/24/25 03:26 [place] % (Auto) 13.3 % 01/24/25 03:26 Eos % (Auto) 5.1 % 01/24/25 03:26 Baso % (Auto) 0.6 % 01/24/25 03:26 Neut # (Auto) 5.92 10^3/uL (1.8-7.7) 01/24/25 03:26 Lymph # (Auto) 1.7 10^3/uL (0.8-4.8) 01/24/25 03:26 [place] # (Auto) 1.3 10^3/uL (0.2-0.9) H 01/24/25 03:26 Eos # (Auto) 0.5 10^3/uL (0.0-0.8) 01/24/25 03:26 Baso # (Auto) 0.1 10^3/uL (0.0-0.1) 01/24/25 03:26 Nucleated RBC % (auto) 0 % 01/24/25 03:26 Nucleated RBCs # 0.0 /100WBC 01/24/25 03:26 PT 13.10 SECONDS (12.1-14.9) 01/22/25 18:47 INR 0.92 (0.8-1.2) 01/22/25 18:47 APTT 26.0 SECONDS (23.9-36.7) 01/22/25 18:47 Sodium 133 mmol/L (136-145) L 01/24/25 03:26 Potassium 4.2 mmol/L (3.5-5.1) 01/24/25 03:26 Chloride 99 mmol/L (98-107) 01/24/25 03:26 Carbon Dioxide 23 mmol/L (22-29) 01/24/25 03:26 Anion Gap 15.2 (5-19) 01/24/25 03:26 BUN 10 mg/dL (8-23) 01/24/25 03:26 Creatinine 0.9 mg/dL (0.7-1.2) 01/24/25 03:26 GFR Calculation Not Reportable 01/24/25 03:26 Glucose 251 mg/dL (65-115) H 01/24/25 03:26 POC Glucose 215 mg/dL (70-110) H 01/23/25 06:58 Estimat Average Glucose 169 01/22/25 18:47 Hemoglobin A1c 7.5 % (4.0-6.0) H 01/22/25 18:47 Calculated Osmolality 284 mOsm/kg (285-295) L 01/24/25 03:26 Calcium 8.7 mg/dL (8.5-10.5) 01/24/25 03:26 Magnesium 2.0 mg/dL (1.7-2.3) 01/24/25 03:26 Iron 51 ug/dL (59-158) L 01/23/25 00:54 TIBC 226 mcg/dl 01/23/25 00:54 % Saturation 22.5 % (20-50) 01/23/25 00:54 Unsat Iron Binding 175 ug/dL (112-347) 01/23/25 00:54 Total Bilirubin 0.4 mg/dL (0.15-1.2) 01/24/25 03:26 AST 15 U/L (0-40) 01/24/25 03:26 ALT 14 U/L (0-41) 01/24/25 03:26 Alkaline Phosphatase 69 U/L (40-130) 01/24/25 03:26 Troponin T Baseline 15 ng/L (0-15) 01/22/25 18:47 Troponin T 120 Minute 17.86 ng/L (0-15) H 01/22/25 20:50 Delta Troponin T 2.86 ABS# (0-10) 01/22/25 20:50 Troponin T Hi Sens 6Hr 18.22 ng/L (0-15) H 01/23/25 00:54 Troponin T Hi Sens 6Hr Delta 3.22 ng/L (0-12) 01/23/25 00:54 NT-Pro-B Natriuret Pep 231 pg/mL (0-450) 01/22/25 18:47 Total Protein 6.5 g/dL (6.6-8.7) L 01/24/25 03:26 Albumin 3.6 g/dL (3.5-5.2) 01/24/25 03:26 Globulin 2.9 g/dL (1.3-4.6) 01/24/25 03:26 Triglycerides 61 mg/dL (0-150) 01/24/25 03:26 Cholesterol 101 mg/dL (0-200) 01/24/25 03:26 LDL Cholesterol, Calc 36 mg/dL (50-129) L 01/24/25 03:26 Total VLDL Cholesterol 12 mg/dL (0-30) 01/24/25 03:26 HDL Cholesterol 53 mg/dL (60-100) L 01/24/25 03:26 Cholesterol/HDL Ratio 1.91 mg/dL (1.0-5.00) 01/24/25 03:26 Vitamin B12 497 pg/mL (232-1245) 01/23/25 00:54 Folate 16.2 ng/mL (4.5-32.2) 01/24/25 03:26 TSH 3.17 uIU/mL (0.27-4.20) 01/23/25 00:54 Vitals Last Vital Signs Temp 98.0 F 01/24/25 11:15 Pulse 77 01/24/25 11:15 Resp 16 01/24/25 11:15 BP 119/60 01/24/25 11:15 Pulse Ox 95 01/24/25 11:15 O2 Del Method Room Air 01/24/25 08:00 FiO2 21 01/23/25 01:30 Discharge Plan Discharge Patient Disposition: Home Health Service Condition: Stable Prescriptions: New hydralazine 25 mg tablet 25 mg PO BID PRN (Reason: hypertension) Qty: 30 0RF Rx Instructions: For SBP >150, DBP >90 nitroglycerin 0.4 mg tablet, sublingual 0.4 mg sublingual Q5M PRN (Reason: chest pain) Qty: 25 0RF Rx Instructions: do not exceed 3 doses per episode Continued losartan 100 mg tablet 100 mg PO QAM montelukast [Singulair] 10 mg tablet 10 mg PO QPM atorvastatin 40 mg tablet 40 mg PO DAILY Qty: 90 4RF clopidogrel 75 mg tablet 75 mg PO DAILY Qty: 90 3RF carvedilol 3.125 mg tablet 3.125 mg PO BID Qty: 60 1RF Rx Instructions: must administer with a meal/food fluticasone propionate [Flonase Allergy Relief] 50 mcg/actuation [place],Suspension 2 spray intranasal DAILY insulin aspart U-100 [Novolog FlexPen U-100 Insulin] 100 unit/mL (3 mL) insulin pen 10 unit SUBCUT TID acetaminophen [Tylenol Extra Strength] 500 mg Tablet 1,000 mg PO Q6H PRN (Reason: pain) tamsulosin 0.4 mg capsule 0.4 mg PO QPM amlodipine 10 mg tablet 10 mg PO BEDTIME Lantus U-100 Insulin 100 unit/mL solution 54 unit SUBCUT DAILY@21 ipratropium bromide 21 mcg (0.03 %) spray,non-aerosol 2 spray INTRANASAL TID PRN (Reason: Allergy Symptoms) aspirin [Adult Low Dose Aspirin] 81 mg tablet,delayed release (DR/EC) 81 mg PO DAILY Qty: 30 0RF terbinafine HCl 1 % Cream 1 applic TOPICAL BID triamcinolone acetonide 0.1 % Ointment 1 applic TOPICAL BID PRN (Reason: CONTACT DERMATITIS) calcium polycarbophil 625 mg Tablet 1,250 mg PO DAILY docusate sodium [Colace] 100 mg Capsule 100 mg PO TID PRN (Reason: SOFTEN STOOLS) azelastine 137 mcg (0.1 %) Leonard,Non-Aerosol 1 spray INTRANASAL BID PRN (Reason: ALLERGIC RHINITIS) Rx Instructions: administer into each nostril scopolamine base [Transderm-Scop] 1 mg over 3 days Patch 3 Day 1 patch TRANSDERMAL Q3D PRN (Reason: Motion Sickness) multivitamin with iron Tablet 1 tab PO DAILY cholecalciferol (vitamin D3) [Vitamin D3] 50 mcg (2,000 unit) Tablet 50 mcg PO DAILY Probiotic 3 billion cell Capsule 3,000 mmu cells PO QPM Rx Instructions: administer with a meal albuterol sulfate 2.5 mg /3 mL (0.083 %) Solution For Nebulization 2.5 mg INHALATION Q6H PRN (Reason: Shortness Of Breath Or Wheezing) cetirizine [Zyrtec] 10 mg Tablet 10 mg PO DAILY albuterol sulfate [Ventolin HFA] 90 mcg/actuation Hfa Aerosol Inhaler 2 puff INHALATION QID PRN (Reason: Shortness Of Breath) sucralfate 100 mg/mL Suspension 5 ml PO QID Rx Instructions: swish in mouth and swallow; use after food/drink pantoprazole 40 mg Tablet,Delayed Release (Dr/Ec) 40 mg PO DAILY erythromycin 5 mg/gram (0.5 %) ointment 1 applic ophthalmic (eye) BEDTIME neomycin-polymyxin B-dexameth 3.5mg/mL-10,000 unit/mL-0.1 % drops,suspension 1 drp ophthalmic (eye) QID Discharge Orders: Discharge Order (Routine); Ordered 01/24/25 Ordered By: Luis Alberto Hardwick Other Ambulatory Orders: MCT/Event Monitor 21 Days (Routine) Timeframe: 1 Day Facility: [facility] - Location: Radiology Ordered By: Luis Alberto Hardwick Referrals: [facility] [Outside] Michelle Burroughs APRN [Primary Care Provider, Family Practice] - 01/31/25 11:00 am Mansi Moreno FNP [Nurse Practitioner, Cardiology] - 2 weeks Discharge Diet: Cardiac and Diabetic Patient Instructions: Coronary Artery Disease (GEN), Chronic Hypertension (GEN), Opioid Safety, Patient Portal & [place] Instructions Activity Restrictions/Additional Instructions: Please follow up to set up for the playground monitor. Measure blood pressures 2-3 times daily. Target blood pressures 120/80. If blood pressures are over 150/90 and you already took your regular medicine, take a dose of hydralazine. Follow up with cardiology and primary doctor for reassessment of the above and of coronary artery disease and to continue to optimize cardiovascular risks. Seek medical attention in case of worsening or new concerning symptoms. Discharge Attestations Time Spent in Discharge Care*: greater than 30 min Status at Discharge: Cognitive status at discharge: cognitively intact, Behavioral status at discharge: cooperative, Quality Metrics Clinical Quality Measures [ No reported AMI, CVA or VTE this stay] Coding Level of Care Code 16546 Total time (in minutes) for Discharge: 50 Diagnoses Coronary artery disease involving [place] coronary artery of [place] heart without angina pectoris I25.10 Associated angina: without angina Coronary Disease-Associated Artery/Lesion type: [place] artery [place] vs. transplanted heart: [place] heart Peripheral vascular disease I73.9 Essential hypertension I10 Hypertension type: essential hypertension Diabetes mellitus type 2 in nonobese E11.9
[2025-01-24 13:39] VITALS: BP 119/60; PULSE 77; RESP 16; TEMP 36.7; O2SAT 95
== END 2025-01-24 15:05 | disposition home health service (06) ==
LOC: ER 18:55 → CSU 23:49
PROVIDERS: Student in an Organized Health Care Education/Training Program; Admitting Provider Internal Medicine; Emergency Provider Emergency Medicine; PCP Nurse Practitioner Family; Visit Provider Internal Medicine
DX: I25.10 Atherosclerotic heart disease of native coronary artery without angina pectoris (principal); I73.9 Peripheral vascular disease, unspecified; I10 Essential (primary) hypertension; E11.9 Type 2 diabetes mellitus without complications; K21.9 Gastro-esophageal reflux disease without esophagitis; Z79.82 Long term (current) use of aspirin; Z79.4 Long term (current) use of insulin; J44.9 Chronic obstructive pulmonary disease, unspecified; G47.33 Obstructive sleep apnea (adult) (pediatric); Z95.5 Presence of coronary angioplasty implant and graft; G40.909 Epilepsy, unspecified, not intractable, without status epilepticus; Z66 Do not resuscitate; Z87.891 Personal history of nicotine dependence
CPT/HCPCS: 36415; 36416; 71045; 78452; 80053; 80061; 82607; 82746; 82962; 83036; 83540; 83550; 83735; 83880; 84443; 84484; 85025; 85610; 85730; 93005; 93306; 94660; 96361; 96372; 96374; 96375; 96376; 99285; A9500; G0378; J0280; J1650; J1815; J2270; J2405; J2470; J2785; J3480; J3490; J7030; J9999

== ENCOUNTER → 2025-02-07 13:43 | Outpatient (BNVA) | payer OTHER, SELFPAY | PROVIDERS: PCP Family Medicine Geriatric Medicine; Visit Provider Nurse Practitioner Family | DX: I25.10 Atherosclerotic heart disease of native coronary artery without angina pectoris (principal); Z09 Encounter for follow-up examination after completed treatment for conditions other than malignant neoplasm; I10 Essential (primary) hypertension; I73.9 Peripheral vascular disease, unspecified; E11.49 Type 2 diabetes mellitus with other diabetic neurological complication; Z79.4 Long term (current) use of insulin; Z79.02 Long term (current) use of antithrombotics/antiplatelets; Z79.82 Long term (current) use of aspirin; Z95.5 Presence of coronary angioplasty implant and graft; Z87.891 Personal history of nicotine dependence | CPT/HCPCS: 99213 ==

== ENCOUNTER → 2025-06-27 15:03 | Outpatient (BNVA) | payer OTHER, SELFPAY | PROVIDERS: PCP Family Medicine Geriatric Medicine; Visit Provider Internal Medicine Cardiovascular Disease | DX: I25.10 Atherosclerotic heart disease of native coronary artery without angina pectoris (principal); I10 Essential (primary) hypertension; I35.0 Nonrheumatic aortic (valve) stenosis; Z87.891 Personal history of nicotine dependence | CPT/HCPCS: 99214 ==